=== PATIENT | female | born 1950 | race Caucasian/White ===

== ENCOUNTER → 2017-08-14 09:40 | Outpatient (CLI) | payer MEDICARE, SELFPAY ==
--- NOTE | 2017-08-14 | BRBX_PTH ---
PATIENT: ROMAN KUHN LOC: [facility] U#:[id number] AGE/SX: 74/F ROOM: RE08/14/[address]: Dr. Rakesh Blevins MD : [id number] BED: DIS: SPEC #: [id number] RECD: 08/14/17 14:41 STATUS: VICK RELoi #: [id number] ADINA: 08/14/17 00:[address]: Rakesh Blevins DEPT: SURGICAL PATHOLOGY RECD BY: Maynor Hidalgo ENTERED: 08/14/17 14:42 SP TYPE: BREAST BX OTHR DR: Dr. Alphonse Reyes MD Tissues: Left breast, NOS Procedures: Surgery Specimen Level IV HEADER OPERATION: Left breast stereotactic needle core biopsy PRE-OP DIAGNOSIS: 12 o?clock microcalcifications post depth TISSUE SUBMITTED: Left breast ISCHEMIC TIME: 2 minutes FIXATION TIME: 9.5 hours MICROSCOPIC DIAGNOSIS Left breast, stereotactic needle core biopsy: Adenosis and focal intraductal hyperplasia without atypia. Microfibroadenoma. Banal microcalcifications. No evidence of malignancy. AM:sayra 08/15/17 MICROSCOPIC DESCRIPTION Slides are reviewed. GROSS DESCRIPTION Received in fixative is one container labeled with the patient's name and designated left breast. The specimen consists of multiple irregular and elongated fragments of yellow-white soft tissue that in aggregate measure 7 x 2.2 x 0.2 cm. The specimen is totally submitted in three cassettes. / AM:sayra 08/14/17 TC:5 CPT: 14461
--- NOTE | 2017-08-14 19:32 | PCM.OPRPT ---
Report of Operation Date of Procedure: 08/14/17 Pre-Operative Diagnosis: left breast microcalcifications Post-Operative Diagnosis: left breast microcalcification Surgery/Procedure Performed:: left stereotactic breast biopsy 12:00 deep location with specimen radiograph and gel marker clip placement flask fitter: None Type of Anesthesia:: Local Specimen's removed: left breast tissue Description of Procedure: The patient was brought to the stereotactic suite and informed of the plan course of events. The left breast was positioned in the true lateral to medial position on the [place] stereotactic table. mammographic images didn't position but this is very close to the posterior aspect and required adjustment of the stroke margin. Attempts then to try a cc or a medial to lateral approach, failed to give good localization abnormality. The patient was again positioned in the left true lateral to medial position. Mammographic image demonstrated the area of abnormality to be located in the center of the radiograph. Stereotactic images were then obtained which demonstrated good positioning of the abnormality for biopsy with good stroke mateo parameters. The breast was cleaned with Betadine area did one percent lidocaine was used to anesthetize the skin and a small stab incision made. An 8-gauge mammotome needle was placed into the pre-fire position. Stereotactic images demonstrated good positioning around the planned biopsy site. Local anesthetic injected deeply in the breast. The needle was deployed. Post deployment images demonstrated good positioning of the planned biopsy site. Multiple vacuum-assisted samples were obtained and ugiqwe-oyn-fjzoc fashion. Specimen radiograph demonstrated few micro-calcifications in the sample. A gel marker clip was deployed. Post biopsy images demonstrated good position of the clip relative the biopsy cavity. The breast was removed from compression. Steri-Strips and a dressing applied. Post procedure mammogram images were obtained.
--- NOTE | 2017-08-14 19:35 | OP.PCM_ITS ---
Report of Operation Date of Procedure: 08/14/17 Pre-Operative Diagnosis: left breast microcalcifications Post-Operative Diagnosis: left breast microcalcification Surgery/Procedure Performed:: left stereotactic breast biopsy 12:00 deep location with specimen radiograph and gel marker clip placement histology technologist: None Type of Anesthesia:: Local Specimen's removed: left breast tissue Description of Procedure: The patient was brought to the stereotactic suite and informed of the plan course of events. The left breast was positioned in the true lateral to medial position on the [place] stereotactic table. mammographic images didn't position but this is very close to the posterior aspect and required adjustment of the stroke margin. Attempts then to try a cc or a medial to lateral approach, failed to give good localization abnormality. The patient was again positioned in the left true lateral to medial position. Mammographic image demonstrated the area of abnormality to be located in the center of the radiograph. Stereotactic images were then obtained which demonstrated good positioning of the abnormality for biopsy with good stroke mateo parameters. The breast was cleaned with Betadine area did one percent lidocaine was used to anesthetize the skin and a small stab incision made. An 8-gauge mammotome needle was placed into the pre-fire position. Stereotactic images demonstrated good positioning around the planned biopsy site. Local anesthetic injected deeply in the breast. The needle was deployed. Post deployment images demonstrated good positioning of the planned biopsy site. Multiple vacuum-assisted samples were obtained and nugtmu-jag-vdzhn fashion. Specimen radiograph demonstrated few micro-calcifications in the sample. A gel marker clip was deployed. Post biopsy images demonstrated good position of the clip relative the biopsy cavity. The breast was removed from compression. Steri-Strips and a dressing applied. Post procedure mammogram images were obtained.
== END ==
PROVIDERS: Family Provider Family Medicine; PCP Family Medicine; Visit Provider Surgery
DX: N60.22 Fibroadenosis of left breast (principal); D24.2 Benign neoplasm of left breast; N60.92 Unspecified benign mammary dysplasia of left breast; K21.9 Gastro-esophageal reflux disease without esophagitis; K58.9 Irritable bowel syndrome, unspecified; E78.5 Hyperlipidemia, unspecified; E03.9 Hypothyroidism, unspecified; K59.00 Constipation, unspecified; J30.9 Allergic rhinitis, unspecified; Z79.82 Long term (current) use of aspirin; Z79.899 Other long term (current) drug therapy; F17.210 Nicotine dependence, cigarettes, uncomplicated
CPT/HCPCS: 19081; 88305; J7050

== ENCOUNTER → 2017-12-22 06:50 | Outpatient (CLI) | payer MEDICARE, SELFPAY ==
--- NOTE | 2017-12-22 09:19 | STRESSREP ---
Stress Test Report Pharmacologic myocardial perfusion stress test. 67-year-old lady with a history of chest tightness. Medications pravastatin and ranitidine. Stress protocol: Resting EKG demonstrates normal sinus rhythm with a rate of 63 bpm normal intervals and noted resting blood pressure 722/70 mmHg. Premature ventricular complexes are noted. The patient exercised according to regular Yang protocol for total duration of 8 minutes and 30 seconds the maximum heart rate attained was 146 bpm which was 96% of maximum predicted heart rate the maximum workload attained was 10.1 metabolic equivalents. The patient maintained sinus rhythm throughout the recording occasional premature ventricular complexes were noted. At rest there were no ST or T-wave changes noted suggest ischemia peak exercise no ST changes were noted suggest ischemia the resting blood pressure is 110/70 with a peak blood pressure 126/80 mmHg. No clinical angina was noted the test was terminated due to leg fatigue. Myocardial perfusion protocol. 10.9 mCi of technetium 99m sestamibi was injected at rest. The patient exercised according to regular Yang protocol for 8 minutes and 30 seconds at peak exercise 31.5 mCi of technetium 99m sestamibi was injected stress images were obtained stress and rest images were reconstructed and compared in the short axis vertical long and horizontal long axis. Gated images were also obtained Perfusion SPECT analysis. Review of the stress images demonstrate normal uptake of tracer noted in all areas of the myocardium. The resting images similarly demonstrate normal uptake of tracer noted in all areas of the myocardium. No areas of reversibility are noted suggest ischemia. Gated SPECT analysis: The gated ejection fraction is 72%. Conclusion: Normal exercise myocardial perfusion stress test at a high workload. No clinical angina noted Preserved ejection fraction.
== END ==
PROVIDERS: Family Provider Family Medicine; PCP Family Medicine; Visit Provider Nurse Practitioner Family
DX: R07.89 Other chest pain (principal); R55 Syncope and collapse
CPT/HCPCS: 78452; 93017; A9500; A4216

== ENCOUNTER 2024-05-26 07:37 | Emergency (ER) | payer MEDICARE, SELFPAY ==
[2024-05-26 07:43] VITALS: BP 132/76; PULSE 83; RESP 18; TEMP 36.4; O2SAT 98; BMI 22.4
--- NOTE | 2024-05-26 08:23 | EKG12_ITS ---
Test Reason : Blood Pressure : */* mmHG Vent. Rate : 95 BPM Atrial Rate : 95 BPM P-R Int : 164 ms QRS Dur : 90 ms QT Int : 356 ms P-R-T Axes : 27 -11 56 degrees QTcB Int : 447 ms Normal sinus rhythm Normal ECG Confirmed by Daren Stallings ([id number]), subeditor ANAMARIA IBARRA ([id number]) on 05/28/2024 10:27:58 AM Referred By: Confirmed By: Daren Stallings
--- NOTE | 2024-05-26 08:23 | CT_ITS ---
STUDY: CT ABDOMEN AND PELVIS WITH CONTRAST REASON FOR EXAM: Female, 73 years old. Diffuse abdominal pain RADIATION DOSAGE (If Supplied By Facility): CTDIvol = ( 24.97 ) mGy, DLP = ( 474.73 ) mGycm TECHNIQUE: Transaxial images were obtained from the dome of the diaphragm to the symphysis pubis without oral contrast. IV 100mL Isovue-370 was administered. Sagittal and coronal images were reconstructed. Individualized dose optimization techniques were used for this CT. COMPARISON: None. FINDINGS: The visualized lung bases are unremarkable. The visualized portions of the heart are within normal limits. Normal liver. There is non-visualization of the gallbladder, which may be secondary to either contraction or a prior cholecystectomy. Normal spleen. Normal pancreas. Normal bilateral adrenal glands. Both kidneys show prominent renal pelvis but no obstructive uropathy. There is a simple 2.5 cm left renal cyst. Normal visualized stomach. Nondistended fluid-filled small and large bowel loops suggest diffuse enteritis. Extensive sigmoid diverticulosis without CT evidence of acute diverticulitis, an underlying lesion cannot be excluded. Normal appendix seen on coronal recon images 46 through 57. Normal abdominal aorta. Normal inferior vena cava. Normal retroperitoneum. Normal urinary bladder. Normal abdominal wall. There are diffuse degenerative changes of the visualized lumbar spine, and pelvis, there is a grade 1 spondylolisthesis at L5/S1.. CT/Abdomen/Pelvis W IV Cont ONLY IMPRESSION: Nondistended fluid-filled small and large bowel loops suggest diffuse enteritis. There is extensive sigmoid diverticulosis without CT evidence of acute diverticulitis. However, an underlying lesion within the sigmoid cannot be excluded. 2.5 cm simple left renal cyst, no specific follow-up needed. No free intraperitoneal fluid, air, or suspicious adenopathy, normal appendix visualized Electronically Signed: David Mahajan MD at 9:39 EST ,
--- NOTE | 2024-05-26 08:29 | EDS_ITS ---
HPI HPI - GI History of Present Illness Chief Complaint: Abd Pain Informant: patient Narrative Narrative: Patient is a 73-year-old female presenting with diffuse abdominal pain. Patient states that she is on her last day of doxycycline and finished a course of prednisone yesterday. She was on it for sinusitis. Though symptoms have improved however she is been having worsening GI symptoms for the past few days. She notes that she felt nauseous on Monday, 5 days ago and started to have discomfort from her throat down all the way to her rectum. She states her abdomen just feels bloated and her entire GI tract feels hot. She has previously seen GI through [facility] and started taking her colestipol 3 times a day as well as daily MiraLAX and Benefiber. 2 days ago she took Colace because she still felt like nothing was moving in her stomach and then took a Grimes'. She states she usually tries to avoid taking any stimulant laxatives. She notes yesterday evening she started having copious soft serve style bowel movements. She notes it is a little darker than normal but denies any black or blood in her stool. She is been feeling fatigued. She took an Imodium this morning in anticipation of coming to the emergency room. She denies any fevers. Does have a prior history of cholecystectomy and partial hysterectomy. States she is a diagnosis of IBS and GERD and in the s did have some rectal bleeding inflammatory condition that she had to take medicine for and use suppositories. She is not sure if she has an actual history of Crohn disease, ulcerative colitis or other inflammatory bowel disorder. No other complaints or concerns reported at this time. [facility] Medical History IBS (irritable bowel syndrome) GERD (gastroesophageal reflux disease) Home Medications ?Medication ?Instructions ?Recorded ?Last Taken ?Type ondansetron 4 mg disintegrating 4 mg PO Q8H PRN PRN Nausea #10 tabs 05/26/24 Unknown Rx tablet Allergy/AdvReac Type Severity Reaction Status Date / Time citalopram (From Celexa) Allergy Unknown PT UNSURE Verified 05/26/24 07:43 OF REACTION clarithromycin (From Biaxin) Allergy Unknown PT UNABLE Verified 05/26/24 07:43 TO RESPOND-NEEDS F/U sulfamethoxazole (From Allergy Unknown PT UNSURE Verified 05/26/24 07:43 Bactrim) OF REACTION trimethoprim (From Bactrim) Allergy Unknown PT UNSURE Verified 05/26/24 07:43 OF REACTION atorvastatin (From Lipitor) Allergy PT UNSURE Verified 05/26/24 07:43 OF REACTION cefixime (From Suprax) Allergy PT UNABLE Verified 05/26/24 07:43 TO RESPOND-NEEDS F/U chlorzoxazone (From Parafon Allergy PT UNSURE Verified 05/26/24 07:43 Forte) OF REACTION ciprofloxacin (From Cipro) Allergy PT UNABLE Verified 05/26/24 07:43 TO RESPOND-NEEDS F/U diclofenac (From Voltaren) Allergy PT UNABLE Verified 05/26/24 07:43 TO RESPOND-NEEDS F/U flavoxate (From Urispas) Allergy PT UNABLE Verified 05/26/24 07:43 TO RESPOND-NEEDS F/U guaifenesin (From Entex [place]) Allergy PT UNABLE Verified 05/26/24 07:43 TO RESPOND-NEEDS F/U hyoscyamine (From Levsinex) Allergy PT UNSURE Verified 05/26/24 07:43 OF REACTION moxifloxacin (From Avelox) Allergy PT UNSURE Verified 05/26/24 07:43 OF REACTION paroxetine (From Paxil) Allergy PT UNSURE Verified 05/26/24 07:43 OF REACTION phenylephrine (From Entex LA) Allergy PT UNABLE Verified 05/26/24 07:43 TO RESPOND-NEEDS F/U phenylpropanolamine (From Allergy PT UNABLE Verified 05/26/24 07:43 Entex LA) TO RESPOND-NEEDS F/U Sulfa (Sulfonamide Allergy PT UNABLE Verified 05/26/24 07:43 Antibiotics) TO RESPOND-NEEDS F/U Surgical History History of cholecystectomy History of partial hysterectomy Social History Smoking Status: Current every day smoker tobacco type: cigarettes ROS ROS ED Constitutional Constitutional ED: Denies chills or fever(s) Cardiovascular Cardiovascular: Denies chest pain or palpitations Respiratory/Chest Respiratory/Chest: Denies cough Gastrointestinal Gastrointestinal: Reports abdominal pain, constipation, diarrhea and nausea; Denies melena or vomiting Musculoskeletal Musculoskeletal: Denies arthralgias or myalgias Integumentary Denies rash Neurologic Neurologic: Denies headache(s) or weakness Hematologic/Lymphatic Hematologic/Lymphatic: Denies easy bleeding or easy bruising EXAM Physical Exam Const Vital Signs: 05/26/24 07:43 05/26/24 09:37 05/26/24 11:00 Temperature 97.6 F L Temperature Source Oral Pulse Rate 83 82 79 Respiratory Rate 18 16 16 Blood Pressure 132/76 H 130/87 H 132/88 H Blood Pressure Mean 94 101 102 Pulse Ox 98 99 99 Oxygen Delivery Method Room Air Room Air Positive well nourished and well developed General Appearance ED: well developed and NAD HEENT Reports moist mucous membranes Neck supple Resp normal respiratory effort and clear to auscultation bilaterally Cardio regular rate and regular rhythm GI non-tender and non-distended Auscultation: normoactive bowel sounds Palpation: soft; Negative for tender or guarding Back/Spine no CVA tenderness Extremity full ROM General Extremety ED: Negative for edema General Extremity: Negative for edema Neuro Sensorium / Orientation: alert, oriented to person, oriented to place and oriented to time Motor Exam: Negative for general weakness Psych mental status grossly normal and thought process normal Skin no wounds MDM MDM MDM Narrative Medical decision making narrative: Patient evaluated for diffuse abdominal pain as well as burning esophageal and stomach pain. Has been on recent doxycycline and prednisone. Has had abnormal bowel movements. Differential includes referred ACS, diverticulitis, ileus, pancreatitis, choledocholithiasis, urinary tract infection, inflammatory bowel disease as well as irritable bowel syndrome. Patient declines any medications at this time. Will obtain lab work including CBC, CMP, lipase and urinalysis, CT abdomen pelvis and EKG. Patient is a mild leukocytosis of 13.1. Is unclear if this is elevated from a recent course of prednisone, reactive or associate with acute infection. She is not have a shift. CMP and lipase normal. Urinalysis largely normal not consistent with infection. CT of the abdomen and pelvis does show nondistended fluid-filled small and large bowel loop suggestive of diffuse enteritis. There is also sigmoid diverticulosis without evidence of acute diverticulitis. On repeat evaluation patient is resting comfortably. Given the diffuse enteritis did order stool studies. Patient able to provide us very small stool sample. She will be discharged home with a stool studies pending. I will contact her with the results. Is given dose of Zofran prior to discharge and will prescribe her a course of this. Is encouraged to follow-up with her GI specialist and she might require repeat colonoscopy. Not clear if this is a viral syndrome, infectious enteritis, or irritation/IBS associated with her recent antibiotics and steroids. Since that she is also having some reflux symptoms. At this time will defer further antibiotics or medications. Patient is already on both Pepcid and Protonix. Is given return precautions. Discharged home in stable condition. Discussed return precautions including developing fevers, intractable nausea, severe diarrhea, worsening abdominal pain or blood in her stool. There was not enough stool for the enteric panel however her C. difficile was negative. Stool lactoferrin positive. Patient contacted and notified of these results. Lab Data Labs: Laboratory Results - last 24 hr 05/26/24 05/26/24 08:20 08:40 WBC 13.1 H RBC 4.36 Hgb 14.0 Hct 42.1 MCV 96.6 MCH 32.1 H MCHC 33.3 RDW Std Deviation 48.2 H RDW Coeff of Zana 13.5 Plt Count 285 MPV 8.3 Immature Gran % (Auto) 0.500 Neut % (Auto) 45.2 L Lymph % (Auto) 43.0 H [place] % (Auto) 9.3 Eos % (Auto) 1.5 Baso % (Auto) 0.5 Absolute Neuts (auto) 5.9 Absolute Lymphs (auto) 5.61 H Nucleated RBC % 0 Sodium 139 Potassium 3.6 Chloride 105 Carbon Dioxide 27.0 Anion Gap 8 BUN 9 Creatinine 0.77 Estim Creat Clear Calc 50.26 Est GFR (MDRD) Af Amer 94 Est GFR (MDRD) Non-Af 78 BUN/Creatinine Ratio 11.7 Glucose 115 H Calcium 9.3 Total Bilirubin 0.50 AST 17 ALT 27 Alkaline Phosphatase 67 Total Protein 6.6 Albumin 3.6 Globulin 3.0 Albumin/Globulin Ratio 1.2 Lipase 49 Urine Color Straw Urine Clarity Clear Urine pH 7.0 Ur Specific [place] 1.010 Urine Protein Negative Urine Glucose (UA) Normal Urine Ketones Negative Urine Occult Blood Negative Urine Nitrite Negative Urine Bilirubin Negative Urine Urobilinogen Normal Ur Leukocyte Esterase 25 H Urine RBC 0 SEEN Urine WBC 0-5 SEEN Ur Squamous Epith Cells 0 SEEN Urine Bacteria 0 SEEN Urine Mucus 0 SEEN Radiography Diagnostic Testing: Clinical Impression(s) from Imaging Studies Abdomen/Pelvis CT 05/26/24 08:23 IMPRESSION: Nondistended fluid-filled small and large bowel loops suggest diffuse enteritis. There is extensive sigmoid diverticulosis without CT evidence of acute diverticulitis. However, an underlying lesion within the sigmoid cannot be excluded. 2.5 cm simple left renal cyst, no specific follow-up needed. No free intraperitoneal fluid, air, or suspicious adenopathy, normal appendix visualized Electronically Signed: David Mahajan MD at 9:39 EST , Rhythm Strip Rhythm Strip: Sinus Rhythm Rate: 95 Ectopy: None EKG Initial EKG: Attestation: I personally reviewed and interpreted this EKG as follows: Comments: Normal sinus rhythm at a rate of 95 bpm Normal axis Normal intervals Normal ST segments Discharge Plan Triage Chief Complaint: Abd Pain ED Provider: Yas Winchester Dx/Rx/DC Orders Clinical Impression: Generalized abdominal pain, Diarrhea, Nausea, Enteritis Instructions: ED Abdominal Pain Unkn Cause Fem, ED Gastroenteritis, Noninfectious Prescriptions: New ondansetron 4 mg tablet,disintegrating 4 mg PO Q8H PRN PRN (Reason: Nausea) Qty: 10 0RF Primary Care Provider: Alphonse Reyes Referrals: Alphonse Reyes MD [Primary Care Provider] - Friend,DO Chucky [Med Staff - Active Staff] - 1 Week if not improving Activity Restrictions/Additional Instructions: I will contact you with your stool results. Your lab work showed a very mild elevation of your white blood cell count which is nonspecific. It was otherwise normal. Your CT showed findings consistent with enteritis which could be from a viral syndrome or inflammation of the small and large intestine. I would avoid taking further antidiarrheal medications until the stool studies come back. We will hold off on any further antibiotics at this time. I would recommend follow-up with a GI specialist. You been given referral to our GI specialist if you cannot get in with your prior 1 through the [facility]. If you develop blood in your stool, fever, worsening abdominal pain or further concerns please return to the emergency room. Otherwise please follow-up with your primary care doctor. Print Language: [place] Disposition Disposition: Home, Self Care Discharge Date/Time: 05/26/24 11:06
[2024-05-26 08:32] LABS: Absolute Lymphocyte Count 5.61 X10^3/uL (0.83-4.51); Absolute Neutrophil Count 5.9 X10^3/uL (2.0-7.7); Basophil# 0.06 X10^3/uL; Basophil% 0.5 % (0-1); Eosinophils% 1.5 % (0-5); Hematocrit 42.1 % (37-47); Lymphocyte # 5.61 X10^3/ul (0.83-4.51); Mean Corp Hgb Conc 33.3 g/dL (32-36); Mean Corpuscular Hgb 32.1 pg (27.0-32.0); Mean Corpuscular Volume 96.6 fL (81-99); Mean Platelet Vol. 8.3 fl (6.2-12.0); Monocyte# 1.21 X10^3/uL; Monocyte% 9.3 % (0-10); NRBC Flagged by Analyzer 0 % (0-5); Neutrophil % 45.2 % (47-70); POSITIVE DIFFERENTIAL YES; Platelet Count 285 K/mm3 (150-450); RBC Distribution Width CV 13.5 % (11.6-14.6); RBC Distribution Width SD 48.2 fl (35.1-43.9); Red Blood Count 4.36 M/mm3 (4.2-5.4); White Blood Count 13.1 K/mm3 (4.4-11.0)
[2024-05-26 08:33] LABS: Differential Indicated SCAN CRITERIA MET
[2024-05-26 08:47] LABS: Bacteria 0 SEEN /hpf (None Seen); Mucous, Urine 0 SEEN /hpf (<or=2+); Red Blood Cells-Urine 0 SEEN /hpf (0-5); Squamous Epithelial Cells - UA 0 SEEN /hpf (5-10)
[2024-05-26 08:49] LABS: ALB/GLOB Ratio 1.2 RATIO (0.9-2.4); AST(SGOT) 17 U/L (15-37); Alanine Aminotransfer ALT/SGPT 27 U/L (13-56); Albumin, Serum 3.6 g/dL (3.2-5.0); Alkaline Phosphatase 67 U/L (45-117); Anion Gap 8 (5-15); BUN 9 mg/dL (7-18); BUN/Creat Ratio 11.7 RATIO (10-20); Calcium,Total 9.3 mg/dL (8.5-10.1); Chloride 105 mmol/L (98-107); Creatinine, Serum 0.77 mg/dL (0.55-1.02); EST Glomerular Filtration Rate 78 mL/min (>60); Est Glom Filt Rate - Afr Amer 94 mL/min (>60); Estimated Creatinine Clearance 50.26 ml/min; Glucose 115 mg/dL (74-106); Lipase 49 U/L (13-75); Potassium 3.6 mmol/L (3.5-5.1); Protein, Total 6.6 g/dL (6.4-8.2); Sodium Level 139 mmol/L (136-145)
[2024-05-26 08:58] LABS: Color, Urine Straw (Yellow); Glucose, Dipstick Normal (Normal); Ketone-Dipstick Negative (Negative); Leukocyte Esterase-Dipstick 25 /ul (Negative); Nitrite-Dipstick Negative (Negative); Occult Blood-Urine Negative /ul (Negative); Protein-Dipstick Negative (Negative); Urine Bilirubin Dipstick Negative (Negative); Urine Clarity Clear (Clear); Urine Urobilinogen Normal (Normal)
[2024-05-26 09:21] LABS: White Blood Cells 0-5 SEEN /hpf (0-5)
[2024-05-26 09:37] VITALS: BP 130/87; PULSE 82; RESP 16; O2SAT 99
[2024-05-26] MEDS: Ondansetron ODT 4 MG Tablet PO (10:59)
[2024-05-26 11:00] VITALS: BP 132/88; PULSE 79; RESP 16; O2SAT 99
== END 2024-05-26 11:06 | disposition home or self-care (01) ==
PROVIDERS: Emergency Provider Emergency Medicine; PCP Family Medicine; Visit Provider Emergency Medicine
DX: K52.9 Noninfective gastroenteritis and colitis, unspecified (principal); K57.30 Diverticulosis of large intestine without perforation or abscess without bleeding; R10.84 Generalized abdominal pain; K21.9 Gastro-esophageal reflux disease without esophagitis; Z90.49 Acquired absence of other specified parts of digestive tract; N28.1 Cyst of kidney, acquired
CPT/HCPCS: 74177; 80053; 81001; 83630; 83690; 85025; 87493; 93005; 99283; Q9967; A4216

== ENCOUNTER → 2024-06-27 | Outpatient (CLI) | payer MEDICARE, SELFPAY ==
[2024-06-27 16:00] LABS: Erythrocyte Sedimentation Rate 5 mm/hr (0-30)
[2024-06-27 16:30] LABS: Vitamin B12 766 pg/mL (211-911)
[2024-06-27 17:10] LABS: Amylase 52 U/L (25-115); CRP < 2.90 mg/L (0.0-3.0); Lipase 45 U/L (13-75)
[2024-07-04 12:07] LABS: ACCA 12 units (0-90); ALCA 78 units (0-60); AMCA 13 units (0-100); Alpha-1-Globulins 0.3 g/dL (0.0-0.4); Alpha-2-Globulins 0.8 g/dL (0.4-1.0); Cytoplasmic Ab (C-ANCA) <1:20 titer (Neg:<1:20); Endomysial Antibody IgA Negative (Negative); Gamma Globulin 0.7 g/dL (0.4-1.8); Gastrin, Serum 963 pg/mL (0-115); IMMUNOFIXATION RESULT,S Comment: (.); Immunoglobulin A 138 mg/dL (64-422); Immunoglobulin E 717 IU/mL (6-495); Immunoglobulin G 802 mg/dL (586-1602); Immunoglobulin M 39 mg/dL (26-217); PROEL- TOTAL PROTEIN 6.8 g/dL (6.0-8.5); Perinuclear Ab (P-ANCA) <1:20 titer (Neg:<1:20); gASCA 37 units (0-50); t-Transglutaminase IgA <2 U/mL (0-3)
[2024-07-04 18:07] LABS: Anti-Centromere B Ab <0.2 AI (0.0-0.9); Anti-Chromatin <0.2 AI (0.0-0.9); Anti-Jo <0.2 AI (0.0-0.9); Anti-Scleroderma-70 AB <0.2 AI (0.0-0.9); Anti-dsDNA Ab <1 IU/mL (0-9); Beef <0.10 kU/L (Class 0); Chocolate <0.10 kU/L (Class 0); Codfish <0.10 kU/L (Class 0); Corn <0.10 kU/L (Class 0); Egg, Whole 0.35 kU/L (Class I); Milk (Cow) <0.10 kU/L (Class 0); Mussels <0.10 kU/L (Class 0); Peanut <0.10 kU/L (Class 0); Pork <0.10 kU/L (Class 0); RNP Ab 0.2 AI (0.0-0.9); SJOGREN'S Anti-SS-A test < 0.2 AI (0.0-0.9); SJOGREN'S Anti-SS-B test < 0.2 AI (0.0-0.9); Salmon <0.10 kU/L (Class 0); Shrimp 0.19 kU/L (Class 0/I); Smith Ab <0.2 AI (0.0-0.9); Soybean <0.10 kU/L (Class 0); Tuna <0.10 kU/L (Class 0); Wheat <0.10 kU/L (Class 0)
== END | disposition home or self-care (01) ==
LOC: LAB 15:03
PROVIDERS: PCP Family Medicine; Referring Provider Internal Medicine Gastroenterology; Visit Provider Internal Medicine Gastroenterology
DX: R19.7 Diarrhea, unspecified (principal); K58.9 Irritable bowel syndrome, unspecified
CPT/HCPCS: 36415; 82150; 82607; 82746; 82784; 82785; 82941; 83516; 83690; 84165; 85652; 86003; 86005; 86036; 86037; 86140; 86225; 86235; 86255; 86334; 86340; 86671

== ENCOUNTER → 2024-06-28 | Outpatient (CLI) | payer MEDICARE, SELFPAY ==
[2024-07-02 18:07] LABS: Calprotectin, Stool 323 ug/g (0-120)
== END | disposition home or self-care (01) ==
LOC: LABSPEC 08:17
PROVIDERS: PCP Family Medicine; Referring Provider Internal Medicine Gastroenterology; Visit Provider Internal Medicine Gastroenterology
DX: R19.7 Diarrhea, unspecified (principal)
CPT/HCPCS: 83993

== ENCOUNTER → 2024-08-15 | Outpatient (CLI) | payer MEDICARE, SELFPAY ==
--- NOTE | 2024-08-15 10:10 | MRI_ITS ---
EXAM: MRI of the abdomen/pelvis without and with IV contrast. CLINICAL HISTORY: Noninfective gastroenteritis/colitis. History of irritable bowel syndrome for 30 years. COMPARISON: CT of the abdomen/pelvis 05/26/2024 TECHNIQUE: Multiplanar, multisequence MRI images of the abdomen/pelvis were obtained without and with intravenous contrast. 11 cc of Dotarem IV contrast was administered. FINDINGS: Mild degenerative changes in the spine. Osseous structures of the abdomen/pelvis otherwise unremarkable. No focal abnormality of the urinary bladder. The uterus appears to be absent. No adnexal mass. The included heart and lower mediastinal structures, as well as the lower lungs are unremarkable. No large abdominal wall defect. Abdominal aorta normal in caliber. No abdominal/pelvic adenopathy or ascites. No omental or central mesenteric mass demonstrated. The liver, adrenal glands, spleen, and pancreas show no specific abnormality. There is a moderate amount of fluid signal in the stomach. No discrete gastric lesion. Kidneys are symmetric in signal and morphology. No solid appearing renal mass or obstructive uropathy. Nonenhancing 2.1 cm mostly intraparenchymal cyst posterior mid left kidney. The origins of the major abdominal aortic side branches appear patent. No abnormally dilated bowel segments. Moderate stool in the colon. No gross abnormal bowel wall thickening or mesenteric inflammatory changes. MRI/Enterography Abd/Pel IMPRESSION: No definite acute findings in the abdomen/pelvis. No gross bowel wall thickening or abnormal inflammatory changes in the abdomen/ pelvis, to strongly suggest active inflammatory bowel disease. Solid organs of the abdomen are unremarkable except for a nonenhancing 2.1 cm i ntraparenchymal cyst posterior mid left kidney. No dedicated imaging follow-up recommended. No abdominal/pelvic adenopathy or ascites. Reading Location: [facility]
[2024-08-15 10:33] VITALS: BP 112/69; PULSE 93; RESP 14; O2SAT 97; BMI 21.9
[2024-08-15] MEDS: Glucagon 1 MG/ML Syringe IV (11:53)
[2024-08-15 12:06] VITALS: BP 141/71; PULSE 93; RESP 16; O2SAT 97
== END | disposition home or self-care (01) ==
LOC: MRI 09:51
PROVIDERS: PCP Family Medicine; Referring Provider Internal Medicine Gastroenterology; Visit Provider Internal Medicine Gastroenterology
DX: K52.9 Noninfective gastroenteritis and colitis, unspecified (principal)
CPT/HCPCS: 74183; 96374; A9575; A4216; J1610

== ENCOUNTER 2024-09-17 12:25 | Day surgery (SDC) | payer MEDICARE, SELFPAY ==
[2024-09-17] VITALS (9 sets, daily range): BP systolic 78–132; BP diastolic 49–91; PULSE 85–100; RESP 16–20; TEMP 36.5–36.8; O2SAT 98–100; BMI 22.1
--- NOTE | 2024-09-17 13:08 | PRE.ANES_ITS ---
ASA Classification* ASA Classification ASA Classification: 2 (GERD, Thyroid, HLD, IBS) Assessment & Plan Anesthesia* Anesthesia Assessment Anesthesia Assessment: Discussed sedation and/or anesthesia options, risks, benefits, and alternatives with patient/parents/legal guardian/POA. Questions invited. The patient/parents/legal guardian/POA seems to understand and agrees to proceed with anesthesia plan. Reviewed the physical assessment, medical history, allergy history and patient home medications list prior to surgery/procedure/anesthetic and documented any changes. Performed airway and anesthesia risk assessments. Anesthesia Type Anesthesia Type: General History Source History Obtained from:: Patient and Chart Anesthesia Focused Assessment* Temperature: 98 F Pulse Rate: 100 Blood Pressure: 121/71 Respiratory Rate: 16 Pulse Ox: 99 Oxygen Delivery Method: Room Air Airway Assessment Mouth opens: >3 cm Mallampati Score: II Teeth Condition: Intact Neck Range of motion (ROM): Full ROM Focused Labs Anesthesia Preop lab: CBC WBC 13.1 K/mm3 (4.4-11.0) H 05/26/24 08:20 4 RBC 4.36 M/mm3 (4.2-5.4) 05/26/24 08:20 05/26/24 Hgb 14.0 g/dL (12.0-15.0) 05/26/24 08:20 05/26/24 Hct 42.1 % (37-47) 05/26/24 08:20 05/26/24 Plt Count 285 K/mm3 (150-450) 05/26/24 08:20 05/26/24 CHEMISTRY Potassium 3.6 mmol/L (3.5-5.1) 05/26/24 08:20 05/26/24 Sodium 139 mmol/L (136-145) 05/26/24 08:20 05/26/24 BUN 9 mg/dL (7-18) 05/26/24 08:20 05/26/24 Creatinine 0.77 mg/dL (0.55-1.02) 05/26/24 08:20 05/26/24 Glucose 115 mg/dL (74-106) H 05/26/24 08:20 05/26/24 COAG Pre-Assessment Diagnosis/Proposed Procedure Planned Operative Procedure(s): EGD, CSCOPE Anesthesia History 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 When Was Last Pacemaker Check QUESTION #4 FULL TEXT: You/Your Family Experience fever (hyperthermia) with Anesthesia Last Oral Intake Last Oral intake: Last Oral Intake NPO since 08:00 09/17/24 12:49 Meds taken in AM with sips of No 09/17/24 12:49 water? 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 Female Yes 09/16/24 12:51 HX of Motion Sickness No 09/16/24 12:51 HX of N/V After Surgery No 09/16/24 12:51 Non-Smoker No 09/16/24 12:51 Duration of Surgery greater No 09/16/24 12:51 than 60 minutes Number of Risk Factors 1 09/16/24 12:51 PONV Score Low Risk 09/16/24 12:51 Height & Weight Height & Weight: Anesthesia: Height & Weight Height 5 ft 3 in 09/17/24 12:49 Weight: 56.6 kg 09/17/24 12:49 Body Mass Index (BMI) 22.1 09/17/24 12:49 Respiratory Assessment Respiratory Assessment - rice farmworker: Respiratory Tract Infection Hx - rice farmworker Hx Respiratory Tract Infection No 09/16/24 12:51 STOP Sleep Apnea STOP Sleep Apnea - rice farmworker: STOP Sleep Apnea - rice farmworker Hx Hypertension No 09/16/24 12:51 Hx Sleep Apnea No 09/16/24 12:51 CPAP BIPAP Do you snore loudly (louder No 09/16/24 12:51 than talking or can be heard Do you often feel tired/ No 09/16/24 12:51 fatigued/ sleepy during daytime? Has anyone observed you stop No 09/16/24 12:51 breathing during sleep? STOP Results Negative 09/16/24 12:51 QUESTION #5 FULL TEXT : Do you snore loudly (louder than talking or can be heard through closed doors)? 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 Specify any problems Hx of Preganancy in last 3 N/A 09/16/24 12:51 Months Nurse Filling Out Transfusion NBUCHER 09/16/24 12:51 & Questions: Date: 09/16/24 09/16/24 12:51 Time: 12:52 09/16/24 12:51 Patient unable to answer at this time (ie. confused, unrespo /Reproduction History /Reproductive History - rice farmworker: /Reproductive Hx- rice farmworker Hx Now No 09/16/24 12:51 Gestational Age (in weeks): EDC: Hx Hx Para Hx Section SAB No 09/16/24 12:51 PFS Medical History (Updated 09/16/24 @ 12:59 by Lee Ann May) Hypothyroid Thyroid disease Arthritis High cholesterol History of IBS Smoker History of stress test IBS (irritable bowel syndrome) GERD (gastroesophageal reflux disease) Home Medications ?Medication ?Instructions ?Recorded ?Last Taken ?Type colestipol 1 gram tablet 1 g PO QDAY 06/27/24 Unknown History famotidine 20 mg tablet 20 mg PO QDAY 06/27/24 Unkno wn History levothyroxine 112 mcg capsule 112 mcg PO QDAY 06/27/24 Unknown History pantoprazole 40 mg tablet,delayed 40 mg PO QDAY Unknown History release pravastatin 40 mg tablet 40 mg PO QDAY 06/27/24 Unkno wn History Allergy/AdvReac Type Severity Reaction Status Date / Time citalopram (From Celexa) Allergy Unknown PT UNSURE Verified 09/17/24 12:48 OF REACTION clarithromycin (From Biaxin) Allergy Unknown PT UNABLE Verified 09/17/24 12:48 TO RESPOND-NEEDS F/U sulfamethoxazole (From Allergy Unknown PT UNSURE Verified 09/17/24 12:48 Bactrim) OF REACTION trimethoprim (From Bactrim) Allergy Unknown PT UNSURE Verified 09/17/24 12:48 OF REACTION atorvastatin (From Lipitor) Allergy PT UNSURE Verified 09/17/24 12:48 OF REACTION cefixime (From Suprax) Allergy PT UNABLE Verified 09/17/24 12:48 TO RESPOND-NEEDS F/U chlorzoxazone (From Parafon Allergy PT UNSURE Verified 09/17/24 12:48 Forte) OF REACTION ciprofloxacin (From Cipro) Allergy PT UNABLE Verified 09/17/24 12:48 TO RESPOND-NEEDS F/U diclofenac (From Voltaren) Allergy PT UNABLE Verified 09/17/24 12:48 TO RESPOND-NEEDS F/U flavoxate (From Urispas) Allergy PT UNABLE Verified 09/17/24 12:48 TO RESPOND-NEEDS F/U guaifenesin (From Entex LA) Allergy PT UNABLE Verified 09/17/24 12:48 TO RESPOND-NEEDS F/U hyoscyamine (From Levsinex) Allergy PT UNSURE Verified 09/17/24 12:48 OF REACTION moxifloxacin (From Avelox) Allergy PT UNSURE Verified 09/17/24 12:48 OF REACTION paroxetine (From Paxil) Allergy PT UNSURE Verified 09/17/24 12:48 OF REACTION phenylephrine (From Entex LA) Allergy PT UNABLE Verified 09/17/24 12:48 TO RESPOND-NEEDS F/U phenylpropanolamine (From Allergy PT UNABLE Verified 09/17/24 12:48 Entex LA) TO RESPOND-NEEDS F/U Sulfa (Sulfonamide Allergy PT UNABLE Verified 09/17/24 12:48 Antibiotics) TO RESPOND-NEEDS F/U Surgical History (Updated 09/16/24 @ 12:59 by Lee Ann May) History of colonoscopy History of esophagogastroduodenoscopy (EGD) Status post panniculectomy (~1980) History of cholecystectomy History of partial hysterectomy Social History Smoking Status: Current every day smoker tobacco type: cigarettes Review of Systems (Anesthesia) ROS Narrative System reviewed and no additional complaints, except as documented. Physical Exam Const alert, oriented x3 and average body habitus Resp normal respiratory effort, normal air movement and clear to auscultation bilaterally Cardio regular rate, regular rhythm, no murmurs and diaphoretic
--- NOTE | 2024-09-17 13:30 | EGD_PTH ---
PATIENT: ROMAN KUHN LOC: EN U#:[id number] AGE/SX: 73/F ROOM: RE09/17/[address]: Dr. Chucky Woodall DO : 1950 BED: DIS: 09/17/2024 SPEC #: [id number] RECD: 09/18/24 09:26 STATUS: VICK RELoi #: [id number] ADINA: 09/17/24 13:[address]: Chucky Woodall DEPT: SURGICAL PATHOLOGY RECD BY: Dylan Rivers ENTERED: 09/18/24 09:26 SP TYPE: EGD BIOPSY ADAN DR: Dr. Alphonse Reyes MD Tissues: A - Gastric mucous membrane Procedures: Immunohistochemical Stains Surgery Specimen Level IV HEADER OPERATION: Colonoscopy, EGD with biopsy PRE-OP DIAGNOSIS: Abdominal pain TISSUE SUBMITTED: A- Gastric body biopsy MICROSCOPIC DIAGNOSIS Gastric body, biopsy:Chronic gastritisAn immunohistochemical stain for H. pylori organisms with appropriate controls is negative for organisms.J ilors MD, 09/26/2024 MICROSCOPIC DESCRIPTION Slides are reviewed. These tests were developed and their performance characteristics determined by [facility]. They may not have been cleared or approved by the U.[place]. Food and Drug Administration. The FDA has determined that such clearance or approval is not necessary. The above immunohistochemical/dualISH markers are ordered and reviewed by the Pathologist. GROSS DESCRIPTION A. Received in fixative is one container labeled with the patient's name and designated Gastric body biopsy. The specimen consists of multiple irregular fragments of light cruz soft tissue that in aggregate measure 1.2 x 0.4 x 0.2 cm. The specimen is totally submitted in one cassette. 09/18/2024 CPT:75038 ,98090, TC:3
--- NOTE | 2024-09-17 14:54 | HP.PCM_ITS ---
HPI - General General Date of Admission: 09/17/24 Date of Service: 09/17/24 Chief Complaint: Abdominal pain HPI Narrative ROMAN KUHN, is a 73 F who presentsLUBA KUHN, is a 73 F who presents to the office today for initial consult. *BGI established 06.27.24 Pt reports long history of IBS and GERD. Pt reports being on antibiotics and steroids in the past few weeks and feels this has exacerbated her symptoms. Pt reported daily use of miralax and benefiber, usually has a daily bm. Pt reports increased nausea with constipation. Pt states that she was told she has an extra 10 inches of intestines and wonders if this is affecting her digestion. ROS Const Constitutional: Positive for fatigue; No fever(s) or weight change ENT ENT: No difficulty swallowing Cardio Cardiology: Positive for leg pain with exertion Gastro GI: Positive for bloating, constipation, excessive flatus and nausea/dyspepsia; No abdominal pain, belching, change in bowel habits, change in stool character, coffee ground emesis, cramping, diarrhea, heartburn, difficulty swallowing, feeling full early, incontinent of stools, Vomiting blood/hematemesis, Blood in stool, loose stools, Black,tarry stools, pain with swallowing, vomiting or other Musc Musculoskeletal: Positive for joint pain, back pain, stiffness, Arthritis and leg pain with exertion Skin Skin: Positive for dry skin; No yellowing of the eye or itchy eyes Psych Psychiatric: No anxiety and No depression Endo Endocrine: Positive for fatigue; No weight change Aller/Imm Allergy/Immunologic: No itchy eyes Rolo/Lymp Hematologic/Lymphatic: Positive for easy bruising; No easy bleeding Exam Const General: cooperative, healthy appearing, comfortable, no acute distress, well developed and well groomed Nutritional Appearance: average body habitus and well nourished Orientation: alert, awake and oriented x3 Limitations: altered mental status Eyes General: appearance normal, both eyes and all related structures Neck Neck: normal visual inspection, no lymphadenopathy, trachea midline and supple Resp Effort & Inspection: normal respiratory effort, able to speak in complete sentences and symmetric chest movement Auscultation: Bilateral: Clear to Auscultation Cardio Palpation: normal PMI Rate: regular rate Rhythm: regular rhythm Heart Sounds: S1 normal and S2 normal GI Inspection: normal to inspection Auscultation: normal bowel sounds Percussion: normal to percussion Palpation: soft Rectal Exam: visual inspection normal Assessment and Plan Assessment and Plan (1) Gastroesophageal reflux disease: (2) Diarrhea: Status: Inactive (3) IBS (irritable bowel syndrome): Status: Acute Plan: Patient is a 73-year-old female presenting with diffuse abdominal pain. Patient states that she is on her last day of doxycycline and finished a course of prednisone yesterday. She was on it for sinusitis. Though symptoms have improved however she is been having worsening GI symptoms for the past few days. She notes that she felt nauseous on Monday, 5 days ago and started to have discomfort from her throat down all the way to her rectum. She states her abdomen just feels bloated and her entire GI tract feels hot. She has previously seen GI through [facility] and started taking her colestipol 3 times a day as well as daily MiraLAX and Benefiber. 2 days ago she took Colace because she still felt like nothing was moving in her stomach and then took a Grimes'. She states she usually tries to avoid taking any stimulant laxatives. She notes yesterday evening she started having copious soft serve style bowel movements. She notes it is a little darker than normal but denies any black or blood in her stool. She is been feeling fatigued. She took an Imodium this morning in anticipation of coming to the emergency room. She denies any fevers. Does have a prior history of cholecystectomy and partial hysterectomy. States she is a diagnosis of IBS and GERD and in the 90s did have some rectal bleeding inflammatory condition that she had to take medicine for and use suppositories. She is not sure if she has an actual history of Crohn disease, ulcerative colitis or other inflammatory bowel disorder. No other complaints or concerns reported at this time. She has not had any imaging. She did do very well with antibiotic therapy and transition to probiotic. We will test her stool for exocrine pancreatic insufficiency and an occult infection. She will also get biochemical profile for autoimmune disease such as inflammatory bowel disease, celiac disease that may affect her GI tract. We will have her continue on probiotic for now. Orders: Orders Calprotectin, Stool Today R19.7 - Diarrhea, unspecified CRP Today R19.7 - Diarrhea, unspecified Celiac Disease Profile Today R19.7 - Diarrhea, unspecified JOSE + Protein Elect, Serum Today R19.7 - Diarrhea, unspecified ANCA Today R19.7 - Diarrhea, unspecified Erythrocyte Sed Rate Today R19.7 - Diarrhea, unspecified Immunoglobulins G/A/M/E Today R19.7 - Diarrhea, unspecified IBD Expanded Profile Today R19.7 - Diarrhea, unspecified Vitamin B12 Today R19.7 - Diarrhea, unspecified Folates, (Folic Acid) Today R19.7 - Diarrhea, unspecified Allergen, Food Profile 14 Today R19.7 - Diarrhea, unspecified Lipase Today R19.7 - Diarrhea, unspecified Amylase Today R19.7 - Diarrhea, unspecified Anti-Parietal Cell AB, QN Today R19.7 - Diarrhea, unspecified Gastrin, Serum Today R19.7 - Diarrhea, unspecified DARIO Comprehensive Panel Today R19.7 - Diarrhea, unspecified Intrinsic Factor Ab Today K58.9 - Irritable bowel syndrome, unspecified PFSH Medical History Hypothyroid Thyroid disease Arthritis High cholesterol History of IBS Smoker History of stress test IBS (irritable bowel syndrome) GERD (gastroesophageal reflux disease) Home Medications ?Medication ?Instructions ?Recorded ?Last Taken ?Type colestipol 1 gram tablet 1 g PO QDAY 06/27/24 Unknown History famotidine 20 mg tablet 20 mg PO QDAY 06/27/24 Unkno wn History levothyroxine 112 mcg capsule 112 mcg PO QDAY 06/27/24 Unknown History pantoprazole 40 mg tablet,delayed 40 mg PO QDAY Unknown History release pravastatin 40 mg tablet 40 mg PO QDAY 06/27/24 Unkno wn History Allergy/AdvReac Type Severity Reaction Status Date / Time citalopram (From Celexa) Allergy Unknown PT UNSURE Verified 09/17/24 12:48 OF REACTION clarithromycin (From Biaxin) Allergy Unknown PT UNABLE Verified 09/17/24 12:48 TO RESPOND-NEEDS F/U sulfamethoxazole (From Allergy Unknown PT UNSURE Verified 09/17/24 12:48 Bactrim) OF REACTION trimethoprim (From Bactrim) Allergy Unknown PT UNSURE Verified 09/17/24 12:48 OF REACTION atorvastatin (From Lipitor) Allergy PT UNSURE Verified 09/17/24 12:48 OF REACTION cefixime (From Suprax) Allergy PT UNABLE Verified 09/17/24 12:48 TO RESPOND-NEEDS F/U chlorzoxazone (From Parafon Allergy PT UNSURE Verified 09/17/24 12:48 Forte) OF REACTION ciprofloxacin (From Cipro) Allergy PT UNABLE Verified 09/17/24 12:48 TO RESPOND-NEEDS F/U diclofenac (From Voltaren) Allergy PT UNABLE Verified 09/17/24 12:48 TO RESPOND-NEEDS F/U flavoxate (From Urispas) Allergy PT UNABLE Verified 09/17/24 12:48 TO RESPOND-NEEDS F/U guaifenesin (From Entex LA) Allergy PT UNABLE Verified 09/17/24 12:48 TO RESPOND-NEEDS F/U hyoscyamine (From Levsinex) Allergy PT UNSURE Verified 09/17/24 12:48 OF REACTION moxifloxacin (From Avelox) Allergy PT UNSURE Verified 09/17/24 12:48 OF REACTION paroxetine (From Paxil) Allergy PT UNSURE Verified 09/17/24 12:48 OF REACTION phenylephrine (From Entex LA) Allergy PT UNABLE Verified 09/17/24 12:48 TO RESPOND-NEEDS F/U phenylpropanolamine (From Allergy PT UNABLE Verified 09/17/24 12:48 Entex LA) TO RESPOND-NEEDS F/U Sulfa (Sulfonamide Allergy PT UNABLE Verified 09/17/24 12:48 Antibiotics) TO RESPOND-NEEDS F/U Surgical History History of colonoscopy History of esophagogastroduodenoscopy (EGD) Status post panniculectomy (~1980) History of cholecystectomy History of partial hysterectomy Social History Smoking Status: Current every day smoker tobacco type: cigarettes ROS Constitutional Constitutional: Denies fatigue, fever(s), poor appetite, weight gain or weight loss Gastrointestinal Gastrointestinal: Denies belching, bloating, change in bowel habits, change in stool character, chewing difficulty, coffee ground emesis, constipation, cramping, diarrhea, dyspepsia, dysphagia, early satiety, excessive flatus, fecal incontinence, heartburn, hematemesis, hematochezia, hemorrhoids, loose stools, melena, nausea, odynophagia, rectal bleeding, tenesmus, vomiting or weight changes Vital Signs Vital Signs Vital Signs: 09/17/24 12:49 09/17/24 12:49 09/17/24 13:11 Temperature 98 F 98 F Temperature Source Temporal Pulse Rate 100 100 Respiratory Rate 16 16 Respiratory Pattern Normal Blood Pressure 121/71 H 121/71 H Blood Pressure Mean 87 Blood Pressure Source Monitor Blood Pressure Position Semi-Fowlers Blood Pressure Location Right Arm Pulse Ox 99 99 Oxygen Delivery Method Room Air Room Air Weight Weight: 124 lb 12.506 oz Body Mass Index (BMI) 22.1 Physical Exam Const alert, oriented x3, no apparent distress and healthy appearing General Appearance: cooperative GI normal to inspection, nondistended, normoactive bowel sounds, soft to palpation, non-tender and non-distended Percussion: normal to percussion Rectal Exam: deferred Assessment & Plan Assessment/Plan (1) IBS (irritable bowel syndrome): PLAN: Assessment and Plan Assessment and Plan (1) Gastroesophageal reflux disease: (2) Diarrhea: Status: Inactive (3) IBS (irritable bowel syndrome): Status: Acute Plan: Patient is a 73-year-old female presenting with diffuse abdominal pain. Patient states that she is on her last day of doxycycline and finished a course of prednisone yesterday. She was on it for sinusitis. Though symptoms have improved however she is been having worsening GI symptoms for the past few days. She notes that she felt nauseous on Monday, 5 days ago and started to have discomfort from her throat down all the way to her rectum. She states her abdomen just feels bloated and her entire GI tract feels hot. She has previously seen GI through [facility] and started taking her colestipol 3 times a day as well as daily MiraLAX and Benefiber. 2 days ago she took Colace because she still felt like nothing was moving in her stomach and then took a Grimes'. She states she usually tries to avoid taking any stimulant laxatives . She notes yesterday evening she started having copious soft serve style bowel movements. She notes it is a little darker than normal but denies any black or blood in her stool. She is been feeling fatigued. She took an Imodium this morning in anticipation of coming to the emergency room. She denies any fevers. Does have a prior history of cholecystectomy and partial hysterectomy. States she is a diagnosis of IBS and GERD and in the 90s did have some rectal bleeding inflammatory condition that she had to take medicine for and use suppositories. She is not sure if she has an actual history of Crohn disease, ulcerative colitis or other inflammatory bowel disorder. No other complaints or concerns reported at this time. She has not had any imaging. She did do very well with antibiotic therapy and transition to probiotic. We will test her stool for exocrine pancreatic insufficiency and an occult infection. She will also get biochemical profile for autoimmune disease such as inflammatory bowel disease, celiac disease that may affect her GI tract. We will have her continue on probiotic for now. Orders: Orders Calprotectin, Stool Today R19.7 - Diarrhea, unspecified CRP Today R19.7 - Diarrhea, unspecified Celiac Disease Profile Today R19.7 - Diarrhea, unspecified JOSE + Protein Elect, Serum Today R19.7 - Diarrhea, unspecified ANCA Today R19.7 - Diarrhea, unspecified Erythrocyte Sed Rate Today R19.7 - Diarrhea, unspecified Immunoglobulins G/A/M/E Today R19.7 - Diarrhea, unspecified IBD Expanded Profile Today R19.7 - Diarrhea, unspecified Vitamin B12 Today R19.7 - Diarrhea, unspecified Folates, (Folic Acid) Today R19.7 - Diarrhea, unspecified Allergen, Food Profile 14 Today R19.7 - Diarrhea, unspecified Lipase Today R19.7 - Diarrhea, unspecified Amylase Today R19.7 - Diarrhea, unspecified Anti-Parietal Cell AB, QN Today R19.7 - Diarrhea, unspecified Gastrin, Serum Today R19.7 - Diarrhea, unspecified DARIO Comprehensive Panel Today R19.7 - Diarrhea, unspecified Intrinsic Factor Ab Today K58.9 - Irritable bowel syndrome, unspecified
--- NOTE | 2024-09-17 15:24 | PCM.POST.ANE ---
Anesthesia: Postop Eval I Current Vital Signs Temperature: 98.3 F Pulse Rate: 94 Blood Pressure: 109/69 Respiratory Rate: 20 Pulse Ox: 98 Oxygen Delivery Method: Room Air Assessment Airway patent: Yes Spontaneous unlabored respirations: Yes Mental status: Awake nausea: No Vomiting: No Anesthesia Complication: No Fluid Hydration Crystalloid volume administer (ml): 10 Total IV fluid infused: 10 Progress Note Anesthesia document: Postop Eval 1 completed: Yes
--- NOTE | 2024-09-17 15:28 | OP.EGD_ITS ---
Patient Name: Carol Alcocer Procedure Date: 09/17/2024 2:33 PM Date of : 1950 Age: 73 Procedure: Upper GI endoscopy Indications: Epigastric abdominal pain Providers: Chucky Woodall DO Referring MD: Alphonse Reyes Medicines: Monitored Anesthesia Care Patient Profile: This is a 73 year old female. Refer to note in patient chart for documentation of history and physical. Patient has symptoms of chronic abdominal cramping, chronic abdominal distention and chronic epigastric abdominal pain. Complications: No immediate complications. Procedure: Pre-Anesthesia Assessment: - Prior to the procedure, a History and Physical was performed, and patient medications and allergies were reviewed. The patient is competent. The risks and benefits of the procedure and the sedation options and risks were discussed with the patient. All questions were answered and informed consent was obtained. Patient identification and proposed procedure were verified by the physician in the pre-procedure area. Mental Status Examination: alert and oriented. Airway Examination: normal oropharyngeal airway and neck mobility. Respiratory Examination: clear to auscultation. CV Examination: normal. Prophylactic Antibiotics: The patient does not require prophylactic antibiotics. Prior Anticoagulants: The patient has taken no anticoagulant or antiplatelet agents except for NSAID medication. ASA Grade Assessment: II - A patient with mild systemic disease. After reviewing the risks and benefits, the patient was deemed in satisfactory condition to undergo the procedure. The anesthesia plan was to use monitored anesthesia care (MAC). Immediately prior to administration of medications, the patient was re-assessed for adequacy to receive sedatives. The heart rate, respiratory rate, oxygen saturations, blood pressure, adequacy of pulmonary ventilation, and response to care were monitored throughout the procedure. The physical status of the patient was re-assessed after the procedure. After obtaining informed consent, the endoscope was passed under direct vision. Throughout the procedure, the patient's blood pressure, pulse, and oxygen saturations were monitored continuously. The Colonoscope was introduced through the mouth, and advanced to the second part of duodenum. The upper GI endoscopy was accomplished without difficulty. The patient tolerated the procedure well. Scope In: 3:04:21 PM Scope Out: 3:08:02 PM Total Procedure Duration Time 0 hours 3 minutes 41 seconds Findings: The examined esophagus was normal. Patchy moderate inflammation characterized by erosions, erythema and friability was found in the gastric body. Biopsies were taken with a cold forceps for histology. Verification of patient identification for the specimen was done. Estimated blood loss was minimal. The second portion of the duodenum was normal. Impression: - Normal esophagus. - Bile gastritis. Biopsied. - Normal second portion of the duodenum. Recommendation: - Await pathology results. - Continue present medications. Procedure Code(s): --- Professional --- 09238, Esophagogastroduodenoscopy, flexible, transoral; with biopsy, single or multiple CPT copyright 2021 [employer]. All rights reserved. The codes documented in this report are preliminary and upon grapple skidder operator review may be revised to meet current compliance requirements. Chucky Woodall DO 09/17/2024 3:28:26 PM This report has been signed electronically. Number of Addenda: 0 Note Initiated On: 09/17/2024 2:33 PM
--- NOTE | 2024-09-17 15:29 | OP.CCLET_ITS ---
09/17/2024 Alphonse Reyes [address] [place] [address] Re : Upper GI endoscopy procedure for Carol Alcocer Dear Dr. Reyes This procedure was performed on Tuesday, September 17, 2024. My impressions and recommendations are as follows: Impressions : - Normal esophagus. - Bile gastritis. Biopsied. - Normal second portion of the duodenum. Recommendations : - Await pathology results. - Continue present medications. My findings are described in the full procedure note, which is enclosed. If I can be of further assistance, please feel free to contact me at . Sincerely, Chucky Woodall, 09/17/2024 3:28:26 PM This report has been signed electronically.
--- NOTE | 2024-09-17 15:30 | OP.COLON_ITS ---
Patient Name: Carol Alcocer Procedure Date: 09/17/2024 3:09 PM Date of : 1950 Age: 73 Procedure: Colonoscopy Indications: Generalized abdominal pain, Chronic diarrhea Providers: Chucky Woodall DO Referring MD: Alphonse Reyes Medicines: Monitored Anesthesia Care Patient Profile: This is a 73 year old female. Refer to note in patient chart for documentation of history and physical. Patient has symptoms of chronic abdominal cramping, chronic abdominal distention and chronic epigastric abdominal pain. Last Colonoscopy: date unknown. Unable to locate last colonoscopy report. Complications: No immediate complications. Procedure: Pre-Anesthesia Assessment: - Prior to the procedure, a History and Physical was performed, and patient medications and allergies were reviewed. The patient is competent. The risks and benefits of the procedure and the sedation options and risks were discussed with the patient. All questions were answered and informed consent was obtained. Patient identification and proposed procedure were verified by the physician in the pre-procedure area. Mental Status Examination: alert and oriented. Airway Examination: normal oropharyngeal airway and neck mobility. Respiratory Examination: clear to auscultation. CV Examination: normal. Prophylactic Antibiotics: The patient does not require prophylactic antibiotics. Prior Anticoagulants: The patient has taken no anticoagulant or antiplatelet agents except for NSAID medication. ASA Grade Assessment: II - A patient with mild systemic disease. After reviewing the risks and benefits, the patient was deemed in satisfactory condition to undergo the procedure. The anesthesia plan was to use monitored anesthesia care (MAC). Immediately prior to administration of medications, the patient was re-assessed for adequacy to receive sedatives. The heart rate, respiratory rate, oxygen saturations, blood pressure, adequacy of pulmonary ventilation, and response to care were monitored throughout the procedure. The physical status of the patient was re-assessed after the procedure. After I obtained informed consent, the scope was passed under direct vision. Throughout the procedure, the patient's blood pressure, pulse, and oxygen saturations were monitored continuously. The Colonoscope was introduced through the anus and advanced to the ileocecal valve. The colonoscopy was performed without difficulty. The patient tolerated the procedure well. The quality of the bowel preparation was poor. The ileocecal valve was photographed. Scope In: 3:11:02 PM Scope Withdrawal Time 0 hours 5 minutes 13 seconds Scope Out: 3:22:38 PM Total Procedure Duration Time 0 hours 11 minutes 36 seconds Findings: The perianal and digital rectal examinations were normal. Multiple small-mouthed diverticula were found in the recto-sigmoid colon, sigmoid colon and descending colon. Stool was found in the entire colon. Impression: - Preparation of the colon was poor. - Diverticulosis in the recto-sigmoid colon, in the sigmoid colon and in the descending colon. - Stool in the entire examined colon. - No specimens collected. Recommendation: - Discharge patient to home. - Resume previous diet. - Continue present medications. - Repeat colonoscopy because the bowel preparation was suboptimal. Procedure Code(s): --- Professional --- 23565, Colonoscopy, flexible; diagnostic, including collection of specimen(s) by brushing or washing, when performed (separate procedure) CPT copyright 2021 [employer]. All rights reserved. The codes documented in this report are preliminary and upon blocker and polisher gold wheel review may be revised to meet current compliance requirements. Chucky Woodall DO 09/17/2024 3:30:31 PM This report has been signed electronically. Number of Addenda: 0 Note Initiated On: 09/17/2024 3:09 PM
--- NOTE | 2024-09-17 15:31 | OP.CCLET_ITS ---
09/17/2024 Alphonse Reyes [address] [place] [address] Re : Colonoscopy procedure for Carol Alcocer Dear Dr. Reyes This procedure was performed on Tuesday, September 17, 2024. My impressions and recommendations are as follows: Impressions : - Preparation of the colon was poor. - Diverticulosis in the recto-sigmoid colon, in the sigmoid colon and in the descending colon. - Stool in the entire examined colon. - No specimens collected. Recommendations : - Discharge patient to home. - Resume previous diet. - Continue present medications. - Repeat colonoscopy because the bowel preparation was suboptimal. My findings are described in the full procedure note, which is enclosed. If I can be of further assistance, please feel free to contact me at . Sincerely, Chucky Woodall, 09/17/2024 3:30:31 PM This report has been signed electronically.
--- NOTE | 2024-09-17 16:24 | POSTOPAN2_ITS ---
Anesthesia Postop Eval I Sum Postop Eval Completion status Anesthesia document: Postop Eval 1 completed: Yes Anesthesia Postop Eval I Summary Anesthesia Postop Eval I Summary: Anesthesia Postop Eval I: Assessment Summary Airway patent Yes 09/17/24 15:31 FINANCIAL [email or web address] [email or web address] Spontaneous unlabored Yes 09/17/24 15:31 FINANCIAL SALES [email or web address] respirations Mental status Awake 09/17/24 15:31 FINANCIAL [email or web address] nausea No 09/17/24 15:31 FINANCIAL SALES [email or web address] Vomiting No 09/17/24 15:31 FINANCIAL SALES [email or web address] Anesthesia Postop Eval I: Fluid Summary Crystalloid volume administer 10 09/17/24 15:31 FINANCIAL SALES [email or web address] (ml) Colloids volume administered ( ml) Blood Product volume administered (ml) Total IV fluid infused 10 09/17/24 15:31 FINANCIAL SALES [email or web address] Anesthesia Postop Eval I: Summary Notes Anesthesia Complication No 09/17/24 15:31 FINANCIAL [email or web address] Anesthesia Complication Comment: Post-operative progress note Anesthesia: Postop Eval II Evaluation Mental status: Awake Pain Level: 0 nausea: No Vomiting: No Complications Anesthesia Complication: No
--- NOTE | 2024-09-17 16:24 | PCM.POSTANE2 ---
Anesthesia Postop Eval I Sum Postop Eval Completion status Anesthesia document: Postop Eval 1 completed: Yes Anesthesia Postop Eval I Summary Anesthesia Postop Eval I Summary: Anesthesia Postop Eval I: Assessment Summary Airway patent Yes 09/17/24 15:31 [email or web address] Spontaneous unlabored Yes 09/17/24 15:31 [email or web address] respirations Mental status Awake 09/17/24 15:31 [email or web address] nausea No 09/17/24 15:31 [email or web address] Vomiting No 09/17/24 15:31 [email or web address] Anesthesia Postop Eval I: Fluid Summary Crystalloid volume administer 10 09/17/24 15:31 [email or web address] (ml) Colloids volume administered ( ml) Blood Product volume administered (ml) Total IV fluid infused 10 09/17/24 15:31 [email or web address] Anesthesia Postop Eval I: Summary Notes Anesthesia Complication No 09/17/24 15:31 [email or web address] Anesthesia Complication Comment: Post-operative progress note Anesthesia: Postop Eval II Evaluation Mental status: Awake Pain Level: 0 nausea: No Vomiting: No Complications Anesthesia Complication: No
== END 2024-09-17 16:29 | disposition home or self-care (01) ==
LOC: EN 12:27 → AC 12:28
PROVIDERS: PCP Family Medicine; Referring Provider Family Medicine; Visit Provider Internal Medicine Gastroenterology
PROC: 0DJD8ZZ Inspection of Lower Intestinal Tract, Via Natural or Artificial Opening Endoscopic (ICD-10-PCS; CPT 45378; principal; 2024-09-17 13:25)
DX: K29.50 Unspecified chronic gastritis without bleeding (principal); K21.9 Gastro-esophageal reflux disease without esophagitis; E78.00 Pure hypercholesterolemia, unspecified; K58.9 Irritable bowel syndrome, unspecified; R10.84 Generalized abdominal pain; K57.30 Diverticulosis of large intestine without perforation or abscess without bleeding; Z90.49 Acquired absence of other specified parts of digestive tract; F17.210 Nicotine dependence, cigarettes, uncomplicated; K22.10 Ulcer of esophagus without bleeding
CPT/HCPCS: 43239; 45378; 88305; 88342; A4216; J2405

== ENCOUNTER 2025-05-09 12:42 | Emergency (ER) | payer MEDICARE, SELFPAY ==
[2025-05-09 12:43] VITALS: BP 123/87; PULSE 102; RESP 18; TEMP 36.9; O2SAT 99; BMI 21.2
[2025-05-09 14:43] VITALS: BP 120/86; PULSE 68; RESP 18; O2SAT 100
[2025-05-09 15:03] LABS: Hematocrit 39.0 % (37-47); Hemoglobin 13.3 g/dL (12.0-15.0); Immature Granulocytes Count 0.030 X10^3/uL (0.0-0.0); Mean Corp Hgb Conc 34.1 g/dL (32-36); Mean Corpuscular Volume 95.8 fL (81-99); Mean Platelet Vol. 8.6 fl (6.2-12.0); NRBC Flagged by Analyzer 0 % (0-5); Platelet Count 329 K/mm3 (150-450); RBC Distribution Width CV 13.0 % (11.6-14.6); RBC Distribution Width SD 45.8 fl (35.1-43.9); Red Blood Count 4.07 M/mm3 (4.2-5.4); White Blood Count 10.3 K/mm3 (4.4-11.0)
[2025-05-09 15:05] LABS: Mucous, Urine 0 SEEN /hpf (<or=2+); Red Blood Cells-Urine 0 SEEN /hpf (0-5); Squamous Epithelial Cells - UA 0 SEEN /hpf (5-10)
[2025-05-09] MEDS: Famotidine 200 MG/20 ML MDV 20 MG in 0.9% Normal Saline (Pres. free 8 ML 300 MG IV (15:18)
[2025-05-09 15:19] LABS: Color, Urine Yellow (Yellow); Glucose, Dipstick Normal (Normal); Ketone-Dipstick Negative (Negative); Leukocyte Esterase-Dipstick Negative /ul (Negative); Nitrite-Dipstick Negative (Negative); Occult Blood-Urine Negative /ul (Negative); Protein-Dipstick Negative (Negative); Specific Gravity, Urine 1.010 (1.002-1.030); Urine Bilirubin Dipstick Negative (Negative)
[2025-05-09] MEDS: Lidocaine 2% Viscous15 ML UDC 15 ML PO (15:24)
--- NOTE | 2025-05-09 15:28 | EX.ED.DYSGE1 ---
HPI History of Present Illness Chief Complaint: Abd Pain Narrative Narrative: Chief complaint and HPI: 74-year-old female with past medical history of IBS and GERD presents for evaluation of acid reflux. Patient states that she frequently suffers from constipation in which she is on home bowel regimen. She states she recently got the COVID-19 vaccine in which she developed worsening acid reflux and bloating. She called Dr. Woodall's office who told her to come to the emergency department. She denies any fever, chills, shortness of breath, chest pain, dysuria. States she has had been having some intermittent abdominal cramping. She has been taking her home Pepcid and Protonix with minimal relief. On chart review, patient last saw GI on 12/19/2024. She had an EGD and colonoscopy on that showed bile gastritis and diverticulosis. Review of systems: See HPI Medications: As listed on the chart Allergies: As listed on the chart PFSH: Per chart Vital signs: As listed on the chart. Reviewed. Physical exam: Gen: A&O x3, NAD Head: Normocephalic, atraumatic Eyes: No sclera icterus, conjunctiva clear ENT: Moist mucous membranes CV: RRR, no murmurs Resp: Lungs CTA BL, no w/r/c GI: Abd soft, non-distended, non-tender, no r/r/g Musc: Moves all extremities Skin: Warm, dry Psych: Cooperative, appropriate mood and affect [facility] Medical History Hypothyroid Thyroid disease Arthritis High cholesterol History of IBS Smoker History of stress test IBS (irritable bowel syndrome) GERD (gastroesophageal reflux disease) Home Medications ?Medication ?Instructions ?Recorded ?Last Taken ?Type levothyroxine 112 mcg capsule 112 mcg PO QDAY 06/27/24 Unknown History pravastatin 40 mg tablet 40 mg PO QDAY 06/27/24 Unknown History UltraFlora IB Probiotic PO QDAY 10/24/24 Unknown History colestipol 1 gram tablet 1 g PO BID #60 tabs 11/14/24 Unknown Rx famotidine 40 mg tablet 40 mg PO QHS #90 tabs 11/14/24 Unknown Rx pantoprazole 40 mg tablet,delayed 40 mg PO BID #180 tabs 11/14/24 Unknown Rx release sucralfate 1 gram tablet (Carafate) 1 g PO TID 7 days #21 tabs 05/09/25 Unknown Rx Allergy/AdvReac Type Severity Reaction Status Date / Time citalopram (From Celexa) Allergy Unknown PT UNSURE Verified 05/09/25 12:45 OF REACTION clarithromycin (From Biaxin) Allergy Unknown PT UNABLE Verified 05/09/25 12:45 TO RESPOND-NEEDS F/U sulfamethoxazole (From Allergy Unknown PT UNSURE Verified 05/09/25 12:45 Bactrim) OF REACTION trimethoprim (From Bactrim) Allergy Unknown PT UNSURE Verified 05/09/25 12:45 OF REACTION atorvastatin (From Lipitor) Allergy PT UNSURE Verified 05/09/25 12:45 OF REACTION cefixime (From Suprax) Allergy PT UNABLE Verified 05/09/25 12:45 TO RESPOND-NEEDS F/U chlorzoxazone (From Parafon Allergy PT UNSURE Verified 05/09/25 12:45 Forte) OF REACTION ciprofloxacin (From Cipro) Allergy PT UNABLE Verified 05/09/25 12:45 TO RESPOND-NEEDS F/U diclofenac (From Voltaren) Allergy PT UNABLE Verified 05/09/25 12:45 TO RESPOND-NEEDS F/U flavoxate (From Urispas) Allergy PT UNABLE Verified 05/09/25 12:45 TO RESPOND-NEEDS F/U guaifenesin (From Entex [place]) Allergy PT UNABLE Verified 05/09/25 12:45 TO RESPOND-NEEDS F/U hyoscyamine (From Levsinex) Allergy PT UNSURE Verified 05/09/25 12:45 OF REACTION moxifloxacin (From Avelox) Allergy PT UNSURE Verified 05/09/25 12:45 OF REACTION paroxetine (From Paxil) Allergy PT UNSURE Verified 05/09/25 12:45 OF REACTION phenylephrine (From Entex LA) Allergy PT UNABLE Verified 05/09/25 12:45 TO RESPOND-NEEDS F/U phenylpropanolamine (From Allergy PT UNABLE Verified 05/09/25 12:45 Entex LA) TO RESPOND-NEEDS F/U Sulfa (Sulfonamide Allergy PT UNABLE Verified 05/09/25 12:45 Antibiotics) TO RESPOND-NEEDS F/U Surgical History History of colonoscopy History of esophagogastroduodenoscopy (EGD) Status post panniculectomy (~1980) History of cholecystectomy History of partial hysterectomy Social History Smoking Status: Current every day smoker tobacco type: cigarettes EXAM Physical Exam Const Vital Signs: 05/09/25 12:43 05/09/25 14:43 05/09/25 16:00 Temperature 98.4 F Temperature Source Oral Pulse Rate 102 H 68 84 Respiratory Rate 18 18 16 Blood Pressure 123/87 H 120/86 H 131/62 H Blood Pressure Mean 99 97 85 Pulse Ox 99 100 99 Oxygen Delivery Method Room Air Room Air 05/09/25 16:38 Temperature 97.8 F Temperature Source Pulse Rate 85 Respiratory Rate 16 Blood Pressure 119/73 Blood Pressure Mean 88 Pulse Ox 98 Oxygen Delivery Method MDM MDM MDM Narrative Medical decision making narrative: 74-year-old female with past medical history of IBS and GERD presents for evaluation of acid reflux. She states she recently got the COVID-19 vaccine in which she developed worsening acid reflux and bloating. She called Dr. Woodall's office who told her to come to the emergency department. History taken by patient as well as medical record. See HPI. Differential diagnosis includes but is not limited to GERD, gastritis, IBS, suspect less likely cholecystitis, pancreatitis, UTI. Pepcid and GI cocktail ordered for symptoms. Laboratory workup ordered. I do not think any CT abdomen pelvis is needed at this time given abdominal exam is benign and patient currently not endorsing any abdominal pain. CBC without leukocytosis or anemia. Platelets unremarkable. CMP unremarkable without significant electrolyte abnormality or KTAI. No hyperbilirubinemia or transaminitis. Troponin unremarkable. Lipase unremarkable. UA negative for UTI. On reevaluation, patient's symptoms have improved with GI cocktail and Pepcid. Given patient follows with Dr. Woodall, ID consulted and patient was discussed. He suspects gastritis flare from bile. Recommended continuing home regiment and doing Carafate 3 times daily x 1 week. Follow-up in his office. She was updated of all results of her evaluation and the plan. Patient was discharged home. Impression: 1. Gastritis secondary to bile acid reflux 2. History of IBS Lab Data Labs: Laboratory Results - last 24 hr 05/09/25 05/09/25 14:26 14:55 WBC 10.3 RBC 4.07 L Hgb 13.3 Hct 39.0 MCV 95.8 MCH 32.7 H MCHC 34.1 RDW Std Deviation 45.8 H RDW Coeff of Zana 13.0 Plt Count 329 MPV 8.6 Immature Gran % (Auto) 0.300 Neut % (Auto) 42.0 L Lymph % (Auto) 46.1 H [place] % (Auto) 8.5 Eos % (Auto) 2.3 Baso % (Auto) 0.8 Absolute Neuts (auto) 4.3 Absolute Lymphs (auto) 4.75 H Nucleated RBC % 0 Sodium 141 Potassium 3.6 Chloride 105 Carbon Dioxide 25.9 Anion Gap 11 BUN 7 Creatinine 0.67 L Estim Creat Clear Calc 49.49 L Est GFR (MDRD) Non-Af 91 BUN/Creatinine Ratio 10.7 Glucose 108 H Calcium 9.5 Total Bilirubin 0.30 AST 22 ALT 16 Alkaline Phosphatase 64 Troponin T High Sens 12 Total Protein 6.6 Albumin 4.3 Globulin 2.3 Albumin/Globulin Ratio 1.9 Lipase 38 Urine Color Yellow Urine Clarity Clear Urine pH 6.5 Ur Specific [place] 1.010 Urine Protein Negative Urine Glucose (UA) Normal Urine Ketones Negative Urine Occult Blood Negative Urine Nitrite Negative Urine Bilirubin Negative Urine Urobilinogen Normal Ur Leukocyte Esterase Negative Urine RBC 0 SEEN Urine WBC 0 SEEN Ur Squamous Epith Cells 0 SEEN Urine Bacteria 0 SEEN Urine Mucus 0 SEEN Discharge Plan Triage Chief Complaint: Abd Pain ED Provider: Garry Martinez Dx/Rx/DC Orders Clinical Impression: Gastritis, bile acid reflux Instructions: ED GERD (Adult) Prescriptions: New sucralfate [Carafate] 1 gram tablet 1 g PO TID 7 Days Qty: 21 0RF No Action levothyroxine 112 mcg capsule 112 mcg PO QDAY pravastatin 40 mg tablet 40 mg PO QDAY UltraFlora IB Probiotic PO QDAY colestipol 1 gram tablet 1 g PO BID Qty: 60 2RF famotidine 40 mg tablet 40 mg PO QHS Qty: 90 2RF pantoprazole 40 mg tablet,delayed release (DR/EC) 40 mg PO BID Qty: 180 2RF Rx Instructions: take 30 minutes before breakfast and supper Primary Care Provider: Alphonse Reyes Referrals: Alphonse Reyes MD [Primary Care Provider, Family Practice] - 3-5 Days Friend,DO Chucky [Med Staff - Active Staff, Gastroenterology] - 3-5 Days Activity Restrictions/Additional Instructions: Follow-up with primary care physician and GI physician. Keep your appointment next week. Print Language: [place] Disposition Disposition: Home, Self Care
[2025-05-09 16:00] VITALS: BP 131/62; PULSE 84; RESP 16; O2SAT 99
[2025-05-09 16:04] LABS: AST(SGOT) 22 U/L (<=31); Alanine Aminotransfer ALT/SGPT 16 U/L (<=34); Albumin, Serum 4.3 g/dL (3.4-4.8); Alkaline Phosphatase 64 U/L (35-104); Anion Gap 11 (5-15); BUN 7 mg/dL (4-19); BUN/Creat Ratio 10.7 RATIO (10-20); Calcium,Total 9.5 mg/dL (7.6-11.0); Carbon Dioxide 25.9 mmol/L (21.0-32.0); Chloride 105 mmol/L (98-108); Estimated Creatinine Clearance 49.49 ml/min (50-250); Globulin 2.3 g/dL (2.2-4.2); Glucose 108 mg/dL (70-99); Lipase 38 U/L (13-75); Potassium 3.6 mmol/L (3.3-5.1)
[2025-05-09 16:19] LABS: Troponin T High Sensitivity 12 ng/L (<=14)
[2025-05-09 16:38] VITALS: BP 119/73; PULSE 85; RESP 16; TEMP 36.6; O2SAT 98
== END 2025-05-09 16:52 | disposition home or self-care (01) ==
PROVIDERS: Emergency Provider Surgery; PCP Family Medicine; Visit Provider Surgery
DX: K21.9 Gastro-esophageal reflux disease without esophagitis (principal); K29.70 Gastritis, unspecified, without bleeding; E78.00 Pure hypercholesterolemia, unspecified; Z87.19 Personal history of other diseases of the digestive system; F17.210 Nicotine dependence, cigarettes, uncomplicated
CPT/HCPCS: 80053; 81001; 83690; 84484; 85025; 96374; 99282

== ENCOUNTER 2025-06-23 05:13 | Day surgery (SDC) | payer MEDICARE, SELFPAY ==
[2025-06-23] VITALS (7 sets, daily range): BP systolic 113–139; BP diastolic 62–96; PULSE 90–99; RESP 16; TEMP 36.2–37.1; O2SAT 97–100; BMI 20.2
--- OUTSIDE RECORDS SUMMARY | 2025-06-23 05:17 | XMS RPT_ITS | CCD ---
Author Organization [facility] Care Team Providers Care Chief Cook Name Role Phone Pepe Reyes MD Primary Care Provider Pepe Reyes MD Primary Care Provider Lizzette CARDIOPULMONARY SPECIALIST.Elise NASSAR Unavailable Ronald CARDIOPULMONARY SPECIALIST.Rob NASSAR Unavailable Dr. Pepe Reyes MD Primary Care Provider Dr. Yas Winchester DO Attending Provider Dr. Yas Winchester DO Emergency Provider Dr. Pepe Reyes MD Referring Provider [phone] Dr. Chucky Woodall DO Attending Provider Talisha WATSON, Dr. Locke Referring Provider Talisha WATSON, Dr. Locke Other Provider Lizzette CARDIOPULMONARY SPECIALIST.Elise NASSAR Unavailable Unavail able Tannroman CARDIOPULMONARY SPECIALIST.Elise NASSAR Unavailable Dr. Pepe Reyes MD Primary Care Provider Dr. Chucky Woodall DO Attending Provider Talisha WATSON, Dr. Locke Referring Provider Dr. Prem Maldonado MD Attending Provider Dr. Prem Maldonado MD Referring Provider Dr. Pepe Reyes MD Referring Provider Janay Gil Attending Provider [phone] Pepe Reyes MD Primary Care Provider [phone] Friend DO, Dr. Locke Attending Provider Friend, Chucky Referring Unavailable Friend, Chucky Attending Unavailable Elderbrock, Pepe Primary Care Unavailable Yas Winchester Attending Unavailable Elderbrock, Pepe Primary Care Unavailable Garry Martinez Attending Unavailabl e Elderbrock, Pepe Primary Care Unavailable Friend, Chucky Attending Unavailable Elderbrock, Pepe Referring Unavailable Elderbrock, Pepe Primary Care Unavailable Friend, Chucky Attending Unavailable Elderbrock, Pepe Primary Care Unavailable Elderbrock, Pepe Primary Care Unavailable Elderbrock, Pepe Referring Unavailable Janay Lutz Attending Unavailable Friend, Chucky Attending Unavailable Elderbrock, Pepe Primary Care Unavailable Elderbrock, Pepe Referring Unavailable Friend, Chucky Attending Unavailable Elderbrock, Pepe Referring Unavailable Elderbrock, Pepe Primary Care Unavailable Janay Lutz Attending Unavailable Elderbrock, Pepe Primary Care Unavailable Elderbrock, Pepe Referring Unavailable SailPrem schneider Referring Unavailable SailorsPrem Attending Unavailable Elderbrock, Pepe Primary Care Unavailable Friend, Chucky Attending Unavailable Friend, Chucky Consulting Unavailable Elderbrock, Pepe Primary Care Unavailable Elderbrock, Pepe Referring Unavailable Friend, Chucky Referring Unavailable Friend, Chucky Attending Unavailable Elderbrock, Pepe Primary Care Unavailable Friend, Chucky Referring Unavailable Friend, Chucky Attending Unavailable Elderjaydack, Pepe Primary Care Unavailable KEV CAMPOS Primary Care Unavailab KIELY Dudley Referring Unavailable KEV CAMPOS Primary Care Unavailab KEV Serrano Attending Unavailab le PEPE REYES Primary Care Unavailable ELDERPEPE CROSS Referring Unavailable ELDERBROCKPEPE Primary Care Unavailable VETOVITZ, BELINDA Referring Unavailable VETOVITZ, BELINDA Attending Unavailable ELDERJAYDACKPEPE Primary Care Unavailable ELDERJAYDACKPEPE Attending Unavailable ELDERBROCKPEPE Primary Care Unavailable VETOVITZ, BELINDA Attending Unavailable ELDERJAYDACKPEPE Primary Care Unavailable VETOVITZ, BELINDA Referring Unavailable VETOKARSTENTZ, BELINDA Attending Unavailable ELDERPEPE CROSS Primary Care Unavailable SELF Referring Unavailable PEPE REYES Attending Unavailable KEV CAMPOS Primary Care Unavailab KEV Serrano Referring Unavailab le PEPE REYES Primary Care Unavailable ELISE CROCKER Attending Unavailabl PEPE Boyd Primary Care Unavailable PEPE REYES Attending Unavailable PEPE REYES Primary Care Unavailable TANGELA HINOJOSA Attending Unavailable PEPE REYES Primary Care Unavailable BELINDA JASON Attending Unavailable PEPE REYES Primary Care Unavailable EREN, BELINDA Referring Unavailable ROCHELLE BRICE Attending Unavailable PEPE REYES Primary Care Unavailable PEPE REYES Primary Care Unavailable PEPE REYES Referring Unavailable PEPE REYES Primary Care Unavailable PEPE REYES Attending Unavailable JINA RUIZ Attending Unavailable PEPE REYES Primary Care Unavailable KEV CAMPOS Primary Care Unavailab KILEY Dudley Attending Unavailable Allergies Allergy Classification Reported Allergen(s) Allergy Type Date of Onset Reaction(s) Facility (20 sources) atorvastatin; Translations: [ATORVASTATIN CALCIUM] Drug Allergy 05-16-20 05 [facility] Work Phone: (20 sources) Cefaclor; Translations: [CEFACLOR] Drug Allergy 04-27-20 05 [facility] Work Phone: (20 sources) Cefixime; Translations: [CEFIXIME] Drug Allergy 04-27-20 05 PT UNABLE TO RESPOND-NEEDS F/U [facility] Work Phone: (20 sources) Chlorzoxazone; Translations: [CHLORZOXAZONE] Drug Allergy 05-16-20 05 PT UNSURE OF REACTION [facility] Work Phone: (20 sources) Ciprofloxacin; Translations: [CIPROFLOXACIN] Drug Allergy 04-27-20 05 PT UNABLE TO RESPOND-NEEDS F/U [facility] Work Phone: (20 sources) Citalopram; Translations: [CITALOPRAM HYDROBROMIDE] Drug Allergy 05-16-20 05 Unknown [facility] Work Phone: (20 sources) Clarithromycin; Translations: [CLARITHROMYCIN] Drug Allergy 04-27-20 05 PT UNABLE TO RESPOND-NEEDS F/U [facility] Work Phone: (20 sources) Dextromethorphan / guaiFENesin; Translations: [DEXTROMETHORPHAN-GUAI FENESIN] Drug Allergy 04-27-20 05 [facility] Work Phone: (20 sources) Diclofenac; Translations: [DICLOFENAC SODIUM] Drug Allergy 05-16-20 05 [facility] Work Phone: (20 sources) Erythromycin; Translations: [ERYTHROMYCIN] Drug Allergy 04-27-20 05 [facility] Work Phone: (20 sources) flavoxATE; Translations: [FLAVOXATE HCL] Drug Allergy 05-16-20 05 [facility] Work Phone: (20 sources) guaiFENesin / Phenylephrine; Translations: [PHENYLEPHRINE-GUAIFEN ESIN] Drug Allergy 05-16-20 05 [facility] Work Phone: (20 sources) Hyoscyamine; Translations: [HYOSCYAMINE SULFATE] Drug Allergy 05-16-20 05 [facility] Work Phone: (20 sources) moxifloxacin; Translations: [MOXIFLOXACIN HCL] Drug Allergy 03-05-20 10 Intolerance [facility] Work Phone: (20 sources) PARoxetine; Translations: [PAROXETINE HCL] Drug Allergy 05-16-20 05 [facility] Work Phone: (20 sources) Sulfamethoxazole; Translations: [SULFAMETHOXAZOLE] Drug Allergy 12-21-19 13 Unknown [facility] Work Phone: (20 sources) Sulfonamides (Antibiotic); Translations: [SULFA (SULFONAMIDE ANTIBIOTICS)] Drug Allergy 12-18-19 13 Other: See Comments [facility] (20 sources) ANAPRIN [Other] Propensity to adverse reactions 05-16-20 05 [facility] Work Phone: (20 sources) CHLORZINEX [Other] Propensity to adverse reactions 04-27-20 05 [facility] Work Phone: (20 sources) FINTEX [Other] Propensity to adverse reactions 04-27-20 05 [facility] Work Phone: (20 sources) ORNADE [Other] Propensity to adverse reactions 04-27-20 05 [facility] Work Phone: (20 sources) PANELOR [Other] Propensity to adverse reactions 04-27-20 05 [facility] Work Phone: (20 sources) SPOROSTAC [Other] Propensity to adverse reactions 04-27-20 05 [facility] Work Phone: (3 sources) atorvastatin Drug Allergy 09-18-19 25 PT UNSURE OF REACTION [facility] (3 sources) Citalopram Drug Allergy 09-18-19 25 PT UNSURE OF REACTION [facility] (3 sources) Diclofenac Drug Allergy 09-18-19 25 PT UNABLE TO RESPOND-NEEDS F/U [facility] (3 sources) flavoxATE Drug Allergy 09-18-19 25 PT UNABLE TO RESPOND-NEEDS F/U [facility] (3 sources) guaiFENesin Drug Allergy 09-18-19 25 PT UNABLE TO RESPOND-NEEDS F/U [facility] (3 sources) Hyoscyamine Drug Allergy 09-18-19 25 PT UNSURE OF REACTION [facility] (3 sources) moxifloxacin Drug Allergy 09-18-19 25 PT UNSURE OF REACTION [facility] (3 sources) PARoxetine Drug Allergy 09-18-19 25 PT UNSURE OF REACTION [facility] (3 sources) Phenylephrine Drug Allergy 09-18-19 25 PT UNABLE TO RESPOND-NEEDS F/U [facility] (3 sources) Phenylpropanolamine Drug Allergy 09-18-19 25 PT UNABLE TO RESPOND-NEEDS F/U [facility] (3 sources) Sulfonamides (Antibiotic) Allergy to substance 09-18-19 25 PT UNABLE TO RESPOND-NEEDS F/U [facility] (3 sources) Trimethoprim Drug Allergy 09-18-19 25 PT UNSURE OF REACTION [facility] (1 source) atorvastatin Drug Allergy 05-09-20 25 [facility] (1 source) Cefixime Drug Allergy 05-09-20 25 [facility] (1 source) Chlorzoxazone Drug Allergy 05-09-20 25 [facility] (1 source) Ciprofloxacin Drug Allergy 05-09-20 25 [facility] (1 source) Citalopram Drug Allergy 05-09-20 [facility] (1 source) Clarithromycin Drug Allergy 05-09-20 [facility] (1 source) Diclofenac Drug Allergy 05-09-20 [facility] (1 source) flavoxATE Drug Allergy 05-09-20 [facility] (1 source) guaiFENesin Drug Allergy 05-09-20 [facility] (1 source) Hyoscyamine Drug Allergy 05-09-20 [facility] (1 source) moxifloxacin Drug Allergy 05-09-20 [facility] (1 source) PARoxetine Drug Allergy 05-09-20 [facility] (1 source) Phenylephrine Drug Allergy 05-09-20 [facility] (1 source) Phenylpropanolamine Drug Allergy 05-09-20 [facility] (1 source) Sulfamethoxazole Drug Allergy 05-09-20 [facility] (1 source) Sulfonamides (Antibiotic) Drug allergy (disorder) 05-09-20 [facility] (1 source) Trimethoprim Drug Allergy 05-09-20 [facility] Medications Current Medications Medication Drug Class(es) Dates Sig (Normalized) Sig (Original) [id number] 200 actuat albuterol 0.09 mg/actuat metered dose inhaler (20 sources) beta2-Adrenergic Agonist Start: 05-08-2020 End: 03-15-2024 take 2 puff(s) by inhalation every six hours as needed for wheezing albuterol HFA (VENTOLIN HFA) 90 mcg/actuation inhaler Inhale 2 Puffs as instructed every 6 hours as needed for wheezing/shortness of breath. 18 g 1 03/15/2024 Active Comment on above: Inhale 2 Puffs as in structed every 6 hours as needed for Wheezing/Shortness of Breath. amoxicillin 875 mg / clavulanate 125 mg oral tablet (2 sources) Penicillin-class Antibacterial Start: 03-15-2024 End: 03-25-2024 take 1 tablet by mouth twice daily amoxicillin-clavula dominik potassium (AUGMENTIN) 875-125 mg per tablet Indications: Sinobronchitis Take 1 tablet by mouth two times a day for 10 days. 20 tablet 03/15/2024 03/25/2024 Active aspirin 81 mg delayed release oral tablet (20 sources) Platelet Aggregation Inhibitor, Nonsteroidal Anti-inflammatory Drug Start: 12-21-2007 aspirin(ECOTRIN LOW STRENGTH 81 MG TAB) Take one(1) tablet daily. 0 12/21/2007 Active Comment on above: Take one(1) tablet d aily. azithromycin 250 mg oral tablet (1 source) Macrolide Antimicrobial Start: 10-20-2022 End: 10-25-2022 azithromycin (ZITHROMAX Z-SEAN) 250 mg tablet Indications: Acute bronchitis, unspecified organism Take 2 tablets day one, then, 1 tablet daily until gone. 6 tablet 0 10/20/2022 10/25/2022 Active Comment on above: Take 2 tablets day o ne, then, 1 tablet daily until gone. BENEFIBER, WHEAT DEXTRIN, ORAL (20 sources) BENEFIBER, WHEAT DEXTRIN, ORAL Take 2 teaspoonsful by mouth three times a day. Active BENEFIBER, WHEAT DEXTRIN, ORAL Take 2 teaspoonsful by mouth three times a day. 0 Active benzonatate 100 mg oral capsule (2 sources) Non-narcotic Antitussive Start: 10-20-2022 End: 10-30-2022 take 1 capsule by mouth three times daily as needed for cough benzonatate (TESSALON PERLES) 100 mg capsule Indications: Acute bronchitis, unspecified organism Take 1 capsule by mouth three times daily as needed for cough for up to 10 days. 30 capsule 0 10/20/2022 10/30/2022 Active Comment on above: Take 1 capsule by [facility] three times daily as needed for cough for up to 10 days. colestipol hydrochloride 1000 mg oral tablet (20 sources) Bile Acid Sequestrant Start: 11-15-2024 End: 01-30-2025 take 1 tablet by mouth twice daily colestipol (COLESTID) 1 gram tablet Indications: Gastroesophageal reflux disease, unspecified whether esophagitis present Take 1 tablet by mouth two times a day. 180 tablet 3 01/30/2025 Active Start: 11-14-2024 End: 11-14-2024 take 1 tablet by mouth twice daily colestipol (COLESTID) 1 gram tablet Indications: Gastroesophageal reflux disease, unspecified whether esophagitis present Take 1 tablet by mouth two times a day. 11/15/2024 Active Start: 08-03-2021 End: 11-15-2024 Colestipol 1 gram tablet Dis continued 1 g PO daily June 27, 2024 1:00am November 14, 2024 9:14am Comment on above: Take 1 tablet by lynette th once daily. take 1 tablet every day doxycycline hyclate 100 mg oral capsule (19 sources) Tetracycline-cla ss Drug Start: 02-15-2025 End: 02-25-2025 take 1 capsule by mouth twice daily doxycycline hyclate (VIBRAMYCIN) 100 mg capsule Indications: Acute non-recurrent sinusitis, unspecified location , Acute bronchitis, unspecified organism Take 1 capsule by mouth two times a day for 10 days. 20 capsule 02/15/2025 02/25/2025 Active Start: 12-23-2024 End: 12-28-2024 take 1 tablet by mouth twice daily doxycycline monohydrate 100 mg tablet Indications: Insect bite of nose, initial encounter , Cellulitis of skin Take 1 tablet by mouth two times a day for 5 days. 10 tablet 12/23/2024 12/28/2024 Active Start: 05-17-2024 End: 05-27-2024 take 1 tablet by mouth twice daily doxycycline (VIBRA-TABS) 100 mg tablet Indications: Bacterial sinusitis Take 1 tablet by mouth two times a day for 10 days. 20 tablet 05/17/2024 05/27/2024 Active Start: 03-22-2023 End: 03-29-2023 take 1 tablet by mouth twice daily doxycycline (VIBRA-TABS) 100 mg tablet Take 1 tablet by mouth twice daily for 7 days. 14 tablet 0 03/22/2023 03/29/2023 Active Start: 10-31-2022 End: 11-10-2022 take 1 tablet by mouth twice daily doxycycline (VIBRA-TABS) 100 mg tablet Indications: Cough present for greater than 3 weeks , Acute bronchitis, unspecified organism Take 1 tablet by mouth twice daily for 10 days. 20 tablet 10/31/2022 11/10/2022 Start: 09-05-2022 End: 09-10-2022 take 1 tablet by mouth twice daily doxycycline monohydrate 100 mg tablet Indications: Bacterial sinusitis Take 1 tablet by mouth twice daily for 5 days. 10 tablet 0 09/05/2022 09/10/2022 Active Start: 06-21-2022 End: 07-01-2022 take 1 tablet by mouth twice daily doxycycline (VIBRA-TABS) 100 mg tablet Take 1 tablet by mouth twice daily for 10 days. 20 tablet 0 06/21/2022 07/01/2022 Active Start: 10-11-2021 End: 10-21-2021 take 1 tablet by mouth twice daily doxycycline (VIBRA-TABS) 100 mg tablet Indications: Sinobronchitis Take 1 tablet by mouth twice daily for 10 days. 20 tablet 10/11/2021 10/21/2021 Comment on above: Take 1 tablet by lynette twice daily for 10 days. Take 1 tablet by lynette twice daily for 5 days. Take 1 tablet by lynette twice daily for 7 days. famotidine 20 mg oral tablet (20 sources) Histamine-2 Receptor Antagonist Start: 11-14-2024 End: 11-14-2024 take 1 tablet by mouth at bedtime Famotidine 40 mg tablet Active 40 mg PO AT BEDTIME 90 November 14, 2024 9:32am Start: 07-29-2021 End: 11-15-2024 take 1 tablet by mouth once daily, then take 2 tablets by mouth once daily at bedtime famotidine (PEPCID) 20 mg tablet Indications: Gastroesophageal reflux disease, unspecified whether esophagitis present , Irritable bowel syndrome, unspecified type Take 1 tablet by mouth once daily. Taking 2 tablets by mouth once daily before bedtime. 90 tablet 3 11/15/2024 Active Comment on above: Take 1 tablet by lynette once daily. hydrocortisone 10 mg/ml / neomycin 3.5 mg/ml / polymyxin b [id number] unt/ml otic suspension (2 sources) Aminoglycoside Antibacterial, Polymyxin-class Antibacterial, Corticosteroid Start: End: neomycin-polymyxin- hydrocortisone (CORTISPORIN) 3.5-10,000-1 mg/mL-unit/mL-% otic suspension Indications: Acute otitis externa of right ear, unspecified type Use 3 Drops in both ears four times daily for 10 days. 10 mL 0 08/18/2023 08/28/2023 Active Comment on above: Use 3 Drops in both ears four times daily for 10 days. levothyroxine sodium 0.15 mg oral tablet (20 sources) l-Thyroxine Start: 025 take 1 tablet by mouth once daily for thyroid dysfunction levothyroxine (SYNTHROID) 150 mcg tablet Take 1 tablet by mouth once daily. Take on empty stomach. For thyroid 90 tablet 3 03/18/2025 Active Start: 09-02-2024 End: 03-18-2025 take 1 tablet by mouth once daily for thyroid dysfunction levothyroxine (SYNTHROID) 125 mcg tablet Take 1 tablet by mouth once daily. Take on empty stomach. For thyroid 90 tablet 3 09/02/2024 03/18/2025 Discontinued Start: 06-27-2024 take 1 capsule by mo uth once daily Levothyroxine 112 mcg capsule Active 112 ug PO daily June 27, 2024 1:00am Start: 08-29-2022 End: 09-02-2024 take 1 tablet by mouth once daily for thyroid dysfunction levothyroxine (SYNTHROID) 112 mcg tablet Take 1 tablet by mouth once daily. Take on empty stomach. For thyroid 90 tablet 3 05/13/2024 09/02/2024 Discontinued Start: 08-23-2021 End: 08-29-2022 take 1 tablet by mouth once daily levothyroxine (SYNTHROID) 100 mcg tablet Indications: Acquired hypothyroidism TAKE 1 TABLET BY MOUTH ONCE DAILY ON AN EMPTY STOMACH 90 tablet 3 08/23/2021 07/22/2022 Discontinued Start: 08-18-2020 End: 10-21-2020 take 1 tablet by mouth once daily levothyroxine (SYNTHROID) 100 mcg tablet Indications: Acquired hypothyroidism TAKE 1 TABLET BY MOUTH ONCE DAILY ON AN EMPTY STOMACH 90 tablet 3 08/18/2020 10/21/2020 Discontinued Comment on above: TAKE 1 TABLET BY LYNETTE TH ONCE DAILY ON AN EMPTY STOMACH Take 1 tablet by lynette th once daily. Take on empty stomach. For thyroid ONE DAILY MULTI-VITAMIN TAB (20 sources) Start: 6 ONE DAILY MULTI-VITAMIN TAB Take one(1) tablet daily. 0 11/22/2005 Active Comment on above: Take one(1) tablet d aily. pantoprazole 40 mg delayed release oral tablet (20 sources) Proton Pump Inhibitor Start: take 1 tablet by mouth twice daily before mealtime pantoprazole DR (PROTONIX) 40 mg tablet Take 1 tablet by mouth two times a day. Take on empty stomach, 1/2 hr before meal. 11/15/2024 Active Start: 11-14-2024 End: 11-14-2024 take 1 tablet by mouth twice daily before mealtime pantoprazole DR (PROTONIX) 40 mg tablet Take 1 tablet by mouth two times a day. Take on empty stomach, 1/2 hr before meal. 11/15/2024 Active Start: 08-18-2020 End: 11-15-2024 take 1 tablet by mouth once daily Pantoprazole 40 mg tablet,delayed release (DR/EC) Discontinued 40 mg PO daily September 27, 2024 8:52am November 14, 2024 9:17am Comment on above: Take 1 tablet by lynette th daily before breakfast. Take on empty stomach, 1/2 hr before meal. polyethylene glycol 3350 [id number] mg powder for oral solution (20 sources) Osmotic Laxative Start: 11-09-19 18 polyethylene glycol 3350 (MIRALAX, GLYCOLAX) 17 gram/dose powder Indications: Irritable bowel syndrome with constipation Take 17 g by mouth twice daily. 1154 g 11 11/08/2017 Active Comment on above: Take 17 g by mouth t wice daily. pravastatin sodium 40 mg oral tablet (20 sources) HMG-CoA Reductase Inhibitor Start: 05-07-20 End: 01-28-20 take 1 tablet by mouth once daily pravastatin (PRAVACHOL) 40 mg tablet Indications: Hyperlipidemia, unspecified hyperlipidemia type Take 1 tablet by mouth once daily. 90 tablet 3 01/27/2025 Active Comment on above: Take 1 tablet by lynette th once daily. take 1 tablet every day predniSONE 20 mg oral tablet (20 sources) Start: 02-16-20 End: 02-21-20 take 2 tablets by mouth once daily predniSONE (DELTASONE) 20 mg tablet Indications: Acute non-recurrent sinusitis, unspecified location , Acute bronchitis, unspecified organism Take 2 tablets by mouth once daily for 5 days. 10 tablet 02/15/2025 02/20/2025 Active Start: 05-17-2024 End: 05-26-2024 predniSONE (DELTASONE) 10 mg tablet Indications: Bacterial sinusitis Take 4 tabs daily for 3 days, then 2 tabs daily for 3 days, then 1 tab daily for 3 days with food. 21 tablet 05/17/2024 05/26/2024 Active Start: 03-15-2024 End: 03-24-2024 predniSONE (DELTASONE) 10 mg tablet Indications: Sinobronchitis Take 4 tabs daily for 3 days, then 2 tabs daily for 3 days, then 1 tab daily for 3 days with food. 21 tablet 03/15/2024 03/24/2024 Active Start: 06-22-2023 take 2 tablets by mo uth once daily predniSONE (DELTASONE) 20 mg tablet Indications: Acute non-recurrent sinusitis, unspecified location Take 2 tablets by mouth once daily. 10 tablet 0 06/22/2023 Active Start: 12-02-2022 predniSONE (DE LTASONE) 10 mg tablet Take 4 tabs daily for 3 days, then 2 tabs daily for 3 days, then 1 tab daily for 3 days with food. 21 tablet 0 03/22/2023 Active Start: 10-20-2022 End: 10-25-2022 take 2 tablets by mouth once daily predniSONE (DELTASONE) 20 mg tablet Indications: Acute bronchitis, unspecified organism Take 2 tablets by mouth once daily for 5 days. 10 tablet 0 10/20/2022 10/25/2022 Active Start: 09-05-2022 End: 09-10-2022 take 2 tablets by mouth once daily at mealtime predniSONE (DELTASONE) 20 mg tablet Indications: Bacterial sinusitis Take 2 tablets by mouth once daily for 5 days. Take daily with food. 10 tablet 0 09/05/2022 09/10/2022 Active Start: 10-11-2021 End: 10-16-2021 take 2 tablets by mouth once daily at mealtime predniSONE (DELTASONE) 20 mg tablet Indications: Sinobronchitis Take 2 tablets by mouth once daily for 5 days. Take daily with food. 10 tablet 10/11/2021 10/16/2021 Comment on above: Take 2 tablets by mo uth once daily for 5 days. Take daily with food. Take 2 tablets by mo uth once daily for 5 days. Take 4 tabs daily fo r 3 days, then 2 tabs daily for 3 days, then 1 tab daily for 3 days with food. Take 2 tablets by mo [facility] once daily. tretinoin 0.25 mg/ml topical cream (20 sources) Retinoid Start: 08-18-2020 End: 02-26-2024 tretinoin (RETIN-A) 0.025 % topical cream Indications: Rosacea Apply 1 application to affected area daily at bedtime. 20 g 3 02/26/2024 Active Comment on above: Apply 1 application to affected area daily at bedtime. triamcinolone acetonide 1 mg/ml topical cream (20 sources) Corticosteroid Start: 04-24-2024 End: 05-01-2024 triamcinolone acetonide (KENALOG) 0.1 % cream Apply 1 application to affected area three times a day for 7 days. Apply sparingly to area for rash/itching. 28.5 g 04/24/2024 05/01/2024 Active Start: 10-09-2015 take 2 spray(s) by i idambikation once daily triamcinolone acetonide (NASACORT) 55 mcg nasal inhaler Use 2 Sprays in the nose once daily. 0 10/09/2015 Active Comment on above: Use 2 Sprays in the nose once daily. UltraFlora IB Probiotic (2 sources) Start: 10-24-2024 UltraFlora IB Probiotic Active PO daily October 24, 2024 12:00am Completed/Discontinued Medications Medication Drug Class(es) Dates Sig (Normalized) Sig (Original) betamethasone 3 mg/ml / betamethasone acetate 3 mg/ml injectable suspension (10 sources) Corticosteroid Start: 02-10-2025 End: 02-10-2025 6 mg, Injection - FOR ORTHO USE ONLY, ONCE, 1 dose, Starting on Mon02/10/25 at 1115, Until Mon02/10/25 at 1115 Start: 02-10-2025 End: 02-10-2025 betamethasone acetate-betame thasone sodium phosphate 6 mg injection (CELESTONE) Start: 09-30-2024 End: 09-30-2024 6 mg, Injection - FOR ORTHO USE ONLY, ONCE, 1 dose, Starting on 09/30/24 at 0834, Until Mon09/30/24 at 0834 Start: 09-30-2024 End: 09-30-2024 betamethasone acetate-betame thasone sodium phosphate 6 mg injection (CELESTONE) Start: 05-13-2024 End: 05-13-2024 6 mg, Injection - FOR ORTHO USE ONLY, ONCE, 1 dose, Starting on Mon05/13/24 at 1605, Until Mon05/13/24 at 1605 Start: 05-13-2024 End: 05-13-2024 betamethasone acetate-betame thasone sodium phosphate 6 mg injection (CELESTONE) dicyclomine hydrochloride 10 mg oral capsule (1 source) Anticholinergic Start: 06-05-2020 End: 06-01-2021 take 1 capsule by mouth twice daily dicyclomine (BENTYL) 10 mg capsule Indications: Functional bowel disorder Take 1 capsule by mouth twice daily. 180 capsule 3 06/05/2020 06/01/2021 Discontinued (Course of therapy completed) fluconazole 200 mg oral tablet (6 sources) Azole Antifungal Start: 07-20-2023 End: 02-26-2024 fluconazole (DIFLUCAN) 200 mg tablet 2 tablets on Monday once weekly for 3 months 07/20/2023 02/26/2024 Discontinued (Course of therapy completed) Comment on above: 2 tablets on Monday once weekly for 3 months 3 ml sodium hyaluronate 20 mg/ml prefilled syringe (4 sources) Start: 10-18-2024 End: 10-18-2024 hyaluronate sodium, stabilized syrg 3 mL (DUROLANE) Start: 10-18-2024 End: 10-18-2024 3 mL, Injection - FOR ORTHO USE ONLY, ONCE, 1 dose, Starting on Mon10/18/24 at 1133, Until Mon10/18/24 at 1133 10 ml lidocaine hydrochloride 10 mg/ml injection (10 sources) Antiarrhythmic, Amide Local Anesthetic Start: 02-10-2025 End: 02-10-2025 5 mL, Injection - FOR ORTHO USE ONLY, ONCE, 1 dose, Starting on Mon02/10/25 at 1115, Until Mon02/10/25 at 1115 Start: 02-10-2025 End: 02-10-2025 lidocaine (PF) 10 mg/mL (1 % ) 5 mL injection (XYLOCAINE) Start: 09-30-2024 End: 09-30-2024 5 mL, Injection - FOR ORTHO USE ONLY, ONCE, 1 dose, Starting on Mon09/30/24 at 0834, Until Mon09/30/24 at 0834 Start: 09-30-2024 End: 09-30-2024 lidocaine (PF) 10 mg/mL (1 % ) 5 mL injection (XYLOCAINE) Start: 05-13-2024 End: 05-13-2024 5 mL, Injection - FOR ORTHO USE ONLY, ONCE, 1 dose, Starting on Mon05/13/24 at 1605, Until Mon05/13/24 at 1605 Start: 05-13-2024 End: 05-13-2024 lidocaine (PF) 10 mg/mL (1 % ) 5 mL injection (XYLOCAINE) meloxicam 15 mg oral tablet (9 sources) Nonsteroidal Anti-inflammatory Drug Start: 10-20-2022 End: 11-19-2022 take 1 tablet by mouth once daily at mealtime meloxicam (MOBIC) 15 mg tablet Indications: Chronic pain of right knee Take 1 tablet by mouth once daily. With food. 30 tablet 3 10/20/2022 11/19/2022 Comment on above: Take 1 tablet by lynette once daily. With food. ondansetron 4 mg disintegrating oral tablet (3 sources) Serotonin-3 Receptor Antagonist Start: 05-26-2024 End: 09-16-2024 take 1 tablet by mouth every eight hours as needed for nausea Ondansetron 4 mg tablet,disintegratin g Discontinued 4 mg PO EVERY 8 HOURS NEEDED as needed for Nausea May 26, 2024 1:00am September 16, 2024 12:50pm sucralfate 1000 mg oral tablet (1 source) Aluminum Complex Start: 07-06-2020 End: 09-08-2020 take 1 tablet by mouth at bedtime sucralfate (CARAFATE) 1 gram tablet Indications: Gastroesophageal reflux disease, unspecified whether esophagitis present Take 1 tablet by mouth before meals and at bedtime. 120 tablet 2 07/06/2020 09/08/2020 Discontinued (Course of therapy completed) terbinafine 250 mg oral tablet (20 sources) Allylamine Antifungal Start: 02-21-2022 End: 02-27-2023 take 1 tablet by mouth once daily terbinafine HCl (LAMISIL) 250 mg tablet Indications: Nail fungus Take 1 tablet by mouth once daily. 30 tablet 2 02/21/2022 02/27/2023 Discontinued Comment on above: Take 1 tablet by lynette th once daily. Problems Active Problems Problem Classification Problem Date Documented Da te Episodic/Chronic Acute bronchitis (5 sources) Acute bronchitis; Translations: [Acute bronchitis, unspecified] Onset: 5 Episodic Administrative/social admission (1 source) Persons encountering health services in other specified circumstances; Translations: [Encounter to establish care] Onset: 5 Episodic Cardiac dysrhythmias (1 source) Palpitations; Translations: [Palpitations] 08-18-2023 Episodic Diabetes mellitus without complication (7 sources) Increased glucose level; Translations: [Other abnormal glucose] Onset: 5 Episodic Disorders of lipid metabolism (20 sources) Hyperlipidemia; Translations: [Hyperlipidemia, unspecified] Onset: 1 06-28-2021 Chronic Esophageal disorders (20 sources) Gastroesophageal reflux disease; Translations: [Gastro-esophageal reflux disease without esophagitis] Onset: 0 09-08-2009 Chronic Esophageal disorders (1 source) Regurgitant esophagitis; Translations: [Regurgitant esophagitis] Episodic Fever of unknown origin (1 source) Fever with chills; Translations: [Fever, unspecified] 03-15-2024 Episodic Gastritis and duodenitis (1 source) Chronic superficial gastritis; Translations: [Chronic superficial gastritis without bleeding] Chronic Gout and other crystal arthropathies (2 sources) Chondrocalcinosis of knee joint; Translations: [Other chondrocalcinosis, unspecified knee] Chronic Immunizations and screening for infectious disease (3 sources) Requires influenza virus vaccination; Translations: [Encounter for immunization] Onset: 5 03-18-2025 Episodic Malaise and fatigue (1 source) Fatigue; Translations: [Other fatigue] Episodic Mycoses (3 sources) Onychomycosis; Translations: [Tinea unguium] Episodic Osteoarthritis (8 sources) Primary gonarthrosis, bilateral; Translations: [Bilateral primary osteoarthritis of knee] Onset: 5 Chronic Other connective tissue disease (1 source) Calcific tendinitis of right shoulder; Translations: [Calcific tendinitis of right shoulder] 02-10-2025 Episodic Other ear and sense organ disorders (1 source) Acute otitis externa of right ear; Translations: [Unspecified acute noninfective otitis externa, right ear] 08-18-2023 Episodic Other ear and sense organ disorders (1 source) Impacted cerumen in right ear; Translations: [Impacted cerumen, right ear] 08-18-2023 Episodic Other female genital disorders (1 source) Vaginal discomfort; Translations: [Unspecified condition associated with female genital organs and menstrual cycle] 04-11-2023 Episodic Other gastrointestinal disorders (20 sources) Irritable bowel syndrome; Translations: [Irritable bowel syndrome without diarrhea] Onset: 4 12-17-2013 Chronic Other gastrointestinal disorders (2 sources) Irritable bowel syndrome without diarrhea; Translations: [Irritable bowel syndrome, unspecified] Onset: 4 Chronic Other gastrointestinal disorders (1 source) Irritable bowel syndrome with constipation; Translations: [Irritable bowel syndrome with constipation] Onset: 4 Chronic Other gastrointestinal disorders (1 source) Abdominal distension (gaseous); Translations: [Unable to pass flatus] Onset: Episodic Other inflammatory condition of skin (1 source) Rosacea; Translations: [Rosacea, unspecified] 02-26-2024 Chronic Other lower respiratory disease (4 sources) Cough; Translations: [Cough] Episodic Other lower respiratory disease (2 sources) Persistent cough; Translations: [Cough present for greater than 3 weeks] Episodic Other lower respiratory disease (1 source) Nodule of lung; Translations: [Solitary pulmonary nodule] 11-20-2023 Episodic Other non-traumatic joint disorders (1 source) Pain in right knee; Translations: [Pain in joint, lower leg] Episodic Other non-traumatic joint disorders (2 sources) Pain in left knee; Translations: [Pain in joint, lower leg] 04-23-2024 Episodic Other non-traumatic joint disorders (2 sources) Disorder of shoulder; Translations: [Other specified joint disorders, unspecified shoulder] 02-10-2025 Episodic Other screening for suspected conditions (not mental disorders or infectious disease) (17 sources) Patient encounter status; Translations: [Encounter for screening mammogram for malignant neoplasm of breast] Episodic Other skin disorders (1 source) Seborrheic keratosis; Translations: [Other seborrheic keratosis] 02-27-2023 Episodic Other upper respiratory disease (20 sources) Seasonal allergic rhinitis; Translations: [Other seasonal allergic rhinitis] 01-26-2017 Chronic Other upper respiratory disease (1 source) Chronic rhinitis; Translations: [Unspecified sinusitis (chronic)] 03-22-2023 Chronic Other upper respiratory disease (1 source) Other seasonal allergic rhinitis; Translations: [Seasonal allergic rhinitis, unspecified trigger] Onset: 7 Chronic Other upper respiratory disease (3 sources) Congestion of nasal sinus; Translations: [Nasal congestion] Episodic Other upper respiratory infections (8 sources) Chronic sinusitis; Translations: [Chronic sinusitis, unspecified] Onset: 4 Chronic Other upper respiratory infections (20 sources) Viral upper respiratory tract infection; Translations: [Acute upper respiratory infection, unspecified] Onset: 0 Episodic Otitis media and related conditions (2 sources) Dysfunction of bilateral eustachian tubes; Translations: [Unspecified Eustachian tube disorder, bilateral] Onset: 5 09-19-2023 Episodic Poisoning by nonmedicinal substances (1 source) Insect sting; Translations: [Toxic effect of venom of other arthropod, accidental (unintentional), initial encounter] 04-24-2024 Episodic Residual codes; unclassified (5 sources) Tobacco user; Translations: [Tobacco use] Episodic Residual codes; unclassified (1 source) Generalized aches and pains; Translations: [Pain, unspecified] 03-15-2024 Episodic Screening and history of mental health and substance abuse codes (3 sources) Personal history of nicotine dependence; Translations: [Encounter for screening for depression] Onset: 5 Episodic Spondylosis; intervertebral disc disorders; other back problems (3 sources) Chronic low back pain; Translations: [Lumbago with sciatica, left side] Episodic Substance-related disorders (7 sources) Smoker; Translations: [Nicotine dependence, unspecified, uncomplicated] Onset: 5 Chronic Thyroid disorders (20 sources) Hypothyroidism; Translations: [Hypothyroidism, unspecified] Onset: 0 11-24-2010 Chronic Past or Other Problems Problem Classification Problem Date Documented Da te Episodic/Chronic Abdominal hernia (20 sources) Incisional hernia; Translations: [Incisional hernia without obstruction or gangrene] Onset: 03-29-2012 03-29-2012 Episodic Abdominal pain (20 sources) Epigastric pain; Translations: [Epigastric pain] Onset: 12-19-2007 Resolved: 09-02-2009 03-12-2012 Episodic Bacterial infection; unspecified site (1 source) Other specified bacterial agents as the cause of diseases classified elsewhere; Translations: [Bacterial sinusitis] Onset: 05-17-2024 Episodic Biliary tract disease (20 sources) Biliary dyskinesia; Translations: [Other specified diseases of gallbladder] Onset: 03-29-2012 03-29-2012 Episodic E Codes: Natural/environment (1 source) Bitten or stung by nonvenomous insect and other nonvenomous arthropods, initial encounter; Translations: [Insect bite of nose, initial encounter] Onset: 12-23-2024 Episodic Gastritis and duodenitis (20 sources) Acute gastritis; Translations: [Acute gastritis without bleeding] Onset: 03-12-2012 03-12-2012 Episodic Nausea and vomiting (20 sources) Nausea; Translations: [Nausea] Onset: 03-12-2012 03-12-2012 Episodic Noninfectious gastroenteritis (5 sources) Gastroenteritis; Translations: [Noninfective gastroenteritis and colitis, unspecified] Onset: 08-29-2024 06-10-2024 Episodic Other bone disease and musculoskeletal deformities (20 sources) Osteopenia; Translations: [Other specified disorders of bone density and structure, unspecified site] Onset: 11-24-2010 06-28-2021 Episodic Other connective tissue disease (1 source) Calcific tendinitis of right shoulder; Translations: [Calcific tendinitis of right shoulder] Onset: 02-10-2025 Episodic Other gastrointestinal disorders (20 sources) Constipation; Translations: [Constipation, unspecified] Resolved: 09-02-2009 09-02-2009 Episodic Other gastrointestinal disorders (20 sources) Diarrhea; Translations: [Diarrhea, unspecified] Onset: 03-11-2008 Resolved: 09-02-2009 09-02-2009 Episodic Other gastrointestinal disorders (1 source) Diarrhea, unspecified; Translations: [Diarrhea, unspecified] Onset: 07-25-2024 Episodic Other non-traumatic joint disorders (1 source) Other specified joint disorders, unspecified shoulder; Translations: [Shoulder impingement] Onset: 02-10-2025 Episodic Skin and subcutaneous tissue infections (2 sources) Cellulitis of skin; Translations: [Cellulitis, unspecified] Onset: 12-23-2024 12-23-2024 Episodic Superficial injury; contusion (3 sources) Foreign body of skin of finger; Translations: [Superficial foreign body of unspecified finger, initial encounter] Onset: 12-23-2024 Episodic Syncope (20 sources) Syncope and collapse; Translations: [Syncope and collapse] Onset: 12-22-2017 06-22-2023 Episodic Results Test Name Value Interpretation Reference Range Facility CNOV 05-14-2025 CNOV Office Visit (FAMPWS ) ROMAN KUHN ([id number]) 1950 F Date Time Provider Department 05/14/25 12:00 PM KEV CAMPOS During your visit today, we recorded the following information about you: Temperature Pulse Respiration Blood pressure 97.9 degrees 90/minute 24/minute 110/68 Weight Height 55 kg 1.571 m Kev Campos MD 05/14/2025 12:43 PM Signed Chief Complaint Patient presents with: ER F/U: [facility] ER F/U 05/09 seen for abd pain/bloating. Hx of IBS and GERD. Given Sucralfate. Still not feeling well. Recording using [employer] software for draft documentation of the visit was discussed with the patient/authorized paper sales representative; all questions welcomed and answered. Patient/authorized paper sales representative agreed to proceed HPI Roman Kuhn is a 74 year old female who presents here today for ER Follow Up. Ron J Hattie is a 74-year-old female with a history of IBS and GERD, presenting for follow-up after a recent ED visit for abdominal discomfort and bloating. IBS and GERD: - Recent ED visit on May 09 for abdominal discomfort and bloating. - Reports frequent constipation, worsening acid reflux, and bloating. - Describes a sensation of pressure in the abdomen, prompting the ED visit. - ED treatment included a GI cocktail and initiation of Carafate TID for one week. - Followed up with Dr. Woodall's office via phone; next appointment scheduled for June 19. - Currently taking Carafate TID, pantoprazole BID, and Pepcid 40 mg at bedtime. - Ron reports improvement in burning sensation in the chest and abdomen with Carafate. - Experiencing difficulty with eructation and flatulence; describes stools as soft serve, squirting out. - Denies hematochezia, melena, or emesis. - Regular bowel movements in the morning, 3-4 times daily, described as loose and small. - No abdominal pain reported, only pressure. - Recent COVID-19 vaccination noted; Ron reports exacerbation of symptoms post-vaccination. - Inquires about the use of Rolaids for nausea. - Denies fevers, chills, cough, wheezing, chest pain, or palpitations. Past medical history, appointments, medications, allergies reviewed. Previous Medical History PAST MEDICAL HISTORY Diagnosis Date Abdominal pain, epigastric Allergic rhinitis, cause unspecified Allergic rhinitis Bile reflux gastritis Esophageal reflux Bile reflux gastritis IBS (irritable bowel syndrome) constipation primarily Other and unspecified hyperlipidemia Unspecified hypothyroidism Previous Surgical History PAST SURGICAL HISTORY Procedure Laterality Date ABDOMINAL SURGERY HX BIOPSY BREAST OPEN INCISIONAL 08/14/2017 left stereotactic breast biopsy w/clip placement [facility] COLONOSCOPY N/A 09/17/2024 COLONOSCOPY FLX DX W/COLLJ SPEC WHEN PFRMD 12/18/2003 Colonoscopy COLONOSCOPY FLX DX W/COLLJ SPEC WHEN PFRMD 03/11/2008 Colonoscopy COLONOSCOPY FLX DX W/COLLJ SPEC WHEN PFRMD 07/19/2012 Colonoscopy COLONOSCOPY FLX DX W/COLLJ SPEC WHEN PFRMD 11/13/2018 Colonoscopy COSMETIC ASSESSMENT EGD 09/01/2020 EGD W/O [facility] SPEC VARICIES INJ N/A 09/17/2024 ESOPHAGOGASTRODUODENOSCOPY TRANSORAL DIAGNOSTIC 03/12/2012 EGD ESOPHAGOGASTRODUODENOSCOPY TRANSORAL DIAGNOSTIC 11/13/2018 EGD EYE SURGERY HX cataracts with lens implants LAPS SURG CHOLECYSTECTOMY W/CHOLANGIOGRAPHY 04/17/2012 Normal IOC PAST SURGICAL HISTORY OF hemmorhoidectomy PAST SURGICAL HISTORY OF age 27 partial hysterectomy PAST SURGICAL HISTORY OF 1998 benign breast bx PAST SURGICAL HISTORY OF 07/2002 lasik eye surgery PAST SURGICAL HISTORY OF 07/2006 recheck and enhancement on eye surgery PAST SURGICAL HISTORY OF Bilateral 2019 OD - 08/21, OS - 09/[address] Stock. Cataract implants RHINP PRIM LATANDALAR CRTLGSAND/ELVTN NASAL TI Rhinoplasty x 2 VAGINAL HYSTERECTOMY Family History FAMILY HISTORY Problem Relation Age of Onset Heart Mother valve, age 81 Prostate Cancer Father Coronary Artery Disease Father late in life; enlarged heart; smoked Colon Cancer Maternal Grandfather Patient Allergies ALLERGIES Allergen Reactions Ceclor [Cefaclor] ER for anaphylaxis Avelox [Moxifloxaci* Intolerance Bactrim [Sulfametho* Unknown Insides were raging Biaxin [Clarithromy* Celexa [Citalopram * Unknown Cipro [Ciprofloxaci* GI Upset Erythromycin GI Upset GI upset Levsinex [Hyoscyami* Lipitor [Atorvastat* Myalgia Parafon Forte Dsc [* Paxil [Paroxetine H* Sulfa (Sulfonamide * Other: See Comments Yeast infections Suprax [Cefixime] Urispas [Flavoxate * Voltaren [Diclofena* Current Medications Current Outpatient Medications on File Prior to Visit Medication Sig sucralfate (CARAFATE) 1 gram tablet Take 1 g by mouth three times a day. polyethylene glycol 3350 17 gram/dose powder Take 17 g by mouth once daily (more content not included)... Normal [facility] XR ABDOMEN 1V SUPINEon 05-14 XR ABDOMEN 1V SUPINE * * *Final Report* * * DATE OF EXAM: May 14 2025 1:23PM WOX [id number] - XR ABDOMEN 1V SUPINE / PROCEDURE REASON: multiple diagnoses * * * * Physician Interpretation * * * * History: Irritable bowel syndrome FINDINGS: 2 segmental views of the abdomen were obtained. There is a nonobstructive bowel gas pattern. No mass lesion or abnormal calcification is seen. Phleboliths noted within the pelvis. There is nothing to suggest free intraperitoneal air. Visualized lung bases are clear. Osseous structures appear intact. Chronic changes of the symphysis pubis noted. IMPRESSION: No pathologic process is seen. Certified Medical Dosimetrist: AMADO Transcribe Date/Time: May 14 2025 1:54P Dictated by : DOUGLAS DURHAM MD This examination was interpreted and the report reviewed and electronically signed by: DOUGLAS DURHAM MD on May 14 2025 1:56PM EST [id number] Normal [facility] CBC W/Diff, Automatedon 11-0 -2024 Absolute Lymph 4.75 X10 3/uL High 0.83-4.51 [facility] Comment on above: Performed By: #### L 100.0100, L501.2450, [id number] #### [facility] [address] [place], [address] Absolute Neut 4.3 X10 3/uL Normal 2.0-7.7 [facility] Comment on above: Performed By: #### L 100.0100, L501.2450, [id number] #### [facility] [address] [place], [address] Basophils/100 WBC (Bld) 0.8 % Normal 0-1 [facility] Comment on above: Performed By: #### L 100.0100, L501.2450, [id number] #### [facility] [address] [place], [address] Eosinophils/100 WBC (Bld) 2.3 % Normal 0-5 [facility] Comment on above: Performed By: #### L 100.0100, [id number], [id number] #### [facility] [address] [place], [address] Erythrocyte distribution width (RBC) [Ratio] 13.0 % Normal 11.6-14.6 [facility] Comment on above: Performed By: #### L 100.0100, L501.2450, [id number] #### [facility] [address] [place], [address] Hematocrit (Bld) [Volume fraction] 39.0 % Normal 37-47 [facility] Comment on above: Performed By: #### L 100.0100, L501.2450, [id number] #### [facility] [address] [place], [address] Hemoglobin (Bld) [Mass/Vol] 13.3 g/dL Normal 12.0-15.0 [facility] Comment on above: Performed By: #### L 100.0100, L501.2450, [id number] #### [facility] [address] [place], [address] IG% 0.300 Normal 0.0-0.9 [facility] Comment on above: Result Comment: IG% - Immature Granulocytes (promyelocytes, myelocytes and metamyelocytes) > 1% indicates that a LEFT SHIFT is Present. Performed By: #### L 100.0100, L501.2450, [id number] #### [facility] [address] [place], [address] Lymphocytes/100 WBC (Bld) 46.1 % High 19-41 [facility] Comment on above: Performed By: #### L 100.0100, [id number], [id number] #### [facility] [address] [place], [address] MCH (RBC) [Entitic mass] 32.7 pg High 27.0-32.0 [facility] Comment on above: Performed By: #### L 100.0100, [id number], [id number] #### [facility] [address] [place], [address] MCHC (RBC) [Mass/Vol] 34.1 g/dL Normal 32-36 [facility] Comment on above: Performed By: #### L 100.0100, [id number], [id number] #### [facility] [address] [place], [address] MCV (RBC) [Entitic vol] 95.8 fL Normal 81-99 [facility] Comment on above: Performed By: #### L 100.0100, [id number], [id number] #### [facility] [address] [place], [address] Monocytes/100 WBC (Bld) 8.5 % Normal 0-10 [facility] Comment on above: Performed By: #### L 100.0100, [id number], [id number] #### [facility] [address] [place], [address] Neutrophils/100 WBC (Bld) 42.0 % Low 47-70 [facility] Comment on above: Performed By: #### L 100.0100, [id number], [id number] #### [facility] [address] [place], [address] Nucleated RBC (Bld) [#/Vol] 0 10*3/uL Normal 0-5 [facility] Comment on above: Performed By: #### L 100.0100, [id number], [id number] #### [facility] [address] [place], [address] Platelet mean volume (Bld) [Entitic vol] 8.6 fL Normal 6.2-12.0 [facility] Comment on above: Performed By: #### L 100.0100, [id number], [id number] #### [facility] [address] [place], [address] Platelets (Bld) [#/Vol] 329 10*3/uL Normal 150-450 [facility] Comment on above: Performed By: #### L 100.0100, [id number], [id number] #### [facility] [address] [place], [address] RBC (Bld) [#/Vol] 4.07 10*6/uL Low 4.2-5.4 [facility] Comment on above: Performed By: #### L 100.0100, [id number], [id number] #### [facility] [address] [place], [address] RDW SD 45.8 fl High 35.1-43.9 [facility] Comment on above: Performed By: #### L 100.0100, [id number], [id number] #### [facility] [address] [place], [address] WBC (Bld) [#/Vol] 10.3 10*3/uL Normal 4.4-11.0 [facility] Comment on above: Performed By: #### L 100.0100, [id number], [id number] #### [facility] [address] [place], [address] Comprehensive Metabolic Prof kson 05-09-2025 Albumin [Mass/Vol] 4.3 g/dL Normal 3.4-4.8 [facility] Comment on above: Performed By: #### L 100.0100, [id number], [id number] #### [facility] [address] [place], [address] Albumin/Globulin [Mass ratio] 1.9 {ratio} Normal 0.9-2.4 [facility] Comment on above: Performed By: #### L 100.0100, [id number], [id number] #### [facility] [address] [place], [address] ALK PHOS 64 U/L Normal 35-104 [facility] Comment on above: Performed By: #### L 100.0100, [id number], [id number] #### [facility] [address] [place], [address] ALT [Catalytic activity/Vol] 16 U/L Normal <=34 [facility] Comment on above: Performed By: #### L 100.0100, [id number], [id number] #### [facility] [address] [place], [address] AST [Catalytic activity/Vol] 22 U/L Normal <=31 [facility] Comment on above: Performed By: #### L 100.0100, [id number], [id number] #### [facility] [address] [place], [address] Bilirubin [Mass/Vol] 0.30 mg/dL Normal 0.00-1.30 [facility] Comment on above: Performed By: #### L 100.0100, L501.2450, L500.4050 #### [facility] [address] [place], [address] BUN/CRE 10.7 RATIO Normal 10-20 [facility] Comment on above: Performed By: #### L 100.0100, L501.2450, L500.4050 #### [facility] [address] [place], [address] Calcium [Mass/Vol] 9.5 mg/dL Normal 7.6-11.0 [facility] Comment on above: Performed By: #### L 100.0100, L501.2450, L500.4050 #### [facility] [address] [place], [address] Chloride [Moles/Vol] 105 mmol/L Normal 98-108 [facility] Comment on above: Performed By: #### L 100.0100, L501.2450, L500.4050 #### [facility] [address] [place], [address] CO2 [Moles/Vol] 25.9 mmol/L Normal 21.0-32.0 [facility] Comment on above: Performed By: #### L 100.0100, L501.2450, L500.4050 #### [facility] [address] [place], [address] Creatinine [Mass/Vol] 0.67 mg/dL Low 0.70-1.20 [facility] Comment on above: Performed By: #### L 100.0100, L501.2450, L500.4050 #### [facility] [address] [place], [address] ECRCL 49.49 ml/min Low 50-250 [facility] Comment on above: Performed By: #### L 100.0100, L501.2450, L500.4050 #### [facility] [address] [place], [address] GAP 11 Normal 5-15 [facility] Comment on above: Performed By: #### L 100.0100, L501.2450, L500.4050 #### [facility] [address] [place], [address] GFR/1.73 sq M.predicted among non-blacks MDRD (S/P/Bld) [Vol rate/Area] 91 mL/min/{1.73_m2} Normal >60 [facility] Comment on above: Result Comment: mL/m in/1.73m2 CKD-EPI Creatinine Equation (2020) Performed By: #### L 100.0100, L501.2450, L500.4050 #### [facility] [address] [place], [address] Globulin (S) [Mass/Vol] 2.3 g/dL Normal 2.2-4.2 [facility] Comment on above: Performed By: #### L 100.0100, L501.2450, L500.4050 #### [facility] [address] [place], [address] Glucose [Mass/Vol] 108 mg/dL High 70-99 [facility] Comment on above: Performed By: #### L 100.0100, L501.2450, L500.4050 #### [facility] [address] [place], [address] Potassium [Moles/Vol] 3.6 mmol/L Normal 3.3-5.1 [facility] Comment on above: Performed By: #### L 100.0100, L501.2450, L500.4050 #### [facility] [address] [place], [address] Sodium [Moles/Vol] 141 mmol/L Normal 133-145 [facility] Comment on above: Performed By: #### L 100.0100, L501.2450, L500.4050 #### [facility] [address] [place], [address] T PROT 6.6 g/dL Normal 5.9-8.4 [facility] Comment on above: Performed By: #### L 100.0100, L501.2450, L500.4050 #### [facility] [address] [place], [address] Urea nitrogen [Mass/Vol] 7 mg/dL Normal 4-19 [facility] Comment on above: Performed By: #### L 100.0100, L501.2450, L500.4050 #### [facility] [address] [place], [address] Emergency Department Summary on 05-09-2025 Emergency Department Summary [facility] Medical Records Department [address] [place] [address] Emergency Department Summary 05/09/25 MR#: [id number] Acct: [id number] Name: ROMAN KUHN Rep #: [id number] : 1950 74 From: Garry Martinez DO PCP: Dr. Pepe Reyes MD Status:REG ER Location: ED HPI History of Present Illness Chief Complaint: Abd Pain Narrative Narrative: Chief complaint and HPI: 74-year-old female with past medical history of IBS and GERD presents for evaluation of acid reflux. Patient states that she frequently suffers from constipation in which she is on home bowel regimen. She states she recently got the COVID-19 vaccine in which she developed worsening acid reflux and bloating. She called Dr. Woodall's office who told her to come to the emergency department. She denies any fever, chills, shortness of breath, chest pain, dysuria. States she has had been having some intermittent abdominal cramping. She has been taking her home Pepcid and Protonix with minimal relief. On chart review, patient last saw GI on 12/19/2024. She had an EGD and colonoscopy on that showed bile gastritis and diverticulosis. Review of systems: See HPI Medications: As listed on the chart Allergies: As listed on the chart PFSH: Per chart Vital signs: As listed on the chart. Reviewed. Physical exam: Gen: A O x3, NAD Head: Normocephalic, atraumatic Eyes: No sclera icterus, conjunctiva clear ENT: Moist mucous membranes CV: RRR, no murmurs Resp: Lungs CTA BL, no w/r/c GI: Abd soft, non-distended, non-tender, no r/r/g Musc: Moves all extremities Skin: Warm, dry Psych: Cooperative, appropriate mood and affect [facility] Medical History Hypothyroid Thyroid disease Arthritis High cholesterol History of IBS Smoker History of stress test IBS (irritable bowel syndrome) GERD (gastroesophageal reflux disease) Home Medications ???Medication ???Instructions ???Recorded ???Last Taken ???Type levothyroxine 112 mcg capsule 112 mcg PO QDAY 06/27/24 Unknown H istory pravastatin 40 mg tablet 40 mg PO QDAY 06/27/24 Unknown His tory UltraFlora IB Probiotic PO QDAY 10/24/24 Unknown History colestipol 1 gram tablet 1 g PO BID #60 tabs 11/14/24 Unkno wn Rx famotidine 40 mg tablet 40 mg PO QHS #90 tabs 11/14/24 Unk nown Rx pantoprazole 40 mg tablet,delayed 40 mg PO BID #180 tabs 11/14/24 U nknown Rx release sucralfate 1 gram tablet (Carafate) 1 g PO TID 7 days #21 tabs 01/24 Unknown Rx Allergy/AdvReac Type Severity Reaction Status Date / Time citalopram (From Celexa) Allergy Unknown PT UNSURE Verified 05/09/25 12:45 OF REACTION clarithromycin (From Biaxin) Allergy Unknown PT UNABLE Verified 05/09/25 12:45 TO RESPOND-NEEDS F/U sulfamethoxazole (From Allergy Unknown PT UNSURE Verified 05/09/25 12:45 Bactrim) OF REACTION trimethoprim (From Bactrim) Allergy Unknown PT UNSURE Verified 05/09/25 12:45 OF REACTION atorvastatin (From Lipitor) Allergy PT UNSURE Verified 05/09/25 12:45 OF REACTION cefixime (From Suprax) Allergy PT UNABLE Verified 05/09/25 12:45 TO RESPOND-NEEDS F/U chlorzoxazone (From Parafon Allergy PT UNSURE Verified 05/09/25 12:45 Forte) OF REACTION ciprofloxacin (From Cipro) Allergy PT UNABLE Verified 05/09/25 12:45 TO RESPOND-NEEDS F/U diclofenac (From Voltaren) Allergy PT UNABLE Verified 05/09/25 12:45 TO RESPOND-NEEDS F/U flavoxate (From Urispas) Allergy PT UNABLE Verified 05/09/25 12:45 TO RESPOND-NEEDS F/U guaifenesin (From Entex LA) Allergy PT UNABLE Verified 05/09/25 12:45 TO RESPOND-NEEDS F/U hyoscyamine (From Levsinex) Allergy PT UNSURE Verified 05/09/25 12:45 OF REACTION moxifloxacin (From Avelox) Allergy PT UNSURE Verified 05/09/25 12:45 OF REACTION paroxetine (From Paxil) Allergy PT UNSURE Verified 05/09/25 12:45 OF REACTION phenylephrine (From Entex LA) Allergy PT UNABLE Verified 05/09/25 12:45 TO RESPOND-NEEDS F/U phenylpropanolamine (From Allergy PT UNABLE Verified 05/09/25 12:45 Entex LA) TO RESPOND-NEEDS F/U Sulfa (Sulfonamide Allergy PT UNABLE Verified 05/09/25 12:45 Antibiotics) TO RESPOND-NEEDS F/U Surgical History History of colonoscopy History of esophagogastroduodenoscopy (EGD) Status post panniculectomy ( 1980) History of cholecystectomy History of partial hysterectomy Social History Smoking Status: Current every day smoker tobacco type: cigarettes EXAM Physical Exam Const Vital Signs: 05/09/25 12:43 05/09/25 14:43 05/09/25 16:00 Temperature 98.4 F [place] (more content not included)... Normal [facility] L501.4021on 05-09-2025 Trop T High Sen 12 ng/L Normal <=14 [facility] Comment on above: Performed By: #### L 400.0001 #### [facility] [address] [place], [address] Lipaseon 05-09-2025 Lipase [Catalytic activity/Vol] 38 U/L Normal 13-75 [facility] Comment on above: Result Comment: Moe haney note: LIPASE revised reference range effective 22. New Lipase methodology. Expected to produce lower values than the previous assay method. NEW Reference Range: 13 - 75 U/L Performed By: #### L 100.0100, L501.2450, L500.4050 #### [facility] [address] [place], [address] Urinalysis, Completeon 05-09 BACTERIA 0 SEEN Normal None Seen [facility] Comment on above: Order Comment: CLEAN CATCH Performed By: #### L 400.0001 #### [facility] [address] [place], [address] EPI,SQUAMOUS 0 SEEN Normal 5-10 [facility] Comment on above: Order Comment: CLEAN CATCH Performed By: #### L 400.0001 #### [facility] [address] [place], [address] Mucus Ql (Urine sed) 0 SEEN Normal [facility] Comment on above: Order Comment: CLEAN CATCH Performed By: #### L 400.0001 #### [facility] [address] [place], [address] RBC 0 SEEN Normal 0-5 [facility] Comment on above: Order Comment: CLEAN CATCH Performed By: #### L 400.0001 #### [facility] [address] [place], [address] WBC 0 SEEN Normal 0-5 [facility] Comment on above: Order Comment: CLEAN CATCH Performed By: #### L 400.0001 #### [facility] [address] [place], [address] CNOVon 04-28-2025 CNOV Office Visit (DMITRIYWS ) ROMAN KUHN ([id number]) 1950 F Date Time Provider Department 04/28/25 1:00 PM KILEY BROOKS During your visit today, we recorded the following information about you: Pulse Respiration Blood pressure Weight 100/minute 18/minute 126/84 55.2 kg Height 1.571 m Kiley Brooks APRN.CNP 04/28/2025 2:04 PM Signed 04/28/2025 Patient presents with: Transfer of care to new provider Recording using [employer] software for draft documentation of the visit was discussed with the patient/authorized paper sales representative; all questions welcomed and answered. Patient/authorized paper sales representative agreed to proceed SUBJECTIVE: This is a 74 year old that is here today for Above Complaints.. Ron J Hattie is a 74-year-old female with a history of hypothyroidism, hyperlipidemia, IBS, and bile reflux gastritis, presenting for follow-up. Hypothyroidism: - Levothyroxine dose increased to [address] Elderbrock 6 weeks ago. - Adherent to medication, taking it first thing in the morning on an empty stomach. - No TSH recheck since dose adjustment. Bile Reflux Gastritis: - Diagnosed by Dr. Woodall in June. - Taking colestipol BID, after breakfast and dinner. - Taking famotidine 40 mg at bedtime. - Taking pantoprazole 30 minutes before breakfast and dinner. IBS: - Primarily constipation. - Using Miralax daily in the morning, dissolved in coffee. - Taking Benefiber. Allergic Rhinitis: - Symptoms primarily in spring and fall, including sinus headaches and inflammation. - Using a neti pot every morning. - Using Flonase nasal spray. Hyperlipidemia: - Taking pravastatin 40 mg daily. - Reports decreased physical activity since correction. Family History: - Mother at 81 due to heart issues. - Father had prostate cancer and an enlarged heart. - Brother ; sister's status unknown. - Maternal grandfather of colon cancer. Social History: - Smokes 1/3 to 1/4 pack of cigarettes per day. - Rare alcohol consumption. - No illicit drug use. - with two children. - Retired, previously worked at [employer]. Past medical, surgical, family, social hx, medications, allergies and health maintenance reviewed and updated PAST MEDICAL HISTORY Diagnosis Date Abdominal pain, epigastric Allergic rhinitis, cause unspecified Allergic rhinitis Bile reflux gastritis Esophageal reflux Bile reflux gastritis IBS (irritable bowel syndrome) constipation primarily Other and unspecified hyperlipidemia Unspecified hypothyroidism ALLERGIES Ceclor [Cefaclor], Avelox [Moxifloxacin Hcl], Bactrim [Sulfamethoxazole], Biaxin [Clarithromycin], Celexa [Citalopram Hydrobromide], Cipro [Ciprofloxacin], Erythromycin, Levsinex [Hyoscyamine Sulfate], Lipitor [Atorvastatin Calcium], Parafon Forte Dsc [Chlorzoxazone], Paxil [Paroxetine Hcl], Sulfa (Sulfonamide Antibiotics), Suprax [Cefixime], Urispas [Flavoxate Hcl], and Voltaren [Diclofenac Sodium] MEDICATIONS Current Outpatient Medications Medication Sig levothyroxine (SYNTHROID) 150 mcg tablet Take 1 tablet by mouth once daily. Take on empty stomach. For thyroid colestipol (COLESTID) 1 gram tablet Take 1 tablet by mouth two times a day. pravastatin (PRAVACHOL) 40 mg tablet Take 1 tablet by mouth once daily. famotidine (PEPCID) 20 mg tablet Take 1 tablet by mouth once daily. Taking 2 tablets by mouth once daily before bedtime. pantoprazole DR (PROTONIX) 40 mg tablet Take 1 tablet by mouth two times a day. Take on empty stomach, 1/2 hr before meal. albuterol HFA (VENTOLIN HFA) 90 mcg/actuation inhaler Inhale 2 Puffs as instructed every 6 hours as needed for wheezing/shortness of breath. tretinoin (RETIN-A) 0.025 % topical cream Apply 1 application to affected area daily at bedtime. BENEFIBER, WHEAT DEXTRIN, ORAL Take 2 teaspoonsful by mouth three times a day. triamcinolone acetonide (NASACORT) 55 mcg nasal inhaler Use 2 Sprays in the nose once daily. aspirin(ECOTRIN LOW STRENGTH 81 MG TAB) Take one(1) tablet daily. ONE DAILY MULTI-VITAMIN TAB Take one(1) tablet daily. polyethylene glycol 3350 17 gram/dose powder Take 17 g by mouth once daily. No current facility-administered medications for this visit. Medications and allergies reviewed by this provider. SOCIAL HISTORY SOCIAL HISTORY[1] REVIEW OF SYSTEMS All other reviewed and negative other than HPI. OBJECTIVE: BP 126/84 Pulse 100 Resp 18 Ht 157.1 cm (5' 1.85) Wt 55.2 kg (121 lb 9.6 oz) SpO2 95% BMI 22.35 kg/m? . Vital signs reviewed by this provider. APPEARANCE Well appearing, alert, in no acute distress, well-hydrated, well nourished. EYES PERRLA, conjunctiva and sclera normal. HEART RRR with normal S1 and S2, no murmurs, no gallops, no JVD appreciated LUNG clear to auscultation. No wheezes, rhonch (more content not included)... Normal [facility] TSH SerPl-aCncon 04-28-2025 TSH Qn 2.400 m[IU]/L Normal 0.270-4.20 0 [facility] Comment on above: Order Comment: Speci men Type: BLOOD SPECIMENOrdering Facility: [facility] Address: [address] [place] [address] Performed By: #### 3 016-3 ####[facility] [id number] [address] [facility] CNOVon 04-21-2025 CNOV Office Visit (ORTHWS ) ROMAN KUHN ([id number]) 1950 F Date Time Provider Department 04/21/25 11:30 AM BELINDA JASON During your visit today, we recorded the following information about you: Coty Hardin MA 04/21/2025 2:02 PM Signed Patient presents with: Left Knee - Follow Up, Knee Pain Right Knee - Follow Up, Knee Pain: 6 months post visit Durolane injections bilateral knees AMB ROOMING INTAKE FLOWSHEET DATA Pain Pain Level: 4 Pain Location: Knee-Left Description: Dull Duration Amount of Time: (Ongoing) Frequency: Continuous Intervention/Comfort measure: Medication Patient here for Durolane injections bilateral knees. Taking Therox foam on her knee and helps with the pain. LOT # [id number] EXP 07/02/2027 TARAH Peralta Sondra, PA-C 04/21/2025 2:02 PM Signed Large Joint Arthro/Inj: bilateral knee joints 04/21/2025 2:02 PM The procedure site was prepped in the usual sterile fashion. Site: bilateral knee joints Medications (Right): 3 mL hyaluronate sodium, stabilized 60 mg/3 mL Medications (Left): 3 mL hyaluronate sodium, stabilized 60 mg/3 mL Outcome: Tolerated well, no immediate complications Post-injection instructions were reviewed with the patient and the patient voiced understanding of these instructions. Informed Consent Consent Obtained: Verbal [place] Protocol A moment to CARE was completed. SIGN IN Sign in communication not applicable due to emergent procedure. Personnel directly involved with the procedure wore the appropriate PPE. Special Equipment: N/A Patient/Surrogate Stated/Verified: Patient name, Date of , Relevant allergies and Intended procedure TIME OUT Relevant labs, photos, and/or imaging studies have been reviewed. Consent documented and matches the intended procedure. Correct side/site marked and visible. Medications required for procedure verified. No fire risk assessment and interventions applicable. No implant(s) inserted. SIGN OUT No specimen collected. All instruments, equipment, possible retained foreign bodies accounted for. No post-procedure POC communication to the patient's multidisciplinary team (including the bedside nurse for hospitalized patients) applicable. Referring Provider: BELINDA JASON [[id number]] Allergies As of Date: 04/21/2025 Noted Allergy Reaction CECLOR (CEFACLOR) 04/27/2005 Comments: ER for anaphylaxis AVELOX (MOXIFLOXACIN HCL) 03/05/2010 5 - Intolerance BACTRIM (SULFAMETHOXAZOLE) 12/20/2012 16 - Unknown Comments: Insides were raging BIAXIN (CLARITHROMYCIN) 04/27/2005 CELEXA (CITALOPRAM HYDROBROMIDE) 05/16/2005 16 - Unknown CIPRO (CIPROFLOXACIN) 04/27/2005 ENTEX (PHENYLEPHRINE-GUAIFENESIN) 05/16/2005 ERYTHROMYCIN 04/27/2005 LEVSINEX (HYOSCYAMINE SULFATE) 05/16/2005 LIPITOR (ATORVASTATIN CALCIUM) 05/16/2005 NALDECON SENIOR DX (DEXTROMETHORP*04/27/2005 PARAFON FORTE DSC (CHLORZOXAZONE) 05/16/2005 PAXIL (PAROXETINE HCL) 05/16/2005 SULFA (SULFONAMIDE ANTIBIOTICS) 12/17/2012 14 - Other: See Comments SUPRAX (CEFIXIME) 04/27/2005 URISPAS (FLAVOXATE HCL) 05/16/2005 VOLTAREN (DICLOFENAC SODIUM) 05/16/2005 Date Reviewed: 04/21/2025 Reviewed by: Coty Hardin MA - Fully Assessed Reason for Visit: Follow Up [171] Knee Pain [132] Follow Up [171] Cmt: 6 months post visit Durolane injections bilateral knees Knee Pain [132] Cmt: 6 months post visit Durolane injections bilateral knees Primary Visit Diagnosis:Primary osteoarthritis of both knees [M17.0] Order(s):Large Joint Arthro/Inj: bilateral knee joints [[id number]] Order #: [id number] [] hyaluronate sodium, stabilized syrg 3 mL (DUROLANE)Disp: Rfl: [] hyaluronate sodium, stabilized syrg 3 mL (DUROLANE)Disp: Rfl: Prescriptions as of 04/21/2025 - levothyroxine (SYNTHROID) 150 mcg tablet Take 1 tablet by mouth once daily. Take on empty stomach. For thyroid - colestipol (COLESTID) 1 gram tablet Take 1 tablet by mouth two times a day. - pravastatin (PRAVACHOL) 40 mg tablet Take 1 tablet by mouth once daily. - famotidine (PEPCID) 20 mg tablet Take 1 tablet by mouth once daily. Taking 2 tablets by mouth once daily before bedtime. - pantoprazole DR (PROTONIX) 40 mg tablet Take 1 tablet by mouth two times a day. Take on empty stomach, 1/2 hr before meal. - albuterol HFA (VENTOLIN HFA) 90 mcg/actuation inhaler Inhale 2 Puffs as instructed every 6 hours as needed for wheezing/shortness of breath. - tretinoin (RETIN-A) 0.025 % topical cream Apply 1 application to affected area daily at bedtime. - BENEFIBER, WHEAT DEXTRIN, ORAL Take 2 teaspoonsful by mouth three times a day. - polyethylene glycol 3350 (MIRALAX, GLYCOLAX) 17 gram/dose powder Take 17 g by mouth twice daily. - triamcinolone acetonide (NASACORT) 55 mcg nasal inhaler Use 2 Sprays in the nose once daily. - aspirin(ECOTRI (more content not included)... Normal [facility] CNOVon 04-12-2025 CNOV Office Visit (WOADRIAN) ROMAN KUHN ([id number]) 1950 F Date Time Provider Department 04/12/25 8:15 AM JINA RUIZ During your visit today, we recorded the following information about you: Temperature Pulse Respiration Blood pressure 97 degrees 102/minute 16/minute 132/80 Weight 56.1 kg Jina Ruiz, FRANCISCO.CANCER REGISTRAR 04/12/2025 8:59 AM Signed [facility] Subjective Roman Kuhn is a 74 year old female. Patient presents with: Sinus Problem: right ear pain and swollen glands x 3 weeks Sinus Problem The patient is a 74-year-old female with a history of hyperlipidemia and hypothyroidism, presenting with sinus congestion and right ear pain. Sinus Congestion and Right Ear Pain: - Sinus congestion and right ear pain x3 weeks. - Swollen glands noted. - Woke up this morning with nasal congestion. - Reports feeling freezing and achy yesterday, with a temperature of 100 degreeF. - Taking Claritin-D every other day with some relief. - Took two Tylenol yesterday for aches. - Denies cough. - Similar symptoms occur every fall; last episode was last year - Typically treated with doxycycline for sinus infections. Denies hemoptysis Denies cough Denies dyspnea. Denies SOB Social History: - Smoker. PAST MEDICAL HISTORY Diagnosis Date Abdominal pain, epigastric Allergic rhinitis, cause unspecified Allergic rhinitis Esophageal reflux Bile reflux gastritis IBS (irritable bowel syndrome) constipation primarily Other and unspecified hyperlipidemia Unspecified hypothyroidism PAST SURGICAL HISTORY Procedure Laterality Date ABDOMINAL SURGERY HX BIOPSY BREAST OPEN INCISIONAL 08/14/2017 left stereotactic breast biopsy w/clip placement [facility] COLONOSCOPY N/A 09/17/2024 COLONOSCOPY FLX DX W/COLLJ SPEC WHEN PFRMD 12/18/2003 Colonoscopy COLONOSCOPY FLX DX W/COLLJ SPEC WHEN PFRMD 03/11/2008 Colonoscopy COLONOSCOPY FLX DX W/COLLJ SPEC WHEN PFRMD 07/19/2012 Colonoscopy COLONOSCOPY FLX DX W/COLLJ SPEC WHEN PFRMD 11/13/2018 Colonoscopy COSMETIC ASSESSMENT EGD 09/01/2020 EGD W/O [facility] SPEC VARICIES INJ N/A 09/17/2024 ESOPHAGOGASTRODUODENOSCOPY TRANSORAL DIAGNOSTIC 03/12/2012 EGD ESOPHAGOGASTRODUODENOSCOPY TRANSORAL DIAGNOSTIC 11/13/2018 EGD EYE SURGERY HX LAPS SURG CHOLECYSTECTOMY W/CHOLANGIOGRAPHY 04/17/2012 Normal IOC PAST SURGICAL HISTORY OF hemmorhoidectomy PAST SURGICAL HISTORY OF 1969 ventral hernia repair - [place] - unknown for mesh PAST SURGICAL HISTORY OF age 27 partial hysterectomy PAST SURGICAL HISTORY OF 1998 benign breast bx PAST SURGICAL HISTORY OF 07/2002 lasik eye surgery PAST SURGICAL HISTORY OF 07/2006 recheck and enhancement on eye surgery PAST SURGICAL HISTORY OF Bilateral 2019 OD - 08/21, OS - 09/[address] Stock. Cataract implants RHINP PRIM LATANDALAR CRTLGSAND/ELVTN NASAL TI Rhinoplasty x 2 VAGINAL HYSTERECTOMY ALLERGIES Ceclor [Cefaclor], Avelox [Moxifloxacin Hcl], Bactrim [Sulfamethoxazole], Biaxin [Clarithromycin], Celexa [Citalopram Hydrobromide], Cipro [Ciprofloxacin], Entex [Phenylephrine-Guaifenesin], Erythromycin, Levsinex [Hyoscyamine Sulfate], Lipitor [Atorvastatin Calcium], Naldecon Senior Dx [Dextromethorphan-Guaifenesi n], Parafon Forte Dsc [Chlorzoxazone], Paxil [Paroxetine Hcl], Sulfa (Sulfonamide Antibiotics), Suprax [Cefixime], Urispas [Flavoxate Hcl], and Voltaren [Diclofenac Sodium] MEDICATIONS levothyroxine (SYNTHROID) 150 mcg tablet Take 1 tablet by mouth once daily. Take on empty stomach. For thyroid colestipol (COLESTID) 1 gram tablet Take 1 tablet by mouth two times a day. pravastatin (PRAVACHOL) 40 mg tablet Take 1 tablet by mouth once daily. famotidine (PEPCID) 20 mg tablet Take 1 tablet by mouth once daily. Taking 2 tablets by mouth once daily before bedtime. pantoprazole DR (PROTONIX) 40 mg tablet Take 1 tablet by mouth two times a day. Take on empty stomach, 1/2 hr before meal. albuterol HFA (VENTOLIN HFA) 90 mcg/actuation inhaler Inhale 2 Puffs as instructed every 6 hours as needed for wheezing/shortness of breath. tretinoin (RETIN-A) 0.025 % topical cream Apply 1 application to affected area daily at bedtime. BENEFIBER, WHEAT DEXTRIN, ORAL Take 2 teaspoonsful by mouth three times a day. polyethylene glycol 3350 (MIRALAX, GLYCOLAX) 17 gram/dose powder Take 17 g by mouth twice daily. triamcinolone acetonide (NASACORT) 55 mcg nasal inhaler Use 2 Sprays in the nose once daily. aspirin(ECOTRIN LOW STRENGTH 81 MG TAB) Take one(1) tablet daily. ONE DAILY MULTI-VITAMIN TAB Take one(1) tablet daily. doxycycline hyclate (VIBRAMYCIN) 100 mg capsule Take 1 capsule by mouth two times a day for 7 days. FAMILY HISTORY Problem Relation Age of Onset Prostate Cancer Father Coronary Artery Disease Father late in life; enlarged heart; smoked Heart Mother valve, age 81 Colon Can (more content not included)... Normal [facility] CNOVon 03-18-2025 [facility] ROMAN [facility]N ([id number]) 1950 F Date Time Provider Department 03/18/25 3:00 PM PEPE REYES [facility] During your visit today, we recorded the following information about you: Pulse Respiration Blood pressure Weight 88/minute 16/minute 124/70 56.2 kg Pepe Reyes MD 03/18/2025 4:55 PM Signed Chief Complaint Patient presents with: 6 Month Exam Immunizations: Flu vaccination Recording using [employer] software for draft documentation of the visit was discussed with the patient/authorized paper sales representative; all questions welcomed and answered. Patient/authorized paper sales representative agreed to proceed HPI Roman Kuhn is a 74 year old female who presents here today for 6 month follow up. Smokes 1 ppd. She has attempted smoking cessation in the past, including acupuncture 2 years ago, hypnosis, and pharmacotherapy, but has been unsuccessful. She expresses a lack of interest in quitting smoking at this time. No urinary concerns. Has chronic bowel and GI issues. Chronic hx IBS. Has found that taking Miralax BID, Benefiber, Protonix 40 mg once daily, Pepcid 20 mg once daily and Colestid 1 gram daily. Did start taking a daily Probiotic helps the bowels. Lipid/glucose: Watches her diet. Exercising 15 minutes of stretching per day. Taking Pravastatin 40 mg daily. Thyroid: Taking synthroid 125 mcg daily, feels okay on this dosage. No missed dosages. Increased form 112 mcg last visit due to TSH of 4.79. Issues with sacroiliac joint and following with Chiropractor and went through their program. Does 15 minutes of stretching every morning. Follows with Nimo Morrison. Uses Prevagin daily for memory. Past medical history, appointments, medications, allergies reviewed. Previous Medical History PAST MEDICAL HISTORY Diagnosis Date Abdominal pain, epigastric Allergic rhinitis, cause unspecified Allergic rhinitis Esophageal reflux Bile reflux gastritis IBS (irritable bowel syndrome) constipation primarily Other and unspecified hyperlipidemia Unspecified hypothyroidism Previous Surgical History PAST SURGICAL HISTORY Procedure Laterality Date ABDOMINAL SURGERY HX BIOPSY BREAST OPEN INCISIONAL 08/14/2017 left stereotactic breast biopsy w/clip placement [facility] COLONOSCOPY N/A 09/17/2024 COLONOSCOPY FLX DX W/COLLJ SPEC WHEN PFRMD 12/18/2003 Colonoscopy COLONOSCOPY FLX DX W/COLLJ SPEC WHEN PFRMD 03/11/2008 Colonoscopy COLONOSCOPY FLX DX W/COLLJ SPEC WHEN PFRMD 07/19/2012 Colonoscopy COLONOSCOPY FLX DX W/COLLJ SPEC WHEN PFRMD 11/13/2018 Colonoscopy COSMETIC ASSESSMENT EGD 09/01/2020 EGD W/O [facility] SPEC VARICIES INJ N/A 09/17/2024 ESOPHAGOGASTRODUODENOSCOPY TRANSORAL DIAGNOSTIC 03/12/2012 EGD ESOPHAGOGASTRODUODENOSCOPY TRANSORAL DIAGNOSTIC 11/13/2018 EGD EYE SURGERY HX LAPS SURG CHOLECYSTECTOMY W/CHOLANGIOGRAPHY 04/17/2012 Normal IOC PAST SURGICAL HISTORY OF hemmorhoidectomy PAST SURGICAL HISTORY OF 1969 ventral hernia repair - [place] - unknown for mesh PAST SURGICAL HISTORY OF age 27 partial hysterectomy PAST SURGICAL HISTORY OF 1998 benign breast bx PAST SURGICAL HISTORY OF 07/2002 lasik eye surgery PAST SURGICAL HISTORY OF 07/2006 recheck and enhancement on eye surgery PAST SURGICAL HISTORY OF Bilateral 2018 OD - 08/21, OS - 09/[address] Stock. Cataract implants RHINP PRIM LATANDALAR CRTLGSAND/ELVTN NASAL TI Rhinoplasty x 2 VAGINAL HYSTERECTOMY Family History FAMILY HISTORY Problem Relation Age of Onset Prostate Cancer Father Coronary Artery Disease Father late in life; enlarged heart; smoked Heart Mother valve, age 81 Colon Cancer Other none Diabetes Other none Patient Allergies ALLERGIES Allergen Reactions Ceclor [Cefaclor] ER for anaphylaxis Avelox [Moxifloxaci* Intolerance Bactrim [Sulfametho* Unknown Insides were raging Biaxin [Clarithromy* Celexa [Citalopram * Unknown Cipro [Ciprofloxaci* Entex [Phenylephrin* Erythromycin Levsinex [Hyoscyami* Lipitor [Atorvastat* Naldecon Senior Dx * Parafon Forte Dsc [* Paxil [Paroxetine H* Sulfa (Sulfonamide * Other: See Comments Suprax [Cefixime] Urispas [Flavoxate * Voltaren [Diclofena* Current Medications Current Outpatient Medications on File Prior to Visit Medication Sig doxycycline hyclate (VIBRAMYCIN) 100 mg capsule Take 1 capsule by mouth two times a day for 10 days. colestipol (COLESTID) 1 gram tablet Take 1 tablet by mouth two times a day. pravastatin (PRAVACHOL) 40 mg tablet Take 1 tablet by mouth once daily. famotidine (PEPCID) 20 mg tablet Take 1 tablet by mouth once daily. Taking 2 tablets by mouth once daily before bedtime. pantoprazole DR (PROTONIX) 40 mg tablet Take 1 tablet by mouth two times a day. Take on empty stomach, 1/2 hr before meal. levothyroxine (SYNTHROID) 125 mcg tablet Take 1 tablet by m (more content not included)... Normal [facility] CBC panel Auto (Bld)on 03-08 Erythrocyte distribution width (RBC) [Ratio] 13.9 % Normal 11.5-15.0 [facility] Comment on above: Order Comment: Speci men Type: BLOOD SPECIMENOrdering Facility: [facility] Address: [address] [place] [address] Performed By: #### 5 8410-2 ####[facility] LABCLIA [id number] [address] [place] Hematocrit (Bld) [Volume fraction] 41.6 % Normal 36.0-46.0 [facility] Comment on above: Order Comment: Speci men Type: BLOOD SPECIMENOrdering Facility: [facility] Address: [address] [place] [address] Performed By: #### 5 8410-2 ####[facility] LABCLIA [id number] [place] [address] [place] Hemoglobin (Bld) [Mass/Vol] 14.2 g/dL Normal 11.5-15.5 [facility] Comment on above: Order Comment: Speci men Type: BLOOD SPECIMENOrdering Facility: [facility] Address: [address] [place] [address] Performed By: #### 5 8410-2 ####[facility] LABIA [id number] [place] [address] [place] MCH (RBC) [Entitic mass] 33.3 pg Normal 26.0-34.0 [facility] Comment on above: Order Comment: Speci men Type: BLOOD SPECIMENOrdering Facility: [facility] Address: [address] [place] [address] Performed By: #### 5 8410-2 ####[facility] LABIA [id number] [address] [place] MCHC (RBC) [Mass/Vol] 34.1 g/dL Normal 30.5-36.0 [facility] Comment on above: Order Comment: Speci men Type: BLOOD SPECIMENOrdering Facility: [facility] Address: [address] [place] [address] Performed By: #### 5 8410-2 ####[facility] LABIA [id number] [place] [address] [place] MCV (RBC) [Entitic vol] 97.7 fL Normal 80.0-100.0 [facility] Comment on above: Order Comment: Speci men Type: BLOOD SPECIMENOrdering Facility: [facility] Address: [address] [place] [address] Performed By: #### 5 8410-2 ####[facility] LABIA [id number] [place] [address] [place] Nucleated RBC (Bld) [#/Vol] 10*3/uL Normal <0.01 [facility] Comment on above: Order Comment: Speci men Type: BLOOD SPECIMENOrdering Facility: [facility] Address: [address] [place] [address] Performed By: #### 5 8410-2 ####[facility] LABIA [id number] [place] [address] [place] Platelet mean volume (Bld) [Entitic vol] 9.8 fL Normal 9.0-12.7 [facility] Comment on above: Order Comment: Speci men Type: BLOOD SPECIMENOrdering Facility: [facility] Address: [address] [place] [address] Performed By: #### 5 8410-2 ####[facility] LABIA [id number] [place] [address] [place] Platelets (Bld) [#/Vol] 298 10*3/uL Normal 150-400 [facility] Comment on above: Order Comment: Speci men Type: BLOOD SPECIMENOrdering Facility: [facility] Address: [address] [place] [address] Performed By: #### 5 8410-2 ####[facility] LABIA [id number] [place] [address] [place] RBC (Bld) [#/Vol] 4.26 10*6/uL Normal 3.90-5.20 [facility] Comment on above: Order Comment: Speci men Type: BLOOD SPECIMENOrdering Facility: [facility] Address: [address] [place] [address] Performed By: #### 5 8410-2 ####[facility] LABIA [id number] [place] [address] [place] WBC (Bld) [#/Vol] 8.20 10*3/uL Normal 3.70-11.00 [facility] Comment on above: Order Comment: Speci men Type: BLOOD SPECIMENOrdering Facility: [facility] Address: [address] [place] [address] Performed By: #### 5 8410-2 ####[facility] LABCLIA [id number] [place] [id number] [place] Comprehensive metabolic 2000 panelon 03-08-2025 Albumin [Mass/Vol] 4.3 g/dL Normal 3.9-4.9 [facility] Comment on above: Order Comment: Speci men Type: BLOOD SPECIMENOrdering Facility: [facility] Address: [address] [place] [address] Performed By: #### 3 016-3, 77530-6, 17422-3 ####[facility] LABIA [id number] [place] [address] [place] ALP [Catalytic activity/Vol] 67 U/L Normal 34-123 [facility] Comment on above: Order Comment: Speci men Type: BLOOD SPECIMENOrdering Facility: [facility] Address: [address] [place] [address] Performed By: #### 3 016-3, 08505-1, 77651-1 ####[facility] LABIA [id number] [place] [address] [place] ALT [Catalytic activity/Vol] 18 U/L Normal 7-38 [facility] Comment on above: Order Comment: Speci men Type: BLOOD SPECIMENOrdering Facility: [facility] Address: [address] [place] [address] Performed By: #### 3 016-3, 10199-8, 24072-4 ####[facility] LABIA [id number] [place] [id number] [place] Anion gap [Moles/Vol] 11 mmol/L Normal 8-15 [facility] Comment on above: Order Comment: Speci men Type: BLOOD SPECIMENOrdering Facility: [facility] Address: [address] [place] [address] Performed By: #### 3 016-3, 43068-4, 84971-7 ####[facility] LABCLIA [id number] [address] [address] [place] AST [Catalytic activity/Vol] 24 U/L Normal 13-35 [facility] Comment on above: Order Comment: Speci men Type: BLOOD SPECIMENOrdering Facility: [facility] Address: [address] [place] [address] Performed By: #### 3 016-3, , ####[facility] LABCLIA [id number] [address] [address] [place] Bilirubin [Mass/Vol] 0.4 mg/dL Normal 0.2-1.3 [facility] Comment on above: Order Comment: Speci men Type: BLOOD SPECIMENOrdering Facility: [facility] Address: [address] [place] [address] Performed By: #### 3 016-3, , ####[facility] LABCLIA [id number] [address] [address] [place] Calcium [Mass/Vol] 9.6 mg/dL Normal 8.5-10.2 [facility] Comment on above: Order Comment: Speci men Type: BLOOD SPECIMENOrdering Facility: [facility] Address: [address] [place] [address] Performed By: #### 3 016-3, , ####[facility] LABCLIA [id number] [address] [address] [place] Chloride [Moles/Vol] 105 mmol/L Normal 98-107 [facility] Comment on above: Order Comment: Speci men Type: BLOOD SPECIMENOrdering Facility: [facility] Address: [address] [place], [place] [address] Performed By: #### 3 016-3, 67242-7, 80926-2 ####[facility] LABCLIA [id number] [place] [address] [place] CO2 [Moles/Vol] 25 mmol/L Normal 22-30 [facility] Comment on above: Order Comment: Annalisa shah Type: BLOOD SPECIMENOrdering Facility: [facility] Address: [address] [place] [address] Performed By: #### 3 016-3, 93487-4, 61551-5 ####[facility] LABCLIA [id number] [place] [address] [place] Creatinine [Mass/Vol] 0.72 mg/dL Normal 0.58-0.96 [facility] Comment on above: Order Comment: Annalisa shah Type: BLOOD SPECIMENOrdering Facility: [facility] Address: [address] [place] [address] Performed By: #### 3 016-3, 69134-8, ####[facility] [id number] [place] [address] [place] eGFRcr SerPlBld CKD-EPI 2020 87 mL/min/1.73m??? Normal >=60 [facility] Comment on above: Order Comment: Annalisa shah Type: BLOOD SPECIMENOrdering Facility: [facility] Address: [address] [place] [address] Result Comment: Rossy mated Glomerular Filtration Rate (eGFR) is calculated using the 2020 CKD-EPI creatinine equation. This equation utilizes serum creatinine, sex, and age as parameters. The creatinine assay has traceable calibration to isotope dilution-mass spectrometry. Refer to KDIGO guidelines for clinical interpretation. In patients with unstable renal function, e.g. those with acute kidney injury, the eGFR may not accurately reflect actual GFR. Performed By: #### 3 016-3, 67767-6, 96528-0 ####[facility] LABCLIA [id number] [address] [address] [place] Glucose [Mass/Vol] 103 mg/dL High 74-99 [facility] Comment on above: Order Comment: Speci men Type: BLOOD SPECIMENOrdering Facility: [facility] Address: [address] [place] [address] Result Comment: The [place] Diabetes Association (ADA) provides guidance for cutoff values for fasting glucose and random glucose. The ADA defines fasting as no caloric intake for at least 8 hours. Fasting plasma glucose results between 100 to 125 mg/dL indicate increased risk for diabetes (prediabetes). Fasting plasma glucose results greater than or equal to 126 mg/dL meet the criteria for diagnosis of diabetes. In the absence of unequivocal hyperglycemia, results should be confirmed by repeat testing. In a patient with classic symptoms of hyperglycemia or hyperglycemic crisis, random plasma glucose results greater than or equal to 200 mg/dL meet the criteria for diagnosis of diabetes. Reference: Standards of Medical Care in Diabetes 2016, [place] Diabetes Association. Diabetes Care. 2016.39(Suppl 1). Performed By: #### 3 016-3, 55560-2, 99541-6 ####[facility] LABCLIA [id number] [place] [address] [place] Potassium [Moles/Vol] 4.8 mmol/L Normal 3.7-5.1 [facility] Comment on above: Order Comment: Mynori men Type: BLOOD SPECIMENOrdering Facility: [facility] Address: [address] [place] [address] Performed By: #### 3 016-3, 35526-2, 38586-6 ####[facility] LABCLIA [id number] [place] [id number] [place] Protein [Mass/Vol] 6.5 g/dL Normal 6.3-8.0 [facility] Comment on above: Order Comment: Mynori men Type: BLOOD SPECIMENOrdering Facility: [facility] Address: [address] [place] [address] Performed By: #### 3 016-3, 44270-9, 42613-5 ####[facility] LABCLIA [id number] [facility] [address] [address] [place] Sodium [Moles/Vol] 141 mmol/L Normal 136-144 [facility] Comment on above: Order Comment: Annalisa men Type: BLOOD SPECIMENOrdering Facility: [facility] Address: [address] [place] [address] Performed By: #### 3 016-3, 60680-3, 87711-1 ####[facility] LABCLIA [id number] [place] [address] [place] Urea nitrogen [Mass/Vol] 14 mg/dL Normal 7-21 [facility] Comment on above: Order Comment: Mynori men Type: BLOOD SPECIMENOrdering Facility: [facility] Address: [address] [place] [address] Performed By: #### 3 016-3, 23489-1, 95789-7 ####[facility] LABIA [id number] [place] [address] [place] HbA1c (Bld)on 03-08-2025 Average glucose Estimated from glycated hemoglobin (Bld) [Mass/Vol] 131 mg/dL Normal [facility] Comment on above: Order Comment: Annalisa [facility] Type: BLOOD SPECIMENOrdering Facility: [facility] Address: [address] [place] [address] Result Comment: eAG: (Estimated average glucose) is a calculated value from HgbA1c and is paper sales representative of the average blood glucose level in the last 2-3 month period. Performed By: #### 5 5454-3 ####[facility] LABIA [id number] [place] [address] [place] HbA1c (Bld) [Mass fraction] 6.2 % High 4.3-5.6 [facility] Comment on above: Order Comment: Annalisa alyssa Type: BLOOD SPECIMENOrdering Facility: [facility] Address: [address] [place] [address] Result Comment: Curt [place] Diabetes Association guidelines indicate that patients with HgbA1c in the range 5.7-6.4% are at increased risk for development of diabetes, and intervention by lifestyle modification may be beneficial. HgbA1c greater or equal to 6.5% is considered diagnostic of diabetes. Performed By: #### 5 5454-3 ####[facility] LABCLIA [id number] [place] [address] [place] [facility] [place] Lipid 1996 panelon 5 Cholesterol [Mass/Vol] 221 mg/dL High <200 [facility] Comment on above: Order Comment: Speci men Type: BLOOD SPECIMENOrdering Facility: [facility] Address: [address] [place] [address] Result Comment: <200 mg/dL, Desirable 200-239 mg/dL, Borderline high >239 mg/dL, High Performed By: #### 3 016-3, 15057-5, 45438-0 ####[facility] LABCLIA [id number] [address] Cholesterol in HDL [Mass/Vol] 73 mg/dL Normal >39 [facility] Comment on above: Order Comment: Mynori men Type: BLOOD SPECIMENOrdering Facility: [facility] Address: [address] [place] [address] Result Comment: 40-5 9 mg/dL, Acceptable >59 mg/dL, High: Negative risk factor for coronary heart disease <40 mg/dL, Low: Positive risk factor for coronary heart disease Performed By: #### 3 016-3, 36389-3, 79859-6 ####[facility] LABIA [id number] [address] [facility] Cholesterol in LDL [Mass/Vol] 130 mg/dL High <100 [facility] Comment on above: Order Comment: Mynori [facility] Type: BLOOD SPECIMENOrdering Facility: [facility] Address: [address] [place] [address] Result Comment: <100 mg/dL, Optimal 100-129 mg/dL, Near optimal/above optimal 130-159 mg/dL, Borderline high 160-189 mg/dL, High >189 mg/dL, Very high Secondary prevention optimal LDL Cholesterol levels are recommended to be <70 mg/dL LDL cholesterol is calculated using the Gamble-NIH equation. Performed By: #### 3 016-3, 10080-7, 27763-8 ####[facility] LABCLIA [id number] [address] [place] Cholesterol in LDL/Cholesterol in HDL [Mass ratio] 1.78 {ratio} Normal <2.54 [facility] Comment on above: Order Comment: Speci men Type: BLOOD SPECIMENOrdering Facility: [facility] Address: [address] [place] [address] Result Comment: Refe rence: 1. National Cholesterol Education Program ATP III Guideline At-A-Glance Quick Desk Reference: National Heart, Lung, and Blood [place]. National Institutes of Health. 2001: NIH Publication No. 01-3305. 2. An International Atherosclerosis Society position paper: global recommendations for the management of dyslipidemia: executive summary, Atherosclerosis. 2014: 232(2):410-413. Performed By: #### 3 016-3, 34143-1, 46827-8 ####[facility] LABCLIA [id number] [place] [id number] [place] Cholesterol in VLDL [Mass/Vol] 18 mg/dL Normal <30 [facility] Comment on above: Order Comment: Mynori men Type: BLOOD SPECIMENOrdering Facility: [facility] Address: [address] [place] [address] Performed By: #### 3 016-3, 61521-4, 74691-9 ####[facility] LABIA [id number] [place] [id number] [place] Cholesterol non HDL [Mass/Vol] 148 mg/dL High <130 [facility] Comment on above: Order Comment: Speci men Type: BLOOD SPECIMENOrdering Facility: [facility] Address: [address] [place] [address] Result Comment: <130 mg/dL, Optimal 130-159 mg/dL, Near optimal/above optimal 160-189 mg/dL, Borderline high 190-219 mg/dL, High >219 mg/dL, Very high Secondary prevention optimal non HDL Cholesterol levels are recommended to be <100 mg/dL Performed By: #### 3 016-3, 47649-7, 83035-4 ####[facility] LABCLIA [id number] [place] [address] [place] Cholesterol.total/Chol esterol in HDL [Mass ratio] 3.03 {ratio} Normal <5.10 [facility] Comment on above: Order Comment: Speci men Type: BLOOD SPECIMENOrdering Facility: [facility] Address: [address] [place] [address] Performed By: #### 3 016-3, 83203-3, 65747-2 ####[facility] LABIA [id number] [place] [address] [place] FASTING TIME 12 hrs Normal [facility] Comment on above: Order Comment: Speci men Type: BLOOD SPECIMENOrdering Facility: [facility] Address: [address] [place] [address] Performed By: #### 3 016-3, 05691-8, 61222-0 ####[facility] LABIA [id number] [place] [address] [place] Triglyceride [Mass/Vol] 101 mg/dL Normal <150 [facility] Comment on above: Order Comment: Speci men Type: BLOOD SPECIMENOrdering Facility: [facility] Address: [address] [place] [address] Result Comment: <150 mg/dL, Normal 150-199 mg/dL, Borderline high 200-499 mg/dL, High >499 mg/dL, Very high Performed By: #### 3 016-3, 98160-2, 96640-4 ####[facility] LABIA [id number] [place] [id number] [place] TSH SerPl-aCncon 03-08-2025 TSH Qn 15.900 m[IU]/L High 0.270-4.20 0 [facility] Comment on above: Order Comment: Speci men Type: BLOOD SPECIMENOrdering Facility: [facility] Address: [facility] [place] [address] Performed By: #### 3 016-3, 59411-3, 86739-3 ####[facility] LABCLIA [id number] [place] [address] [place] CNOVon 02-15-2025 CNOV Office Visit ([facility]) ROMAN KUHN ([id number]) 1950 F Date Time Provider Department 02/15/25 8:45 AM ROCHELLE BRICE During your visit today, we recorded the following information about you: Temperature Pulse Respiration Blood pressure 98.3 degrees 96/minute 18/minute 136/83 Weight 55 kg Rochelle Brice MD 02/15/2025 9:14 AM Signed Sinusitis You have been seen for a sinus infection. Sinus infections are common. They often happen after people have a virus or a common cold. Symptoms are: Pain in the face, green or yellow mucous from the nose, fever (temperature higher than 100.4?F / 38?C) and chills. There may also be a feeling of fullness or pressure in the face. Decongestants may be used to help the sinuses drain. Sometimes a steroid spray is used. You may need antibiotics for the infection. Not all cases of sinusitis need antibiotics. Viruses cause most sinusitis. Antibiotics do not work on viruses. Sometimes sinusitis and be caused by bacteria. These cases usually get better with medicine to help the sinuses drain. Antibiotics should be given only to patients who have symptoms for more than 2 weeks and if they have fever, severe sinus pain and pus mixed in with the mucus. YOU SHOULD SEEK MEDICAL ATTENTION IMMEDIATELY, EITHER HERE OR AT THE NEAREST EMERGENCY DEPARTMENT, IF ANY OF THE FOLLOWING OCCURS: You do not get better with treatment. You have severe headaches and high fever (temperature higher than 100.4?F / 38?C) or any confusion. You have worse pain in the face Your face gets more swollen Rochelle Brice MD 02/15/2025 9:21 AM Signed [facility] Subjective Roman Kuhn is a 74 year old female. Patient presents with: Cough: X10 days, no relief with albuterol inhaler Pt here with over 1 week hx of uri sx now post nasal drip sinsu pressure and a cough no fever no chills no dyspnea pt is a current smoker Cough Pertinent negatives include no chills and no shortness of breath. Review of Systems Constitutional: Positive for fatigue. Negative for chills and fever. HENT: Positive for congestion, postnasal drip, sinus pressure and sinus pain. Respiratory: Positive for cough and chest tightness. Negative for shortness of breath and stridor. Neurological: Negative for dizziness and light-headedness. Objective BP 136/83 Pulse 96 Temp 36.8 ?C (98.3 ?F) Resp 18 Wt 55 kg (121 lb 4.1 oz) SpO2 97% BMI 22.18 kg/m? Physical Exam Vitals and nursing note reviewed. Constitutional: Appearance: Normal appearance. She is not ill-appearing. HENT: Right Ear: Tympanic membrane and ear canal normal. Left Ear: Tympanic membrane and ear canal normal. Nose: Congestion and rhinorrhea present. Mouth/Throat: Mouth: Mucous membranes are moist. Pharynx: Oropharynx is clear. Cardiovascular: Rate and Rhythm: Normal rate and regular rhythm. Heart sounds: Normal heart sounds. Pulmonary: Effort: Pulmonary effort is normal. Breath sounds: Normal breath sounds. No stridor. No wheezing, rhonchi or rales. Neurological: Mental Status: She is alert and oriented to person, place, and time. Psychiatric: Mood and Affect: Mood normal. Behavior: Behavior normal. {ASSESSMENT/PLAN: 1. Acute non-recurrent sinusitis, unspecified location - ICD9: 461.9, ICD10: J01.90 (primary diagnosis) - DOXYCYCLINE HYCLATE 100 MG CAPSULE - PREDNISONE 20 MG TABLET 2. Acute bronchitis, unspecified organism - ICD9: 466.0, ICD10: J20.9 Return here for a chest xray if no better - DOXYCYCLINE HYCLATE 100 MG CAPSULE - PREDNISONE 20 MG TABLET Rochelle Brice MD History and Record Review External record(s) reviewed: prior outpatient record. Systemic symptoms present included: fatigue Differential Diagnoses - bronchitis , sinusitis is more likely for the following reason(s): suggested by HANDP - pneumonia is less likely for the following reason(s): o2 sat normal exam normal, HANDP not suggestive Disposition The patient was discharged. Procedures Allergies As of Date: 02/15/2025 Noted Allergy Reaction CECLOR (CEFACLOR) 04/27/2005 Comments: ER for anaphylaxis AVELOX (MOXIFLOXACIN HCL) 03/05/2010 5 - Intolerance BACTRIM (SULFAMETHOXAZOLE) 12/20/2012 16 - Unknown Comments: Insides were raging BIAXIN (CLARITHROMYCIN) 04/27/2005 CELEXA (CITALOPRAM HYDROBROMIDE) 05/16/2005 16 - Unknown CIPRO (CIPROFLOXACIN) 04/27/2005 ENTEX (PHENYLEPHRINE-GUAIFENESIN) 05/16/2005 ERYTHROMYCIN 04/27/2005 LEVSINEX (HYOSCYAMINE SULFATE) 05/16/2005 LIPITOR (ATORVASTATIN CALCIUM) 05/16/2005 NALDECON SENIOR DX (DEXTROMETHORP*04/27/2005 PARAFON FORTE DSC (CHLORZOXAZONE) 05/16/2005 PAXIL (PAROXETINE HCL) 05/16/2005 SULFA (SULFONAMIDE ANTIBIOTICS) 12/17/2012 14 - Other: See Comments SUPRAX (CEFIXIME) 04/27/2005 URISPAS (FLAVOXATE HCL) 05/16/2005 VOLTAREN (DICLOFENAC SODIUM (more content not included)... Normal [facility] CNOVon 02-10-2025 CNOV Office Visit (KYM ) ROMAN KUHN ([id number]) 1950 F Date Time Provider Department 02/10/25 10:00 AM BELINDA JASON During your visit today, we recorded the following information about you: Leeanne Montemayor MA 02/11/2025 10:51 AM Signed AMB ROOMING INTAKE FLOWSHEET DATA Pain Pain Level: 5 Pain Location: Knee-Left Description: Sharp Duration Amount of Time: (ongoing) Frequency: Intermittent Intervention/Comfort measure: Other: See comment (muscle rub) Belinda Jason PA-C 02/11/2025 10:51 AM Signed Belinda Jason PA-C Department of Orthopaedics Orthopaedics [address] [facility] [address] Dept: [phone] Dept February 10, 2025 CHIEF COMPLAINT: Follow Up of the Left Knee and Follow Up of the Right Knee Mrs. Roman Kuhn is a 74 year old female who presents today requesting a left knee corticosteroid injection, last bilateral knee corticosteroid injections were 16 weeks ago, right knee is still feeling good, left knee is starting to become somewhat tender medially. She is requesting a repeat left knee injection. Scheduled for viscosupplementation this coming April in both knees. She is also complaining of pain in her right shoulder, pain is mostly lateral. She does see a chiropractor for the shoulder, she reports that the shoulder had been put back into place. But is still bothering her a bit. She has full and active range of motion in the shoulder but notes some tightness with reaching overhead. She has not had any recent x-rays of the shoulder. Denies any new injuries to the shoulder. 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 She does have some old x-rays of the shoulder from 2018 showing calcific tendinitis of the right rotator cuff. We discussed getting some updated x-rays today. Will proceed with a right shoulder subacromial corticosteroid injection today as well. Will continue to monitor patient for Calcific tendinitis of right shoulder (primary encounter diagnosis) Primary osteoarthritis of left knee, patient to schedule visit as per follow up discussed. Mrs. Roman Kuhn was advised as to contrast therapies and/or to take analgesics/anti-inflammatori es as needed and all contraindications were reviewed. OBJECTIVE: Mrs. Roman Kuhn is a pleasant 74 year old in no apparent distress. Gen:There were no vitals taken for this visit. nl development, non obese, no deformities ENT: Normocephalic, normal hearing, moist mucosa CV: Pulses:Radial= 2+ and symmetric, capillary refill < 2 secs, no peripheral edema/varicosities Skin: no rash, bruising or lesions. Good turgor. Psych: cooperative and appropriate, alert and oriented x 3, good mood and affect. Musculoskeletal: Supple range of motion of the cervical spine without pain. Spurling signs are negative. No atrophy of the deltoid and shoulder musculature. Right shoulder is nontender to palpation over the SC joint, clavicle and AC joint. No tenderness to palpation over the posterior shoulder, mildly tender at anterior lateral corner of the shoulder and greater tuberosity. Nontender at the bicipital groove and coracoid. Active range of motion is 155 degrees of forward elevation, 45 degrees external rotation, and internal rotation to the low lumbar spine. Passive range of motion is 155 degrees, 50 degrees, respectively. No laxity with anterior and posterior stress. Positive Neer and negative Nevarez impingement signs. 5/5 strength with supraspinatus, infraspinatus and subscapularis. Sensation is intact in the axillary, radial, median and ulnar nerve distribution In addition to the comprehensive evaluation, assessment and plan outlined above, and as a distinct and separate element to the visit today, separate from the separate complaint of right shoulder pain, we have made the determination to proceed with an injection to aid in the management of the patient's condition. We discussed the risks, benefits, alternatives and expected outcomes of this injection in detail, and the patient agreed to proceed. The procedure was performed as detailed below. Large Joint Arthro/Inj: L knee joint 02/10/2025 11:14 AM The procedure site was prepped in the usual sterile fashion. Site: L knee joint Medications: 6 mg betamethasone acetate-betamethasone sodium phosphate 6 mg/mL Anesthetics: 5 mL lidocaine (PF) 10 mg/mL (1 %) Outcome: Tolerated well, no immediate complications Post-injection instructions were reviewed with the patient and the patient voiced understanding of these instructions. Informed Consent Consent Obtained: Verbal [place] Protocol A moment to CARE was completed. SIGN IN Si (more content not included)... Normal [facility] Large Joint Arthro/Inj: L kn ee jointon 02-10-2025 Belinda Jason PA -C 02/11/2025 10:51 AM Large Joint Arthro/Inj: L knee joint 02/10/2025 11:14 AM The procedure site was prepped in the usual sterile fashion. Site: L knee joint Medications: 6 mg betamethasone acetate-betamethasone sodium phosphate 6 mg/mL Anesthetics: 5 mL lidocaine (PF) 10 mg/mL (1 %) Outcome: Tolerated well, no immediate complications Post-injection instructions were reviewed with the patient and the patient voiced understanding of these instructions. Informed Consent Consent Obtained: Verbal [place] Protocol A moment to CARE was completed. SIGN IN Sign in communication not applicable due to emergent procedure. Personnel directly involved with the procedure wore the appropriate PPE. Special Equipment: N/A Patient/Surrogate Stated/Verified: Patient name, Date of , Relevant allergies and Intended procedure TIME OUT Relevant labs, photos, and/or imaging studies have been reviewed. Consent documented and matches the intended procedure. Correct side/site marked and visible. Medications required for procedure verified. No fire risk assessment and interventions applicable. No implant(s) inserted. SIGN OUT No specimen collected. All instruments, equipment, possible retained foreign bodies accounted for. No post-procedure POC communication to the patient's multidisciplinary team (including the bedside nurse for hospitalized patients) applicable. [facility] Large Joint Arthro/Inj: R aguilar bacromial bursaon 02-10-2025 Belinda Jason PA -C 02/11/2025 10:51 AM Large Joint Arthro/Inj: R subacromial bursa 02/10/2025 11:15 AM The procedure site was prepped in the usual sterile fashion. Site: R subacromial bursa Medications: 6 mg betamethasone acetate-betamethasone sodium phosphate 6 mg/mL Anesthetics: 5 mL lidocaine (PF) 10 mg/mL (1 %) Outcome: Tolerated well, no immediate complications Post-injection instructions were reviewed with the patient and the patient voiced understanding of these instructions. Informed Consent Consent Obtained: Verbal [place] Protocol A moment to CARE was completed. SIGN IN Sign in communication not applicable due to emergent procedure. Personnel directly involved with the procedure wore the appropriate PPE. Special Equipment: N/A Patient/Surrogate Stated/Verified: Patient name, Date of , Relevant allergies and Intended procedure TIME OUT Relevant labs, photos, and/or imaging studies have been reviewed. Consent documented and matches the intended procedure. Correct side/site marked and visible. Medications required for procedure verified. No fire risk assessment and interventions applicable. No implant(s) inserted. SIGN OUT No specimen collected. All instruments, equipment, possible retained foreign bodies accounted for. No post-procedure POC communication to the patient's multidisciplinary team (including the bedside nurse for hospitalized patients) applicable. [facility] XR SHOULDER 2V AP/TRUE AP RT on 02-10-2025 XR SHOULDER 2V AP/TRUE AP RT * * *Final Report* * * DATE OF EXAM: Feb 10 2025 10:34AM [id number] - XR SHOULDER 2V AP/TRUE AP RT / PROCEDURE REASON: Shoulder impingement * * * * Physician Interpretation * * * * EXAMINATION / TECHNIQUE: XR SHOULDER 2V AP/TRUE AP RT HISTORY: PT STATES HISTORY OF RIGHT SHOULDER IMPINGEMENT Shoulder impingement COMPARISON: 06/15/2018. RESULT: No fracture or dislocation. Minimal glenohumeral and mild to moderate acromioclavicular osteoarthritis. Supraspinatus calcific tendinosis. No osseous erosion. IMPRESSION: Degenerative changes as described. Certified Medical Dosimetrist: PSCB Transcribe Date/Time: Feb 15 2025 7:36A Dictated by : SHERITA RUIZ MD This examination was interpreted and the report reviewed and electronically signed by: SHERITA RUIZ MD on Feb 15 2025 7:36AM EST [id number] Normal [facility] ([id number]) 1950 F Date Time Provider Department 12/26/24 TANGELA HINOJOSA During your visit today, we recorded the following information about you: Teri Rios RN 12/26/2024 8:31 AM Signed Pt calling in with update for Tangela Hinojosa. Pt saw her in the office this past Monday the for an insect bite on left nostril. Tangela put pt on antibiotics. Pt states the area is smaller but still hard and painful-looks like a boil. She feels it has improved some. Pt states she called and made an appt with [facility] for MondayDecember 31. That office is asking for office notes from pt's visit here on Monday. Printed AND faxed as requested to [phone]. Allergies As of Date: 12/26/2024 Noted Allergy Reaction CECLOR (CEFACLOR) 04/27/2005 Comments: ER for anaphylaxis AVELOX (MOXIFLOXACIN HCL) 03/05/2010 5 - Intolerance BACTRIM (SULFAMETHOXAZOLE) 12/20/2012 16 - Unknown Comments: Insides were raging BIAXIN (CLARITHROMYCIN) 04/27/2005 CELEXA (CITALOPRAM HYDROBROMIDE) 05/16/2005 16 - Unknown CIPRO (CIPROFLOXACIN) 04/27/2005 ENTEX (PHENYLEPHRINE-GUAIFENESIN) 05/16/2005 ERYTHROMYCIN 04/27/2005 LEVSINEX (HYOSCYAMINE SULFATE) 05/16/2005 LIPITOR (ATORVASTATIN CALCIUM) 05/16/2005 NALDECON SENIOR DX (DEXTROMETHORP*04/27/2005 PARAFON FORTE DSC (CHLORZOXAZONE) 05/16/2005 PAXIL (PAROXETINE HCL) 05/16/2005 SULFA (SULFONAMIDE ANTIBIOTICS) 12/17/2012 14 - Other: See Comments SUPRAX (CEFIXIME) 04/27/2005 URISPAS (FLAVOXATE HCL) 05/16/2005 VOLTAREN (DICLOFENAC SODIUM) 05/16/2005 Date Reviewed: 12/23/2024 Reviewed by: Helen Flores MA - Fully Assessed Reason for Visit: Patient Update [1234] Prescriptions as of 12/26/2024 - doxycycline monohydrate 100 mg tablet Take 1 tablet by mouth two times a day for 5 days. - famotidine (PEPCID) 20 mg tablet Take 1 tablet by mouth once daily. Taking 2 tablets by mouth once daily before bedtime. - colestipol (COLESTID) 1 gram tablet Take 1 tablet by mouth two times a day. - pantoprazole DR (PROTONIX) 40 mg tablet Take 1 tablet by mouth two times a day. Take on empty stomach, 1/2 hr before meal. - levothyroxine (SYNTHROID) 125 mcg tablet Take 1 tablet by mouth once daily. Take on empty stomach. For thyroid - albuterol HFA (VENTOLIN HFA) 90 mcg/actuation inhaler Inhale 2 Puffs as instructed every 6 hours as needed for wheezing/shortness of breath. - tretinoin (RETIN-A) 0.025 % topical cream Apply 1 application to affected area daily at bedtime. - pravastatin (PRAVACHOL) 40 mg tablet Take 1 tablet by mouth once daily. - BENEFIBER, WHEAT DEXTRIN, ORAL Take 2 teaspoonsful by mouth three times a day. - polyethylene glycol 3350 (MIRALAX, GLYCOLAX) 17 gram/dose powder Take 17 g by mouth twice daily. - triamcinolone acetonide (NASACORT) 55 mcg nasal inhaler Use 2 Sprays in the nose once daily. - aspirin(ECOTRIN LOW STRENGTH 81 MG TAB) Take one(1) tablet daily. - ONE DAILY MULTI-VITAMIN TAB Take one(1) tablet daily. Meds Comments as of 09/02/2024: Uses Benefiber daily with Miralax. Does take daily Probiotic. Problem List As Of Date 12/26/2024 Noted Resolved Hyperlipidemia [E78.5] Seasonal allergic rhinitis [J30.2] Esophageal Reflux [K21.9] Abdominal Pain, Generalized [R10.84] 12/19/2007 09/02/2009 Unspecified Constipation [K59.00] 09/02/2009 Abdominal Pain, Left Lower Quadrant [R10.32] 03/11/2008 09/02/2009 Diarrhea [R19.7] 03/11/2008 09/02/2009 Routine Gynecological Examination [Z01.419] 09/02/2009 Class: Chronic Hypothyroidism [E03.9] 09/07/2009 Osteopenia [M85.80] 11/24/2010 Abdominal pain, epigastric [R10.13] 03/12/2012 Acute gastritis without mention of hemorrhage [*03/12/2012 Nausea alone [R11.0] 03/12/2012 Biliary dyskinesia [K82.8] 03/29/2012 Abdominal pain, unspecified site [R10.9] 03/29/2012 Incisional hernia [K43.2] 03/29/2012 Irritable bowel [K58.9] 12/17/2013 Viral URI [J06.9] 09/25/2019 Syncope and collapse [R55] 12/22/2017 Diagnosed: 06/22/2023 Encounter Status:Closed by TANGELA HINOJOSA on 12/26/24 [facility] CNOVon 12-23-2024 CNOV Office Visit (FAMPWS ) ROMAN KUHN ([id number]) 1950 Date Time Provider Department 12/23/24 10:20 AM [facility] During your visit today, we recorded the following information about you: Pulse Blood pressure Weight 116/minute 123/74 55 kg Tangela Hinojosa, CARDIOPULMONARY SPECIALIST.[facility] 12/23/2024 10:10 AM Signed Chief Complaint Patient presents with: Insect Bite: X 4 days on left side of nose HPI Roman Penatt is a 74 year old female who presents here today for Above Complaints.. Patient presents for insect bite to left nostril. Reports she was bit Monday night and area has gotten hard, warm and swollen. Past medical history, appointments, medications, allergies reviewed. Previous Medical History PAST MEDICAL HISTORY Diagnosis Date Abdominal pain, epigastric Allergic rhinitis, cause unspecified Allergic rhinitis Esophageal reflux Bile reflux gastritis IBS (irritable bowel syndrome) constipation primarily Other and unspecified hyperlipidemia Unspecified hypothyroidism Previous Surgical History PAST SURGICAL HISTORY Procedure Laterality Date ABDOMINAL SURGERY HX BIOPSY BREAST OPEN INCISIONAL 08/14/2017 left stereotactic breast biopsy w/clip placement [facility] COLONOSCOPY N/A 09/17/2024 COLONOSCOPY FLX DX W/COLLJ SPEC WHEN PFRMD 12/18/2003 Colonoscopy COLONOSCOPY FLX DX W/COLLJ SPEC WHEN PFRMD 03/11/2008 Colonoscopy COLONOSCOPY FLX DX W/COLLJ SPEC WHEN PFRMD 07/19/2012 Colonoscopy COLONOSCOPY FLX DX W/COLLJ SPEC WHEN PFRMD 11/13/2018 Colonoscopy COSMETIC ASSESSMENT EGD 09/01/2020 EGD W/O [facility] SPEC VARICIES INJ N/A 09/17/2024 ESOPHAGOGASTRODUODENOSCOPY TRANSORAL DIAGNOSTIC 03/12/2012 EGD ESOPHAGOGASTRODUODENOSCOPY TRANSORAL DIAGNOSTIC 11/13/2018 EGD EYE SURGERY HX LAPS SURG CHOLECYSTECTOMY W/CHOLANGIOGRAPHY 04/17/2012 Normal IOC PAST SURGICAL HISTORY OF hemmorhoidectomy PAST SURGICAL HISTORY OF 1969 ventral hernia repair - [place] - unknown for mesh PAST SURGICAL HISTORY OF age 27 partial hysterectomy PAST SURGICAL HISTORY OF 1998 benign breast bx PAST SURGICAL HISTORY OF 07/2002 lasik eye surgery PAST SURGICAL HISTORY OF 07/2006 recheck and enhancement on eye surgery PAST SURGICAL HISTORY OF Bilateral 2019 OD - 08/21, OS - 09/[address] Stock. Cataract implants RHINP PRIM LATANDALAR CRTLGSAND/ELVTN NASAL TI Rhinoplasty x 2 VAGINAL HYSTERECTOMY Family History FAMILY HISTORY Problem Relation Age of Onset Prostate Cancer Father Coronary Artery Disease Father late in life; enlarged heart; smoked Heart Mother valve, age 81 Colon Cancer Other none Diabetes Other none Patient Allergies ALLERGIES Allergen Reactions Ceclor [Cefaclor] ER for anaphylaxis Avelox [Moxifloxaci* Intolerance Bactrim [Sulfametho* Unknown Insides were raging Biaxin [Clarithromy* Celexa [Citalopram * Unknown Cipro [Ciprofloxaci* Entex [Phenylephrin* Erythromycin Levsinex [Hyoscyami* Lipitor [Atorvastat* Naldecon Senior Dx * Parafon Forte Dsc [* Paxil [Paroxetine H* Sulfa (Sulfonamide * Other: See Comments Suprax [Cefixime] Urispas [Flavoxate * Voltaren [Diclofena* Current Medications Current Outpatient Medications on File Prior to Visit Medication Sig famotidine (PEPCID) 20 mg tablet Take 1 tablet by mouth once daily. Taking 2 tablets by mouth once daily before bedtime. colestipol (COLESTID) 1 gram tablet Take 1 tablet by mouth two times a day. pantoprazole DR (PROTONIX) 40 mg tablet Take 1 tablet by mouth two times a day. Take on empty stomach, 1/2 hr before meal. levothyroxine (SYNTHROID) 125 mcg tablet Take 1 tablet by mouth once daily. Take on empty stomach. For thyroid albuterol HFA (VENTOLIN HFA) 90 mcg/actuation inhaler Inhale 2 Puffs as instructed every 6 hours as needed for wheezing/shortness of breath. tretinoin (RETIN-A) 0.025 % topical cream Apply 1 application to affected area daily at bedtime. pravastatin (PRAVACHOL) 40 mg tablet Take 1 tablet by mouth once daily. BENEFIBER, WHEAT DEXTRIN, ORAL Take 2 teaspoonsful by mouth three times a day. polyethylene glycol 3350 (MIRALAX, GLYCOLAX) 17 gram/dose powder Take 17 g by mouth twice daily. triamcinolone acetonide (NASACORT) 55 mcg nasal inhaler Use 2 Sprays in the nose once daily. aspirin(ECOTRIN LOW STRENGTH 81 MG TAB) Take one(1) tablet daily. ONE DAILY MULTI-VITAMIN TAB Take one(1) tablet daily. No current facility-administered medications on file prior to visit. Social History Social History Tobacco Use Smoking status: Every Day Current packs/day: 0.75 Average packs/day: 0.8 packs/day for 56.0 years (42.0 ttl pk-yrs) Types: Cigarettes Smokeless tobacco: Never Vaping Use Vaping status: Never Used Substance Use Topics Alcohol use: Yes Comment: occasionally Drug use: No Review of Symptoms REVIEW OF SYSTEMS SEE HPI EXAM: B (more content not included)... Normal [facility] Gastroenterology Visit Repor ton 12-19-2024 Gastroenterology Visit Report [facility] [address] [place] [address] OFFICE VISIT Date of Service: 12/19/24 MR#: [id number] Acct: [id number] Name: ROMAN KUHN Rep #: [id number] : 1950 Provider: RYAN burns Age/Sex: 74/F [place] [facility] [place]: Signed Intake Vital Signs 11/14/24 08:45 Height 5 ft 3 in Weight: 124 lb BMI 21.9 Intake Visit Reasons: 5 wk FU Allergies citalopram (From Celexa) Allergy (Unknown, Verified 12/19/24 08:43) PT UNSURE OF REACTION clarithromycin (From Biaxin) Allergy (Unknown, Verified 12/19/24 08:43) PT UNABLE TO RESPOND-NEEDS F/U sulfamethoxazole (From Bactrim) Allergy (Unknown, Verified 12/19/24 08:43) PT UNSURE OF REACTION trimethoprim (From Bactrim) Allergy (Unknown, Verified 12/19/24 08:43) PT UNSURE OF REACTION atorvastatin (From Lipitor) Allergy (Verified 12/19/24 08:43) PT UNSURE OF REACTION cefixime (From Suprax) Allergy (Verified 12/19/24 08:43) PT UNABLE TO RESPOND-NEEDS F/U chlorzoxazone (From Parafon Forte) Allergy (Verified 12/19/24 08:43) PT UNSURE OF REACTION ciprofloxacin (From Cipro) Allergy (Verified 12/19/24 08:43) PT UNABLE TO RESPOND-NEEDS F/U diclofenac (From Voltaren) Allergy (Verified 12/19/24 08:43) PT UNABLE TO RESPOND-NEEDS F/U flavoxate (From Urispas) Allergy (Verified 12/19/24 08:43) PT UNABLE TO RESPOND-NEEDS F/U guaifenesin (From Entex [place]) Allergy (Verified 12/19/24 08:43) PT UNABLE TO RESPOND-NEEDS F/U hyoscyamine (From Levsinex) Allergy (Verified 12/19/24 08:43) PT UNSURE OF REACTION moxifloxacin (From Avelox) Allergy (Verified 12/19/24 08:43) PT UNSURE OF REACTION paroxetine (From Paxil) Allergy (Verified 12/19/24 08:43) PT UNSURE OF REACTION phenylephrine (From Entex LA) Allergy (Verified 12/19/24 08:43) PT UNABLE TO RESPOND-NEEDS F/U phenylpropanolamine (From Entex LA) Allergy (Verified 12/19/24 08:43) PT UNABLE TO RESPOND-NEEDS F/U Sulfa (Sulfonamide Antibiotics) Allergy (Verified 12/19/24 08:43) PT UNABLE TO RESPOND-NEEDS F/U Have you fallen in the past year?: No PFSH Medical History Hypothyroid Thyroid disease Arthritis High cholesterol History of IBS Smoker History of stress test IBS (irritable bowel syndrome) GERD (gastroesophageal reflux disease) Surgical History History of colonoscopy History of esophagogastroduodenoscopy (EGD) Status post panniculectomy ( 1980) History of cholecystectomy History of partial hysterectomy Social History Smoking Status: Current every day smoker tobacco type: cigarettes HPI HPI Details: ROMAN KUHN, is a 74 F who presents to the office today for FU. BGI established 06.27.24 Pt reports long history of IBS and GERD. Pt reports being on antibiotics and steroids in the past few weeks and feels this has exacerbated her symptoms. Pt reported daily use of miralax and benefiber, usually has a daily bm. Pt reports increased nausea with constipation. Pt states that she was told she has an extra 10 inches of intestines and wonders if this is affecting her digestion. MREnterography 2 No definite acute findings in the abdomen/pelvis. No gross bowel wall thickening or abnormal inflammatory changes in the abdomen/pelvis, to strongly suggest active inflammatory bowel disease. Solid organs of the abdomen are unremarkable except for a nonenhancing 2.1 cm intraparenchymal cyst posterior mid left kidney. No dedicated imaging follow-up recommended. No abdominal/pelvic adenopathy or ascites. EGD and Colonoscopy 09.17.24 EGD Normal esophagus. Bile gastritis. Biopsied. Normal second portion of the duodenum. Colonoscopy Preparation of the colon was poor. Diverticulosis in the recto-sigmoid colon, in the sigmoid colon and in the descending colon. Stool in the entire examined colon. No specimens collected. OV 4.24.25 Pt reports that she is feeling well overall and denies GI symptoms of concern at this time. Pt reports that she started a new probiotic in June, UltraFlora IB Probiotic, and has been feeling great ever since. Pt reports she is able to eat now and no longer feels bloated. OV 5.15.25 She reports burning from her mouth to her asshole everyday and is sick of it. She states that she taking her colestipol twice daily, if not four times on a bad day. She also states that she takes ALL of her medicines at once in the morning, including colestipol, famotidine, pantoprazole, levothyroxine. She does take her pravastatin at night. She reports fluffy floating stools 2 to 4 times daily and occasional firm formed stools. She denies difficulty chewing and swallowing, throat clearing, sinus drainage, hematochezia, and melena. She states that s (more content not included)... Normal [facility] CNOVon 11-15-2024 CNOV Office Visit (FAMPWS ) HATTIEROMAN GARCIA ([id number]) 1950 F Date Time Provider Department 11/15/24 4:20 PM [facility] During your visit today, we recorded the following information about you: Pulse Respiration Blood pressure Weight 92/minute 16/minute 120/72 55.8 kg Pepe Reyes MD 11/15/2024 4:53 PM Signed Chief Complaint Patient presents with: Follow Up HPI Roman Argueta Hattie is a 73 year old female who presents here today for follow up. Pt here to follow up on Bile/Reflux. This has been ongoing for 6 months with weight loss noted. Was going to cancel appt but thought she had to give a 24 hour notice. Wanted to f/u with findings from EGD, has bile reflux gastritis. Had EGD/Colonoscopy on 09/17/24. Colonoscopy had to be d/c due to poor prep. She follows with Gastro Dr. Friend at [facility]. Pt was able to f/u with GI, [facility] yesterday morning at 8:00 am, and they made some slight changes to her regimen. Was advised to start Pepcid 20 mg 2 tabs at bedtime before bed, Protonix 40 mg bid, and Colestipol 1 gram 1 tab po bid. They sent in a new Rx for her. Pt reports she started this regimen yesterday and woke up with her stomach feeling better. Burning from her throat to her bottom (butt) has improved. Asking if this is normal. Past medical history, appointments, medications, allergies reviewed. Previous Medical History PAST MEDICAL HISTORY Diagnosis Date Abdominal pain, epigastric Allergic rhinitis, cause unspecified Allergic rhinitis Esophageal reflux IBS (irritable bowel syndrome) constipation primarily Other and unspecified hyperlipidemia Unspecified hypothyroidism Previous Surgical History PAST SURGICAL HISTORY Procedure Laterality Date ABDOMINAL SURGERY HX BIOPSY BREAST OPEN INCISIONAL 08/14/2017 left stereotactic breast biopsy w/clip placement [facility] COLONOSCOPY FLX DX W/COLLJ SPEC WHEN PFRMD 12/18/2003 Colonoscopy COLONOSCOPY FLX DX W/COLLJ SPEC WHEN PFRMD 03/11/2008 Colonoscopy COLONOSCOPY FLX DX W/COLLJ SPEC WHEN PFRMD 07/19/2012 Colonoscopy COLONOSCOPY FLX DX W/COLLJ SPEC WHEN PFRMD 11/13/2018 Colonoscopy COSMETIC ASSESSMENT EGD 09/01/2020 ESOPHAGOGASTRODUODENOSCOPY TRANSORAL DIAGNOSTIC 03/12/2012 EGD ESOPHAGOGASTRODUODENOSCOPY TRANSORAL DIAGNOSTIC 11/13/2018 EGD EYE SURGERY HX LAPS SURG CHOLECYSTECTOMY W/CHOLANGIOGRAPHY 04/17/2012 Normal IOC PAST SURGICAL HISTORY OF hemmorhoidectomy PAST SURGICAL HISTORY OF 1969 ventral hernia repair - [place] - unknown for mesh PAST SURGICAL HISTORY OF age 27 partial hysterectomy PAST SURGICAL HISTORY OF 1998 benign breast bx PAST SURGICAL HISTORY OF 07/2002 lasik eye surgery PAST SURGICAL HISTORY OF 07/2006 recheck and enhancement on eye surgery PAST SURGICAL HISTORY OF Bilateral 2019 OD - 08/21, OS - 09/[address] Stock. Cataract implants RHINP PRIM LATANDALAR CRTLGSAND/ELVTN NASAL TI Rhinoplasty x 2 VAGINAL HYSTERECTOMY Family History FAMILY HISTORY Problem Relation Age of Onset Prostate Cancer Father Coronary Artery Disease Father late in life; enlarged heart; smoked Heart Mother valve, age 81 Colon Cancer Other none Diabetes Other none Patient Allergies ALLERGIES Allergen Reactions Ceclor [Cefaclor] ER for anaphylaxis Avelox [Moxifloxaci* Intolerance Bactrim [Sulfametho* Unknown Insides were raging Biaxin [Clarithromy* Celexa [Citalopram * Unknown Cipro [Ciprofloxaci* Entex [Phenylephrin* Erythromycin Levsinex [Hyoscyami* Lipitor [Atorvastat* Naldecon Senior Dx * Parafon Forte Dsc [* Paxil [Paroxetine H* Sulfa (Sulfonamide * Other: See Comments Suprax [Cefixime] Urispas [Flavoxate * Voltaren [Diclofena* Current Medications Current Outpatient Medications on File Prior to Visit Medication Sig famotidine (PEPCID) 20 mg tablet Take 1 tablet by mouth once daily. levothyroxine (SYNTHROID) 125 mcg tablet Take 1 tablet by mouth once daily. Take on empty stomach. For thyroid colestipol (COLESTID) 1 gram tablet Take 1 tablet by mouth once daily. pantoprazole DR (PROTONIX) 40 mg tablet Take 1 tablet by mouth daily before breakfast. Take on empty stomach, 1/2 hr before meal. albuterol HFA (VENTOLIN HFA) 90 mcg/actuation inhaler Inhale 2 Puffs as instructed every 6 hours as needed for wheezing/shortness of breath. tretinoin (RETIN-A) 0.025 % topical cream Apply 1 application to affected area daily at bedtime. pravastatin (PRAVACHOL) 40 mg tablet Take 1 tablet by mouth once daily. BENEFIBER, WHEAT DEXTRIN, ORAL Take 2 teaspoonsful by mouth three times a day. polyethylene glycol 3350 (MIRALAX, GLYCOLAX) 17 gram/dose powder Take 17 g by mouth twice daily. triamcinolone acetonide (NASACORT) 55 mcg nasal inhaler Use 2 Sprays in the nose once daily. aspirin(ECOTRIN LOW STRENGTH 81 MG TAB) Take one(1) tablet daily. ONE DAILY MULTI-VITAMIN (more content not included)... Normal [facility] Gastroenterology Visit Repor ton 11-14-2024 Gastroenterology Visit Report [facility] Gastroenterology [address] [place] [address] OFFICE VISIT Date of Service: 11/14/24 MR#: [id number] Acct: [id number] Name: ROMAN KUHN Rep #: [id number] : 1950 Provider: RYAN burns Age/Sex: 73/F Location: [facility] [place] Status: Signed Intake Vital Signs 09/17/24 12:49 11/14/24 08:45 Height 5 ft 3 in 5 ft 3 in Weight: 124 lb BMI 21.9 Intake Visit Reasons: Follow up everything is on fire Allergies citalopram (From Celexa) Allergy (Unknown, Verified 11/14/24 08:53) PT UNSURE OF REACTION clarithromycin (From Biaxin) Allergy (Unknown, Verified 11/14/24 08:53) PT UNABLE TO RESPOND-NEEDS F/U sulfamethoxazole (From Bactrim) Allergy (Unknown, Verified 11/14/24 08:53) PT UNSURE OF REACTION trimethoprim (From Bactrim) Allergy (Unknown, Verified 11/14/24 08:53) PT UNSURE OF REACTION atorvastatin (From Lipitor) Allergy (Verified 11/14/24 08:53) PT UNSURE OF REACTION cefixime (From Suprax) Allergy (Verified 11/14/24 08:53) PT UNABLE TO RESPOND-NEEDS F/U chlorzoxazone (From Parafon Forte) Allergy (Verified 11/14/24 08:53) PT UNSURE OF REACTION ciprofloxacin (From Cipro) Allergy (Verified 11/14/24 08:53) PT UNABLE TO RESPOND-NEEDS F/U diclofenac (From Voltaren) Allergy (Verified 11/14/24 08:53) PT UNABLE TO RESPOND-NEEDS F/U flavoxate (From Urispas) Allergy (Verified 11/14/24 08:53) PT UNABLE TO RESPOND-NEEDS F/U guaifenesin (From Entex LA) Allergy (Verified 11/14/24 08:53) PT UNABLE TO RESPOND-NEEDS F/U hyoscyamine (From Levsinex) Allergy (Verified 11/14/24 08:53) PT UNSURE OF REACTION moxifloxacin (From Avelox) Allergy (Verified 11/14/24 08:53) PT UNSURE OF REACTION paroxetine (From Paxil) Allergy (Verified 11/14/24 08:53) PT UNSURE OF REACTION phenylephrine (From Entex LA) Allergy (Verified 11/14/24 08:53) PT UNABLE TO RESPOND-NEEDS F/U phenylpropanolamine (From Entex LA) Allergy (Verified 11/14/24 08:53) PT UNABLE TO RESPOND-NEEDS F/U Sulfa (Sulfonamide Antibiotics) Allergy (Verified 11/14/24 08:53) PT UNABLE TO RESPOND-NEEDS F/U Have you fallen in the past year?: No PFSH Medical History Hypothyroid Thyroid disease Arthritis High cholesterol History of IBS Smoker History of stress test IBS (irritable bowel syndrome) GERD (gastroesophageal reflux disease) Surgical History History of colonoscopy History of esophagogastroduodenoscopy (EGD) Status post panniculectomy ( 1980) History of cholecystectomy History of partial hysterectomy Social History Smoking Status: Current every day smoker tobacco type: cigarettes HPI HPI Details: ROMAN KUHN, is a 73 F who presents to the office today for FU. BGI established 06.27.24 Pt reports long history of IBS and GERD. Pt reports being on antibiotics and steroids in the past few weeks and feels this has exacerbated her symptoms. Pt reported daily use of miralax and benefiber, usually has a daily bm. Pt reports increased nausea with constipation. Pt states that she was told she has an extra 10 inches of intestines and wonders if this is affecting her digestion. MREnterography 08.15.24 No definite acute findings in the abdomen/pelvis. No gross bowel wall thickening or abnormal inflammatory changes in the abdomen/pelvis, to strongly suggest active inflammatory bowel disease. Solid organs of the abdomen are unremarkable except for a nonenhancing 2.1 cm intraparenchymal cyst posterior mid left kidney. No dedicated imaging follow-up recommended. No abdominal/pelvic adenopathy or ascites. EGD and Colonoscopy 09.17.24 EGD Normal esophagus. Bile gastritis. Biopsied. Normal second portion of the duodenum. Colonoscopy Preparation of the colon was poor. Diverticulosis in the recto-sigmoid colon, in the sigmoid colon and in the descending colon. Stool in the entire examined colon. No specimens collected. OV 4.24.25 Pt reports that she is feeling well overall and denies GI symptoms of concern at this time. Pt reports that she started a new probiotic in June, UltraFlora IB Probiotic, and has been feeling great ever since. Pt reports she is able to eat now and no longer feels bloated. OV 5.15.25 She reports burning from her mouth to her asshole everyday and is sick of it. She states that she taking her colestipol twice daily, if not four times on a bad day. She also states that she takes ALL of her medicines at once in the morning, including colestipol, famotidine, pantoprazole, levothyroxine. She does take her pravastatin at night. She reports fluffy floating stools 2 to 4 times daily and occasional firm formed stools. She denies difficulty chewing and swallowing, throat clearing, sinus draina (more content not included)... Normal [facility] Gastroenterology Visit Repor ton 10-24-2024 Gastroenterology Visit Report [facility] Gastroenterology [address] [place] [address] OFFICE VISIT Date of Service: 10/24/24 MR#: [id number] Acct: [id number] Name: ROMAN KUHN Rep #: [id number] : 1950 Provider: Chucky Woodall DO Age/Sex: 73/F Location: [facility] [place] Status: Signed Intake Vital Signs 09/17/24 12:49 Height 5 ft 3 in Intake Visit Reasons: follow up Allergies citalopram (From Celexa) Allergy (Unknown, Verified 09/17/24 12:48) PT UNSURE OF REACTION clarithromycin (From Biaxin) Allergy (Unknown, Verified 09/17/24 12:48) PT UNABLE TO RESPOND-NEEDS F/U sulfamethoxazole (From Bactrim) Allergy (Unknown, Verified 09/17/24 12:48) PT UNSURE OF REACTION trimethoprim (From Bactrim) Allergy (Unknown, Verified 09/17/24 12:48) PT UNSURE OF REACTION atorvastatin (From Lipitor) Allergy (Verified 09/17/24 12:48) PT UNSURE OF REACTION cefixime (From Suprax) Allergy (Verified 09/17/24 12:48) PT UNABLE TO RESPOND-NEEDS F/U chlorzoxazone (From Parafon Forte) Allergy (Verified 09/17/24 12:48) PT UNSURE OF REACTION ciprofloxacin (From Cipro) Allergy (Verified 09/17/24 12:48) PT UNABLE TO RESPOND-NEEDS F/U diclofenac (From Voltaren) Allergy (Verified 09/17/24 12:48) PT UNABLE TO RESPOND-NEEDS F/U flavoxate (From Urispas) Allergy (Verified 09/17/24 12:48) PT UNABLE TO RESPOND-NEEDS F/U guaifenesin (From Entex LA) Allergy (Verified 09/17/24 12:48) PT UNABLE TO RESPOND-NEEDS F/U hyoscyamine (From Levsinex) Allergy (Verified 09/17/24 12:48) PT UNSURE OF REACTION moxifloxacin (From Avelox) Allergy (Verified 09/17/24 12:48) PT UNSURE OF REACTION paroxetine (From Paxil) Allergy (Verified 09/17/24 12:48) PT UNSURE OF REACTION phenylephrine (From Entex LA) Allergy (Verified 09/17/24 12:48) PT UNABLE TO RESPOND-NEEDS F/U phenylpropanolamine (From Entex LA) Allergy (Verified 09/17/24 12:48) PT UNABLE TO RESPOND-NEEDS F/U Sulfa (Sulfonamide Antibiotics) Allergy (Verified 09/17/24 12:48) PT UNABLE TO RESPOND-NEEDS F/U Medications ???Medication ???Instructions ???Recorded ???Confirmed ???Type colestipol 1 gram tablet 1 g PO QDAY 06/27/24 10/24/24 Hist ory famotidine 20 mg tablet 20 mg PO QDAY 06/27/24 10/24/24 Hi story levothyroxine 112 mcg capsule 112 mcg PO QDAY 06/27/24 10/24/24 History pravastatin 40 mg tablet 40 mg PO QDAY 06/27/24 10/24/24 Hi story pantoprazole 40 mg tablet,delayed 40 mg PO QDAY #90 tabs 09/27/24 0 10/24/24 Rx release UltraFlora IB Probiotic PO QDAY 10/24/24 10/24/24 History Have you fallen in the past year?: No PFSH Medical History Hypothyroid Thyroid disease Arthritis High cholesterol History of IBS Smoker History of stress test IBS (irritable bowel syndrome) GERD (gastroesophageal reflux disease) Surgical History History of colonoscopy History of esophagogastroduodenoscopy (EGD) Status post panniculectomy ( 1980) History of cholecystectomy History of partial hysterectomy Social History Smoking Status: Current every day smoker tobacco type: cigarettes HPI HPI Details: ROMAN KUHN, is a 73 F who presents to the office today for follow up. *BGI established 06.27.24 Pt reports long history of IBS and GERD. Pt reports being on antibiotics and steroids in the past few weeks and feels this has exacerbated her symptoms. Pt reported daily use of miralax and benefiber, usually has a daily bm. Pt reports increased nausea with constipation. Pt states that she was told she has an extra 10 inches of intestines and wonders if this is affecting her digestion. MREnterography 08.15.24 No definite acute findings in the abdomen/pelvis. No gross bowel wall thickening or abnormal inflammatory changes in the abdomen/pelvis, to strongly suggest active inflammatory bowel disease. Solid organs of the abdomen are unremarkable except for a nonenhancing 2.1 cm intraparenchymal cyst posterior mid left kidney. No dedicated imaging follow-up recommended. No abdominal/pelvic adenopathy or ascites. EGD and Colonoscopy 09.17.24 EGD Normal esophagus. Bile gastritis. Biopsied. Normal second portion of the duodenum. Colonoscopy Preparation of the colon was poor. Diverticulosis in the recto-sigmoid colon, in the sigmoid colon and in the descending colon. Stool in the entire examined colon. No specimens collected. OV 10.24.24 Pt reports that she is feeling well overall and denies GI symptoms of concern at this time. Pt reports that she started a new probiotic in June, UltraFlora IB Probiotic, and has been feeling great ever since. Pt reports she is able to eat now and no longer feels bloated. ROS Const Constitutional: No fatigue, fever(s) or keesha (more content not included)... [facility] CNOVon 10-18-2024 CNOV Office Visit (ORTHWS ) ROMAN KUHN ([id number]) 1950 F Date Time Provider Department 10/18/24 11:30 AM BELINDA JASON During your visit today, we recorded the following information about you: Leeanne Montemayor MA 10/18/2024 11:33 AM Signed AMB ROOMING INTAKE FLOWSHEET DATA Pain Pain Level: 10 Pain Location: (bilateral knees) Description: Burning, Aching, Sharp Duration Amount of Time: (ongoing) Frequency: Continuous Intervention/Comfort measure: Medication Durolane injection into bilateral knees. LOT # [id number] EXP 03/02/2027 TARAH Manzano Sondra, PA-C 10/18/2024 11:33 AM Signed Large Joint Arthro/Inj: bilateral knee joints 10/18/2024 11:33 AM The procedure site was prepped in the usual sterile fashion. Site: bilateral knee joints Medications (Right): 3 mL hyaluronate sodium, stabilized 60 mg/3 mL Medications (Left): 3 mL hyaluronate sodium, stabilized 60 mg/3 mL Outcome: Tolerated well, no immediate complications Post-injection instructions were reviewed with the patient and the patient voiced understanding of these instructions. Informed Consent Consent Obtained: Verbal [place] Protocol A moment to CARE was completed. SIGN IN Sign in communication not applicable due to emergent procedure. Personnel directly involved with the procedure wore the appropriate PPE. Special Equipment: N/A Patient/Surrogate Stated/Verified: Patient name, Date of , Relevant allergies and Intended procedure TIME OUT Relevant labs, photos, and/or imaging studies have been reviewed. Consent documented and matches the intended procedure. Correct side/site marked and visible. Medications required for procedure verified. No fire risk assessment and interventions applicable. No implant(s) inserted. SIGN OUT No specimen collected. All instruments, equipment, possible retained foreign bodies accounted for. No post-procedure POC communication to the patient's multidisciplinary team (including the bedside nurse for hospitalized patients) applicable. Referring Provider: BELINDA JASON [[id number]] Allergies As of Date: 10/18/2024 Noted Allergy Reaction CECLOR (CEFACLOR) 04/27/2005 Comments: ER for anaphylaxis AVELOX (MOXIFLOXACIN HCL) 03/05/2010 5 - Intolerance BACTRIM (SULFAMETHOXAZOLE) 12/20/2012 16 - Unknown Comments: Insides were raging BIAXIN (CLARITHROMYCIN) 04/27/2005 CELEXA (CITALOPRAM HYDROBROMIDE) 05/16/2005 16 - Unknown CIPRO (CIPROFLOXACIN) 04/27/2005 ENTEX (PHENYLEPHRINE-GUAIFENESIN) 05/16/2005 ERYTHROMYCIN 04/27/2005 LEVSINEX (HYOSCYAMINE SULFATE) 05/16/2005 LIPITOR (ATORVASTATIN CALCIUM) 05/16/2005 NALDECON SENIOR DX (DEXTROMETHORP*04/27/2005 PARAFON FORTE DSC (CHLORZOXAZONE) 05/16/2005 PAXIL (PAROXETINE HCL) 05/16/2005 SULFA (SULFONAMIDE ANTIBIOTICS) 12/17/2012 14 - Other: See Comments SUPRAX (CEFIXIME) 04/27/2005 URISPAS (FLAVOXATE HCL) 05/16/2005 VOLTAREN (DICLOFENAC SODIUM) 05/16/2005 Date Reviewed: 10/18/2024 Reviewed by: Leeanne Montemayor MA - Fully Assessed Reason for Visit: Established Patient [175] Injections [199] Injections [199] Established Patient [175] Primary Visit Diagnosis:Primary osteoarthritis of both knees [M17.0] Order(s):Large Joint Arthro/Inj: bilateral knee joints [SNV554] Order #: [id number] [] hyaluronate sodium, stabilized syrg 3 mL (DUROLANE)Disp: Rfl: [] hyaluronate sodium, stabilized syrg 3 mL (DUROLANE)Disp: Rfl: Prescriptions as of 10/18/2024 - levothyroxine (SYNTHROID) 125 mcg tablet Take 1 tablet by mouth once daily. Take on empty stomach. For thyroid - colestipol (COLESTID) 1 gram tablet Take 1 tablet by mouth once daily. - pantoprazole DR (PROTONIX) 40 mg tablet Take 1 tablet by mouth daily before breakfast. Take on empty stomach, 1/2 hr before meal. - albuterol HFA (VENTOLIN HFA) 90 mcg/actuation inhaler Inhale 2 Puffs as instructed every 6 hours as needed for wheezing/shortness of breath. - tretinoin (RETIN-A) 0.025 % topical cream Apply 1 application to affected area daily at bedtime. - pravastatin (PRAVACHOL) 40 mg tablet Take 1 tablet by mouth once daily. - famotidine (PEPCID) 20 mg tablet Take 1 tablet by mouth once daily. - BENEFIBER, WHEAT DEXTRIN, ORAL Take 2 teaspoonsful by mouth three times a day. - polyethylene glycol 3350 (MIRALAX, GLYCOLAX) 17 gram/dose powder Take 17 g by mouth twice daily. - triamcinolone acetonide (NASACORT) 55 mcg nasal inhaler Use 2 Sprays in the nose once daily. - aspirin(ECOTRIN LOW STRENGTH 81 MG TAB) Take one(1) tablet daily. - ONE DAILY MULTI-VITAMIN TAB Take one(1) tablet daily. Meds Comments as of 09/02/2024: Uses Benefiber daily with Miralax. Does take daily Probiotic. Problem List As Of Date 10/18/2024 Noted Resolved Hyperlipidemia [E78.5] Seasonal allergic rhinitis [J30.2] Esophageal Reflux [K2 (more content not included)... Normal [facility] Large Joint Arthro/Inj: bila teral knee jointson 10-18-2024 Belinda Jason PA -C 10/18/2024 11:33 AM Large Joint Arthro/Inj: bilateral knee joints 10/18/2024 11:33 AM The procedure site was prepped in the usual sterile fashion. Site: bilateral knee joints Medications (Right): 3 mL hyaluronate sodium, stabilized 60 mg/3 mL Medications (Left): 3 mL hyaluronate sodium, stabilized 60 mg/3 mL Outcome: Tolerated well, no immediate complications Post-injection instructions were reviewed with the patient and the patient voiced understanding of these instructions. Informed Consent Consent Obtained: Verbal [place] Protocol A moment to CARE was completed. SIGN IN Sign in communication not applicable due to emergent procedure. Personnel directly involved with the procedure wore the appropriate PPE. Special Equipment: N/A Patient/Surrogate Stated/Verified: Patient name, Date of , Relevant allergies and Intended procedure TIME OUT Relevant labs, photos, and/or imaging studies have been reviewed. Consent documented and matches the intended procedure. Correct side/site marked and visible. Medications required for procedure verified. No fire risk assessment and interventions applicable. No implant(s) inserted. SIGN OUT No specimen collected. All instruments, equipment, possible retained foreign bodies accounted for. No post-procedure POC communication to the patient's multidisciplinary team (including the bedside nurse for hospitalized patients) applicable. [facility] CNOVon 09-30-2024 CNOV Office Visit (ORTHWS ) ROMAN KUHN ([id number]) 1950 F Date Time Provider Department 09/30/24 8:30 AM BELINDA JASON During your visit today, we recorded the following information about you: Coty Hardin MA 09/30/2024 8:36 AM Signed Patient presents with: Left Knee - Follow Up, Knee Pain Right Knee - Follow Up, Knee Pain: 20 weeks post visit OA bilateral knees with injections given AMB ROOMING INTAKE FLOWSHEET DATA Risk Screening Do you have concerns about personal safety or safety in the home?: No Pain Pain Level: 6 Pain Location: Knee-Left Description: Sharp Duration Amount of Time: (Ongoing) Frequency: Continuous Intervention/Comfort measure: Medication Patient states injection did help as much the last time. She is continuing to have pain. Applying Therworx for the pain and helps numb the pain. Belinda Jason PA-C 09/30/2024 8:36 AM Signed Belinda Jason PA-C Department of Orthopaedics Orthopaedics [address] [place] [id number] Dept: [phone] Dept September 30, 2024 CHIEF COMPLAINT: Follow Up and Knee Pain of the Left Knee and Follow Up and Knee Pain of the Right Knee (20 weeks post visit OA bilateral knees with injections given). ASSESSMENT: M17.0 Primary osteoarthritis of both knees (primary encounter diagnosis) M11.269 Chondrocalcinosis of knee, unspecified laterality SUMMARY/PLAN: Patient presents requesting a repeat left knee corticosteroid injection. She had bilateral knee corticosteroid injections this past May, right knee injection was much more helpful than the left. She is interested in trying some viscosupplementation. Has an allergy to NSAIDs, is already very active, does a walking and stretching routine daily. Is not interested in bracing. Ms. Roman Kuhn was advised as to contrast therapies and/or to take analgesics/anti-inflammatori es as needed and all contraindications were reviewed. Supporting Information Below: Medications: Current Outpatient Medications Medication Sig levothyroxine (SYNTHROID) 125 mcg tablet Take 1 tablet by mouth once daily. Take on empty stomach. For thyroid colestipol (COLESTID) 1 gram tablet Take 1 tablet by mouth once daily. pantoprazole DR (PROTONIX) 40 mg tablet Take 1 tablet by mouth daily before breakfast. Take on empty stomach, 1/2 hr before meal. albuterol HFA (VENTOLIN HFA) 90 mcg/actuation inhaler Inhale 2 Puffs as instructed every 6 hours as needed for wheezing/shortness of breath. tretinoin (RETIN-A) 0.025 % topical cream Apply 1 application to affected area daily at bedtime. pravastatin (PRAVACHOL) 40 mg tablet Take 1 tablet by mouth once daily. famotidine (PEPCID) 20 mg tablet Take 1 tablet by mouth once daily. BENEFIBER, WHEAT DEXTRIN, ORAL Take 2 teaspoonsful by mouth three times a day. polyethylene glycol 3350 (MIRALAX, GLYCOLAX) 17 gram/dose powder Take 17 g by mouth twice daily. triamcinolone acetonide (NASACORT) 55 mcg nasal inhaler Use 2 Sprays in the nose once daily. aspirin(ECOTRIN LOW STRENGTH 81 MG TAB) Take one(1) tablet daily. ONE DAILY MULTI-VITAMIN TAB Take one(1) tablet daily. No current facility-administered medications for this visit. Allergies: Ceclor [Cefaclor], Avelox [Moxifloxacin Hcl], Bactrim [Sulfamethoxazole], Biaxin [Clarithromycin], Celexa [Citalopram Hydrobromide], Cipro [Ciprofloxacin], Entex [Phenylephrine-Guaifenesin], Erythromycin, Levsinex [Hyoscyamine Sulfate], Lipitor [Atorvastatin Calcium], Naldecon Senior Dx [Dextromethorphan-Guaifenesi n], Parafon Forte Dsc [Chlorzoxazone], Paxil [Paroxetine Hcl], Sulfa (Sulfonamide Antibiotics), Suprax [Cefixime], Urispas [Flavoxate Hcl], and Voltaren [Diclofenac Sodium] This note was partially generated using [employer] voice recognition system, and there may be some incorrect words, spellings, and punctuation that were not noted in checking the note before saving. Belinda Jason PA-C Large Joint Arthro/Inj: L knee joint 09/30/2024 8:34 AM The procedure site was prepped in the usual sterile fashion. Site: L knee joint Medications: 6 mg betamethasone acetate-betamethasone sodium phosphate 6 mg/mL Anesthetics: 5 mL lidocaine (PF) 10 mg/mL (1 %) Outcome: Tolerated well, no immediate complications Post-injection instructions were reviewed with the patient and the patient voiced understanding of these instructions. Informed Consent Consent Obtained: Verbal [place] Protocol A moment to CARE was completed. SIGN IN Sign in communication not applicable due to emergent procedure. Personnel directly involved with the procedure wore the appropriate PPE. Special Equipment: N/A Patient/Surrogate Stated/Verified: Patient name, Date of , Relevant allergies and Intended procedure TIME OUT Relevant labs, photos, and/or imaging studies have been reviewed. Conse (more content not included)... Normal [facility] Large Joint Arthro/Inj: L kn ee jointon 09-30-2024 Belinda Jason PA -C 09/30/2024 8:36 AM Large Joint Arthro/Inj: L knee joint 09/30/2024 8:34 AM The procedure site was prepped in the usual sterile fashion. Site: L knee joint Medications: 6 mg betamethasone acetate-betamethasone sodium phosphate 6 mg/mL Anesthetics: 5 mL lidocaine (PF) 10 mg/mL (1 %) Outcome: Tolerated well, no immediate complications Post-injection instructions were reviewed with the patient and the patient voiced understanding of these instructions. Informed Consent Consent Obtained: Verbal [place] Protocol A moment to CARE was completed. SIGN IN Sign in communication not applicable due to emergent procedure. Personnel directly involved with the procedure wore the appropriate PPE. Special Equipment: N/A Patient/Surrogate Stated/Verified: Patient name, Date of , Relevant allergies and Intended procedure TIME OUT Relevant labs, photos, and/or imaging studies have been reviewed. Consent documented and matches the intended procedure. Correct side/site marked and visible. Medications required for procedure verified. No fire risk assessment and interventions applicable. No implant(s) inserted. SIGN OUT No specimen collected. All instruments, equipment, possible retained foreign bodies accounted for. [facility] Colonoscopy Reporton 025 Colonoscopy Report [facility] Medical Records Department [address] [place] [address] Colonoscopy Report MR#: [id number] Acct: [id number] Name: ROMAN KUHN Rep #: [id number] : 1950 73 From: Chucky Woodall DO PCP: Dr. Pepe Reyes MD Status:REG [facility] [facility] [place] Patient Name: Roman Kuhn Procedure Date: 09/17/2024 3:09 PM Date of : 1950 Age: 73 Procedure: Colonoscopy Indications: Generalized abdominal pain, Chronic diarrhea Providers: Chucky Woodall DO Referring MD: Pepe Reyes Medicines: Monitored Anesthesia Care Patient Profile: This is a 73 year old female. Refer to note in patient chart for documentation of history and physical. Patient has symptoms of chronic abdominal cramping, chronic abdominal distention and chronic epigastric abdominal pain. Last Colonoscopy: date unknown. Unable to locate last colonoscopy report. Complications: No immediate complications. Procedure: Pre-Anesthesia Assessment: - Prior to the procedure, a History and Physical was performed, and patient medications and allergies were reviewed. The patient is competent. The risks and benefits of the procedure and the sedation options and risks were discussed with the patient. All questions were answered and informed consent was obtained. Patient identification and proposed procedure were verified by the physician in the pre-procedure area. Mental Status Examination: alert and oriented. Airway Examination: normal oropharyngeal airway and neck mobility. Respiratory Examination: clear to auscultation. CV Examination: normal. Prophylactic Antibiotics: The patient does not require prophylactic antibiotics. Prior Anticoagulants: The patient has taken no anticoagulant or antiplatelet agents except for NSAID medication. ASA Grade Assessment: II - A patient with mild systemic disease. After reviewing the risks and benefits, the patient was deemed in satisfactory condition to undergo the procedure. The anesthesia plan was to use monitored anesthesia care (MAC). Immediately prior to administration of medications, the patient was re-assessed for adequacy to receive sedatives. The heart rate, respiratory rate, oxygen saturations, blood pressure, adequacy of pulmonary ventilation, and response to care were monitored throughout the procedure. The physical status of the patient was re-assessed after the procedure. After I obtained informed consent, the scope was passed under direct vision. Throughout the procedure, the patient's blood pressure, pulse, and oxygen saturations were monitored continuously. The Colonoscope was introduced through the anus and advanced to the ileocecal valve. The colonoscopy was performed without difficulty. The patient tolerated the procedure well. The quality of the bowel preparation was poor. The ileocecal valve was photographed. Scope In: 3:11:02 PM Scope Withdrawal Time 0 hours 5 minutes 13 seconds Scope Out: 3:22:38 PM Total Procedure Duration Time 0 hours 11 minutes 36 seconds Findings: The perianal and digital rectal examinations were normal. Multiple small-mouthed diverticula were found in the recto-sigmoid colon, sigmoid colon and descending colon. Stool was found in the entire colon. Impression: - Preparation of the colon was poor. - Diverticulosis in the recto-sigmoid colon, in the sigmoid colon and in the descending colon. - Stool in the entire examined colon. - No specimens collected. Recommendation: - Discharge patient to home. - Resume previous diet. - Continue present medications. - Repeat colonoscopy because the bowel preparation was suboptimal. Procedure Code(s): --- Professional --- 62585, Colonoscopy, flexible; diagnostic, including collection of specimen(s) by brushing or washing, when performed (separate procedure) CPT copyright 2021 [employer]. All rights reserved. The codes documented in this report are preliminary and upon barrel lathe operator outside review may be revised to meet current compliance requirements. Chucky Woodall DO 09/17/2024 3:30:31 PM This report has been signed electronically. Number of Addenda: 0 Note Initiated On: 09/17/2024 3:09 PM 09/17/24 1530 Date Chucky Auguste Signature: Date (if indicated) CC: Dr. Pepe Reyes MD; Chucky Woodall DO Date Dictated: 09/17/24 1509 Date Transcribed: Certified Medical Dosimetrist: RF Signed Normal [facility] EGD Reporton 09-17-2024 EGD Report [facility] Medical Records Department [address] [place] [address] EGD Report MR#: [id number] Acct: [id number] Name: ROMAN KUHN Rep #: [id number] : 1950 73 From: Chucky Woodall DO PCP: Dr. Pepe Reyes MD Status:REG [place] [facility] [place] Patient Name: Roman Kuhn Procedure Date: 09/17/2024 2:33 PM Date of : 1950 Age: 73 Procedure: Upper GI endoscopy Indications: Epigastric abdominal pain Providers: Chucky Woodall DO Referring MD: Pepe Reyes Medicines: Monitored Anesthesia Care Patient Profile: This is a 73 year old female. Refer to note in patient chart for documentation of history and physical. Patient has symptoms of chronic abdominal cramping, chronic abdominal distention and chronic epigastric abdominal pain. Complications: No immediate complications. Procedure: Pre-Anesthesia Assessment: - Prior to the procedure, a History and Physical was performed, and patient medications and allergies were reviewed. The patient is competent. The risks and benefits of the procedure and the sedation options and risks were discussed with the patient. All questions were answered and informed consent was obtained. Patient identification and proposed procedure were verified by the physician in the pre-procedure area. Mental Status Examination: alert and oriented. Airway Examination: normal oropharyngeal airway and neck mobility. Respiratory Examination: clear to auscultation. CV Examination: normal. Prophylactic Antibiotics: The patient does not require prophylactic antibiotics. Prior Anticoagulants: The patient has taken no anticoagulant or antiplatelet agents except for NSAID medication. ASA Grade Assessment: II - A patient with mild systemic disease. After reviewing the risks and benefits, the patient was deemed in satisfactory condition to undergo the procedure. The anesthesia plan was to use monitored anesthesia care (MAC). Immediately prior to administration of medications, the patient was re-assessed for adequacy to receive sedatives. The heart rate, respiratory rate, oxygen saturations, blood pressure, adequacy of pulmonary ventilation, and response to care were monitored throughout the procedure. The physical status of the patient was re-assessed after the procedure. After obtaining informed consent, the endoscope was passed under direct vision. Throughout the procedure, the patient's blood pressure, pulse, and oxygen saturations were monitored continuously. The Colonoscope was introduced through the mouth, and advanced to the second part of duodenum. The upper GI endoscopy was accomplished without difficulty. The patient tolerated the procedure well. Scope In: 3:04:21 PM Scope Out: 3:08:02 PM Total Procedure Duration Time 0 hours 3 minutes 41 seconds Findings: The examined esophagus was normal. Patchy moderate inflammation characterized by erosions, erythema and friability was found in the gastric body. Biopsies were taken with a cold forceps for histology. Verification of patient identification for the specimen was done. Estimated blood loss was minimal. The second portion of the duodenum was normal. Impression: - Normal esophagus. - Bile gastritis. Biopsied. - Normal second portion of the duodenum. Recommendation: - Await pathology results. - Continue present medications. Procedure Code(s): --- Professional --- 24607, Esophagogastroduodenoscopy, flexible, transoral; with biopsy, single or multiple CPT copyright 2021 [employer]. All rights reserved. The codes documented in this report are preliminary and upon barrel lathe operator outside review may be revised to meet current compliance requirements. Chucky Woodall DO 09/17/2024 3:28:26 PM This report has been signed electronically. Number of Addenda: 0 Note Initiated On: 09/17/2024 2:33 PM 09/17/24 1528 Date Chucky Woodall DO Cosigner Signature: Date (if indicated) CC: Dr. Pepe Reyes MD; Chucky Woodall DO Date Dictated: 09/17/24 1433 Date Transcribed: Certified Medical Dosimetrist: ASHLEY Signed Normal [facility] Immunohistochemical Stainson 09-17-2024 Immunohistochemical Stains -------- Patient Age/Sex Location Account Attending Physician -------- ROMAN KUHN 73/F EN [id number] Chucky Woodall DO -------- Specimen: [id number] Received: 09/18/24 Status: VICK [place]ron Num: [id number] Spec Type: EGD BIOPSY Debbi Dr: Chucky Woodall DO HEADER OPERATION: Colonoscopy, EGD with biopsy PRE-OP DIAGNOSIS: Abdominal pain TISSUE SUBMITTED: A- Gastric body biopsy -------- MICROSCOPIC DIAGNOSIS Gastric body, biopsy:Chronic gastritisAn immunohistochemical stain for H. pylori organisms with appropriate controls is negative for organisms.J Sailors MD, 09/26/2024 MICROSCOPIC DESCRIPTION Slides are reviewed. GROSS DESCRIPTION A. Received in fixative is one container labeled with the patient's name and designated Gastric body biopsy. The specimen consists of multiple irregular fragments of light gomez soft tissue that in aggregate measure 1.2 x 0.4 x 0.2 cm. The specimen is totally submitted in one cassette. 09/18/2024 CPT:10625 ,47033, TC:3 -------- Patient Age/Sex Location Account Attending Physician -------- ROMAN KUHN 73/F EN [id number] Chucky Woodall DO -------- Signed (signature on file) Dr. Prem Maldonado MD 09/26/24 1155 -------- Normal [facility] Comment on above: Performed By: #### L 400.0001 #### [facility] [address] [place], [address] MR/POSTOP.ANEon 09-17-2024 MR/POSTOP.ANE [facility] Medical Records Department [address] [place] [address] Anesthesia Postop Eval I 09/17/24 1524 MR#: [id number] Acct: [id number] Name: ROMAN KUHN Rep #: [id number] : 1950 73 From: Leti Petersen CRNA PCP: Dr. Pepe Reyes MD Status:REG SDC Y Race: C Location: [place] [address] Anesthesia: Postop Eval I Current Vital Signs Temperature: 98.3 F Pulse Rate: 94 Blood Pressure: 109/69 Respiratory Rate: 20 Pulse Ox: 98 Oxygen Delivery Method: Room Air Assessment Airway patent: Yes Spontaneous unlabored respirations: Yes Mental status: Awake nausea: No Vomiting: No Anesthesia Complication: No Fluid Hydration Crystalloid volume administer (ml): 10 Total IV fluid infused: 10 Progress Note Anesthesia document: Postop Eval 1 completed: Yes 09/17/24 1531 Date Leti Petersen TIRE SHOP MANAGER Cosigner Signature: Date CC: Signed Normal [facility] MR/[id number] 09-17-2024 MR/POSTOPAN2 [facility] Medical Records Department [address] [place] [address] Anesthesia Postop Eval II 09/17/24 1624 MR#: [id number] Acct: [id number] Name: ROMAN KUHN Rep #: [id number] : 1950 73 From: Santo Hankins MD PCP: Dr. Pepe Reyes MD Status:REG SDC Y Race: C Location: [facility]- Anesthesia Postop Eval I Sum Postop Eval Completion status Anesthesia document: Postop Eval 1 completed: Yes Anesthesia Postop Eval I Summary Anesthesia Postop Eval I Summary: Anesthesia Postop Eval I: Assessment Summary Airway patent Yes 09/17/24 15:31 TIRE SHOP [email or web address] Spontaneous unlabored Yes 09/17/24 15:31 TIRE SHOP MANAGER.[email or web address] respirations Mental status Awake 09/17/24 15:31 TIRE SHOP [email or web address].[email or web address] nausea No 09/17/24 15:31 TIRE SHOP MANAGER.[email or web address] Vomiting No 09/17/24 15:31 TIRE SHOP MANAGER.[email or web address] Anesthesia Postop Eval I: Fluid Summary Crystalloid volume administer 10 09/17/24 15:31 TIRE SHOP MANAGER.[email or web address] (ml) Colloids volume administered ( ml) Blood Product volume administered (ml) Total IV fluid infused 10 09/17/24 15:31 TIRE SHOP MANAGER.[email or web address] Anesthesia Postop Eval I: Summary Notes Anesthesia Complication No 09/17/24 15:31 TIRE SHOP MANAGER.[email or web address] Anesthesia Complication Comment: Post-operative progress note Anesthesia: Postop Eval II Evaluation Mental status: Awake Pain Level: 0 nausea: No Vomiting: No Complications Anesthesia Complication: No 09/17/24 1624 Date Santo Hankins MD Cosigner Signature: Date CC: Signed [facility] CNOVon 09-02-2024 CNOV Office Visit (FAMPWS ) ROMAN KUHN ([id number]) 1950 F Date Time Provider Department 09/02/24 12:40 PM PEPE REYES During your visit today, we recorded the following information about you: Pulse Respiration Blood pressure Weight 76/minute 18/minute 128/80 57.4 kg Pepe Reyes MD 09/02/2024 3:39 PM Signed Chief Complaint Patient presents with: F/U 6 Month HPI Roman Kuhn is a 73 year old female who presents here today for 6 month follow up. Smoking 1 ppd. Has chronic Gi and bowel issues. No urinary issues. Chronic hx of IBS. Has intermittent flare ups with being off her diet or eating things she shouldn't. Pt current taking Miralax BID, Benefiber, Protonix 40 mg once daily, Pepcid 20 mg once daily and Colestid 1 gram daily. Did start taking a daily Probiotic which has significantly helped her GI symptoms. Thyroid: Taking synthroid 112 mcg daily, feels okay on this dosage. No missed dosages. Lipid/glucose: Watches her diet. Exercising 15 minutes of stretching per day. Taking Pravastatin 40 mg daily. Following with Derm, Dr. Stock for seborrheic keratosis and toenail fungus. Was being treated with Diflucan, thought she was seeing improvement. Issues with sacroiliac joint and following with Chiropractor and went through their program. Does 15 minutes of stretching every morning. HM - Does have a Living Will. Due for Covid vaccine in October or October 2024. Past medical history, appointments, medications, allergies reviewed. Previous Medical History PAST MEDICAL HISTORY Diagnosis Date Abdominal pain, epigastric Allergic rhinitis, cause unspecified Allergic rhinitis Esophageal reflux IBS (irritable bowel syndrome) constipation primarily Other and unspecified hyperlipidemia Unspecified hypothyroidism Previous Surgical History PAST SURGICAL HISTORY Procedure Laterality Date ABDOMINAL SURGERY HX BIOPSY BREAST OPEN INCISIONAL 08/14/2017 left stereotactic breast biopsy w/clip placement [facility] COLONOSCOPY FLX DX W/COLLJ SPEC WHEN PFRMD 12/18/2003 Colonoscopy COLONOSCOPY FLX DX W/COLLJ SPEC WHEN PFRMD 03/11/2008 Colonoscopy COLONOSCOPY FLX DX W/COLLJ SPEC WHEN PFRMD 07/19/2012 Colonoscopy COLONOSCOPY FLX DX W/COLLJ SPEC WHEN PFRMD 11/13/2018 Colonoscopy COSMETIC ASSESSMENT EGD 09/01/2020 ESOPHAGOGASTRODUODENOSCOPY TRANSORAL DIAGNOSTIC 03/12/2012 EGD ESOPHAGOGASTRODUODENOSCOPY TRANSORAL DIAGNOSTIC 11/13/2018 EGD EYE SURGERY HX LAPS SURG CHOLECYSTECTOMY W/CHOLANGIOGRAPHY 04/17/2012 Normal IOC PAST SURGICAL HISTORY OF hemmorhoidectomy PAST SURGICAL HISTORY OF 1969 ventral hernia repair - [place] - unknown for mesh PAST SURGICAL HISTORY OF age 27 partial hysterectomy PAST SURGICAL HISTORY OF 1998 benign breast bx PAST SURGICAL HISTORY OF 07/2002 lasik eye surgery PAST SURGICAL HISTORY OF 07/2006 recheck and enhancement on eye surgery PAST SURGICAL HISTORY OF Bilateral 2019 OD - 08/21, OS - 09/[address] Stock. Cataract implants RHINP PRIM LATANDALAR CRTLGSAND/ELVTN NASAL TI Rhinoplasty x 2 VAGINAL HYSTERECTOMY Family History FAMILY HISTORY Problem Relation Age of Onset Prostate Cancer Father Coronary Artery Disease Father late in life; enlarged heart; smoked Heart Mother valve, age 81 Colon Cancer Other none Diabetes Other none Patient Allergies ALLERGIES Allergen Reactions Ceclor [Cefaclor] ER for anaphylaxis Avelox [Moxifloxaci* Intolerance Bactrim [Sulfametho* Unknown Insides were raging Biaxin [Clarithromy* Celexa [Citalopram * Unknown Cipro [Ciprofloxaci* Entex [Phenylephrin* Erythromycin Levsinex [Hyoscyami* Lipitor [Atorvastat* Naldecon Senior Dx * Parafon Forte Dsc [* Paxil [Paroxetine H* Sulfa (Sulfonamide * Other: See Comments Suprax [Cefixime] Urispas [Flavoxate * Voltaren [Diclofena* Current Medications Current Outpatient Medications on File Prior to Visit Medication Sig colestipol (COLESTID) 1 gram tablet Take 1 tablet by mouth once daily. levothyroxine (SYNTHROID) 112 mcg tablet Take 1 tablet by mouth once daily. Take on empty stomach. For thyroid pantoprazole DR (PROTONIX) 40 mg tablet Take 1 tablet by mouth daily before breakfast. Take on empty stomach, 1/2 hr before meal. albuterol HFA (VENTOLIN HFA) 90 mcg/actuation inhaler Inhale 2 Puffs as instructed every 6 hours as needed for wheezing/shortness of breath. tretinoin (RETIN-A) 0.025 % topical cream Apply 1 application to affected area daily at bedtime. pravastatin (PRAVACHOL) 40 mg tablet Take 1 tablet by mouth once daily. famotidine (PEPCID) 20 mg tablet Take 1 tablet by mouth once daily. BENEFIBER, WHEAT DEXTRIN, ORAL Take 2 teaspoonsful by mouth three times a day. polyethylene glycol 3350 (MIRALAX, GLYCOLAX) 17 gram/dose powder Take 17 g by mouth twice daily. triamcinolone acetonide (NASACORT (more content not included)... Normal [facility] Comprehensive metabolic 2000 panelon 08-26-2024 Albumin [Mass/Vol] 4.4 g/dL Normal 3.9-4.9 [facility] Comment on above: Order Comment: Speci men Type: BLOOD SPECIMENOrdering Facility: [facility] Address: [address] [place] [address] Performed By: #### 2 4323-8, 39744-7, 3015-3 ####[facility] LABCLIA [id number] [place] [address] [place] ALP [Catalytic activity/Vol] 73 U/L Normal 34-123 [facility] Comment on above: Order Comment: Speci men Type: BLOOD SPECIMENOrdering Facility: [facility] Address: [address] [place] [address] Performed By: #### 2 4323-8, 17597-0, 3015-3 ####[facility] LABCLIA [id number] [place] [id number] [place] ALT [Catalytic activity/Vol] 16 U/L Normal 7-38 [facility] Comment on above: Order Comment: Speci men Type: BLOOD SPECIMENOrdering Facility: [facility] Address: [address] [place] [address] Performed By: #### 2 4323-8, 22648-6, 6-3 ####[facility] LABCLIA [id number] [address] [address] [place] Anion gap [Moles/Vol] 12 mmol/L Normal 8-15 [facility] Comment on above: Order Comment: Speci men Type: BLOOD SPECIMENOrdering Facility: [facility] Address: [address] [place] [address] Performed By: #### 2 4323-8, 12815-4, 3016-3 ####[facility] LABCLIA [id number] [place] [id number] [place] AST [Catalytic activity/Vol] 25 U/L Normal 13-35 [facility] Comment on above: Order Comment: Speci men Type: BLOOD SPECIMENOrdering Facility: [facility] Address: [address] [place] [address] Performed By: #### 2 4323-8, 62780-4, 3016-3 ####[facility] LABCLIA [id number] [place] [address] [place] Bilirubin [Mass/Vol] 0.3 mg/dL Normal 0.2-1.3 [facility] Comment on above: Order Comment: Speci men Type: BLOOD SPECIMENOrdering Facility: [facility] Address: [address] [place] [address] Performed By: #### 2 4323-8, 86018-0, 3016-3 ####[facility] LABCLIA [id number] [place] [id number] [place] Calcium [Mass/Vol] 10.3 mg/dL High 8.5-10.2 [facility] Comment on above: Order Comment: Speci men Type: BLOOD SPECIMENOrdering Facility: [facility] Address: [address] [place] [address] Performed By: #### 2 4323-8, 05319-1, 3016-3 ####[facility] LABCLIA [id number] [place] [id number] [place] Chloride [Moles/Vol] 104 mmol/L Normal 98-107 [facility] Comment on above: Order Comment: Speci men Type: BLOOD SPECIMENOrdering Facility: [facility] Address: [address] [place], [place] [address] Performed By: #### 2 4323-8, 26492-2, 3016-3 ####[facility] LABCLIA [id number] [place] [id number] [place] CO2 [Moles/Vol] 26 mmol/L Normal 22-30 [facility] Comment on above: Order Comment: Speci men Type: BLOOD SPECIMENOrdering Facility: [facility] Address: [address] [place] [address] Performed By: #### 2 4323-8, 32263-6, 3016-3 ####[facility] LABCLIA [id number] [place] [address] [place] Creatinine [Mass/Vol] 0.75 mg/dL Normal 0.58-0.96 [facility] Comment on above: Order Comment: Speci men Type: BLOOD SPECIMENOrdering Facility: [facility] Address: [address] [place] [address] Performed By: #### 2 4323-8, 58961-0, 3016-3 ####[facility] LABCLIA [id number] [place] [id number] [place] Creatinine and Glomerular filtration rate.predicted panel (S/P/Bld) 83 mL/min/1.73m??? Normal >=60 [facility] Comment on above: Order Comment: Speci men Type: BLOOD SPECIMENOrdering Facility: [facility] Address: [address] [place], [place] [address] Result Comment: Rossy mated Glomerular Filtration Rate (eGFR) is calculated using the 2020 CKD-EPI creatinine equation. This equation utilizes serum creatinine, sex, and age as parameters. The creatinine assay has traceable calibration to isotope dilution-mass spectrometry. Refer to KDIGO guidelines for clinical interpretation. In patients with unstable renal function, e.g. those with acute kidney injury, the eGFR may not accurately reflect actual GFR. Performed By: #### 2 4323-8, 75380-6, 3 ####[facility] LABCLIA [id number] [facility] [address] [address] [place] Glucose [Mass/Vol] 93 mg/dL Normal 74-99 [facility] Comment on above: Order Comment: Speci men Type: BLOOD SPECIMENOrdering Facility: [facility] Address: [address] [place] [address] Result Comment: The [place] Diabetes Association (ADA) provides guidance for cutoff values for fasting glucose and random glucose. The ADA defines fasting as no caloric intake for at least 8 hours. Fasting plasma glucose results between 100 to 125 mg/dL indicate increased risk for diabetes (prediabetes). Fasting plasma glucose results greater than or equal to 126 mg/dL meet the criteria for diagnosis of diabetes. In the absence of unequivocal hyperglycemia, results should be confirmed by repeat testing. In a patient with classic symptoms of hyperglycemia or hyperglycemic crisis, random plasma glucose results greater than or equal to 200 mg/dL meet the criteria for diagnosis of diabetes. Reference: Standards of Medical Care in Diabetes 2016, [place] Diabetes Association. Diabetes Care. 2016.39(Suppl 1). Performed By: #### 2 4323-8, 23145-1, 3015-09 ####[facility] LABCLIA [id number] [facility]ST[facility]ENTERK [id number] [place] [address] [place] Potassium [Moles/Vol] 4.2 mmol/L Normal 3.7-5.1 [facility] Comment on above: Order Comment: Annalisa men Type: BLOOD SPECIMENOrdering Facility: [facility] Address: [address] [place] [address] Performed By: #### 2 4323-8, 50731-5, 3015-09 ####[facility] LABCLIA [id number] [facility]ENTER[facility] AVENUEDES[address]VD[place]ASJKBC, [place] [address] [place] Protein [Mass/Vol] 6.6 g/dL Normal 6.3-8.0 [facility] Comment on above: Order Comment: Speci men Type: BLOOD SPECIMENOrdering Facility: [facility] Address: [address] [place] [address] Performed By: #### 2 4323-8, 67004-4, 3 ####[facility] LABCLIA [id number] [facility] [address] [address] [place] Sodium [Moles/Vol] 142 mmol/L Normal 136-144 [facility] Comment on above: Order Comment: Speci men Type: BLOOD SPECIMENOrdering Facility: [facility] Address: [address] [place] [address] Performed By: #### 2 4323-8, 93270-7, 3 ####[facility] LABCLIA [id number] [place] [address] [place] Urea nitrogen [Mass/Vol] 13 mg/dL Normal 7-21 [facility] Comment on above: Order Comment: Speci men Type: BLOOD SPECIMENOrdering Facility: [facility] Address: [address] [place] [address] Performed By: #### 2 4323-8, 25019-5, 3 ####[facility] LABIA [id number] [address] [address] [place] HbA1c (Bld)on 08-26-2024 Average glucose Estimated from glycated hemoglobin (Bld) [Mass/Vol] 131 mg/dL Normal [facility] Comment on above: Order Comment: Speci men Type: BLOOD SPECIMENOrdering Facility: [facility] Address: [address] [place] [address] Result Comment: eAG: (Estimated average glucose) is a calculated value from HgbA1c and is paper sales representative of the average blood glucose level in the last 2-3 month period. Performed By: #### 5 5454-3 ####[facility] LABCLIA [id number] [facility]ENT[facility] [address] [address] [place] HbA1c (Bld) [Mass fraction] 6.2 % High 4.3-5.6 [facility] Comment on above: Order Comment: Annalisa shah Type: BLOOD SPECIMENOrdering Facility: [facility] Address: [address] [place] [address] Result Comment: Curt ican Diabetes Association guidelines indicate that patients with HgbA1c in the range 5.7-6.4% are at increased risk for development of diabetes, and intervention by lifestyle modification may be beneficial. HgbA1c greater or equal to 6.5% is considered diagnostic of diabetes. Performed By: #### 5 5454-3 ####[facility] LABCLIA [id number] [place] [address] [place] Lipid 1996 panelon 5 Cholesterol [Mass/Vol] 186 mg/dL Normal <200 [facility] Comment on above: Order Comment: Annalisa alyssa Type: BLOOD SPECIMENOrdering Facility: [facility] Address: [address] [place] [address] Result Comment: <200 mg/dL, Desirable 200-239 mg/dL, Borderline high >239 mg/dL, High Performed By: #### 2 4323-8, 38602-1, 3016-3 ####[facility] LABCLIA [id number] [address] [address] [place] Cholesterol in HDL [Mass/Vol] 65 mg/dL Normal >39 [facility] Comment on above: Order Comment: Annalisa shah Type: BLOOD SPECIMENOrdering Facility: [facility] Address: [address] [place] [address] Result Comment: 40-5 9 mg/dL, Acceptable >59 mg/dL, High: Negative risk factor for coronary heart disease <40 mg/dL, Low: Positive risk factor for coronary heart disease Performed By: #### 2 4323-8, 69108-9, 3016-3 ####[facility] LABCLIA [id number] [address] [address] [place] Cholesterol in LDL [Mass/Vol] 99 mg/dL Normal <100 [facility] Comment on above: Order Comment: Annalisa shah Type: BLOOD SPECIMENOrdering Facility: [facility] Address: [address] [place] [address] Result Comment: <100 mg/dL, Optimal 100-129 mg/dL, Near optimal/above optimal 130-159 mg/dL, Borderline high 160-189 mg/dL, High >189 mg/dL, Very high Secondary prevention optimal LDL Cholesterol levels are recommended to be < 70 mg/dL Performed By: #### 2 4323-8, 49412-4, 6-3 ####[facility] LABCLIA [id number] [address] [address] [place] Cholesterol in LDL/Cholesterol in HDL [Mass ratio] 1.52 {ratio} Normal <2.54 [facility] Comment on above: Order Comment: Annalisa shah Type: BLOOD SPECIMENOrdering Facility: [facility] Address: [address] [place] [address] Result Comment: Refe rence: 1. National Cholesterol Education Program ATP III Guideline At-A-Glance Quick Desk Reference: National Heart, Lung, and Blood [place]. National Institutes of Health. 2001: NIH Publication No. 01-3305. 2. An International Atherosclerosis Society position paper: global recommendations for the management of dyslipidemia: executive summary, Atherosclerosis. 2014: 232(2):410-413. Performed By: #### 2 4323-8, 87563-1, 3015-3 ####[facility] LABCLIA [id number] [address] [address] [place] Cholesterol in VLDL [Mass/Vol] 22 mg/dL Normal <30 [facility] Comment on above: Order Comment: Annalisa men Type: BLOOD SPECIMENOrdering Facility: [facility] Address: [address] [place] [address] Performed By: #### 2 4323-8, 25239-4, 6-3 ####[facility] LABCLIA [id number] [place] [address] [address] [place] Cholesterol non HDL [Mass/Vol] 121 mg/dL Normal <130 [facility] Comment on above: Order Comment: Speci men Type: BLOOD SPECIMENOrdering Facility: [facility] Address: [address] [place] [address] Result Comment: <130 mg/dL, Optimal 130-159 mg/dL, Near optimal/above optimal 160-189 mg/dL, Borderline high 190-219 mg/dL, High >219 mg/dL, Very high Secondary prevention optimal non HDL Cholesterol levels are recommended to be <100 mg/dL Performed By: #### 2 4323-8, 57683-9, 3016-3 ####[facility] LABCLIA [id number] [place] [address] [place] Cholesterol.total/Chol esterol in HDL [Mass ratio] 2.86 {ratio} Normal <5.10 [facility] Comment on above: Order Comment: Speci men Type: BLOOD SPECIMENOrdering Facility: [facility] Address: [address] [place] [address] Performed By: #### 2 4323-8, 38796-8, 3016-3 ####[facility] LABCLIA [id number] [place] [address] [place] FASTING TIME 12 hrs Normal [facility] Comment on above: Order Comment: Speci men Type: BLOOD SPECIMENOrdering Facility: [facility] Address: [address] [place] [address] Performed By: #### 2 4323-8, 59677-9, 3016-3 ####[facility] LABCLIA [id number] [place] [id number] [place] Triglyceride [Mass/Vol] 108 mg/dL Normal <150 [facility] Comment on above: Order Comment: Speci men Type: BLOOD SPECIMENOrdering Facility: [facility] Address: [address] [place] [address] Result Comment: <150 mg/dL, Normal 150-199 mg/dL, Borderline high 200-499 mg/dL, High >499 mg/dL, Very high Performed By: #### 2 4323-8, 16334-2, 3016-3 ####[facility] LABCLIA [id number] [address] [address] [place] [facility] TSH SerPl-aCncon 08-26-2024 TSH Qn 4.790 m[IU]/L High 0.270-4.20 0 [facility] Comment on above: Order Comment: Speci men Type: BLOOD SPECIMENOrdering Facility: [facility] Address: [address] [place] [address] Performed By: #### 2 4323-8, 83779-1, 3016-3 ####[facility] LABIA [id number] [place] [id number] [facility] Enterography Abd/Mango 08-15 Enterography Abd/Pel [facility] Imaging Services [address] [place] [address] Enterography Abd/Pel MR#: [id number] Acct: [id number] Name: ROMAN KUHN Rep #: [id number] : 1950 F 73 From: Cory Bridges i DO PCP: Dr. Pepe Reyes MD Status: REG CLI Study: Enterography Abd/Pel Date of Exam: 08/15/24 Exam# [id number] Ordering Dr: Chucky Woodall DO EXAM: MRI of the abdomen/pelvis without and with IV contrast. CLINICAL HISTORY: Noninfective gastroenteritis/colitis. History of irritable bowel syndrome for 30 years. COMPARISON: CT of the abdomen/pelvis 05/26/2024 TECHNIQUE: Multiplanar, multisequence MRI images of the abdomen/pelvis were obtained without and with intravenous contrast. 11 cc of Dotarem IV contrast was administered. FINDINGS: Mild degenerative changes in the spine. Osseous structures of the abdomen/pelvis otherwise unremarkable. No focal abnormality of the urinary bladder. The uterus appears to be absent. No adnexal mass. The included heart and lower mediastinal structures, as well as the lower lungs are unremarkable. No large abdominal wall defect. Abdominal aorta normal in caliber. No abdominal/pelvic adenopathy or ascites. No omental or central mesenteric mass demonstrated. The liver, adrenal glands, spleen, and pancreas show no specific abnormality. There is a moderate amount of fluid signal in the stomach. No discrete gastric lesion. Kidneys are symmetric in signal and morphology. No solid appearing renal mass or obstructive uropathy. Nonenhancing 2.1 cm mostly intraparenchymal cyst posterior mid left kidney. The origins of the major abdominal aortic side branches appear patent. No abnormally dilated bowel segments. Moderate stool in the colon. No gross abnormal bowel wall thickening or mesenteric inflammatory changes. MRI/Enterography Abd/Pel IMPRESSION: No definite acute findings in the abdomen/pelvis. No gross bowel wall thickening or abnormal inflammatory changes in the abdomen/pelvis, to strongly suggest active inflammatory bowel disease. Solid organs of the abdomen are unremarkable except for a nonenhancing 2.1 cm intraparenchymal cyst posterior mid left kidney. No dedicated imaging follow-up recommended. No abdominal/pelvic adenopathy or ascites. Reading Location: [facility] CC: Dr. Pepe Reyes MD; Chucky Woodall DO Certified Medical Dosimetrist: Signed Normal [facility] DARIO Comprehensive Panelon DARIO TABLE Comment Normal . [facility] Comment on above: Result Comment: Auto antibody Disease Association Condition Frequency --------- Antinuclear Antibody, SLE, mixed connective Direct (DARIO-D) tissue diseases --------- dsDNA SLE 40 - 60% --------- Chromatin Drug induced SLE 90% SLE 48 - 97% --------- SSA (Ro) SLE 25 - 35% Sjogren's Syndrome 40 - 70% Lupus 100% --------- SSB (La) SLE 10% Sjogren's Syndrome 30% --------- Sm (anti-Sepulveda) SLE 15 - 30% --------- PROFESSOR OF MARKETING Mixed Connective Tissue Disease 95% (U1 nRNP, SLE 30 - 50% anti-ribonucleoprotein) Polymyositis and/or Dermatomyositis 20% --------- Scl-70 (antiDNA Scleroderma (diffuse) 20 - 35% topoisomerase) Crest 13% --------- Gracia-1 Polymyositis and/or Dermatomyositis 20 - 40% --------- Centromere B Scleroderma - Crest variant 80% Performed By: #### L 3300.1800, L501.2450, L2100.0000, L3100.3425, L3410.1000, L3410.0900, L101.9900, L506.0250, L5500.0550, L3410.2400, L501.6710, L503.0105, L501.2400, L3100.5440, L3200.1100, L3300.1200 ####[facility] [address] [facility] [place], [place], [phone] ANCAon 07-04-2024 Atypical pANCA <1:20 Normal Neg:<1:20 [facility] Comment on above: Order Comment: N Result Comment: The atypical pANCA pattern has been observed in a significant percentage of patients with ulcerative colitis, primary sclerosing cholangitis and autoimmune hepatitis. Performed By: #### L 3300.1800, L501.2450, L2100.0000, L3100.3425, L3410.1000, L3410.0900, L101.9900, L506.0250, L5500.0550, L3410.2400, L501.6710, L503.0105, L501.2400, L3100.5440, L3200.1100, L3300.1200 ####[facility] [address] [place], [place], [phone] Cytoplasmic Ab <1:20 Normal Neg:<1:20 [facility] Comment on above: Order Comment: N Performed By: #### L 3300.1800, L501.2450, L2100.0000, L3100.3425, L3410.1000, L3410.0900, L101.9900, L506.0250, L5500.0550, L3410.2400, L501.6710, L503.0105, L501.2400, L3100.5440, L3200.1100, L3300.1200 ####[facility] [address] [place], [place], [phone] Perinuclear Ab. <1:20 Normal Neg:<1:20 [facility] Comment on above: Order Comment: N Result Comment: The presence of positive fluorescence exhibiting P-ANCA or C-ANCA patterns alone is not specific for the diagnosis of Dimitrios's Granulomatosis (WG) or microscopic polyangiitis. Decisions about treatment should not be based solely on ANCA IFA results. The International ANCA Group Consensus recommends follow up testing of positive sera with both AZ- 3 and MPO-ANCA enzyme immunoassays. As many as 5% serum samples are positive only by EIA. Ref. AM J Clin Pathol 1999;111:507-513. Performed By: #### L 3300.1800, L501.2450, L2100.0000, L3100.3425, L3410.1000, L3410.0900, L101.9900, L506.0250, L5500.0550, L3410.2400, L501.6710, L503.0105, L501.2400, L3100.5440, L3200.1100, L3300.1200 ####[facility] [address] [place], [place], [phone] Anti-Parietal Cell AB, QNon 07-04-2024 ANTIPARIET CELL 147.0 Units High 0.0-20.0 [facility] Comment on above: Order Comment: N Result Comment: Nega tive 0.0 - 20.0 Equivocal 20.1 - 24.9 Positive >24.9 Parietal Cell Antibodies are found in 90% of patients with pernicious anemia and 30% of first degree relatives with pernicious anemia. Performed By: #### L 3300.1800, L501.2450, L2100.0000, L3100.3425, L3410.1000, L3410.0900, L101.9900, L506.0250, L5500.0550, L3410.2400, L501.6710, L503.0105, L501.2400, L3100.5440, L3200.1100, L3300.1200 ####[facility] [address] [place], [place], [phone] Celiac Disease Profileon ENDOMYSIAL IGA Negative Normal Negative [facility] Comment on above: Order Comment: N Performed By: #### L 3300.1800, L501.2450, L2100.0000, L3100.3425, L3410.1000, L3410.0900, L101.9900, L506.0250, L5500.0550, L3410.2400, L501.6710, L503.0105, L501.2400, L3100.5440, L3200.1100, L3300.1200 ####[facility] [address] [place], [address] tTG IGA <2 Normal 0-3 [facility] Comment on above: Order Comment: N Result Comment: Nega tive 0 - 3 Weak Positive 4 - 10 Positive >10 Tissue Transglutaminase (tTG) has been identified as the endomysial antigen. Studies have demonstr- ated that endomysial IgA antibodies have over 99% specificity for gluten sensitive enteropathy. Performed By: #### L 3300.1800, L501.2450, L2100.0000, L3100.3425, L3410.1000, L3410.0900, L101.9900, L506.0250, L5500.0550, L3410.2400, L501.6710, L503.0105, L501.2400, L3100.5440, L3200.1100, L3300.1200 ####[facility] [address] [place], [place], [phone] Gastrin, Serumon 07-04-2024 GASTRIN 963 pg/mL High 0-115 [facility] Comment on above: Order Comment: N Result Comment: Siem [facility] Immulite 2000 Immunochemiluminometric assay (ICMA) Values obtained with different assay methods or kits cannot be used interchangeably. Results cannot be interpreted as absolute evidence of the presence or absence of malignant disease. Performed By: #### L 3300.1800, L501.2450, L2100.0000, L3100.3425, L3410.1000, L3410.0900, L101.9900, L506.0250, L5500.0550, L3410.2400, L501.6710, L503.0105, L501.2400, L3100.5440, L3200.1100, L3300.1200 ####[facility] [address] [place], [place], [phone] JOSE + Protein Elect, Serumon 07-04-2024 Albumin [Mass/Vol] 4.0 g/dL Normal 2.9-4.4 [facility] Comment on above: Order Comment: N Performed By: #### L 3300.1800, L501.2450, L2100.0000, L3100.3425, L3410.1000, L3410.0900, L101.9900, L506.0250, L5500.0550, L3410.2400, L501.6710, L503.0105, L501.2400, L3100.5440, L3200.1100, L3300.1200 ####[facility] [address] [place], [place], [phone] Albumin/Globulin [Mass ratio] 1.5 {ratio} Normal 0.7-1.7 [facility] Comment on above: Order Comment: N Performed By: #### L 3300.1800, L501.2450, L2100.0000, L3100.3425, L3410.1000, L3410.0900, L101.9900, L506.0250, L5500.0550, L3410.2400, L501.6710, L503.0105, L501.2400, L3100.5440, L3200.1100, L3300.1200 ####[facility] [address] [place], [place], [phone] LQEZR-8-PCKJ 0.3 g/dL Normal 0.0-0.4 [facility] Comment on above: Order Comment: N Performed By: #### L 3300.1800, L501.2450, L2100.0000, L3100.3425, L3410.1000, L3410.0900, L101.9900, L506.0250, L5500.0550, L3410.2400, L501.6710, L503.0105, L501.2400, L3100.5440, L3200.1100, L3300.1200 ####[facility] [address] [place], [place], [phone]) DYFQP-8-YGXH 0.8 g/dL Normal 0.4-1.0 [facility] Comment on above: Order Comment: N Performed By: #### L 3300.1800, L501.2450, L2100.0000, L3100.3425, L3410.1000, L3410.0900, L101.9900, L506.0250, L5500.0550, L3410.2400, L501.6710, L503.0105, L501.2400, L3100.5440, L3200.1100, L3300.1200 ####[facility] [address] [facility] [place], [place], [phone]) BETA GLOBULIN 1.1 g/dL Normal 0.7-1.3 [facility] Comment on above: Order Comment: N Performed By: #### L 3300.1800, L501.2450, L2100.0000, L3100.3425, L3410.1000, L3410.0900, L101.9900, L506.0250, L5500.0550, L3410.2400, L501.6710, L503.0105, L501.2400, L3100.5440, L3200.1100, L3300.1200 ####[facility] [address] [place], [place], [phone](083) GAMMA GLOBULIN 0.7 g/dL Normal 0.4-1.8 [facility] Comment on above: Order Comment: N Performed By: #### L 3300.1800, L501.2450, L2100.0000, L3100.3425, L3410.1000, L3410.0900, L101.9900, L506.0250, L5500.0550, L3410.2400, L501.6710, L503.0105, L501.2400, L3100.5440, L3200.1100, L3300.1200 ####[facility] [address] [place], [place], [phone] Globulin (S) [Mass/Vol] 2.8 g/dL Normal 2.2-3.9 [facility] Comment on above: Order Comment: N Performed By: #### L 3300.1800, L501.2450, L2100.0000, L3100.3425, L3410.1000, L3410.0900, L101.9900, L506.0250, L5500.0550, L3410.2400, L501.6710, L503.0105, L501.2400, L3100.5440, L3200.1100, L3300.1200 ####[facility] [address] [place], [place], [phone] JOSE RESULT,S Comment: Normal . [facility] Comment on above: Order Comment: N Result Comment: Pres ence of monoclonal protein is unclear at this time. Suggest repeat in 3 to 6 months if clinically indicated. Performed By: #### L 3300.1800, L501.2450, L2100.0000, L3100.3425, L3410.1000, L3410.0900, L101.9900, L506.0250, L5500.0550, L3410.2400, L501.6710, L503.0105, L501.2400, L3100.5440, L3200.1100, L3300.1200 ####[facility] [address] [place], [place], [phone] IMMUNOGLOB A QN 138 mg/dL Normal 64-422 [facility] Comment on above: Order Comment: N Performed By: #### L 3300.1800, L501.2450, L2100.0000, L3100.3425, L3410.1000, L3410.0900, L101.9900, L506.0250, L5500.0550, L3410.2400, L501.6710, L503.0105, L501.2400, L3100.5440, L3200.1100, L3300.1200 ####[facility] [address] [place], [address] IMMUNOGLOB G QN 802 mg/dL Normal 586-1602 [facility] Comment on above: Order Comment: N Performed By: #### L 3300.1800, L501.2450, L2100.0000, L3100.3425, L3410.1000, L3410.0900, L101.9900, L506.0250, L5500.0550, L3410.2400, L501.6710, L503.0105, L501.2400, L3100.5440, L3200.1100, L3300.1200 ####[facility] [address] [place], [address] IMMUNOGLOB M QN 39 mg/dL Normal 26-217 [facility] Comment on above: Order Comment: N Performed By: #### L 3300.1800, L501.2450, L2100.0000, L3100.3425, L3410.1000, L3410.0900, L101.9900, L506.0250, L5500.0550, L3410.2400, L501.6710, L503.0105, L501.2400, L3100.5440, L3200.1100, L3300.1200 ####[facility] [address] [place], [address] M-Alessandro Not Observed Normal Not Observed [facility] Comment on above: Order Comment: N Performed By: #### L 3300.1800, L501.2450, L2100.0000, L3100.3425, L3410.1000, L3410.0900, L101.9900, L506.0250, L5500.0550, L3410.2400, L501.6710, L503.0105, L501.2400, L3100.5440, L3200.1100, L3300.1200 ####[facility] [address] [place], [place], [id number] NOTE: Comment Normal . [facility] Comment on above: Order Comment: N Result Comment: Prot ein electrophoresis scan will follow via computer, mail, or landfill gas technician delivery. Performed By: #### L 3300.1800, L501.2450, L2100.0000, L3100.3425, L3410.1000, L3410.0900, L101.9900, L506.0250, L5500.0550, L3410.2400, L501.6710, L503.0105, L501.2400, L3100.5440, L3200.1100, L3300.1200 ####[facility] [address] [place], [place], [id number] Protein [Mass/Vol] 6.8 g/dL Normal 6.0-8.5 [facility] Comment on above: Order Comment: N Performed By: #### L 3300.1800, L501.2450, L2100.0000, L3100.3425, L3410.1000, L3410.0900, L101.9900, L506.0250, L5500.0550, L3410.2400, L501.6710, L503.0105, L501.2400, L3100.5440, L3200.1100, L3300.1200 ####[facility] [address] [place], [address] Immunoglobulins G/A/M/Angelito IMMUNOGLOB E QN 717 IU/mL High 6-495 [facility] Comment on above: Order Comment: N Performed By: #### L 3300.1800, L501.2450, L2100.0000, L3100.3425, L3410.1000, L3410.0900, L101.9900, L506.0250, L5500.0550, L3410.2400, L501.6710, L503.0105, L501.2400, L3100.5440, L3200.1100, L3300.1200 ####[facility] [address] [place], [place], [phone] Intrinsic Factor Abon 2024 INTRINS FACT AB 1.0 AU/mL Normal 0.0-1.1 [facility] Comment on above: Order Comment: N Result Comment: Perf ormed at: - [facility] [id number] Shop Helper: Reed Younger PhD, Phone: [phone] Performed at: [facility] [id number] Shop Helper: Ramon Scales MD, Phone: [phone] Performed By: #### L 3300.1800, L501.2450, L2100.0000, L3100.3425, L3410.1000, L3410.0900, L101.9900, L506.0250, L5500.0550, L3410.2400, L501.6710, L503.0105, L501.2400, L3100.5440, L3200.1100, L3300.1200 ####[facility] [address] [place], [place], [id number] L2100.0000on 07-04-2024 ACCA 12 units Normal 0-90 [facility] Comment on above: Order Comment: N Result Comment: Nega tive: <80 Equivocal: 80-90 Positive: >90 Performed By: #### L 3300.1800, L501.2450, L2100.0000, L3100.3425, L3410.1000, L3410.0900, L101.9900, L506.0250, L5500.0550, L3410.2400, L501.6710, L503.0105, L501.2400, L3100.5440, L3200.1100, L3300.1200 ####[facility] [address] [place], [place], [phone] ALCA 78 units Abnormal 0-60 [facility] Comment on above: Order Comment: N Result Comment: Nega tive:<55 Equivocal: 55-60 Positive: >60 Performed By: #### L 3300.1800, L501.2450, L2100.0000, L3100.3425, L3410.1000, L3410.0900, L101.9900, L506.0250, L5500.0550, L3410.2400, L501.6710, L503.0105, L501.2400, L3100.5440, L3200.1100, L3300.1200 ####[facility] [address] [place], [address] AMCA 13 units Normal 0-100 [facility] Comment on above: Order Comment: N Result Comment: Nega tive: <90 Equivocal: 90-100 Positive: >100 This test was developed and its performance characteristics determined by [facility]. It has not been cleared or approved by the Food and Drug Administration. The FDA has determined that such clearance or approval is not necessary. Performed By: #### L 3300.1800, L501.2450, L2100.0000, L3100.3425, L3410.1000, L3410.0900, L101.9900, L506.0250, L5500.0550, L3410.2400, L501.6710, L503.0105, L501.2400, L3100.5440, L3200.1100, L3300.1200 ####[facility] [address] [place], [address] Atypical pANCA Negative Normal Negative [facility] Comment on above: Order Comment: N Performed By: #### L 3300.1800, L501.2450, L2100.0000, L3100.3425, L3410.1000, L3410.0900, L101.9900, L506.0250, L5500.0550, L3410.2400, L501.6710, L503.0105, L501.2400, L3100.5440, L3200.1100, L3300.1200 ####[facility] [address] [place], [place], [address] COMMENT Comment Abnormal . [facility] Comment on above: Order Comment: N Result Comment: Sugg estive of Crohn's Disease. Pattern is not conclusive for disease behavior risk stratification. Performed By: #### L 3300.1800, L501.2450, L2100.0000, L3100.3425, L3410.1000, L3410.0900, L101.9900, L506.0250, L5500.0550, L3410.2400, L501.6710, L503.0105, L501.2400, L3100.5440, L3200.1100, L3300.1200 ####[facility] [address] [place], [place], [phone] Shant 37 units Normal 0-50 [facility] Comment on above: Order Comment: N Result Comment: Nega tive: <45 Equivocal: 45-50 Positive: >50 Performed By: #### L 3300.1800, L501.2450, L2100.0000, L3100.3425, L3410.1000, L3410.0900, L101.9900, L506.0250, L5500.0550, L3410.2400, L501.6710, L503.0105, L501.2400, L3100.5440, L3200.1100, L3300.1200 ####[facility] [address] [place], [place], [address] L5500.0550on 07-04-2024 BEEF <0.10 Normal Class 0 [facility] Comment on above: Performed By: #### L 3300.1800, L501.2450, L2100.0000, L3100.3425, L3410.1000, L3410.0900, L101.9900, L506.0250, L5500.0550, L3410.2400, L501.6710, L503.0105, L501.2400, L3100.5440, L3200.1100, L3300.1200 ####[facility] [address] [place], [place], [id number] CHOCOLATE <0.10 Normal Class 0 [facility] Comment on above: Performed By: #### L 3300.1800, L501.2450, L2100.0000, L3100.3425, L3410.1000, L3410.0900, L101.9900, L506.0250, L5500.0550, L3410.2400, L501.6710, L503.0105, L501.2400, L3100.5440, L3200.1100, L3300.1200 ####[facility] [address] [place], [address] CODFISH <0.10 Normal Class 0 [facility] Comment on above: Performed By: #### L 3300.1800, L501.2450, L2100.0000, L3100.3425, L3410.1000, L3410.0900, L101.9900, L506.0250, L5500.0550, L3410.2400, L501.6710, L503.0105, L501.2400, L3100.5440, L3200.1100, L3300.1200 ####[facility] [address] [place], [address] COMMENT Comment Normal . [facility] Comment on above: Result Comment: Emelia troncoso of Specific IgE Class Description of Class ----- < 0.10 0 Negative 0.10 - 0.31 0/I Equivocal/Low 0.32 - 0.55 I Low 0.56 - 1.40 II Moderate 1.41 - 3.90 III High 3.91 - 19.00 IV Very High 19.01 - 100.00 V Very High >100.00 Very High Performed By: #### L 3300.1800, L501.2450, L2100.0000, L3100.3425, L3410.1000, L3410.0900, L101.9900, L506.0250, L5500.0550, L3410.2400, L501.6710, L503.0105, L501.2400, L3100.5440, L3200.1100, L3300.1200 ####[facility] [address] [place], [place], [phone] CORN <0.10 Normal Class 0 [facility] Comment on above: Performed By: #### L 3300.1800, L501.2450, L2100.0000, L3100.3425, L3410.1000, L3410.0900, L101.9900, L506.0250, L5500.0550, L3410.2400, L501.6710, L503.0105, L501.2400, L3100.5440, L3200.1100, L3300.1200 ####[facility] [address] [place], [place], [phone] EGG, WHOLE 0.35 kU/L Abnormal Class I [facility] Comment on above: Result Comment: Perf ormed at: [address] [id number] Shop Helper: Reed Younger PhD, Phone: [phone] Performed at: [address] [id number] Shop Helper: Ramon Scales MD, Phone: [phone] Performed By: #### L 3300.1800, L501.2450, L2100.0000, L3100.3425, L3410.1000, L3410.0900, L101.9900, L506.0250, L5500.0550, L3410.2400, L501.6710, L503.0105, L501.2400, L3100.5440, L3200.1100, L3300.1200 ####[facility] [address] [place], [place], [phone] MILK (COW) <0.10 Normal Class 0 [facility] Comment on above: Performed By: #### L 3300.1800, L501.2450, L2100.0000, L3100.3425, L3410.1000, L3410.0900, L101.9900, L506.0250, L5500.0550, L3410.2400, L501.6710, L503.0105, L501.2400, L3100.5440, L3200.1100, L3300.1200 ####[facility] [address] [place], [place], [address] MUSSELS <0.10 Normal Class 0 [facility] Comment on above: Performed By: #### L 3300.1800, L501.2450, L2100.0000, L3100.3425, L3410.1000, L3410.0900, L101.9900, L506.0250, L5500.0550, L3410.2400, L501.6710, L503.0105, L501.2400, L3100.5440, L3200.1100, L3300.1200 ####[facility] [address] [place], [address] PEANUT <0.10 Normal Class 0 [facility] Comment on above: Performed By: #### L 3300.1800, L501.2450, L2100.0000, L3100.3425, L3410.1000, L3410.0900, L101.9900, L506.0250, L5500.0550, L3410.2400, L501.6710, L503.0105, L501.2400, L3100.5440, L3200.1100, L3300.1200 ####[facility] [address] [place], [place], [phone] PORK <0.10 Normal Class 0 [facility] Comment on above: Performed By: #### L 3300.1800, L501.2450, L2100.0000, L3100.3425, L3410.1000, L3410.0900, L101.9900, L506.0250, L5500.0550, L3410.2400, L501.6710, L503.0105, L501.2400, L3100.5440, L3200.1100, L3300.1200 ####[facility] [address] [place], [place], [phone] SALMON <0.10 Normal Class 0 [facility] Comment on above: Performed By: #### L 3300.1800, L501.2450, L2100.0000, L3100.3425, L3410.1000, L3410.0900, L101.9900, L506.0250, L5500.0550, L3410.2400, L501.6710, L503.0105, L501.2400, L3100.5440, L3200.1100, L3300.1200 ####[facility] [address] [place], [place], [phone] SHRIMP 0.19 kU/L Abnormal Class 0/I [facility] Comment on above: Performed By: #### L 3300.1800, L501.2450, L2100.0000, L3100.3425, L3410.1000, L3410.0900, L101.9900, L506.0250, L5500.0550, L3410.2400, L501.6710, L503.0105, L501.2400, L3100.5440, L3200.1100, L3300.1200 ####[facility] [address] [place], [place], [phone] SOYBEAN <0.10 Normal Class 0 [facility] Comment on above: Performed By: #### L 3300.1800, L501.2450, L2100.0000, L3100.3425, L3410.1000, L3410.0900, L101.9900, L506.0250, L5500.0550, L3410.2400, L501.6710, L503.0105, L501.2400, L3100.5440, L3200.1100, L3300.1200 ####[facility] [address] [place], [place], [id number] TUNA <0.10 Normal Class 0 [facility] Comment on above: Performed By: #### L 3300.1800, L501.2450, L2100.0000, L3100.3425, L3410.1000, L3410.0900, L101.9900, L506.0250, L5500.0550, L3410.2400, L501.6710, L503.0105, L501.2400, L3100.5440, L3200.1100, L3300.1200 ####[facility] [address] [place], [place], [address] WHEAT <0.10 Normal Class 0 [facility] Comment on above: Performed By: #### L 3300.1800, L501.2450, L2100.0000, L3100.3425, L3410.1000, L3410.0900, L101.9900, L506.0250, L5500.0550, L3410.2400, L501.6710, L503.0105, L501.2400, L3100.5440, L3200.1100, L3300.1200 ####[facility] [address] [place], [place], [id number] Calprotectin, Stoolon [address] 323 ug/g Abnormal 0-120 [facility] Comment on above: Result Comment: Conc entration Interpretation Follow-Up < 5 - 50 ug/g Normal None >50 -120 ug/g Borderline Re-evaluate in 4-6 weeks >120 ug/g Abnormal Repeat as clinically indicated Performed at: - [address] [id number] Shop Helper: Ramon Scales MD, Phone: [phone] Performed By: #### L 7000.0700 ####[facility] [address] [place], [address] Calprotectin stoolOrdered By : Chucky Woodall on 06-28-2024 Stool Calprotectin 323 ug/g High 0-120 [facility] Comment on above: Concentration Interp retation Follow-Up< 5 - 50 ug/g Normal None>50 -120 ug/g Borderline Re-evaluate in 4-6 weeks >120 ug/g Abnormal Repeat as clinically indicatedPerformed at: - [facility] [address] [id number] Director: Ramon Scales MD, Phone: [phone] ASCA IgG abOrdered By: Ana Woodall on 06-27-2024 Saccharomyces cerevisiae (Shant)IgG 37 units 0-50 [facility] Comment on above: Negative: <45 Equivo malorie: 45-50 Positive: >50 Addendum DocumentOrdered By: Chucky Woodall on 06-27-2024 Serum Immunofixation Comments Comment . [facility] Comment on above: Protein electrophore sis scan will follow via computer,mail, or landfill gas technician delivery. Albumin Elph [Mass/Vol]Order ed By: Chucky Woodall on 06-27-2024 Albumin [Mass/Vol] 4.0 g/dL 2.9-4.4 [facility] Alpha 1 globulin Elph [Mass/ Vol]Ordered By: Chucky Woodall on 06-27-2024 Yblry-0-Vycykykhk (JOSE) 0.3 g/dL 0.0-0.4 [facility] Bkwmk-8-Gcbtxvwvu (JOSE) 0.8 g/dL 0.4-1.0 [facility] Amylaseon 06-27-2024 LEEANNE 52 U/L Normal 25-115 [facility] Comment on above: Order Comment: N Performed By: #### L 3300.1800, L501.2450, L2100.0000, L3100.3425, L3410.1000, L3410.0900, L101.9900, L506.0250, L5500.0550, L3410.2400, L501.6710, L503.0105, L501.2400, L3100.5440, L3200.1100, L3300.1200 ####[facility] [address] [place], [address] Atypical perinuclear antineu trophil cytoplasmic antibodies measurementOrdered By: Chucky Woodall on 06-27-2024 Atypical p-ANCA <1:20 titer Neg:<1:20 [facility] Comment on above: *Additional results available. Contact laboratory/see report*The atypical pANCA pattern has been observed in asignificant percentage of patients with ulcerative colitis,primary sclerosing cholangitis and autoimmune hepatitis. Beef IgE Qn (S)Ordered By: Ada Woodall on 06-27-2024 Beef Allergen (RAST) <0.10 kU/L Class 0 [facility] Beta globulin Elph [Mass/Vol ]Ordered By: Chucky Woodall on 06-27-2024 Beta-Globulins (JOSE) 1.1 g/dL 0.7-1.3 [facility] C-reactive protein measureme nt by high sensitivity methodOrdered By: Chucky Woodall on 06-27-2024 C-Reactive Protein Extended Range < 2.90 mg/L 0.0-3.0 [facility] Comment on above: C-Reactive Protein ( CRP) provides useful information for thediagnosis, therapy and monitoring of inflammatory processesand associated diseases. For the evaluation of Relative Riskfor Cardiovascular Disease, a High Sensitivity CRP (HSCRP)should be ordered. CRPon 06-27-2024 C-REACTIVE PROT < 2.90 Normal 0.0-3.0 [facility] Comment on above: Order Comment: N Result Comment: C-Re active Protein (CRP) provides useful information for the diagnosis, therapy and monitoring of inflammatory processes and associated diseases. For the evaluation of Relative Risk for Cardiovascular Disease, a High Sensitivity CRP (HSCRP) should be ordered. Performed By: #### L 3300.1800, L501.2450, L2100.0000, L3100.3425, L3410.1000, L3410.0900, L101.9900, L506.0250, L5500.0550, L3410.2400, L501.6710, L503.0105, L501.2400, L3100.5440, L3200.1100, L3300.1200 ####[facility] [address] [place], [address] Centromere B antibody assayO rdered By: Chucky Woodall on 06-27-2024 Centromere B Antibody <0.2 AI 0.0-0.9 [facility] Comment on above: Previous reported re sult: TNP AIEdited by: CORWIN on 07/04/24:180 AMENDED REPORT 07/04/241806 ANTI-CENT B previously reported as: Test not performed Chitobioside IgA IA QnOrdere d By: Chucky Woodall on 06-27-2024 Chitobioside Carbohydrat (ACCA) IgA 12 units 0-90 [facility] Comment on above: Negative: <80 Equivo malorie: 80-90 Positive: >90 Chocolate IgE Qn (S)Ordered By: Chucky Woodall on 06-27-2024 Chocolate Allergen (RAST) <0.10 kU/L Class 0 [facility] Chromatin antibody assayOrde red By: Chucky Woodall on 06-27-2024 Antichromatin Antibodies <0.2 AI 0.0-0.9 [facility] Comment on above: Previous reported re sult: TNP AIEdited by: CORWIN on 07/04/24:1806 AMENDED REPORT 07/04/241806 ANTICHROMATIN previously reported as: Test not performed Codfish IgE Qn (S)Ordered By : Chucky Woodall on 06-27-2024 Codfish Allergen (RAST) <0.10 kU/L Class 0 [facility] [place] IgE Qn (S)Ordered By: Ada Woodall on 06-27-2024 [place] Allergen (RAST) <0.10 kU/L Class 0 [facility] Cow milk IgE Qn (S)Ordered B y: Chucky Woodall on 06-27-2024 Cow's Milk Allergen <0.10 kU/L Class 0 [facility] DNA double strand Ab Qn (S)O rdered By: Chucky Woodall on 06-27-2024 Anti-Double Strand DNA Antibody <1 IU/mL 0-9 [facility] Comment on above: Negative <5 Equivoca l 5 - 9 Positive >9Previous reported result: TNP IU/mLEdited by: CORWIN on 07/04/24:1806 AMENDED REPORT 07/04/241806 dsDNA AB previously reported as: Test not performed Endomysial IgA antibody assa yOrdered By: Chucky Woodall on 06-27-2024 Endomysial IgA Antibody Negative Negative [facility] Erythrocyte Sed Rateon 06-27 SED RATE 5 mm/hr Normal 0-30 [facility] Comment on above: Performed By: #### L 3300.1800, L501.2450, L2100.0000, L3100.3425, L3410.1000, L3410.0900, L101.9900, L506.0250, L5500.0550, L3410.2400, L501.6710, L503.0105, L501.2400, L3100.5440, L3200.1100, L3300.1200 ####[facility] [address] [place], [place], [phone] Erythrocyte sedimentation ra teOrdered By: Chucky Woodall on 06-27-2024 ESR (Bld) [Velocity] 5 mm/h 0-30 [facility] Folates, (Folic Acid)on 06-03 FOLATES 51.70 ng/mL Normal 3.1-55.4 [facility] Comment on above: Order Comment: N Performed By: #### L 3300.1800, L501.2450, L2100.0000, L3100.3425, L3410.1000, L3410.0900, L101.9900, L506.0250, L5500.0550, L3410.2400, L501.6710, L503.0105, L501.2400, L3100.5440, L3200.1100, L3300.1200 ####[facility] [address] [place], [place], [phone] Folic acid measurementOrdere d By: Chucky Woodall on 06-27-2024 Folate 51.70 ng/mL 3.1-55.4 [facility] Gamma globulin Elph [Mass/Vo l]Ordered By: Chucky Woodall on 06-27-2024 Gamma Globulins (JOSE) 0.7 g/dL 0.4-1.8 [facility] Gastrin [Mass/Vol]Ordered By : Chucky Woodall on 06-27-2024 Gastrin 963 pg/mL High 0-115 [facility] Comment on above: Siemens Immulite 200 0 Immunochemiluminometric assay (ICMA)Values obtained with different assay methods or kits cannotbe used interchangeably. Results cannot be interpreted asabsolute evidence of the presence or absence of malignantdisease. Gastroenterology Visit Repor ton 06-27-2024 Gastroenterology Visit Report [facility] [address] [place] [address] OFFICE VISIT Date of Service: 06/27/24 MR#: [id number] Acct: [id number] Name: ROMAN KUHN Rep #: [id number] : 1950 Provider: Chucky Woodall DO Age/Sex: 73/F Location: [facility] [place].[facility]I Status: Signed Intake Vital Signs 05/26/24 07:43 Height 5 ft 3 in Intake Visit Reasons: Gastroesophageal reflux disease (GERD) Allergies citalopram (From Celexa) Allergy (Unknown, Verified 05/26/24 07:43) PT UNSURE OF REACTION clarithromycin (From Biaxin) Allergy (Unknown, Verified 05/26/24 07:43) PT UNABLE TO RESPOND-NEEDS F/U sulfamethoxazole (From Bactrim) Allergy (Unknown, Verified 05/26/24 07:43) PT UNSURE OF REACTION trimethoprim (From Bactrim) Allergy (Unknown, Verified 05/26/24 07:43) PT UNSURE OF REACTION atorvastatin (From Lipitor) Allergy (Verified 05/26/24 07:43) PT UNSURE OF REACTION cefixime (From Suprax) Allergy (Verified 05/26/24 07:43) PT UNABLE TO RESPOND-NEEDS F/U chlorzoxazone (From Parafon Forte) Allergy (Verified 05/26/24 07:43) PT UNSURE OF REACTION ciprofloxacin (From Cipro) Allergy (Verified 05/26/24 07:43) PT UNABLE TO RESPOND-NEEDS F/U diclofenac (From Voltaren) Allergy (Verified 05/26/24 07:43) PT UNABLE TO RESPOND-NEEDS F/U flavoxate (From Urispas) Allergy (Verified 05/26/24 07:43) PT UNABLE TO RESPOND-NEEDS F/U guaifenesin (From Entex [place]) Allergy (Verified 05/26/24 07:43) PT UNABLE TO RESPOND-NEEDS F/U hyoscyamine (From Levsinex) Allergy (Verified 05/26/24 07:43) PT UNSURE OF REACTION moxifloxacin (From Avelox) Allergy (Verified 05/26/24 07:43) PT UNSURE OF REACTION paroxetine (From Paxil) Allergy (Verified 05/26/24 07:43) PT UNSURE OF REACTION phenylephrine (From Entex [place]) Allergy (Verified 05/26/24 07:43) PT UNABLE TO RESPOND-NEEDS F/U phenylpropanolamine (From Entex [place]) Allergy (Verified 05/26/24 07:43) PT UNABLE TO RESPOND-NEEDS F/U Sulfa (Sulfonamide Antibiotics) Allergy (Verified 05/26/24 07:43) PT UNABLE TO RESPOND-NEEDS F/U Medications ???Medication ???Instructions ???Recorded ???Confirmed ???Type ondansetron 4 mg disintegrating 4 mg PO Q8H PRN PRN Nausea #10 tabs 05/26/24 Rx tablet colestipol 1 gram tablet 1 g PO QDAY 06/27/24 06/27/24 History famotidine 20 mg tablet 20 mg PO QDAY 06/27/24 06/27/24 History levothyroxine 112 mcg capsule 112 mcg PO QDAY 06/27/24 06/27/24 History pantoprazole 40 mg tablet,delayed 40 mg PO QDAY 06/27/24 06/27/24 History release pravastatin 40 mg tablet 40 mg PO QDAY 06/27/24 06/27/24 History Have you fallen in the past year?: No PFSH Medical History (Updated 06/27/24 @ 14:[address] Locke Friend, DO) IBS (irritable bowel syndrome) GERD (gastroesophageal reflux disease) Surgical History History of cholecystectomy History of partial hysterectomy Social History Smoking Status: Current every day smoker tobacco type: cigarettes HPI HPI Details: ROMAN KUHN, is a 73 F who presents to the office today for initial consult. *BGI established 06.27.24 Pt reports long history of IBS and GERD. Pt reports being on antibiotics and steroids in the past few weeks and feels this has exacerbated her symptoms. Pt reported daily use of miralax and benefiber, usually has a daily bm. Pt reports increased nausea with constipation. Pt states that she was told she has an extra 10 inches of intestines and wonders if this is affecting her digestion. ROS Const Constitutional: Positive for fatigue; No fever(s) or weight change ENT ENT: No difficulty swallowing Cardio Cardiology: Positive for leg pain with exertion Gastro GI: Positive for bloating, constipation, excessive flatus and nausea/dyspepsia; No abdominal pain, belching, change in bowel habits, change in stool character, coffee ground emesis, cramping, diarrhea, heartburn, difficulty swallowing, feeling full early, incontinent of stools, Vomiting blood/hematemesis, Blood in stool, loose stools, Black,tarry stools, pain with swallowing, vomiting or other Musc Musculoskeletal: Positive for joint pain, back pain, stiffness, Arthritis and leg pain with exertion Skin Skin: Positive for dry skin; No yellowing of the eye or itchy eyes Psych Psychiatric: No anxiety and No depression Endo Endocrine: Positive for fatigue; No weight change Aller/Imm Allergy/Immunologic: No itchy eyes Rolo/Lymp Hematologic/Lymphatic: Positive for easy bruising; No easy bleeding Exam Const General: cooperative, healthy appearing, comfortable, no acute distress, well developed and well groomed Nutritional Appearance: average body habitus and well nourished Orientation: alert, awake and oriented x3 Limitations: altered mental sta (more content not included)... Normal [facility] IgA [Mass/Vol]Ordered By: Ra ashley Woodall on 06-27-2024 Immunoglobulin A 138 mg/dL 64-422 [facility] IgEOrdered By: Chucky George mando on 06-27-2024 Immunoglobulin E 717 IU/mL High 6-495 [facility] IgG [Mass/Vol]Ordered By: Ra ramirez Talisha on 06-27-2024 Immunoglobulin G 802 mg/dL [id number] [facility] Immunoglobulin M measurement Ordered By: Chuckyedd oWodall on 06-27-2024 Immunoglobulin M 39 mg/dL 26-217 [facility] Interpretation IEP [Interp]O rdered By: Chuckyedd Woodall on 06-27-2024 Immunofixation Screen Comment: . [facility] Comment on above: Presence of monoclon al protein is unclear at this time. Suggestrepeat in 3 to 6 months if clinically indicated. Intrinsic factor abOrdered B y: Chuckyedd Woodall on 06-27-2024 Intrinsic Factor Antibody 1.0 AU/mL 0.0-1.1 [facility] Comment on above: Performed at: [facility] [address] [id number] Director: Reed Younger PhD, Phone: [phone] at: [facility] [place] [id number] Director: Ramon Scales MD, Phone: [phone] Gracia-1 antibody assayOrdered B y: Chucky Talisha on 06-27-2024 GRACIA-1 Antibody <0.2 AI 0.0-0.9 [facility] Comment on above: Previous reported re sult: TNP AIEdited by: CORWIN on 07/04/24:1807 AMENDED REPORT 07/04/24 180 ANTI-GRACIA previously reported as: Test not performed Laboratory comment Cody (Repo rt)Ordered By: Chuckymaría elena Woodall on 06-27-2024 IBD Serology Comment Comment High . [facility] Comment on above: Suggestive of Crohn' s Disease. Pattern is not conclusivefor disease behavior risk stratification. Laminaribioside IgG IA QnOrd ered By: Chuckymaría elena Woodall on 06-27-2024 Laminaribioside Carbohyd (ALCA) IgG 78 units High 0-60 [facility] Comment on above: Negative:<55 Equivoc al: 55-60 Positive: >60 Lipaseon 06-27-2024 Lipase [Catalytic activity/Vol] 45 U/L Normal - [facility] Comment on above: Order Comment: N Result Comment: Moe haney note: LIPASE revised reference range effective 22. New Lipase methodology. Expected to produce lower values than the previous assay method. NEW Reference Range: 13 - 75 U/L Performed By: #### L 3300.1800, L501.2450, L2100.0000, L3100.3425, L3410.1000, L3410.0900, L101.9900, L506.0250, L5500.0550, L3410.2400, L501.6710, L503.0105, L501.2400, L3100.5440, L3200.1100, L3300.1200 ####[facility] [address] [place], [address] Lipase measurementOrdered By : Chucky Woodall on 06-27-2024 Lipase [Catalytic activity/Vol] 45 U/L - [facility] Comment on above: Please note:LIPASE r evised reference range effective 22. New Lipase methodology. Expected to produce lower values than the previous assay method. NEW Reference Range: 13 - 75 U/L Mannobioside IgG IA QnOrdere d By: Chucky Woodall on 06-27-2024 Mannobioside Carbohydrat (AMCA) IgG 13 units 0-100 [facility] Comment on above: Negative: <90 Equivo malorie: 90-100 Positive: >100 This test was developed and its performance characteristics determined by [facility]. It has not been cleared or approved by the Food and Drug Administration. The FDA has determined that such clearance or approval is not necessary. Neutrophil cytoplasmic Ab.cl assic Qn (S)Ordered By: Chucky Woodall on 06-27-2024 Cytoplasmic ANCA (c-ANCA) Antibody <1:20 titer Neg:<1:20 [facility] Neutrophil cytoplasmic Ab.pe rinuclear IF (S) [Titer]Ordered By: Chucky Woodall on 06-27-2024 Perinuclear ANCA (p-ANCA) Antibody <1:20 titer Neg:<1:20 [facility] Comment on above: The presence of posi tive fluorescence exhibiting P-ANCA orC-ANCA patterns alone is not specific for the diagnosis ofWegener's Granulomatosis (WG) or microscopic polyangiitis.Decisions about treatment should not be based solely onANCA IFA results. The International ANCA Group Consensusrecommends follow up testing of positive sera with both AZ-3 and MPO-ANCA enzyme immunoassays. As many as 5% serumsamples are positive only by EIA. Ref. AM J Clin Ynglxa2065;111:507-513. Parietal cell Ab Qn (S)Order ed By: Chucky Woodall on 06-27-2024 Anti-Parietal Cell Antibody 147.0 Units High 0.0-20.0 [facility] Comment on above: Negative 0.0 - 20.0 Equivocal 20.1 - 24.9 Positive >24.9Parietal Cell Antibodies are found in 90% of patientswith pernicious anemia and 30% of first degreerelatives with pernicious anemia. Peanut IgE Qn (S)Ordered By: Chucky Woodall on 06-27-2024 Peanut Allergen (RAST) <0.10 kU/L Class 0 [facility] Pork IgE Qn (S)Ordered By: Ada Woodall on 06-27-2024 Pork Allergen (RAST) <0.10 kU/L Class 0 [facility] Protein Fractions Immunofixa tion Cody [Interp]Ordered By: Chucky Woodall on 06-27-2024 M-Alessandro (JOSE) Not Observed g/dL Not Observed [facility] PROFESSOR OF MARKETING abOrdered By: Chucky Dyer iend on 06-27-2024 PROFESSOR OF MARKETING Antibody 0.2 AI 0.0-0.9 [facility] Comment on above: Previous reported re sult: TNP AIEdited by: CORWIN on 07/04/24:1806 AMENDED REPORT 07/04/241806 PROFESSOR OF MARKETING Ab previously reported as: Test not performed SCL-70 extractable nuclear A b Qn (S)Ordered By: Chucky Woodall on 06-27-2024 Scl-70 (Scleroderma) Antibody <0.2 AI 0.0-0.9 [facility] Comment on above: Previous reported re sult: TNP AIEdited by: CORWIN on 07/04/24:1807 AMENDED REPORT 07/04/241806 ANTISCLER previously reported as: Test not performed SS-A IgG antibody assayOrder ed By: Chucky Woodall on 06-27-2024 SS-A/Ro IgG Antibody < 0.2 AI 0.0-0.9 [facility] Comment on above: Previous reported re sult: TNP AIEdited by: CORWIN on 07/04/24:1807 AMENDED REPORT 07/04/241806 Anti-SS-A previously reported as: Test not performed SS-B IgG antibody assayOrder ed By: Chucky Woodall on 06-27-2024 SS-B/La IgG Antibody < 0.2 AI 0.0-0.9 [facility] Comment on above: Previous reported re sult: TNP AIEdited by: CORWIN on 07/04/24:1807 AMENDED REPORT 07/04/241806 Anti-SS-B previously reported as: Test not performed Elmo IgE Qn (S)Ordered By: Chucky Woodall on 06-27-2024 Elmo Allergen IgE Antibody <0.10 kU/L Class 0 [facility] Serum albumin/globulin ratio Ordered By: Chucky Woodall on 06-27-2024 Albumin/Globulin (JOSE) 1.5 0.7-1.7 [facility] Serum globulin measurement ( mass/volume)Ordered By: Chucky Woodall on 06-27-2024 Globulin (S) [Mass/Vol] 2.8 g/dL 2.2-3.9 [facility] Serum mussel specific IgE an tibody assayOrdered By: Chucky Woodall on 06-27-2024 Mussel Allergen IgE Antibody <0.10 kU/L Class 0 [facility] Serum or plasma amylase olivia urement (enzymatic activity/volume)Ordered By: Chucky Woodall on 06-27-2024 Amylase [Catalytic activity/Vol] 52 U/L 25-115 [facility] Serum or plasma protein olivia urement (mass/volume)Ordered By: Chucky Woodall on 06-27-2024 Protein [Mass/Vol] 6.8 g/dL 6.0-8.5 [facility] Serum shrimp specific IgE an tibody assayOrdered By: Chucky Woodall on 06-27-2024 Shrimp Allergen 0.19 kU/L High Class 0/I [facility] Service comment (Unsp spec) [Interp]Ordered By: Chucky Woodall on 06-27-2024 RAST Comment Comment . [facility] Comment on above: Levels of Specific I gE Class Description of Class ----- < 0.10 0 Negative 0.10 - 0.31 0/I Equivocal/Low 0.32 - 0.55 I Low 0.56 - 1.40 II Moderate 1.41 - 3.90 III High 3.91 - 19.00 IV Very High 19.01 - 100.00 V Very High >100.00 Very High Sepulveda antibody assayOrdered By: Chucky Woodall on 06-27-2024 SM Antibody <0.2 AI 0.0-0.9 [facility] Comment on above: Previous reported re sult: TNP AIEdited by: CORWIN on 07/04/24:1807 AMENDED REPORT 07/04/241806 SEPULVEDA Ab previously reported as: Test not performed Soybean IgE Qn (S)Ordered By : Chucky Woodall on 06-27-2024 Soybean Allergen (RAST) <0.10 kU/L Class 0 [facility] Tuna IgE Qn (S)Ordered By: Ada Woodall on 06-27-2024 Tuna Allergen (RAST) <0.10 kU/L Class 0 [facility] Vitamin B12on 06-27-2024 Cobalamin (Vitamin B12) [Mass/Vol] 766 pg/mL Normal 211-911 [facility] Comment on above: Performed By: #### L 3300.1800, L501.2450, L2100.0000, L3100.3425, L3410.1000, L3410.0900, L101.9900, L506.0250, L5500.0550, L3410.2400, L501.6710, L503.0105, L501.2400, L3100.5440, L3200.1100, L3300.1200 ####[facility] [address] [place], [address] Vitamin B12 measurementOrder ed By: Chucky Woodall on 06-27-2024 Cobalamin (Vitamin B12) [Mass/Vol] 766 pg/mL 211-911 [facility] Wheat IgE Qn (S)Ordered By: Chucky Woodall on 06-27-2024 Wheat Allergen (RAST) <0.10 kU/L Class 0 [facility] Whole Egg IgE Qn (S)Ordered By: Chucky Woodall on 06-27-2024 Egg Whole Allergen 0.35 kU/L High Class I [facility] Comment on above: Performed at: [address] [id number] Director: Reed Younger PhD, Phone: [phone] at: [facility] [address] [id number] Director: Ramon Scales MD, Phone: [phone] tTG IgA Qn (S)Ordered By: Ra ashley Woodall on 06-27-2024 Tissue Transglutaminase IgA Ab <2 U/mL 0-3 [facility] Comment on above: Negative 0 - 3 Weak Positive 4 - 10 Positive >10 Tissue Transglutaminase (tTG) has been identified as the endomysial antigen. Studies have demonstr- ated that endomysial IgA antibodies have over 99% specificity for gluten sensitive enteropathy. CNOVon 06-10-2024 CNOV Office Visit (FAMPWS ) ROMAN KUHN ([id number]) 1950 F Date Time Provider Department 06/10/24 2:00 PM PEPE REYES During your visit today, we recorded the following information about you: Pulse Respiration Blood pressure Weight 78/minute 16/minute 120/70 57.2 kg Pepe Reyes MD 06/10/2024 2:31 PM Signed Chief Complaint Patient presents with: ED Follow-up: Abdominal pain HPI Roman Kuhn is a 73 year old female who presents here today for ER Follow Up. Pt was at [facility] ER on 05/26/24 for abdominal pain, gastroenteritis noninfectious. She had been treated with antibiotics for sinus bronchitis and covid prior to the abdominal pain. She was taking a lot of Excedrin when she was since with sinus issues. Gets her ears cleaned out by Dr. Rush with [facility]. She feels that the sinus issues have improved, right side is working much better. Denies any residual effects from Covid. Has appt 06/27/24 to see [facility] to get established with him. She saw her chiropractor the following week and they sold her a probiotic which has been helping with the bowels, less frequent, moving better with less straining and less angry. She is not burping and farting as much as she usually does. She thinks she is going to continue with the Probiotic along with her Colestid, Protonix, and Pepcid. She started taking Prevagen, feels this is helping with her memory. Below copied from Certain: Chief Complaint: Abd Pain Informant: patient Narrative Narrative: Patient is a 73-year-old female presenting with diffuse abdominal pain. Patient states that she is on her last day of doxycycline and finished a course of prednisone yesterday. She was on it for sinusitis. Though symptoms have improved however she is been having worsening GI symptoms for the past few days. She notes that she felt nauseous on Monday, 5 days ago and started to have discomfort from her throat down all the way to her rectum. She states her abdomen just feels bloated and her entire GI tract feels hot. She has previously seen GI through [facility] and started taking her colestipol 3 times a day as well as daily MiraLAX and Benefiber. 2 days ago she took Colace because she still felt like nothing was moving in her stomach and then took a Grimes'. She states she usually tries to avoid taking any stimulant laxatives. She notes yesterday evening she started having copious soft serve style bowel movements. She notes it is a little darker than normal but denies any black or blood in her stool. She is been feeling fatigued. She took an Imodium this morning in anticipation of coming to the emergency room. She denies any fevers. Does have a prior history of cholecystectomy and partial hysterectomy. States she is a diagnosis of IBS and GERD and in the 90s did have some rectal bleeding inflammatory condition that she had to take medicine for and use suppositories. She is not sure if she has an actual history of Crohn disease, ulcerative colitis or other inflammatory bowel disorder. No other complaints or concerns reported at this time. Medical decision making narrative: Patient evaluated for diffuse abdominal pain as well as burning esophageal and stomach pain. Has been on recent doxycycline and prednisone. Has had abnormal bowel movements. Differential includes referred ACS, diverticulitis, ileus, pancreatitis, choledocholithiasis, urinary tract infection, inflammatory bowel disease as well as irritable bowel syndrome. Patient declines any medications at this time. Will obtain lab work including CBC, CMP, lipase and urinalysis, CT abdomen pelvis and EKG. Patient is a mild leukocytosis of 13.1. Is unclear if this is elevated from a recent course of prednisone, reactive or associate with acute infection. She is not have a shift. CMP and lipase normal. Urinalysis largely normal not consistent with infection. CT of the abdomen and pelvis does show nondistended fluid-filled small and large bowel loop suggestive of diffuse enteritis. There is also sigmoid diverticulosis without evidence of acute diverticulitis. On repeat evaluation patient is resting comfortably. Given the diffuse enteritis did order stool studies. Patient able to provide us very small stool sample. She will be discharged home with a stool studies pending. I will contact her with the results. Is given dose of Zofran prior to discharge and will prescribe her a course of this. Is encouraged to follow-up with her GI specialist and she might require repeat colonoscopy. Not clear if this is a viral syndrome, infectious enteritis, or irritation/IBS associated with her recent antibiotics and steroids. Since that she is also having some reflux symptoms. At this time will defer further antibiotics or medications. Patient is already on both Pepcid and (more content not included)... Normal [facility] 12 Lead EKGon 05-26-2024 [address] [facility] Cardiovascular Services [address] [place] [address] 12 Lead EKG 05/26/24 0832 MR#: [id number] Acct: [id number] Name: ROMAN KUHN Rep #: [id number] : 1950 73 From: Rochelle Stallings MD Attending Dr: Status: DEP ER Ordering Dr: Yas Winchester DO Date: 05/26/24 Location: ED Sex: F C Admitted: Test Reason : Blood Pressure : */* mmHG Vent. Rate : 95 BPM Atrial Rate : 95 BPM P-R Int : 164 ms QRS Dur : 90 ms QT Int : 356 ms P-R-T Axes : 27 -11 56 degrees QTcB Int : 447 ms Normal sinus rhythm Normal ECG Confirmed by Rochelle Stallings ([id number]), video tape editor AMRIELOS IBARRA ([id number]) on 05/28/2024 10:27:58 AM Referred By: Confirmed By: Rochelle Stallings 05/28/24 1027 Date Rochelle Stallings MD CC: Dr. Yas Winchester DO; Dr. Pepe Reyes MD Signed Normal [facility] Abdomen/Pelvis W IV Cont ONL Yon 05-26-2024 Abdomen/Pelvis W IV Cont ONLY [facility] Imaging Services [address] [place] [address] Abdomen/Pelvis W IV Cont ONLY MR#: [id number] Acct: [id number] Name: ROMAN KUHN Rep #: [id number] : 1950 F 73 From: Jason Mahajan MD PCP: Dr. Pepe Reyes MD Status: REG ER Study: Abdomen/Pelvis W IV Cont ONLY Date of Exam: Exam# [id number] Ordering Dr: Yas Winchester DO :[id number] STUDY: CT ABDOMEN AND PELVIS WITH CONTRAST REASON FOR EXAM: Female, 73 years old. Diffuse abdominal pain RADIATION DOSAGE (If Supplied By Facility): CTDIvol = ( 24.97 ) mGy, DLP = ( 474.73 ) mGycm TECHNIQUE: Transaxial images were obtained from the dome of the diaphragm to the symphysis pubis without oral contrast. IV 100mL Isovue-370 was administered. Sagittal and coronal images were reconstructed. Individualized dose optimization techniques were used for this CT. COMPARISON: None. FINDINGS: The visualized lung bases are unremarkable. The visualized portions of the heart are within normal limits. Normal liver. There is non-visualization of the gallbladder, which may be secondary to either contraction or a prior cholecystectomy. Normal spleen. Normal pancreas. Normal bilateral adrenal glands. Both kidneys show prominent renal pelvis but no obstructive uropathy. There is a simple 2.5 cm left renal cyst. Normal visualized stomach. Nondistended fluid-filled small and large bowel loops suggest diffuse enteritis. Extensive sigmoid diverticulosis without CT evidence of acute diverticulitis, an underlying lesion cannot be excluded. Normal appendix seen on coronal recon images 46 through 57. Normal abdominal aorta. Normal inferior vena cava. Normal retroperitoneum. Normal urinary bladder. Normal abdominal wall. There are diffuse degenerative changes of the visualized lumbar spine, and pelvis, there is a grade 1 spondylolisthesis at L5/S1.. CT/Abdomen/Pelvis W IV Cont ONLY IMPRESSION: Nondistended fluid-filled small and large bowel loops suggest diffuse enteritis. There is extensive sigmoid diverticulosis without CT evidence of acute diverticulitis. However, an underlying lesion within the sigmoid cannot be excluded. 2.5 cm simple left renal cyst, no specific follow-up needed. No free intraperitoneal fluid, air, or suspicious adenopathy, normal appendix visualized Electronically Signed: David Mahajan MD at 9:39 EST , CC: Dr. Yas Winchester DO; Dr. Pepe Reyes MD Certified Medical Dosimetrist: Signed Normal [facility] Absolute neutrophil countOrd ered By: Yas Winchester on 05-26-2024 Neutrophils (Bld) [#/Vol] 5.9 10*3/uL 2.0-7.7 [facility] Albumin to globulin ratioOrd ered By: Yas Winchester on 05-26-2024 Albumin/Globulin [Mass ratio] 1.2 {ratio} 0.9-2.4 [facility] Basophil percentageOrdered B y: Yas Winchester on 05-26-2024 Basophils/100 WBC (Bld) 0.5 % 0-1 [facility] Bilirubin Test strip Ql (U)O rdered By: Yas Winchester on 05-26-2024 Bilirubin Ql (U) Negative Negative [facility] Bilirubin, totalOrdered By: Yas Winchester on 05-26-2024 Bilirubin [Mass/Vol] 0.50 mg/dL 0.20-1.00 [facility] Comment on above: For patients on eltr ombopag therapy, use of Dimension [place] TBIL is not recommended. Blood urea nitrogen (BUN)/cr eatinine ratioOrdered By: Yas Winchester on 05-26-2024 Urea nitrogen/Creatinine [Mass ratio] 11.7 mg/mg 10-20 [facility] C. difficile DNA BESS+probe Q l (Unsp spec)Ordered By: Yas Winchester on 05-26-2024 Clostridioides difficile (PCR) [facility] CBC W/Diff, Automatedon 05-04 Absolute Lymph 5.61 X10 3/uL High 0.83-4.51 [facility] Comment on above: Performed By: #### L 500.4050, L100.0100, L501.7770 #### [facility] [address] [place], [place], [id number] Absolute Neut 5.9 X10 3/uL Normal 2.0-7.7 [facility] Comment on above: Performed By: #### L 500.4050, L100.0100, L501.2450 #### [facility] [address] [place], [address] Basophils/100 WBC (Bld) 0.5 % Normal 0-1 [facility] Comment on above: Performed By: #### L 500.4050, L100.0100, L501.2450 #### [facility] [address] [place], [address] Eosinophils/100 WBC (Bld) 1.5 % Normal 0-5 [facility] Comment on above: Performed By: #### L 500.4050, L100.0100, L501.2450 #### [facility] [address] [place], [address] Erythrocyte distribution width (RBC) [Ratio] 13.5 % Normal 11.6-14.6 [facility] Comment on above: Performed By: #### L 500.4050, L100.0100, L501.2450 #### [facility] [address] [place], [address] Hematocrit (Bld) [Volume fraction] 42.1 % Normal 37-47 [facility] Comment on above: Performed By: #### L 500.4050, L100.0100, L501.2450 #### [facility] [address] [place], [address] Hemoglobin (Bld) [Mass/Vol] 14.0 g/dL Normal 12.0-15.0 [facility] Comment on above: Performed By: #### L 500.4050, L100.0100, L501.2450 #### [facility] [address] [place], [address] IG% 0.500 Normal 0.0-0.9 [facility] Comment on above: Result Comment: IG% - Immature Granulocytes (promyelocytes, myelocytes and metamyelocytes) > 1% indicates that a LEFT SHIFT is Present. Performed By: #### L 500.4050, L100.0100, L501.2450 #### [facility] [address] [place], [address] Lymphocytes/100 WBC (Bld) 43.0 % High 19-41 [facility] Comment on above: Performed By: #### L 500.4050, L100.0100, L501.2450 #### [facility] [address] [place], [address] MCH (RBC) [Entitic mass] 32.1 pg High 27.0-32.0 [facility] Comment on above: Performed By: #### L 500.4050, L100.0100, L501.2450 #### [facility] [address] [place], [address] MCHC (RBC) [Mass/Vol] 33.3 g/dL Normal 32-36 [facility] Comment on above: Performed By: #### L 500.4050, L100.0100, L501.2450 #### [facility] [address] [place], [address] MCV (RBC) [Entitic vol] 96.6 fL Normal 81-99 [facility] Comment on above: Performed By: #### L 500.4050, L100.0100, L501.2450 #### [facility] [address] [place], [address] Monocytes/100 WBC (Bld) 9.3 % Normal 0-10 [facility] Comment on above: Performed By: #### L 500.4050, L100.0100, L501.2450 #### [facility] [address] [place], [address] Neutrophils/100 WBC (Bld) 45.2 % Low 47-70 [facility] Comment on above: Performed By: #### L 500.4050, L100.0100, L501.2450 #### [facility] [address] [place], [address] Nucleated RBC (Bld) [#/Vol] 0 10*3/uL Normal 0-5 [facility] Comment on above: Performed By: #### L 500.4050, L100.0100, L501.2450 #### [facility] [address] [place], [address] Platelet mean volume (Bld) [Entitic vol] 8.3 fL Normal 6.2-12.0 [facility] Comment on above: Performed By: #### L 500.4050, L100.0100, L501.2450 #### [facility] [address] [place], [address] Platelets (Bld) [#/Vol] 285 10*3/uL Normal 150-450 [facility] Comment on above: Performed By: #### L 500.4050, L100.0100, L501.2450 #### [facility] [address] [place], [address] RBC (Bld) [#/Vol] 4.36 10*6/uL Normal 4.2-5.4 [facility] Comment on above: Performed By: #### L 500.4050, L100.0100, L501.2450 #### [facility] [address] [place], [address] RDW SD 48.2 fl High 35.1-43.9 [facility] Comment on above: Performed By: #### L 500.4050, L100.0100, L501.2450 #### [facility] [address] [place], [address] WBC (Bld) [#/Vol] 13.1 10*3/uL High 4.4-11.0 [facility] Comment on above: Performed By: #### L 500.4050, L100.0100, L501.2450 #### [facility] [address] [place], [address] CDIFF (PCR)on 05-26-2024 CDIFF Is the patient recei ving laxatives? N New/unexplained onset of 3 or more stools in past 24 hrs? N Pending 027 027 NAP1-B1 Presumptive Negative *for epidemiolologic???use C. Diff PCR Negative- No toxigenic C. Diff Detected Normal [facility] Comment on above: Performed By: #### L 400.0001 #### [facility] [address] [place], [address] Carbon dioxide measurementOr dered By: Yas Winchester on 05-26-2024 CO2 [Moles/Vol] 27.0 mmol/L 21.0-32.0 [facility] Chloride measurementOrdered By: Yas Winchester on 05-26-2024 Chloride [Moles/Vol] 105 mmol/L 98-107 [facility] Comprehensive Metabolic Prof ilon 05-26-2024 Albumin [Mass/Vol] 3.6 g/dL Normal 3.2-5.0 [facility] Comment on above: Performed By: #### L 500.4050, L100.0100, L501.2450 #### [facility] [address] [place], [address] Albumin/Globulin [Mass ratio] 1.2 {ratio} Normal 0.9-2.4 [facility] Comment on above: Performed By: #### L 500.4050, L100.0100, L501.2450 #### [facility] [address] [place], [address] ALK P 67 U/L Normal 45-117 [facility] Comment on above: Performed By: #### L 500.4050, L100.0100, L501.2450 #### [facility] [address] [place], [address] ALT [Catalytic activity/Vol] 27 U/L Normal 13-56 [facility] Comment on above: Performed By: #### L 500.4050, L100.0100, L501.2450 #### [facility] [address] [place], [address] AST [Catalytic activity/Vol] 17 U/L Normal 15-37 [facility] Comment on above: Performed By: #### L 500.4050, L100.0100, L501.2450 #### [facility] [address] [place], [address] Bilirubin [Mass/Vol] 0.50 mg/dL Normal 0.20-1.00 [facility] Comment on above: Result Comment: For patients on eltrombopag therapy, use of Dimension [place] TBIL is not recommended. Performed By: #### L 500.4050, L100.0100, L501.2450 #### [facility] [address] [place], [address] BUN/CRE 11.7 RATIO Normal 10-20 [facility] Comment on above: Performed By: #### L 500.4050, L100.0100, L501.2450 #### [facility] [address] [place], [address] CA,Total 9.3 mg/dL Normal 8.5-10.1 [facility] Comment on above: Performed By: #### L 500.4050, L100.0100, L501.2450 #### [facility] [address] [place], [address] Chloride [Moles/Vol] 105 mmol/L Normal 98-107 [facility] Comment on above: Performed By: #### L 500.4050, L100.0100, L501.2450 #### [facility] [address] [place], [address] CO2 [Moles/Vol] 27.0 mmol/L Normal 21.0-32.0 [facility] Comment on above: Performed By: #### L 500.4050, L100.0100, L501.2450 #### [facility] [address] [place], [address] Creatinine [Mass/Vol] 0.77 mg/dL Normal 0.55-1.02 [facility] Comment on above: Result Comment: The validity of the calculated GFR GFRAA in patients over 70 years has not been determined. Clinical correlation is essential. Performed By: #### L 500.4050, L100.0100, L501.2450 #### [facility] [address] [place], [address] ECRCL 50.26 ml/min Normal [facility] Comment on above: Performed By: #### L 500.4050, L100.0100, L501.2450 #### [facility] [address] [place], [address] EST GFR - AA 94 mL/min Normal >60 [facility] Comment on above: Result Comment: Afri can Omani GFR Calc Performed By: #### L 500.4050, L100.0100, L501.2450 #### [facility] [address] [place], [address] GAP 8 Normal 5-15 [facility] Comment on above: Performed By: #### L 500.4050, L100.0100, L501.2450 #### [facility] [address] [place], [address] GFR/1.73 sq M.predicted among non-blacks MDRD (S/P/Bld) [Vol rate/Area] 78 mL/min/{1.73_m2} Normal >60 [facility] Comment on above: Result Comment: Non- GFR Calc Performed By: #### L 500.4050, L100.0100, L501.2450 #### [facility] [address] [place], [address] Globulin (S) [Mass/Vol] 3.0 g/dL Normal 2.2-4.2 [facility] Comment on above: Performed By: #### L 500.4050, L100.0100, L501.2450 #### [facility] [address] [place], [address] Glucose [Mass/Vol] 115 mg/dL High 74-106 [facility] Comment on above: Result Comment: Fast ing Glucose result from 100 to 125 mg/dL suggests IMPAIRED HOMEOSTASIS per A.D.A. criteria. Performed By: #### L 500.4050, L100.0100, L501.2450 #### [facility] [address] [place], [address] Potassium [Moles/Vol] 3.6 mmol/L Normal 3.5-5.1 [facility] Comment on above: Performed By: #### L 500.4050, L100.0100, L501.2450 #### [facility] [address] [place], [address] Sodium [Moles/Vol] 139 mmol/L Normal 136-145 [facility] Comment on above: Performed By: #### L 500.4050, L100.0100, L501.2450 #### [facility] [address] [place], [address] T PROT 6.6 g/dL Normal 6.4-8.2 [facility] Comment on above: Performed By: #### L 500.4050, L100.0100, L501.2450 #### [facility] [address] [place], [address] Urea nitrogen [Mass/Vol] 9 mg/dL Normal 7-18 [facility] Comment on above: Performed By: #### L 500.4050, L100.0100, L501.2450 #### [facility] [address] [place], [address] Emergency Department Summary on 05-26-2024 Emergency Department Summary [facility] Medical Records Department [address] [place] [address] Emergency Department Summary 05/26/24 MR#: [id number] Acct: [id number] Name: ROMAN KUHN Rep #: [id number] : 1950 73 From: Yas Winchester DO PCP: Dr. Pepe Reyes MD Status:DEP ER Location: ED HPI HPI - GI History of Present Illness Chief Complaint: Abd Pain Informant: patient Narrative Narrative: Patient is a 73-year-old female presenting with diffuse abdominal pain. Patient states that she is on her last day of doxycycline and finished a course of prednisone yesterday. She was on it for sinusitis. Though symptoms have improved however she is been having worsening GI symptoms for the past few days. She notes that she felt nauseous on Monday, 5 days ago and started to have discomfort from her throat down all the way to her rectum. She states her abdomen just feels bloated and her entire GI tract feels hot. She has previously seen GI through [facility] and started taking her colestipol 3 times a day as well as daily MiraLAX and Benefiber. 2 days ago she took Colace because she still felt like nothing was moving in her stomach and then took a Grimes'. She states she usually tries to avoid taking any stimulant laxatives. She notes yesterday evening she started having copious soft serve style bowel movements. She notes it is a little darker than normal but denies any black or blood in her stool. She is been feeling fatigued. She took an Imodium this morning in anticipation of coming to the emergency room. She denies any fevers. Does have a prior history of cholecystectomy and partial hysterectomy. States she is a diagnosis of IBS and GERD and in the 90s did have some rectal bleeding inflammatory condition that she had to take medicine for and use suppositories. She is not sure if she has an actual history of Crohn disease, ulcerative colitis or other inflammatory bowel disorder. No other complaints or concerns reported at this time. [facility] Medical History IBS (irritable bowel syndrome) GERD (gastroesophageal reflux disease) Home Medications ???Medication ???Instructions ???Recorded ???Last Taken ???Type ondansetron 4 mg disintegrating 4 mg PO Q8H PRN PRN Nausea #10 tabs 05/26/24 Unknown Rx tablet Allergy/AdvReac Type Severity Reaction Status Date / Time citalopram (From Celexa) Allergy Unknown PT UNSURE Verified 05/26/24 07:43 OF REACTION clarithromycin (From Biaxin) Allergy Unknown PT UNABLE Verified 05/26/24 07:43 TO RESPOND-NEEDS F/U sulfamethoxazole (From Allergy Unknown PT UNSURE Verified 05/26/24 07:43 Bactrim) OF REACTION trimethoprim (From Bactrim) Allergy Unknown PT UNSURE Verified 05/26/24 07:43 OF REACTION atorvastatin (From Lipitor) Allergy PT UNSURE Verified 05/26/24 07:43 OF REACTION cefixime (From Suprax) Allergy PT UNABLE Verified 05/26/24 07:43 TO RESPOND-NEEDS F/U chlorzoxazone (From Parafon Allergy PT UNSURE Verified 05/26/24 07:43 Forte) OF REACTION ciprofloxacin (From Cipro) Allergy PT UNABLE Verified 05/26/24 07:43 TO RESPOND-NEEDS F/U diclofenac (From Voltaren) Allergy PT UNABLE Verified 05/26/24 07:43 TO RESPOND-NEEDS F/U flavoxate (From Urispas) Allergy PT UNABLE Verified 05/26/24 07:43 TO RESPOND-NEEDS F/U guaifenesin (From Entex LA) Allergy PT UNABLE Verified 05/26/24 07:43 TO RESPOND-NEEDS F/U hyoscyamine (From Levsinex) Allergy PT UNSURE Verified 05/26/24 07:43 OF REACTION moxifloxacin (From Avelox) Allergy PT UNSURE Verified 05/26/24 07:43 OF REACTION paroxetine (From Paxil) Allergy PT UNSURE Verified 05/26/24 07:43 OF REACTION phenylephrine (From Entex LA) Allergy PT UNABLE Verified 05/26/24 07:43 TO RESPOND-NEEDS F/U phenylpropanolamine (From Allergy PT UNABLE Verified 05/26/24 07:43 Entex LA) TO RESPOND-NEEDS F/U Sulfa (Sulfonamide Allergy PT UNABLE Verified 05/26/24 07:43 Antibiotics) TO RESPOND-NEEDS F/U Surgical History History of cholecystectomy History of partial hysterectomy Social History Smoking Status: Current every day smoker tobacco type: cigarettes ROS ROS ED Constitutional Constitutional ED: Denies chills or fever(s) Cardiovascular Cardiovascular: Denies chest pain or palpitations Respiratory/Chest Respiratory/Chest: Denies cough Gastrointestinal Gastrointestinal: Reports abdominal pain, constipation, diarrhea and nausea; Denies melena or vomiting Musculoskeletal Musculoskeletal: Denies arthralgias or myalgias Integumentary Denies rash Neurologic Neurologic: Denies headache(s) or weakness (more content not included)... Normal [facility] Eosinophil percentageOrdered By: Yas Winchester on 05-26-2024 Eosinophils/100 WBC (Bld) 1.5 % 0-5 [facility] Epithelial cells.squamous LM Ql (Urine sed)Ordered By: Yas Winchester on 05-26-2024 Epithelial cells.squamous LM.HPF (Urine sed) [#/Area] 0 /[HPF] 5-10 [facility] Erythrocyte distribution wid th ratioOrdered By: Yas Winchester on 05-26-2024 Erythrocyte distribution width (RBC) [Ratio] 13.5 % 11.6-14.6 [facility] Erythrocyte distribution wid th standard deviationOrdered By: Yas Winchester on 05-26-2024 Erythrocyte distribution width (RBC) [Entitic vol] 48.2 fL High 35.1-43.9 [facility] Estimated glomerular filtrat ion rate (GFR) AmericanOrdered By: Yas Winchester on 05-26-2024 Estimated GFR (MDRD) Amer 94 mL/min >60 [facility] Comment on above: GFR Calc Estimation of creatinine lenka aranceOrdered By: Yas Winchester on 05-26-2024 Estimated Creatinine Clearance Calc 50.26 ml/min [facility] Glomerular filtration rate ( GFR) estimationOrdered By: Yas Winchester on 05-26-2024 Estimated GFR (MDRD) Non-Af Amer 78 mL/min >60 [facility] Comment on above: Non- GFR Calc Glucose Ql (U)Ordered By: Thomas Winchester on 05-26-2024 Urine Glucose (UA) Normal mg/dl Normal [facility] Glucose measurementOrdered B y: Yas Winchester on 05-26-2024 Glucose [Mass/Vol] 115 mg/dL High 74-106 [facility] Comment on above: Fasting Glucose resu lt from 100 to 125 mg/dL suggests IMPAIRED HOMEOSTASIS per A.D.A. criteria. Hematocrit Auto (Bld) [Volum e fraction]Ordered By: Yas Winchester on 05-26-2024 Hematocrit (Bld) [Volume fraction] 42.1 % 37-47 [facility] Hemoglobin measurementOrdere d By: Yas Winchester on 05-26-2024 Hemoglobin (Bld) [Mass/Vol] 14.0 g/dL 12.0-15.0 [facility] Immature granulocytes/100 WB C Auto (Bld)Ordered By: Yas Winchester on 05-26-2024 Immature granulocytes/100 WBC (Bld) 0.500 % 0.0-0.9 [facility] Comment on above: IG% - Immature Granu locytes (promyelocytes, myelocytes and metamyelocytes) > 1% indicates that a LEFT SHIFT is Present. Ketones Test strip Ql (U)Ord ered By: Yas Winchester on 05-26-2024 Ketones Ql (U) Negative Negative [facility] - Chemistry and C hemistry - challengeOrdered By: Yas Winchester on 05-26-2024 AST [Catalytic activity/Vol] 17 U/L 15-37 [facility] Lactoferrin IA Ql (Stl)Order ed By: Yas Winchester on 05-26-2024 Stool Lactoferrin [facility] Lipaseon 05-26-2024 Lipase [Catalytic activity/Vol] 49 U/L Normal 13-75 [facility] Comment on above: Result Comment: Moe haney note: LIPASE revised reference range effective 22. New Lipase methodology. Expected to produce lower values than the previous assay method. NEW Reference Range: 13 - 75 U/L Performed By: #### L 500.4050, L100.0100, L501.2450 ####[facility] [address] [place], [address] Lipase measurementOrdered By : Yas Winchester on 05-26-2024 Lipase [Catalytic activity/Vol] 49 U/L 13-75 [facility] Comment on above: Please note:LIPASE r evised reference range effective 22. New Lipase methodology. Expected to produce lower values than the previous assay method. NEW Reference Range: 13 - 75 U/L Lymphocytes Auto (Unsp spec) [#/Vol]Ordered By: Yas Winchester on 05-26-2024 Lymphocytes (Bld) [#/Vol] 5.61 10*3/uL High 0.83-4.51 [facility] Lymphocytes/100 WBC Auto (Un sp spec)Ordered By: Yas Winchester on 05-26-2024 Lymphocytes/100 WBC (Bld) 43.0 % High 19-41 [facility] MCV (mean corpuscular volume ) determinationOrdered By: Yas Winchester on 05-26-2024 MCV (RBC) [Entitic vol] 96.6 fL 81-99 [facility] Mean corpuscular hemoglobin (MCH) determinationOrdered By: Yas Winchester on 05-26-2024 MCH (RBC) [Entitic mass] 32.1 pg High 27.0-32.0 [facility] Mean corpuscular hemoglobin concentration (MCHC) determinationOrdered By: Yas Winchester on 05-26-2024 MCHC (RBC) [Mass/Vol] 33.3 g/dL 32-36 [facility] Mean platelet volume determi nationOrdered By: Yas Winchester on 05-26-2024 Platelet mean volume (Bld) [Entitic vol] 8.3 fL 6.2-12.0 [facility] Microscopic analysis of urin e for red blood cells (RBC)Ordered By: Yas Winchester on 05-26-2024 Urine RBC 0 SEEN /hpf 0-5 [facility] Monocyte percentageOrdered B y: Yas Winchester on 05-26-2024 Monocytes/100 WBC (Bld) 9.3 % 0-10 [facility] Mucus LM Ql (Urine sed)Order ed By: Yas Winchester on 05-26-2024 Mucus Ql (Urine sed) 0 SEEN /hpf [facility] Neutrophil percentageOrdered By: Yas Winchester on 05-26-2024 Neutrophils/100 WBC (Bld) 45.2 % Low 47-70 [facility] Nitrite Test strip Ql (U)Ord ered By: Yas Winchester on 05-26-2024 Nitrite Ql (U) Negative Negative [facility] Nucleated red blood cell per centageOrdered By: Yas Winchester on 05-26-2024 Nucleated RBC/100 WBC (Bld) [Ratio] 0 % 0-5 [facility] Platelet countOrdered By: Thomas Winchester on 05-26-2024 Platelets (Bld) [#/Vol] 285 10*3/uL 150-450 [facility] Potassium measurementOrdered By: Yas Winchester on 05-26-2024 Potassium [Moles/Vol] 3.6 mmol/L 3.5-5.1 [facility] Protein Test strip Ql (U)Ord ered By: Yas Winchester on 05-26-2024 Protein Ql (U) Negative Negative [facility] RBC Auto (Bld) [#/Vol]Ordere d By: Yas Winchester on 05-26-2024 RBC (Bld) [#/Vol] 4.36 10*6/uL 4.2-5.4 [facility] Serum anion gap measurementO rdered By: Yas Winchester on 05-26-2024 Anion gap [Moles/Vol] 8 mmol/L 5-15 [facility] Serum globulin measurementOr dered By: Yas Winchester on 05-26-2024 Globulin (S) [Mass/Vol] 3.0 g/dL 2.2-4.2 [facility] Serum or plasma alanine marshall otransferase (ALT) measurementOrdered By: Yas Winchester on 05-26-2024 ALT [Catalytic activity/Vol] 27 U/L 13-56 [facility] Serum or plasma albumin olivia urement (mass/volume)Ordered By: Yas Winchester on 05-26-2024 Albumin [Mass/Vol] 3.6 g/dL 3.2-5.0 [facility] Serum or plasma alkaline roxi sphatase measurementOrdered By: Yas Winchester on 05-26-2024 ALP [Catalytic activity/Vol] 67 U/L 45-117 [facility] Serum or plasma calcium olivia urement (mass/volume)Ordered By: Yas Winchester on 05-26-2024 Calcium [Mass/Vol] 9.3 mg/dL 8.5-10.1 [facility] Serum or plasma creatinine m easurement (mass/volume)Ordered By: Yas Winchester on 05-26-2024 Creatinine [Mass/Vol] 0.77 mg/dL 0.55-1.02 [facility] Comment on above: The validity of the calculated GFR & GFRAA in patients over 70 years has not been determined. Clinical correlation is essential. Serum or plasma urea nitroge n measurement (mass/volume)Ordered By: Yas Winchester on 05-26-2024 Urea nitrogen [Mass/Vol] 9 mg/dL 7-18 [facility] Sodium levelOrdered By: Nuria Winchester on 05-26-2024 Sodium [Moles/Vol] 139 mmol/L 136-145 [facility] Stool Lactoferrin/WBCon 05-04 WBCST Is the patient recei ving laxatives? N New/unexplained onset of 3 or more stools in past 24 hrs? N Normal Reference Range = Negative Fecal WBC Lactoferrin A Positive: Fecal WBC Lactoferrin present A Normal [facility] Comment on above: Performed By: #### L 400.0001 #### [facility] [place], [address] Total proteinOrdered By: Madyson Winchester on 05-26-2024 Protein [Mass/Vol] 6.6 g/dL 6.4-8.2 [facility] Urinalysis, Completeon 05-26 WBC 0-5 SEEN Normal 0-5 [facility] Comment on above: Order Comment: CLEAN CATCH Performed By: #### L 400.0001 #### [facility] [address] [place], [address] BACTERIA 0 SEEN Normal None Seen [facility] Comment on above: Order Comment: CLEAN CATCH Performed By: #### L 400.0001 #### [facility] [address] [place], [address] EPI,SQUAMOUS 0 SEEN Normal 5-10 [facility] Comment on above: Order Comment: CLEAN CATCH Performed By: #### L 400.0001 #### [facility] [address] [place], [address] Mucus Ql (Urine sed) 0 SEEN Normal [facility] Comment on above: Order Comment: CLEAN CATCH Performed By: #### L 400.0001 #### [facility] [address] [place], [address] RBC 0 SEEN Normal 0-5 [facility] Comment on above: Order Comment: CLEAN CATCH Performed By: #### L 400.0001 #### [facility] [address] [place], [address] Urine blood detectionOrdered By: Yas Winchester on 05-26-2024 Urine Occult Blood Negative Negative [facility] Urine clarityOrdered By: Madyson Winchester on 05-26-2024 Clarity (U) Clear Clear [facility] Urine color determinationOrd ered By: Yas Winchester on 05-26-2024 Color (U) Straw Yellow [facility] Urine leukocyte esterase det ection by dipstickOrdered By: Yas Winchester on 05-26-2024 Leukocyte esterase Test strip Ql (U) 25 /ul High Negative [facility] Urine pHOrdered By: Yas campos on 05-26-2024 pH (U) 7.0 [pH] 5.0 - 8.0 [facility] Urine sediment bacteria coun t by microscopy (number/high power field)Ordered By: Yas Winchester on 05-26-2024 Bacteria LM.HPF (Urine sed) [#/Area] 0 /[HPF] None Seen [facility] Urine specific gravity measu rementOrdered By: Yas Ranulfo on 05-26-2024 Specific gravity (U) [Rel density] 1.010 1.002-1.03 0 [facility] Urobilinogen Ql (U)Ordered B y: Yas Ranulfo on 05-26-2024 Urine Urobilinogen Normal mg/dl Normal [facility] White blood cell (WBC) count Ordered By: Yas Winchester on 05-26-2024 WBC (Bld) [#/Vol] 13.1 10*3/uL High 4.4-11.0 [facility] White blood cell countOrdere d By: Yas Winchester on 05-26-2024 Urine WBC 0-5 SEEN /hpf 0-5 [facility] CNOVon 05-17-2024 CNOV Office Visit (FAMPWS ) ROMAN KUHN ([id number]) 1950 F Date Time Provider Department 05/17/24 2:00 PM ELISE CROCKER During your visit today, we recorded the following information about you: Temperature Pulse Respiration Blood pressure 99.4 degrees 120/minute 16/minute 120/88 Weight 57.5 kg Elise Crocker APRN.CNP 05/17/2024 2:25 PM Signed This is a 73 year old female who presents today with: Patient presents with: Acute Visit: right ear pain HISTORY OF PRESENT ILLNESS: Roman Kuhn is a 73 year old female. Patient presents with: Acute Visit: right ear pain Here in the office for right ear pain. Started about 1 month ago. Was seen by ENT had cerumen removed. Had covid at the end of April. Using albuterol inhalers, claritin D, mucinex, nasacort, and netipot. Medication is helpful. No fever or chills. PAST MEDICAL HISTORY: PAST MEDICAL HISTORY Diagnosis Date Abdominal pain, epigastric Allergic rhinitis, cause unspecified Allergic rhinitis Esophageal reflux IBS (irritable bowel syndrome) constipation primarily Other and unspecified hyperlipidemia Unspecified hypothyroidism PAST SURGICAL HISTORY Procedure Laterality Date ABDOMINAL SURGERY HX BIOPSY BREAST OPEN INCISIONAL 08/14/2017 left stereotactic breast biopsy w/clip placement [facility] COLONOSCOPY FLX DX W/COLLJ SPEC WHEN PFRMD 12/18/2003 Colonoscopy COLONOSCOPY FLX DX W/COLLJ SPEC WHEN PFRMD 03/11/2008 Colonoscopy COLONOSCOPY FLX DX W/COLLJ SPEC WHEN PFRMD 07/19/2012 Colonoscopy COLONOSCOPY FLX DX W/COLLJ SPEC WHEN PFRMD 11/13/2018 Colonoscopy COSMETIC ASSESSMENT EGD 09/01/2020 ESOPHAGOGASTRODUODENOSCOPY TRANSORAL DIAGNOSTIC 03/12/2012 EGD ESOPHAGOGASTRODUODENOSCOPY TRANSORAL DIAGNOSTIC 11/13/2018 EGD EYE SURGERY HX LAPS SURG CHOLECYSTECTOMY W/CHOLANGIOGRAPHY 04/17/2012 Normal IOC PAST SURGICAL HISTORY OF hemmorhoidectomy PAST SURGICAL HISTORY OF 1969 ventral hernia repair - [place] - unknown for mesh PAST SURGICAL HISTORY OF age 27 partial hysterectomy PAST SURGICAL HISTORY OF 1998 benign breast bx PAST SURGICAL HISTORY OF 07/2002 lasik eye surgery PAST SURGICAL HISTORY OF 07/2006 recheck and enhancement on eye surgery PAST SURGICAL HISTORY OF Bilateral 2019 OD - 08/21, OS - 09/[address] Stock. Cataract implants RHINP PRIM LATANDALAR CRTLGSAND/ELVTN NASAL TI Rhinoplasty x 2 VAGINAL HYSTERECTOMY ALLERGIES Ceclor [Cefaclor], Avelox [Moxifloxacin Hcl], Bactrim [Sulfamethoxazole], Biaxin [Clarithromycin], Celexa [Citalopram Hydrobromide], Cipro [Ciprofloxacin], Entex [Phenylephrine-Guaifenesin], Erythromycin, Levsinex [Hyoscyamine Sulfate], Lipitor [Atorvastatin Calcium], N[place] Senior Dx [Dextromethorphan-Guaifenesi n], Parafon Forte Dsc [Chlorzoxazone], Paxil [Paroxetine Hcl], Sulfa (Sulfonamide Antibiotics), Suprax [Cefixime], Urispas [Flavoxate Hcl], and Voltaren [Diclofenac Sodium] MEDICATIONS Current Outpatient Medications Medication Sig levothyroxine (SYNTHROID) 112 mcg tablet Take 1 tablet by mouth once daily. Take on empty stomach. For thyroid pantoprazole DR (PROTONIX) 40 mg tablet Take 1 tablet by mouth daily before breakfast. Take on empty stomach, 1/2 hr before meal. albuterol HFA (VENTOLIN HFA) 90 mcg/actuation inhaler Inhale 2 Puffs as instructed every 6 hours as needed for wheezing/shortness of breath. tretinoin (RETIN-A) 0.025 % topical cream Apply 1 application to affected area daily at bedtime. pravastatin (PRAVACHOL) 40 mg tablet Take 1 tablet by mouth once daily. famotidine (PEPCID) 20 mg tablet Take 1 tablet by mouth once daily. BENEFIBER, WHEAT DEXTRIN, ORAL Take 2 teaspoonsful by mouth three times a day. colestipol (COLESTID) 1 gram tablet take 1 tablet every day polyethylene glycol 3350 (MIRALAX, GLYCOLAX) 17 gram/dose powder Take 17 g by mouth twice daily. triamcinolone acetonide (NASACORT) 55 mcg nasal inhaler Use 2 Sprays in the nose once daily. aspirin(ECOTRIN LOW STRENGTH 81 MG TAB) Take one(1) tablet daily. ONE DAILY MULTI-VITAMIN TAB Take one(1) tablet daily. No current facility-administered medications for this visit. FAMILY HISTORY Problem Relation Age of Onset Prostate Cancer Father Coronary Artery Disease Father late in life; enlarged heart; smoked Heart Mother valve, age 81 Colon Cancer Other none Diabetes Other none Social History Tobacco Use Smoking status: Every Day Current packs/day: 0.75 Average packs/day: 0.8 packs/day for 56.0 years (42.0 ttl pk-yrs) Types: Cigarettes Smokeless tobacco: Never Vaping Use Vaping status: Never Used Substance Use Topics Alcohol use: Yes Comment: occasionally Drug use: No REVIEW OF SYSTEMS GENERAL: No weight loss, malaise or fevers/chills HEENT: + Right Ear Pain NECK: Negative for lumps, goiter, pain and significant neck swelling RESPIRATORY: (more content not included)... Normal [facility] Large Joint Arthro/Inj: bila teral knee jointson 05-13-2024 Belinda Jason PA -C 05/13/2024 4:06 PM Large Joint Arthro/Inj: bilateral knee joints Informed Consent Consent Obtained: Verbal [place] Protocol A moment to CARE was completed. SIGN IN Sign in communication not applicable due to emergent procedure. Personnel directly involved with the procedure wore the appropriate PPE. Special Equipment: N/A Patient/Surrogate Stated/Verified: Patient name, Date of , Relevant allergies and Intended procedure TIME OUT Intended patient and procedure match the source document(s). Consent documented and matches the intended procedure. Relevant labs, photos, and/or imaging studies have been reviewed. Correct side/site marked and visible. Medications required for procedure verified. No fire risk assessment and interventions applicable. No implant(s) inserted. 05/13/2024 4:05 PM The procedure site was prepped in the usual sterile fashion. Site: bilateral knee joints Medications (Right): 6 mg betamethasone acetate-betamethasone sodium phosphate 6 mg/mL Medications (Left): 6 mg betamethasone acetate-betamethasone sodium phosphate 6 mg/mL Anesthetics (Right): 5 mL lidocaine (PF) 10 mg/mL (1 %) Anesthetics (Left): 5 mL lidocaine (PF) 10 mg/mL (1 %) Outcome: Tolerated well, no immediate complications Post-injection instructions were reviewed with the patient and the patient voiced understanding of these instructions. SIGN OUT No specimen collected. No instruments, equipment or retained foreign bodies applicable. Post-procedure follow-up management communicated and Plan of Care Visit completed when applicable [facility] CT Chest for screening WO co ntraston 11-20-2023 IMPRESSION: LungRADS category: 2 LungRADS modifier: None LungRADS 0 reason: n/a Recommendations: Continue annual screening with LDCT in 12 months. Reference: [employer]. Lung CT Screening Reporting and Data System (Lung-RADS). Available at: http://www.acr.org/Quality-S afety/Resources/LungRADS Certified Medical Dosimetrist: AMADO Transcribe Date/Time: Nov 20 2023 12:10P Dictated by : KATHRYN FALCON MD This examination was interpreted and the report reviewed and electronically signed by: KATHRYN FALCON MD on Nov 20 2023 12:38PM [facility] DIVISION OF RADIOLOGY * * *Final Report* * * DATE OF EXAM: Nov 20 2023 10:27AM [facility] 0562 - CT LUNG SCREEN WO [place] / PROCEDURE REASON: multiple diagnoses * * * * Physician Interpretation * * * * EXAMINATION: CHEST CT WITHOUT CONTRAST (LOW-DOSE CT LUNG CANCER SCREENING PROTOCOL) CLINICAL HISTORY: Lung cancer LDCT screening ? absence of signs or symptoms of lung cancer. Nicotine dependence (cigarettes). Subsequent (annual) Technique: Spiral CT acquisition of the chest from the thoracic inlet to the upper abdomen without contrast. MQ: CTLCS_6 Patient characteristics: * Sscq-uo-Blrop: 1950; Age at exam: 72 years * Gender: Female * Lung Disease: Asymptomatic (no signs or symptoms of lung disease) * Number of Pack Years: 42 * Current smoker (=0) or Number of Years since Quit: 0 * Ordering provider and NPI: PETERSON NORTON [id number] * Interpreting radiologist and NPI: Dany [id number] Exam acquisition parameters: * Exam Date: 11/20/2023 10:27 AM * Site: [facility] * * CT System Book Editor: Siemens * CT System Model: Sensation * Tube Current-Time (mA-sec): 18 * Peak Voltage (kV): 120V * Scan Time (sec): 11.3 * Scan Volume (z-length, cm): -30.15 * Pitch: 0.75 * Slice Thickness (mm): 1.5 * CT Dose-Length Product: 68 mGy*cm * CT Dose Index: 1.43mGy * CT Dose Reduction Method: Automated exposure control(AEC) and iterative recon COMPARISON: 11/14/22 RESULT: Are nodules present? Yes, 1-5 nodules If No, go to IMPRESSION. If yes, proceed with characterization of the FIVE largest nodules. Nodule 1: This 4 mm nodule is located in the RUL on slice number 63 unchanged. Other findings: 2 cm right adrenal adenoma unchanged. Mild coronary calcifications.Mild DJD of thoracic spine. Mild upper lobe emphysema and bronchial thickening and biapical subpleural scarring. Minimal scattered atelectasis or scarring. Surgical clip in left breast. DIVISION OF RADIOLOGY Provider, Madina Rayna [facility] - 11/20/2023 * * *Final Report* * * DATE OF EXAM: Nov 20 2023 10:27AM [facility] 0562 - CT LUNG SCREEN WO [facility] / PROCEDURE REASON: multiple diagnoses * * * * Physician Interpretation * * * * EXAMINATION: CHEST CT WITHOUT CONTRAST (LOW-DOSE CT LUNG CANCER SCREENING PROTOCOL) CLINICAL HISTORY: Lung cancer LDCT screening ? absence of signs or symptoms of lung cancer. Nicotine dependence (cigarettes). Subsequent (annual) Technique: Spiral CT acquisition of the chest from the thoracic inlet to the upper abdomen without contrast. MQ: CTLCS_6 Patient characteristics: * Fffq-un-Metfe: 1950; Age at exam: 72 years * Gender: Female * Lung Disease: Asymptomatic (no signs or symptoms of lung disease) * Number of Pack Years: 42 * Current smoker (=0) or Number of Years since Quit: 0 * Ordering provider and NPI: PETERSON ONRTON [id number] * Interpreting radiologist and NPI: Dany [id number] Exam acquisition parameters: * Exam Date: 11/20/2023 10:27 AM * Site: [facility] * * CT System Book Editor: Siemens * CT System Model: Sensation * Tube Current-Time (mA-sec): 18 * Peak Voltage (kV): 120V * Scan Time (sec): 11.3 * Scan Volume (z-length, cm): -30.15 * Pitch: 0.75 * Slice Thickness (mm): 1.5 * CT Dose-Length Product: 68 mGy*cm * CT Dose Index: 1.43mGy * CT Dose Reduction Method: Automated exposure control(AEC) and iterative recon COMPARISON: 11/14/22 RESULT: Are nodules present? Yes, 1-5 nodules If No, go to IMPRESSION. If yes, proceed with characterization of the FIVE largest nodules. Nodule 1: This 4 mm nodule is located in the RUL on slice number 63 unchanged. Other findings: 2 cm right adrenal adenoma unchanged. Mild coronary calcifications.Mild DJD of thoracic spine. Mild upper lobe emphysema and bronchial thickening and biapical subpleural scarring. Minimal scattered atelectasis or scarring. Surgical clip in left breast. IMPRESSION IMPRESSION: LungRADS category: 2 LungRADS modifier: None LungRADS 0 reason: n/a Recommendations: Continue annual screening with LDCT in 12 months. Reference: [employer]. Lung CT Screening Reporting and Data System (Lung-RADS). Available at: http://www.acr.org/Quality-S afety/Resources/LungRADS Certified Medical Dosimetrist: AMADO Transcribe Date/Time: Nov 20 2023 12:10P Dictated by : KATHRYN FALCON MD This examination was interpreted and the report reviewed and electronically signed by: KATHRYN FALCON MD on Nov 20 2023 12:38PM [facility] Radiology Study observation (narrative) [facility] CT Chest for screening WO co ntrastOrdered By: Ccf Provider on 11-20-2023 [facility] MOISE SCREENING W TOMOon 03-16 [facility] XR CHEST 2V FRONTAL/LATon [facility] XR Chest PA and Lateralon IMPRESSION: No acute radiographic abnormality. Certified Medical Dosimetrist: AMADO Transcribe Date/Time: Dec 02 2022 4:46P Dictated by : WAYNE PARDO MD This examination was interpreted and the report reviewed and electronically signed by: WAYNE PARDO MD on Dec 02 2022 4:47PM [facility] DIVISION OF RADIOLOGY * * *Final Report* * * DATE OF EXAM: Dec 02 2022 4:43PM [facility] [id number] - XR CHEST 2V FRONTAL/LAT / PROCEDURE REASON: Acute cough * * * * Physician Interpretation * * * * EXAMINATION: CHEST RADIOGRAPH (2 VIEW FRONTAL & LATERAL) CLINICAL HISTORY: Acute cough MQ: XC2_6 EXAM DATE/TIME: 12/02/2022 4:43 PM COMPARISON: Chest x-ray on 01/31/2023 RESULT: Lines, tubes, and devices: None. Lungs and pleura: No consolidation. No lung mass. No pleural effusion. No pneumothorax. Cardiomediastinal silhouette: Stable cardiomediastinal silhouette. Bones and soft tissues: There are degenerative changes in the spine. DIVISION OF RADIOLOGY Provider, Brian moise Inman - 12/02/2022 * * *Final Report* * * DATE OF EXAM: Dec 02 2022 4:43PM [facility]291 - XR CHEST 2V FRONTAL/LAT / PROCEDURE REASON: Acute cough * * * * Physician Interpretation * * * * EXAMINATION: CHEST RADIOGRAPH (2 VIEW FRONTAL & LATERAL) CLINICAL HISTORY: Acute cough MQ: XC2_6 EXAM DATE/TIME: 12/02/2022 4:43 PM COMPARISON: Chest x-ray on 01/31/2023 RESULT: Lines, tubes, and devices: None. Lungs and pleura: No consolidation. No lung mass. No pleural effusion. No pneumothorax. Cardiomediastinal silhouette: Stable cardiomediastinal silhouette. Bones and soft tissues: There are degenerative changes in the spine. IMPRESSION IMPRESSION: No acute radiographic abnormality. Certified Medical Dosimetrist: AMADO Transcribe Date/Time: Dec 02 2022 4:46P Dictated by : WAYNE PARDO MD This examination was interpreted and the report reviewed and electronically signed by: WAYNE PARDO MD on Dec 02 2022 4:47PM EST [facility] Radiology Study observation (narrative) [facility] XR Chest PA and LateralOrder ed By: Ccf Provider on 12-02-[address] [facility] [address] LUNG SCREEN [facility] XR CHEST 2V FRONTAL/LATon [facility] XR Chest PA and Lateralon IMPRESSION: No acute radiographic abnormality. Certified Medical Dosimetrist: PSCB Transcribe Date/Time: Oct 31 2022 9:31A Dictated by : ARTURO VIDAL MD This examination was interpreted and the report reviewed and electronically signed by: ARTURO VIDAL MD on Oct 31 2022 9:37AM [facility] DIVISION OF RADIOLOGY * * *Final Report* * * DATE OF EXAM: Oct 31 2022 9:26AM [facility] 5291 - XR CHEST 2V FRONTAL/LAT / PROCEDURE REASON: multiple diagnoses * * * * Physician Interpretation * * * * EXAMINATION: CHEST RADIOGRAPH (2 VIEW FRONTAL & LATERAL) CLINICAL HISTORY: Cough present for greater than 3 weeks Acute bronchitis, unspecified organism MQ: XC2_6 EXAM DATE/TIME: 10/31/2022 9:26 AM COMPARISON: Chest x-ray dated October 11, 2021 RESULT: Lines, tubes, and devices: None. Lungs and pleura: No consolidation. No lung mass. No pleural effusion. No pneumothorax. Cardiomediastinal silhouette: Normal cardiomediastinal silhouette. Bones and soft tissues: Degenerative changes. Small surgical clip projects over the left hemithorax. DIVISION OF RADIOLOGY Provider, [facility] - 10/31/2022 * * *Final Report* * * DATE OF EXAM: Oct 31 2022 9:26AM [facility] 5291 - XR CHEST 2V FRONTAL/LAT / PROCEDURE REASON: multiple diagnoses * * * * Physician Interpretation * * * * EXAMINATION: CHEST RADIOGRAPH (2 VIEW FRONTAL & LATERAL) CLINICAL HISTORY: Cough present for greater than 3 weeks Acute bronchitis, unspecified organism MQ: XC2_6 EXAM DATE/TIME: 10/31/2022 9:26 AM COMPARISON: Chest x-ray dated October 11, 2021 RESULT: Lines, tubes, and devices: None. Lungs and pleura: No consolidation. No lung mass. No pleural effusion. No pneumothorax. Cardiomediastinal silhouette: Normal cardiomediastinal silhouette. Bones and soft tissues: Degenerative changes. Small surgical clip projects over the left hemithorax. IMPRESSION IMPRESSION: No acute radiographic abnormality. Certified Medical Dosimetrist: AMADO Transcribe Date/Time: Oct 31 2022 9:31A Dictated by : ARTURO VIDAL MD This examination was interpreted and the report reviewed and electronically signed by: ARTURO VIDAL MD on Oct 31 2022 9:37AM EST [facility] Radiology Study observation (narrative) [facility] XR Chest PA and LateralOrder ed By: Ccf Provider on 10-31-2022 [facility] No Panel Informationon 07-19 IMPRESSION: 1. Bilateral knee chondrocalcinosis suggesting CPPD. No significant change 2. 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 degenerative disc disease at L5-S1 Certified Medical Dosimetrist: PSCB Transcribe Date/Time: Jul 19 2022 8:50A Dictated by : ALEKSEY WOOTEN MD This examination was interpreted and the report reviewed and electronically signed by: ALEKSEY WOOTEN MD on Jul 19 2022 8:54AM [facility] DIVISION OF RADIOLOGY No Panel InformationOrdered By: Ccf Provider on 07-19-2022 [facility] XR Knee - bilateral 4 Viewso n 07-19-2022 * * *Final Report* * * DATE OF EXAM: Jul 18 2022 11:51AM [facility] [id number] - XR KNEE 4V AP/PA/LAT/MERCH SHANDRA / PROCEDURE REASON: Primary osteoarthritis of both knees * * * * Physician Interpretation * * * * PROCEDURE: Bilateral knees and lumbar spine. INDICATION: Primary osteoarthritis of both knees. Chronic bilateral low back pain with bilateral sciatica .pain off and on for years, hx of injections and left knee started up again about a week ago with pain anterior right is same but not as bad no inj pain off and on for years and then worse a week ago with pain all across si joint area with stiffness no inj TECHNIQUE: XR KNEE 4V AP/PA/LAT/MERCH SHANDRA, XR LUMBAR 3V AP/LAT/L5-S1 COMPARISON: Bilateral knees 06/07/2019, CT abdomen/pelvis 01/23/2013 FINDINGS: Bilateral knees: Significant chondrocalcinosis bilaterally as seen previously. No significant joint space narrowing. Minimal marginal spur formation. No fracture or joint effusion. Lumbar spine: Bilateral L5 pars defects with grade 2 spondylolisthesis of L5 on S1. This finding was seen on the prior CT. There is moderate degenerative disc disease at L5-S1. Remaining disc spaces are maintained. No fracture. Sacroiliac joints are unremarkable. DIVISION OF RADIOLOGY Provider, [facility] - 07/19/2022 * * *Final Report* * * DATE OF EXAM: Jul 18 2022 11:51AM [facility] [id number] - XR KNEE 4V AP/PA/LAT/MERCH SHANDRA / PROCEDURE REASON: Primary osteoarthritis of both knees * * * * Physician Interpretation * * * * PROCEDURE: Bilateral knees and lumbar spine. INDICATION: Primary osteoarthritis of both knees. Chronic bilateral low back pain with bilateral sciatica .pain off and on for years, hx of injections and left knee started up again about a week ago with pain anterior right is same but not as bad no inj pain off and on for years and then worse a week ago with pain all across si joint area with stiffness no inj TECHNIQUE: XR KNEE 4V AP/PA/LAT/MERCH SHANDRA, XR LUMBAR 3V AP/LAT/L5-S1 COMPARISON: Bilateral knees 06/07/2019, CT abdomen/pelvis 01/23/2013 FINDINGS: Bilateral knees: Significant chondrocalcinosis bilaterally as seen previously. No significant joint space narrowing. Minimal marginal spur formation. No fracture or joint effusion. Lumbar spine: Bilateral L5 pars defects with grade 2 spondylolisthesis of L5 on S1. This finding was seen on the prior CT. There is moderate degenerative disc disease at L5-S1. Remaining disc spaces are maintained. No fracture. Sacroiliac joints are unremarkable. IMPRESSION IMPRESSION: 1. Bilateral knee chondrocalcinosis suggesting CPPD. No significant change 2. 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 INDICATION: Primary osteoarthritis of both knees. Chronic bilateral low back pain with bilateral sciatica .pain off and on for years, hx of injections and left knee started up again about a week ago with pain anterior right is same but not as bad no inj pain off and on for years and then worse a week ago with pain all across si joint area with stiffness no inj TECHNIQUE: XR KNEE 4V AP/PA/LAT/MERCH SHANDRA, XR LUMBAR 3V AP/LAT/L5-S1 COMPARISON: Bilateral knees 06/07/2019, CT abdomen/pelvis 01/23/2013 FINDINGS: Bilateral knees: Significant chondrocalcinosis bilaterally as seen previously. No significant joint space narrowing. Minimal marginal spur formation. No fracture or joint effusion. Lumbar spine: Bilateral L5 pars defects with grade 2 spondylolisthesis of L5 on S1. This finding was seen on the prior CT. There is moderate degenerative disc disease at L5-S1. Remaining disc spaces are maintained. No fracture. Sacroiliac joints are unremarkable. DIVISION OF RADIOLOGY Provider, Brian Tovar - 07/19/2022 * * *Final Report* * * DATE OF EXAM: Jul 18 2022 11:51AM [facility] [id number] - XR LUMBAR 3V AP/LAT/L5-S1 / PROCEDURE REASON: multiple diagnoses * * * * Physician Interpretation * * * * PROCEDURE: Bilateral knees and lumbar spine. INDICATION: Primary osteoarthritis of both knees. Chronic bilateral low back pain with bilateral sciatica .pain off and on for years, hx of injections and left knee started up again about a week ago with pain anterior right is same but not as bad no inj pain off and on for years and then worse a week ago with pain all across si joint area with stiffness no inj TECHNIQUE: XR KNEE 4V AP/PA/LAT/MERCH SHANDRA, XR LUMBAR 3V AP/LAT/L5-S1 COMPARISON: Bilateral knees 06/07/2019, CT abdomen/pelvis 01/23/2013 FINDINGS: Bilateral knees: Significant chondrocalcinosis bilaterally as seen previously. No significant joint space narrowing. Minimal marginal spur formation. No fracture or joint effusion. Lumbar spine: Bilateral L5 pars defects with grade 2 spondylolisthesis of L5 on S1. This finding was seen on the prior CT. There is moderate degenerative disc disease at L5-S1. Remaining disc spaces are maintained. No fracture. Sacroiliac joints are unremarkable. IMPRESSION IMPRESSION: 1. Bilateral knee chondrocalcinosis suggesting CPPD. No significant change 2. 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 Certified Medical Dosimetrist: AMADO Transcribe Date/Time: Oct 11 2021 9:42A Dictated by : PASCUAL GIBBONS MD This examination was interpreted and the report reviewed and electronically signed by: PASCUAL GIBBONS MD on Oct 11 2021 9:43AM [facility] DIVISION OF RADIOLOGY * * *Final Report* * * DATE OF EXAM: Oct 11 2021 9:12AM [facility] [id number] - XR CHEST 2V FRONTAL/LAT / PROCEDURE REASON: multiple diagnoses * * * * Physician Interpretation * * * * EXAMINATION: CHEST RADIOGRAPH (2 VIEW FRONTAL & LATERAL) CLINICAL HISTORY: Sinobronchitis MQ: XC2_6 EXAM DATE/TIME: 10/11/2021 9:12 AM COMPARISON: 08/22/2020 RESULT: Lines, tubes, and devices: None. Lungs and pleura: No consolidation. No lung mass. No pleural effusion. No pneumothorax. Cardiomediastinal silhouette: Normal cardiomediastinal silhouette. Bones and soft tissues: Unremarkable. Degenerative changes throughout the spine DIVISION OF RADIOLOGY Provider, Brian Tovar - 10/11/2021 * * *Final Report* * * DATE OF EXAM: Oct 11 2021 9:12AM [facility] 5291 - XR CHEST 2V FRONTAL/LAT / PROCEDURE REASON: multiple diagnoses * * * * Physician Interpretation * * * * EXAMINATION: CHEST RADIOGRAPH (2 VIEW FRONTAL & LATERAL) CLINICAL HISTORY: Sinobronchitis MQ: XC2_6 EXAM DATE/TIME: 10/11/2021 9:12 AM COMPARISON: 08/22/2020 RESULT: Lines, tubes, and devices: None. Lungs and pleura: No consolidation. No lung mass. No pleural effusion. No pneumothorax. Cardiomediastinal silhouette: Normal cardiomediastinal silhouette. Bones and soft tissues: Unremarkable. Degenerative changes throughout the spine IMPRESSION IMPRESSION: No acute radiographic abnormality. Certified Medical Dosimetrist: AMADO Transcribe Date/Time: Oct 11 2021 9:42A Dictated by : PASCUAL GIBBONS MD This examination was interpreted and the report reviewed and electronically signed by: PASCUAL GIBBONS MD on Oct 11 2021 9:43AM EST [facility] Radiology Study observation (narrative) [facility] XR Chest PA and LateralOrder ed By: Ccf Provider on 10-11-2021 [facility] XR Chest PA and Lateralon IMPRESSION: No acute radiographic abnormality. Certified Medical Dosimetrist: AMADO Transcribe Date/Time: Aug 22 2020 12:51P Dictated by : HERMAN GARDNER MD This examination was interpreted and the report reviewed and electronically signed by: HERMAN GARDNER MD on Aug 22 2020 12:52PM EST DIVISION OF RADIOLOGY * * *Final Report* * * DATE OF EXAM: Aug 22 2020 12:19PM [facility] 5291 - XR CHEST 2V FRONTAL/LAT / PROCEDURE REASON: multiple diagnoses * * * * Physician Interpretation * * * * EXAMINATION: CHEST RADIOGRAPH (2 VIEW FRONTAL & LATERAL) CLINICAL HISTORY: Cough Wheeze MQ: XC2_6 EXAM DATE/TIME: 08/22/2020 12:19 PM COMPARISON: No relevant prior studies available. RESULT: Lines, tubes, and devices: None. Lungs and pleura: No consolidation. No lung mass. No pleural effusion. No pneumothorax. Cardiomediastinal silhouette: Normal cardiomediastinal silhouette. Bones and soft tissues: Unremarkable. DIVISION OF RADIOLOGY Provider, [facility] - 08/22/2020 * * *Final Report* * * DATE OF EXAM: Aug 22 2020 12:19PM [facility] 5291 - XR CHEST 2V FRONTAL/LAT / PROCEDURE REASON: multiple diagnoses * * * * Physician Interpretation * * * * EXAMINATION: CHEST RADIOGRAPH (2 VIEW FRONTAL & LATERAL) CLINICAL HISTORY: Cough Wheeze MQ: XC2_6 EXAM DATE/TIME: 08/22/2020 12:19 PM COMPARISON: No relevant prior studies available. RESULT: Lines, tubes, and devices: None. Lungs and pleura: No consolidation. No lung mass. No pleural effusion. No pneumothorax. Cardiomediastinal silhouette: Normal cardiomediastinal silhouette. Bones and soft tissues: Unremarkable. IMPRESSION IMPRESSION: No acute radiographic abnormality. Certified Medical Dosimetrist: [employer] Transcribe Date/Time: Aug 22 2020 12:51P Dictated by : HERMAN GARDNER MD This examination was interpreted and the report reviewed and electronically signed by: HERMAN GARDNER MD on Aug 22 2020 12:52PM EST [facility] Radiology Study observation (narrative) [facility] XR Chest PA and LateralOrder ed By: C[facility] Provider on 08-22-2020 [facility] Vital Signs Date Time Vital Sign Value Performing Clinician Facility 03-18-2025 14:42-0400 Body mass index (BMI) [Ratio] 22.66 kg/m2 Pepe Reyes MD Work Phone: [facility] 03-18-2025 14:42-0400 Body weight 56.2 kg Pepe Reyes MD Work Phone: [facility] 03-18-2025 14:42-0400 Diastolic blood pressure 70 mm[Hg] Pepe Reyes MD Work Phone: [facility] 03-18-2025 14:42-0400 Heart rate 88 /min Pepe Reyes MD Work Phone: [facility] 03-18-2025 14:42-0400 Respiratory rate 16 /min Pepe Reyes MD Work Phone: [facility] 03-18-2025 14:42-0400 Systolic blood pressure 124 mm[Hg] Pepe Reyes MD Work Phone: [facility] 02-15-2025 08:50-0400 Body mass index (BMI) [Ratio] 22.18 kg/m2 Rochelle Brice MD Work Phone: [facility] 02-15-2025 08:50-0400 Body temperature 98.29 [degF] Rochelle Brice MD Work Phone: [facility] 02-15-2025 08:50-0400 Body weight 55 kg Rochelle Brice MD Work Phone: [facility] 02-15-2025 08:50-0400 Diastolic blood pressure 83 mm[Hg] Rochelle Brice MD Work Phone: [facility] 02-15-2025 08:50-0400 Heart rate 96 /min Rochelle Brice MD Work Phone: [facility] 02-15-2025 08:50-0400 Respiratory rate 18 /min Rochelle Brice MD Work Phone: [facility] 02-15-2025 08:50-0400 SaO2% (BldA) [Mass fraction] 97 % Rochelle Brice MD Work [facility] [facility]25 08:50-0400 Systolic blood pressure 136 mm[Hg] Rochelle Brice MD Work Phone: [facility] 12-23-2024 10:00-0400 Body mass index (BMI) [Ratio] 22.18 kg/m2 Tangela Hinojosa CARDIOPULMONARY SPECIALIST.CANCER REGISTRAR Work Phone: [facility] 12-23-2024 10:00-0400 Body weight 55 kg Tangela Hinojosa CARDIOPULMONARY SPECIALIST.CANCER REGISTRAR Work Phone: [facility] 12-23-2024 10:00-0400 Diastolic blood pressure 74 mm[Hg] Tangela Hinojosa CARDIOPULMONARY SPECIALIST.CANCER REGISTRAR Work Phone: [facility] 12-23-2024 10:00-0400 Heart rate 116 /min Tangela Hinojosa APRN.CANCER REGISTRAR Work Phone: [facility] 12-23-2024 10:00-0400 Systolic blood pressure 123 mm[Hg] Tangela Hinojosa APRN.CANCER REGISTRAR Work Phone: [facility] 11-15-2024 16:06-0400 Body mass index (BMI) [Ratio] 22.5 kg/m2 Pepe Reyes MD Work Phone: [facility] 11-15-2024 16:06-0400 Body weight 55.8 kg Pepe Reyes MD Work Phone: [facility] 11-15-2024 16:06-0400 Diastolic blood pressure 72 mm[Hg] Pepe Reyes MD Work Phone: [facility] 11-15-2024 16:06-0400 Heart rate 92 /min Pepe Reyes MD Work Phone: [facility] 11-15-2024 16:06-0400 Respiratory rate 16 /min Pepe Reyes MD Work Phone: [facility] 11-15-2024 16:06-0400 Systolic blood pressure 120 mm[Hg] Pepe Reyes MD Work Phone: [facility] 11-14-2024 08:45-0400 Body height 160.[address] Pepe Reyes MD Work Phone: [facility] 11-14-2024 08:45-0400 Body mass index (BMI) [Ratio] 21.9 kg/m2 Dr. Pepe Reyes MD Work Phone: 6(627)[phone] [place] [address] 11-14-2024 08:45-0400 Body weight 56.[address] Pepe Reyes MD Work Phone: 6(782)[phone] [place] [address] 09-17-2024 15:59-0400 Body temperature 97.7 [degF] Dr. Pepe Reyes MD Work Phone: 6(090)[phone] [place] [address] 09-17-2024 15:59-0400 Diastolic blood pressure 69 mm[Hg] Dr. Pepe Reyes MD Work Phone: 0(826)[phone] [place] [address] 09-17-2024 15:59-0400 Heart rate 89 /min Dr. Pepe Reyes MD Work Phone: 2(521)447-922950 [place] [address] 09-17-2024 15:59-0400 Respiratory rate 16 /min Dr. Pepe Reyes MD Work Phone: 2(855)[phone] [place] [address] 09-17-2024 15:59-0400 SaO2% (BldA) [Mass fraction] 100 % Dr. Pepe Reyes MD Work Phone: 7(394)[phone] [place] [address] 09-17-2024 15:59-0400 Systolic blood pressure 118 mm[Hg] Dr. Pepe Reyes MD Work Phone: 2(977)[phone] [place] [address] 09-17-2024 12:49-0400 Body height 160.[address] Pepe Reyes MD Work Phone: [facility] 09-17-2024 12:49-0400 Body mass index (BMI) [Ratio] 22.1 kg/m2 Dr. Pepe Reyes MD Work Phone: [facility] 09-17-2024 12:49-0400 Body weight 56.[address] Pepe Reyes MD Work Phone: [facility] 09-02-2024 12:36-0500 Body mass index (BMI) [Ratio] 23.15 kg/m2 Pepe Reyes MD Work Phone: [facility] 09-02-2024 12:36-0500 Body weight 57.4 kg Pepe Reyes MD Work Phone: [facility] 09-02-2024 12:36-0500 Diastolic blood pressure 80 mm[Hg] Pepe Reyes MD Work Phone: [facility] 09-02-2024 12:36-0500 Heart rate 76 /min Pepe Reyes MD Work Phone: [facility] 09-02-2024 12:36-0500 Respiratory rate 18 /min Pepe Reyes MD Work Phone: [facility] 09-02-2024 12:36-0500 Systolic blood pressure 128 mm[Hg] Pepe Reyes MD Work Phone: [facility] 08-15-2024 12:06-0500 Diastolic blood pressure 71 mm[Hg] Dr. Pepe Reyes MD Work Phone: [facility] 08-15-2024 12:06-0500 Heart rate 93 /min Dr. Pepe Reeys MD Work Phone: [facility] 08-15-2024 12:06-0500 Respiratory rate 16 /min Dr. Pepe Reyes MD Work Phone: [facility] 08-15-2024 12:06-0500 SaO2% (BldA) [Mass fraction] 97 % Dr. Pepe Reyes MD Work Phone: [facility] 08-15-2024 12:06-0500 Systolic blood pressure 141 mm[Hg] Dr. Pepe Reyes MD Work Phone: [facility] 08-15-2024 10:33-0500 Body mass index (BMI) [Ratio] 21.9 kg/m2 Dr. Pepe Reyes MD Work Phone: [facility] 08-15-2024 10:33-0500 Body weight 56.[address] Pepe Reyes MD Work Phone: [facility] 06-10-2024 13:45-0500 Body mass index (BMI) [Ratio] 23.06 kg/m2 Pepe Reyes MD Work Phone: [facility] 06-10-2024 13:45-0500 Body weight 57.2 kg Pepe Reyes MD Work Phone: [facility] 06-10-2024 13:45-0500 Diastolic blood pressure 70 mm[Hg] Pepe Reyes MD Work Phone: [facility] 06-10-2024 13:45-0500 Heart rate 78 /min Pepe Reyes MD Work Phone: [facility] 06-10-2024 13:45-0500 Respiratory rate 16 /min Pepe Reyes MD Work Phone: [facility] 06-10-2024 13:45-0500 Systolic blood pressure 120 mm[Hg] Pepe Reyes MD Work Phone: [facility] 05-26-2024 11:00-0500 Diastolic blood pressure 88 mm[Hg] Dr. Pepe Reyes MD Work Phone: [facility] 05-26-2024 11:00-0500 Heart rate 79 /min Dr. Pepe Reyes MD Work Phone: [facility] 05-26-2024 11:00-0500 Respiratory rate 16 /min Dr. Pepe Reyes MD Work Phone: [facility] 05-26-2024 11:00-0500 SaO2% (BldA) [Mass fraction] 99 % Dr. Pepe Reyes MD Work Phone: [facility] 05-26-2024 11:00-0500 Systolic blood pressure 132 mm[Hg] Dr. Pepe Reyes MD Work Phone: [facility] 05-26-2024 07:43-0500 Body mass index (BMI) [Ratio] 22.4 kg/m2 Dr. Pepe Reyes MD Work Phone: [facility] 05-26-2024 07:43-0500 Body temperature 97.6 [degF] Dr. Pepe Reyes MD Work Phone: [facility] 05-26-2024 07:43-0500 Body weight 57.[address] Pepe Reyes MD Work Phone: [facility] 05-17-2024 13:45-0500 Body mass index (BMI) [Ratio] 23.19 kg/m2 Elise Crocker CARDIOPULMONARY SPECIALIST.CANCER REGISTRAR Work Phone: [facility] 05-17-2024 13:45-0500 Body temperature 99.39 [degF] Elise Crocker CARDIOPULMONARY SPECIALIST.CANCER REGISTRAR Work Phone: [facility] 05-17-2024 13:45-0500 Body weight 57.5 kg Elise Crocker CARDIOPULMONARY SPECIALIST.CANCER REGISTRAR Work Phone: [facility] 05-17-2024 13:45-0500 Diastolic blood pressure 88 mm[Hg] Elise Evanshodebbi CARDIOPULMONARY SPECIALIST.CANCER REGISTRAR Work Phone: [facility] 05-17-2024 13:45-0500 Heart rate 120 /min Elise Crocker CARDIOPULMONARY SPECIALIST.CANCER REGISTRAR Work Phone: [facility] 05-17-2024 13:45-0500 Respiratory rate 16 /min Elise Crocker CARDIOPULMONARY SPECIALIST.CANCER REGISTRAR Work Phone: [facility] 05-17-2024 13:45-0500 SaO2% (BldA) [Mass fraction] 98 % Elise Crocker CARDIOPULMONARY SPECIALIST.CANCER REGISTRAR Work Phone: [facility] 05-17-2024 13:45-0500 Systolic blood pressure 120 mm[Hg] Elise Crocker CARDIOPULMONARY SPECIALIST.CANCER REGISTRAR Work Phone: [facility] 04-24-2024 18:58-0400 Body mass index (BMI) [Ratio] 23.75 kg/m2 Mohinder House CARDIOPULMONARY SPECIALIST.CANCER REGISTRAR Work Phone: [facility] 04-24-2024 18:58-0400 Body temperature 98.91 [degF] Mohinder House CARDIOPULMONARY SPECIALIST.CANCER REGISTRAR Work Phone: [facility] 04-24-2024 18:58-0400 Body weight 58.9 kg Mohinder House CARDIOPULMONARY SPECIALIST.CANCER REGISTRAR Work Phone: [facility] 04-24-2024 18:58-0400 Diastolic blood pressure 76 mm[Hg] Mohinder House CARDIOPULMONARY SPECIALIST.CANCER REGISTRAR Work Phone: [facility] 04-24-2024 18:58-0400 Heart rate 107 /min Mohinder House CARDIOPULMONARY SPECIALIST.CANCER REGISTRAR Work Phone: [facility] 04-24-2024 18:58-0400 Respiratory rate 16 /min Mohinder House CARDIOPULMONARY SPECIALIST.CANCER REGISTRAR Work Phone: [facility] 04-24-2024 18:58-0400 SaO2% (BldA) [Mass fraction] 98 % Mohinder House CARDIOPULMONARY SPECIALIST.CANCER REGISTRAR Work Phone: [facility] 04-24-2024 18:58-0400 Systolic blood pressure 128 mm[Hg] Mohinder House CARDIOPULMONARY SPECIALIST.CANCER REGISTRAR Work Phone: [facility] 03-15-2024 07:37-0400 Body mass index (BMI) [Ratio] 23.19 kg/m2 Rob Cardenas CARDIOPULMONARY SPECIALIST.CANCER REGISTRAR Work Phone: [facility] 03-15-2024 07:37-0400 Body temperature 98.4 [degF] Rob Cardenas CARDIOPULMONARY SPECIALIST.CANCER REGISTRAR Work Phone: [facility] 03-15-2024 07:37-0400 Body weight 57.5 kg Rob Ronald CARDIOPULMONARY SPECIALIST.CANCER REGISTRAR Work Phone: [facility] 03-15-2024 07:37-0400 Diastolic blood pressure 76 mm[Hg] Rob Ronald CARDIOPULMONARY SPECIALIST.CANCER REGISTRAR Work Phone: [facility] 03-15-2024 07:37-0400 Heart rate 114 /min Rob Ronald CARDIOPULMONARY SPECIALIST.CANCER REGISTRAR Work Phone: [facility] 03-15-2024 07:37-0400 SaO2% (BldA) [Mass fraction] 98 % Rob Ronald CARDIOPULMONARY SPECIALIST.CANCER REGISTRAR Work Phone: [facility] 03-15-2024 07:37-0400 Systolic blood pressure 110 mm[Hg] Rob Ronald CARDIOPULMONARY SPECIALIST.CANCER REGISTRAR Work Phone: [facility] 02-26-2024 12:49-0400 Body mass index (BMI) [Ratio] 23.35 kg/m2 Pepe Reyes MD Work Phone: [facility] 02-26-2024 12:49-0400 Body weight 57.9 kg Pepe Reyes MD Work Phone: [facility] 02-26-2024 12:49-0400 Diastolic blood pressure 64 mm[Hg] Pepe Reyes MD Work Phone: [facility] 02-26-2024 12:49-0400 Heart rate 88 /min Pepe Reyes MD Work Phone: [facility] 02-26-2024 12:49-0400 Respiratory rate 18 /min Pepe Reyes MD Work Phone: [facility] 02-26-2024 12:49-0400 Systolic blood pressure 104 mm[Hg] Pepe Reyes MD Work Phone: [facility] 11-20-2023 10:34-0400 Body mass index (BMI) [Ratio] 23.05 kg/m2 Peterson Norton CARDIOPULMONARY SPECIALIST.CANCER REGISTRAR Work Phone: [facility] 11-20-2023 10:34-0400 Body weight 57.15 kg Peterson Cierra CARDIOPULMONARY SPECIALIST.CANCER REGISTRAR Work Phone: [facility] 09-19-2023 11:07-0400 Body temperature 97.11 [degF] Rob Ronald CARDIOPULMONARY SPECIALIST.CANCER REGISTRAR Work Phone: [facility] 09-19-2023 11:07-0400 Body weight 58.15 kg Rob Ronald CARDIOPULMONARY SPECIALIST.CANCER REGISTRAR Work Phone: [facility] 09-19-2023 11:07-0400 Diastolic blood pressure 73 mm[Hg] Rob Ronald CARDIOPULMONARY SPECIALIST.CANCER REGISTRAR Work Phone: [facility] 09-19-2023 11:07-0400 Heart rate 112 /min Rob Ronald CARDIOPULMONARY SPECIALIST.CANCER REGISTRAR Work Phone: [facility] 09-19-2023 11:07-0400 Respiratory rate 16 /min Rob Ronald CARDIOPULMONARY SPECIALIST.CANCER REGISTRAR Work Phone: [facility] 09-19-2023 11:07-0400 SaO2% (BldA) [Mass fraction] 99 % Rob Ronald CARDIOPULMONARY SPECIALIST.CANCER REGISTRAR Work Phone: [facility] 09-19-2023 11:07-0400 Systolic blood pressure 117 mm[Hg] Rob Ronald CARDIOPULMONARY SPECIALIST.CANCER REGISTRAR Work Phone: [facility] 08-18-2023 09:46-0500 Body weight 58.06 kg Elise Mccallf CARDIOPULMONARY SPECIALIST.CANCER REGISTRAR Work Phone: [facility] 08-18-2023 09:46-0500 Diastolic blood pressure 80 mm[Hg] Elise Tannhof CARDIOPULMONARY SPECIALIST.CANCER REGISTRAR Work Phone: [facility] 08-18-2023 09:46-0500 Heart rate 102 /min Elisemalaika Evanshof CARDIOPULMONARY SPECIALIST.CANCER REGISTRAR Work Phone: [facility] 08-18-2023 09:46-0500 Respiratory rate 16 /min Elise Evanshof CARDIOPULMONARY SPECIALIST.CANCER REGISTRAR Work Phone: [facility] 08-18-2023 09:46-0500 SaO2% (BldA) [Mass fraction] 98 % Elise Tannhof CARDIOPULMONARY SPECIALIST.CANCER REGISTRAR Work Phone: [facility] 08-18-2023 09:46-0500 Systolic blood pressure 120 mm[Hg] Elise Tannhof CARDIOPULMONARY SPECIALIST.CANCER REGISTRAR Work Phone: [facility] 03-22-2023 08:32-0400 Body temperature 98.49 [degF] Jina Ruiz CARDIOPULMONARY SPECIALIST.CANCER REGISTRAR Work Phone: [facility] 03-22-2023 08:32-0400 Body weight 57.7 kg Jina Ruiz CARDIOPULMONARY SPECIALIST.CANCER REGISTRAR Work Phone: [facility] 03-22-2023 08:32-0400 Diastolic blood pressure 86 mm[Hg] Jina Ruiz CARDIOPULMONARY SPECIALIST.CANCER REGISTRAR Work Phone: [facility] 03-22-2023 08:32-0400 Heart rate 85 /min Jina Ruiz CARDIOPULMONARY SPECIALIST.CANCER REGISTRAR Work Phone: [facility] 03-22-2023 08:32-0400 Respiratory rate 21 /min Jina Ruiz CARDIOPULMONARY SPECIALIST.CANCER REGISTRAR Work Phone: [facility] 03-22-2023 08:32-0400 SaO2% (BldA) [Mass fraction] 98 % Jina Ruiz CARDIOPULMONARY SPECIALIST.CANCER REGISTRAR Work Phone: [facility] 03-22-2023 08:32-0400 Systolic blood pressure 118 mm[Hg] Jina Ruiz CARDIOPULMONARY SPECIALIST.CANCER REGISTRAR Work Phone: [facility] 02-27-2023 12:48-0400 Body weight 57.42 kg Pepe Reyes MD Work Phone: [facility] 02-27-2023 12:48-0400 Diastolic blood pressure 70 mm[Hg] Pepe Reyes MD Work Phone: [facility] 02-27-2023 12:48-0400 Heart rate 74 /min Pepe Reyes MD Work Phone: [facility] 02-27-2023 12:48-0400 Respiratory rate 16 /min Pepe Reyes MD Work Phone: [facility] 02-27-2023 12:48-0400 Systolic blood pressure 122 mm[Hg] Pepe Reyes MD Work Phone: [facility] 12-02-2022 16:19-0400 Body temperature 99.39 [degF] Jina Ruiz CARDIOPULMONARY SPECIALIST.CANCER REGISTRAR Work Phone: [facility] 12-02-2022 16:19-0400 Body weight 58.97 kg Jina Ruiz CARDIOPULMONARY SPECIALIST.CANCER REGISTRAR Work Phone: [facility] 12-02-2022 16:19-0400 Diastolic blood pressure 68 mm[Hg] Jina Ruiz CARDIOPULMONARY SPECIALIST.CANCER REGISTRAR Work Phone: [facility] 12-02-2022 16:19-0400 Heart rate 98 /min Jina Ruiz CARDIOPULMONARY SPECIALIST.CANCER REGISTRAR Work Phone: [facility] 12-02-2022 16:19-0400 Respiratory rate 18 /min Jina Ruiz CARDIOPULMONARY SPECIALIST.CANCER REGISTRAR Work Phone: [facility] 12-02-2022 16:19-0400 SaO2% (BldA) [Mass fraction] 97 % Jina Ruiz CARDIOPULMONARY SPECIALIST.CANCER REGISTRAR Work Phone: [facility] 12-02-2022 16:19-0400 Systolic blood pressure 120 mm[Hg] Jina Ruiz CARDIOPULMONARY SPECIALIST.CANCER REGISTRAR Work Phone: [facility] 11-01-2022 09:53-0400 Body weight 58.97 kg Peterson Smithfield CARDIOPULMONARY SPECIALIST.CANCER REGISTRAR Work Phone: [facility] 11-01-2022 09:53-0400 Diastolic blood pressure 62 mm[Hg] Peterson Smithfield CARDIOPULMONARY SPECIALIST.CANCER REGISTRAR Work Phone: [facility] 11-01-2022 09:53-0400 Heart rate 108 /min Peterson Smithfield CARDIOPULMONARY SPECIALIST.CANCER REGISTRAR Work Phone: [facility] 11-01-2022 09:53-0400 Respiratory rate 18 /min Peterson Norton CARDIOPULMONARY SPECIALIST.CANCER REGISTRAR Work Phone: [facility] 11-01-2022 09:53-0400 SaO2% (BldA) [Mass fraction] 96 % Peterson Norton CARDIOPULMONARY SPECIALIST.CANCER REGISTRAR Work Phone: [facility] 11-01-2022 09:53-0400 Systolic blood pressure 112 mm[Hg] Peterson Norton CARDIOPULMONARY SPECIALIST.CANCER REGISTRAR Work Phone: [facility] 10-31-2022 08:44-0400 Body temperature 98.49 [degF] Rob Ronald CARDIOPULMONARY SPECIALIST.CANCER REGISTRAR Work Phone: [facility] 10-31-2022 08:44-0400 Body weight 59.06 kg Rob Ronald CARDIOPULMONARY SPECIALIST.CANCER REGISTRAR Work Phone: [facility] 10-31-2022 08:44-0400 Diastolic blood pressure 79 mm[Hg] Rob Ronald CARDIOPULMONARY SPECIALIST.CANCER REGISTRAR Work Phone: [facility] 10-31-2022 08:44-0400 Heart rate 104 /min Rob Ronald CARDIOPULMONARY SPECIALIST.CANCER REGISTRAR Work Phone: [facility] 10-31-2022 08:44-0400 Respiratory rate 16 /min Rob Ronald CARDIOPULMONARY SPECIALIST.CANCER REGISTRAR Work Phone: [facility] 10-31-2022 08:44-0400 SaO2% (BldA) [Mass fraction] 97 % Rob Ronald CARDIOPULMONARY SPECIALIST.CANCER REGISTRAR Work Phone: [facility] 10-31-2022 08:44-0400 Systolic blood pressure 127 mm[Hg] Rob Ronald CARDIOPULMONARY SPECIALIST.CANCER REGISTRAR Work Phone: [facility] 10-20-2022 10:06-0400 Body weight 58.97 kg Elise Crocker CARDIOPULMONARY SPECIALIST.CANCER REGISTRAR Work Phone: [facility] 10-20-2022 10:06-0400 Diastolic blood pressure 74 mm[Hg] Elise Tannhof CARDIOPULMONARY SPECIALIST.CANCER REGISTRAR Work Phone: [facility] 10-20-2022 10:06-0400 Heart rate 113 /min Elise Tannhof CARDIOPULMONARY SPECIALIST.CANCER REGISTRAR Work Phone: [facility] 10-20-2022 10:06-0400 Respiratory rate 20 /min Elise Tannhof CARDIOPULMONARY SPECIALIST.CANCER REGISTRAR Work Phone: [facility] 10-20-2022 10:06-0400 SaO2% (BldA) [Mass fraction] 97 % Elise Tannhof CARDIOPULMONARY SPECIALIST.CANCER REGISTRAR Work Phone: [facility] 10-20-2022 10:06-0400 Systolic blood pressure 104 mm[Hg] Elise Tannhof CARDIOPULMONARY SPECIALIST.CANCER REGISTRAR Work Phone: [facility] 09-05-2022 10:34-0500 Body temperature 97.3 [degF] Rob Ronald CARDIOPULMONARY SPECIALIST.CANCER REGISTRAR Work Phone: [facility] 09-05-2022 10:34-0500 Body weight 58.51 kg Rob Ronald CARDIOPULMONARY SPECIALIST.CANCER REGISTRAR Work Phone: [facility] 09-05-2022 10:34-0500 Diastolic blood pressure 72 mm[Hg] Rob Ronald CARDIOPULMONARY SPECIALIST.CANCER REGISTRAR Work Phone: [facility] 09-05-2022 10:34-0500 Heart rate 83 /min Rob Ronald CARDIOPULMONARY SPECIALIST.CANCER REGISTRAR Work Phone: [facility] 09-05-2022 10:34-0500 Respiratory rate 18 /min Rob Ronald CARDIOPULMONARY SPECIALIST.CANCER REGISTRAR Work Phone: [facility] 09-05-2022 10:34-0500 SaO2% (BldA) [Mass fraction] 100 % Rob Ronald CARDIOPULMONARY SPECIALIST.CANCER REGISTRAR Work Phone: [facility] 09-05-2022 10:34-0500 Systolic blood pressure 123 mm[Hg] Rob Ronald CARDIOPULMONARY SPECIALIST.CANCER REGISTRAR Work Phone: [facility] 08-29-2022 12:49-0500 Body weight 58.92 kg Pepe Reyes MD Work Phone: [facility] 08-29-2022 12:49-0500 Diastolic blood pressure 78 mm[Hg] Pepe Reyes MD Work Phone: [facility] 08-29-2022 12:49-0500 Heart rate 96 /min Pepe Reyes MD Work Phone: [facility] 08-29-2022 12:49-0500 Respiratory rate 16 /min Pepe Reyes MD Work Phone: [facility] 08-29-2022 12:49-0500 Systolic blood pressure 124 mm[Hg] Pepe Reyes MD Work Phone: [facility] 07-12-2022 13:52-0500 Body weight 58.06 kg Rob Cardenas CARDIOPULMONARY SPECIALIST.CANCER REGISTRAR Work Phone: [facility] 07-12-2022 13:52-0500 Diastolic blood pressure 82 mm[Hg] Rob Eagleil CARDIOPULMONARY SPECIALIST.CANCER REGISTRAR Work Phone: [facility] 07-12-2022 13:52-0500 Heart rate 92 /min Rob Cardenas CARDIOPULMONARY SPECIALIST.CANCER REGISTRAR Work Phone: [facility] 07-12-2022 13:52-0500 Respiratory rate 18 /min Rob Eagleil CARDIOPULMONARY SPECIALIST.CANCER REGISTRAR Work Phone: [facility] 07-12-2022 13:52-0500 SaO2% (BldA) [Mass fraction] 98 % Rob Cardenas CARDIOPULMONARY SPECIALIST.CANCER REGISTRAR Work Phone: [facility] 07-12-2022 13:52-0500 Systolic blood pressure 130 mm[Hg] Rob Eagleil CARDIOPULMONARY SPECIALIST.CANCER REGISTRAR Work Phone: [facility] 06-21-2022 07:39-0500 Body temperature 98.2 [degF] Kiley Chang CARDIOPULMONARY SPECIALIST.CANCER REGISTRAR Work Phone: [facility] 06-21-2022 07:39-0500 Body weight 59.78 kg Kiley Callow CARDIOPULMONARY SPECIALIST.CANCER REGISTRAR Work Phone: [facility] 06-21-2022 07:39-0500 Diastolic blood pressure 78 mm[Hg] Kiley Callow CARDIOPULMONARY SPECIALIST.CANCER REGISTRAR Work Phone: [facility] 06-21-2022 07:39-0500 Heart rate 91 /min Kiley Callow CARDIOPULMONARY SPECIALIST.CANCER REGISTRAR Work Phone: [facility] 06-21-2022 07:39-0500 Respiratory rate 18 /min Kiley Callow CARDIOPULMONARY SPECIALIST.CANCER REGISTRAR Work Phone: [facility] 06-21-2022 07:39-0500 SaO2% (BldA) [Mass fraction] 97 % Kiley Callow CARDIOPULMONARY SPECIALIST.CANCER REGISTRAR Work Phone: [facility] 06-21-2022 07:39-0500 Systolic blood pressure 120 mm[Hg] Kiley Callow CARDIOPULMONARY SPECIALIST.CANCER REGISTRAR Work Phone: [facility] 02-21-2022 14:02-0400 Body weight 57.34 kg Pepe Reyes MD Work Phone: [facility] 02-21-2022 14:02-0400 Diastolic blood pressure 70 mm[Hg] Pepe Reyes MD Work Phone: [facility] 02-21-2022 14:02-0400 Heart rate 80 /min Pepe Reyes MD Work Phone: [facility] 02-21-2022 14:02-0400 Respiratory rate 16 /min Pepe Reyes MD Work Phone: [facility] 02-21-2022 14:02-0400 Systolic blood pressure 116 mm[Hg] Pepe Reyes MD Work Phone: [facility] 10-11-2021 08:42-0400 Body temperature 97.81 [degF] Rob Cardenas CARDIOPULMONARY SPECIALIST.CANCER REGISTRAR Work Phone: [facility] 10-11-2021 08:42-0400 Body weight 56.7 kg Rob Ronald CARDIOPULMONARY SPECIALIST.CANCER REGISTRAR Work Phone: [facility] 10-11-2021 08:42-0400 Diastolic blood pressure 80 mm[Hg] Rob Ronald CARDIOPULMONARY SPECIALIST.CANCER REGISTRAR Work Phone: [facility] 10-11-2021 08:42-0400 Heart rate 96 /min Rob Ronald CARDIOPULMONARY SPECIALIST.CANCER REGISTRAR Work Phone: [facility] 10-11-2021 08:42-0400 Respiratory rate 16 /min Orb Ronald CARDIOPULMONARY SPECIALIST.CANCER REGISTRAR Work Phone: [facility] 10-11-2021 08:42-0400 SaO2% (BldA) [Mass fraction] 99 % Rob Eagleil CARDIOPULMONARY SPECIALIST.CANCER REGISTRAR Work Phone: [facility] 10-11-2021 08:42-0400 Systolic blood pressure 112 mm[Hg] Rob Cardenas CARDIOPULMONARY SPECIALIST.CANCER REGISTRAR Work Phone: [facility] Encounters Encounter Date Encounter Type Care Provider Facility Start: 05-14-2025 ambulatory KEV CAMPOS Facility:[facility] Start: 05-14-2025 ambulatory KEV CAMPOS Facility:[facility] Start: 05-09-2025 End: 05-09-2025 Emergency department patient visit Garry Martinez Facility:[facility] Start: 04-28-2025 End: 04-28-2025 ambulatory KEV CAMPOS Facility:[facility] Start: 04-28-2025 End: 04-28-2025 ambulatory KEV CAMPOS Facility:[facility] Start: 04-21-2025 End: 04-21-2025 ambulatory PEPE REYES Facility:[facility] Start: 04-12-2025 End: 04-12-2025 ambulatory JINA RUIZ Facility:[facility] Start: 03-18-2025 End: 03-18-2025 Office outpatient visit 25 minutes Pepe Reyes MD Work Phone: [facility] [place] Comment on above: Hypothyroidism, unsp ecified type (Primary Dx); Screening for depression; Encounter for screening examination for other mental health and behavioral disorders; Need for influenza vaccination; Hyperlipidemia, unspecified hyperlipidemia type; Gastroesophageal reflux disease, unspecified whether esophagitis present; Irritable bowel syndrome, unspecified type; Elevated glucose; Smoker Start: 03-18-2025 End: 03-18-2025 ambulatory SASSER Mando [facility] Facility:[facility] Start: 03-08-2025 End: 03-08-2025 [facility] Facility:[facility] Start: 02-15-2025 End: 02-15-2025 Office outpatient visit 25 minutes Rochelle Brice MD Work Phone: [facility] [place] Comment on above: Acute non-recurrent sinusitis, unspecified location (Primary Dx); Acute bronchitis, unspecified organism Start: 02-15-2025 End: 02-15-2025 ambulatory ROCHELLE BRICE Facility:[facility] Start: 02-10-2025 End: 02-10-2025 Subsequent hospital visit by physician Cornelia [facility] [place] [facility] Work Phone: Radiology Comment on above: Shoulder impingement [M25.819] Start: 02-10-2025 End: 02-10-2025 Patient encounter procedure Belinda Jason PA-C Work Phone: Orthopaedics Comment on above: Calcific tendinitis of right shoulder (Primary Dx); Primary osteoarthritis of left knee Start: 02-10-2025 End: 02-10-2025 ambulatory [facility] Facility:[facility] Start: 01-30-2025 End: 01-30-2025 Refill Pepe Reyes MD Work Phone: [facility] [place] Comment on above: Refill Request Start: 01-27-2025 End: 01-27-2025 Refill Rob Cardenas APRN.CANCER REGISTRAR Work Phone: [facility] [place] Comment on above: Refill Request Start: 01-01-2025 End: 01-01-2025 Orders Only Marielos Armas APRN.CANCER REGISTRAR Work Phone: Pulmonary Medicine Comment on above: Cigarette smoker (Pr imary Dx) Start: 12-26-2024 End: 12-26-2024 Telephone encounter Tangela Hinojosa APRN.CNP Work Phone: [facility] Comment on above: Patient Update Start: 12-23-2024 End: 12-23-2024 Patient encounter procedure Tangela Hinojosa APRN.CANCER REGISTRAR Work Phone: [facility] Comment on above: Insect bite of nose, initial encounter (Primary Dx); Cellulitis of skin Start: 12-23-2024 End: 12-23-2024 ambulatory PEPE REYES Facility:[facility] Start: 12-19-2024 End: 12-19-2024 Patient encounter procedure Janay DAVIS -[facility] Work Phone: Start: 12-19-2024 End: 12-19-[address] Pepe Reyes MD Work Phone: [facility] Work Phone: Start: 12-09-2024 ambulatory Chucky Woodall Facility :[facility] Start: 12-03-2024 End: 12-03-2024 ambulatory Pepe Reyes MD Work Phone: [facility] [place] Start: 12-03-2024 End: 12-03-2024 Patient encounter procedure Pepe Reyes MD Work Phone: [facility] Comment on above: Population Health Na vigation Outreach ([facility] ) Start: 11-15-2024 End: 11-15-2024 Office outpatient visit 15 minutes Pepe Reyes MD Work Phone: [facility] Comment on above: Gastritis, bile acid reflux (Primary Dx); Gastroesophageal reflux disease, unspecified whether esophagitis present; Irritable bowel syndrome, unspecified type Start: 11-15-2024 End: 11-15-2024 ambulatory PEPE REYES Facility:[facility] Start: 11-14-2024 End: 11-14-2024 Patient encounter procedure Janay DAVIS -[facility] Work Phone: Start: 11-14-2024 End: 11-14-[address] Pepe Reyes MD Work Phone: [facility] Work Phone: Start: 11-07-2024 End: 11-07-2024 Refill Pepe Reyes MD Work Phone: [facility] Comment on above: Refill Request Start: 10-24-2024 End: 10-24-2024 Patient encounter procedure Chucky Woodall DO [facility] Work Phone: Start: 10-24-2024 End: 10-24-2024 ambulatory Chucky Talisha Facility:[facility] Start: 10-18-2024 End: 10-18-2024 Patient encounter procedure Belinda Jason PA-C Work Phone: Orthopaedics Comment on above: Primary osteoarthrit is of both knees (Primary Dx) Start: 10-18-2024 End: 10-18-2024 ambulatory PEPE REYES Facility:[facility] Start: 09-30-2024 End: 09-30-2024 ambulatory PEPE REYES Facility:[facility] Start: 09-30-2024 End: 09-30-2024 Patient encounter procedure Belinda Jason PA-C Work Phone: Orthopaedics Comment on above: Primary osteoarthrit is of both knees (Primary Dx); Chondrocalcinosis of knee, unspecified laterality Start: 09-17-2024 ambulatory Chucky Talisha Facility :[facility] Start: 09-17-2024 End: 09-17-2024 Admission to same day surgery center Chucky Woodall DO -Endoscopy Work Phone: Start: 09-17-2024 End: 09-17-[address] Pepe Reyes MD Work Phone: [facility] Work Phone: Start: 09-17-2024 Non-patient / Non-visit Chucky Bal nd DO -[facility] Start: 09-02-2024 End: 09-02-2024 ambulatory PEPE REYES Facility:[facility] Start: 09-02-2024 End: 09-02-2024 Patient encounter procedure Pepe Reyes MD Work Phone: [facility] [place] Comment on above: Irritable bowel synd avelina, unspecified type (Primary Dx); Hyperlipidemia, unspecified hyperlipidemia type; Hypothyroidism, unspecified type; Elevated glucose; Gastroesophageal reflux disease, unspecified whether esophagitis present; Chronic bilateral low back pain with bilateral sciatica; Smoker Start: 08-26-2024 End: 08-26-2024 ambulatory PEPE REYES Facility:[facility] Start: 08-15-2024 End: 08-15-2024 Patient encounter procedure Chucky Woodall DO -[facility] Work Phone: Start: 08-15-2024 End: 08-15-2024 ambulatory Chucky [place] Facility:[facility] Start: 07-29-2024 End: 07-29-2024 Refill Pepe Reyes MD Work Phone: [facility] [place] Comment on above: Refill Request Start: 06-28-2024 End: 06-28-2024 Patient encounter procedure Chucky Woodall DO -Laboratory, Specimen Work Phone: Start: 06-27-2024 End: 06-27-2024 Patient encounter procedure Chucky Woodall DO -Laboratory Work Phone: Start: 06-27-2024 End: 06-28-2024 ambulatory Chucky Woodall Facility:[facility] Start: 06-27-2024 End: 06-27-2024 Patient encounter procedure Chucky Woodall [facility] Work Phone: Start: 06-27-2024 End: 06-27-2024 ambulatory Chucky [place] Facility:[facility] Start: 06-10-2024 End: 06-10-2024 ambulatory PEPE REYES Facility:[facility] Start: 06-10-2024 End: 06-10-2024 Patient encounter procedure Pepe Reyes MD Work Phone: [facility] [place] Comment on above: Irritable bowel synd avelina, unspecified type (Primary Dx); Generalized abdominal pain; Gastroenteritis Start: 06-04-2024 End: 06-04-2024 ambulatory Maddie Kwon RN Work Phone: [facility] Comment on above: DYLAN WELSH RN ( ED utilization review per request of payor ) Start: 05-26-2024 End: 05-26-2024 Emergency department patient visit Dr. Yas Winchester DO -Emergency Department Work Phone: Start: 05-17-2024 End: 05-17-2024 Patient encounter procedure Elise Crocker CARDIOPULMONARY SPECIALIST.CANCER REGISTRAR Work Phone: Family [facility] [place] Comment on above: Bacterial sinusitis (Primary Dx) Start: 05-17-2024 End: 05-17-2024 ambulatory PEPE REYES Facility:[facility] Start: 05-13-2024 End: 05-13-2024 Refill Pepe Reyes MD Work Phone: Family [facility] [place] Comment on above: Refill Request Primary osteoarthrit is of both knees (Primary Dx) Left knee pain, unsp ecified chronicity [M25.562] Start: 04-24-2024 End: 04-24-2024 Office outpatient visit 15 minutes Mohinder House CARDIOPULMONARY SPECIALIST.CANCER REGISTRAR Work Phone: [place] [facility] Comment on above: Accidental insect st ing (Primary Dx) Start: 04-23-2024 End: 04-23-2024 Orders Only Belinda Jason PA-C Work Phone: Orthopaedics Comment on above: Left knee pain, unsp ecified chronicity (Primary Dx) Start: 04-15-2024 End: 04-15-2024 Refill Pepe Reyes MD Work Phone: [facility] [place] Comment on above: Refill Request Start: 03-16-2024 End: 03-18-2024 Telephone encounter Pepe Reyes MD Work Phone: Internal Medicine [place] Comment on above: Results Start: 03-15-2024 End: 03-15-2024 Office outpatient visit 25 minutes Rob Cardenas CARDIOPULMONARY SPECIALIST.CANCER REGISTRAR Work Phone: [facility] [place] Comment on above: Sinobronchitis (Prim rosario Dx); Body aches; Fever and chills Start: 03-05-2024 End: 03-06-2024 Telephone encounter Pepe Reyes MD Work Phone: [facility] [place] Comment on above: Insurance Authorizat ion Start: 02-26-2024 End: 02-26-2024 Patient encounter procedure Pepe Reyes MD Work Phone: [facility] [place] Comment on above: Gastroesophageal ref lux disease, unspecified whether esophagitis present (Primary Dx); Irritable bowel syndrome, unspecified type; Hyperlipidemia, unspecified hyperlipidemia type; Elevated glucose; Hypothyroidism, unspecified type; Smoker; Screening for depression; Encounter for screening examination for other mental health and behavioral disorders; Rosacea Start: 01-08-2024 Refill Pepe tubbs MD Work Phone: [facility] [place] Comment on above: Refill Request Start: 11-20-2023 End: 11-20-2023 Patient encounter procedure Peterson Norton APRN.CANCER REGISTRAR Work Phone: Pulmonary Medicine Comment on above: Lung nodule (Primary Dx); Encounter for screening for lung cancer; Tobacco use current Start: 11-20-2023 End: 11-20-2023 Subsequent hospital visit by physician [facility] ([facility]) Work Phone: Cat Scan Comment on above: Encounter for screen ing for lung cancer [Z12.2] Start: 09-19-2023 End: 09-19-2023 Office outpatient visit 15 minutes Rob Cardenas APRN.CANCER REGISTRAR Work Phone: [facility] [place] Comment on above: Eustachian tube dysf unction, bilateral (Primary Dx) Start: 09-04-2023 Refill Rob MORGAN RN.CANCER REGISTRAR Work Phone: [facility] [place] Comment on above: Refill Request Start: 08-23-2023 Telephone encounter Elise agrawal APRN.CNP Work Phone: [facility] [place] Comment on above: Results (Labs ) Start: 08-21-2023 Telephone encounter Elise Gomez nhof CARDIOPULMONARY SPECIALIST.CANCER REGISTRAR Work Phone: [facility] [place] Comment on above: Results (Covid/Flu/R SV) Start: 08-18-2023 End: 08-18-2023 Patient encounter procedure Elise Crocker APRN.CANCER REGISTRAR Work Phone: [facility] [place] Comment on above: Acute otitis externa of right ear, unspecified type (Primary Dx); Impacted cerumen of right ear; Sinus congestion; Palpitations Start: 05-24-2023 Refill Rob MORGAN RN.CANCER REGISTRAR Work Phone: [facility] [place] Comment on above: Refill Request Start: 04-11-2023 Telephone encounter Khalida Rogers APRN.CANCER REGISTRAR Work Phone: [place] [facility] Comment on above: Results Start: 04-01-2023 End: 04-01-2023 ambulatory [facility] [place] Work Phone: [facility] [place] Start: 03-23-2023 Telephone encounter Krystle Silva APRN.CANCER REGISTRAR Work Phone: [facility] Comment on above: Results Start: 03-22-2023 End: 03-22-2023 Patient encounter procedure Jina Ruiz APRN.CANCER REGISTRAR Work Phone: [facility] Comment on above: Rhinosinusitis (Prim rosario Dx); URI, acute Start: 03-17-2023 Documentation procedure Mammog lamar Coordinator [facility] Start: 03-17-2023 Letter encounter Mammography Coordinator [facility] Department Start: 03-16-2023 End: 03-16-2023 Subsequent hospital visit by physician Screen Mammo [facility] Comment on above: Encounter for screen ing mammogram for breast cancer [Z12.31] Start: 02-27-2023 End: 02-27-2023 Patient encounter procedure Pepe Reyes MD Work Phone: [facility] Comment on above: Hypothyroidism, unsp ecified type (Primary Dx); Encounter for screening mammogram for malignant neoplasm of breast; Hyperlipidemia, unspecified hyperlipidemia type; Gastroesophageal reflux disease, unspecified whether esophagitis present; Irritable bowel syndrome, unspecified type; Nail fungus; Seborrheic keratosis Start: 12-02-2022 End: 12-02-2022 Subsequent hospital visit by physician Xr [facility] [place] Work Phone: Radiology Comment on above: Acute cough [R05.1] Start: 12-02-2022 End: 12-02-2022 Patient encounter procedure Jina Ruiz CARDIOPULMONARY SPECIALIST.CANCER REGISTRAR Work Phone: [facility] Comment on above: Acute cough (Primary Dx); Foreign body in skin of finger, initial encounter Start: 11-15-2022 Telephone encounter Peterson Maldonado cosme CARDIOPULMONARY SPECIALIST.CANCER REGISTRAR Work Phone: Pulmonary Medicine Comment on above: Results Start: 11-14-2022 End: 11-14-2022 Subsequent hospital visit by physician [facility] ([facility]) Work Phone: Cat Scan Comment on above: Encounter for screen ing for lung cancer [Z12.2] Start: 11-07-2022 ambulatory No Pcp Jignesh Headley Marvinise Start: 11-01-2022 End: 11-01-2022 Patient encounter procedure Peterson Cierra CARDIOPULMONARY SPECIALIST.CANCER REGISTRAR Work Phone: Pulmonary Medicine Comment on above: Encounter for screen ing for lung cancer (Primary Dx); Tobacco use current Start: 10-31-2022 Telephone encounter Rob garcia APRN.CANCER REGISTRAR Work Phone: [facility] [place] Comment on above: Results Start: 10-31-2022 End: 10-31-2022 Subsequent hospital visit by physician Xr [facility] [place] Work Phone: Radiology Comment on above: Cough present for gr eater than 3 weeks [R05.8] Start: 10-31-2022 End: 10-31-2022 Office outpatient visit 25 minutes Rob Cardenas APRN.CANCER REGISTRAR Work Phone: [facility] [place] Comment on above: Cough present for gr eater than 3 weeks (Primary Dx); Acute bronchitis, unspecified organism; Gastroesophageal reflux disease, unspecified whether esophagitis present; Encounter for screening for lung cancer Start: 10-26-2022 Telephone encounter Pepe huang MD Work Phone: [facility] [place] Comment on above: Orders Start: 10-20-2022 End: 10-20-2022 Patient encounter procedure Elise Crocker APRN.CANCER REGISTRAR Work Phone: [facility] [place] Comment on above: Acute bronchitis, un specified organism (Primary Dx); Chronic pain of right knee Start: 10-10-2022 End: 10-10-2022 Patient encounter procedure Belinda Jason PA-C Work Phone: Orthopaedics Comment on above: Primary osteoarthrit is of both knees (Primary Dx); Chondrocalcinosis of knee, unspecified laterality Start: 09-06-2022 Telephone encounter Rob garcia APRN.CANCER REGISTRAR Work Phone: [facility] [place] Comment on above: Results Start: 09-05-2022 End: 09-05-2022 Office outpatient visit 25 minutes Rob Cardenas APRN.CANCER REGISTRAR Work Phone: [facility] [place] Comment on above: Bacterial sinusitis (Primary Dx); Fatigue, unspecified type; Sinus congestion Start: 08-29-2022 End: 08-29-2022 Patient encounter procedure Pepe Reyes MD Work Phone: [facility] [place] Comment on above: Hypothyroidism, unsp ecified type (Primary Dx); Hyperlipidemia, unspecified hyperlipidemia type; Gastroesophageal reflux disease, unspecified whether esophagitis present; Irritable bowel syndrome, unspecified type; Elevated glucose; Smoker Start: 07-19-2022 Telephone encounter Rob garcia APRN.CANCER REGISTRAR Work Phone: [facility] [place] Comment on above: Results Start: 07-18-2022 End: 07-18-2022 Subsequent hospital visit by physician Cornelia [facility] [place] Work Phone: Radiology Comment on above: Primary osteoarthrit is of both knees [M17.0] Start: 07-15-2022 Telephone encounter Tato Sree shields DO Work Phone: [facility] [place] Comment on above: Appointment (Returni ng patient) Start: 07-12-2022 End: 07-12-2022 Office outpatient visit 15 minutes Robbernard Cardenas CARDIOPULMONARY SPECIALIST.CANCER REGISTRAR Work Phone: [facility] [place] Comment on above: Gastroesophageal ref lux disease, unspecified whether esophagitis present (Primary Dx); Nail fungus Start: 07-11-2022 Refill Pepe tubbs MD Work Phone: [facility] Comment on above: Refill Request Start: 06-22-2022 Telephone encounter Jina Pernell guzman CARDIOPULMONARY SPECIALIST.CANCER REGISTRAR Work Phone: [facility] Comment on above: Results Start: 06-21-2022 End: 06-21-2022 Patient encounter procedure Kiley Chang CARDIOPULMONARY SPECIALIST.CANCER REGISTRAR Work Phone: [facility] Comment on above: Bacterial sinusitis (Primary Dx); Sinus congestion Start: 03-25-2022 End: 03-25-2022 ambulatory Mi Nurse Work Phone: [facility] [place] Start: 03-08-2022 Refill Colleen Haile APR N.CANCER REGISTRAR Work Phone: Gastroenterology Comment on above: Refill Request Start: 02-21-2022 End: 02-21-2022 Patient encounter procedure Pepe Reyes MD Work Phone: [facility] Comment on above: Hypothyroidism, unsp ecified type (Primary Dx); Hyperlipidemia, unspecified hyperlipidemia type; Elevated glucose; Irritable bowel syndrome, unspecified type; Gastroesophageal reflux disease, unspecified whether esophagitis present; Nail fungus Start: 01-11-2022 End: 01-11-2022 Subsequent hospital visit by physician Diagnostic Mammo [facility] Start: 12-21-2021 Telephone encounter Pepe huang MD Work Phone: Mammogram Comment on above: Orders Start: 11-10-2021 Telephone encounter Pepe huang MD Work Phone: Mammogram Comment on above: Orders Start: 11-10-2021 End: 11-10-2021 Subsequent hospital visit by physician Screen Mammo [facility] Comment on above: Canceled (CC cx: Equ ipment, Prep, Appropriateness) Start: 11-08-2021 ambulatory Amanda Downey MA [facility] [place] Comment on above: Population Health Na vigation Outreach ([employer]) Start: 11-05-2021 Telephone encounter Rob garcia APRN.CANCER REGISTRAR Work Phone: [facility] Comment on above: Results Start: 11-03-2021 End: 11-03-2021 ambulatory Respiratory Therapist [facility] Work Phone: Pulmonary Medicine Comment on above: Spirometry Start: 11-03-2021 End: 11-03-2021 Patient encounter procedure Respiratory Therapist [facility] Work Phone: [facility] Start: 10-13-2021 ambulatory Pepe tubbs MD Work Phone: Internal Medicine [facility] Start: 10-11-2021 Telephone encounter Rob garcia APRN.CANCER REGISTRAR Work Phone: [facility] Comment on above: Results Start: 10-11-2021 End: 10-11-2021 Subsequent hospital visit by physician Xr [facility] [place] Work Phone: Radiology Comment on above: Sinobronchitis [J32. 9, J40] Start: 10-11-2021 End: 10-11-2021 Patient encounter procedure Rob Cardenas APRN.CANCER REGISTRAR Work Phone: [facility] Comment on above: Sinobronchitis (Prim rosario Dx); Viral URI; Cough Start: 08-22-2020 End: 08-22-2020 Subsequent hospital visit by physician Xr [facility] [place] Work Phone: Radiology Comment on above: Cough [R05] Start: 04-01-2010 Patient encounter status Rob Cardenas APRN.CANCER REGISTRAR Work Phone: [facility] Work Phone: Procedures Date Procedure Procedure Detail Performing Clinician Start: 04-21-2025 Follow-up visit Follow Up BELINDA JASON Start: 03-18-2025 Adult depression scr eening assessment Pepe Reyes MD Work Phone: Start: 02-10-2025 Arthrocentesis aspir &/inj major jt/bursa w/o us Belinda Vetovitz PA-C Work Phone: Start: 02-10-2025 Arthrocentesis aspir &/inj major jt/bursa w/o us Belinda Vetovitz PA-C Work Phone: Start: 10-18-2024 Arthrocentesis aspir &/inj major jt/bursa w/o us Belinda Vetovitz PA-C Work Phone: Start: 09-30-2024 Arthrocentesis aspir &/inj major jt/bursa w/o us Belinda Vetovitz PA-C Work Phone: Start: 09-17-[address] Pepe aponte MD Work Phone: Start: 08-26-2024 Lipid 1996 panel - S cristobal or Plasma Pepe Reyes MD Work Phone: Start: 08-15-2024 MRI of small intestine Dr. Pepe Reyes MD Work Phone: Start: 05-26-2024 [address] e detection Dr. Pepe Reyes MD Work Phone: Start: 05-26-[address] Pepe Reyes MD Work Phone: Start: 05-26-[address] Pepe Reyes MD Work Phone: Start: 05-26-2024 Computed tomography of abdomen and pelvis with intravenous contrast Dr. Pepe Reyes MD Work Phone: Start: 05-13-2024 Arthrocentesis aspir &/inj major jt/bursa w/o us Belinda Vetovitz PA-C Work Phone: Start: 02-26-2024 Adult depression scr eening assessment Pepe Reyes MD Work Phone: Start: 02-19-2024 Lipid 1996 panel - S cristobal or Plasma Pepe Reyes MD Work Phone: Start: 11-20-2023 CT LUNG SCREEN WO [place] Olivarespster CARDIOPULMONARY SPECIALIST.CANCER REGISTRAR Work Phone: Start: 08-21-2023 Lipid 1996 panel - S cristobal or Plasma Elise Crocker CARDIOPULMONARY SPECIALIST.CANCER REGISTRAR Work Phone: Start: 08-18-2023 Ecg routine ecg w/le ast 12 lds i&r only [facility] Provider Start: 04-01-2023 INFLUENZA VACCINE, P RSV FREE, AGE 65+ YR, HIGH DOSE, QUADRIVALENT (FLUZONE HIGH-DOSE) Pepe Reyes MD Work Phone: Start: 03-16-2023 Screening digital br east tomosynthesis bi Bulk Order Provider Start: 02-20-2023 Lipid 1996 panel - S cristobal or Plasma Mammography Coordinator Start: 12-02-2022 Radiologic exam ches t 2 views Jina Ruiz CARDIOPULMONARY SPECIALIST.CANCER REGISTRAR Work Phone: Start: 11-14-2022 CT LUNG SCREEN WO [place] Olivarespster CARDIOPULMONARY SPECIALIST.CANCER REGISTRAR Work Phone: Start: 10-31-2022 Radiologic exam ches t 2 views Rob Cardenas CARDIOPULMONARY SPECIALIST.CANCER REGISTRAR Work Phone: Start: 07-18-2022 Radex spine lumbosac ral 2/3 views Rob Cardenas CARDIOPULMONARY SPECIALIST.CANCER REGISTRAR Work Phone: Start: 03-25-2022 INFLUENZA SEASONAL QUADRIVALENT HIGH DOSE AGE 65+ Mohinder Bahena MD Work Phone: Start: 02-21-2022 Adult depression scr eening assessment Pepe Reyes MD Work Phone: Start: 01-11-2022 End: 01-11-2022 Digital breast tomosynthesis bilateral Pepe Reyes MD Work Phone: Start: 11-10-2021 End: 11-10-2021 Mammography Bulk Order Provider Start: 11-03-2021 Brncdilat rspse spmt ry pre&post-brncdilat admn Rob Cardenas CARDIOPULMONARY SPECIALIST.CESARIO Work Phone: Start: 10-11-2021 Radiologic exam ches t 2 views oRb Cardenas CARDIOPULMONARY SPECIALIST.CANCER REGISTRAR Work Phone: Start: 09-04-2020 Mammography Rob Polly garcia CARDIOPULMONARY SPECIALIST.CESARIO Work Phone: Start: 08-22-2020 Radiologic exam ches t 2 views Sherita Roche CARDIOPULMONARY SPECIALIST.CANCER REGISTRAR Work Phone: Start: 11-13-2018 Colonoscopy Rob garcia CARDIOPULMONARY SPECIALIST.CANCER REGISTRAR Work Phone: Start: 05-29-2017 Adult depression scr eening assessment Rob Cardenas CARDIOPULMONARY SPECIALIST.CANCER REGISTRAR Work Phone: Plan of Treatment Date Care Activity Detail Author Start: 12-13-2029 Urine microalbumin profile [facility] Start: 08-26-2029 Lipid panel Lipid Screening [facility] Start: 02-18-2029 Lipid panel Lipid Screening [facility] Start: 11-13-2028 Colonoscopy COLONOSCOPY [facility] Start: 11-13-2028 COLORECTAL CANCER SCREENING COLORECTAL CANCER SCREENING [facility] Start: 11-13-2028 Screening for malign ant neoplasm of colon [facility] Start: 08-21-2028 Lipid panel Lipid Screening [facility] Start: 03-08-2028 Diabetes Screening Diabetes Screenin [facility] Start: 02-21-2028 Lipid 1996 panel - Serum or Plasma Lipid Screening [facility] Start: 02-21-2028 Lipid panel Lipid Screening [facility] [facility] Start: 02-21-2028 LIPID SCREEN LIPID SCREEN [facility] Start: 08-26-2027 Diabetes Screening Diabetes Screenin g [facility] Start: 08-18-2027 LIPID SCREEN LIPID SCREEN [facility] Start: 02-18-2027 Diabetes Screening Diabetes Screenin g [facility] Start: 02-14-2027 LIPID SCREEN LIPID SCREEN [facility] Start: 08-21-2026 Diabetes Screening Diabetes Screenin g [facility] Start: 08-09-2026 LIPID SCREEN LIPID SCREEN [facility] Start: 03-18-2026 Annual PCP Team Dump Grader danielle Disease Visit Annual PCP Team Chronic Disease Visit [facility] Start: 03-18-2026 Anxiety Screening Anxiety Screening [facility] Start: 03-18-2026 Depression Screening Depression Scre jammie [facility] Start: 02-20-2026 DIABETES SCREEN DIABETES SCREEN [facility] Start: 02-20-2026 Diabetes Screening Diabetes Screenlorrie g [facility] Start: 12-23-2025 Annual PCP Team Dump Grader danielle Disease Visit Annual PCP Team Chronic Disease Visit [facility] Start: 11-15-2025 Annual PCP Team Dump Grader danielle Disease Visit Annual PCP Team Chronic Disease Visit [facility] Start: 09-16-2025 End: 09-16-2025 Patient encounter procedure 09/16/2025 1:00 PM EDT Office Visit Family [facility] [address] [place], [place] [id number] Shayna Hill APRN.CANCER REGISTRAR [address] [place], [place] [id number] transfer care/6 month follow upq [facility] Comment on above: transfer care/6 giovanni h follow upq Start: 09-15-2025 End: 12-15-2025 Comprehensive metabolic 2000 panel - Serum or Plasma COMPREHENSIVE METABOLIC PANEL Lab Routine Hyperlipidemia, unspecified hyperlipidemia type Elevated glucose Expected: 09/15/2025 (Approximate), Expires: 12/15/2025 [facility] Work Phone: Comment on above: Expected: 09/15/2025 (Approximate), Expires: 12/15/2025 Start: 09-15-2025 End: 12-15-2025 Hemoglobin A1c in Blood HEMOGLOBIN A1C Lab Routine Elevated glucose Expected: 09/15/2025 (Approximate), Expires: 12/15/2025 [facility] Comment on above: Expected: 09/15/2025 (Approximate), Expires: 12/15/2025 Start: 09-15-2025 End: 12-15-2025 Lipid 1996 panel - Serum or Plasma LIPID PANEL, FASTING Lab Routine Hyperlipidemia, unspecified hyperlipidemia type Elevated glucose Expected: 09/15/2025 (Approximate), Expires: 12/15/2025 [facility] Comment on above: Expected: 09/15/2025 (Approximate), Expires: 12/15/2025 Start: 09-15-2025 End: 12-15-2025 Thyrotropin [Units/volume] in Serum or Plasma THYROID STIMULATING HORMONE Lab Routine Hypothyroidism, unspecified type Expected: 09/15/2025 (Approximate), Expires: 12/15/2025 [facility] Comment on above: Expected: 09/15/2025 (Approximate), Expires: 12/15/2025 Start: 09-02-2025 Annual PCP Team Dump Grader danielle Disease Visit Annual PCP Team Chronic Disease Visit [facility] Start: 08-18-2025 DIABETES SCREEN DIABETES SCREEN [facility] Start: 06-10-2025 Annual PCP Team Dump Grader danielle Disease Visit Annual PCP Team Chronic Disease Visit [facility] Start: 05-17-2025 Annual PCP Team Dump Grader danielle Disease Visit Annual PCP Team Chronic Disease Visit [facility] Start: 04-21-2025 End: 04-21-2025 Patient encounter procedure 04/21/2025 11:30 AM EDT Office Visit Orthopaedics [address], [place] [address] Belinda Jason PA-C [address] [place] [address] 6 month follow up B\L knee injections Orthopa[facility]ics Comment on above: 6 month follow up B\ L knee injections Start: 03-18-2025 End: 03-18-2025 Patient encounter procedure 03/18/2025 3:00 PM EDT Office Visit [facility] [address] [place] [address] Pepe Reyes MD [address] [place] [address] 6 mo f/u Family [facility] Comment on above: 6 mo f/u Start: 03-15-2025 Annual PCP Team Dump Grader danielle Disease Visit Annual PCP Team Chronic Disease Visit [facility] Start: 03-10-2025 End: 03-10-2025 Patient encounter procedure 03/10/2025 12:40 PM EDT Office Visit [facility] [address] [place] [address] Pepe Reyes MD [address] [place] [address] 6 mo f/u [facility] Comment on above: 6 mo f/u Start: 03-05-2025 End: 06-04-2025 CBC panel - Blood by Automated count COMPLETE BLOOD COUNT Lab Routine Hypothyroidism, unspecified type Expected: 03/05/2025 (Approximate), Expires: 06/04/2025 [facility] Comment on above: Expected: 03/05/2025 (Approximate), Expires: 06/04/2025 Start: 03-05-2025 End: 06-04-2025 Comprehensive metabolic 2000 panel - Serum or Plasma COMPREHENSIVE METABOLIC PANEL Lab Routine Hyperlipidemia, unspecified hyperlipidemia type Elevated glucose Expected: 03/05/2025 (Approximate), Expires: 06/04/2025 [facility] Work Phone: Comment on above: Expected: 03/05/2025 (Approximate), Expires: 06/04/2025 Start: 03-05-2025 End: 06-04-2025 Hemoglobin A1c in Blood HEMOGLOBIN A1C Lab Routine Elevated glucose Expected: 03/05/2025 (Approximate), Expires: 06/04/2025 [facility] Comment on above: Expected: 03/05/2025 (Approximate), Expires: 06/04/2025 Start: 03-05-2025 End: 06-04-2025 Lipid 1996 panel - Serum or Plasma LIPID PANEL BASIC Lab Routine Hyperlipidemia, unspecified hyperlipidemia type Elevated glucose Expected: 03/05/2025 (Approximate), Expires: 06/04/2025 [facility] Comment on above: Expected: 03/05/2025 (Approximate), Expires: 06/04/2025 Start: 03-05-2025 End: 06-04-2025 Thyrotropin [Units/volume] in Serum or Plasma THYROID STIMULATING HORMONE Lab Routine Hypothyroidism, unspecified type Expected: 03/05/2025 (Approximate), Expires: 06/04/2025 [facility] Comment on above: Expected: 03/05/2025 (Approximate), Expires: 06/04/2025 Start: 03-03-2025 Influenza vaccination Influenza Vacc ine (#1) [facility] Start: 02-25-2025 Annual PCP Team Dump Grader danielle Disease Visit Annual PCP Team Chronic Disease Visit [facility] Start: 02-25-2025 Anxiety Screening Anxiety Screening [facility] Start: 02-25-2025 Depression Screening Depression Scre ening [facility] Start: 02-14-2025 DIABETES SCREEN DIABETES SCREEN [facility] Start: 02-10-2025 End: 02-10-2025 Patient encounter procedure 02/10/2025 10:00 AM EDT Office Visit Orthopaedics [address] [place] [address] Belinda Jason PA-C [address] [place] [address] shandra knee Orthopaedics Comment on above: shandra knee Start: 12-03-2024 End: 12-03-2024 Patient encounter procedure 12/03/2024 3:40 PM EDT Office Visit Family [facility] [place] [address], [place] [id number] Pepe Reyes MD [address] [place] [address] Bile reflux gasteritis ( currently sees Dr. Woodall ) Family [facility] Comment on above: Bile reflux gasterit is ( currently sees Dr. Woodall ) Start: 12-02-2024 End: 12-02-2024 Patient encounter procedure Cat Scan Comment on above: Tobacco use current [Z72.0] Start: 11-19-2024 Screening for malign ant neoplasm of lung Lung Cancer Screening [facility] Start: 09-18-2024 Annual PCP Team Dump Grader danilele Disease Visit Annual PCP Team Chronic Disease Visit [facility] Start: 09-17-2024 Colonoscopy flx dx w/collj spec when pfrmd DIAGNOSTIC COLONOSCOPY [facility] Start: 09-17-2024 Egd transoral biopsy single/multiple EGD BIOPSY SINGLE/MULTIPLE [facility] Start: 09-17-2024 Patient discharge [facility] Start: 09-02-2024 End: 09-02-2024 Patient encounter procedure 09/02/2024 12:40 PM EST Office Visit [facility] [address] [place], [place] [id number] Pepe Reyes MD [address] [facility] [place] [address] 6 mo f/u Family [facility] Comment on above: 6 mo f/u Start: 08-28-2024 Annual PCP Team Dump Grader danielle Disease Visit Annual PCP Team Chronic Disease Visit [facility] Start: 08-28-2024 End: 11-27-2024 Comprehensive metabolic 2000 panel - Serum or Plasma COMPREHENSIVE METABOLIC PANEL Lab Routine Hyperlipidemia, unspecified hyperlipidemia type Elevated glucose Expected: 08/28/2024, Expires: 11/27/2024 [facility] Work Phone: Comment on above: Expected: 08/28/2024 , Expires: 11/27/2024 Start: 08-28-2024 End: 11-27-2024 Hemoglobin A1c in Blood HEMOGLOBIN A1C Lab Routine Elevated glucose Expected: 08/28/2024, Expires: 11/27/2024 [facility] Comment on above: Expected: 08/28/2024 , Expires: 11/27/2024 Start: 08-28-2024 End: 11-27-2024 Lipid 1996 panel - Serum or Plasma LIPID PANEL BASIC Lab Routine Hyperlipidemia, unspecified hyperlipidemia type Elevated glucose Expected: 08/28/2024, Expires: 11/27/2024 [facility] Comment on above: Expected: 08/28/2024 , Expires: 11/27/2024 Start: 08-28-2024 End: 11-27-2024 Thyrotropin [Units/volume] in Serum or Plasma THYROID STIMULATING HORMONE Lab Routine Hypothyroidism, unspecified type Expected: 08/28/2024, Expires: 11/27/2024 [facility] Comment on above: Expected: 08/28/2024 , Expires: 11/27/2024 Start: 08-18-2024 Annual PCP Team Dump Grader danielle Disease Visit Annual PCP Team Chronic Disease Visit [facility] Start: 08-09-2024 DIABETES SCREEN DIABETES SCREEN [facility] Start: 07-03-2024 Advance Directive Discussion Advance Directive Discussion [facility] Start: 07-03-2024 Medicare Advantage Annual Wellness Visit Medicare Advantage Annual Wellness Visit [facility] Start: 06-10-2024 End: 06-10-2024 Patient encounter procedure 06/10/2024 2:00 PM EST Office Visit [facility] [address] [place] [address] Pepe Reyes MD [address] [facility] [place] [address] ER Follow Up [facility] Comment on above: ER Follow Up Start: 05-26-2024 [facility] Start: 05-26-2024 Enteric precautions [facility] Start: 05-13-2024 End: 05-13-2024 Patient encounter procedure 05/13/2024 3:00 PM EST Office Visit Orthopaedics [address] [place] [address] Belinda Jason PA-C [address] [place] [address] left knee cortisone injection Orthopaedics Comment on above: left knee cortisone injection Start: 04-05-2024 End: 04-05-2024 Patient encounter procedure 04/05/2024 12:30 PM EDT Immunization [facility] [address] [place] [address] [facility], Immunization Clinic Nurse [address] [facility] [address] flu and covid [facility] Comment on above: flu and covid Start: 03-16-2024 Mammography Mammogram Screening [facility] Start: 03-16-2024 Screening for malign ant neoplasm of breast Mammogram Screening [facility] Start: 03-03-2024 Covid-19 Vaccine ( season) Covid-19 Vaccine ( season) [facility] Start: 03-03-2024 Covid-19 Vaccine ( season) Covid-19 Vaccine ( season) [facility] Start: 03-03-2024 Influenza vaccination Influenza Vacc ine (#1) [facility] Start: 02-28-2024 ANNUAL PCP TEAM AUTO MECHANICS TEACHER DANIELLE DISEASE VISIT ANNUAL PCP TEAM CHRONIC DISEASE VISIT [facility] Start: 02-26-2024 End: 02-26-2024 Patient encounter procedure 02/26/2024 1:00 PM EDT Office Visit [facility] [address] [place] [address] Pepe Reyes MD [address] [place] [address] 6 mo f/u [facility] Comment on above: 6 mo f/u Start: 11-16-2023 End: 12-15-2023 CT LUNG SCREEN WO IVCON CT LUNG SCREEN WO IVCON Radiology Routine Encounter for screening for lung cancer Tobacco use current Expected: 11/16/2023, Expires: 12/15/2023 [facility] Work Phone: Comment on above: Expected: 11/16/2023 , Expires: 12/15/2023 Start: 11-15-2023 Influenza vaccination LUNG CANCER SC REENING [facility] Start: 11-15-2023 Screening for malign ant neoplasm of lung Lung Cancer Screening [facility] Start: 11-01-2023 ANNUAL PCP TEAM AUTO MECHANICS TEACHER DANIELLE DISEASE VISIT ANNUAL PCP TEAM CHRONIC DISEASE VISIT [facility] Start: 10-21-2023 ANNUAL PCP TEAM AUTO MECHANICS TEACHER DANIELLE DISEASE VISIT ANNUAL PCP TEAM CHRONIC DISEASE VISIT [facility] Start: 09-06-2023 ANNUAL PCP TEAM AUTO MECHANICS TEACHER DANIELLE DISEASE VISIT ANNUAL PCP TEAM CHRONIC DISEASE VISIT [facility] Start: 08-31-2023 Covid-19 Vaccine ( season) Covid-19 Vaccine () [facility] Start: 08-30-2023 End: 10-30-2023 Comprehensive metabolic 2000 panel - Serum or Plasma COMP METABOLIC PANEL Lab Routine Hyperlipidemia, unspecified hyperlipidemia type Expected: 08/30/2023 (Approximate), Expires: 10/30/2023 [facility] Work Phone: Comment on above: Expected: 08/30/2023 (Approximate), Expires: 10/30/2023 Start: 08-30-2023 End: 10-30-2023 Lipid 1996 panel - Serum or Plasma LIPID PANEL BASIC Lab Routine Hyperlipidemia, unspecified hyperlipidemia type Expected: 08/30/2023 (Approximate), Expires: 10/30/2023 [facility] Work Phone: Comment on above: Expected: 08/30/2023 (Approximate), Expires: 10/30/2023 Start: 08-30-2023 End: 10-30-2023 Thyrotropin [Units/volume] in Serum or Plasma TSH BLD Lab Routine Hypothyroidism, unspecified type Expected: 08/30/2023 (Approximate), Expires: 10/30/2023 [facility] Work Phone: Comment on above: Expected: 08/30/2023 (Approximate), Expires: 10/30/2023 Start: 08-29-2023 ANNUAL PCP TEAM AUTO MECHANICS TEACHER DANIELLE DISEASE VISIT ANNUAL PCP TEAM CHRONIC DISEASE VISIT [facility] Start: 08-18-2023 End: 11-17-2023 Magnesium [Mass/volume] in Serum or Plasma MAGNESIUM BLD Lab Routine Palpitations Expected: 08/18/2023, Expires: 11/17/2023 [facility] Work Phone: Comment on above: Expected: 08/18/2023 , Expires: 11/17/2023 Start: 07-18-2023 ANNUAL PCP TEAM AUTO MECHANICS TEACHER DANIELLE DISEASE VISIT ANNUAL PCP TEAM CHRONIC DISEASE VISIT [facility] Start: 07-12-2023 ANNUAL PCP TEAM AUTO MECHANICS TEACHER DANIELLE DISEASE VISIT ANNUAL PCP TEAM CHRONIC DISEASE VISIT [facility] Start: 07-03-2023 Advance Directive Discussion Advance Directive Discussion [facility] Start: 07-03-2023 Behavioral Health Screening Behavioral Health Screening [facility] Start: 07-03-2023 Depression Assessment Depression Ass essment [facility] Start: 03-22-2023 End: 04-05-2023 COVID & INFLUENZA A/B & RSV NAAT, ROUTINE [facility] Work Phone: Comment on above: Expected: 03/22/2023 , Expires: 04/05/2023 Start: 03-03-2023 Covid-19 Vaccine () Covid-19 Vaccine () [facility] Start: 03-03-2023 Influenza vaccination C [facility] Start: 02-26-2023 End: 04-28-2023 Comprehensive metabolic 2000 panel - Serum or Plasma COMP METABOLIC PANEL Lab Routine Hyperlipidemia, unspecified hyperlipidemia type Elevated glucose Expected: 02/26/2023 (Approximate), Expires: 04/28/2023 [facility] Work Phone: Comment on above: Expected: 02/26/2023 (Approximate), Expires: 04/28/2023 Start: 02-26-2023 End: 04-28-2023 Hemoglobin A1c in Blood HGB A1C Lab Routine Elevated glucose Expected: 02/26/2023 (Approximate), Expires: 04/28/2023 [facility] Work Phone: Comment on above: Expected: 02/26/2023 (Approximate), Expires: 04/28/2023 Start: 02-26-2023 End: 04-28-2023 Lipid 1996 panel - Serum or Plasma LIPID PANEL BASIC Lab Routine Hyperlipidemia, unspecified hyperlipidemia type Expected: 02/26/2023 (Approximate), Expires: 04/28/2023 [facility] Work Phone: Comment on above: Expected: 02/26/2023 (Approximate), Expires: 04/28/2023 Start: 02-26-2023 End: 04-28-2023 Thyrotropin [Units/volume] in Serum or Plasma TSH BLD Lab Routine Hypothyroidism, unspecified type Expected: 02/26/2023 (Approximate), Expires: 04/28/2023 [facility] Work Phone: Comment on above: Expected: 02/26/2023 (Approximate), Expires: 04/28/2023 Start: 02-21-2023 Adult depression screening assessment DEPRESSION SCREENING [facility] Start: 02-21-2023 ANNUAL PCP TEAM AUTO MECHANICS TEACHER DANIELLE DISEASE VISIT ANNUAL PCP TEAM CHRONIC DISEASE VISIT [facility] Start: 01-11-2023 Mammography MAMMOGRAM [facility] Start: 11-10-2022 Mammography MAMMOGRAM [facility] Start: 10-11-2022 ANNUAL PCP TEAM AUTO MECHANICS TEACHER DANIELLE DISEASE VISIT ANNUAL PCP TEAM CHRONIC DISEASE VISIT [facility] Start: 09-05-2022 End: 11-05-2022 CBC W Auto Differential panel - Blood [facility] Work Phone: Comment on above: Expected: 09/05/2022 , Expires: 11/05/2022 Start: 09-05-2022 End: 11-05-2022 GRAYSON SILVERMAN PANEL [facility] Work Phone: Comment on above: Expected: 09/05/2022 , Expires: 11/05/2022 Start: 08-24-2022 End: 10-24-2022 Comprehensive metabolic 2000 panel - Serum or Plasma COMP METABOLIC PANEL Lab Routine Hyperlipidemia, unspecified hyperlipidemia type Elevated glucose Expected: 08/24/2022 (Approximate), Expires: 10/24/2022 [facility] Work Phone: Comment on above: Expected: 08/24/2022 (Approximate), Expires: 10/24/2022 Start: 08-24-2022 End: 10-24-2022 Hemoglobin A1c in Blood HGB A1C Lab Routine Elevated glucose Expected: 08/24/2022 (Approximate), Expires: 10/24/2022 [facility] Work Phone: Comment on above: Expected: 08/24/2022 (Approximate), Expires: 10/24/2022 Start: 08-24-2022 End: 10-24-2022 Lipid 1996 panel - Serum or Plasma LIPID PANEL BASIC Lab Routine Hyperlipidemia, unspecified hyperlipidemia type Expected: 08/24/2022 (Approximate), Expires: 10/24/2022 [facility] Work Phone: Comment on above: Expected: 08/24/2022 (Approximate), Expires: 10/24/2022 Start: 08-24-2022 End: 10-24-2022 Thyrotropin [Units/volume] in Serum or Plasma TSH BLD Lab Routine Hypothyroidism, unspecified type Expected: 08/24/2022 (Approximate), Expires: 10/24/2022 [facility] Work Phone: Comment on above: Expected: 08/24/2022 (Approximate), Expires: 10/24/2022 Start: 08-10-2022 COVID-19 VACCINE (5 - Pfizer series) COVID-19 VACCINE (5 - Pfizer series) [facility] Start: 07-03-2022 ADVANCE DIRECTIVE DISCUSSION ADVANCE DIRECTIVE DISCUSSION [facility] Start: 07-03-2022 DEPRESSION ASSESSMENT DEPRESSION ASS ESSMENT [facility] Start: 03-03-2022 Influenza vaccination INFLUENZA (#1) [facility] Start: 10-25-2021 End: 11-10-2022 SPIROMETRY - BASELINE AND POST DILATOR SPIROMETRY - BASELINE AND POST DILATOR PFT Routine Cough Expected: 10/25/2021 (Approximate), Expires: 11/10/2022 [facility] Work Phone: Comment on above: Expected: 10/25/2021 (Approximate), Expires: 11/10/2022 Start: 09-04-2021 Mammography MAMMOGRAM [facility] Start: 08-22-2021 COVID-19 VACCINE (4 - Booster for Pfizer series) COVID-19 VACCINE (4 - Booster for Pfizer series) [facility] Start: 07-03-2021 ADVANCE DIRECTIVE DISCUSSION ADVANCE DIRECTIVE DISCUSSION [facility] Start: 07-03-2021 [facility]PRESSION [facility] Start: 06-16-2021 COVID-19 VACCINE (4 - Booster for Pfizer series) COVID-19 VACCINE (4 - Booster for Pfizer series) [facility] Start: 05-29-2018 Adult depression screening assessment DEPRESSION SCREENING [facility] Start: 08-08-2012 SHINGRIX VACCINE (2 of 3) SHINGRIX VACCINE (2 of 3) [facility] Start: 2008 RSV Vaccine (1 - 1-d ose 60+ series) RSV Vaccine (1 - 1-dose 60+ series) [facility] Start: 1998 Influenza vaccination LUNG CANCER SC VAMSHINING [facility] Start: 1993 COLOGUARD (FIT-DNA) COLOGUARD (FIT-D NA) [facility] Start: [address] COLONOGRAPHY [facility] Start: 1993 FECAL OCCULT BLOOD FECAL OCCULT BLOO D [facility] Start: 1993 Screening for malign ant neoplasm of colon [facility] Start: 1993 SIGMOIDOSCOPY SIGMOIDOSCOPY [facility] Chlamydia trachomatis+Neisseria gonorrhoeae DNA [Presence] in Unspecified specimen by BESS with probe detection GONORRHEA/CHLAMYDIA NAAT Lab Routine Vaginal discomfort Ordered: 04/11/2023 [facility] Work Phone: Comment on above: Ordered: 04/11/2023 COVID & INFLUENZA A/ B & RSV NAAT, ROUTINE COVID & INFLUENZA A/B & RSV NAAT, ROUTINE Microbiology Routine Sinus congestion 08/18/2023 9:52 AM EST [facility] Work Phone: COVID & INFLUENZA A/ B & RSV PCR, ROUTINE COVID & INFLUENZA A/B & RSV PCR, ROUTINE Microbiology Routine Sinobronchitis Body aches Fever and chills Ordered: 03/15/2024 [facility] Work Phone: Comment on above: Ordered: 03/15/2024 End: 12-19-2024 CT Chest for screening WO contrast CT LUNG SCREEN WO IVCON Radiology Routine Tobacco use current 1 Occurrences starting 11/20/2023 until 12/19/2024 [facility] Work Phone: Comment on above: 1 Occurrences starti ng 11/20/2023 until 12/19/2024 End: 01-31-2026 CT Chest for screening WO contrast CT LUNG SCREEN WO IVCON Radiology Routine Cigarette smoker 1 Occurrences starting 01/01/2025 until 01/31/2026 [facility] Work Phone: Comment on above: 1 Occurrences starti ng 01/01/2025 until 01/31/2026 End: 12-01-2023 CT LUNG SCREEN WO IVCON CT LUNG SCREEN WO IVCON Radiology Routine Encounter for screening for lung cancer Tobacco use current 1 Occurrences starting 11/01/2022 until 12/01/2023 [facility] Work Phone: Comment on above: 1 Occurrences starti ng 11/01/2022 until 12/01/2023 End: 01-20-2023 Diagnostic mammography computer-aided detcj bi [facility]AT Radiology Routine Abnormal mammogram 1 Occurrences starting 12/21/2021 until 01/20/2023 [facility] Work Phone: Comment on above: 1 Occurrences starti ng 12/21/2021 until 01/20/2023 End: 12-10-2022 Diagnostic mammography computer-aided detcj uni [facility] LT Radiology Routine Abnormal mammogram 1 Occurrences starting 11/10/2021 until 12/10/2022 [facility] Work Phone: Comment on above: 1 Occurrences starti ng 11/10/2021 until 12/10/2022 ECG COMPLETE [facility] Work Phone: Comment on above: Ordered: 08/18/2023 Influenza virus A an d B RNA and SARS-CoV-2 (COVID-19) N gene panel - Respiratory specimen by BESS with probe detection COVID WITH FLUA+B, ROUTINE Microbiology Routine Sinus congestion Ordered: 06/21/2022 [facility] Work Phone: Comment on above: Ordered: 06/21/2022 End: 03-28-2024 MOISE SCREENING [facility] SCREENING Radiology Routine Encounter for screening mammogram for malignant neoplasm of breast 1 Occurrences starting 02/27/2023 until 03/28/2024 [facility] Work Phone: Comment on above: 1 Occurrences starti ng 02/27/2023 until 03/28/2024 Patient Education ED Abdominal P ain Unkn Cause Fem ED Gastroenteritis, Noninfectious [facility] Work Phone: Patient referral [facility] Work Phone: ROUTINE FLU A/B + RSV ROUTINE FL U A/B + RSV Lab Routine Rhinosinusitis URI, acute 03/22/2023 9:22 AM EDT [facility] Work Phone: SARS-CoV-2 (COVID-19 ) RNA [Presence] in Respiratory specimen by BESS with probe detection 2019 CORONAVIRUS Microbiology Routine Fatigue, unspecified type Sinus congestion 09/05/2022 10:55 AM EST [facility] Work Phone: SARS-CoV-2 (COVID-19 ) RNA [Presence] in Respiratory specimen by BESS with probe detection COVID NAAT, UPPER RESPIRATORY, ROUTINE Microbiology Routine Rhinosinusitis URI, acute 03/22/2023 9:22 AM EDT [facility] Work Phone: End: 11-12-2022 Screening mammography bi 2-view breast inc cad MOISE SCREENING Radiology Routine Encounter for screening mammogram for breast cancer 1 Occurrences starting 10/13/2021 until 11/12/2022 [facility] Work Phone: Comment on above: 1 Occurrences starti ng 10/13/2021 until 11/12/2022 SPIROMETRY - BASELIN E AND POST DILATOR SPIROMETRY - BASELINE AND POST DILATOR PFT Routine Cough 11/03/2021 10:15 AM EDT [facility] Work Phone: End: 12-10-2022 Us breast uni real time with image limited US BREAST LTD LT Radiology Routine Abnormal mammogram 1 Occurrences starting 11/10/2021 until 12/10/2022 [facility] Work Phone: Comment on above: 1 Occurrences starti ng 11/10/2021 until 12/10/2022 End: 05-23-2025 XR Knee - left 4 Views XR KNEE GENERAL 4V AP BOTH/PA BOTH/LAT/MERC LEFT Radiology Routine Left knee pain, unspecified chronicity 1 Occurrences starting 04/23/2024 until 05/23/2025 [facility] Work Phone: Comment on above: 1 Occurrences starti ng 04/23/2024 until 05/23/2025 XR Knee - left 4 Views XR KNEE G ENERAL 4V AP BOTH/PA BOTH/LAT/MERC LEFT Radiology Routine Left knee pain, unspecified chronicity 05/13/2024 3:24 PM EST [facility] Work Phone: XR Shoulder - right 2 Views XR SHOULDER [id number] AP/TRUE AP RIGHT Radiology Routine Shoulder impingement 02/10/2025 10:34 AM EDT [facility] Work Phone: End: 03-12-2026 XR Shoulder - right 2 Views XR SHOULDER [id number] AP/TRUE AP RIGHT Radiology Routine 1 Occurrences starting 02/10/2025 until 03/12/2026 [facility] Work Phone: Comment on above: 1 Occurrences starti ng 02/10/2025 until 03/12/2026 [facility] Immunizations Immunization Date Immunization Notes Care Provider Radha alegria 03-18-2025 influenza, high dose seasonal, preservative-free Pepe Reyes MD Work Phone: [facility] 04-06-2024 influenza (HD-IIV4) vaccine, age 65+ yr, high dose, quadrivalent, PF (FLUZONE HIGH-DOSE) Pepe Reyes MD Work Phone: [facility] 04-06-2024 influenza virus vaccine, unspecified formulation Marielos Armas CARDIOPULMONARY SPECIALIST.CANCER REGISTRAR Work Phone: [facility] 03-25-2024 respiratory syncytia l virus (RSV) vaccine, adjuvanted (AREXVY) Pepe Reyes MD Work Phone: [facility] 05-01-2023 COVID-19 vaccine, ag e 12+ yr, season (PFIZER-BIONTECH) Rob Cardenas CARDIOPULMONARY SPECIALIST.CANCER REGISTRAR Work Phone: [facility] 04-01-2023 influenza (HD-IIV4) vaccine, age 65+ yr, high dose, quadrivalent, PF (FLUZONE HIGH-DOSE) Immunization [facility] Work Phone: [facility] 04-01-2023 influenza virus vaccine, unspecified formulation Pepe Reyes MD Work Phone: [facility] 04-09-2022 COVID-19 booster vaccine, age 12+ yr, bivalent (PFIZER-BIONTECH) Kiley Chang CARDIOPULMONARY SPECIALIST.CANCER REGISTRAR Work Phone: [facility] 03-25-2022 influenza, high-dose , quadrivalent vaccine (FLUZONE HIGH DOSE QUADRIVALENT) Mi Nurse Work Phone: [facility] Work Phone: 03-25-2022 influenza virus vaccine, unspecified formulation Mammography Coordinator [facility] 03-26-2021 influenza, high-dose , quadrivalent vaccine (FLUZONE HIGH DOSE QUADRIVALENT) Rob Cardenas CARDIOPULMONARY SPECIALIST.CANCER REGISTRAR Work Phone: [facility] Work Phone: 04-01-2020 influenza, high-dose , quadrivalent vaccine (FLUZONE HIGH DOSE QUADRIVALENT) Rob Ronald CARDIOPULMONARY SPECIALIST.CANCER REGISTRAR Work Phone: [facility] 12-14-2019 tetanus toxoid, redu josse diphtheria toxoid, and acellular pertussis vaccine, adsorbed Rob Ronald CARDIOPULMONARY SPECIALIST.CANCER REGISTRAR Work Phone: [facility] 04-27-2019 influenza, high dose seasonal, preservative-free Rob Ronald CARDIOPULMONARY SPECIALIST.CANCER REGISTRAR Work Phone: [facility] 03-31-2018 influenza, high dose seasonal, preservative-free Rob Ronald CARDIOPULMONARY SPECIALIST.CANCER REGISTRAR Work Phone: [facility] 03-24-2017 influenza, high dose seasonal, preservative-free Rob Ronald CARDIOPULMONARY SPECIALIST.CANCER REGISTRAR Work Phone: [facility] Work Phone: 04-08-2016 influenza, high dose seasonal, preservative-free Rob Ronald CARDIOPULMONARY SPECIALIST.CANCER REGISTRAR Work Phone: [facility] 07-22-2015 pneumococcal conjuga te vaccine, 13 valent Rob Ronald CARDIOPULMONARY SPECIALIST.CANCER REGISTRAR Work Phone: [facility] 04-02-2015 influenza, high dose seasonal, preservative-free Rob Ronald CARDIOPULMONARY SPECIALIST.CANCER REGISTRAR Work Phone: [facility] Work Phone: 04-16-2014 influenza, seasonal, injectable Rob Ronald CARDIOPULMONARY SPECIALIST.CANCER REGISTRAR Work Phone: [facility] Work Phone: 12-17-2013 pneumococcal polysaccharide vaccine, 23 valent Rob Ronald CARDIOPULMONARY SPECIALIST.CANCER REGISTRAR Work Phone: [facility] 04-13-2013 influenza virus vaccine, unspecified formulation Rob Ronald CARDIOPULMONARY SPECIALIST.CANCER REGISTRAR Work Phone: [facility] Work Phone: 12-04-2012 tetanus toxoid, redu josse diphtheria toxoid, and acellular pertussis vaccine, adsorbed Rob Ronald CARDIOPULMONARY SPECIALIST.CANCER REGISTRAR Work Phone: [facility] Work Phone: 06-13-2012 zoster vaccine, live Rob C ecil CARDIOPULMONARY SPECIALIST.CANCER REGISTRAR Work Phone: [facility] Work Phone: 03-24-2012 influenza virus vaccine, unspecified formulation Rob Ronald CARDIOPULMONARY SPECIALIST.CANCER REGISTRAR Work Phone: [facility] 04-02-2011 influenza virus vaccine, unspecified formulation Rob Ronald CARDIOPULMONARY SPECIALIST.[facility] Work Phone: [facility] 04-17-2010 influenza virus vaccine, unspecified formulation Rob Ronald CARDIOPULMONARY SPECIALIST.[facility] Work Phone: [facility] Work Phone: 03-28-2009 influenza virus vaccine, unspecified formulation Rob Ronald CARDIOPULMONARY SPECIALIST.CANCER REGISTRAR Work Phone: [facility] Work Phone: 05-07-2008 influenza virus vaccine, unspecified formulation Rob Ronald CARDIOPULMONARY SPECIALIST.[facility] Work Phone: [facility] Work Phone: 05-08-2007 influenza virus vaccine, unspecified formulation Rob Ronald CARDIOPULMONARY SPECIALIST.[facility] Work Phone: [facility] Work Phone: 05-15-2006 influenza virus vaccine, unspecified formulation Rob Ronald CARDIOPULMONARY SPECIALIST.CANCER REGISTRAR Work Phone: [facility] Work Phone: 05-18-2005 influenza virus vaccine, unspecified formulation Rob Ronald CARDIOPULMONARY SPECIALIST.[facility] Work Phone: [facility] Work Phone: 01-04-2002 tetanus and diphther ia toxoids, adsorbed, preservative free, for adult use (2 Lf of tetanus toxoid and 2 Lf of diphtheria toxoid) Rob Ronald CARDIOPULMONARY SPECIALIST.CANCER REGISTRAR Work Phone: [facility] Work Phone: Payers Date Payer Category Payer Self-pay 2021 Medicare HUMANA MEDICARE HUMANA GOLD PLUS [id number] 2021-Present [phone] [address] [address] [place] [address] O [id number] 2021 Medicare (Managed Care) HUMANA G OLD PLUS [id number] 2021 Private Health Insurance [id number] 2019 Medicare [id number] Medicare [facility]IC[facility] PPO [id number] Unknown [id number] Unknown [id number] Unknown [id number] Unknown [id number] Unknown [id number] Unknown [id number] Unknown [id number] Unknown [id number] Unknown [id number] Unknown [id number] Unknown [id number] Unknown [id number] Unknown [id number] Social History Date Type Detail Facility Start: 04-09-2012 End: 02-26-2024 Tobacco smoking status DEIS Smokes tobacco daily [facility] History of tobacco use Cigarette Smoker [facility] Work Phone: Start: 10-11-2021 End: 03-18-2025 Alcohol intake Current drinker of alcohol (finding) [facility] Start: 1950 Sex Assigned At Female [facility] Start: 07-23-2020 End: 03-22-2022 Exposure to SARS-CoV-2 (event) Not sure [facility] Work Phone: Start: 11-29-2021 End: 12-09-2021 Exposure to SARS-CoV-2 (event) Unable to assess [facility] Work Phone: Start: 04-09-2012 End: 11-14-2022 Cigarettes smoked current (pack per day) - Reported 0.5 [facility] Work Phone: Start: 04-09-2012 End: 02-26-2024 Tobacco use and exposure Smokeless tobacco non-user [facility] Work Phone: Start: 11-14-2022 End: 02-27-2023 Tobacco use panel [facility] Work Phone: Start: 06-03-2012 Adult Depression Screening Assessment 0 [facility] Work Phone: Start: 04-22-2019 Gender identity Identifies as female gender (finding) [facility] Start: 09-17-2024 Sex Female (finding) [facility] NEGATED: Highlighted row Not [facility] Goals Date Patient Goal Desired Activity /State Functional Status Date Assessment Result Facility 01-19-2015 Are you deaf, or do you have serious difficulty hearing No 01/19/2015 2:18 PM EDT Penelope Chan LPN No [facility] 01-19-2015 Are you blind, or do you have serious difficulty seeing, even when wearing glasses No 01/19/2015 2:18 PM EDT Penelope Chan LPN No [facility] 01-19-2015 Do you have serious difficulty walking or climbing stairs No 01/19/2015 2:18 PM EDT Penelope Chan LPN No [facility] 01-19-2015 Do you have difficul ty dressing or bathing No 01/19/2015 2:18 PM EDT Penelope Chan LPN No [facility] 01-19-2015 Because of a physica l, mental, or emotional condition, do you have difficulty doing errands alone such as visiting a physician's office or shopping No 01/19/2015 2:18 PM EDT Penelope Chan LPN No [facility] Mental Status Date Assessment Result Facility 09-17-2024 Cognitive function Level Of Cons ciousness Follows Commands;Drowsy [facility] Work Phone: 09-17-2024 Cognitive function Arousable To Voice/Nam e [facility] Work Phone: 08-15-2024 Cognitive function Awake;Alert;Appropriat e [facility] Work Phone: 01-19-2015 Because of a physica l, mental, or emotional condition, do you have serious difficulty concentrating, remembering, or making decisions No 01/19/2015 2:18 PM EDT Penelope Chan LPN No [facility] Clinical Notes 03-11-2008 to 05-14-2025 Pepe Reyes MD - 03/18/2025 3:00 PM Rochelle Arevalo MD - 02/15/2025 9:14 AM EDTPatient Belinda Huynh PA-C - 02/10/2025 11:11 AM EDT Note Date & Type Note Facility 05-14-2025 Note HNO ID: [id number] Author: NICHOLAS COE RT(R) Service: ? Author Type: Conditioning Yard Supervisor Type: Progress Notes Filed: 05/14/2025 13:21 Note Text: Radiology Service Progress Note PATIENT NAME: Roman Kuhn DATE OF SERVICE: May 14, 2025 TIME: 1:20 PM PATIENT IDENTITY VERIFICATION COMPLETED USING TWO (2) IDENTIFIERS: Name and Date of confirmed by patient verbally. FALL SCREENING: Has the patient had 2 falls in the last year or 1 fall with injury or currently using an Ambulatory Assistive Device (Walker, Cane, Wheelchair, Crutches, etc.)? No PATIENT GENDER DATA: Assigned female at . status: : No status: NO. PATIENT RELEVANT IMPLANT DATA REVIEWED: Not Applicable PATIENT PRESENTS WITH AN IMPLANTABLE OR ATTACHED REGISTERED NURSE AMBULATORY: No RADIOLOGY DEPARTMENT: General X-ray: Exam(s) Completed: Abdomen X-Ray: Abdomen PERIPHERAL IV DATA: Not applicable SIGNED BY: RT Stanley(R) May 14, 2025 1:20 PM [facility] 05-14-2025 Note HNO ID: [id number] Author: KEV CAMPOS MD Service: ? Author Type: Physician Type: Progress Notes Filed: 05/14/2025 12:43 Note Text: Chief Complaint Patient presents with: ER F/U: [facility] ER F/U 05/09 seen for abd pain/bloating. Hx of IBS and GERD. Given Sucralfate. Still not feeling well. Recording using [employer] software for draft documentation of the visit was discussed with the patient/authorized paper sales representative; all questions welcomed and answered. Patient/authorized paper sales representative agreed to proceed HPI Roman Kuhn is a 74 year old female who presents here today for ER Follow Up. oRn Kuhn is a 74-year-old female with a history of IBS and GERD, presenting for follow-up after a recent ED visit for abdominal discomfort and bloating. IBS and GERD: - Recent ED visit on May 09 for abdominal discomfort and bloating. - Reports frequent constipation, worsening acid reflux, and bloating. - Describes a sensation of pressure in the abdomen, prompting the ED visit. - ED treatment included a GI cocktail and initiation of Carafate TID for one week. - Followed up with Dr. Woodall's office via phone; next appointment scheduled for June 19. - Currently taking Carafate TID, pantoprazole BID, and Pepcid 40 mg at bedtime. - Ron reports improvement in burning sensation in the chest and abdomen with Carafate. - Experiencing difficulty with eructation and flatulence; describes stools as soft serve, squirting out. - Denies hematochezia, melena, or emesis. - Regular bowel movements in the morning, 3-4 times daily, described as loose and small. - No abdominal pain reported, only pressure. - Recent COVID-19 vaccination noted; Ron reports exacerbation of symptoms post-vaccination. - Inquires about the use of Rolaids for nausea. - Denies fevers, chills, cough, wheezing, chest pain, or palpitations. Past medical history, appointments, medications, allergies reviewed. Previous Medical History PAST MEDICAL HISTORY Diagnosis Date Abdominal pain, epigastric Allergic rhinitis, cause unspecified Allergic rhinitis Bile reflux gastritis Esophageal reflux Bile reflux gastritis IBS (irritable bowel syndrome) constipation primarily Other and unspecified hyperlipidemia Unspecified hypothyroidism Previous Surgical History PAST SURGICAL HISTORY Procedure Laterality Date ABDOMINAL SURGERY HX BIOPSY BREAST OPEN INCISIONAL 08/14/2017 left stereotactic breast biopsy w/clip placement [facility] COLONOSCOPY N/A 09/17/2024 COLONOSCOPY FLX DX W/COLLJ SPEC WHEN PFRMD 12/18/2003 Colonoscopy COLONOSCOPY FLX DX W/COLLJ SPEC WHEN PFRMD 03/11/2008 Colonoscopy COLONOSCOPY FLX DX W/COLLJ SPEC WHEN PFRMD 07/19/2012 Colonoscopy COLONOSCOPY FLX DX W/COLLJ SPEC WHEN PFRMD 11/13/2018 Colonoscopy COSMETIC ASSESSMENT EGD 09/01/2020 EGD W/O [facility] SPEC VARICIES INJ N/A 09/17/2024 ESOPHAGOGASTRODUODENOSCOPY TRANSORAL DIAGNOSTIC 03/12/2012 EGD ESOPHAGOGASTRODUODENOSCOPY TRANSORAL DIAGNOSTIC 11/13/2018 EGD EYE SURGERY HX cataracts with lens implants LAPS SURG CHOLECYSTECTOMY W/CHOLANGIOGRAPHY 04/17/2012 Normal IOC PAST SURGICAL HISTORY OF hemmorhoidectomy PAST SURGICAL HISTORY OF age 27 partial hysterectomy PAST SURGICAL HISTORY OF 1998 benign breast bx PAST SURGICAL HISTORY OF 07/2002 lasik eye surgery PAST SURGICAL HISTORY OF 07/2006 recheck and enhancement on eye surgery PAST SURGICAL HISTORY OF Bilateral 2018 OD - 08/21, OS - 09/[address] Stock. Cataract implants RHINP PRIM LATANDALAR CRTLGSAND/ELVTN NASAL TI Rhinoplasty x 2 VAGINAL HYSTERECTOMY Family History FAMILY HISTORY Problem Relation Age of Onset Heart Mother valve, age 81 Prostate Cancer Father Coronary Artery Disease Father late in life; enlarged heart; smoked Colon Cancer Maternal Grandfather Patient Allergies ALLERGIES Allergen Reactions Ceclor [Cefaclor] ER for anaphylaxis Avelox [Moxifloxaci* Intolerance Bactrim [Sulfametho* Unknown Insides were raging Biaxin [Clarithromy* Celexa [Citalopram * Unknown Cipro [Ciprofloxaci* GI Upset Erythromycin GI Upset GI upset Levsinex [Hyoscyami* Lipitor [Atorvastat* Myalgia Parafon Forte Dsc [* Paxil [Paroxetine H* Sulfa (Sulfonamide * Other: See Comments Yeast infections Suprax [Cefixime] Urispas [Flavoxate * Voltaren [Diclofena* Current Medications Current Outpatient Medications on File Prior to Visit Medication Sig sucralfate (CARAFATE) 1 gram tablet Take 1 g by mouth three times a day. polyethylene glycol 3350 17 gram/dose powder Take 17 g by mouth once daily. levothyroxine (SYNTHROID) 150 mcg tablet Take 1 tablet by mouth once daily. Take on empty stomach. For thyroid colestipol (COLESTID) 1 gram tablet Take 1 tablet by mouth two times a day. pravastatin (PRAVACHOL) 40 mg tablet Take 1 tablet by mouth once daily. famotidine (PEPCID) 20 mg tablet Take 1 tablet by mouth o (more content not included)... [facility] 05-12-2025 Note HNO ID: [id number] Author: CRISTY HENDERSON MA Service: ? Author Type: Visual Journalist Type: Progress Notes Filed: 05/12/2025 14:31 Note Text: POPULATION HEALTH NAVIGATION OUTREACH Action/FYI ACM REJI RN Patient identified by name and date of . Reason for review or outreach: Chart Review Reji Priority Emergency Department Utilization REQUESTED ACTION/FYI: Please see ED Utilization summary below Noted increase utilization for DX reasons related to Abdominal symptoms(2) A follow-up appointment is noted to be scheduled on 10/27/25 We are forwarding this patient to Network Navigation to schedule a sooner [facility] Ed 05/09/25 PCP follow-up appointment in 1 week. Thank you ED advised GI F/U with Dr. Woodall in 3-5 days and PCP F/U Spoke to patient Scheduled ER follow up with PCP Will call Dr. Woodall to schedule Declines wellness at this time Reason for Outreach Community Monitoring/Network Navigator Pools AND Phone Line: CM Pool Care Gaps due: Medicare Annual Wellness Visit Follow-up Appointment Patient Contacted: Spoke to patient/parent/or legal guardian Patient identified by name and : Yes Community Monitoring/Network Navigator Pools AND Phone Line actions taken: Patient scheduled / pended orders: ER Follow-up 05/14/2025 in [facility] with KEV CAMPOS - ER follow up 07/28/2025 in [facility] with BELINDA JASON - 3 month cortizone shoulder/knees 10/20/2025 in [facility] with BELINDA JASON - 6 month follow up BL knee injections [facility] KEV CAMPOS - 6 month follow up Navigation Signature: Cristy Henderson MA May 12, 2025 2:27 PM [facility] 05-12-2025 Note HNO ID: [id number] Author: MADDIE KWON, RN Service: ? Author Type: Registered Nurse Type: Progress Notes Filed: 05/12/2025 11:55 Note Text: Summary: Chart review review per request of payor [facility] REJI RN Patient identified by name and date of . Reason for review or outreach: Chart Review Reji Priority Emergency Department Utilization REQUESTED ACTION/FYI: Please see ED Utilization summary below Noted increase utilization for DX reasons related to Abdominal symptoms(2) A follow-up appointment is noted to be scheduled on 10/27/25 We are forwarding this patient to Network Navigation to schedule a sooner [facility] Ed 05/09/25 PCP follow-up appointment in 1 week. Thank you ED advised GI F/U with Dr. Woodall in 3-5 days and PCP F/U Exclusion Criteria - Does not meet exclusion criteria Utilization in past 12 months: # Occurrences Date Last Occurrence Hospital Admission 1-OON 09/17/24 Hospital Observation 0 N/A ED 1-OON 05/09/25 SNF / Acute Rehab / LTAC 0 N/A ED DIAGNOSES/REASON(S) FOR ED USE: [facility] ED 05/09/25 DX: Reflux, GI upset OTHER FINDINGS/SUMMARY: Labs completed in ED Carafate prescribed TID x 7 days Advised PCP and GI F/U in 3-5 days Noted increase utilization for DX reasons related to Abdominal symptoms Patient Attributed To: Incorrect attribution QAE Payer: Luis Fernando RASCON Action Taken: Referrals/Routed: Population Health Navigation: Appointment. Router to [facility] [[id number]] Payer attribution list updated with changed PCP information Contact made with patient: No, Chart review only. Signature: Maddie DUEÑAS RN [facility] Contract Nurse/Value Based Operations [phone] [facility] 05-12-2025 Note Patient Outreach ([facility] ROMAN KUHN ([id number]) 1950 F Date Time Provider Department 05/12/25 MADDIE KWON During your visit today, we recorded the following information about you: Maddie Kwon RN 05/12/2025 11:55 AM Signed [facility] REJI RN Patient identified by name and date of . Reason for review or outreach: Chart Review Reji Priority Emergency Department Utilization REQUESTED ACTION/FYI: Please see ED Utilization summary below Noted increase utilization for DX reasons related to Abdominal symptoms(2) A follow-up appointment is noted to be scheduled on 10/27/25 We are forwarding this patient to Network Navigation to schedule a sooner [facility] Ed 05/09/25 PCP follow-up appointment in 1 week. Thank you ED advised GI F/U with Dr. Woodall in 3-5 days and PCP F/U Exclusion Criteria - Does not meet exclusion criteria Utilization in past 12 months: # Occurrences Date Last Occurrence Hospital Admission 1-OON 09/17/24 Hospital Observation 0 N/A ED 1-OON 05/09/25 SNF / Acute Rehab / LTAC 0 N/A ED DIAGNOSES/REASON(S) FOR ED USE: [facility] ED 05/09/25 DX: Reflux, GI upset OTHER FINDINGS/SUMMARY: Labs completed in ED Carafate prescribed TID x 7 days Advised PCP and GI F/U in 3-5 days Noted increase utilization for DX reasons related to Abdominal symptoms Patient Attributed To: Incorrect attribution QAE Payer: Luis Fernando RASCON Action Taken: Referrals/Routed: Population Health Navigation: Appointment. Router to [facility] [[id number]] Payer attribution list updated with changed PCP information Contact made with patient: No, Chart review only. Signature: Maddie Kwon MSN RN [facility] Contract Nurse/Value Based Operations [phone] Cristy Henderson MA 05/12/2025 2:31 PM Signed POPULATION HEALTH NAVIGATION OUTREACH Action/FYI [facility] REJI RN Patient identified by name and date of . Reason for review or outreach: Chart Review Reji Priority Emergency Department Utilization REQUESTED ACTION/FYI: Please see ED Utilization summary below Noted increase utilization for DX reasons related to Abdominal symptoms(2) A follow-up appointment is noted to be scheduled on 10/27/25 We are forwarding this patient to Network Navigation to schedule a sooner [facility] Ed 05/09/25 PCP follow-up appointment in 1 week. Thank you ED advised GI F/U with Dr. Woodall in 3-5 days and PCP F/U Spoke to patient Scheduled ER follow up with PCP Will call Dr. Woodall to schedule Declines wellness at this time Reason for Outreach Community Monitoring/Network Navigator Pools AND Phone Line: Pool Care Gaps due: Medicare Annual Wellness Visit Follow-up Appointment Patient Contacted: Spoke to patient/parent/or legal guardian Patient identified by name and : Yes Community Monitoring/Network Navigator P[employer] AND Phone Line actions taken: Patient scheduled / pended orders: ER Follow-up 05/14/2025 in [facility] with KEV CAMPOS - ER follow up 07/28/2025 in [facility] with BELINDA JASON - 3 month cortizone shoulder/knees 10/20/2025 in [facility] with BELINDA JASON - 6 month follow up BL knee injections 10/27/2025 in [facility] with KEV CAMPOS - 6 month follow up Navigation Signature: Cristy Henderson MA May 12, 2025 2:27 PM Allergies As of Date: 05/12/2025 Noted Allergy Reaction CECLOR (CEFACLOR) 04/27/2005 Comments: ER for anaphylaxis AVELOX (MOXIFLOXACIN HCL) 03/05/2010 5 - Intolerance BACTRIM (SULFAMETHOXAZOLE) 12/20/2012 16 - Unknown Comments: Insides were raging BIAXIN (CLARITHROMYCIN) 04/27/2005 CELEXA (CITALOPRAM HYDROBROMIDE) 05/16/2005 16 - Unknown CIPRO (CIPROFLOXACIN) 04/27/2005 8 - GI Upset ERYTHROMYCIN 04/27/2005 8 - GI Upset Comments: GI upset LEVSINEX (HYOSCYAMINE SULFATE) 05/16/2005 LIPITOR (ATORVASTATIN CALCIUM) 05/16/2005 17 - Myalgia PARAFON FORTE DSC (CHLORZOXAZONE) 05/16/2005 PAXIL (PAROXETINE HCL) 05/16/2005 SULFA (SULFONAMIDE ANTIBIOTICS) 12/17/2012 14 - Other: See Comments Comments: Yeast infections SUPRAX (CEFIXIME) 04/27/2005 URISPAS (FLAVOXATE HCL) 05/16/2005 VOLTAREN (DICLOFENAC SODIUM) 05/16/2005 Date Reviewed: 04/28/2025 Reviewed by: Rosa Hidalgo LPN - Fully Assessed Reason for Visit: ACM REJI RN [[id number]] Cmt: Chart review review per request of payor Prescriptions as of 05/12/2025 - polyethylene glycol 3350 17 gram/dose powder Take 17 g by mouth once daily. - levothyroxine (SYNTHROID) 150 mcg tablet Take 1 tablet by mouth once daily. Take on empty stomach. For thyroid - colestipol (COLESTID) 1 gram tablet Take 1 tablet by mouth two times a day. - pravastatin (PRAVACHOL) 40 mg tablet Take 1 tablet by mouth once daily. - famotidine (PEPCID) 20 mg tablet Take 1 tablet by mouth once daily. Taking 2 tablets by (more content not included)... [facility] 04-28-2025 Note HNO ID: [id number] Author: KILEY BROOKS APRN.CANCER REGISTRAR Service: ? Author Type: Nurse Practitioner Type: Progress Notes Filed: 04/28/2025 14:04 Note Text: 04/28/2025 Patient presents with: Transfer of care to new provider Recording using [employer] software for draft documentation of the visit was discussed with the patient/authorized paper sales representative; all questions welcomed and answered. Patient/authorized paper sales representative agreed to proceed SUBJECTIVE: This is a 74 year old that is here today for Above Complaints.. Ron Kuhn is a 74-year-old female with a history of hypothyroidism, hyperlipidemia, IBS, and bile reflux gastritis, presenting for follow-up. Hypothyroidism: - Levothyroxine dose increased to [address] Reyes 6 weeks ago. - Adherent to medication, taking it first thing in the morning on an empty stomach. - No TSH recheck since dose adjustment. Bile Reflux Gastritis: - Diagnosed by Dr. Woodall in June. - Taking colestipol BID, after breakfast and dinner. - Taking famotidine 40 mg at bedtime. - Taking pantoprazole 30 minutes before breakfast and dinner. IBS: - Primarily constipation. - Using Miralax daily in the morning, dissolved in coffee. - Taking Benefiber. Allergic Rhinitis: - Symptoms primarily in spring and fall, including sinus headaches and inflammation. - Using a neti pot every morning. - Using Flonase nasal spray. Hyperlipidemia: - Taking pravastatin 40 mg daily. - Reports decreased physical activity since correction. Family History: - Mother at 81 due to heart issues. - Father had prostate cancer and an enlarged heart. - Brother ; sister's status unknown. - Maternal grandfather of colon cancer. Social History: - Smokes 1/3 to 1/4 pack of cigarettes per day. - Rare alcohol consumption. - No illicit drug use. - with two children. - Retired, previously worked at [employer]. Past medical, surgical, family, social hx, medications, allergies and health maintenance reviewed and updated PAST MEDICAL HISTORY Diagnosis Date Abdominal pain, epigastric Allergic rhinitis, cause unspecified Allergic rhinitis Bile reflux gastritis Esophageal reflux Bile reflux gastritis IBS (irritable bowel syndrome) constipation primarily Other and unspecified hyperlipidemia Unspecified hypothyroidism ALLERGIES Ceclor [Cefaclor], Avelox [Moxifloxacin Hcl], Bactrim [Sulfamethoxazole], Biaxin [Clarithromycin], Celexa [Citalopram Hydrobromide], Cipro [Ciprofloxacin], Erythromycin, Levsinex [Hyoscyamine Sulfate], Lipitor [Atorvastatin Calcium], Parafon Forte Dsc [Chlorzoxazone], Paxil [Paroxetine Hcl], Sulfa (Sulfonamide Antibiotics), Suprax [Cefixime], Urispas [Flavoxate Hcl], and Voltaren [Diclofenac Sodium] MEDICATIONS Current Outpatient Medications Medication Sig levothyroxine (SYNTHROID) 150 mcg tablet Take 1 tablet by mouth once daily. Take on empty stomach. For thyroid colestipol (COLESTID) 1 gram tablet Take 1 tablet by mouth two times a day. pravastatin (PRAVACHOL) 40 mg tablet Take 1 tablet by mouth once daily. famotidine (PEPCID) 20 mg tablet Take 1 tablet by mouth once daily. Taking 2 tablets by mouth once daily before bedtime. pantoprazole DR (PROTONIX) 40 mg tablet Take 1 tablet by mouth two times a day. Take on empty stomach, 1/2 hr before meal. albuterol HFA (VENTOLIN HFA) 90 mcg/actuation inhaler Inhale 2 Puffs as instructed every 6 hours as needed for wheezing/shortness of breath. tretinoin (RETIN-A) 0.025 % topical cream Apply 1 application to affected area daily at bedtime. BENEFIBER, WHEAT DEXTRIN, ORAL Take 2 teaspoonsful by mouth three times a day. triamcinolone acetonide (NASACORT) 55 mcg nasal inhaler Use 2 Sprays in the nose once daily. aspirin(ECOTRIN LOW STRENGTH 81 MG TAB) Take one(1) tablet daily. ONE DAILY MULTI-VITAMIN TAB Take one(1) tablet daily. polyethylene glycol 3350 17 gram/dose powder Take 17 g by mouth once daily. No current facility-administered medications for this visit. Medications and allergies reviewed by this provider. SOCIAL HISTORY SOCIAL HISTORY[1] REVIEW OF SYSTEMS All other reviewed and negative other than HPI. OBJECTIVE: BP 126/84 Pulse 100 Resp 18 Ht 157.1 cm (5' 1.85) Wt 55.2 kg (121 lb 9.6 oz) SpO2 95% BMI 22.35 kg/m? . Vital signs reviewed by this provider. APPEARANCE Well appearing, alert, in no acute distress, well-hydrated, well nourished. EYES PERRLA, conjunctiva and sclera normal. HEART RRR with normal S1 and S2, no murmurs, no gallops, no JVD appreciated LUNG clear to auscultation. No wheezes, rhonchi or rales EXTREMITIES Extremities normal, No deformities, No skin discoloration, and No edema SKIN Skin color, texture, turgor normal, no suspicious rashes or lesions to exposed skin Shingrix Vaccine(2 of 3) due on 08/08/2012 Advance Directive Discussion due on 07/03/2024 (more content not included)... [facility] 04-21-2025 Note HNO ID: [id number] Author: BELINDA JASON PA-C Service: ? Author Type: Physician Radio Producer Type: Progress Notes Filed: 04/21/2025 14:02 Note Text: Large Joint Arthro/Inj: bilateral knee joints 04/21/2025 2:02 PM The procedure site was prepped in the usual sterile fashion. Site: bilateral knee joints Medications (Right): 3 mL hyaluronate sodium, stabilized 60 mg/3 mL Medications (Left): 3 mL hyaluronate sodium, stabilized 60 mg/3 mL Outcome: Tolerated well, no immediate complications Post-injection instructions were reviewed with the patient and the patient voiced understanding of these instructions. Informed Consent Consent Obtained: Verbal [place] Protocol A moment to CARE was completed. SIGN IN Sign in communication not applicable due to emergent procedure. Personnel directly involved with the procedure wore the appropriate PPE. Special Equipment: N/A Patient/Surrogate Stated/Verified: Patient name, Date of , Relevant allergies and Intended procedure TIME OUT Relevant labs, photos, and/or imaging studies have been reviewed. Consent documented and matches the intended procedure. Correct side/site marked and visible. Medications required for procedure verified. No fire risk assessment and interventions applicable. No implant(s) inserted. SIGN OUT No specimen collected. All instruments, equipment, possible retained foreign bodies accounted for. No post-procedure POC communication to the patient's multidisciplinary team (including the bedside nurse for hospitalized patients) applicable. [facility] 04-21-2025 Note HNO ID: [id number] Author: COTY HARDIN MA Service: ? 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 Taking Therox foam on her knee and helps with the pain. LOT # [id number] EXP 07/02/2027 Coty Hardin MA [facility] 04-12-2025 Note HNO ID: [id number] Author: JINA RUIZ APRN.CANCER REGISTRAR Service: ? Author Type: Nurse Practitioner Type: Progress Notes Filed: 04/12/2025 08:59 Note Text: URGENT CARE ERROL Subjective Roman Kuhn is a 74 year old female. Patient presents with: Sinus Problem: right ear pain and swollen glands x 3 weeks Sinus Problem The patient is a 74-year-old female with a history of hyperlipidemia and hypothyroidism, presenting with sinus congestion and right ear pain. Sinus Congestion and Right Ear Pain: - Sinus congestion and right ear pain x3 weeks. - Swollen glands noted. - Woke up this morning with nasal congestion. - Reports feeling freezing and achy yesterday, with a temperature of 100 degreeF. - Taking Claritin-D every other day with some relief. - Took two Tylenol yesterday for aches. - Denies cough. - Similar symptoms occur every fall; last episode was last year - Typically treated with doxycycline for sinus infections. Denies hemoptysis Denies cough Denies dyspnea. Denies SOB Social History: - Smoker. PAST MEDICAL HISTORY Diagnosis Date Abdominal pain, epigastric Allergic rhinitis, cause unspecified Allergic rhinitis Esophageal reflux Bile reflux gastritis IBS (irritable bowel syndrome) constipation primarily Other and unspecified hyperlipidemia Unspecified hypothyroidism PAST SURGICAL HISTORY Procedure Laterality Date ABDOMINAL SURGERY HX BIOPSY BREAST OPEN INCISIONAL 08/14/2017 left stereotactic breast biopsy w/clip placement [facility] COLONOSCOPY N/A 09/17/2024 COLONOSCOPY FLX DX W/COLLJ SPEC WHEN PFRMD 12/18/2003 Colonoscopy COLONOSCOPY FLX DX W/COLLJ SPEC WHEN PFRMD 03/11/2008 Colonoscopy COLONOSCOPY FLX DX W/COLLJ SPEC WHEN PFRMD 07/19/2012 Colonoscopy COLONOSCOPY FLX DX W/COLLJ SPEC WHEN PFRMD 11/13/2018 Colonoscopy COSMETIC ASSESSMENT EGD 09/01/2020 EGD W/O [facility] SPEC VARICIES INJ N/A 09/17/2024 ESOPHAGOGASTRODUODENOSCOPY TRANSORAL DIAGNOSTIC 03/12/2012 EGD ESOPHAGOGASTRODUODENOSCOPY TRANSORAL DIAGNOSTIC 11/13/2018 EGD EYE SURGERY HX LAPS SURG CHOLECYSTECTOMY W/CHOLANGIOGRAPHY 04/17/2012 Normal IOC PAST SURGICAL HISTORY OF hemmorhoidectomy PAST SURGICAL HISTORY OF 1969 ventral hernia repair - [place] - unknown for mesh PAST SURGICAL HISTORY OF age 27 partial hysterectomy PAST SURGICAL HISTORY OF 1998 benign breast bx PAST SURGICAL HISTORY OF 07/2002 lasik eye surgery PAST SURGICAL HISTORY OF 07/2006 recheck and enhancement on eye surgery PAST SURGICAL HISTORY OF Bilateral 2019 OD - 08/21, OS - 09/[address] Stock. Cataract implants RHINP PRIM LATANDALAR CRTLGSAND/ELVTN NASAL TI Rhinoplasty x 2 VAGINAL HYSTERECTOMY ALLERGIES Ceclor [Cefaclor], Avelox [Moxifloxacin Hcl], Bactrim [Sulfamethoxazole], Biaxin [Clarithromycin], Celexa [Citalopram Hydrobromide], Cipro [Ciprofloxacin], Entex [Phenylephrine-Guaifenesin], Erythromycin, Levsinex [Hyoscyamine Sulfate], Lipitor [Atorvastatin Calcium], Naldecon Senior Dx [Dextromethorphan-Guaifenesin], Parafon Forte Dsc [Chlorzoxazone], Paxil [Paroxetine Hcl], Sulfa (Sulfonamide Antibiotics), Suprax [Cefixime], Urispas [Flavoxate Hcl], and Voltaren [Diclofenac Sodium] MEDICATIONS levothyroxine (SYNTHROID) 150 mcg tablet Take 1 tablet by mouth once daily. Take on empty stomach. For thyroid colestipol (COLESTID) 1 gram tablet Take 1 tablet by mouth two times a day. pravastatin (PRAVACHOL) 40 mg tablet Take 1 tablet by mouth once daily. famotidine (PEPCID) 20 mg tablet Take 1 tablet by mouth once daily. Taking 2 tablets by mouth once daily before bedtime. pantoprazole DR (PROTONIX) 40 mg tablet Take 1 tablet by mouth two times a day. Take on empty stomach, 1/2 hr before meal. albuterol HFA (VENTOLIN HFA) 90 mcg/actuation inhaler Inhale 2 Puffs as instructed every 6 hours as needed for wheezing/shortness of breath. tretinoin (RETIN-A) 0.025 % topical cream Apply 1 application to affected area daily at bedtime. BENEFIBER, WHEAT DEXTRIN, ORAL Take 2 teaspoonsful by mouth three times a day. polyethylene glycol 3350 (MIRALAX, GLYCOLAX) 17 gram/dose powder Take 17 g by mouth twice daily. triamcinolone acetonide (NASACORT) 55 mcg nasal inhaler Use 2 Sprays in the nose once daily. aspirin(ECOTRIN LOW STRENGTH 81 MG TAB) Take one(1) tablet daily. ONE DAILY MULTI-VITAMIN TAB Take one(1) tablet daily. doxycycline hyclate (VIBRAMYCIN) 100 mg capsule Take 1 capsule by mouth two times a day for 7 days. FAMILY HISTORY Problem Relation Age of Onset Prostate Cancer Father Coronary Artery Disease Father late in life; enlarged heart; smoked Heart Mother valve, age 81 Colon Cancer Other none Diabetes Other none SOCIAL HISTORY[1] Review of Systems Constitutional: (+) fever, (+) chills Ears/Nose/Mouth/Throat: (+) right ear pain, (+) nasal obstruction, (+) facial pressure Neck: (+) swollen cervical lymph nodes Respiratory: (-) cough Musculoskel (more content not included)... [facility] 03-18-2025 History of Present illness Narrative Chief Complaint Patient presents with: 6 Month Exam Immunizations: Flu vaccination Recording using ambient [employer] software for draft documentation of the visit was discussed with the patient/authorized paper sales representative; all questions welcomed and answered. Patient/authorized paper sales representative agreed to proceed HPI Roman Kuhn is a 74 year old female who presents here today for 6 month follow up. Smokes 1 ppd. She has attempted smoking cessation in the past, including acupuncture 2 years ago, hypnosis, and pharmacotherapy, but has been unsuccessful. She expresses a lack of interest in quitting smoking at this time. No urinary concerns. Has chronic bowel and GI issues. Chronic hx IBS. Has found that taking Miralax BID, Benefiber, Protonix 40 mg once daily, Pepcid 20 mg once daily and Colestid 1 gram daily. Did start taking a daily Probiotic helps the bowels. Lipid/glucose: Watches her diet. Exercising 15 minutes of stretching per day. Taking Pravastatin 40 mg daily. Thyroid: Taking synthroid 125 mcg daily, feels okay on this dosage. No missed dosages. Increased form 112 mcg last visit due to TSH of 4.79. Issues with sacroiliac joint and following with Chiropractor and went through their program. Does 15 minutes of stretching every morning. Follows with Nimo Morrison. Uses Prevagin daily for memory. Past medical history, appointments, medications, allergies reviewed. Previous Medical History PAST MEDICAL HISTORY Diagnosis Date Abdominal pain, epigastric Allergic rhinitis, cause unspecified Allergic rhinitis Esophageal reflux Bile reflux gastritis IBS (irritable bowel syndrome) constipation primarily Other and unspecified hyperlipidemia Unspecified hypothyroidism Previous Surgical History PAST SURGICAL HISTORY Procedure Laterality Date ABDOMINAL SURGERY HX BIOPSY BREAST OPEN INCISIONAL 08/14/2017 left stereotactic breast biopsy w/clip placement [facility] COLONOSCOPY N/A 09/17/2024 COLONOSCOPY FLX DX W/COLLJ SPEC WHEN PFRMD 12/18/2003 Colonoscopy COLONOSCOPY FLX DX W/COLLJ SPEC WHEN PFRMD 03/11/2008 Colonoscopy COLONOSCOPY FLX DX W/COLLJ SPEC WHEN PFRMD 07/19/2012 Colonoscopy COLONOSCOPY FLX DX W/COLLJ SPEC WHEN PFRMD 11/13/2018 Colonoscopy COSMETIC ASSESSMENT EGD 09/01/2020 EGD W/O [facility] SPEC VARICIES INJ N/A 09/17/2024 ESOPHAGOGASTRODUODENOSCOPY TRANSORAL DIAGNOSTIC 03/12/2012 EGD ESOPHAGOGASTRODUODENOSCOPY TRANSORAL DIAGNOSTIC 11/13/2018 EGD EYE SURGERY HX LAPS SURG CHOLECYSTECTOMY W/CHOLANGIOGRAPHY 04/17/2012 Normal IOC PAST SURGICAL HISTORY OF hemmorhoidectomy PAST SURGICAL HISTORY OF 1969 ventral hernia repair - [place] - unknown for mesh PAST SURGICAL HISTORY OF age 27 partial hysterectomy PAST SURGICAL HISTORY OF 1998 benign breast bx PAST SURGICAL HISTORY OF 07/2002 lasik eye surgery PAST SURGICAL HISTORY OF 07/2006 recheck and enhancement on eye surgery PAST SURGICAL HISTORY OF Bilateral 2018 OD - 08/21, OS - 09/[address] Stock. Cataract implants RHINP PRIM LAT&ALAR CRTLGS&/ELVTN NASAL TI Rhinoplasty x 2 VAGINAL HYSTERECTOMY Family History FAMILY HISTORY Problem Relation Age of Onset Prostate Cancer Father Coronary Artery Disease Father late in life; enlarged heart; smoked Heart Mother valve, age 81 Colon Cancer Other none Diabetes Other none Patient Allergies ALLERGIES Allergen Reactions Ceclor [Cefaclor] ER for anaphylaxis Avelox [Moxifloxaci* Intolerance Bactrim [Sulfametho* Unknown Insides were raging Biaxin [Clarithromy* Celexa [Citalopram * Unknown Cipro [Ciprofloxaci* Entex [Phenylephrin* Erythromycin Levsinex [Hyoscyami* Lipitor [Atorvastat* Naldecon Senior Dx * Parafon Forte Dsc [* Paxil [Paroxetine H* Sulfa (Sulfonamide * Other: See Comments Suprax [Cefixime] Urispas [Flavoxate * Voltaren [Diclofena* Current Medications Current Outpatient Medications on File Prior to Visit Medication Sig doxycycline hyclate (VIBRAMYCIN) 100 mg capsule Take 1 capsule by mouth two times a day for 10 days. colestipol (COLESTID) 1 gram tablet Take 1 tablet by mouth two times a day. pravastatin (PRAVACHOL) 40 mg tablet Take 1 tablet by mouth once daily. famotidine (PEPCID) 20 mg tablet Take 1 tablet by mouth once daily. Taking 2 tablets by mouth once daily before bedtime. pantoprazole DR (PROTONIX) 40 mg tablet Take 1 tablet by mouth two times a day. Take on empty stomach, 1/2 hr before meal. levothyroxine (SYNTHROID) 125 mcg tablet Take 1 tablet by mouth once daily. Take on empty stomach. For thyroid albuterol HFA (VENTOLIN HFA) 90 mcg/actuation inhaler Inhale 2 Puffs as instructed every 6 hours as needed for wheezing/shortness of breath. tretinoin (RETIN-A) 0.025 % topical cream Apply 1 application to affected area daily at bedtime. BENEFIBER, WHEAT DEXTRIN, ORAL Take 2 teaspoonsful by mouth three times a day. polyethylene glycol 3350 (MIRALAX, GLYCOLAX) 17 gram/dose powder Take 17 g by mouth twice daily. triamcinolone acetonide (NASACORT) 55 mcg nasal inhaler Use 2 Sprays in the nose once daily. aspirin(ECOTRIN LOW STRENGTH 81 MG TAB) Take one(1) tablet daily. ONE DAILY MULTI-VITAMIN TAB Take one(1) tablet daily. No current facility-administered medications on file prior to visit. Social History SOCIAL HISTORY[1] EXAM: BP 124/70 Pulse 88 Resp 16 Wt 56.2 kg (123 lb 14.4 oz) BMI 22.66 kg/m General Appearance: Well appearing, alert, in no acute distress, well-hydrated, well nourished.. Lungs: Lungs clear to auscultation. No wheezing, rhonchi, rales.. Heart: RRR without murmur, gallop, or rubs. No ectopy. Health Maintenance List Shingrix Vaccine(2 of 3) due on 08/08/2012 Advance Directive Discussion due on 07/03/2024 Medicare Advantage Annual Wellness Visit Never done Lung Cancer Screening due on 11/19/2024 Depression Screening due on 02/25/2025 Anxiety Screening due on 02/25/2025 Influenza Vaccine(1) due on 03/03/2025 Annual PCP Team Chronic Disease Visit due on 12/23/2025 Diabetes Screening due on 03/08/2028 DTaP,Tdap,Td Vaccine(3 - Td or Tdap) due on 12/13/2029 Bone Density Screening Completed RSV Vaccine Completed Hepatitis C Screening Completed Pneumococcal Vaccine: 50+ Completed Mammogram Screening Discontinued Colorectal Cancer Screening Discontinued Data reviewed Appointment on 03/08/2025 Component Date Value Protein, Total 03/08/2025 6.5 Albumin 03/08/2025 4.3 Calcium, Total 03/08/2025 9.6 Bilirubin, Total 03/08/2025 0.4 Alkaline Phosphatase 03/08/2025 67 AST 03/08/2025 24 ALT 03/08/2025 18 Glucose 03/08/2025 103 (H) BUN 03/08/2025 14 Creatinine 03/08/2025 0.72 Sodium 03/08/2025 141 Potassium 03/08/2025 4.8 Chloride 03/08/2025 105 CO2 03/08/2025 25 Anion Gap 03/08/2025 11 Estimated Glomerular Adan* 03/08/2025 87 Cholesterol, Total 03/08/2025 221 (H) Triglyceride 03/08/2025 101 HDL Cholesterol 03/08/2025 73 LDL Cholesterol, Calcula* 03/08/2025 130 (H) Non HDL Cholesterol 03/08/2025 148 (H) VLDL Cholesterol 03/08/2025 18 TC:HDL Ratio 03/08/2025 3.03 LDL:HDL Ratio 03/08/2025 1.78 Fasting Time 03/08/2025 12 Hemoglobin A1C 03/08/2025 6.2 (H) Estimated Average Glucose 03/08/2025 131 WBC 03/08/2025 8.20 RBC 03/08/2025 4.26 Hemoglobin 03/08/2025 14.2 Hematocrit 03/08/2025 41.6 MCV 03/08/2025 97.7 MCH 03/08/2025 33.3 MCHC 03/08/2025 34.1 RDW-CV 03/08/2025 13.9 Platelet Count 03/08/2025 298 MPV 03/08/2025 9.8 Absolute nRBC 03/08/2025 <0.01 TSH 03/08/2025 15.900 (H) 1. Hypothyroidism, unspecified type (E03.9) TSH elevated to 15 on most recent labs, indicating current Synthroid 125 mcg dose is insufficient. - Increase Synthroid from 125 mcg to 150 mcg daily. 2. Need for influenza vaccination (Z23) - Administer influenza vaccine today. 3. Hyperlipidemia, unspecified hyperlipidemia type (E78.5) Total cholesterol elevated at 221 mg/dL on most recent labs; patient remains on pravastatin. - Continue current pravastatin regimen. 4. Gastroesophageal reflux disease, unspecified whether esophagitis present (K21.9) GERD symptoms well controlled on Pepcid and famotidine 40 mg at bedtime. - Continue current Pepcid and famotidine regimen. 5. Irritable bowel syndrome, unspecified type (K58.9) Bowel function stable on current regimen of 2 colestipol daily. - Continue colestipol as prescribed. 6. Elevated glucose (R73.09) Fasting blood glucose slightly elevated at 103 mg/dL (normal <100 mg/dL); HbA1c unchanged from prior results and remains below diabetes threshold. - Continue current management. 7. Smoker (F17.200) Patient smokes approximately 1 pack per day; previous cessation attempts included acupuncture, hypnosis, and pharmacotherapy, all unsuccessful. - Discussed risks of continued smoking. 8. Screening for depression (Z13.31) 9. Encounter for screening examination for other mental health and behavioral disorders (Z13.39) Follow up in 6 months I agree with the Chief Complaint, ROS, and Past Histories independently gathered by the clinical manager client support and the remaining scribed note accurately describes my personal service to the patient. Medical Decision Making: Problems: Moderate: 2+ stable chronic illnesses Data: Unique test result(s) reviewed: 3+ Unique test(s) ordered: 3+ Risk: Moderate: Drug management Medical Decision Making Level: 4 - Moderate Pepe Reyes MD The documentation for this note was completed by Aracely Pires MA acting as scribe for Pepe Reyes MD. March 18, 2025 2:45 PM. Aracely Pires MA [1] Social History Tobacco Use Smoking status: Every Day Current packs/day: 0.75 Average packs/day: 0.8 packs/day for 56.0 years (42.0 ttl pk-yrs) Types: Cigarettes Smokeless tobacco: Never Vaping Use Vaping status: Never Used Substance Use Topics Alcohol use: Yes Comment: occasionally Drug use: No documented in this encounter [facility] 03-18-2025 Note HNO ID: [id number] Author: PEPE REYES MD Service: ? Author Type: Physician Type: Progress Notes Filed: 03/18/2025 16:55 Note Text: Chief Complaint Patient presents with: 6 Month Exam Immunizations: Flu vaccination Recording using [employer] software for draft documentation of the visit was discussed with the patient/authorized paper sales representative; all questions welcomed and answered. Patient/authorized paper sales representative agreed to proceed HPI Roman Kuhn is a 74 year old female who presents here today for 6 month follow up. Smokes 1 ppd. She has attempted smoking cessation in the past, including acupuncture 2 years ago, hypnosis, and pharmacotherapy, but has been unsuccessful. She expresses a lack of interest in quitting smoking at this time. No urinary concerns. Has chronic bowel and GI issues. Chronic hx IBS. Has found that taking Miralax BID, Benefiber, Protonix 40 mg once daily, Pepcid 20 mg once daily and Colestid 1 gram daily. Did start taking a daily Probiotic helps the bowels. Lipid/glucose: Watches her diet. Exercising 15 minutes of stretching per day. Taking Pravastatin 40 mg daily. Thyroid: Taking synthroid 125 mcg daily, feels okay on this dosage. No missed dosages. Increased form 112 mcg last visit due to TSH of 4.79. Issues with sacroiliac joint and following with Chiropractor and went through their program. Does 15 minutes of stretching every morning. Follows with Nimo Morrison. Uses Prevagin daily for memory. Past medical history, appointments, medications, allergies reviewed. Previous Medical History PAST MEDICAL HISTORY Diagnosis Date Abdominal pain, epigastric Allergic rhinitis, cause unspecified Allergic rhinitis Esophageal reflux Bile reflux gastritis IBS (irritable bowel syndrome) constipation primarily Other and unspecified hyperlipidemia Unspecified hypothyroidism Previous Surgical History PAST SURGICAL HISTORY Procedure Laterality Date ABDOMINAL SURGERY HX BIOPSY BREAST OPEN INCISIONAL 08/14/2017 left stereotactic breast biopsy w/clip placement [facility] COLONOSCOPY N/A 09/17/2024 COLONOSCOPY FLX DX W/COLLJ SPEC WHEN PFRMD 12/18/2003 Colonoscopy COLONOSCOPY FLX DX W/COLLJ SPEC WHEN PFRMD 03/11/2008 Colonoscopy COLONOSCOPY FLX DX W/COLLJ SPEC WHEN PFRMD 07/19/2012 Colonoscopy COLONOSCOPY FLX DX W/COLLJ SPEC WHEN PFRMD 11/13/2018 Colonoscopy COSMETIC ASSESSMENT EGD 09/01/2020 EGD W/O [facility] SPEC VARICIES INJ N/A 09/17/2024 ESOPHAGOGASTRODUODENOSCOPY TRANSORAL DIAGNOSTIC 03/12/2012 EGD ESOPHAGOGASTRODUODENOSCOPY TRANSORAL DIAGNOSTIC 11/13/2018 EGD EYE SURGERY HX LAPS SURG CHOLECYSTECTOMY W/CHOLANGIOGRAPHY 04/17/2012 Normal IOC PAST SURGICAL HISTORY OF hemmorhoidectomy PAST SURGICAL HISTORY OF 1969 ventral hernia repair - [place] - unknown for mesh PAST SURGICAL HISTORY OF age 27 partial hysterectomy PAST SURGICAL HISTORY OF 1998 benign breast bx PAST SURGICAL HISTORY OF 07/2002 lasik eye surgery PAST SURGICAL HISTORY OF 07/2006 recheck and enhancement on eye surgery PAST SURGICAL HISTORY OF Bilateral 2018 OD - 08/21, OS - 09/[address] Stock. Cataract implants RHINP PRIM LATANDALAR CRTLGSAND/ELVTN NASAL TI Rhinoplasty x 2 VAGINAL HYSTERECTOMY Family History FAMILY HISTORY Problem Relation Age of Onset Prostate Cancer Father Coronary Artery Disease Father late in life; enlarged heart; smoked Heart Mother valve, age 81 Colon Cancer Other none Diabetes Other none Patient Allergies ALLERGIES Allergen Reactions Ceclor [Cefaclor] ER for anaphylaxis Avelox [Moxifloxaci* Intolerance Bactrim [Sulfametho* Unknown Insides were raging Biaxin [Clarithromy* Celexa [Citalopram * Unknown Cipro [Ciprofloxaci* Entex [Phenylephrin* Erythromycin Levsinex [Hyoscyami* Lipitor [Atorvastat* Naldecon Senior Dx * Parafon Forte Dsc [* Paxil [Paroxetine H* Sulfa (Sulfonamide * Other: See Comments Suprax [Cefixime] Urispas [Flavoxate * Voltaren [Diclofena* Current Medications Current Outpatient Medications on File Prior to Visit Medication Sig doxycycline hyclate (VIBRAMYCIN) 100 mg capsule Take 1 capsule by mouth two times a day for 10 days. colestipol (COLESTID) 1 gram tablet Take 1 tablet by mouth two times a day. pravastatin (PRAVACHOL) 40 mg tablet Take 1 tablet by mouth once daily. famotidine (PEPCID) 20 mg tablet Take 1 tablet by mouth once daily. Taking 2 tablets by mouth once daily before bedtime. pantoprazole DR (PROTONIX) 40 mg tablet Take 1 tablet by mouth two times a day. Take on empty stomach, 1/2 hr before meal. levothyroxine (SYNTHROID) 125 mcg tablet Take 1 tablet by mouth once daily. Take on empty stomach. For thyroid albuterol HFA (VENTOLIN HFA) 90 mcg/actuation inhaler Inhale 2 Puffs as instructed every 6 hours as needed for wheezing/shortness of breath. tretinoin (RETIN-A) 0.025 % topical cream Apply 1 application to affected area (more content not included)... [facility] 02-15-2025 Note HNO ID: [id number] Author: ROCHELLE BRICE MD Service: ? Author Type: Physician Type: Progress Notes Filed: 02/15/2025 09:21 Note Text: [facility] Brandee Kuhn is a 74 year old female. Patient presents with: Cough: X10 days, no relief with albuterol inhaler Pt here with over 1 week hx of uri sx now post nasal drip sinsu pressure and a cough no fever no chills no dyspnea pt is a current smoker Cough Pertinent negatives include no chills and no shortness of breath. Review of Systems Constitutional: Positive for fatigue. Negative for chills and fever. HENT: Positive for congestion, postnasal drip, sinus pressure and sinus pain. Respiratory: Positive for cough and chest tightness. Negative for shortness of breath and stridor. Neurological: Negative for dizziness and light-headedness. Objective BP 136/83 Pulse 96 Temp 36.8 ?C (98.3 ?F) Resp 18 Wt 55 kg (121 lb 4.1 oz) SpO2 97% BMI 22.18 kg/m? Physical Exam Vitals and nursing note reviewed. Constitutional: Appearance: Normal appearance. She is not ill-appearing. HENT: Right Ear: Tympanic membrane and ear canal normal. Left Ear: Tympanic membrane and ear canal normal. Nose: Congestion and rhinorrhea present. Mouth/Throat: Mouth: Mucous membranes are moist. Pharynx: Oropharynx is clear. Cardiovascular: Rate and Rhythm: Normal rate and regular rhythm. Heart sounds: Normal heart sounds. Pulmonary: Effort: Pulmonary effort is normal. Breath sounds: Normal breath sounds. No stridor. No wheezing, rhonchi or rales. Neurological: Mental Status: She is alert and oriented to person, place, and time. Psychiatric: Mood and Affect: Mood normal. Behavior: Behavior normal. {ASSESSMENT/PLAN: 1. Acute non-recurrent sinusitis, unspecified location - ICD9: 461.9, ICD10: J01.90 (primary diagnosis) - DOXYCYCLINE HYCLATE 100 MG CAPSULE - PREDNISONE 20 MG TABLET 2. Acute bronchitis, unspecified organism - ICD9: 466.0, ICD10: J20.9 Return here for a chest xray if no better - DOXYCYCLINE HYCLATE 100 MG CAPSULE - PREDNISONE 20 MG TABLET Rochelle Brice MD History and Record Review External record(s) reviewed: prior outpatient record. Systemic symptoms present included: fatigue Differential Diagnoses - bronchitis , sinusitis is more likely for the following reason(s): suggested by HANDP - pneumonia is less likely for the following reason(s): o2 sat normal exam normal, HANDP not suggestive Disposition The patient was discharged. Procedures [facility] 02-15-2025 History of Present illness Narrative [facility] Irvin Roman Kuhn is a 74 year old female. Patient presents with: Cough: X10 days, no relief with albuterol inhaler Pt here with over 1 week hx of uri sx now post nasal drip sinsu pressure and a cough no fever no chills no dyspnea pt is a current smoker Cough Pertinent negatives include no chills and no shortness of breath. Review of Systems Constitutional: Positive for fatigue. Negative for chills and fever. HENT: Positive for congestion, postnasal drip, sinus pressure and sinus pain. Respiratory: Positive for cough and chest tightness. Negative for shortness of breath and stridor. Neurological: Negative for dizziness and light-headedness. Objective BP 136/83 Pulse 96 Temp 36.8 C (98.3 F) Resp 18 Wt 55 kg (121 lb 4.1 oz) SpO2 97% BMI 22.18 kg/m Physical Exam Vitals and nursing note reviewed. Constitutional: Appearance: Normal appearance. She is not ill-appearing. HENT: Right Ear: Tympanic membrane and ear canal normal. Left Ear: Tympanic membrane and ear canal normal. Nose: Congestion and rhinorrhea present. Mouth/Throat: Mouth: Mucous membranes are moist. Pharynx: Oropharynx is clear. Cardiovascular: Rate and Rhythm: Normal rate and regular rhythm. Heart sounds: Normal heart sounds. Pulmonary: Effort: Pulmonary effort is normal. Breath sounds: Normal breath sounds. No stridor. No wheezing, rhonchi or rales. Neurological: Mental Status: She is alert and oriented to person, place, and time. Psychiatric: Mood and Affect: Mood normal. Behavior: Behavior normal. {ASSESSMENT/PLAN: 1. Acute non-recurrent sinusitis, unspecified location - ICD9: 461.9, ICD10: J01.90 (primary diagnosis) - DOXYCYCLINE HYCLATE 100 MG CAPSULE - PREDNISONE 20 MG TABLET 2. Acute bronchitis, unspecified organism - ICD9: 466.0, ICD10: J20.9 Return here for a chest xray if no better - DOXYCYCLINE HYCLATE 100 MG CAPSULE - PREDNISONE 20 MG TABLET Rochelle Brice MD History and Record Review External record(s) reviewed: prior outpatient record. Systemic symptoms present included: fatigue Differential Diagnoses - bronchitis , sinusitis is more likely for the following reason(s): suggested by H&P - pneumonia is less likely for the following reason(s): o2 sat normal exam normal, H&P not suggestive Disposition The patient was discharged. Procedures documented in this encounter [facility] 02-15-2025 Instructions Rochelle Brice MD - 02/15/2025 9:14 AM EDT Sinusitis You have been seen for a sinus infection. Sinus infections are common. They often happen after people have a virus or a common cold. Symptoms are: Pain in the face, green or yellow mucous from the nose, fever (temperature higher than 100.4 F / 38 C) and chills. There may also be a feeling of fullness or pressure in the face. Decongestants may be used to help the sinuses drain. Sometimes a steroid spray is used. You may need antibiotics for the infection. Not all cases of sinusitis need antibiotics. Viruses cause most sinusitis. Antibiotics do not work on viruses. Sometimes sinusitis and be caused by bacteria. These cases usually get better with medicine to help the sinuses drain. Antibiotics should be given only to patients who have symptoms for more than 2 weeks and if they have fever, severe sinus pain and pus mixed in with the mucus. YOU SHOULD SEEK MEDICAL ATTENTION IMMEDIATELY, EITHER HERE OR AT THE NEAREST EMERGENCY DEPARTMENT, IF ANY OF THE FOLLOWING OCCURS: You do not get better with treatment. You have severe headaches and high fever (temperature higher than 100.4 F / 38 C) or any confusion. You have worse pain in the face Your face gets more swollen documented in this encounter [facility] 02-10-2025 Note HNO ID: [id number] Author: BELINDA JASON PA-C Service: ? Author Type: Physician Radio Producer Type: Progress Notes Filed: 02/11/2025 10:51 Note Text: Belinda Jason PA-C Department of Orthopaedics Orthopaedics [address] [facility] [address] Dept: [phone] Dept February 10, 2025 CHIEF COMPLAINT: Follow Up of the Left Knee and Follow Up of the Right Knee Mrs. Roman Kuhn is a 74 year old female who presents today requesting a left knee corticosteroid injection, last bilateral knee corticosteroid injections were 16 weeks ago, right knee is still feeling good, left knee is starting to become somewhat tender medially. She is requesting a repeat left knee injection. Scheduled for viscosupplementation this coming April in both knees. She is also complaining of pain in her right shoulder, pain is mostly lateral. She does see a chiropractor for the shoulder, she reports that the shoulder had been put back into place. But is still bothering her a bit. She has full and active range of motion in the shoulder but notes some tightness with reaching overhead. She has not had any recent x-rays of the shoulder. Denies any new injuries to the shoulder. 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 She does have some old x-rays of the shoulder from 2018 showing calcific tendinitis of the right rotator cuff. We discussed getting some updated x-rays today. Will proceed with a right shoulder subacromial corticosteroid injection today as well. Will continue to monitor patient for Calcific tendinitis of right shoulder (primary encounter diagnosis) Primary osteoarthritis of left knee, patient to schedule visit as per follow up discussed. Mrs. Roman Kuhn was advised as to contrast therapies and/or to take analgesics/anti-inflammatories as needed and all contraindications were reviewed. OBJECTIVE: Mrs. Roman Kuhn is a pleasant 74 year old in no apparent distress. Gen:There were no vitals taken for this visit. nl development, non obese, no deformities ENT: Normocephalic, normal hearing, moist mucosa CV: Pulses:Radial= 2+ and symmetric, capillary refill < 2 secs, no peripheral edema/varicosities Skin: no rash, bruising or lesions. Good turgor. Psych: cooperative and appropriate, alert and oriented x 3, good mood and affect. Musculoskeletal: Supple range of motion of the cervical spine without pain. Spurling signs are negative. No atrophy of the deltoid and shoulder musculature. Right shoulder is nontender to palpation over the SC joint, clavicle and AC joint. No tenderness to palpation over the posterior shoulder, mildly tender at anterior lateral corner of the shoulder and greater tuberosity. Nontender at the bicipital groove and coracoid. Active range of motion is 155 degrees of forward elevation, 45 degrees external rotation, and internal rotation to the low lumbar spine. Passive range of motion is 155 degrees, 50 degrees, respectively. No laxity with anterior and posterior stress. Positive Neer and negative Nevarez impingement signs. 5/5 strength with supraspinatus, infraspinatus and subscapularis. Sensation is intact in the axillary, radial, median and ulnar nerve distribution In addition to the comprehensive evaluation, assessment and plan outlined above, and as a distinct and separate element to the visit today, separate from the separate complaint of right shoulder pain, we have made the determination to proceed with an injection to aid in the management of the patient's condition. We discussed the risks, benefits, alternatives and expected outcomes of this injection in detail, and the patient agreed to proceed. The procedure was performed as detailed below. Large Joint Arthro/Inj: L knee joint 02/10/2025 11:14 AM The procedure site was prepped in the usual sterile fashion. Site: L knee joint Medications: 6 mg betamethasone acetate-betamethasone sodium phosphate 6 mg/mL Anesthetics: 5 mL lidocaine (PF) 10 mg/mL (1 %) Outcome: Tolerated well, no immediate complications Post-injection instructions were reviewed with the patient and the patient voiced understanding of these instructions. Informed Consent Consent Obtained: Verbal [place] Protocol A moment to CARE was completed. SIGN IN Sign in communication not applicable due to emergent procedure. Personnel directly involved with the procedure wore the appropriate PPE. Special Equipment: N/A Patient/Surrogate Stated/Verified: Patient name, Date of , Relevant allergies and Intended procedure TIME OUT Relevant labs, photos, and/or imaging studies have been reviewed. Consent documented and matches the intended procedure. Correct side/site marked and visible. Medications require (more content not included)... [facility] 02-10-2025 History of Present illness Narrative Associated Order(s): Large Joint Arthro/Inj: L knee joint; Large Joint Arthro/Inj: R subacromial bursa Post-Procedure Diagnose(s): Primary osteoarthritis of left knee; Calcific tendinitis of right shoulder Belinad Jason PA-C Department of Orthopaedics Orthopaedics [address] [facility] [address] Dept: [phone] Dept February 10, 2025 CHIEF COMPLAINT: Follow Up of the Left Knee and Follow Up of the Right Knee Mrs. Roman Kuhn is a 74 year old female who presents today requesting a left knee corticosteroid injection, last bilateral knee corticosteroid injections were 16 weeks ago, right knee is still feeling good, left knee is starting to become somewhat tender medially. She is requesting a repeat left knee injection. Scheduled for viscosupplementation this coming April in both knees. She is also complaining of pain in her right shoulder, pain is mostly lateral. She does see a chiropractor for the shoulder, she reports that the shoulder had been put back into place. But is still bothering her a bit. She has full and active range of motion in the shoulder but notes some tightness with reaching overhead. She has not had any recent x-rays of the shoulder. Denies any new injuries to the shoulder. 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 She does have some old x-rays of the shoulder from 2018 showing calcific tendinitis of the right rotator cuff. We discussed getting some updated x-rays today. Will proceed with a right shoulder subacromial corticosteroid injection today as well. Will continue to monitor patient for Calcific tendinitis of right shoulder (primary encounter diagnosis) Primary osteoarthritis of left knee, patient to schedule visit as per follow up discussed. Mrs. Roman Kuhn was advised as to contrast therapies and/or to take analgesics/anti-inflammatories as needed and all contraindications were reviewed. OBJECTIVE: Mrs. Roman Kuhn is a pleasant 74 year old in no apparent distress. Gen:There were no vitals taken for this visit. nl development, non obese, no deformities ENT: Normocephalic, normal hearing, moist mucosa CV: Pulses:Radial= 2+ and symmetric, capillary refill < 2 secs, no peripheral edema/varicosities Skin: no rash, bruising or lesions. Good turgor. Psych: cooperative and appropriate, alert and oriented x 3, good mood and affect. Musculoskeletal: Supple range of motion of the cervical spine without pain. Spurling signs are negative. No atrophy of the deltoid and shoulder musculature. Right shoulder is nontender to palpation over the SC joint, clavicle and AC joint. No tenderness to palpation over the posterior shoulder, mildly tender at anterior lateral corner of the shoulder and greater tuberosity. Nontender at the bicipital groove and coracoid. Active range of motion is 155 degrees of forward elevation, 45 degrees external rotation, and internal rotation to the low lumbar spine. Passive range of motion is 155 degrees, 50 degrees, respectively. No laxity with anterior and posterior stress. Positive Neer and negative Nevarez impingement signs. 5/5 strength with supraspinatus, infraspinatus and subscapularis. Sensation is intact in the axillary, radial, median and ulnar nerve distribution In addition to the comprehensive evaluation, assessment and plan outlined above, and as a distinct and separate element to the visit today, separate from the separate complaint of right shoulder pain, we have made the determination to proceed with an injection to aid in the management of the patient's condition. We discussed the risks, benefits, alternatives and expected outcomes of this injection in detail, and the patient agreed to proceed. The procedure was performed as detailed below. Large Joint Arthro/Inj: L knee joint 02/10/2025 11:14 AM The procedure site was prepped in the usual sterile fashion. Site: L knee joint Medications: 6 mg betamethasone acetate-betamethasone sodium phosphate 6 mg/mL Anesthetics: 5 mL lidocaine (PF) 10 mg/mL (1 %) Outcome: Tolerated well, no immediate complications Post-injection instructions were reviewed with the patient and the patient voiced understanding of these instructions. Informed Consent Consent Obtained: Verbal [place] Protocol A moment to CARE was completed. SIGN IN Sign in communication not applicable due to emergent procedure. Personnel directly involved with the procedure wore the appropriate PPE. Special Equipment: N/A Patient/Surrogate Stated/Verified: Patient name, Date of , Relevant allergies and Intended procedure TIME OUT Relevant labs, photos, and/or imaging studies have been reviewed. Consent documented and matches the intended procedure. Correct side/site marked and visible. Medications required for procedure verified. No fire risk assessment and interventions applicable. No implant(s) inserted. SIGN OUT No specimen collected. All instruments, equipment, possible retained foreign bodies accounted for. No post-procedure POC communication to the patient's multidisciplinary team (including the bedside nurse for hospitalized patients) applicable. Large Joint Arthro/Inj: R subacromial bursa 02/10/2025 11:15 AM The procedure site was prepped in the usual sterile fashion. Site: R subacromial bursa Medications: 6 mg betamethasone acetate-betamethasone sodium phosphate 6 mg/mL Anesthetics: 5 mL lidocaine (PF) 10 mg/mL (1 %) Outcome: Tolerated well, no immediate complications Post-injection instructions were reviewed with the patient and the patient voiced understanding of these instructions. Informed Consent Consent Obtained: Verbal [place] Protocol A moment to CARE was completed. SIGN IN Sign in communication not applicable due to emergent procedure. Personnel directly involved with the procedure wore the appropriate PPE. Special Equipment: N/A Patient/Surrogate Stated/Verified: Patient name, Date of , Relevant allergies and Intended procedure TIME OUT Relevant labs, photos, and/or imaging studies have been reviewed. Consent documented and matches the intended procedure. Correct side/site marked and visible. Medications required for procedure verified. No fire risk assessment and interventions applicable. No implant(s) inserted. SIGN OUT No specimen collected. All instruments, equipment, possible retained foreign bodies accounted for. No post-procedure POC communication to the patient's multidisciplinary team (including the bedside nurse for hospitalized patients) applicable. Imaging: Ordered today. Supporting Subjective Information Below: Past Surgical History: PAST SURGICAL HISTORY Procedure Laterality Date ABDOMINAL SURGERY HX BIOPSY BREAST OPEN INCISIONAL 08/14/2017 left stereotactic breast biopsy w/clip placement [facility] COLONOSCOPY N/A 09/17/2024 COLONOSCOPY FLX DX W/COLLJ SPEC WHEN PFRMD 12/18/2003 Colonoscopy COLONOSCOPY FLX DX W/COLLJ SPEC WHEN PFRMD 03/11/2008 Colonoscopy COLONOSCOPY FLX DX W/COLLJ SPEC WHEN PFRMD 07/19/2012 Colonoscopy COLONOSCOPY FLX DX W/COLLJ SPEC WHEN PFRMD 11/13/2018 Colonoscopy COSMETIC ASSESSMENT EGD 09/01/2020 EGD W/O [facility] SPEC VARICIES INJ N/A 09/17/2024 ESOPHAGOGASTRODUODENOSCOPY TRANSORAL DIAGNOSTIC 03/12/2012 EGD ESOPHAGOGASTRODUODENOSCOPY TRANSORAL DIAGNOSTIC 11/13/2018 EGD EYE SURGERY HX LAPS SURG CHOLECYSTECTOMY W/CHOLANGIOGRAPHY 04/17/2012 Normal IOC PAST SURGICAL HISTORY OF hemmorhoidectomy PAST SURGICAL HISTORY OF 1969 ventral hernia repair - [place] - unknown for mesh PAST SURGICAL HISTORY OF age 27 partial hysterectomy PAST SURGICAL HISTORY OF 1998 benign breast bx PAST SURGICAL HISTORY OF 07/2002 lasik eye surgery PAST SURGICAL HISTORY OF 07/2006 recheck and enhancement on eye surgery PAST SURGICAL HISTORY OF Bilateral 2019 OD - 08/21, OS - 09/[address] Stock. Cataract implants RHINP PRIM LAT&ALAR CRTLGS&/ELVTN NASAL TI Rhinoplasty x 2 VAGINAL HYSTERECTOMY Medications: CURRENT MEDICATIONS[1] Allergies: Ceclor [Cefaclor], Avelox [Moxifloxacin Hcl], Bactrim [Sulfamethoxazole], Biaxin [Clarithromycin], Celexa [Citalopram Hydrobromide], Cipro [Ciprofloxacin], Entex [Phenylephrine-Guaifenesin], Erythromycin, Levsinex [Hyoscyamine Sulfate], Lipitor [Atorvastatin Calcium], Naldecon Senior Dx [Dextromethorphan-Guaifenesin], Parafon Forte Dsc [Chlorzoxazone], Paxil [Paroxetine Hcl], Sulfa (Sulfonamide Antibiotics), Suprax [Cefixime], Urispas [Flavoxate Hcl], and Voltaren [Diclofenac Sodium] ROS: General (negative for fatigue, malaise, weight loss/gain) HEENT (negative for headache, earache, recent vision changes, sinus pain, sore throat) Respiratory (no recent shortness of breath, hemoptysis) CV (negative for chest tightness, palpitations) Musculoskeletal (see HPI) Psych (no depression, anxiety) This note was partially generated using [employer] voice recognition system, and there may be some incorrect words, spellings, and punctuation that were not noted in checking the note before saving. Belinda Jason PA-C [1] Current Outpatient Medications Medication Sig colestipol (COLESTID) 1 gram tablet Take 1 tablet by mouth two times a day. pravastatin (PRAVACHOL) 40 mg tablet Take 1 tablet by mouth once daily. famotidine (PEPCID) 20 mg tablet Take 1 tablet by mouth once daily. Taking 2 tablets by mouth once daily before bedtime. pantoprazole DR (PROTONIX) 40 mg tablet Take 1 tablet by mouth two times a day. Take on empty stomach, 1/2 hr before meal. levothyroxine (SYNTHROID) 125 mcg tablet Take 1 tablet by mouth once daily. Take on empty stomach. For thyroid albuterol HFA (VENTOLIN HFA) 90 mcg/actuation inhaler Inhale 2 Puffs as instructed every 6 hours as needed for wheezing/shortness of breath. tretinoin (RETIN-A) 0.025 % topical cream Apply 1 application to affected area daily at bedtime. BENEFIBER, WHEAT DEXTRIN, ORAL Take 2 teaspoonsful by mouth three times a day. polyethylene glycol 3350 (MIRALAX, GLYCOLAX) 17 gram/dose powder Take 17 g by mouth twice daily. triamcinolone acetonide (NASACORT) 55 mcg nasal inhaler Use 2 Sprays in the nose once daily. aspirin(ECOTRIN LOW STRENGTH 81 MG TAB) Take one(1) tablet daily. ONE DAILY MULTI-VITAMIN TAB Take one(1) tablet daily. No current facility-administered medications for this visit. AMB ROOMING INTAKE FLOWSHEET DATA Pain Pain Level: 5 Pain Location: Knee-Left Description: Sharp Duration Amount of Time: (ongoing) Frequency: Intermittent Intervention/Comfort measure: Other: See comment (muscle rub) documented in this encounter [facility] 02-10-2025 Note HNO ID: [id number] Author: LEEANNE MONTEMAYOR MA Service: ? Author Type: Visual Journalist Type: Progress Notes Filed: 02/11/2025 10:51 Note Text: AMB ROOMING INTAKE FLOWSHEET DATA Pain Pain Level: 5 Pain Location: Knee-Left Description: Sharp Duration Amount of Time: (ongoing) Frequency: Intermittent Intervention/Comfort measure: Other: See comment (muscle rub) [facility] 01-30-2025 Telephone encounter Note OK to refill as ordered Pepe Reyes MD [facility] 01-30-2025 Miscellaneous Notes OK to refill as ordered Pepe Reyes MD Prescription Refill Information The patient has been identified by name and date of : Yes Caregiver verified no other encounters exist for this prescription request: Yes Caregiver confirmed with patient/requestor that no other refills are due, in the near future, with this provider at this time: Yes The last office visit in the department: 12/23/2024 Does the patient have a future office visit with this provider/department: Yes Requested Prescriptions Pending Prescriptions Disp Refills colestipol (COLESTID) 1 gram tablet 180 tablet 3 Sig: Take 1 tablet by mouth two times a day. Maryse Jain January 30, 2025 12:17 PM documented in this encounter [facility] 01-30-2025 Telephone encounter Note Prescription Refill Information The patient has been identified by name and date of : Yes Caregiver verified no other encounters exist for this prescription request: Yes Caregiver confirmed with patient/requestor that no other refills are due, in the near future, with this provider at this time: Yes The last office visit in the department: 12/23/2024 Does the patient have a future office visit with this provider/department: Yes Requested Prescriptions Pending Prescriptions Disp Refills colestipol (COLESTID) 1 gram tablet 180 tablet 3 Sig: Take 1 tablet by mouth two times a day. Maryse Jain January 30, 2025 12:17 PM [facility] 01-27-2025 Telephone encounter Note The following approved medication requests have been transmitted electronically. Requested Prescriptions Pending Prescriptions Disp Refills pravastatin (PRAVACHOL) 40 mg tablet 90 tablet 3 Sig: Take 1 tablet by mouth once daily. Rob Cardenas APRN.CNP [facility] 01-27-2025 Miscellaneous Notes The following approved medication requests have been transmitted electronically. Requested Prescriptions Pending Prescriptions Disp Refills pravastatin (PRAVACHOL) 40 mg tablet 90 tablet 3 Sig: Take 1 tablet by mouth once daily. Rob Cardenas APRN.CNP The patient has been identified by name and date of : Yes Caregiver verified no other encounters exist for this prescription request: Yes Caregiver confirmed with patient/requestor that no other refills are due, in the near future, with this provider at this time: Yes The last office visit in the department: 12/23/2024 Does the patient have a future office visit with this provider/department: Yes 03/18/2025 Requested Prescriptions Pending Prescriptions Disp Refills pravastatin (PRAVACHOL) 40 mg tablet 90 tablet 3 Sig: Take 1 tablet by mouth once daily. Corina Cloud LPN January 27, 2025 10:10 AM documented in this encounter [facility] 01-27-2025 Telephone encounter Note The patient has been identified by name and date of : Yes Caregiver verified no other encounters exist for this prescription request: Yes Caregiver confirmed with patient/requestor that no other refills are due, in the near future, with this provider at this time: Yes The last office visit in the department: 12/23/2024 Does the patient have a future office visit with this provider/department: Yes 03/18/2025 Requested Prescriptions Pending Prescriptions Disp Refills pravastatin (PRAVACHOL) 40 mg tablet 90 tablet 3 Sig: Take 1 tablet by mouth once daily. Corina Clodu LPN January 27, 2025 10:10 AM [facility] 12-26-2024 Telephone encounter Note Pt calling in with update for Tangela Hinojosa. Pt saw her in the office this past Monday the for an insect bite on left nostril. Tangela put pt on antibiotics. Pt states the area is smaller but still hard and painful-looks like a boil. She feels it has improved some. Pt states she called and made an appt with [facility] for MondayDecember 31. That office is asking for office notes from pt's visit here on Monday. Printed & faxed as requested to [phone]. [facility] 12-26-2024 Miscellaneous Notes Pt calling in with update for Tangela Hinojosa. Pt saw her in the office this past Monday the for an insect bite on left nostril. Tangela put pt on antibiotics. Pt states the area is smaller but still hard and painful-looks like a boil. She feels it has improved some. [facility] That office is asking for office notes from pt's visit here on Monday. Printed & faxed as requested to [phone]. documented in this encounter [facility] 12-23-2024 Note HNO ID: [id number] Author: TANGELA HINOJOSA APRN.CANCER REGISTRAR Service: ? Author Type: Nurse Practitioner Type: Progress Notes Filed: 12/23/2024 10:10 Note Text: Chief Complaint Patient presents with: Insect Bite: X 4 days on left side of nose HPI Roman Kuhn is a 74 year old female who presents here today for Above Complaints.. Patient presents for insect bite to left nostril. Reports she was bit Monday night and area has gotten hard, warm and swollen. Past medical history, appointments, medications, allergies reviewed. Previous Medical History PAST MEDICAL HISTORY Diagnosis Date Abdominal pain, epigastric Allergic rhinitis, cause unspecified Allergic rhinitis Esophageal reflux Bile reflux gastritis IBS (irritable bowel syndrome) constipation primarily Other and unspecified hyperlipidemia Unspecified hypothyroidism Previous Surgical History PAST SURGICAL HISTORY Procedure Laterality Date ABDOMINAL SURGERY HX BIOPSY BREAST OPEN INCISIONAL 08/14/2017 left stereotactic breast biopsy w/clip placement [facility] COLONOSCOPY N/A 09/17/2024 COLONOSCOPY FLX DX W/COLLJ SPEC WHEN PFRMD 12/18/2003 Colonoscopy COLONOSCOPY FLX DX W/COLLJ SPEC WHEN PFRMD 03/11/2008 Colonoscopy COLONOSCOPY FLX DX W/COLLJ SPEC WHEN PFRMD 07/19/2012 Colonoscopy COLONOSCOPY FLX DX W/COLLJ SPEC WHEN PFRMD 11/13/2018 Colonoscopy COSMETIC ASSESSMENT EGD 09/01/2020 EGD W/O [facility] SPEC VARICIES INJ N/A 09/17/2024 ESOPHAGOGASTRODUODENOSCOPY TRANSORAL DIAGNOSTIC 03/12/2012 EGD ESOPHAGOGASTRODUODENOSCOPY TRANSORAL DIAGNOSTIC 11/13/2018 EGD EYE SURGERY HX LAPS SURG CHOLECYSTECTOMY W/CHOLANGIOGRAPHY 04/17/2012 Normal IOC PAST SURGICAL HISTORY OF hemmorhoidectomy PAST SURGICAL HISTORY OF 1969 ventral hernia repair - [place] - unknown for mesh PAST SURGICAL HISTORY OF age 27 partial hysterectomy PAST SURGICAL HISTORY OF 1998 benign breast bx PAST SURGICAL HISTORY OF 07/2002 lasik eye surgery PAST SURGICAL HISTORY OF 07/2006 recheck and enhancement on eye surgery PAST SURGICAL HISTORY OF Bilateral 2019 OD - 08/21, OS - 09/[address] Stock. Cataract implants RHINP PRIM LATANDALAR CRTLGSAND/ELVTN NASAL TI Rhinoplasty x 2 VAGINAL HYSTERECTOMY Family History FAMILY HISTORY Problem Relation Age of Onset Prostate Cancer Father Coronary Artery Disease Father late in life; enlarged heart; smoked Heart Mother valve, age 81 Colon Cancer Other none Diabetes Other none Patient Allergies ALLERGIES Allergen Reactions Ceclor [Cefaclor] ER for anaphylaxis Avelox [Moxifloxaci* Intolerance Bactrim [Sulfametho* Unknown Insides were raging Biaxin [Clarithromy* Celexa [Citalopram * Unknown Cipro [Ciprofloxaci* Entex [Phenylephrin* Erythromycin Levsinex [Hyoscyami* Lipitor [Atorvastat* Naldecon Senior Dx * Parafon Forte Dsc [* Paxil [Paroxetine H* Sulfa (Sulfonamide * Other: See Comments Suprax [Cefixime] Urispas [Flavoxate * Voltaren [Diclofena* Current Medications Current Outpatient Medications on File Prior to Visit Medication Sig famotidine (PEPCID) 20 mg tablet Take 1 tablet by mouth once daily. Taking 2 tablets by mouth once daily before bedtime. colestipol (COLESTID) 1 gram tablet Take 1 tablet by mouth two times a day. pantoprazole DR (PROTONIX) 40 mg tablet Take 1 tablet by mouth two times a day. Take on empty stomach, 1/2 hr before meal. levothyroxine (SYNTHROID) 125 mcg tablet Take 1 tablet by mouth once daily. Take on empty stomach. For thyroid albuterol HFA (VENTOLIN HFA) 90 mcg/actuation inhaler Inhale 2 Puffs as instructed every 6 hours as needed for wheezing/shortness of breath. tretinoin (RETIN-A) 0.025 % topical cream Apply 1 application to affected area daily at bedtime. pravastatin (PRAVACHOL) 40 mg tablet Take 1 tablet by mouth once daily. BENEFIBER, WHEAT DEXTRIN, ORAL Take 2 teaspoonsful by mouth three times a day. polyethylene glycol 3350 (MIRALAX, GLYCOLAX) 17 gram/dose powder Take 17 g by mouth twice daily. triamcinolone acetonide (NASACORT) 55 mcg nasal inhaler Use 2 Sprays in the nose once daily. aspirin(ECOTRIN LOW STRENGTH 81 MG TAB) Take one(1) tablet daily. ONE DAILY MULTI-VITAMIN TAB Take one(1) tablet daily. No current facility-administered medications on file prior to visit. Social History Social History Tobacco Use Smoking status: Every Day Current packs/day: 0.75 Average packs/day: 0.8 packs/day for 56.0 years (42.0 ttl pk-yrs) Types: Cigarettes Smokeless tobacco: Never Vaping Use Vaping status: Never Used Substance Use Topics Alcohol use: Yes Comment: occasionally Drug use: No Review of Symptoms REVIEW OF SYSTEMS SEE HPI EXAM: BP 123/74 Pulse 116 Wt 55 kg (121 lb 4.1 oz) BMI 22.18 kg/m? General Appearance: Well appearing, alert, in no acute distress, well-hydrated, well nourished. Nose/Sinuses: Positive findings: left nose red, warm and swollen. Area firm, (more content not included)... [facility] 12-23-2024 History of Present illness Narrative Chief Complaint Patient presents with: Insect Bite: X 4 days on left side of nose HPI Roman Kuhn is a 74 year old female who presents here today for Above Complaints.. Patient presents for insect bite to left nostril. Reports she was bit Monday night and area has gotten hard, warm and swollen. Past medical history, appointments, medications, allergies reviewed. Previous Medical History PAST MEDICAL HISTORY Diagnosis Date Abdominal pain, epigastric Allergic rhinitis, cause unspecified Allergic rhinitis Esophageal reflux Bile reflux gastritis IBS (irritable bowel syndrome) constipation primarily Other and unspecified hyperlipidemia Unspecified hypothyroidism Previous Surgical History PAST SURGICAL HISTORY Procedure Laterality Date ABDOMINAL SURGERY HX BIOPSY BREAST OPEN INCISIONAL 08/14/2017 left stereotactic breast biopsy w/clip placement [facility] COLONOSCOPY N/A 09/17/2024 COLONOSCOPY FLX DX W/COLLJ SPEC WHEN PFRMD 12/18/2003 Colonoscopy COLONOSCOPY FLX DX W/COLLJ SPEC WHEN PFRMD 03/11/2008 Colonoscopy COLONOSCOPY FLX DX W/COLLJ SPEC WHEN PFRMD 07/19/2012 Colonoscopy COLONOSCOPY FLX DX W/COLLJ SPEC WHEN PFRMD 11/13/2018 Colonoscopy COSMETIC ASSESSMENT EGD 09/01/2020 EGD W/O [facility] SPEC VARICIES INJ N/A 09/17/2024 ESOPHAGOGASTRODUODENOSCOPY TRANSORAL DIAGNOSTIC 03/12/2012 EGD ESOPHAGOGASTRODUODENOSCOPY TRANSORAL DIAGNOSTIC 11/13/2018 EGD EYE SURGERY HX LAPS SURG CHOLECYSTECTOMY W/CHOLANGIOGRAPHY 04/17/2012 Normal IOC PAST SURGICAL HISTORY OF hemmorhoidectomy PAST SURGICAL HISTORY OF 1969 ventral hernia repair - [place] - unknown for mesh PAST SURGICAL HISTORY OF age 27 partial hysterectomy PAST SURGICAL HISTORY OF 1998 benign breast bx PAST SURGICAL HISTORY OF 07/2002 lasik eye surgery PAST SURGICAL HISTORY OF 07/2006 recheck and enhancement on eye surgery PAST SURGICAL HISTORY OF Bilateral 2018 OD - 08/21, OS - 09/[address] Stock. Cataract implants RHINP PRIM LAT&ALAR CRTLGS&/ELVTN NASAL TI Rhinoplasty x 2 VAGINAL HYSTERECTOMY Family History FAMILY HISTORY Problem Relation Age of Onset Prostate Cancer Father Coronary Artery Disease Father late in life; enlarged heart; smoked Heart Mother valve, age 81 Colon Cancer Other none Diabetes Other none Patient Allergies ALLERGIES Allergen Reactions Ceclor [Cefaclor] ER for anaphylaxis Avelox [Moxifloxaci* Intolerance Bactrim [Sulfametho* Unknown Insides were raging Biaxin [Clarithromy* Celexa [Citalopram * Unknown Cipro [Ciprofloxaci* Entex [Phenylephrin* Erythromycin Levsinex [Hyoscyami* Lipitor [Atorvastat* Naldecon Senior Dx * Parafon Forte Dsc [* Paxil [Paroxetine H* Sulfa (Sulfonamide * Other: See Comments Suprax [Cefixime] Urispas [Flavoxate * Voltaren [Diclofena* Current Medications Current Outpatient Medications on File Prior to Visit Medication Sig famotidine (PEPCID) 20 mg tablet Take 1 tablet by mouth once daily. Taking 2 tablets by mouth once daily before bedtime. colestipol (COLESTID) 1 gram tablet Take 1 tablet by mouth two times a day. pantoprazole DR (PROTONIX) 40 mg tablet Take 1 tablet by mouth two times a day. Take on empty stomach, 1/2 hr before meal. levothyroxine (SYNTHROID) 125 mcg tablet Take 1 tablet by mouth once daily. Take on empty stomach. For thyroid albuterol HFA (VENTOLIN HFA) 90 mcg/actuation inhaler Inhale 2 Puffs as instructed every 6 hours as needed for wheezing/shortness of breath. tretinoin (RETIN-A) 0.025 % topical cream Apply 1 application to affected area daily at bedtime. pravastatin (PRAVACHOL) 40 mg tablet Take 1 tablet by mouth once daily. BENEFIBER, WHEAT DEXTRIN, ORAL Take 2 teaspoonsful by mouth three times a day. polyethylene glycol 3350 (MIRALAX, GLYCOLAX) 17 gram/dose powder Take 17 g by mouth twice daily. triamcinolone acetonide (NASACORT) 55 mcg nasal inhaler Use 2 Sprays in the nose once daily. aspirin(ECOTRIN LOW STRENGTH 81 MG TAB) Take one(1) tablet daily. ONE DAILY MULTI-VITAMIN TAB Take one(1) tablet daily. No current facility-administered medications on file prior to visit. Social History Social History Tobacco Use Smoking status: Every Day Current packs/day: 0.75 Average packs/day: 0.8 packs/day for 56.0 years (42.0 ttl pk-yrs) Types: Cigarettes Smokeless tobacco: Never Vaping Use Vaping status: Never Used Substance Use Topics Alcohol use: Yes Comment: occasionally Drug use: No Review of Symptoms REVIEW OF SYSTEMS SEE HPI EXAM: BP 123/74 Pulse 116 Wt 55 kg (121 lb 4.1 oz) BMI 22.18 kg/m General Appearance: Well appearing, alert, in no acute distress, well-hydrated, well nourished. Nose/Sinuses: Positive findings: left nose red, warm and swollen. Area firm, non-tender. Health Maintenance List Shingrix Vaccine(2 of 3) due on 08/08/2012 Covid-19 Vaccine(2023- season) due on 03/03/2024 Advance Directive Discussion due on 07/03/2024 Medicare Advantage Annual Wellness Visit Never done Lung Cancer Screening due on 11/19/2024 Depression Screening due on 02/25/2025 Anxiety Screening due on 02/25/2025 Annual PCP Team Chronic Disease Visit due on 11/15/2025 Diabetes Screening due on 08/26/2027 DTaP,Tdap,Td Vaccine(3 - Td or Tdap) due on 12/13/2029 Bone Density Screening Completed Influenza Vaccine Completed RSV Vaccine Completed Hepatitis C Screening Completed Pneumococcal Vaccine: 50+ Completed Mammogram Screening Discontinued Colorectal Cancer Screening Discontinued ASSESSMENT/PLAN: 1. Insect bite of nose, initial encounter - ICD9: 910.4, E906.4, ICD10: S00.36XA, W57.XXXA - Follow up if area does not improve or gets worse on antibiotics. - DOXYCYCLINE MONOHYDRATE 100 MG TABLET Tangela Hinojosa APRN.CNP documented in this encounter [facility] 12-03-2024 Note HNO ID: [id number] Author: ?, ?, ? Service: ? Author Type: ? Type: Progress Notes Filed: 12/03/2024 12:27 Note Text: POPULATION HEALTH NAVIGATION OUTREACH Action/FYI Patient outreach for Hcc gaps; AWV. Spoke with patient and declined at this time, states she is doing well. Updated appointment notes. Reason for Outreach Care Gap/HCC or Scheduling Wellness Visits Care Gaps due: Medicare Annual Wellness Visit Patient Contacted: Spoke to patient/parent/or legal guardian Patient identified by name and : Yes Care Gap/HCC/Scheduling Wellness actions taken: Patient declined: Doesn't feel it's necessary Updated appointment note Navigation Signature: Zora Balderrama December 03, 2024 12:19 PM [facility] 12-03-2024 History of Present illness Narrative POPULATION HEALTH NAVIGATION OUTREACH Action/FYI Patient outreach for Hcc gaps; AWV. Spoke with patient and declined at this time, states she is doing well. Updated appointment notes. Reason for Outreach Care Gap/HCC or Scheduling Wellness Visits Care Gaps due: Medicare Annual Wellness Visit Patient Contacted: Spoke to patient/parent/or legal guardian Patient identified by name and : Yes Care Gap/HCC/Scheduling Wellness actions taken: Patient declined: Doesn't feel it's necessary Updated appointment note Navigation Signature: Zora Balderrama December 03, 2024 12:19 PM documented in this encounter [facility] 12-03-2024 Note Patient Outreach (WHIT OSMAN) ROMAN KUHN ([id number]) 1950 F Date Time Provider Department 12/03/24 PEPE REYES During your visit today, we recorded the following information about you: Zora Pugh 12/03/2024 12:27 PM Signed POPULATION HEALTH NAVIGATION OUTREACH Action/FYI Patient outreach for Hcc gaps; AWV. Spoke with patient and declined at this time, states she is doing well. Updated appointment notes. Reason for Outreach Care Gap/HCC or Scheduling Wellness Visits Care Gaps due: Medicare Annual Wellness Visit Patient Contacted: Spoke to patient/parent/or legal guardian Patient identified by name and : Yes Care Gap/HCC/Scheduling Wellness actions taken: Patient declined: Doesn't feel it's necessary Updated appointment note Navigation Signature: Zora Balderrama December 03, 2024 12:19 PM Allergies As of Date: 12/03/2024 Noted Allergy Reaction CECLOR (CEFACLOR) 04/27/2005 Comments: ER for anaphylaxis AVELOX (MOXIFLOXACIN HCL) 03/05/2010 5 - Intolerance BACTRIM (SULFAMETHOXAZOLE) 12/20/2012 16 - Unknown Comments: Insides were raging BIAXIN (CLARITHROMYCIN) 04/27/2005 CELEXA (CITALOPRAM HYDROBROMIDE) 05/16/2005 16 - Unknown CIPRO (CIPROFLOXACIN) 04/27/2005 ENTEX (PHENYLEPHRINE-GUAIFENESIN) 05/16/2005 ERYTHROMYCIN 04/27/2005 LEVSINEX (HYOSCYAMINE SULFATE) 05/16/2005 LIPITOR (ATORVASTATIN CALCIUM) 05/16/2005 NALDECON SENIOR DX (DEXTROMETHORP*04/27/2005 PARAFON FORTE DSC (CHLORZOXAZONE) 05/16/2005 PAXIL (PAROXETINE HCL) 05/16/2005 SULFA (SULFONAMIDE ANTIBIOTICS) 12/17/2012 14 - Other: See Comments SUPRAX (CEFIXIME) 04/27/2005 URISPAS (FLAVOXATE HCL) 05/16/2005 VOLTAREN (DICLOFENAC SODIUM) 05/16/2005 Date Reviewed: 11/15/2024 Reviewed by: Julieta Mohan MA - Fully Assessed Reason for Visit: Population Health Navigation Outreach [[id number]] Cmt: Luis Fernando Saleemjonathanrachael Norton Prescriptions as of 12/03/2024 - famotidine (PEPCID) 20 mg tablet Take 1 tablet by mouth once daily. Taking 2 tablets by mouth once daily before bedtime. - colestipol (COLESTID) 1 gram tablet Take 1 tablet by mouth two times a day. - pantoprazole DR (PROTONIX) 40 mg tablet Take 1 tablet by mouth two times a day. Take on empty stomach, 1/2 hr before meal. - levothyroxine (SYNTHROID) 125 mcg tablet Take 1 tablet by mouth once daily. Take on empty stomach. For thyroid - albuterol HFA (VENTOLIN HFA) 90 mcg/actuation inhaler Inhale 2 Puffs as instructed every 6 hours as needed for wheezing/shortness of breath. - tretinoin (RETIN-A) 0.025 % topical cream Apply 1 application to affected area daily at bedtime. - pravastatin (PRAVACHOL) 40 mg tablet Take 1 tablet by mouth once daily. - BENEFIBER, WHEAT DEXTRIN, ORAL Take 2 teaspoonsful by mouth three times a day. - polyethylene glycol 3350 (MIRALAX, GLYCOLAX) 17 gram/dose powder Take 17 g by mouth twice daily. - triamcinolone acetonide (NASACORT) 55 mcg nasal inhaler Use 2 Sprays in the nose once daily. - aspirin(ECOTRIN LOW STRENGTH 81 MG TAB) Take one(1) tablet daily. - ONE DAILY MULTI-VITAMIN TAB Take one(1) tablet daily. Meds Comments as of 09/02/2024: Uses Benefiber daily with Miralax. Does take daily Probiotic. Problem List As Of Date 12/03/2024 Noted Resolved Hyperlipidemia [E78.5] Seasonal allergic rhinitis [J30.2] Esophageal Reflux [K21.9] Abdominal Pain, Generalized [R10.84] 12/19/2007 09/02/2009 Unspecified Constipation [K59.00] 09/02/2009 Abdominal Pain, Left Lower Quadrant [R10.32] 03/11/2008 09/02/2009 Diarrhea [R19.7] 03/11/2008 09/02/2009 Routine Gynecological Examination [Z01.419] 09/02/2009 Class: Chronic Hypothyroidism [E03.9] 09/07/2009 Osteopenia [M85.80] 11/24/2010 Abdominal pain, epigastric [R10.13] 03/12/2012 Acute gastritis without mention of hemorrhage [*03/12/2012 Nausea alone [R11.0] 03/12/2012 Biliary dyskinesia [K82.8] 03/29/2012 Abdominal pain, unspecified site [R10.9] 03/29/2012 Incisional hernia [K43.2] 03/29/2012 Irritable bowel [K58.9] 12/17/2013 Viral URI [J06.9] 09/25/2019 Syncope and collapse [R55] 12/22/2017 Diagnosed: 06/22/2023 Encounter Status:Closed by ZORA PUGH on 12/03/24 [facility] 11-15-2024 History of Present illness Narrative Chief Complaint Patient presents with: Follow Up HPI Roman Kuhn is a 73 year old female who presents here today for follow up. Pt here to follow up on Bile/Reflux. This has been ongoing for 6 months with weight loss noted. Was going to cancel appt but thought she had to give a 24 hour notice. Wanted to f/u with findings from EGD, has bile reflux gastritis. Had EGD/Colonoscopy on 09/17/24. Colonoscopy had to be d/c due to poor prep. She follows with Gastro Dr. Friend at [facility]. Pt was able to f/u with GI, [facility] yesterday morning at 8:00 am, and they made some slight changes to her regimen. Was advised to start Pepcid 20 mg 2 tabs at bedtime before bed, Protonix 40 mg bid, and Colestipol 1 gram 1 tab po bid. They sent in a new Rx for her. Pt reports she started this regimen yesterday and woke up with her stomach feeling better. Burning from her throat to her bottom (butt) has improved. Asking if this is normal. Past medical history, appointments, medications, allergies reviewed. Previous Medical History PAST MEDICAL HISTORY Diagnosis Date Abdominal pain, epigastric Allergic rhinitis, cause unspecified Allergic rhinitis Esophageal reflux IBS (irritable bowel syndrome) constipation primarily Other and unspecified hyperlipidemia Unspecified hypothyroidism Previous Surgical History PAST SURGICAL HISTORY Procedure Laterality Date ABDOMINAL SURGERY HX BIOPSY BREAST OPEN INCISIONAL 08/14/2017 left stereotactic breast biopsy w/clip placement [facility] COLONOSCOPY FLX DX W/COLLJ SPEC WHEN PFRMD 12/18/2003 Colonoscopy COLONOSCOPY FLX DX W/COLLJ SPEC WHEN PFRMD 03/11/2008 Colonoscopy COLONOSCOPY FLX DX W/COLLJ SPEC WHEN PFRMD 07/19/2012 Colonoscopy COLONOSCOPY FLX DX W/COLLJ SPEC WHEN PFRMD 11/13/2018 Colonoscopy COSMETIC ASSESSMENT EGD 09/01/2020 ESOPHAGOGASTRODUODENOSCOPY TRANSORAL DIAGNOSTIC 03/12/2012 EGD ESOPHAGOGASTRODUODENOSCOPY TRANSORAL DIAGNOSTIC 11/13/2018 EGD EYE SURGERY HX LAPS SURG CHOLECYSTECTOMY W/CHOLANGIOGRAPHY 04/17/2012 Normal IOC PAST SURGICAL HISTORY OF hemmorhoidectomy PAST SURGICAL HISTORY OF 1969 ventral hernia repair - [place] - unknown for mesh PAST SURGICAL HISTORY OF age 27 partial hysterectomy PAST SURGICAL HISTORY OF 1998 benign breast bx PAST SURGICAL HISTORY OF 07/2002 lasik eye surgery PAST SURGICAL HISTORY OF 07/2006 recheck and enhancement on eye surgery PAST SURGICAL HISTORY OF Bilateral 2018 OD - 08/21, OS - 09/[address] Stock. Cataract implants RHINP PRIM LAT&ALAR CRTLGS&/ELVTN NASAL TI Rhinoplasty x 2 VAGINAL HYSTERECTOMY Family History FAMILY HISTORY Problem Relation Age of Onset Prostate Cancer Father Coronary Artery Disease Father late in life; enlarged heart; smoked Heart Mother valve, age 81 Colon Cancer Other none Diabetes Other none Patient Allergies ALLERGIES Allergen Reactions Ceclor [Cefaclor] ER for anaphylaxis Avelox [Moxifloxaci* Intolerance Bactrim [Sulfametho* Unknown Insides were raging Biaxin [Clarithromy* Celexa [Citalopram * Unknown Cipro [Ciprofloxaci* Entex [Phenylephrin* Erythromycin Levsinex [Hyoscyami* Lipitor [Atorvastat* Naldecon Senior Dx * Parafon Forte Dsc [* Paxil [Paroxetine H* Sulfa (Sulfonamide * Other: See Comments Suprax [Cefixime] Urispas [Flavoxate * Voltaren [Diclofena* Current Medications Current Outpatient Medications on File Prior to Visit Medication Sig famotidine (PEPCID) 20 mg tablet Take 1 tablet by mouth once daily. levothyroxine (SYNTHROID) 125 mcg tablet Take 1 tablet by mouth once daily. Take on empty stomach. For thyroid colestipol (COLESTID) 1 gram tablet Take 1 tablet by mouth once daily. pantoprazole DR (PROTONIX) 40 mg tablet Take 1 tablet by mouth daily before breakfast. Take on empty stomach, 1/2 hr before meal. albuterol HFA (VENTOLIN HFA) 90 mcg/actuation inhaler Inhale 2 Puffs as instructed every 6 hours as needed for wheezing/shortness of breath. tretinoin (RETIN-A) 0.025 % topical cream Apply 1 application to affected area daily at bedtime. pravastatin (PRAVACHOL) 40 mg tablet Take 1 tablet by mouth once daily. BENEFIBER, WHEAT DEXTRIN, ORAL Take 2 teaspoonsful by mouth three times a day. polyethylene glycol 3350 (MIRALAX, GLYCOLAX) 17 gram/dose powder Take 17 g by mouth twice daily. triamcinolone acetonide (NASACORT) 55 mcg nasal inhaler Use 2 Sprays in the nose once daily. aspirin(ECOTRIN LOW STRENGTH 81 MG TAB) Take one(1) tablet daily. ONE DAILY MULTI-VITAMIN TAB Take one(1) tablet daily. No current facility-administered medications on file prior to visit. Social History Social History Tobacco Use Smoking status: Every Day Current packs/day: 0.75 Average packs/day: 0.8 packs/day for 56.0 years (42.0 ttl pk-yrs) Types: Cigarettes Smokeless tobacco: Never Vaping Use Vaping status: Never Used Substance Use Topics Alcohol use: Yes Comment: occasionally Drug use: No EXAM: BP 120/72 (BP Site: Left Arm, BP Position: Sitting, BP Cuff Size: Regular Adult) Pulse 92 Resp 16 Wt 55.8 kg (123 lb 0.3 oz) BMI 22.50 kg/m General Appearance: Well appearing, alert, in no acute distress, well-hydrated, well nourished.. Lungs: Lungs clear to auscultation. No wheezing, rhonchi, rales.. Heart: RRR without murmur, gallop, or rubs. No ectopy. Abdomen: Normal abdominal exam, Abdomen soft, non-tender. Bowel sounds normal. No masses, organomegaly. Health Maintenance List Shingrix Vaccine(2 of 3) due on 08/08/2012 Covid-19 Vaccine( season) due on 03/03/2024 Advance Directive Discussion due on 07/03/2024 Lung Cancer Screening due on 11/19/2024 Depression Screening due on 02/25/2025 Anxiety Screening due on 02/25/2025 Annual PCP Team Chronic Disease Visit due on 09/02/2025 Diabetes Screening due on 08/26/2027 Colorectal Cancer Screening due on 11/13/2028 Lipid Screening due on 08/26/2029 DTaP,Tdap,Td Vaccine(3 - Td or Tdap) due on 12/13/2029 Bone Density Screening Completed Influenza Vaccine Completed RSV Vaccine Completed Hepatitis C Screening Completed Pneumococcal Vaccine: 50+ Completed Mammogram Screening Discontinued Data reviewed [facility] scanned documents ASSESSMENT/PLAN: 1. Gastritis, bile acid reflux - ICD9: 535.40, ICD10: K29.60 (primary diagnosis) - Follow with GI instructions of increased medication - Improved 2. Gastroesophageal reflux disease, unspecified whether esophagitis present - ICD9: 530.81, ICD10: K21.9 - Improved today - Continue current medication regimen. - FAMOTIDINE 20 MG TABLET - COLESTIPOL 1 GRAM TABLET 3. Irritable bowel syndrome, unspecified type - ICD9: 564.1, ICD10: K58.9 - Stable - Continue current medication regimen. - FAMOTIDINE 20 MG TABLET Follow up as needed, keep appt as scheduled for routine follow up. I agree with the Chief Complaint, ROS, and Past Histories independently gathered by the clinical manager client support and the remaining scribed note accurately describes my personal service to the patient. Medical Decision Making: Problems: Low: Stable chronic illness Risk: Moderate: Drug management Medical Decision Making Level: 3 - Low Pepe Reyes MD The documentation for this note was completed by Julieta Mohan MA acting as scribe for Pepe Reyes MD. November 15, 2024 4:25 PM. Julieta Mohan MA documented in this encounter [facility] 11-15-2024 Note HNO ID: [id number] Author: PEPE REYES MD Service: ? Author Type: Physician Type: Progress Notes Filed: 11/15/2024 16:53 Note Text: Chief Complaint Patient presents with: Follow Up HPI Roman Kuhn is a 73 year old female who presents here today for follow up. Pt here to follow up on Bile/Reflux. This has been ongoing for 6 months with weight loss noted. Was going to cancel appt but thought she had to give a 24 hour notice. Wanted to f/u with findings from EGD, has bile reflux gastritis. Had EGD/Colonoscopy on 09/17/24. Colonoscopy had to be d/c due to poor prep. She follows with Gastro Dr. Friend at [facility]. Pt was able to f/u with GI, [facility] yesterday morning at 8:00 am, and they made some slight changes to her regimen. Was advised to start Pepcid 20 mg 2 tabs at bedtime before bed, Protonix 40 mg bid, and Colestipol 1 gram 1 tab po bid. They sent in a new Rx for her. Pt reports she started this regimen yesterday and woke up with her stomach feeling better. Burning from her throat to her bottom (butt) has improved. Asking if this is normal. Past medical history, appointments, medications, allergies reviewed. Previous Medical History PAST MEDICAL HISTORY Diagnosis Date Abdominal pain, epigastric Allergic rhinitis, cause unspecified Allergic rhinitis Esophageal reflux IBS (irritable bowel syndrome) constipation primarily Other and unspecified hyperlipidemia Unspecified hypothyroidism Previous Surgical History PAST SURGICAL HISTORY Procedure Laterality Date ABDOMINAL SURGERY HX BIOPSY BREAST OPEN INCISIONAL 08/14/2017 left stereotactic breast biopsy w/clip placement [facility] COLONOSCOPY FLX DX W/COLLJ SPEC WHEN PFRMD 12/18/2003 Colonoscopy COLONOSCOPY FLX DX W/COLLJ SPEC WHEN PFRMD 03/11/2008 Colonoscopy COLONOSCOPY FLX DX W/COLLJ SPEC WHEN PFRMD 07/19/2012 Colonoscopy COLONOSCOPY FLX DX W/COLLJ SPEC WHEN PFRMD 11/13/2018 Colonoscopy COSMETIC ASSESSMENT EGD 09/01/2020 ESOPHAGOGASTRODUODENOSCOPY TRANSORAL DIAGNOSTIC 03/12/2012 EGD ESOPHAGOGASTRODUODENOSCOPY TRANSORAL DIAGNOSTIC 11/13/2018 EGD EYE SURGERY HX LAPS SURG CHOLECYSTECTOMY W/CHOLANGIOGRAPHY 04/17/2012 Normal IOC PAST SURGICAL HISTORY OF hemmorhoidectomy PAST SURGICAL HISTORY OF 1970 ventral hernia repair - [place] - unknown for mesh PAST SURGICAL HISTORY OF age 27 partial hysterectomy PAST SURGICAL HISTORY OF 1998 benign breast bx PAST SURGICAL HISTORY OF 07/2002 lasik eye surgery PAST SURGICAL HISTORY OF 07/2006 recheck and enhancement on eye surgery PAST SURGICAL HISTORY OF Bilateral 2019 OD - 08/21, OS - 09/[address] Stock. Cataract implants RHINP PRIM LATANDALAR CRTLGSAND/ELVTN NASAL TI Rhinoplasty x 2 VAGINAL HYSTERECTOMY Family History FAMILY HISTORY Problem Relation Age of Onset Prostate Cancer Father Coronary Artery Disease Father late in life; enlarged heart; smoked Heart Mother valve, age 81 Colon Cancer Other none Diabetes Other none Patient Allergies ALLERGIES Allergen Reactions Ceclor [Cefaclor] ER for anaphylaxis Avelox [Moxifloxaci* Intolerance Bactrim [Sulfametho* Unknown Insides were raging Biaxin [Clarithromy* Celexa [Citalopram * Unknown Cipro [Ciprofloxaci* Entex [Phenylephrin* Erythromycin Levsinex [Hyoscyami* Lipitor [Atorvastat* Naldecon Senior Dx * Parafon Forte Dsc [* Paxil [Paroxetine H* Sulfa (Sulfonamide * Other: See Comments Suprax [Cefixime] Urispas [Flavoxate * Voltaren [Diclofena* Current Medications Current Outpatient Medications on File Prior to Visit Medication Sig famotidine (PEPCID) 20 mg tablet Take 1 tablet by mouth once daily. levothyroxine (SYNTHROID) 125 mcg tablet Take 1 tablet by mouth once daily. Take on empty stomach. For thyroid colestipol (COLESTID) 1 gram tablet Take 1 tablet by mouth once daily. pantoprazole DR (PROTONIX) 40 mg tablet Take 1 tablet by mouth daily before breakfast. Take on empty stomach, 1/2 hr before meal. albuterol HFA (VENTOLIN HFA) 90 mcg/actuation inhaler Inhale 2 Puffs as instructed every 6 hours as needed for wheezing/shortness of breath. tretinoin (RETIN-A) 0.025 % topical cream Apply 1 application to affected area daily at bedtime. pravastatin (PRAVACHOL) 40 mg tablet Take 1 tablet by mouth once daily. BENEFIBER, WHEAT DEXTRIN, ORAL Take 2 teaspoonsful by mouth three times a day. polyethylene glycol 3350 (MIRALAX, GLYCOLAX) 17 gram/dose powder Take 17 g by mouth twice daily. triamcinolone acetonide (NASACORT) 55 mcg nasal inhaler Use 2 Sprays in the nose once daily. aspirin(ECOTRIN LOW STRENGTH 81 MG TAB) Take one(1) tablet daily. ONE DAILY MULTI-VITAMIN TAB Take one(1) tablet daily. No current facility-administered medications on file prior to visit. Social History Social History Tobacco Use Smoking status: Every Day Current packs/day: 0.75 Average packs/day: 0.8 packs/day for 56.0 years (42.0 ttl pk-yrs) Types (more content not included)... [facility] 11-07-2024 Telephone encounter Note OK to refill as ordered Pepe Reyes MD [facility] 11-07-2024 Miscellaneous Notes OK to refill as ordered Pepe Reyes MD Prescription Refill Information The patient has been identified by name and date of : Yes Caregiver verified no other encounters exist for this prescription request: Yes Caregiver confirmed with patient/requestor that no other refills are due, in the near future, with this provider at this time: Yes The last office visit in the department: 09/02/24 Does the patient have a future office visit with this provider/department: Yes 12/03/24 Requested Prescriptions Pending Prescriptions Disp Refills famotidine (PEPCID) 20 mg tablet 90 tablet 3 Sig: Take 1 tablet by mouth once daily. Elise Munoz November 07, 2024 11:27 AM documented in this encounter [facility] 11-07-2024 Telephone encounter Note Prescription Refill Information The patient has been identified by name and date of : Yes Caregiver verified no other encounters exist for this prescription request: Yes Caregiver confirmed with patient/requestor that no other refills are due, in the near future, with this provider at this time: Yes The last office visit in the department: 09/02/24 Does the patient have a future office visit with this provider/department: Yes 12/03/24 Requested Prescriptions Pending Prescriptions Disp Refills famotidine (PEPCID) 20 mg tablet 90 tablet 3 Sig: Take 1 tablet by mouth once daily. Elise Munoz November 07, 2024 11:27 AM [facility] 10-18-2024 Note HNO ID: [id number] Author: BELINDA JASON PA-C Service: ? Author Type: Physician Radio Producer Type: Progress Notes Filed: 10/18/2024 11:33 Note Text: Large Joint Arthro/Inj: bilateral knee joints 10/18/2024 11:33 AM The procedure site was prepped in the usual sterile fashion. Site: bilateral knee joints Medications (Right): 3 mL hyaluronate sodium, stabilized 60 mg/3 mL Medications (Left): 3 mL hyaluronate sodium, stabilized 60 mg/3 mL Outcome: Tolerated well, no immediate complications Post-injection instructions were reviewed with the patient and the patient voiced understanding of these instructions. Informed Consent Consent Obtained: Verbal [place] Protocol A moment to CARE was completed. SIGN IN Sign in communication not applicable due to emergent procedure. Personnel directly involved with the procedure wore the appropriate PPE. Special Equipment: N/A Patient/Surrogate Stated/Verified: Patient name, Date of , Relevant allergies and Intended procedure TIME OUT Relevant labs, photos, and/or imaging studies have been reviewed. Consent documented and matches the intended procedure. Correct side/site marked and visible. Medications required for procedure verified. No fire risk assessment and interventions applicable. No implant(s) inserted. SIGN OUT No specimen collected. All instruments, equipment, possible retained foreign bodies accounted for. No post-procedure POC communication to the patient's multidisciplinary team (including the bedside nurse for hospitalized patients) applicable. [facility] 10-18-2024 History of Present illness Narrative Associated Order(s): Large Joint Arthro/Inj: bilateral knee joints Post-Procedure Diagnose(s): Primary osteoarthritis of both knees Large Joint Arthro/Inj: bilateral knee joints 10/18/2024 11:33 AM The procedure site was prepped in the usual sterile fashion. Site: bilateral knee joints Medications (Right): 3 mL hyaluronate sodium, stabilized 60 mg/3 mL Medications (Left): 3 mL hyaluronate sodium, stabilized 60 mg/3 mL Outcome: Tolerated well, no immediate complications Post-injection instructions were reviewed with the patient and the patient voiced understanding of these instructions. Informed Consent Consent Obtained: Verbal [place] Protocol A moment to CARE was completed. SIGN IN Sign in communication not applicable due to emergent procedure. Personnel directly involved with the procedure wore the appropriate PPE. Special Equipment: N/A Patient/Surrogate Stated/Verified: Patient name, Date of , Relevant allergies and Intended procedure TIME OUT Relevant labs, photos, and/or imaging studies have been reviewed. Consent documented and matches the intended procedure. Correct side/site marked and visible. Medications required for procedure verified. No fire risk assessment and interventions applicable. No implant(s) inserted. SIGN OUT No specimen collected. All instruments, equipment, possible retained foreign bodies accounted for. No post-procedure POC communication to the patient's multidisciplinary team (including the bedside nurse for hospitalized patients) applicable. [facility] ROOMING INTAKE FLOWSHEET DATA Pain Pain Level: 10 Pain Location: (bilateral knees) Description: Burning, Aching, Sharp Duration Amount of Time: (ongoing) Frequency: Continuous Intervention/Comfort measure: Medication Durolane injection into bilateral knees. LOT # [id number] EXP 03/02/2027 Leeanne Montemayor MA documented in this encounter [facility] 10-18-2024 Note HNO ID: [id number] Author: LEEANNE MONTEMAYOR MA Service: ? Author Type: Visual Journalist Type: Progress Notes Filed: 10/18/2024 11:33 Note Text: AMB ROOMING INTAKE FLOWSHEET DATA Pain Pain Level: 10 Pain Location: (bilateral knees) Description: Burning, Aching, Sharp Duration Amount of Time: (ongoing) Frequency: Continuous Intervention/Comfort measure: Medication Durolane injection into bilateral knees. LOT # [id number] EXP 03/02/2027 Leeanne Montemayor MA [facility] 09-30-2024 Note HNO ID: [id number] Author: BELINDA JASON PA-C Service: ? Author Type: Physician Radio Producer Type: Progress Notes Filed: 09/30/2024 08:36 Note Text: Belinda Jason PA-C Department of Orthopaedics Orthopaedics [address] [facility] [address] Dept: [phone] Dept September 30, 2024 CHIEF COMPLAINT: Follow Up and Knee Pain of the Left Knee and Follow Up and Knee Pain of the Right Knee (20 weeks post visit OA bilateral knees with injections given). ASSESSMENT: M17.0 Primary osteoarthritis of both knees (primary encounter diagnosis) M11.269 Chondrocalcinosis of knee, unspecified laterality SUMMARY/PLAN: Patient presents requesting a repeat left knee corticosteroid injection. She had bilateral knee corticosteroid injections this past May, right knee injection was much more helpful than the left. She is interested in trying some viscosupplementation. Has an allergy to NSAIDs, is already very active, does a walking and stretching routine daily. Is not interested in bracing. Ms. Roman Kuhn was advised as to contrast therapies and/or to take analgesics/anti-inflammatories as needed and all contraindications were reviewed. Supporting Information Below: Medications: Current Outpatient Medications Medication Sig levothyroxine (SYNTHROID) 125 mcg tablet Take 1 tablet by mouth once daily. Take on empty stomach. For thyroid colestipol (COLESTID) 1 gram tablet Take 1 tablet by mouth once daily. pantoprazole DR (PROTONIX) 40 mg tablet Take 1 tablet by mouth daily before breakfast. Take on empty stomach, 1/2 hr before meal. albuterol HFA (VENTOLIN HFA) 90 mcg/actuation inhaler Inhale 2 Puffs as instructed every 6 hours as needed for wheezing/shortness of breath. tretinoin (RETIN-A) 0.025 % topical cream Apply 1 application to affected area daily at bedtime. pravastatin (PRAVACHOL) 40 mg tablet Take 1 tablet by mouth once daily. famotidine (PEPCID) 20 mg tablet Take 1 tablet by mouth once daily. BENEFIBER, WHEAT DEXTRIN, ORAL Take 2 teaspoonsful by mouth three times a day. polyethylene glycol 3350 (MIRALAX, GLYCOLAX) 17 gram/dose powder Take 17 g by mouth twice daily. triamcinolone acetonide (NASACORT) 55 mcg nasal inhaler Use 2 Sprays in the nose once daily. aspirin(ECOTRIN LOW STRENGTH 81 MG TAB) Take one(1) tablet daily. ONE DAILY MULTI-VITAMIN TAB Take one(1) tablet daily. No current facility-administered medications for this visit. Allergies: Ceclor [Cefaclor], Avelox [Moxifloxacin Hcl], Bactrim [Sulfamethoxazole], Biaxin [Clarithromycin], Celexa [Citalopram Hydrobromide], Cipro [Ciprofloxacin], Entex [Phenylephrine-Guaifenesin], Erythromycin, Levsinex [Hyoscyamine Sulfate], Lipitor [Atorvastatin Calcium], Naldecon Senior Dx [Dextromethorphan-Guaifenesin], Parafon Forte Dsc [Chlorzoxazone], Paxil [Paroxetine Hcl], Sulfa (Sulfonamide Antibiotics), Suprax [Cefixime], Urispas [Flavoxate Hcl], and Voltaren [Diclofenac Sodium] This note was partially generated using [employer] voice recognition system, and there may be some incorrect words, spellings, and punctuation that were not noted in checking the note before saving. Belinda Jason PA-C Large Joint Arthro/Inj: L knee joint 09/30/2024 8:34 AM The procedure site was prepped in the usual sterile fashion. Site: L knee joint Medications: 6 mg betamethasone acetate-betamethasone sodium phosphate 6 mg/mL Anesthetics: 5 mL lidocaine (PF) 10 mg/mL (1 %) Outcome: Tolerated well, no immediate complications Post-injection instructions were reviewed with the patient and the patient voiced understanding of these instructions. Informed Consent Consent Obtained: Verbal [place] Protocol A moment to CARE was completed. SIGN IN Sign in communication not applicable due to emergent procedure. Personnel directly involved with the procedure wore the appropriate PPE. Special Equipment: N/A Patient/Surrogate Stated/Verified: Patient name, Date of , Relevant allergies and Intended procedure TIME OUT Relevant labs, photos, and/or imaging studies have been reviewed. Consent documented and matches the intended procedure. Correct side/site marked and visible. Medications required for procedure verified. No fire risk assessment and interventions applicable. No implant(s) inserted. SIGN OUT No specimen collected. All instruments, equipment, possible retained foreign bodies accounted for. Rationale for Viscosupplementation: Initial Request As a part of a multimodal treatment plan, we are requesting authorization of hyaluronic acid viscosupplementation injections for the improvement of symptoms related to osteoarthritis. Authorization is being requested for treatment of Bilateral knees. Rationale for authorization of these injections is based on the following elements: Signs and Symptoms Length of symptoms > 3 months Pain interferes with ADLs? Yes Radiographic evid (more content not included)... [facility] 09-30-2024 History of Present illness Narrative Associated Order(s): Large Joint Arthro/Inj: L knee joint Post-Procedure Diagnose(s): Primary osteoarthritis of both knees; Chondrocalcinosis of knee, unspecified laterality Belinda Jason PA-C Department of Orthopaedics Orthopaedics [address] [facility] [address] Dept: [phone] Dept September 30, 2024 CHIEF COMPLAINT: Follow Up and Knee Pain of the Left Knee and Follow Up and Knee Pain of the Right Knee (20 weeks post visit OA bilateral knees with injections given). ASSESSMENT: M17.0 Primary osteoarthritis of both knees (primary encounter diagnosis) M11.269 Chondrocalcinosis of knee, unspecified laterality SUMMARY/PLAN: Patient presents requesting a repeat left knee corticosteroid injection. She had bilateral knee corticosteroid injections this past May, right knee injection was much more helpful than the left. She is interested in trying some viscosupplementation. Has an allergy to NSAIDs, is already very active, does a walking and stretching routine daily. Is not interested in bracing. Ms. Roman Argueta Hattie was advised as to contrast therapies and/or to take analgesics/anti-inflammatories as needed and all contraindications were reviewed. Supporting Information Below: Medications: Current Outpatient Medications Medication Sig levothyroxine (SYNTHROID) 125 mcg tablet Take 1 tablet by mouth once daily. Take on empty stomach. For thyroid colestipol (COLESTID) 1 gram tablet Take 1 tablet by mouth once daily. pantoprazole DR (PROTONIX) 40 mg tablet Take 1 tablet by mouth daily before breakfast. Take on empty stomach, 1/2 hr before meal. albuterol HFA (VENTOLIN HFA) 90 mcg/actuation inhaler Inhale 2 Puffs as instructed every 6 hours as needed for wheezing/shortness of breath. tretinoin (RETIN-A) 0.025 % topical cream Apply 1 application to affected area daily at bedtime. pravastatin (PRAVACHOL) 40 mg tablet Take 1 tablet by mouth once daily. famotidine (PEPCID) 20 mg tablet Take 1 tablet by mouth once daily. BENEFIBER, WHEAT DEXTRIN, ORAL Take 2 teaspoonsful by mouth three times a day. polyethylene glycol 3350 (MIRALAX, GLYCOLAX) 17 gram/dose powder Take 17 g by mouth twice daily. triamcinolone acetonide (NASACORT) 55 mcg nasal inhaler Use 2 Sprays in the nose once daily. aspirin(ECOTRIN LOW STRENGTH 81 MG TAB) Take one(1) tablet daily. ONE DAILY MULTI-VITAMIN TAB Take one(1) tablet daily. No current facility-administered medications for this visit. Allergies: Ceclor [Cefaclor], Avelox [Moxifloxacin Hcl], Bactrim [Sulfamethoxazole], Biaxin [Clarithromycin], Celexa [Citalopram Hydrobromide], Cipro [Ciprofloxacin], Entex [Phenylephrine-Guaifenesin], Erythromycin, Levsinex [Hyoscyamine Sulfate], Lipitor [Atorvastatin Calcium], Naldecon Senior Dx [Dextromethorphan-Guaifenesin], Parafon Forte Dsc [Chlorzoxazone], Paxil [Paroxetine Hcl], Sulfa (Sulfonamide Antibiotics), Suprax [Cefixime], Urispas [Flavoxate Hcl], and Voltaren [Diclofenac Sodium] This note was partially generated using [employer] voice recognition system, and there may be some incorrect words, spellings, and punctuation that were not noted in checking the note before saving. Belinda Jason PA-C Large Joint Arthro/Inj: L knee joint 09/30/2024 8:34 AM The procedure site was prepped in the usual sterile fashion. Site: L knee joint Medications: 6 mg betamethasone acetate-betamethasone sodium phosphate 6 mg/mL Anesthetics: 5 mL lidocaine (PF) 10 mg/mL (1 %) Outcome: Tolerated well, no immediate complications Post-injection instructions were reviewed with the patient and the patient voiced understanding of these instructions. Informed Consent Consent Obtained: Verbal [place] Protocol A moment to CARE was completed. SIGN IN Sign in communication not applicable due to emergent procedure. Personnel directly involved with the procedure wore the appropriate PPE. Special Equipment: N/A Patient/Surrogate Stated/Verified: Patient name, Date of , Relevant allergies and Intended procedure TIME OUT Relevant labs, photos, and/or imaging studies have been reviewed. Consent documented and matches the intended procedure. Correct side/site marked and visible. Medications required for procedure verified. No fire risk assessment and interventions applicable. No implant(s) inserted. SIGN OUT No specimen collected. All instruments, equipment, possible retained foreign bodies accounted for. Rationale for Viscosupplementation: Initial Request As a part of a multimodal treatment plan, we are requesting authorization of hyaluronic acid viscosupplementation injections for the improvement of symptoms related to osteoarthritis. Authorization is being requested for treatment of Bilateral knees. Rationale for authorization of these injections is based on the following elements: Signs and Symptoms Length of symptoms > 3 months Pain interferes with ADLs? Yes Radiographic evidence of OA? Yes Previous Treatments Bracing attempted? No Formal Physical Therapy (PT)/ Home Exercise Program (HEP) attempted? Patient completed a comprehensive PT program with compliance to HEP NSAID medication attempted? Contraindicated (allergy) Corticosteroid injection attempted? Patient has had a previous CSI with intermittent relief Weight management attempted? No (Normal BMI) Patient is no longer symptomatic following the above treatments Requested Viscosupplementation Preferred product: Euflexxa Alternative product: Durolane or payor preferred Patient presents with: Left Knee - Follow Up, Knee Pain Right Knee - Follow Up, Knee Pain: 20 weeks post visit OA bilateral knees with injections given AMB ROOMING INTAKE FLOWSHEET DATA Risk Screening Do you have concerns about personal safety or safety in the home?: No Pain Pain Level: 6 Pain Location: Knee-Left Description: Sharp Duration Amount of Time: (Ongoing) Frequency: Continuous Intervention/Comfort measure: Medication Patient states injection did help as much the last time. She is continuing to have pain. Applying Therworx for the pain and helps numb the pain. documented in this encounter [facility] 09-30-2024 Note HNO ID: [id number] Author: COTY HARDIN MA Service: ? Author Type: Visual Journalist Type: Progress Notes Filed: 09/30/2024 08:36 Note Text: Patient presents with: Left Knee - Follow Up, Knee Pain Right Knee - Follow Up, Knee Pain: 20 weeks post visit OA bilateral knees with injections given AMB ROOMING INTAKE FLOWSHEET DATA Risk Screening Do you have concerns about personal safety or safety in the home?: No Pain Pain Level: 6 Pain Location: Knee-Left Description: Sharp Duration Amount of Time: (Ongoing) Frequency: Continuous Intervention/Comfort measure: Medication Patient states injection did help as much the last time. She is continuing to have pain. Applying Therworx for the pain and helps numb the pain. [facility] 09-17-2024 Consult note [facility] 09-17-2024 Consult note [facility] 09-17-2024 Procedure note [facility] 09-17-2024 Procedure note [facility] 09-17-2024 Procedure note [facility] 09-17-2024 Procedure note [facility] 09-17-2024 Consult note Note Date/Time September 17, 2024 1:14pm [facility] Medical Records Department [address] [place] [id number] Pre-Anesthesia Evaluation 09/17/24 1308 MR#: [id number] Acct: [id number] Name: ROMAN KUHN Rep #:[id number] : 1950 73 From: Santo Hankins MD PCP: Dr. Pepe Reyes MD Status:[facility] [place] Race: C Location: [facility] ASA Classification* ASA Classification ASA Classification: 2 (GERD, Thyroid, HLD, IBS) Assessment & Plan Anesthesia* Anesthesia Assessment Anesthesia Assessment: Discussed sedation and/or anesthesia options, risks, benefits, and alternatives with patient/parents/legal guardian/POA. Questions invited. The patient/parents/legal guardian/POA seems to understand and agrees to proceedwith anesthesia plan. Reviewed the physical assessment, medical history, allergy history and patient home medications list prior to surgery/procedure/anesthetic and documented any changes. Performed airway and anesthesia risk assessments. Anesthesia Type Anesthesia Type: General History Source History Obtained from:: Patient and Chart Anesthesia Focused Assessment* Temperature: 98 F Pulse Rate: 100 Blood Pressure: 121/71 Respiratory Rate: 16 Pulse Ox: 99 Oxygen Delivery Method: Room Air Airway Assessment Mouth opens: >3 cm Mallampati Score: II Teeth Condition: Intact Neck Range of motion (ROM): Full ROM Focused Labs Anesthesia Preop lab: CBC WBC 13.1 K/mm3 (4.4-11.0) H 05/26/24 08:20 4 RBC 4.36 M/mm3 (4.2-5.4) 05/26/24 08:20 05/26/24 Hgb 14.0 g/dL (12.0-15.0) 05/26/24 08:20 05/26/24 Hct 42.1 % (37-47) 05/26/24 08:20 05/26/24 Plt Count 285 K/mm3 (150-450) 05/26/24 08:20 05/26/24 CHEMISTRY Potassium 3.6 mmol/L (3.5-5.1) 05/26/24 08:20 05/26/24 Sodium 139 mmol/L (136-145) 05/26/24 08:20 05/26/24 BUN 9 mg/dL (7-18) 05/26/24 08:20 05/26/24 Creatinine 0.77 mg/dL (0.55-1.02) 05/26/24 08:20 05/26/24 Glucose 115 mg/dL (74-106) H 05/26/24 08:20 05/26/24 COAG Pre-Assessment Diagnosis/Proposed Procedure Planned Operative Procedure(s): EGD, CSCOPE Anesthesia History 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 When Was Last Pacemaker Check QUESTION #4 FULL TEXT: You/Your Family Experience fever (hyperthermia) with Anesthesia Last Oral Intake Last Oral intake: Last Oral Intake NPO since 08:00 09/17/24 12:49 Meds taken in AM with sips of No 09/17/24 12:49 water? 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 Has anyone observed you stop No 09/16/24 12:51 breathing during sleep? STOP Results Negative 09/16/24 12:51 QUESTION #5 FULL TEXT : Do you snore loudly (louder than talking or can be heard through closed doors)? 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 Specify any problems Hx of Preganancy in last 3 N/A 09/16/24 12:51 Months Nurse Filling Out Transfusion NBUCHER 09/16/24 12:51 & Questions: Date: 09/16/24 09/16/24 12:51 Time: 12:52 09/16/24 12:51 Patient unable to answer at this time (ie. 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: /Reproductive Hx- artillery meteorological man Hx Now No 09/16/24 12:51 Gestational Age (in weeks): EDC: Hx Hx Para Hx Section SAB No 09/16/24 12:51 PFSH Medical History (Updated 09/16/24 @ 12:59 by Lee Ann May) Hypothyroid Thyroid disease Arthritis High cholesterol History of IBS Smoker History of stress test IBS (irritable bowel syndrome) GERD (gastroesophageal reflux disease) Home Medications ?Medication ?Instructions ?Recorded ?Last Taken ?Type colestipol 1 gram tablet 1 g PO QDAY 06/27/24 Unknown History famotidine 20 mg tablet 20 mg PO QDAY 06/27/24 Unkno wn History levothyroxine 112 mcg capsule 112 mcg PO QDAY 06/27/24 Unknown History pantoprazole 40 mg tablet,delayed 40 mg PO QDAY Unknown History release pravastatin 40 mg tablet 40 mg PO QDAY 06/27/24 Unkno wn History Allergy/AdvReac Type Severity Reaction Status Date / Time citalopram (From Celexa) Allergy Unknown PT UNSURE Verified 09/17/24 12:48 OF REACTION clarithromycin (From Biaxin) Allergy Unknown PT UNABLE Verified 09/17/24 12:48 TO RESPOND-NEEDS F/U sulfamethoxazole (From Allergy Unknown PT UNSURE Verified 09/17/24 12:48 Bactrim) OF REACTION trimethoprim (From Bactrim) Allergy Unknown PT UNSURE Verified 09/17/24 12:48 OF REACTION atorvastatin (From Lipitor) Allergy PT UNSURE Verified 09/17/24 12:48 OF REACTION cefixime (From Suprax) Allergy PT UNABLE Verified 09/17/24 12:48 TO RESPOND-NEEDS F/U chlorzoxazone (From Parafon Allergy PT UNSURE Verified 09/17/24 12:48 Forte) OF REACTION ciprofloxacin (From Cipro) Allergy PT UNABLE Verified 09/17/24 12:48 TO RESPOND-NEEDS F/U diclofenac (From Voltaren) Allergy PT UNABLE Verified 09/17/24 12:48 TO RESPOND-NEEDS F/U flavoxate (From Urispas) Allergy PT UNABLE Verified 09/17/24 12:48 TO RESPOND-NEEDS F/U guaifenesin (From Entex LA) Allergy PT UNABLE Verified 09/17/24 12:48 TO RESPOND-NEEDS F/U hyoscyamine (From Levsinex) Allergy PT UNSURE Verified 09/17/24 12:48 OF REACTION moxifloxacin (From Avelox) Allergy PT UNSURE Verified 09/17/24 12:48 OF REACTION paroxetine (From Paxil) Allergy PT UNSURE Verified 09/17/24 12:48 OF REACTION phenylephrine (From Entex LA) Allergy PT UNABLE Verified 09/17/24 12:48 TO RESPOND-NEEDS F/U phenylpropanolamine (From Allergy PT UNABLE Verified 09/17/24 12:48 Entex LA) TO RESPOND-NEEDS F/U Sulfa (Sulfonamide Allergy PT UNABLE Verified 09/17/24 12:48 Antibiotics) TO RESPOND-NEEDS F/U Surgical History (Updated 09/16/24 @ 12:59 by Lee Ann May) History of colonoscopy History of esophagogastroduodenoscopy (EGD) Status post panniculectomy (~1980) History of cholecystectomy History of partial hysterectomy Social History Smoking Status: Current every day smoker tobacco type: cigarettes Review of Systems (Anesthesia) ROS Narrative System reviewed and no additional complaints, except as documented. Physical Exam Const alert, oriented x3 and average body habitus Resp normal respiratory effort, normal air movement and clear to auscultation bilaterally Cardio regular rate, regular rhythm, no murmurs and diaphoretic 09/17/24 1314 <Electronically signed by Santo Hankins MD> Date _ Santo Hankins MD Cosigner Signature: Date CC: ~ Signed [facility] Work Phone: [phone] History and physical note [facility] Medical Records Department [address] [place] [address] History & Physical Exam 09/17/24 1454 MR#: [id number] Acct: [id number] Name: ROMAN KUHN Rep #:[id number] : 1950 73 From: Chucky Friend DO PCP: Dr. Pepe Reyes MD Status:[facility] Location: [place] [address] HPI - General General Date of Admission: 09/17/24 Date of Service: 09/17/24 Chief Complaint: Abdominal pain HPI Narrative ROMAN KUHN, is a 73 F who presentsARTHLalo HATTIE, is a 73 F who presents to the office today forinitial consult. *BGI established 12.26.24 Pt reports long history of IBS and GERD. Pt reports being on antibiotics and steroids in the past few weeks and feels this has exacerbated her symptoms. Pt reported daily use of miralax and benefiber, usually has a daily bm. Pt reports increased nausea with constipation. Pt statesthat she was told she has an extra 10 inches of intestines and wonders if this is affecting her digestion. ROS Const Constitutional: Positive for fatigue; No fever(s) or weight change ENT ENT: No difficulty swallowing Cardio Cardiology: Positive for leg pain with exertion Gastro GI: Positive for bloating, constipation, excessive flatus and nausea/dyspepsia; No abdominal pain, belching, change in bowel habits, change in stool character, coffee ground emesis, cramping, diarrhea, heartburn, difficulty swallowing, feeling full early, incontinent of stools, Vomiting blood/hematemesis, Blood in stool, loose stools, Black,tarry stools, pain with swallowing, vomiting or other Musc Musculoskeletal: Positive for joint pain, back pain, stiffness, Arthritis and leg pain with exertion Skin Skin: Positive for dry skin; No yellowing of the eye or itchy eyes Psych Psychiatric: No anxiety and No depression Endo Endocrine: Positive for fatigue; No weight change Aller/Imm Allergy/Immunologic: No itchy eyes Rolo/Lymp Hematologic/Lymphatic: Positive for easy bruising; No easy bleeding Exam Const General: cooperative, healthy appearing, comfortable, no acute distress, well developed and well groomed Nutritional Appearance: average body habitus and well nourished Orientation: alert, awake and oriented x3 Limitations: altered mental status Eyes General: appearance normal, both eyes and all related structures Neck Neck: normal visual inspection, no lymphadenopathy, trachea midline and supple Resp Effort & Inspection: normal respiratory effort, able to speak in complete sentences and symmetric chest movement Auscultation: Bilateral: Clear to Auscultation Cardio Palpation: normal PMI Rate: regular rate Rhythm: regular rhythm Heart Sounds: S1 normal and S2 normal GI Inspection: normal to inspection Auscultation: normal bowel sounds Percussion: normal to percussion Palpation: soft Rectal Exam: visual inspection normal Assessment and Plan Assessment and Plan (1) Gastroesophageal reflux disease: (2) Diarrhea: Status: Inactive (3) IBS (irritable bowel syndrome): Status: Acute Plan: Patient is a 73-year-old female presenting with diffuse abdominal pain. Patientstates that she is on her last day of doxycycline and finished a course of prednisone yesterday. She was on it for sinusitis. Though symptoms have improved however she is been having worsening GI symptoms for the past few days. She notes that she felt nauseous on Monday, 5 days ago and started to have discomfort from her throat down all the way to her rectum. She states her abdomen just feels bloated and her entire GI tract feels hot. She has previously seen GI through [facility] and started taking her colestipol 3 times a day as well as daily MiraLAX and Benefiber. 2 days ago she took Colace because she still felt like nothing was moving in her stomach and then took a Grimes'. She states she usually tries to avoid taking any stimulant laxatives. She notes yesterday evening she started having copioussoft serve style bowel movements. She notes it is a little darker than normal but denies any black or blood in her stool. She is been feeling fatigued. She took an Imodium this morning in anticipation of coming to the emergency room. She denies any fevers. Does have a prior history of cholecystectomy and partial hysterectomy. States she is a diagnosis of IBS and GERD and in the s did havesome rectal bleeding inflammatory condition that she had to take medicine for and use suppositories. She is not sure if she has an actual history of Crohn disease, ulcerative colitis or other inflammatory bowel disorder. No other complaints or concerns reported at this time. She has not had any imaging. She did do very well with antibiotic therapy and transition to probiotic. We will test her stool for exocrine pancreatic insufficiency and an occult infection. She will also get biochemical profile for autoimmune disease such as inflammatory bowel disease, celiac disease that may affect her GI tract. We will have her continue on probiotic for now. Orders: Orders Calprotectin, Stool Today R19.7 - Diarrhea, unspecified CRP Today R19.7 - Diarrhea, unspecified Celiac Disease Profile Today R19.7 - Diarrhea, unspecified JOSE + Protein Elect, Serum Today R19.7 - Diarrhea, unspecified ANCA Today R19.7 - Diarrhea, unspecified Erythrocyte Sed Rate Today R19.7 - Diarrhea, unspecified Immunoglobulins G/A/M/E Today R19.7 - Diarrhea, unspecified IBD Expanded Profile Today R19.7 - Diarrhea, unspecified Vitamin B12 Today R19.7 - Diarrhea, unspecified Folates, (Folic Acid) Today R19.7 - Diarrhea, unspecified Allergen, Food Profile 14 Today R19.7 - Diarrhea, unspecified Lipase Today R19.7 - Diarrhea, unspecified Amylase Today R19.7 - Diarrhea, unspecified Anti-Parietal Cell AB, QN Today R19.7 - Diarrhea, unspecified Gastrin, Serum Today R19.7 - Diarrhea, unspecified DARIO Comprehensive Panel Today R19.7 - Diarrhea, unspecified Intrinsic Factor Ab Today K58.9 - Irritable bowel syndrome, unspecified PFSH Medical History Hypothyroid Thyroid disease Arthritis High cholesterol History of IBS Smoker History of stress test IBS (irritable bowel syndrome) GERD (gastroesophageal reflux disease) Home Medications ?Medication ?Instructions ?Recorded ?Last Taken ?Type colestipol 1 gram tablet 1 g PO QDAY 06/27/24 Unknown History famotidine 20 mg tablet 20 mg PO QDAY 06/27/24 Unkno wn History levothyroxine 112 mcg capsule 112 mcg PO QDAY 06/27/24 Unknown History pantoprazole 40 mg tablet,delayed 40 mg PO QDAY Unknown History release pravastatin 40 mg tablet 40 mg PO QDAY 06/27/24 Unkno wn History Allergy/AdvReac Type Severity Reaction Status Date / Time citalopram (From Celexa) Allergy Unknown PT UNSURE Verified 09/17/24 12:48 OF REACTION clarithromycin (From Biaxin) Allergy Unknown PT UNABLE Verified 09/17/24 12:48 TO RESPOND-NEEDS F/U sulfamethoxazole (From Allergy Unknown PT UNSURE Verified 09/17/24 12:48 Bactrim) OF REACTION trimethoprim (From Bactrim) Allergy Unknown PT UNSURE Verified 09/17/24 12:48 OF REACTION atorvastatin (From Lipitor) Allergy PT UNSURE Verified 09/17/24 12:48 OF REACTION cefixime (From Suprax) Allergy PT UNABLE Verified 09/17/24 12:48 TO RESPOND-NEEDS F/U chlorzoxazone (From Parafon Allergy PT UNSURE Verified 09/17/24 12:48 Forte) OF REACTION ciprofloxacin (From Cipro) Allergy PT UNABLE Verified 09/17/24 12:48 TO RESPOND-NEEDS F/U diclofenac (From Voltaren) Allergy PT UNABLE Verified 09/17/24 12:48 TO RESPOND-NEEDS F/U flavoxate (From Urispas) Allergy PT UNABLE Verified 09/17/24 12:48 TO RESPOND-NEEDS F/U guaifenesin (From Entex LA) Allergy PT UNABLE Verified 09/17/24 12:48 TO RESPOND-NEEDS F/U hyoscyamine (From Levsinex) Allergy PT UNSURE Verified 09/17/24 12:48 OF REACTION moxifloxacin (From Avelox) Allergy PT UNSURE Verified 09/17/24 12:48 OF REACTION paroxetine (From Paxil) Allergy PT UNSURE Verified 09/17/24 12:48 OF REACTION phenylephrine (From Entex LA) Allergy PT UNABLE Verified 09/17/24 12:48 TO RESPOND-NEEDS F/U phenylpropanolamine (From Allergy PT UNABLE Verified 09/17/24 12:48 Entex LA) TO RESPOND-NEEDS F/U Sulfa (Sulfonamide Allergy PT UNABLE Verified 09/17/24 12:48 Antibiotics) TO RESPOND-NEEDS F/U Surgical History History of colonoscopy History of esophagogastroduodenoscopy (EGD) Status post panniculectomy (~1980) History of cholecystectomy History of partial hysterectomy Social History Smoking Status: Current every day smoker tobacco type: cigarettes ROS Constitutional Constitutional: Denies fatigue, fever(s), poor appetite, weight gain or weight loss Gastrointestinal Gastrointestinal: Denies belching, bloating, change in bowel habits, change in stool character, chewing difficulty, coffee ground emesis, constipation, cramping, diarrhea, dyspepsia, dysphagia, earlysatiety, excessive flatus, fecalincontinence, heartburn, hematemesis, hematochezia, hemorrhoids, loose stools, melena, nausea, odynophagia, rectal bleeding, tenesmus, vomiting or weight changes Vital Signs Vital Signs Vital Signs: 09/17/24 12:49 09/17/24 12:49 09/17/24 13:11 Temperature 98 F 98 F Temperature Source Temporal Pulse Rate 100 100 Respiratory Rate 16 16 Respiratory Pattern Normal Blood Pressure 121/71 H 121/71 H Blood Pressure Mean 87 Blood Pressure Source Monitor Blood Pressure Position Semi-Fowlers Blood Pressure Location Right Arm Pulse Ox 99 99 Oxygen Delivery Method Room Air Room Air Weight Weight: 124 lb 12.506 oz Body Mass Index (BMI) 22.1 Physical Exam Const alert, oriented x3, no apparent distress and healthy appearing General Appearance: cooperative GI normal to inspection, nondistended, normoactive bowel sounds, soft to palpation,non-tender and non-distended Percussion: normal to percussion Rectal Exam: deferred Assessment & Plan Assessment/Plan (1) IBS (irritable bowel syndrome): PLAN: Assessment and Plan Assessment and Plan (1) Gastroesophageal reflux disease: (2) Diarrhea: Status: Inactive (3) IBS (irritable bowel syndrome): Status: Acute Plan: Patient is a 73-year-old female presenting with diffuse abdominal pain. Patientstates that she is on her last day of doxycycline and finished a course of prednisone yesterday. She was on it for sinusitis. Though symptoms have improved however she is been having worsening GI symptoms for the past few days. She notes that she felt nauseous on Monday, 5 days ago and started to have discomfort from her throat down all the way to her rectum. She states her abdomen just feels bloated and her entire GI tract feels hot. She has previously seen GI through [facility] and started taking her colestipol 3 times a day as well as daily MiraLAX and Benefiber. 2 days ago she took Colace because she still felt like nothing was moving in her stomach and then took a Grimes'. She states she usually tries to avoid taking any stimulant laxatives. She notes yesterday evening she started having copioussoft serve style bowel movements. She notes it is a little darker than normal but denies any black or blood in her stool. She is been feeling fatigued. She took an Imodiumthis morning in anticipationof coming to the emergency room. She denies any fevers. Does have a prior history of cholecystectomy and partial hysterectomy. States she is a diagnosis of IBS and GERD and in the 90s did have some rectal bleeding inflammatory condition that she had to take medicine for and use suppositories. She is not sure if she has an actual history of Crohn disease, ulcerative colitis or other inflammatory bowel disorder. No other complaints orconcerns reported at this time. She has not had any imaging. She did do very well with antibiotic therapy and transition to probiotic. We will test her stool for exocrine pancreatic insufficiency and an occult infection. She will also get biochemical profile for autoimmune disease such as inflammatory bowel disease, celiac disease that may affect her GI tract. We will have her continue on probiotic for now. Orders: Orders Calprotectin, Stool Today R19.7 - Diarrhea, unspecified CRP Today R19.7 - Diarrhea, unspecified Celiac Disease Profile Today R19.7 - Diarrhea, unspecified JOSE + Protein Elect, Serum Today R19.7 - Diarrhea, unspecified ANCA Today R19.7 - Diarrhea, unspecified Erythrocyte Sed Rate Today R19.7 - Diarrhea, unspecified Immunoglobulins G/A/M/E Today R19.7 - Diarrhea, unspecified IBD Expanded Profile Today R19.7 - Diarrhea, unspecified Vitamin B12 Today R19.7 - Diarrhea, unspecified Folates, (Folic Acid) Today R19.7 - Diarrhea, unspecified Allergen, Food Profile 14 Today R19.7 - Diarrhea, unspecified Lipase Today R19.7 - Diarrhea, unspecified Amylase Today R19.7 - Diarrhea, unspecified Anti-Parietal Cell AB, QN Today R19.7 - Diarrhea, unspecified Gastrin, Serum Today R19.7 - Diarrhea, unspecified DARIO Comprehensive Panel Today R19.7 - Diarrhea, unspecified Intrinsic Factor Ab Today K58.9 - Irritable bowel syndrome, unspecified 09/17/24 1456 Cosigner Signature (if applicable): CC: Dr. Pepe Reyes MD; Chucky Woodall DO~ Signed [facility]03-18-2025 [facility] Medical Records Department [address] [place] [address] History Physical Exam 09/17/24 1454 MR#: [id number] Acct: [id number] Name: ROMAN KUHN Rep #: [id number] : 1950 73 From: Chucky Woodall DO PCP: Dr. Pepe Reyes MD Status:[employer] Location: [place] [address] HPI - General General Date of Admission: 09/17/24 Date of Service: 09/17/24 Chief Complaint: Abdominal pain HPI Narrative ROMAN KUHN, is a 73 F who presentsARTHLalo KUHN, is a 73 F who presents to the office today for initial consult. *BGI established 06.27.24 Pt reports long history of IBS and GERD. Pt reports being on antibiotics and steroids in the past few weeks and feels this has exacerbated her symptoms. Pt reported daily use of miralax and benefiber, usually has a daily bm. Pt reports increased nausea with constipation. Pt states that she was told she has an extra 10 inches of intestines and wonders if this is affecting her digestion. ROS Const Constitutional: Positive for fatigue; No fever(s) or weight change ENT ENT: No difficulty swallowing Cardio Cardiology: Positive for leg pain with exertion Gastro GI: Positive for bloating, constipation, excessive flatus and nausea/dyspepsia; No abdominal pain, belching, change in bowel habits, change in stool character, coffee ground emesis, cramping, diarrhea, heartburn, difficulty swallowing, feeling full early, incontinent of stools, Vomiting blood/hematemesis, Blood in stool, loose stools, Black,tarry stools, pain with swallowing, vomiting or other Musc Musculoskeletal: Positive for joint pain, back pain, stiffness, Arthritis and leg pain with exertion Skin Skin: Positive for dry skin; No yellowing of the eye or itchy eyes Psych Psychiatric: No anxiety and No depression Endo Endocrine: Positive for fatigue; No weight change Aller/Imm Allergy/Immunologic: No itchy eyes Rolo/Lymp Hematologic/Lymphatic: Positive for easy bruising; No easy bleeding Exam Const General: cooperative, healthy appearing, comfortable, no acute distress, well developed and well groomed Nutritional Appearance: average body habitus and well nourished Orientation: alert, awake and oriented x3 Limitations: altered mental status Eyes General: appearance normal, both eyes and all related structures Neck Neck: normal visual inspection, no lymphadenopathy, trachea midline and supple Resp Effort Inspection: normal respiratory effort, able to speak in complete sentences and symmetric chest movement Auscultation: Bilateral: Clear to Auscultation Cardio Palpation: normal PMI Rate: regular rate Rhythm: regular rhythm Heart Sounds: S1 normal and S2 normal GI Inspection: normal to inspection Auscultation: normal bowel sounds Percussion: normal to percussion Palpation: soft Rectal Exam: visual inspection normal Assessment and Plan Assessment and Plan (1) Gastroesophageal reflux disease: (2) Diarrhea: Status: Inactive (3) IBS (irritable bowel syndrome): Status: Acute Plan: Patient is a 73-year-old female presenting with diffuse abdominal pain. Patient states that she is on her last day of doxycycline and finished a course of prednisone yesterday. She was on it for sinusitis. Though symptoms have improved however she is been having worsening GI symptoms for the past few days. She notes that she felt nauseous on Monday, 5 days ago and started to have discomfort from her throat down all the way to her rectum. She states her abdomen just feels bloated and her entire GI tract feels hot. She has previously seen GI through [facility] and started taking her colestipol 3 times a day as well as daily MiraLAX and Benefiber. 2 days ago she took Colace because she still felt like nothing was moving in her stomach and then took a Grimes'. She states she usually tries to avoid taking any stimulant laxatives. She notes yesterday evening she started having copious soft serve style bowel movements. She notes it is a little darker than normal but denies any black or blood in her stool. She is been feeling fatigued. She took an Imodium this morning in anticipation of coming to the emergency room. She denies any fevers. Does have a prior history of cholecystectomy and partial hysterectomy. States she is a diagnosis of IBS and GERD and in the did have some rectal bleeding inflammatory condition that she had to take medicine for and use suppositories. She is not sure if she has an actual history of Crohn disease, ulcerative colitis or other inflammatory bowel disorder. No other complaints or concerns reported at this time. She has not had any imaging. She did do very well with antibiotic therapy and transition to probiotic. We will test her stool for exocrine pancreatic insufficiency and an occult infection. She will also get biochemical profile for autoimmun (more content not included)...[facility]03-18-2025 Evaluation note* Diagnosis Onset Date Resolution Status Admit Date IBS (irritable bowel syndrome) acute September 17, 2024 12:25pm IBS (irritable bowel syndrome) acute October 24, 2024 1:08pm Diarrhea inactive October 24 1:08pm Gastroesophageal reflux disease none active October 24, 2024 1:08pm [facility] Work Phone: [phone] Evaluation note* Diagnosis Onset Date Resolution Status Admit Date IBS (irritable bowel syndrome) chron ic September 17, 2024 12:25pm IBS (irritable bowel syndrome) chron ic October 24, 2024 1:08pm Diarrhea inactive October 24 1:08pm Gastroesophageal reflux disease none active October 24, 2024 1:08pm Gastritis, bile acid reflux acute November 14, 2024 8:35am IBS (irritable bowel syndrome) chron ic November 14, 2024 8:35am [facility] Work Phone: [phone] Consult note [facility] Medical Records Department [address] [place] [address] Pre-Anesthesia Evaluation 09/17/24 1308 MR#: [id number] Acct: [id number] Name: ROMAN KUHN Rep #:[id number] : 1950 73 From: Santo Hankins MD PCP: Dr. Pepe Reyes MD Status:RE G SDC Y Race: C Location: [place] [address] ASA Classification* ASA Classification ASA Classification: 2 (GERD, Thyroid, HLD, IBS) Assessment & Plan Anesthesia* Anesthesia Assessment Anesthesia Assessment: Discussed sedation and/or anesthesia options, risks, benefits, and alternatives with patient/parents/legal guardian/POA. Questions invited. The patient/parents/legal guardian/POA seems to understand and agrees to proceedwith anesthesia plan. Reviewed the physical assessment, medical history, allergy history and patient home medications list prior to surgery/procedure/anesthetic and documented any changes. Performed airway and anesthesia risk assessments. Anesthesia Type Anesthesia Type: General History Source History Obtained from:: Patient and Chart Anesthesia Focused Assessment* Temperature: 98 F Pulse Rate: 100 Blood Pressure: 121/71 Respiratory Rate: 16 Pulse Ox: 99 Oxygen Delivery Method: Room Air Airway Assessment Mouth opens: >3 cm Mallampati Score: II Teeth Condition: Intact Neck Range of motion (ROM): Full ROM Focused Labs Anesthesia Preop lab: CBC WBC 13.1 K/mm3 (4.4-11.0) H 05/26/24 08:20 4 RBC 4.36 M/mm3 (4.2-5.4) 05/26/24 08:20 05/26/24 Hgb 14.0 g/dL (12.0-15.0) 05/26/24 08:20 05/26/24 Hct 42.1 % (37-47) 05/26/24 08:20 05/26/24 Plt Count 285 K/mm3 (150-450) 05/26/24 08:20 05/26/24 CHEMISTRY Potassium 3.6 mmol/L (3.5-5.1) 05/26/24 08:20 05/26/24 Sodium 139 mmol/L (136-145) 05/26/24 08:20 05/26/24 BUN 9 mg/dL (7-18) 05/26/24 08:20 05/26/24 Creatinine 0.77 mg/dL (0.55-1.02) 05/26/24 08:20 05/26/24 Glucose 115 mg/dL (74-106) H 05/26/24 08:20 05/26/24 COAG Pre-Assessment Diagnosis/Proposed Procedure Planned Operative Procedure(s): EGD, CSCOPE Anesthesia History 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 When Was Last Pacemaker Check QUESTION #4 FULL TEXT: You/Your Family Experience fever (hyperthermia) with Anesthesia Last Oral Intake Last Oral intake: Last Oral Intake NPO since 08:00 09/17/24 12:49 Meds taken in AM with sips of No 09/17/24 12:49 water? 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 Has anyone observed you stop No 09/16/24 12:51 breathing during sleep? STOP Results Negative 09/16/24 12:51 QUESTION #5 FULL TEXT : Do you snore loudly (louder than talking or can be heard through closeddoors)? 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 Specify any problems Hx of Preganancy in last 3 N/A 09/16/24 12:51 Months Nurse Filling Out Transfusion NBUCHER 09/16/24 12:51 & Questions: Date: 09/16/24 09/16/24 12:51 Time: 12:52 09/16/24 12:51 Patient unable to answer at this time (ie. 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: /Reproductive Hx- artillery meteorological man Hx Now No 09/16/24 12:51 Gestational Age (in weeks): EDC: Hx Hx Para Hx Section SAB No 09/16/24 12:51 PFSH Medical History (Updated 09/16/24 @ 12:59 by Lee Ann May) Hypothyroid Thyroid disease Arthritis High cholesterol History of IBS Smoker History of stress test IBS (irritable bowel syndrome) GERD (gastroesophageal reflux disease) Home Medications ?Medication ?Instructions ?Recorded ?Last Taken ?Type colestipol 1 gram tablet 1 g PO QDAY 06/27/24 Unknown History famotidine 20 mg tablet 20 mg PO QDAY 06/27/24 Unkno wn History levothyroxine 112 mcg capsule 112 mcg PO QDAY 06/27/24 Unknown History pantoprazole 40 mg tablet,delayed 40 mg PO QDAY Unknown History release pravastatin 40 mg tablet 40 mg PO QDAY 06/27/24 Unkno wn History Allergy/AdvReac Type Severity Reaction Status Date / Time citalopram (From Celexa) Allergy Unknown PT UNSURE Verified 09/17/24 12:48 OF REACTION clarithromycin (From Biaxin) Allergy Unknown PT UNABLE Verified 09/17/24 12:48 TO RESPOND-NEEDS F/U sulfamethoxazole (From Allergy Unknown PT UNSURE Verified 09/17/24 12:48 Bactrim) OF REACTION trimethoprim (From Bactrim) Allergy Unknown PT UNSURE Verified 09/17/24 12:48 OF REACTION atorvastatin (From Lipitor) Allergy PT UNSURE Verified 09/17/24 12:48 OF REACTION cefixime (From Suprax) Allergy PT UNABLE Verified 09/17/24 12:48 TO RESPOND-NEEDS F/U chlorzoxazone (From Parafon Allergy PT UNSURE Verified 09/17/24 12:48 Forte) OF REACTION ciprofloxacin (From Cipro) Allergy PT UNABLE Verified 09/17/24 12:48 TO RESPOND-NEEDS F/U diclofenac (From Voltaren) Allergy PT UNABLE Verified 09/17/24 12:48 TO RESPOND-NEEDS F/U flavoxate (From Urispas) Allergy PT UNABLE Verified 09/17/24 12:48 TO RESPOND-NEEDS F/U guaifenesin (From Entex LA) Allergy PT UNABLE Verified 09/17/24 12:48 TO RESPOND-NEEDS F/U hyoscyamine (From Levsinex) Allergy PT UNSURE Verified 09/17/24 12:48 OF REACTION moxifloxacin (From Avelox) Allergy PT UNSURE Verified 09/17/24 12:48 OF REACTION paroxetine (From Paxil) Allergy PT UNSURE Verified 09/17/24 12:48 OF REACTION phenylephrine (From Entex LA) Allergy PT UNABLE Verified 09/17/24 12:48 TO RESPOND-NEEDS F/U phenylpropanolamine (From Allergy PT UNABLE Verified 09/17/24 12:48 Entex LA) TO RESPOND-NEEDS F/U Sulfa (Sulfonamide Allergy PT UNABLE Verified 09/17/24 12:48 Antibiotics) TO RESPOND-NEEDS F/U Surgical History (Updated 09/16/24 @ 12:59 by Lee Ann May) History of colonoscopy History of esophagogastroduodenoscopy (EGD) Status post panniculectomy (~1980) History of cholecystectomy History of partial hysterectomy Social History Smoking Status: Current every day smoker tobacco type: cigarettes Review of Systems (Anesthesia) ROS Narrative System reviewed and no additional complaints, except as documented. Physical Exam Const alert, oriented x3 and average body habitus Resp normal respiratory effort, normal air movement and clear to auscultation bilaterally Cardio regular rate, regular rhythm, no murmurs and diaphoretic 09/17/24 1314 MD> Date _ Santo Hankins MD Cosigner Signature: Date CC: ~ Signed [facility]03-03-2025 History of Present illness Narrative* Pepe Reyes MD - 09/02/2024 12:40 PM EST Chief Complaint Patient presents with: F/U 6 Month HPI Roman Kuhn is a 73 year old female who presents here today for 6 month follow up. Smoking 1 ppd. Has chronic Gi and bowel issues. No urinary issues. Chronic hx of IBS. Has intermittent flare ups with being off her diet or eating things she shouldn't. Pt current taking Miralax BID, Benefiber, Protonix 40 mg once daily, Pepcid 20 mg once daily and Colestid 1 gram daily. Did start taking a daily Probiotic which has significantly helped her GI symptoms. Thyroid: Taking synthroid 112 mcg daily, feels okay on this dosage. No missed dosages. Lipid/glucose: Watches her diet. Exercising 15 minutes of stretching per day. Taking Pravastatin 40mg daily. Following with Derm, Dr. Stock for seborrheic keratosis and toenail fungus. Was being treated with Diflucan, thought she was seeing improvement. Issues with sacroiliac joint and following with Chiropractor and went through their program. Does 15 minutes of stretching every morning. HM - Does have a Living Will. Due for Covid vaccine in October or October 2024. Past medical history, appointments, medications, allergies reviewed. Previous Medical History PAST MEDICAL HISTORY Diagnosis Date Abdominal pain, epigastric Allergic rhinitis, cause unspecified Allergic rhinitis Esophageal reflux IBS (irritable bowel syndrome) constipation primarily Other and unspecified hyperlipidemia Unspecified hypothyroidism Previous Surgical History PAST SURGICAL HISTORY Procedure Laterality Date ABDOMINAL SURGERY HX BIOPSY BREAST OPEN INCISIONAL 08/14/2017 left stereotactic breast biopsy w/clip placement [facility] COLONOSCOPY FLX DX W/COLLJ SPEC WHEN PFRMD 12/18/2003 Colonoscopy COLONOSCOPY FLX DX W/COLLJ SPEC WHEN PFRMD 03/11/2008 Colonoscopy COLONOSCOPY FLX DX W/COLLJ SPEC WHEN PFRMD 07/19/2012 Colonoscopy COLONOSCOPY FLX DX W/COLLJ SPEC WHEN PFRMD 11/13/2018 Colonoscopy COSMETIC ASSESSMENT EGD 09/01/2020 ESOPHAGOGASTRODUODENOSCOPY TRANSORAL DIAGNOSTIC 03/12/2012 EGD ESOPHAGOGASTRODUODENOSCOPY TRANSORAL DIAGNOSTIC 11/13/2018 EGD EYE SURGERY HX LAPS SURG CHOLECYSTECTOMY W/CHOLANGIOGRAPHY 04/17/2012 Normal IOC PAST SURGICAL HISTORY OF hemmorhoidectomy PAST SURGICAL HISTORY OF 1969 ventral hernia repair - [place] - unknown for mesh PAST SURGICAL HISTORY OF age 27 partial hysterectomy PAST SURGICAL HISTORY OF 1998 benign breast bx PAST SURGICAL HISTORY OF 07/2002 lasik eye surgery PAST SURGICAL HISTORY OF 07/2006 recheck and enhancement on eye surgery PAST SURGICAL HISTORY OF Bilateral 2018 OD - 08/21, OS - 09/[address] Stock. Cataract implants RHINP PRIM LAT&ALAR CRTLGS&/ELVTN NASAL TI Rhinoplasty x 2 VAGINAL HYSTERECTOMY Family History FAMILY HISTORY Problem Relation Age of Onset Prostate Cancer Father Coronary Artery Disease Father late in life; enlarged heart; smoked Heart Mother valve, age 81 Colon Cancer Other none Diabetes Other none Patient Allergies ALLERGIES Allergen Reactions Ceclor [Cefaclor] ER for anaphylaxis Avelox [Moxifloxaci* Intolerance Bactrim [Sulfametho* Unknown Insides were raging Biaxin [Clarithromy* Celexa [Citalopram * Unknown Cipro [Ciprofloxaci* Entex [Phenylephrin* Erythromycin Levsinex [Hyoscyami* Lipitor [Atorvastat* Naldecon Senior Dx * Parafon Forte Dsc [* Paxil [Paroxetine H* Sulfa (Sulfonamide * Other: See Comments Suprax [Cefixime] Urispas [Flavoxate * Voltaren [Diclofena* Current Medications Current Outpatient Medications on File Prior to Visit Medication Sig colestipol (COLESTID) 1 gram tablet Take 1 tablet by mouth once daily. levothyroxine (SYNTHROID) 112 mcg tablet Take 1 tablet by mouth once daily. Take on empty stomach. For thyroid pantoprazole DR (PROTONIX) 40 mg tablet Take 1 tablet by mouth daily before breakfast. Take on empty stomach, 1/2 hr before meal. albuterol HFA (VENTOLIN HFA) 90 mcg/actuation inhaler Inhale 2 Puffs as instructed every 6 hours asneeded for wheezing/shortness of breath. tretinoin (RETIN-A) 0.025 % topical cream Apply 1 application to affected area daily at bedtime. pravastatin (PRAVACHOL) 40 mg tablet Take 1 tablet by mouth once daily. famotidine (PEPCID) 20 mg tablet Take 1 tablet by mouth once daily. BENEFIBER, WHEAT DEXTRIN, ORAL Take 2 teaspoonsful by mouth three times a day. polyethylene glycol 3350 (MIRALAX, GLYCOLAX) 17 gram/dose powder Take 17 g by mouth twice daily. triamcinolone acetonide (NASACORT) 55 mcg nasal inhaler Use 2 Sprays in the nose once daily. aspirin(ECOTRIN LOW STRENGTH 81 MG TAB) Take one(1) tablet daily. ONE DAILY MULTI-VITAMIN TAB Take one(1) tablet daily. No current facility-administered medications on file prior to visit. Social History Social History Tobacco Use Smoking status: Every Day Current packs/day: 0.75 Average packs/day: 0.8 packs/day for 56.0 years (42.0 ttl pk-yrs) Types: Cigarettes Smokeless tobacco: Never Vaping Use Vaping status: Never Used Substance Use Topics Alcohol use: Yes Comment: occasionally Drug use: No EXAM: BP 128/80 (BP Site: Right Arm, BP Position: Sitting, BP Cuff Size: Regular Adult) Pulse 76 Resp18 Wt 57.4 kg (126 lb 8.7 oz) BMI 23.15 kg/m General Appearance: Well appearing, alert, in no acute distress, well-hydrated, well nourished.. Lungs: Lungs clear to auscultation. No wheezing, rhonchi, rales.. Heart: RRR without murmur, gallop, or rubs. No ectopy. Health Maintenance List Shingrix Vaccine(2 of 3) due on 08/08/2012 Covid-19 Vaccine() due on 03/03/2024 Advance Directive Discussion due on 07/03/2024 Lung Cancer Screening due on 11/19/2024 Depression Screening due on 02/25/2025 Anxiety Screening due on 02/25/2025 Annual PCP Team Chronic Disease Visit due on 06/10/2025 Diabetes Screening due on 08/26/2027 Colorectal Cancer Screening due on 11/13/2028 Lipid Screening due on 08/26/2029 DTaP,Tdap,Td Vaccine(3 - Td or Tdap) due on 12/13/2029 Bone Density Screening Completed Influenza Vaccine Completed RSV Vaccine Completed Hepatitis C Screening Completed Pneumococcal Vaccine: 50+ Completed Mammogram Screening Discontinued Data reviewed Appointment on 08/26/2024 Component Date Value Protein, Total 08/26/2024 6.6 Albumin 08/26/2024 4.4 Calcium, Total 08/26/2024 10.3 (H) Bilirubin, Total 08/26/2024 0.3 Alkaline Phosphatase 08/26/2024 73 AST 08/26/2024 25 ALT 08/26/2024 16 Glucose 08/26/2024 93 BUN 08/26/2024 13 Creatinine 08/26/2024 0.75 Sodium 08/26/2024 142 Potassium 08/26/2024 4.2 Chloride 08/26/2024 104 CO2 08/26/2024 26 Anion Gap 08/26/2024 12 Estimated Glomerular Adan* 08/26/2024 83 Cholesterol, Total 08/26/2024 186 Triglyceride 08/26/2024 108 HDL Cholesterol 08/26/2024 65 Non HDL Cholesterol 08/26/2024 121 Fasting Time 08/26/2024 12 VLDL Cholesterol 08/26/2024 22 TC:HDL Ratio 08/26/2024 2.86 LDL Cholesterol 08/26/2024 99 LDL:HDL Ratio 08/26/2024 1.52 Hemoglobin A1C 08/26/2024 6.2 (H) Estimated Average Glucose 08/26/2024 131 TSH 08/26/2024 4.790 (H) ASSESSMENT/PLAN: 1. Irritable bowel syndrome, unspecified type - ICD9: 564.1, ICD10: K58.9 (primary diagnosis) Stable Continue current medications. 2. Hyperlipidemia, unspecified hyperlipidemia type - ICD9: 272.4, ICD10: E78.5 - Controlled - Continue current medications - Counseled on healthy diet and regular exercise - COMPREHENSIVE METABOLIC PANEL - LIPID PANEL BASIC 3. Hypothyroidism, unspecified type - ICD9: 244.9, ICD10: E03.9 - Instructed patient on importance of taking on an empty stomach either first thing in the morning or at bedtime. - Increase Synthroid dose to 0.125 mg - COMPLETE BLOOD COUNT - THYROID STIMULATING HORMONE 4. Elevated glucose - ICD9: 790.29, ICD10: R73.09 Stable Monitor - COMPREHENSIVE METABOLIC PANEL - LIPID PANEL BASIC - HEMOGLOBIN A1C 5. Gastroesophageal reflux disease, unspecified whether esophagitis present - ICD9: 530.81, ICD10: K21.9 Continue current medications. 6. Chronic bilateral low back pain with bilateral sciatica - ICD9: 724.2, 724.3, 338.29, ICD10: M54.42, M54.41, G89.29 Stable 7. Smoker - ICD9: 305.1, ICD10: F17.200 - Cessation encouraged. - Physiologic and physical aspects of tobacco addiction as well as strategies for quitting were discussed. - Counseling was given focusing on the harmful effects of this addiction especially given the patient's medical condition(s) which will be worsened because of the chemicals in tobacco. Follow up in 6 months Medical Decision Making: Problems: Moderate: 2+ stable chronic illnesses and 1+ chronic illnesses with change Data: Unique test result(s) reviewed: 3+ Unique test(s) ordered: 3+ Risk: Moderate: Drug management Medical Decision Making Level: 4 - Moderate Pepe Reyes MD documented in [facility] encounterH[facility] NoteHNO ID: [id number] Author: PEPE REYES MD Service: ? Author Type: Physician Type: Progress Notes Filed: 09/02/2024 15:39 Note Text: Chief Complaint Patient presents with: F/U 6 Month HPI Roman Kuhn is a 73 year old female who presents here today for 6 month follow up. Smoking 1 ppd. Has chronic Gi and bowel issues. No urinary issues. Chronic hx of IBS. Has intermittent flare ups with being off her diet or eating things she shouldn't. Pt current taking Miralax BID, Benefiber, Protonix 40 mg once daily, Pepcid 20 mg once daily and Colestid 1 gram daily. Did start taking a daily Probiotic which has significantly helped her GI symptoms. Thyroid: Taking synthroid 112 mcg daily, feels okay on this dosage. No missed dosages. Lipid/glucose: Watches her diet. Exercising 15 minutes of stretching per day. Taking Pravastatin 40 mg daily. Following with Derm, Dr. Stock for seborrheic keratosis and toenail fungus. Was being treated with Diflucan, thought she was seeing improvement. Issues with sacroiliac joint and following with Chiropractor and went through their program. Does 15 minutes of stretching every morning. HM - Does have a Living Will. Due for Covid vaccine in October or October 2024. Past medical history, appointments, medications, allergies reviewed. Previous Medical History PAST MEDICAL HISTORY Diagnosis Date Abdominal pain, epigastric Allergic rhinitis, cause unspecified Allergic rhinitis Esophageal reflux IBS (irritable bowel syndrome) constipation primarily Other and unspecified hyperlipidemia Unspecified hypothyroidism Previous Surgical History PAST SURGICAL HISTORY Procedure Laterality Date ABDOMINAL SURGERY HX BIOPSY BREAST OPEN INCISIONAL 08/14/2017 left stereotactic breast biopsy w/clip placement [facility] COLONOSCOPY FLX DX W/COLLJ SPEC WHEN PFRMD 12/18/2003 Colonoscopy COLONOSCOPY FLX DX W/COLLJ SPEC WHEN PFRMD 03/11/2008 Colonoscopy COLONOSCOPY FLX DX W/COLLJ SPEC WHEN PFRMD 07/19/2012 Colonoscopy COLONOSCOPY FLX DX W/COLLJ SPEC WHEN PFRMD 11/13/2018 Colonoscopy COSMETIC ASSESSMENT EGD 09/01/2020 ESOPHAGOGASTRODUODENOSCOPY TRANSORAL DIAGNOSTIC 03/12/2012 EGD ESOPHAGOGASTRODUODENOSCOPY TRANSORAL DIAGNOSTIC 11/13/2018 EGD EYE SURGERY HX LAPS SURG CHOLECYSTECTOMY W/CHOLANGIOGRAPHY 04/17/2012 Normal IOC PAST SURGICAL HISTORY OF hemmorhoidectomy PAST SURGICAL HISTORY OF 1969 ventral hernia repair - [place] - unknown for mesh PAST SURGICAL HISTORY OF age 27 partial hysterectomy PAST SURGICAL HISTORY OF 1998 benign breast bx PAST SURGICAL HISTORY OF 07/2002 lasik eye surgery PAST SURGICAL HISTORY OF 07/2006 recheck and enhancement on eye surgery PAST SURGICAL HISTORY OF Bilateral 2018 OD - 08/21, OS - 09/[address] Stock. Cataract implants RHINP PRIM LATANDALAR CRTLGSAND/ELVTN NASAL TI Rhinoplasty x 2 VAGINAL HYSTERECTOMY Family History FAMILY HISTORY Problem Relation Age of Onset Prostate Cancer Father Coronary Artery Disease Father late in life; enlarged heart; smoked Heart Mother valve, age 81 Colon Cancer Other none Diabetes Other none Patient Allergies ALLERGIES Allergen Reactions Ceclor [Cefaclor] ER for anaphylaxis Avelox [Moxifloxaci* Intolerance Bactrim [Sulfametho* Unknown Insides were raging Biaxin [Clarithromy* Celexa [Citalopram * Unknown Cipro [Ciprofloxaci* Entex [Phenylephrin* Erythromycin Levsinex [Hyoscyami* Lipitor [Atorvastat* Naldecon Senior Dx * Parafon Forte Dsc [* Paxil [Paroxetine H* Sulfa (Sulfonamide * Other: See Comments Suprax [Cefixime] Urispas [Flavoxate * Voltaren [Diclofena* Current Medications Current Outpatient Medications on File Prior to Visit Medication Sig colestipol (COLESTID) 1 gram tablet Take 1 tablet by mouth once daily. levothyroxine (SYNTHROID) 112 mcg tablet Take 1 tablet by mouth once daily. Take on empty stomach. For thyroid pantoprazole DR (PROTONIX) 40 mg tablet Take 1 tablet by mouth daily before breakfast. Take on empty stomach, 1/2 hr before meal. albuterol HFA (VENTOLIN HFA) 90 mcg/actuation inhaler Inhale 2 Puffs as instructed every 6 hours as needed for wheezing/shortness of breath. tretinoin (RETIN-A) 0.025 % topical cream Apply 1 application to affected area daily at bedtime. pravastatin (PRAVACHOL) 40 mg tablet Take 1 tablet by mouth once daily. famotidine (PEPCID) 20 mg tablet Take 1 tablet by mouth once daily. BENEFIBER, WHEAT DEXTRIN, ORAL Take 2 teaspoonsful by mouth three times a day. polyethylene glycol 3350 (MIRALAX, GLYCOLAX) 17 gram/dose powder Take 17 g by mouth twice daily. triamcinolone acetonide (NASACORT) 55 mcg nasal inhaler Use 2 Sprays in the nose once daily. aspirin(ECOTRIN LOW STRENGTH 81 MG TAB) Take one(1) tablet daily. ONE DAILY MULTI-VITAMIN TAB Take one(1) tablet daily. No current facility-administered medications on file prior to visit. Social History S (more content not included)...[facility]01-27-2025 Telephone encounter Note* Telephone Encounter - Pepe Reyes MD - 07/29/2024 1:51 PM EST OK to refill as ordered Pepe Reyes MD [facility]01-27-2025 Miscellaneous Notes* Telephone Encounter - Pepe Reyes MD - 07/29/2024 1:51 PM EST OK to refill as ordered Pepe Reyes MD * Telephone Encounter - Kiley Jensen - 07/29/2024 12:57 PM EST Patient has been identified by name and date of : Yes Patient phones for refill(s): Requested Prescriptions Pending Prescriptions Disp Refills colestipol (COLESTID) 1 gram tablet 90 tablet 3 Sig: Take 1 tablet by mouth once daily. Date of last office visit in primary care: 06/10/2024 Date of next office visit in primary care: 09/02/2024 Please advise. Thank you. Kiley Jensen. documented in this encounterH[facility]01-27-[facility]25 Telephone encounter Note * Telephone Encounter - Kiley Jensen - 07/29/2024 12:57 PM EST Patient has been identified by name and date of : Yes Patient phones for refill(s): Requested Prescriptions Pending Prescriptions Disp Refills colestipol (COLESTID) 1 gram tablet 90 tablet 3 Sig: Take 1 tablet by mouth once daily. Date of last office visit in primary care: 06/10/2024 Date of next office visit in primary care: 09/02/2024 Please advise. Thank you. Kiley Jensen. [facility]12-26-[facility] Evaluation note* Diagnosis Onset Date Resolution Status Admit Date IBS (irritable bowel syndrome) acute June 27, 2024 1:36pm Diarrhea inactive June 27, 2024 1:36pm Gastroesophageal reflux disease noneactive June 27, 024 1:36pm IBS (irritable bowel syndrome) acute September 17, 2024 12:25pm [facility] Work Phone: 1(125) 708-411812-09-2024 History of Present illness Narrative* Pepe Reyes MD - 06/10/2024 2:00 PM EST Chief Complaint Patient presents with: ED Follow-up: Abdominal pain HPI Roman Kuhn is a 73 year old female who presents here today for ER Follow Up. Pt was at [facility] ER on 05/26/24 for abdominal pain, gastroenteritis noninfectious. She had been treated with antibiotics for sinus bronchitis and covid prior to the abdominal pain. She was taking a lot of Excedrin when she was since with sinus issues. Gets her ears cleaned out by Dr. Rush with [facility]. She feels that the sinus issues have improved, right side is working much better. Denies anyresidual effects from Covid. Has appt 06/27/24 to see Gastro [facility] to get established with him. She saw her chiropractor the following week and they sold her a probiotic which has been helping with the bowels, less frequent, moving better with less straining and less angry. She is not burping and farting as much as she usually does. She thinks she is going to continue with the Probiotic along with her Colestid, Protonix, and Pepcid. She started taking Prevagen, feels this is helping with her memory. Below copied from Certain: Chief Complaint: Abd Pain Informant: patient Narrative Narrative: Patient is a 73-year-old female presenting with diffuse abdominal pain. Patient states that she is on her last day of doxycycline and finished a course of prednisone yesterday. She was on it for sinusitis. Though symptoms have improved however she is been having worsening GI symptoms for the past few days. She notes that she felt nauseous on Monday, 5 days ago and started to have discomfort fromher throat down all the way to her rectum. She states her abdomen just feels bloated and her entireGI tract feels hot. She has previously seen GI through [facility] and started taking her colestipol 3 times a day as well as daily MiraLAX and Benefiber. 2 days ago she took Colace because she s till felt like nothing was moving in her stomach and then took a Grimes'. She states she usually tries to avoid taking any stimulant laxatives. She notes yesterday evening she started having copious soft serve style bowel movements. She notes it is a little darker than normal but denies any blackor blood in her stool. She is been feeling fatigued. She took an Imodium this morning in anticipation of coming to the emergency room. She denies any fevers. Does have a prior history of cholecystectomy and partial hysterectomy. States she is a diagnosis of IBS and GERD and in the 90s did have somerectal bleeding inflammatory condition that she had to take medicine for and use suppositories. Sheis not sure if she has an actual history of Crohn disease, ulcerative colitis or other inflammatorybowel disorder. No other complaints or concerns reported at this time. Medical decision making narrative: Patient evaluated for diffuse abdominal pain as well as burning esophageal and stomach pain. Has been on recent doxycycline and prednisone. Has had abnormal bowel movements. Differential includes referred ACS, diverticulitis, ileus, pancreatitis, choledocholithiasis, urinary tract infection, inflammatory bowel disease as well as irritable bowel syndrome. Patient declines any medications at this time. Will obtain lab work including CBC, CMP, lipase and urinalysis, CT abdomen pelvis and EKG. Patient is a mild leukocytosis of 13.1. Is unclear if this is elevated from a recent course of prednisone, reactive or associate with acute infection. She is not have a shift. CMP and lipase normal. Urinalysis largely normal not consistent with infection. CT of the abdomen and pelvis does show nondistended fluid-filled small and large bowel loop suggestive of diffuse enteritis. There is also sigmoid diverticulosis without evidence of acute diverticulitis. On repeat evaluation patient is resting comfortably. Given the diffuse enteritis did order stool studies. Patient able to provide us very small stool sample. She will be discharged home with a stool studies pending. I will contact her with the results. Is given dose of Zofran prior to discharge andwill prescribe her a course of this. Is encouraged to follow-up with her GI specialist and she might require repeat colonoscopy. Not clear if this is a viral syndrome, infectious enteritis, or irritation/IBS associated with her recent antibiotics and steroids. Since that she is also having some reflux symptoms. At this time will defer further antibiotics or medications. Patient is already on bothPepcid and Protonix. Is given return precautions. Discharged home in stable condition. Discussed return precautions including developing fevers, intractable nausea, severe diarrhea, worsening abdominal pain or blood in her stool. There was not enough stool for the enteric panel however her C. difficile was negative. Stool lactoferrin positive. Patient contacted and notified of these results. STUDY: CT ABDOMEN AND PELVIS WITH CONTRAST REASON FOR EXAM: Female, 73 years old. Diffuse abdominal pain RADIATION DOSAGE (If Supplied By Facility): CTDIvol = ( 24.97 ) mGy, DLP = ( 474.73 ) mGycm TECHNIQUE: Transaxial images were obtained from the dome of the diaphragm to the symphysis pubis without oral contrast. IV 100mL Isovue-370 was administered. Sagittal and coronal images were reconstructed. Individualized dose optimization techniques were used for this CT. COMPARISON: None. FINDINGS: The visualized lung bases are unremarkable. The visualized portions of the heart are within normal limits. Normal liver. There is non-visualization of the gallbladder, which may be secondary to either contraction or a prior cholecystectomy. Normal spleen. Normal pancreas. Normal bilateral adrenal glands. Both kidneys show prominent renal pelvis but no obstructive uropathy. There is a simple 2.5 cm left renal cyst. Normal visualized stomach. Nondistended fluid-filled small and large bowel loops suggest diffuse enteritis. Extensive sigmoid diverticulosis without CT evidence of acute diverticulitis, an underlying lesion cannot be excluded. Normal appendix seen on coronal recon images 46 through 57. Normal abdominal aorta. Normal inferior vena cava. Normal retroperitoneum. Normal urinary bladder. Normal abdominal wall. There are diffuse degenerative changes of the visualized lumbar spine, and pelvis, there is a grade 1 spondylolisthesis at L5/S1.. CT/Abdomen/Pelvis W IV Cont ONLY IMPRESSION: Nondistended fluid-filled small and large bowel loops suggest diffuse enteritis. There is extensive sigmoid diverticulosis without CT evidence of acute diverticulitis. However, an underlying lesion within the sigmoid cannot be excluded. 2.5 cm simple left renal cyst, no specific follow-up needed. No free intraperitoneal fluid, air, or suspicious adenopathy, normal appendix visualized Past medical history, appointments, medications, allergies reviewed. Previous Medical History PAST MEDICAL HISTORY Diagnosis Date Abdominal pain, epigastric Allergic rhinitis, cause unspecified Allergic rhinitis Esophageal reflux IBS (irritable bowel syndrome) constipation primarily Other and unspecified hyperlipidemia Unspecified hypothyroidism Previous Surgical History PAST SURGICAL HISTORY Procedure Laterality Date ABDOMINAL SURGERY HX BIOPSY BREAST OPEN INCISIONAL 08/14/2017 left stereotactic breast biopsy w/clip placement [facility] COLONOSCOPY FLX DX W/COLLJ SPEC WHEN PFRMD 12/18/2003 Colonoscopy COLONOSCOPY FLX DX W/COLLJ SPEC WHEN PFRMD 03/11/2008 Colonoscopy COLONOSCOPY FLX DX W/COLLJ SPEC WHEN PFRMD 07/19/2012 Colonoscopy COLONOSCOPY FLX DX W/COLLJ SPEC WHEN PFRMD 11/13/2018 Colonoscopy COSMETIC ASSESSMENT EGD 09/01/2020 ESOPHAGOGASTRODUODENOSCOPY TRANSORAL DIAGNOSTIC 03/12/2012 EGD ESOPHAGOGASTRODUODENOSCOPY TRANSORAL DIAGNOSTIC 11/13/2018 EGD EYE SURGERY HX LAPS SURG CHOLECYSTECTOMY W/CHOLANGIOGRAPHY 04/17/2012 Normal IOC PAST SURGICAL HISTORY OF hemmorhoidectomy PAST SURGICAL HISTORY OF 1969 ventral hernia repair - [place] - unknown for mesh PAST SURGICAL HISTORY OF age 27 partial hysterectomy PAST SURGICAL HISTORY OF 1998 benign breast bx PAST SURGICAL HISTORY OF 07/2002 lasik eye surgery PAST SURGICAL HISTORY OF 07/2006 recheck and enhancement on eye surgery PAST SURGICAL HISTORY OF Bilateral 2018 OD - 08/21, OS - 09/[address] Stock. Cataract implants RHINP PRIM LAT&ALAR CRTLGS&/ELVTN NASAL TI Rhinoplasty x 2 VAGINAL HYSTERECTOMY Family History FAMILY HISTORY Problem Relation Age of Onset Prostate Cancer Father Coronary Artery Disease Father late in life; enlarged heart; smoked Heart Mother valve, age 81 Colon Cancer Other none Diabetes Other none Patient Allergies ALLERGIES Allergen Reactions Ceclor [Cefaclor] ER for anaphylaxis Avelox [Moxifloxaci* Intolerance Bactrim [Sulfametho* Unknown Insides were raging Biaxin [Clarithromy* Celexa [Citalopram * Unknown Cipro [Ciprofloxaci* Entex [Phenylephrin* Erythromycin Levsinex [Hyoscyami* Lipitor [Atorvastat* Naldecon Senior Dx * Parafon Forte Dsc [* Paxil [Paroxetine H* Sulfa (Sulfonamide * Other: See Comments Suprax [Cefixime] Urispas [Flavoxate * Voltaren [Diclofena* Current Medications Current Outpatient Medications on File Prior to Visit Medication Sig levothyroxine (SYNTHROID) 112 mcg tablet Take 1 tablet by mouth once daily. Take on empty stomach. For thyroid pantoprazole DR (PROTONIX) 40 mg tablet Take 1 tablet by mouth daily before breakfast. Take on empty stomach, 1/2 hr before meal. albuterol HFA (VENTOLIN HFA) 90 mcg/actuation inhaler Inhale 2 Puffs as instructed every 6 hours asneeded for wheezing/shortness of breath. tretinoin (RETIN-A) 0.025 % topical cream Apply 1 application to affected area daily at bedtime. pravastatin (PRAVACHOL) 40 mg tablet Take 1 tablet by mouth once daily. famotidine (PEPCID) 20 mg tablet Take 1 tablet by mouth once daily. BENEFIBER, WHEAT DEXTRIN, ORAL Take 2 teaspoonsful by mouth three times a day. colestipol (COLESTID) 1 gram tablet take 1 tablet every day polyethylene glycol 3350 (MIRALAX, GLYCOLAX) 17 gram/dose powder Take 17 g by mouth twice daily. triamcinolone acetonide (NASACORT) 55 mcg nasal inhaler Use 2 Sprays in the nose once daily. aspirin(ECOTRIN LOW STRENGTH 81 MG TAB) Take one(1) tablet daily. ONE DAILY MULTI-VITAMIN TAB Take one(1) tablet daily. No current facility-administered medications on file prior to visit. Social History Social History Tobacco Use Smoking status: Every Day Current packs/day: 0.75 Average packs/day: 0.8 packs/day for 56.0 years (42.0 ttl pk-yrs) Types: Cigarettes Smokeless tobacco: Never Vaping Use Vaping status: Never Used Substance Use Topics Alcohol use: Yes Comment: occasionally Drug use: No EXAM: BP 120/70 Pulse 78 Resp 16 Wt 57.2 kg (126 lb 1.7 oz) BMI 23.06 kg/m General Appearance: Well appearing, alert, in no acute distress, well-hydrated, well nourished.. Lungs: Lungs clear to auscultation. No wheezing, rhonchi, rales.. Heart: RRR without murmur, gallop, or rubs. No ectopy. Abdomen: Normal abdominal exam, Abdomen soft, non-tender. Bowel sounds normal. No masses, organomegaly. Health Maintenance List Shingrix Vaccine(2 of 3) due on 08/08/2012 Covid-19 Vaccine() due on 03/03/2024 Lung Cancer Screening due on 11/19/2024 Depression Screening due on 02/25/2025 Anxiety Screening due on 02/25/2025 Annual PCP Team Chronic Disease Visit due on 06/10/2025 Diabetes Screening due on 02/18/2027 Colorectal Cancer Screening due on 11/13/2028 Lipid Screening due on 02/18/2029 DTaP,Tdap,Td Vaccine(3 - Td or Tdap) due on 12/13/2029 Bone Density Screening Completed Influenza Vaccine Completed Advance Directive Discussion Completed RSV Vaccine Completed Hepatitis C Screening Completed Pneumococcal Vaccine: 65+ Completed Mammogram Screening Discontinued Data reviewed [facility] Reports from 05/26/24 ASSESSMENT/PLAN: 1. Irritable bowel syndrome, unspecified type - ICD9: 564.1, ICD10: K58.9 (primary diagnosis) Contineu current regimen She will keep appt with Dr Woodall to establish with him 2. Generalized abdominal pain - ICD9: 789.07, ICD10: R10.84 Resolved 3. Gastroenteritis - ICD9: 558.9, ICD10: K52.9 Resolved Follow up prn I agree with the Chief Complaint, ROS, and Past Histories independently gathered by the clinical manager client support and the remaining scribed note accurately describes my personal service to the patient. Medical Decision Making: Problems: Low: Acute, uncomplicated illness or injury Risk: Moderate: Drug management Medical Decision Making Level: 3 - Low Pepe Reyes MD The documentation for this note was completed by Aracely Pires MA acting as scribe for Pepe Reyes MD. June 10, 2024 1:52 PM. Aracely Pries MA documented in this encounterH[facility]12-09-2024 NoteHNO ID: [id number] Author: PEPE REYES MD Service: ? Author Type: Physician Type: Progress Notes Filed: 06/10/2024 14:31 Note Text: Chief Complaint Patient presents with: ED Follow-up: Abdominal pain HPI Roman Kuhn is a 73 year old female who presents here today for ER Follow Up. Pt was at [facility] ER on 05/26/24 for abdominal pain, gastroenteritis noninfectious. She had been treated with antibiotics for sinus bronchitis and covid prior to the abdominal pain. She was taking a lot of Excedrin when she was since with sinus issues. Gets her ears cleaned out by Dr. Rush with [facility]. She feels that the sinus issues have improved, right side is working much better. Denies any residual effects from Covid. Has appt 06/27/[address] Woodall to get established with him. She saw her chiropractor the following week and they sold her a probiotic which has been helping with the bowels, less frequent, moving better with less straining and less angry. She is not burping and farting as much as she usually does. She thinks she is going to continue with the Probiotic along with her Colestid, Protonix, and Pepcid. She started taking Prevagen, feels this is helping with her memory. Below copied from Certain: Chief Complaint: Abd Pain Informant: patient Narrative Narrative: Patient is a 73-year-old female presenting with diffuse abdominal pain. Patient states that she is on her last day of doxycycline and finished a course of prednisone yesterday. She was on it for sinusitis. Though symptoms have improved however she is been having worsening GI symptoms for the past few days. She notes that she felt nauseous on Monday, 5 days ago and started to have discomfort from her throat down all the way to her rectum. She states her abdomen just feels bloated and her entire GI tract feels hot. She has previously seen GI through [facility] and started taking her colestipol 3 times a day as well as daily MiraLAX and Benefiber. 2 days ago she took Colace because she still felt like nothing was moving in her stomach and then took a Grimes'. She states she usually tries to avoid taking any stimulant laxatives. She notes yesterday evening she started having copious soft serve style bowel movements. She notes it is a little darker than normal but denies any black or blood in her stool. She is been feeling fatigued. She took an Imodium this morning in anticipation of coming to the emergency room. She denies any fevers. Does have a prior history of cholecystectomy and partial hysterectomy. States she is a diagnosis of IBS and GERD and in the 90s did have some rectal bleeding inflammatory condition that she had to take medicine for and use suppositories. She is not sure if she has an actual history of Crohn disease, ulcerative colitis or other inflammatory bowel disorder. No other complaints or concerns reported at this time. Medical decision making narrative: Patient evaluated for diffuse abdominal pain as well as burning esophageal and stomach pain. Has been on recent doxycycline and prednisone. Has had abnormal bowel movements. Differential includes referred ACS, diverticulitis, ileus, pancreatitis, choledocholithiasis, urinary tract infection, inflammatory bowel disease as well as irritable bowel syndrome. Patient declines any medications at this time. Will obtain lab work including CBC, CMP, lipase and urinalysis, CT abdomen pelvis and EKG. Patient is a mild leukocytosis of 13.1. Is unclear if this is elevated from a recent course of prednisone, reactive or associate with acute infection. She is not have a shift. CMP and lipase normal. Urinalysis largely normal not consistent with infection. CT of the abdomen and pelvis does show nondistended fluid-filled small and large bowel loop suggestive of diffuse enteritis. There is also sigmoid diverticulosis without evidence of acute diverticulitis. On repeat evaluation patient is resting comfortably. Given the diffuse enteritis did order stool studies. Patient able to provide us very small stool sample. She will be discharged home with a stool studies pending. I will contact her with the results. Is given dose of Zofran prior to discharge and will prescribe her a course of this. Is encouraged to follow-up with her GI specialist and she might require repeat colonoscopy. Not clear if this is a viral syndrome, infectious enteritis, or irritation/IBS associated with her recent antibiotics and steroids. Since that she is also having some reflux symptoms. At this time will defer further antibiotics or medications. Patient is already on both Pepcid and Protonix. Is given return precautions. Discharged home in stable condition. Discussed return precautions including developing fevers, intractable nausea, severe diarrhea, worsening abdominal pain or blood in her stool. There was not enough stool for the enteric panel ho (more content not included)...[facility]12-03-2024 NoteHNO ID: [id number] Author: CRISTY HENDERSON MA Service: ? Author Type: Visual Journalist Type: Progress Notes Filed: 06/04/2024 14:13 Note Text: POPULATION HEALTH NAVIGATION OUTREACH Action/FYI Patient returned call and scheduled ER Follow up Reason for Outreach Community Monitoring/Network Navigator Pools AND Phone Line: ACM Patient Contacted: Spoke to patient/parent/or legal guardian Patient identified by name and : Yes Community Monitoring/Network Navigator Pools AND Phone Line actions taken: Patient scheduled: ER Follow-up 06/10/2024 in [facility] with PEPE REYES - ER Follow Up, ED DIAGNOSES/REASON(S) FOR ED USE: , [facility] 05/26/24-Dx Abdominal pain, Gastroenteritis 09/02/2024 in [facility] with PEPE REYES - 6 mo f/u 12/02/[address] [facility] with [facility] (I-STAT) - Tobacco use current [Z72.0] 12/02/[facility] - Tobacco use current [Z72.0] Navigation Signature: Cristy Henderson MA June 04, 2024 2:12 [facility]12-03-2024 History of Present illness Narrative* Cristy Henderson MA - 06/04/2024 2:12 PM EST POPULATION HEALTH NAVIGATION OUTREACH Action/FYI Patient returned call and scheduled ER Follow up Reason for Outreach Community Monitoring/Network Navigator Pools & Phone Line: ACM Patient Contacted: Spoke to patient/parent/or legal guardian Patient identified by name and : Yes Community Monitoring/Network Navigator Pools & Phone Line actions taken: Patient scheduled: ER Follow-up 06/10/2024 in [facility] with PEPE REYES - ER Follow Up, ED DIAGNOSES/REASON(S) FOR ED USE: , [facility] 05/26/24-Dx Abdominal pain, Gastroenteritis 09/02/2024 in [facility] with PEPE REYES - 6 mo f/u 12/02/[address] [facility] with [facility] (I-STAT) - Tobacco use current [Z72.0] 12/02/2024 in [facility] with PETERSON NORTON - Tobacco use current [Z72.0] Navigation Signature: Cristy Henderson MA June 04, 2024 2:12 PM * Cristy Henderson MA - 06/04/2024 1:56 PM EST POPULATION HEALTH NAVIGATION OUTREACH Action/FYI 1st attempt AC REJI RN Patient identified by name and date of . Reason for review or outreach: Chart Review Reji Priority Emergency Department Utilization REQUESTED ACTION/FYI: Please see ED Utilization summary below: A follow-up appointment is not noted in patient's record. We are forwarding this patient to [employer] Navigation to schedule a [facility] 05/26/24 PCP follow-up appointment. Thank you VM left Due for ER Follow Up Postponed 2 days Reason for Outreach Community Monitoring/Network Navigator Pools & Phone Line: AC Patient Contacted: Unable or unnecessary to reach patient: Left message Navigation Signature: Cristy Henderson MA June 04, 2024 1:56 PM * Maddie Kwon RN - 06/04/2024 1:46 PM ESTSummary: ED utilization review per request of payor ACM REJI RN Patient identified by name and date of . Reason for review or outreach: Chart Review Reji Priority Emergency Department Utilization REQUESTED ACTION/FYI: Please see ED Utilization summary below: A follow-up appointment is not noted in patient's record. We are forwarding this patient to [employer] Navigation to schedule a [facility] 05/26/24 PCP follow-up appointment. Thank you Exclusion Criteria - Does not meet exclusion criteria ED DIAGNOSES/REASON(S) FOR ED USE: [facility] 05/26/24-Dx Abdominal pain, Gastroenteritis OTHER FINDINGS/SUMMARY: GI F/U also recommended Patient Attributed To: EVON Payer: Luis Fernando RASCON Action Taken: Referrals/Routed: Population Health Navigation: Appointment. Router to COMMUNITY MONITORING PSS POOL [[phone]] Contact made with patient: No, Chart review only. Signature: Maddie DUEÑAS,RN,[facility] Pier Hand Helper Management Contract RN [phone] documented in this encounterHocking Valley Community Hospital12-03-2024 NoteHNO ID: [id number] Author: CRISTY HENDERSON MA Service: ? Author Type: Visual Journalist Type: Progress Notes Filed: 06/04/2024 13:57 Note Text: POPULATION HEALTH NAVIGATION OUTREACH Action/FYI 1st attempt ACM REJI RN Patient identified by name and date of . Reason for review or outreach: Chart Review Reji Priority Emergency Department Utilization REQUESTED ACTION/FYI: Please see ED Utilization summary below: A follow-up appointment is not noted in patient's record. We are forwarding this patient to [employer] to schedule a [facility] 05/26/24 PCP follow-up appointment. Thank you VM left Due for ER Follow Up Postponed 2 days Reason for Outreach Community Monitoring/Network Navigator Pools AND Phone Line: ACM Patient Contacted: Unable or unnecessary to reach patient: Left message Navigation Signature: Cristy Henderson MA June 04, 2024 1:56 [facility]12-03-2024 NoteHNO ID: [id number] Author: MADDIE KWON RN Service: ? Author Type: Registered Nurse Type: Progress Notes Filed: 06/04/2024 13:50 Note Text: Summary: ED utilization review per request of payor [facility] REJI RN Patient identified by name and date of . Reason for review or outreach: Chart Review Reji Priority Emergency Department Utilization REQUESTED ACTION/FYI: Please see ED Utilization summary below: A follow-up appointment is not noted in patient's record. We are forwarding this patient to [employer] Navigation to schedule a [facility] 05/26/24 PCP follow-up appointment. Thank you Exclusion Criteria - Does not meet exclusion criteria ED DIAGNOSES/REASON(S) FOR ED USE: [facility] 05/26/24-Dx Abdominal pain, Gastroenteritis OTHER FINDINGS/SUMMARY: GI F/U also recommended Patient Attributed To: AVERYE Payer: Luis Fernando RASCON Action Taken: Referrals/Routed: Population Health Navigation: Appointment. Router to [employer] MONITORING PSS POOL [[phone]] Contact made with patient: No, Chart review only. Signature: Maddie DUEÑAS,RN,[facility] [employer] Hel[employer] Contract RN [phone] [facility]12-[facility] NotePatient Outreach ([facility]) ROMAN KUHN ([id number]) 1950 F Date Time Provider Department 06/04[facility] During your visit today, we recorded the following information about you: Maddie Kwon RN 06/04/2024 1:50 PM Signed [facility] REJI RN Patient identified by name and date of . Reason for review or outreach: Chart Review Reji Priority Emergency Department Utilization REQUESTED ACTION/FYI: Please see ED Utilization summary below: A follow-up appointment is not noted in patient's record. We are forwarding this patient to [employer] Navigation to schedule a [facility] 05/26/24 PCP follow-up appointment. Thank you Exclusion Criteria - Does not meet exclusion criteria ED DIAGNOSES/REASON(S) FOR ED USE: [facility] 05/26/24-Dx Abdominal pain, Gastroenteritis OTHER FINDINGS/SUMMARY: GI F/U also recommended Patient Attributed To: [employer] [facility] Action Taken: Referrals/Routed: Population Health Navigation: Appointment. Router to [employer] PSS POOL [[phone]] Contact made with patient: No, Chart review only. Signature: Maddie Kwon MSN,RN,[facility] [employer] Helper Management Contract RN [phone] Cristy Henderson MA 06/04/2024 1:57 PM Signed POPULATION HEALTH NAVIGATION OUTREACH Action/FYI 1st attempt [facility] REJI RN Patient identified by name and date of . Reason for review or outreach: Chart Review Reji Priority Emergency Department Utilization REQUESTED ACTION/FYI: Please see ED Utilization summary below: A follow-up appointment is not noted in patient's record. We are forwarding this patient to [employer] Navigation to schedule a [facility] 05/26/24 PCP follow-up appointment. Thank you VM left Due for ER Follow Up Postponed 2 days Reason for Outreach Community Monitoring/Network Navigator Pools AND Phone Line: [facility] Patient Contacted: Unable or unnecessary to reach patient: Left message Navigation Signature: Cristy Henderson MA June 04, 2024 1:56 PM Cristy Henderson MA 06/04/2024 2:13 PM Signed POPULATION HEALTH NAVIGATION OUTREACH Action/FYI Patient returned call and scheduled ER Follow up Reason for Outreach Community Monitoring/Network Navigator Pools AND Phone Line: ACM Patient Contacted: Spoke to patient/parent/or legal guardian Patient identified by name and : Yes Community Monitoring/Network Navigator Pools AND Phone Line actions taken: Patient scheduled: ER [facility] - ER Follow Up, ED DIAGNOSES/REASON(S) FOR ED USE: , [facility] 05/26/24-Dx Abdominal pain, Gastroenteritis 09/02[facility] - 6 mo f/u 12/02/[address] [facility] with [facility] (I-STAT) - Tobacco use current [Z72.0] 12/02/2024 in [facility] with PETERSON NORTON - Tobacco use current [Z72.0] Navigation Signature: Cristy Henderson MA June 04, 2024 2:12 PM Allergies As of Date: 06/04/2024 Noted Allergy Reaction CECLOR (CEFACLOR) 04/27/2005 Comments: ER for anaphylaxis AVELOX (MOXIFLOXACIN HCL) 03/05/2010 5 - Intolerance BACTRIM (SULFAMETHOXAZOLE) 12/20/2012 16 - Unknown Comments: Insides were raging BIAXIN (CLARITHROMYCIN) 04/27/2005 CELEXA (CITALOPRAM HYDROBROMIDE) 05/16/2005 16 - Unknown CIPRO (CIPROFLOXACIN) 04/27/2005 ENTEX (PHENYLEPHRINE-GUAIFENESIN) 05/16/2005 ERYTHROMYCIN 04/27/2005 LEVSINEX (HYOSCYAMINE SULFATE) 05/16/2005 LIPITOR (ATORVASTATIN CALCIUM) 05/16/2005 NALDECON SENIOR DX (DEXTROMETHORP*04/27/2005 PARAFON FORTE DSC (CHLORZOXAZONE) 05/16/2005 PAXIL (PAROXETINE HCL) 05/16/2005 SULFA (SULFONAMIDE ANTIBIOTICS) 12/17/2012 14 - Other: See Comments SUPRAX (CEFIXIME) 04/27/2005 URISPAS (FLAVOXATE HCL) 05/16/2005 VOLTAREN (DICLOFENAC SODIUM) 05/16/2005 Date Reviewed: 05/17/2024 Reviewed by: Teri Reynolds LPN - Fully Assessed Reason for Visit: ACM REJI RN [[id number]] Cmt: ED utilization review per request of payor Prescriptions as of 06/04/2024 - levothyroxine (SYNTHROID) 112 mcg tablet Take 1 tablet by mouth once daily. Take on empty stomach. For thyroid - pantoprazole DR (PROTONIX) 40 mg tablet Take 1 tablet by mouth daily before breakfast. Take on empty stomach, 1/2 hr before meal. - albuterol HFA (VENTOLIN HFA) 90 mcg/actuation inhaler Inhale 2 Puffs as instructed every 6 hours as needed for wheezing/shortness of breath. - tretinoin (RETIN-A) 0.025 % topical cream Apply 1 application to affected area daily at bedtime. - pravastatin (PRAVACHOL) 40 mg tablet Take 1 tablet by mouth once daily. - famotidine (PEPCID) 20 mg tablet Take 1 tablet by mouth once daily. - BENEFIBER, WHEAT DEXTRIN, ORAL Take 2 teaspoonsful by mouth three times a day. - colestipol (COLESTID) 1 gram tablet take 1 tablet every day - polyethylene glycol 3350 (MIRALAX, GLYCOL (more content not included)... [facility]11-15-2024 History of Present illness Narrative* Elise Crocker APRN.CANCER REGISTRAR - 05/17/2024 2:00 PM EST This is a 73 year old female who presents today with: Patient presents with: Acute Visit: right ear pain HISTORY OF PRESENT ILLNESS: Roman Kuhn is a 73 year old female. Patient presents with: Acute Visit: right ear pain Here in the office for right ear pain. Started about 1 month ago. Was seen by ENT had cerumen removed. Had covid at the end of April. Using albuterol inhalers, claritin D, mucinex, nasacort, and netipot. Medication is helpful. No fever or chills. PAST MEDICAL HISTORY: PAST MEDICAL HISTORY Diagnosis Date Abdominal pain, epigastric Allergic rhinitis, cause unspecified Allergic rhinitis Esophageal reflux IBS (irritable bowel syndrome) constipation primarily Other and unspecified hyperlipidemia Unspecified hypothyroidism PAST SURGICAL HISTORY Procedure Laterality Date ABDOMINAL SURGERY HX BIOPSY BREAST OPEN INCISIONAL 08/14/2017 left stereotactic breast biopsy w/clip placement [facility] COLONOSCOPY FLX DX W/COLLJ SPEC WHEN PFRMD 12/18/2003 Colonoscopy COLONOSCOPY FLX DX W/COLLJ SPEC WHEN PFRMD 03/11/2008 Colonoscopy COLONOSCOPY FLX DX W/COLLJ SPEC WHEN PFRMD 07/19/2012 Colonoscopy COLONOSCOPY FLX DX W/COLLJ SPEC WHEN PFRMD 11/13/2018 Colonoscopy COSMETIC ASSESSMENT EGD 09/01/2020 ESOPHAGOGASTRODUODENOSCOPY TRANSORAL DIAGNOSTIC 03/12/2012 EGD ESOPHAGOGASTRODUODENOSCOPY TRANSORAL DIAGNOSTIC 11/13/2018 EGD EYE SURGERY HX LAPS SURG CHOLECYSTECTOMY W/CHOLANGIOGRAPHY 04/17/2012 Normal IOC PAST SURGICAL HISTORY OF hemmorhoidectomy PAST SURGICAL HISTORY OF 1969 ventral hernia repair - [place] - unknown for mesh PAST SURGICAL HISTORY OF age 27 partial hysterectomy PAST SURGICAL HISTORY OF 1998 benign breast bx PAST SURGICAL HISTORY OF 07/2002 lasik eye surgery PAST SURGICAL HISTORY OF 07/2006 recheck and enhancement on eye surgery PAST SURGICAL HISTORY OF Bilateral 2018 OD - 08/21, OS - 09/[address] Stock. Cataract implants RHINP PRIM LAT&ALAR CRTLGS&/ELVTN NASAL TI Rhinoplasty x 2 VAGINAL HYSTERECTOMY ALLERGIES Ceclor [Cefaclor], Avelox [Moxifloxacin Hcl], Bactrim [Sulfamethoxazole], Biaxin [Clarithromycin], Celexa [Citalopram Hydrobromide], Cipro [Ciprofloxacin], Entex [Phenylephrine-Guaifenesin], Erythromycin, Levsinex [Hyoscyamine Sulfate], Lipitor [Atorvastatin Calcium], Naldecon Senior Dx [D extromethorphan-Guaifenesin], Parafon Forte Dsc [Chlorzoxazone], Paxil [Paroxetine Hcl], Sulfa (Sulfonamide Antibiotics), Suprax [Cefixime], Urispas [Flavoxate Hcl], and Voltaren [Diclofenac Sodium] MEDICATIONS Current Outpatient Medications Medication Sig levothyroxine (SYNTHROID) 112 mcg tablet Take 1 tablet by mouth once daily. Take on empty stomach. For thyroid pantoprazole DR (PROTONIX) 40 mg tablet Take 1 tablet by mouth daily before breakfast. Take on empty stomach, 1/2 hr before meal. albuterol HFA (VENTOLIN HFA) 90 mcg/actuation inhaler Inhale 2 Puffs as instructed every 6 hours asneeded for wheezing/shortness of breath. tretinoin (RETIN-A) 0.025 % topical cream Apply 1 application to affected area daily at bedtime. pravastatin (PRAVACHOL) 40 mg tablet Take 1 tablet by mouth once daily. famotidine (PEPCID) 20 mg tablet Take 1 tablet by mouth once daily. BENEFIBER, WHEAT DEXTRIN, ORAL Take 2 teaspoonsful by mouth three times a day. colestipol (COLESTID) 1 gram tablet take 1 tablet every day polyethylene glycol 3350 (MIRALAX, GLYCOLAX) 17 gram/dose powder Take 17 g by mouth twice daily. triamcinolone acetonide (NASACORT) 55 mcg nasal inhaler Use 2 Sprays in the nose once daily. aspirin(ECOTRIN LOW STRENGTH 81 MG TAB) Take one(1) tablet daily. ONE DAILY MULTI-VITAMIN TAB Take one(1) tablet daily. No current facility-administered medications for this visit. FAMILY HISTORY Problem Relation Age of Onset Prostate Cancer Father Coronary Artery Disease Father late in life; enlarged heart; smoked Heart Mother valve, age 81 Colon Cancer Other none Diabetes Other none Social History Tobacco Use Smoking status: Every Day Current packs/day: 0.75 Average packs/day: 0.8 packs/day for 56.0 years (42.0 ttl pk-yrs) Types: Cigarettes Smokeless tobacco: Never Vaping Use Vaping status: Never Used Substance Use Topics Alcohol use: Yes Comment: occasionally Drug use: No REVIEW OF SYSTEMS GENERAL: No weight loss, malaise or fevers/chills HEENT: + Right Ear Pain NECK: Negative for lumps, goiter, pain and significant neck swelling RESPIRATORY: Negative for cough, hemoptysis, wheezing, dyspnea or shortness of breath CARDIOVASCULAR: Negative for chest pain, leg swelling, orthopnea, or palpitations GI: No nausea, vomiting, or diarrhea/constipation. No hematochezia/melena. No heartburn or reflux symptoms. : No history of dysuria, frequency or incontinence MUSCULOSKELETAL: Negative for joint pain or swelling. SKIN: Negative for lesions, rash, and itching ENDOCRINE: Negative for cold or heat intolerance, polyuria, polydipsia and goiter NEURO: No history of headaches, syncope, paralysis, seizures or tremors MOOD: Negative for depression, anxiety, or suicidal ideation. EXAM: BP 120/88 Pulse 120 Temp 37.4 C (99.4 F) (Tympanic) Resp 16 Wt 57.5 kg (126 lb 12.2 oz) SpO2 98% BMI 23.19 kg/m PHYSICAL EXAM: General Appearance: Well appearing, alert, in no acute distress, well-hydrated, well nourished. Skin: Skin color, texture, turgor normal, no suspicious rashes or lesions. Head: Normocephalic, no masses, lesions, tenderness or abnormalities. Eyes: Anicteric sclera. Extraocular movements are intact. Ears: External ears normal, canals clear, TMs dull. Nose/Sinuses: Positive findings: mucosa erythematous and swollen. Frontal sinus tenderness with palpation. Oropharynx: Lips, mucosa, and tongue normal, teeth and gums normal, oropharynx normal. Neck: Supple, no adenopathy; thyroid symmetric, normal size, no bruits. Lungs: Lungs clear to auscultation. No wheezing, rhonchi, rales. Heart: RRR without murmur, gallop, or rubs. No ectopy. Extremities: No deformities, edema, skin discoloration, clubbing or cyanosis. Good capillary refill. Peripheral Pulses: Normal, Capillary refill <2secs, strong peripheral pulses, Pulses palpable. Neurologic: Gait normal. Sensation grossly intact. ASSESSMENT/PLAN: 1. Bacterial sinusitis - ICD9: 473.9, 041.9, ICD10: J32.9, B96.89 - Will begin treatment with Doxycycline - Start Prednisone taper to help with sinus swelling. - Supportive care with plenty of fluids, rest, and analgesia prn. - DOXYCYCLINE HYCLATE 100 MG TABLET - PREDNISONE 10 MG TABLET Follow-up if no improvement. Discussed treatment plan and patient voices understanding. Patient's questions answered appropriately. Medications and potential side effects were discussed and patient voices understanding. Elise Crocker APRN.CESARIO This note was partially generated using [employer] recognition system. Note was reviewed for accuracy. There may be minor misspellings or grammar miscues with [employer] voice recognition. documented in this encounterHocking Valley [facility]11-15-2024 Instructions* Patient Instructions* Elise Crocker APRN.CNP - 05/17/2024 2:00 PM EST Start Doxycycline, take with food Start Prednisone taper, take in the morning and take with food. Continue with OTC cold and cough medications as needed Stay well hydrated Follow up if no improvement. documented in this encounterHocking Valley Community Hospital11-15-2024 NoteHNO ID: [id number] Author: ELISE CROCKER APRN.CNP Service: ? Author Type: Nurse Practitioner Type: Progress Notes Filed: 05/17/2024 14:25 Note Text: This is a 73 year old female who presents today with: Patient presents with: Acute Visit: right ear pain HISTORY OF PRESENT ILLNESS: Roman Kuhn is a 73 year old female. Patient presents with: Acute Visit: right ear pain Here in the office for right ear pain. Started about 1 month ago. Was seen by ENT had cerumen removed. Had covid at the end of April. Using albuterol inhalers, claritin D, mucinex, nasacort, and netipot. Medication is helpful. No fever or chills. PAST MEDICAL HISTORY: PAST MEDICAL HISTORY Diagnosis Date Abdominal pain, epigastric Allergic rhinitis, cause unspecified Allergic rhinitis Esophageal reflux IBS (irritable bowel syndrome) constipation primarily Other and unspecified hyperlipidemia Unspecified hypothyroidism PAST SURGICAL HISTORY Procedure Laterality Date ABDOMINAL SURGERY HX BIOPSY BREAST OPEN INCISIONAL 08/14/2017 left stereotactic breast biopsy w/clip placement [facility] COLONOSCOPY FLX DX W/COLLJ SPEC WHEN PFRMD 12/18/2003 Colonoscopy COLONOSCOPY FLX DX W/COLLJ SPEC WHEN PFRMD 03/11/2008 Colonoscopy COLONOSCOPY FLX DX W/COLLJ SPEC WHEN PFRMD 07/19/2012 Colonoscopy COLONOSCOPY FLX DX W/COLLJ SPEC WHEN PFRMD 11/13/2018 Colonoscopy COSMETIC ASSESSMENT EGD 09/01/2020 ESOPHAGOGASTRODUODENOSCOPY TRANSORAL DIAGNOSTIC 03/12/2012 EGD ESOPHAGOGASTRODUODENOSCOPY TRANSORAL DIAGNOSTIC 11/13/2018 EGD EYE SURGERY HX LAPS SURG CHOLECYSTECTOMY W/CHOLANGIOGRAPHY 04/17/2012 Normal IOC PAST SURGICAL HISTORY OF hemmorhoidectomy PAST SURGICAL HISTORY OF 1969 ventral hernia repair - [place] - unknown for mesh PAST SURGICAL HISTORY OF age 27 partial hysterectomy PAST SURGICAL HISTORY OF 1998 benign breast bx PAST SURGICAL HISTORY OF 07/2002 lasik eye surgery PAST SURGICAL HISTORY OF 07/2006 recheck and enhancement on eye surgery PAST SURGICAL HISTORY OF Bilateral 2018 OD - 08/21, OS - 09/[address] Stock. Cataract implants RHINP PRIM LATANDALAR CRTLGSAND/ELVTN NASAL TI Rhinoplasty x 2 VAGINAL HYSTERECTOMY ALLERGIES Ceclor [Cefaclor], Avelox [Moxifloxacin Hcl], Bactrim [Sulfamethoxazole], Biaxin [Clarithromycin], Celexa [Citalopram Hydrobromide], Cipro [Ciprofloxacin], Entex [Phenylephrine-Guaifenesin], Erythromycin, Levsinex [Hyoscyamine Sulfate], Lipitor [Atorvastatin Calcium], Naldecon Senior Dx [Dextromethorphan-Guaifenesin], Parafon Forte Dsc [Chlorzoxazone], Paxil [Paroxetine Hcl], Sulfa (Sulfonamide Antibiotics), Suprax [Cefixime], Urispas [Flavoxate Hcl], and Voltaren [Diclofenac Sodium] MEDICATIONS Current Outpatient Medications Medication Sig levothyroxine (SYNTHROID) 112 mcg tablet Take 1 tablet by mouth once daily. Take on empty stomach. For thyroid pantoprazole DR (PROTONIX) 40 mg tablet Take 1 tablet by mouth daily before breakfast. Take on empty stomach, 1/2 hr before meal. albuterol HFA (VENTOLIN HFA) 90 mcg/actuation inhaler Inhale 2 Puffs as instructed every 6 hours as needed for wheezing/shortness of breath. tretinoin (RETIN-A) 0.025 % topical cream Apply 1 application to affected area daily at bedtime. pravastatin (PRAVACHOL) 40 mg tablet Take 1 tablet by mouth once daily. famotidine (PEPCID) 20 mg tablet Take 1 tablet by mouth once daily. BENEFIBER, WHEAT DEXTRIN, ORAL Take 2 teaspoonsful by mouth three times a day. colestipol (COLESTID) 1 gram tablet take 1 tablet every day polyethylene glycol 3350 (MIRALAX, GLYCOLAX) 17 gram/dose powder Take 17 g by mouth twice daily. triamcinolone acetonide (NASACORT) 55 mcg nasal inhaler Use 2 Sprays in the nose once daily. aspirin(ECOTRIN LOW STRENGTH 81 MG TAB) Take one(1) tablet daily. ONE DAILY MULTI-VITAMIN TAB Take one(1) tablet daily. No current facility-administered medications for this visit. FAMILY HISTORY Problem Relation Age of Onset Prostate Cancer Father Coronary Artery Disease Father late in life; enlarged heart; smoked Heart Mother valve, age 81 Colon Cancer Other none Diabetes Other none Social History Tobacco Use Smoking status: Every Day Current packs/day: 0.75 Average packs/day: 0.8 packs/day for 56.0 years (42.0 ttl pk-yrs) Types: Cigarettes Smokeless tobacco: Never Vaping Use Vaping status: Never Used Substance Use Topics Alcohol use: Yes Comment: occasionally Drug use: No REVIEW OF SYSTEMS GENERAL: No weight loss, malaise or fevers/chills HEENT: + Right Ear Pain NECK: Negative for lumps, goiter, pain and significant neck swelling RESPIRATORY: Negative for cough, hemoptysis, wheezing, dyspnea or shortness of breath CARDIOVASCULAR: Negative for chest pain, leg swelling, orthopnea, or palpitations GI: No nausea, vomiting, or diarrhea/constipation. No hematochezia/melena. No heartburn or reflux symptoms. : No history of dy (more content not included)...[facility] 05-13-2024 History of Present illness Narrative* Belinda Jason PA-C - 05/13/2024 4:04 PM ESTAssociated Order(s): Large Joint Arthro/Inj: bilateral knee joints Post-Procedure Diagnose(s): Primary osteoarthritis of both knees Belinda Jason PA-C Department of Orthopaedics Orthopaedics [address] [facility] [address] Dept: [phone] Dept May 13, 2024 CHIEF COMPLAINT: No chief complaint on file.. ASSESSMENT: M17.0 Primary osteoarthritis of both knees (primary encounter diagnosis) SUMMARY/PLAN: Patient presents for repeat bilateral knee corticosteroid injections, last set of injections were in October 2022, she found them to be very effective. Pain is slowly starting to now return, she does use Thera works on a regular basis and does stretching exercises. Will repeat injections today. Large Joint Arthro/Inj: bilateral knee joints Informed Consent Consent Obtained: Verbal [place] Protocol A moment to CARE was completed. SIGN IN Sign in communication not applicable due to emergent procedure. Personnel directly involved with the procedure wore the appropriate PPE. Special Equipment: N/A Patient/Surrogate Stated/Verified: Patient name, Date of , Relevant allergies and Intended procedure TIME OUT Intended patient and procedure match the source document(s). Consent documented and matches the intended procedure. Relevant labs, photos, and/or imaging studies have been reviewed. Correct side/site marked and visible. Medications required for procedure verified. No fire risk assessment and interventions applicable. No implant(s) inserted. 05/13/2024 4:05 PM The procedure site was prepped in the usual sterile fashion. Site: bilateral knee joints Medications (Right): 6 mg betamethasone acetate-betamethasone sodium phosphate 6 mg/mL Medications (Left): 6 mg betamethasone acetate-betamethasone sodium phosphate 6 mg/mL Anesthetics (Right): 5 mL lidocaine (PF) 10 mg/mL (1 %) Anesthetics (Left): 5 mL lidocaine (PF) 10 mg/mL (1 %) Outcome: Tolerated well, no immediate complications Post-injection instructions were reviewed with the patient and the patient voiced understanding of these instructions. SIGN OUT No specimen collected. No instruments, equipment or retained foreign bodies applicable. Post-procedure follow-up management communicated and Plan of Care Visit completed when applicable Ms. Roman Kuhn was advised as to contrast therapies and/or to take analgesics/anti-inflammatories as needed and all contraindications were reviewed. Supporting Information Below: Medications: Current Outpatient Medications Medication Sig levothyroxine (SYNTHROID) 112 mcg tablet Take 1 tablet by mouth once daily. Take on empty stomach. For thyroid pantoprazole DR (PROTONIX) 40 mg tablet Take 1 tablet by mouth daily before breakfast. Take on empty stomach, 1/2 hr before meal. albuterol HFA (VENTOLIN HFA) 90 mcg/actuation inhaler Inhale 2 Puffs as instructed every 6 hours asneeded for wheezing/shortness of breath. tretinoin (RETIN-A) 0.025 % topical cream Apply 1 application to affected area daily at bedtime. pravastatin (PRAVACHOL) 40 mg tablet Take 1 tablet by mouth once daily. famotidine (PEPCID) 20 mg tablet Take 1 tablet by mouth once daily. BENEFIBER, WHEAT DEXTRIN, ORAL Take 2 teaspoonsful by mouth three times a day. colestipol (COLESTID) 1 gram tablet take 1 tablet every day polyethylene glycol 3350 (MIRALAX, GLYCOLAX) 17 gram/dose powder Take 17 g by mouth twice daily. triamcinolone acetonide (NASACORT) 55 mcg nasal inhaler Use 2 Sprays in the nose once daily. aspirin(ECOTRIN LOW STRENGTH 81 MG TAB) Take one(1) tablet daily. ONE DAILY MULTI-VITAMIN TAB Take one(1) tablet daily. No current facility-administered medications for this visit. Allergies: Ceclor [Cefaclor], Avelox [Moxifloxacin Hcl], Bactrim [Sulfamethoxazole], Biaxin [Clarithromycin], Celexa [Citalopram Hydrobromide], Cipro [Ciprofloxacin], Entex [Phenylephrine-Guaifenesin], Erythromycin, Levsinex [Hyoscyamine Sulfate], Lipitor [Atorvastatin Calcium], Naldecon Senior Dx [ Dextromethorphan-Guaifenesin], Parafon Forte Dsc [Chlorzoxazone], Paxil [Paroxetine Hcl], Sulfa (Sulfonamide Antibiotics), Suprax [Cefixime], Urispas [Flavoxate Hcl], and Voltaren [Diclofenac Sodium] This note was partially generated using [employer] voice recognition system, and there may be some incorrect words, spellings, and punctuation that were not noted in checking the note before saving. Belinda Jason PA-C * Candice Gonzales LPN - 05/13/2024 3:41 PM EST AMB ROOMING INTAKE FLOWSHEET DATA Pain Pain Level: 8 Pain Location: Knee-Left Description: Stabbing, Burning Duration Amount of Time: 2 Duration Units: Months Frequency: Continuous Intervention/Comfort measure: Medication, Heat (thera works and hot bath) documented in this encounterH[facility]11[facility] History of Present illness Narrative* Ute Patel RT(R) - 05/13/2024 2:40 PM EST Radiology Service Progress Note PATIENT NAME: Roman Kuhn DATE OF SERVICE: May 13, 2024 TIME: 9:26 PM PATIENT IDENTITY VERIFICATION COMPLETED USING TWO (2) IDENTIFIERS: Name and Date of confirmedby patient verbally. FALL SCREENING: Has the patient had 2 falls in the last year or 1 fall with injury or currently using an Ambulatory Assistive Device (Walker, Cane, Wheelchair, Crutches, etc.)? No PATIENT GENDER DATA: Female. status: : No status: NO. PATIENT RELEVANT IMPLANT DATA REVIEWED: Not Applicable PATIENT PRESENTS WITH AN IMPLANTABLE OR ATTACHED REGISTERED NURSE AMBULATORY: No RADIOLOGY DEPARTMENT: General X-ray: Exam(s) Completed: Lower Extremity X- Ray(s): Knee, AP / Lat / Tunne / Merchant Left and Wt. Bearing PERIPHERAL IV DATA: Not applicable SIGNED BY: RT [place](R) May 13, 2024 9:26 PM documented in this encounterHocking Valley [facility]11-11-2024 Telephone encounter Note * Telephone Encounter - Rob Cardenas APRN.CNP - 05/13/2024 12:01 PM EST The following approved medication requests have been transmitted electronically. Requested Prescriptions Pending Prescriptions Disp Refills levothyroxine (SYNTHROID) 112 mcg tablet 90 tablet 3 Sig: Take 1 tablet by mouth once daily. Take on empty stomach. For thyroid Rob Cardenas APRN.CNP [facility]11-11-[facility]24 Miscellaneous Notes* Telephone Encounter - Rob Cardenas APRN.CNP - 05/13/2024 12:01 PM EST The following approved medication requests have been transmitted electronically. Requested Prescriptions Pending Prescriptions Disp Refills levothyroxine (SYNTHROID) 112 mcg tablet 90 tablet 3 Sig: Take 1 tablet by mouth once daily. Take on empty stomach. For thyroid Rob Cardenas APRN.CNP * Telephone Encounter - Kiley Jensen - 05/13/2024 11:56 AM EST Patient has been identified by name and date of : Yes Patient phones for refill(s): Requested Prescriptions Pending Prescriptions Disp Refills levothyroxine (SYNTHROID) 112 mcg tablet 90 tablet 3 Sig: Take 1 tablet by mouth once daily. Take on empty stomach. For thyroid Date of last office visit in primary care: 03/15/2024 Date of next office visit in primary care: 09/02/2024 Please advise. Thank you. Kiley Jensen. documented in this encounterHocking Valley [facility]11-11-2024 Telephone encounter Note * Telephone Encounter - Kiley Jensen - 05/13/2024 11:56 AM EST Patient has been identified by name and date of : Yes Patient phones for refill(s): Requested Prescriptions Pending Prescriptions Disp Refills levothyroxine (SYNTHROID) 112 mcg tablet 90 tablet 3 Sig: Take 1 tablet by mouth once daily. Take on empty stomach. For thyroid Date of last office visit in primary care: 03/15/2024 Date of next office visit in primary care: 09/02/2024 Please advise. Thank you. Kiley Jensen. [facility]10[facility] History of Present illness Narrative* Mohinder House APRN.CNP - 04/24/2024 7:02 PM EDT Images from the original note were not included. Subjective HPI Nontoxic-appearing female presents urgent care chief complaint insect sting. States was stung by yellow jacket 3 days ago. Presents today for evaluation. Area is pruritic. Has been red and swollen since insect sting. OTC medication hydrocortisone. Helped some. Overall feels well. No nausea vomitingshortness of breath or fevers. No pain. Most present today is pruritus. Past medical history prescription medications allergies reviewed. .Patient presents with: bee sting right forearm: Red x 3 days PAST MEDICAL HISTORY Diagnosis Date Abdominal pain, epigastric Allergic rhinitis, cause unspecified Allergic rhinitis Esophageal reflux IBS (irritable bowel syndrome) constipation primarily Other and unspecified hyperlipidemia Unspecified hypothyroidism PAST SURGICAL HISTORY Procedure Laterality Date ABDOMINAL SURGERY HX BIOPSY BREAST OPEN INCISIONAL 08/14/2017 left stereotactic breast biopsy w/clip placement [facility] COLONOSCOPY FLX DX W/COLLJ SPEC WHEN PFRMD 12/18/2003 Colonoscopy COLONOSCOPY FLX DX W/COLLJ SPEC WHEN PFRMD 03/11/2008 Colonoscopy COLONOSCOPY FLX DX W/COLLJ SPEC WHEN PFRMD 07/19/2012 Colonoscopy COLONOSCOPY FLX DX W/COLLJ SPEC WHEN PFRMD 11/13/2018 Colonoscopy COSMETIC ASSESSMENT EGD 09/01/2020 ESOPHAGOGASTRODUODENOSCOPY TRANSORAL DIAGNOSTIC 03/12/2012 EGD ESOPHAGOGASTRODUODENOSCOPY TRANSORAL DIAGNOSTIC 11/13/2018 EGD EYE SURGERY HX LAPS SURG CHOLECYSTECTOMY W/CHOLANGIOGRAPHY 04/17/2012 Normal IOC PAST SURGICAL HISTORY OF hemmorhoidectomy PAST SURGICAL HISTORY OF 1969 ventral hernia repair - [place] - unknown for mesh PAST SURGICAL HISTORY OF age 27 partial hysterectomy PAST SURGICAL HISTORY OF 1998 benign breast bx PAST SURGICAL HISTORY OF 07/2002 lasik eye surgery PAST SURGICAL HISTORY OF 07/2006 recheck and enhancement on eye surgery PAST SURGICAL HISTORY OF Bilateral 2018 OD - 08/21, OS - 09/[address] Stock. Cataract implants RHINP PRIM LAT&ALAR CRTLGS&/ELVTN NASAL TI Rhinoplasty x 2 VAGINAL HYSTERECTOMY ALLERGIES Ceclor [Cefaclor], Avelox [Moxifloxacin Hcl], Bactrim [Sulfamethoxazole], Biaxin [Clarithromycin], Celexa [Citalopram Hydrobromide], Cipro [Ciprofloxacin], Entex [Phenylephrine-Guaifenesin], Erythromycin, Levsinex [Hyoscyamine Sulfate], Lipitor [Atorvastatin Calcium], Naldecon Senior Dx [D extromethorphan-Guaifenesin], Parafon Forte Dsc [Chlorzoxazone], Paxil [Paroxetine Hcl], Sulfa (Sulfonamide Antibiotics), Suprax [Cefixime], Urispas [Flavoxate Hcl], and Voltaren [Diclofenac Sodium] MEDICATIONS pantoprazole DR (PROTONIX) 40 mg tablet Take 1 tablet by mouth daily before breakfast. Take on empty stomach, 1/2 hr before meal. albuterol HFA (VENTOLIN HFA) 90 mcg/actuation inhaler Inhale 2 Puffs as instructed every 6 hours asneeded for wheezing/shortness of breath. tretinoin (RETIN-A) 0.025 % topical cream Apply 1 application to affected area daily at bedtime. pravastatin (PRAVACHOL) 40 mg tablet Take 1 tablet by mouth once daily. famotidine (PEPCID) 20 mg tablet Take 1 tablet by mouth once daily. BENEFIBER, WHEAT DEXTRIN, ORAL Take 2 teaspoonsful by mouth three times a day. colestipol (COLESTID) 1 gram tablet take 1 tablet every day levothyroxine (SYNTHROID) 112 mcg tablet Take 1 tablet by mouth once daily. Take on empty stomach. For thyroid polyethylene glycol 3350 (MIRALAX, GLYCOLAX) 17 gram/dose powder Take 17 g by mouth twice daily. triamcinolone acetonide (NASACORT) 55 mcg nasal inhaler Use 2 Sprays in the nose once daily. aspirin(ECOTRIN LOW STRENGTH 81 MG TAB) Take one(1) tablet daily. ONE DAILY MULTI-VITAMIN TAB Take one(1) tablet daily. FAMILY HISTORY Problem Relation Age of Onset Prostate Cancer Father Coronary Artery Disease Father late in life; enlarged heart; smoked Heart Mother valve, age 81 Colon Cancer Other none Diabetes Other none Social History Tobacco Use Smoking status: Every Day Current packs/day: 0.75 Average packs/day: 0.8 packs/day for 56.0 years (42.0 ttl pk-yrs) Types: Cigarettes Smokeless tobacco: Never Vaping Use Vaping status: Never Used Substance Use Topics Alcohol use: Yes Comment: occasionally Drug use: No BP 128/76 Pulse 107 Temp 37.2 C (98.9 F) (Tympanic) Resp 16 Wt 58.9 kg (129 lb 13.6 oz) SpO2 98% BMI 23.75 kg/m Review of Systems Constitutional: Negative for chills, fever and malaise/fatigue. Musculoskeletal: Negative for back pain, falls, joint pain, myalgias and neck pain. Skin: Positive for itching. Negative for rash. Neurological: Negative for dizziness, loss of consciousness, weakness and headaches. Objective Physical Exam Constitutional: General: She is not in acute distress. Appearance: She is not toxic-appearing. HENT: Head: Normocephalic. Nose: Nose normal. Eyes: Pupils: Pupils are equal, round, and reactive to light. Cardiovascular: Rate and Rhythm: Normal rate. Pulmonary: Effort: Pulmonary effort is normal. No respiratory distress. Musculoskeletal: Cervical back: Normal range of motion. Skin: General: Skin is warm and dry. Comments: 10 cm x 5 cm area of erythema noted. Mild edema noted. Area representing insect bite to center of area noted. No remote redness or adenopathy. Neurological: General: No focal deficit present. Mental Status: She is alert. ASSESSMENT/PLAN: 1. Accidental insect sting - ICD9: 989.5, E905.5, ICD10: T63.481A, W57.XXXA Diagnosed with accidental insect sting. No evidence of bacterial infection noted. Placed on steroidcream. Red flags reevaluation discussed. Patient was educated on supportive therapies. Patient will follow up with primary care provider as needed. Patient was instructed to immediately proceed to emergency room for any new, worsening, or symptoms lasting longer than anticipated. The patient's clinical presentation is otherwise unremarkable at this time. Based on exam and clinical finding, the patient is stable for discharge. Plan of care was discussed with patient. Patient verbalizes understanding and agrees to plan of care. This note was generated using [employer] software. It may contain errors in wording, punctuation, or spelling. Mohinder House APRN.CESARIO documented in this encounterHocking Valley [facility]10-14-2024 Telephone encounter Note * Telephone Encounter - Radha Garcia RN - 04/15/2024 1:53 PM EDT The patient has been identified by name and date of : Yes Caregiver verified no other encounters exist for this prescription request: Yes Caregiver confirmed with patient/requestor that no other refills are due, in the near future, with this provider at this time: Yes The last office visit in the department: 03/15/2024 Does the patient have a future office visit with this provider/department: Yes 09/02/2024 Requested Prescriptions Pending Prescriptions Disp Refills pantoprazole DR (PROTONIX) 40 mg tablet 90 tablet 3 Sig: Take 1 tablet by mouth daily before breakfast. Take on empty stomach, 1/2 hr before meal. Radha Garcia RN April 15, 2024 1:53 PM [facility]-14-[facility] Miscellaneous Notes* Telephone Encounter - Radha Garcia RN - 04/15/2024 1:53 PM EDT The patient has been identified by name and date of : Yes Caregiver verified no other encounters exist for this prescription request: Yes Caregiver confirmed with patient/requestor that no other refills are due, in the near future, with this provider at this time: Yes The last office visit in the department: 03/15/2024 Does the patient have a future office visit with this provider/department: Yes 09/02/2024 Requested Prescriptions Pending Prescriptions Disp Refills pantoprazole DR (PROTONIX) 40 mg tablet 90 tablet 3 Sig: Take 1 tablet by mouth daily before breakfast. Take on empty stomach, 1/2 hr before meal. Radha Garcia RN April 15, 2024 1:53 PM documented in this encounterHocking [facility]09-15-2024 Telephone encounter Note * Telephone Encounter - Rob Cardenas APRN.CNP - 03/17/2024 7:35 PM EDT Noted and agree Rob [facility]09-15-[facility] Miscellaneous Notes* Telephone Encounter - Rob Cardenas APRN.CNP - 03/17/2024 7:35 PM EDT Noted and agree Rob * Telephone Encounter - Marija Qiu LPN - 03/16/2024 10:55 AM EDT Pt calling asking for results of covid test. She was told it was positive. She reports she has been tired for 2 weeks. Runny nose and aching started 03/13/24. She doesn't think she is interested in any other treatment.per note pt was already told she was outof the treatment window. She feels the steroid his started to help her head. documented in this encounterHocking Valley [facility]09-14-2024 Telephone encounter Note * Telephone Encounter - Marija Qiu LPN - 03/16/2024 10:55 AM EDT Pt calling asking for results of covid test. She was told it was positive. She reports she has been tired for 2 weeks. Runny nose and aching started 03/13/24. She doesn't think she is interested in any other treatment.per note pt was already told she was outof the treatment window. She feels the steroid his started to help her head. [facility] History of Present illness Narrative* Rob Cardenas APRN.CESARIO - 03/15/2024 8:00 AM EDT Chief Complaint Patient presents with: Nasal Congestion: With chest congestion x1 mo Head congestion starting Monday GALO Kuhn is a 73 year old female who presents here today for Above Complaints. Patient is here with complaints of nasal, chest congestion. Chest congestion has been present for 1month. She is a smoker. When this occurs she cuts back on her cigarette use. She uses albuterol as needed. She needs a refill. Starting Monday she started to have head congestion. Her sinus cavity istender, feels full. Her ears also feel full. Around , Monday she started to have body aches, low-grade fever. Also has a cough. She has a headache. She did not self swab for COVID-19 at home as she states that she does not know how to. Is agreeable to be swabbed. Understands that today is day 5 so of symptoms and by time results come back tomorrow she will be out of the treatment window for Paxlovid. History of allergy to Ceclor but has tolerated Augmentin without difficulty. Past medical history, appointments, medications, allergies reviewed. EXAM: BP 110/76 Pulse 114 Temp 36.9 C (98.4 F) Wt 57.5 kg (126 lb 12.2 oz) SpO2 98% BMI 23.19 kg/m General Appearance: Well appearing, alert, in no acute distress, well-hydrated, well nourished.. Ears: External ears normal, canals clear. Nose/Sinuses: Positive findings: mucosa erythematous and swollen, maxillary sinus tenderness. Oropharynx: Lips, mucosa, and tongue normal, teeth and gums normal, oropharynx normal. Lungs: Positive findings: rhonchi Cough. Heart: RRR without murmur, gallop, or rubs. No ectopy. ASSESSMENT/PLAN: 1. Sinobronchitis - ICD9: 473.9, 490, ICD10: J32.9, J40 (primary diagnosis) Chest congestion ongoing for 1 month. She is a smoker. Can continue use of albuterol. Will cover with Augmentin. Prednisone for inflammation. Rule out COVID. Again, discussed with the patient that when results are known tomorrow will be out of treatment window. - AMOXICILLIN 875 MG-POTASSIUM CLAVULANATE 125 MG TABLET - PREDNISONE 10 MG TABLET - COVID & INFLUENZA A/B & RSV PCR, ROUTINE 2. Body aches - ICD9: 780.96, ICD10: R52 -Viral respiratory versus COVID. Can continue to use Tylenol. - COVID & INFLUENZA A/B & RSV PCR, ROUTINE 3. Fever and chills - ICD9: 780.60, ICD10: R50.9 -Low-grade fever at home, rule out COVID. - COVID & INFLUENZA A/B & RSV PCR, ROUTINE Rob Cardenas APRN.CESARIO This note was partly generated using [employer] voice recognition dictation and may contain some misspelled or inaccurate words missed on review. documented in this encounterHocking [facility]09-04-2024 Telephone encounter Note * Telephone Encounter - Sabrina Sharpe MA - 03/06/2024 3:52 PM EDT Patient was notified Sabrina Sharpe MA [facility]09-04-2024 Miscellaneous Notes* Telephone Encounter - Sabrina Sharpe MA - 03/06/2024 3:52 PM EDT Patient was notified Sabrina Sharpe MA * Telephone Encounter - Marija Qiu LPN - 03/06/2024 12:02 PM EDT Roman Kuhn (Chakraborty: [id number]) PA Rx #: [id number] Need Help? Call us at Outcome Approved on March 05 by Luis Fernando [facility] 2016 PA Case: [id number], Status: Approved, Coverage Starts on: 07/03/2023 12:00:00 AM, Coverage Ends on: 07/02/2024 12:00:00 AM. Questions? Contact . Authorization Expiration Date: 07/01/2024 Drug Tretinoin 0.025% cream ePA cloud logo Form Luis Fernando Electronic PA Form (Required Documentation) * Telephone Encounter - Sabrina Sharpe MA - 03/05/2024 3:33 PM EDT Received PA request from [employer] for Tretinoin cream Prior Authorization has been completed online at [employer] for Tretinoin, will await response. [id number] Please keep encounter open until final decision has been received and documented from insurance company. Sabrina Sharpe MA documented in this encounterHocking Valley [facility]09-04-2024 Telephone encounter Note * Telephone Encounter - Marija Qiu LPN - 03/06/2024 12:02 PM EDT Roman Kuhn (Chakraborty: [id number]) PA Rx #: [id number] Need Help? Call us at Outcome [facility] Case: [id number], Status: Approved, Coverage Starts on: 07/03/2023 12:00:00 AM, Coverage Ends on: 07/02/2024 12:00:00 AM. Questions? Contact . Authorization Expiration Date: 07/01/2024 Drug Tretinoin 0.025% cream ePA [facility] logo Form [employer] Electronic PA Form (Required Documentation) [facility]09-03-[facility] Telephone encounter Note* Telephone Encounter - Sabrina Sharpe MA - 03/05/2024 3:33 PM EDT Received PA request from [employer] for Tretinoin cream Prior Authorization has been completed online at [employer] for Tretinoin, will await response. [id number] Please keep encounter open until final decision has been received and documented from insurance company. Sabrina Sharpe MA [facility]08-26-[facility] History of Present illness Narrative* Pepe Reyes MD - 02/26/2024 1:00 PM EDT Chief Complaint Patient presents with: F/U 6 Month HPI Roman Kuhn is a 73 year old female who presents here today for a month follow up. Pt here today for a 6 month follow up. Labs in to complete. Continued smoker about 1 ppd. Thinks about quitting daily, just can't do it. Had Lung Cancer screening on 11/20/23. GI/GERD - Chronic hx of IBS. Has intermittent flare ups with being off her diet or eating things she shouldn't. Pt current taking Miralax BID, Benefiber, Protonix 40 mg once daily, Pepcid 20 mg once daily and Colestid 1 gram daily. Lipids/Glucose - Tries to watch her diet. Exercises by doing 15 minutes of stretching and is activemoving around. Taking Pravastatin 40 mg once daily. Currently on no medications for elevated glucose. Does like sugar, uses sugar in coffee/tea. Thyroid - Stable on current regimen of Synthroid 112 mcg once daily. Denies any missed dosages. Following with Derm, Dr. Stock for seborrheic keratosis and toenail fungus. Was being treated with Diflucan, thought she was seeing improvement. Issues with sacroiliac joint and following with Chiropractor and went through their program. Tremor in right arm/hand. This happens periodically, has been doing a lot of painting at home. - Anxiety/Depression screening completed, negative. Does have Adv Dir/Living Will. At present time, unsure if she will get Covid vaccine. Will check with Insurance regarding Shingles/RSV vaccine. Past medical history, appointments, medications, allergies reviewed. Previous Medical History PAST MEDICAL HISTORY No date: Abdominal pain, epigastric No date: Allergic rhinitis, cause unspecified Comment: Allergic rhinitis No date: Esophageal reflux No date: IBS (irritable bowel syndrome) Comment: constipation primarily No date: Other and unspecified hyperlipidemia No date: Unspecified hypothyroidism Previous Surgical History PAST SURGICAL HISTORY No date: ABDOMINAL SURGERY HX 08/14/2017: BIOPSY BREAST OPEN INCISIONAL Comment: left stereotactic breast biopsy w/clip placement [facility] 12/18/2003: COLONOSCOPY FLX DX W/COLLJ SPEC WHEN PFRMD Comment: Colonoscopy 03/11/2008: COLONOSCOPY FLX DX W/COLLJ SPEC WHEN PFRMD Comment: Colonoscopy 07/19/2012: COLONOSCOPY FLX DX W/COLLJ SPEC WHEN PFRMD Comment: Colonoscopy 11/13/2018: COLONOSCOPY FLX DX W/COLLJ SPEC WHEN PFRMD Comment: Colonoscopy No date: COSMETIC ASSESSMENT 09/01/2020: EGD 03/12/2012: ESOPHAGOGASTRODUODENOSCOPY TRANSORAL DIAGNOSTIC Comment: EGD 11/13/2018: ESOPHAGOGASTRODUODENOSCOPY TRANSORAL DIAGNOSTIC Comment: EGD No date: EYE SURGERY HX 04/17/2012: LAPS SURG CHOLECYSTECTOMY W/CHOLANGIOGRAPHY Comment: Normal IOC No date: PAST SURGICAL HISTORY OF Comment: hemmorhoidectomy 1970: PAST SURGICAL HISTORY OF Comment: ventral hernia repair - [place] - unknown for mesh age 27: PAST SURGICAL HISTORY OF Comment: partial hysterectomy 1998: PAST SURGICAL HISTORY OF Comment: benign breast bx 07/2002: PAST SURGICAL HISTORY OF Comment: lasik eye surgery 07/2006: PAST SURGICAL HISTORY OF Comment: recheck and enhancement on eye surgery 2019: PAST SURGICAL HISTORY OF; Bilateral Comment: OD - 08/21, OS - 09/[address] Stock. Cataract implants No date: RHINP PRIM LAT&ALAR CRTLGS&/ELVTN NASAL TI Comment: Rhinoplasty x 2 No date: VAGINAL HYSTERECTOMY Family History FAMILY HISTORY Problem Relation Age of Onset Prostate Cancer Father Coronary Artery Disease Father late in life; enlarged heart; smoked Heart Mother valve, age 81 Colon Cancer Other none Diabetes Other none Patient Allergies ALLERGIES Allergen Reactions Ceclor [Cefaclor] ER for anaphylaxis Avelox [Moxifloxaci* Intolerance Bactrim [Sulfametho* Unknown Insides were raging Biaxin [Clarithromy* Celexa [Citalopram * Unknown Cipro [Ciprofloxaci* Entex [Phenylephrin* Erythromycin Levsinex [Hyoscyami* Lipitor [Atorvastat* Naldecon Senior Dx * Parafon Forte Dsc [* Paxil [Paroxetine H* Sulfa (Sulfonamide * Other: See Comments Suprax [Cefixime] Urispas [Flavoxate * Voltaren [Diclofena* Current Medications Current Outpatient Medications on File Prior to Visit Medication Sig famotidine (PEPCID) 20 mg tablet Take 1 tablet by mouth once daily. BENEFIBER, WHEAT DEXTRIN, ORAL Take 2 teaspoonsful by mouth three times a day. colestipol (COLESTID) 1 gram tablet take 1 tablet every day fluconazole (DIFLUCAN) 200 mg tablet 2 tablets on Monday once weekly for 3 months (Patient not taking: Reported on 11/20/2023) levothyroxine (SYNTHROID) 112 mcg tablet Take 1 tablet by mouth once daily. Take on empty stomach. For thyroid pantoprazole DR (PROTONIX) 40 mg tablet TAKE 1 TABLET BY MOUTH DAILY BEFORE BREAKFAST. TAKE ON EMPTY STOMACH, 1/2 HR BEFORE MEAL. pravastatin (PRAVACHOL) 40 mg tablet take 1 tablet every day albuterol HFA (VENTOLIN HFA) 90 mcg/actuation inhaler Inhale 2 Puffs as instructed every 6 hours asneeded for wheezing/shortness of breath. tretinoin (RETIN-A) 0.025 % topical cream Apply 1 application to affected area daily at bedtime. polyethylene glycol 3350 (MIRALAX, GLYCOLAX) 17 gram/dose powder Take 17 g by mouth twice daily. triamcinolone acetonide (NASACORT) 55 mcg nasal inhaler Use 2 Sprays in the nose once daily. aspirin(ECOTRIN LOW STRENGTH 81 MG TAB) Take one(1) tablet daily. ONE DAILY MULTI-VITAMIN TAB Take one(1) tablet daily. No current facility-administered medications on file prior to visit. Social History Social History Tobacco Use Smoking status: Every Day Current packs/day: 0.75 Average packs/day: 0.8 packs/day for 56.0 years (42.0 ttl pk-yrs) Types: Cigarettes Smokeless tobacco: Never Vaping Use Vaping status: Never Used Substance Use Topics Alcohol use: Yes Comment: occasionally Drug use: No EXAM: BP 104/64 (BP Site: Left Arm, BP Position: Sitting, BP Cuff Size: Regular Adult) Pulse 88 Resp 18 Wt 57.9 kg (127 lb 10.3 oz) BMI 23.35 kg/m General Appearance: Well appearing, alert, in no acute distress, well-hydrated, well nourished.. Lungs: Lungs clear to auscultation. No wheezing, rhonchi, rales.. Heart: RRR without murmur, gallop, or rubs. No ectopy. Health Maintenance List Depression Screening Never done Anxiety Screening Never done RSV Vaccine(1 - 1-dose 60+ series) Never done Shingrix Vaccine(2 of 3) due on 08/08/2012 Advance Directive Discussion due on 07/03/2023 Covid-19 Vaccine( season) due on 08/31/2023 Influenza Vaccine(1) due on 03/03/2024 Annual PCP Team Chronic Disease Visit due on 09/18/2024 Lung Cancer Screening due on 11/19/2024 Diabetes Screening due on 02/18/2027 Colorectal Cancer Screening due on 11/13/2028 Lipid Screening due on 02/18/2029 DTaP,Tdap,Td Vaccine(3 - Td or Tdap) due on 12/13/2029 Bone Density Screening Completed Hepatitis C Screening Completed Pneumococcal Vaccine: 65+ Completed Mammogram Screening Discontinued Data reviewed Appointment on 02/19/2024 Component Date Value Protein, Total 02/19/2024 6.6 Albumin 02/19/2024 4.1 Calcium, Total 02/19/2024 9.8 Bilirubin, Total 02/19/2024 0.3 Alkaline Phosphatase 02/19/2024 81 AST 02/19/2024 24 ALT 02/19/2024 19 Glucose 02/19/2024 108 (H) BUN 02/19/2024 13 Creatinine 02/19/2024 0.72 Sodium 02/19/2024 142 Potassium 02/19/2024 4.4 Chloride 02/19/2024 103 CO2 02/19/2024 26 Anion Gap 02/19/2024 13 Estimated Glomerular Adan* 02/19/2024 87 Cholesterol, Total 02/19/2024 194 Triglyceride 02/19/2024 128 HDL Cholesterol 02/19/2024 56 Non HDL Cholesterol 02/19/2024 138 (H) Fasting Time 02/19/2024 12 VLDL Cholesterol 02/19/2024 26 TC:HDL Ratio 02/19/2024 3.46 LDL Cholesterol 02/19/2024 112 (H) LDL:HDL Ratio 02/19/2024 2.00 TSH 02/19/2024 2.660 Hemoglobin A1C 02/19/2024 6.2 (H) Estimated Average Glucose 02/19/2024 131 ASSESSMENT/PLAN: 1. Gastroesophageal reflux disease, unspecified whether esophagitis present - ICD9: 530.81, ICD10: K21.9 (primary diagnosis) 2. Irritable bowel syndrome, unspecified type - ICD9: 564.1, ICD10: K58.9 Stable Continue current medications. 3. Hyperlipidemia, unspecified hyperlipidemia type - ICD9: 272.4, ICD10: E78.5 - Controlled - Continue current medications - Counseled on healthy diet and regular exercise - COMPREHENSIVE METABOLIC PANEL - LIPID PANEL BASIC - PRAVASTATIN 40 MG TABLET 4. Elevated glucose - ICD9: 790.29, ICD10: R73.09 Stable; monitor - COMPREHENSIVE METABOLIC PANEL - LIPID PANEL BASIC - HEMOGLOBIN A1C 5. Hypothyroidism, unspecified type - ICD9: 244.9, ICD10: E03.9 - Instructed patient on importance of taking on an empty stomach either first thing in the morning or at bedtime. - continue current dose of Synthroid 0.112 mg - THYROID STIMULATING HORMONE 6. Smoker - ICD9: 305.1, ICD10: F17.200 - Cessation encouraged. - Physiologic and physical aspects of tobacco addiction as well as strategies for quitting were discussed. - Counseling was given focusing on the harmful effects of this addiction especially given the patient's medical condition(s) which will be worsened because of the chemicals in tobacco. 7. Screening for depression - ICD9: V79.0, ICD10: Z13.31 - DEPRESSION SCREENING 8. Encounter for screening examination for other mental health and behavioral disorders - ICD9: V79.8, ICD10: Z13.39 - ANXIETY SCREENING 9. Rosacea - ICD9: 695.3, ICD10: L71.9 - TRETINOIN 0.025 % TOPICAL CREAM Follow up in 6 months Medical Decision Making: Problems: Moderate: 2+ stable chronic illnesses Data: Unique test result(s) reviewed: 3+ Unique test(s) ordered: 3+ Risk: Moderate: Drug management Medical Decision Making Level: 4 - Moderate Pepe Reyes MD documented in this encounterH[facility]08-[facility] Instructions* Patient Instructions* Julieta Mohan MA - 02/26/2024 12:57 PM EDT Check with insurance regarding Shingles/RSV coverage. Make sure covered, what you will be responsible for and if cheaper to get through Pharmacy or Doctor's office, or if no difference in cost. documented in this encounterHocking [facility]07-08-2024 Telephone encounter Note * Telephone Encounter - Rob Cardenas APRN.CNP - 01/08/2024 11:21 AM EDT The following approved medication requests have been transmitted electronically. Requested Prescriptions Pending Prescriptions Disp Refills famotidine (PEPCID) 20 mg tablet 90 tablet 3 Sig: Take 1 tablet by mouth once daily. Rob Cardenas APRN.CNP [facility]07-08-2024 Miscellaneous Notes* Telephone Encounter - Rob Cardenas APRN.CNP - 01/08/2024 11:21 AM EDT The following approved medication requests have been transmitted electronically. Requested Prescriptions Pending Prescriptions Disp Refills famotidine (PEPCID) 20 mg tablet 90 tablet 3 Sig: Take 1 tablet by mouth once daily. Rob Cardenas APRN.CNP * Telephone Encounter - Zora Mills - 01/08/2024 10:34 AM EDT Prescription Refill Information The patient has been identified by name and date of : Yes Caregiver verified no other encounters exist for this prescription request: Yes Caregiver confirmed with patient/requestor that no other refills are due, in the near future, with this provider at this time: Yes The last office visit in the department: 09-19-23 Does the patient have a future office visit with this provider/department: Yes Requested Prescriptions Pending Prescriptions Disp Refills famotidine (PEPCID) 20 mg tablet 90 tablet 3 Sig: Take 1 tablet by mouth once daily. Zora Balderrama January 08, 2024 10:37 AM documented in this encounterHocking [facility]07-08-2024 Telephone encounter Note * Telephone Encounter - Zora Mills - 01/08/2024 10:34 AM EDT Prescription Refill Information The patient has been identified by name and date of : Yes Caregiver verified no other encounters exist for this prescription request: Yes Caregiver confirmed with patient/requestor that no other refills are due, in the near future, with this provider at this time: Yes The last office visit in the department: 09-19-23 Does the patient have a future office visit with this provider/department: Yes Requested Prescriptions Pending Prescriptions Disp Refills famotidine (PEPCID) 20 mg tablet 90 tablet 3 Sig: Take 1 tablet by mouth once daily. Zora Balderrama January 08, 2024 10:37 AM [facility]05-20-2024 Instructions* Patient Instructions* Peterson Norton APRN.CNP - 11/20/2023 11:00 AM EDT Lung nodule/s: all previously seen nodule/s have not changed in size or characteristic/resolved andthere are no new nodules of concern. Please return in one year for the following 2 visits on the same day: Annual low-dose CT chest Lung cancer screening Provider visit. This recommendation is subject to change pending the final report from radiology. I will notify you of the final radiology report recommendations when available by [employer] message, letter, or phone call. We will also notify your referring provider/PCP of the results and recommendations. If you didn t schedule this before you left the office or need to reschedule, you can call in to schedule it anytime: [facility] [phone] [facility] [phone] All other [facility] locations [phone] Feel free to reach out for any questions or concerns, Peterson Norton APRN.CNP Lung Cancer Screening [phone] documented in this encounterHocking Valley [facility]05-20-2024 History of Present illness Narrative* Peterson Norton APRN.CANCER REGISTRAR - 11/20/2023 10:39 AM EDT Images from the original note were not included. LUNG SCREENING ANNUAL VISIT PRIMARY CARE PHYSICIAN: Pepe Reyes MD PULMONARY PROVIDER: none Results will be communicated via letter or electronic record if applicable. Visit Delivery: In Person Patient Visit Type: established Current or Ex-smoker? [Current Exam Type: annual LDCT Number of Pack Years: 42 Current smoker (=0) The patient's smoking history is similar to prior year shared decision visit. The reason for the discrepancy is NA Chief Complaint: Established patient in lung cancer screening program here for annual follow-up. Impression / Recommendations Roman Kuhn presents for annual lung cancer screening annual exam and nodule evaluation. Plan: Indeterminate pulmonary nodules: Previously identified nodules appear stable and no new nodules of concern were seen on the exam. Low dose CT Scan to be repeated in one year. Plan subject to change pending final radiology report and recommendations. Nature of the lung nodule(s) and the options for further evaluation discussed in detail with patient. Roman Kuhn expressed understanding and is in agreement with plan. 2. Encounter for screening for malignant neoplasm of respiratory organs I have determined that the patient is eligible for continued low dose CT screening based on age, absence of signs or symptoms of lung cancer, smoking history and total pack years. The patient was counseled on the importance of adherence to annual LDCT lung cancer screening, impact of comorbidities and ability or willingness to undergo diagnosis and treatment. The patient understands and feels comfortable with it: Yes. 3. Nicotine Dependence The patient was counseled on the importance of smoking cessation if current smoker and, if appropriate, offered additional tobacco cessation counseling services - Smoking Cessation Counseling. SMOKING CESSATION COUNSELING Smoking cessation methods including Nicotine Replacement Therapies and Behavior Modification were discussed with the patient and assistance offered. Pt uses patches some times. Has cut back, but hasn't been successful with quitting yet. The medical conditions adversely affected by cigarette use include:COPD, Emphysema, and Lung Cancer. Counseled on benefits of quitting smoking, recommended cessation or reduction to prevent development and/or progression of emphysema. The patient is currently not ready to quit. I personally spent 3 minutes in counseling. The time spent in smoking cessation counseling is exclusive of any other counseling during this visit. I spent a total of 30 minutes on the date of the service which included preparing to see the patient, [id number] patient care, completing clinical documentation, performing a medically appropriate examination, counseling and educating the patient/family/caregiver, ordering medications, tests, or p rocedures, communicating with other HCPs (not separately reported), independently interpreting results (not separately reported), communicating results to the patient/family/caregiver, and care coordination (not separately reported). Peterson Norton APRN.[facility] November 20, 2023 10:41 AM History of Present Illness: Roman Kuhn is a 72 year old female who is presenting today for annual lung cancer screening LDCT and nodule surveillance/management. Patient has RUL lung nodule found on previous lung cancer screening LDCT. Last LDCT was performed on 11/14/2022 and was LUNG RADS Category 2. Previous potentially significant incidental findings on imaging: None. Patient is a current smoker with a 42 pack year history. Patient is currently still smoking 10 cigarettes daily. Patient will continue to be eligible for lung cancer screening until age 75. The patient does not have any symptoms or signs of lung cancer. Patient denies SOB with their dailyactivity. FoSinus drainage lately. No wheezing or dyspnea. Patient denies feeling of chest tightness/congestion in the chest. Patient does not have a new or concerning cough, and denies hemoptysis. Patient does have a chronic daily cough-new with sinus drainage. Denies regular or recent fevers/chills. Patient does not have any significant unintentional weight loss. Patient denies having any respiratory infections or COVID-19 in the past few months. Does not use any maintenance inhaler for COPD.Has rescue inhaler, uses it every couple of months. Modified Medical Research [place] Dyspnea Scale (MMRC) I only get breathless with strenous exercise 0 Last 12 Encounter Wt Readings: Date: Wt: 11/20/2023 57.2 kg (126 lb) 09/19/2023 58.2 kg (128 lb 3.2 oz) 08/28/2023 57.9 kg (127 lb 9.6 oz) 08/18/2023 58.1 kg (128 lb) 06/22/2023 58.3 kg (128 lb 9.6 oz) 04/13/2023 57.2 kg (126 lb) 04/10/2023 58.2 kg (128 lb 3.2 oz) 03/22/2023 57.7 kg (127 lb 3.2 oz) 02/27/2023 57.4 kg (126 lb 9.6 oz) 12/02/2022 59 kg (130 lb) 11/01/2022 59 kg (130 lb) 10/31/2022 59.1 kg (130 lb 3.2 oz) Social History Tobacco Use: .75 packs/day, for 53 years. Types: Cigarettes Past Medical History: PAST MEDICAL HISTORY Diagnosis Date Abdominal pain, epigastric Allergic rhinitis, cause unspecified Allergic rhinitis Esophageal reflux IBS (irritable bowel syndrome) constipation primarily Other and unspecified hyperlipidemia Unspecified hypothyroidism Family Hx: FAMILY HISTORY Problem Relation Age of Onset Prostate Cancer Father Coronary Artery Disease Father late in life; enlarged heart; smoked Heart Mother valve, age 81 Colon Cancer Other none Diabetes Other none Surgical Hx: PAST SURGICAL HISTORY Procedure Laterality Date ABDOMINAL SURGERY HX BIOPSY BREAST OPEN INCISIONAL 08/14/2017 left stereotactic breast biopsy w/clip placement [facility] COLONOSCOPY FLX DX W/COLLJ SPEC WHEN PFRMD 12/18/2003 Colonoscopy COLONOSCOPY FLX DX W/COLLJ SPEC WHEN PFRMD 03/11/2008 Colonoscopy COLONOSCOPY FLX DX W/COLLJ SPEC WHEN PFRMD 07/19/2012 Colonoscopy COLONOSCOPY FLX DX W/COLLJ SPEC WHEN PFRMD 11/13/2018 Colonoscopy COSMETIC ASSESSMENT EGD 09/01/2020 ESOPHAGOGASTRODUODENOSCOPY TRANSORAL DIAGNOSTIC 03/12/2012 EGD ESOPHAGOGASTRODUODENOSCOPY TRANSORAL DIAGNOSTIC 11/13/2018 EGD EYE SURGERY HX LAPS SURG CHOLECYSTECTOMY W/CHOLANGIOGRAPHY 04/17/2012 Normal IOC PAST SURGICAL HISTORY OF hemmorhoidectomy PAST SURGICAL HISTORY OF 1970 ventral hernia repair - [place] - unknown for mesh PAST SURGICAL HISTORY OF age 27 partial hysterectomy PAST SURGICAL HISTORY OF 1998 benign breast bx PAST SURGICAL HISTORY OF 07/2002 lasik eye surgery PAST SURGICAL HISTORY OF 07/2006 recheck and enhancement on eye surgery PAST SURGICAL HISTORY OF Bilateral 2019 OD - 08/21, OS - 09/[address] Stock. Cataract implants RHINP PRIM LAT&ALAR CRTLGS&/ELVTN NASAL TI Rhinoplasty x 2 VAGINAL HYSTERECTOMY Allergies: ALLERGIES Allergen Reactions Ceclor [Cefaclor] ER for anaphylaxis Avelox [Moxifloxaci* Intolerance Bactrim [Sulfametho* Unknown Insides were raging Biaxin [Clarithromy* Celexa [Citalopram * Unknown Cipro [Ciprofloxaci* Entex [Phenylephrin* Erythromycin Levsinex [Hyoscyami* Lipitor [Atorvastat* Naldecon Senior Dx * Parafon Forte Dsc [* Paxil [Paroxetine H* Sulfa (Sulfonamide * Other: See Comments Suprax [Cefixime] Urispas [Flavoxate * Voltaren [Diclofena* Review Of Systems: See HPI for ROS All of the remainder systems were reviewed and negative. PHYSICAL EXAMINATION: Wt 126 lb (57.2kg) General appearance: well appearing, in no acute distress, and alert Skin: skin color, texture, turgor normal, no rashes or lesions Nose/Sinuses: Negative Oropharynx: Lips, mucosa, and tongue normal, teeth and gums normal, oropharynx normal Neck: Supple, no adenopathy; thyroid symmetric, normal size Respiratory: lungs clear to auscultation no wheezing or rhonchi Cardiovascular: Negative. RRR without murmur, gallop, or rubs. No ectopy Musculoskeletal: Extremities normal. No deformities, edema, or skin discoloration. Neuro: Oriented X 3 Data Review I have visually reviewed imaging and testing below CT imaging done today was reviewed and analyzed independently and compared to prior CT chest imaging by practitioner and awaiting radiology review. RUL lung nodule is stable. Imaging DATE OF EXAM: Nov 14 2022 3:31PM [facility] 0562 - CT LUNG SCREEN WO IVCON / PROCEDURE REASON: multiple diagnoses * * * * Physician Interpretation * * * * EXAMINATION: CHEST CT WITHOUT CONTRAST (LOW-DOSE CT LUNG CANCER SCREENING PROTOCOL) CLINICAL HISTORY: Lung cancer LDCT screening ? absence of signs or symptoms of lung cancer. Nicotine dependence (cigarettes). Baseline (initial) Technique: Spiral CT acquisition of the chest from the thoracic inlet to the upper abdomen without contrast. MQ: [id number] Patient characteristics: * Jbsy-xr-Clahh: 1950; Age at exam: 71 years * Gender: Female * Lung Disease: Asymptomatic (no signs or symptoms of lung disease) * Number of Pack Years: 39.75 * Current smoker (=0) or Number of Years since Quit: 0 * Ordering provider and NPI: PETERSON NORTON [id number] * Interpreting radiologist and NPI: Kayden [id number] Exam acquisition parameters: * Exam Date: 11/14/2022 3:31 PM * Site: [facility] * * CT System Book Editor: [facility] * CT System Model: Sensation * Tube Current-Time (mA-sec): 22 * Peak Voltage (kV): 120V * Scan Time (sec): 11.37 * Scan Volume (z-length, cm): -31.20 * Pitch: 0.75 * Slice Thickness (mm): 1.5 * CT Dose-Length Product: 70 mGy*cm * CT Dose Index: 1.74mGy * CT Dose Reduction Method: Automated exposure control(AEC) and iterative recon COMPARISON: No prior CT scan of the chest available for comparison. The study is correlated with visualized portions of the lungs on the abdominal CT dated 01/23/2013 RESULT: Are nodules present? Yes, 1-5 nodules If No, go to IMPRESSION. If yes, proceed with characterization of the FIVE largest nodules. Nodule 1: This Solid nodule is located in the Right Upper Lobe on slice number 71 with an average diameter of 3.6 mm. Vague central calcification indicating probable calcified granuloma If this is an ANNUAL LDCT for LCS, please ensure nodule number is the same as in the prior evaluation. Other lung nodule comments: None Other findings: Retained or aspirated secretions are identified in the intrathoracic trachea. The trachea and central airways otherwise appear patent and devoid of endobronchial lesion. There is symmetric irregularity of the pleural-parenchymal interface at both lung apices, likely postinflammatory in nature. The lungs are clear of focal consolidation. No pleural effusion or pneumothorax is identified. The thyroid gland appears unremarkable. No supraclavicular lymphadenopathy is identified. There is no region of intrathoracic lymphadenopathy, including the axillae. The esophagus appears nondilated. The thoracic aorta appears normal in course and caliber. There are mild atherosclerotic calcifications of the thoracic aorta and both the right and left coronary artery circulations. The main and central pulmonary arteries are within normal limits of diameter. The overall heart size is within normal limits. There is an accessory posterior tributary vein to the right upper lobe which courses adjacent to the bronchus intermedius of convergence on the left atrium. No pericardial effusion is identified. Visualized portions of the upper abdomen disclose no acute process. The vertebral body heights appear symmetric and well-maintained. There are mild degenerative changes in the thoracic spine. A surgical clip is noted in the soft tissues of the left breast (6:104). The soft tissues of the chest wall otherwise appear unremarkable. Emphysema: None, Not reported, Not reported Coronary Artery Calcifications: Circumflex None; Left Anterior Descending Mild; Right Coronary Minimum Retail Shift Leader (topogram) images: No additional findings. Last XR Chest - Impression Only XR CHEST 2V FRONTAL/LAT Exam End: 12/02/2022 4:43 PM (Final result) Impression: IMPRESSION: No acute radiographic abnormality. ... Pulmonary Function Testing: SPIROMETRY - BASELINE AND POST DILATOR ([id number]) - ordered on 11/03/21 documented in this encounterHocking [facility]05-20-2024 History of Present illness Narrative* Nehal Gonzalez RT(R) - 11/20/2023 10:00 AM EDT Radiology Service Progress Note PATIENT NAME: Roman Kuhn DATE OF SERVICE: November 20, 2023 TIME: 12:34 PM PATIENT IDENTITY VERIFICATION COMPLETED USING TWO (2) IDENTIFIERS: Name and Date of confirmedby patient verbally. FALL SCREENING: Has the patient had 2 falls in the last year or 1 fall with injury or currently using an Ambulatory Assistive Device (Walker, Cane, Wheelchair, Crutches, etc.)? No PATIENT GENDER DATA: Female. status: : No status: NO. PATIENT RELEVANT IMPLANT DATA REVIEWED: Yes PATIENT PRESENTS WITH AN IMPLANTABLE OR ATTACHED REGISTERED NURSE AMBULATORY: No RADIOLOGY DEPARTMENT: CT; Exam(s) Completed: Chest PERIPHERAL IV DATA: Not applicable SIGNED BY: RT Tristin(R) November 20, 2023 12:34 PM documented in this encounterHocking Valley [facility]03-19-2024 History of Present illness Narrative* Rob Cardenas APRN.CANCER REGISTRAR - 09/19/2023 11:14 AM EDT Chief Complaint Patient presents with: Ear Pain: SHANDRA ears; RIGHT worse x 1 week HPI Roman Kuhn is a 72 year old female who presents here today for Above Complaints. Bilateral ear pain. Right greater than left. Has baseline tinnitus. Right ear described as throbbing. No change in hearing. Uses a neti-pot every morning. Has to pop ears. Using flonase at this time. Using claritin-D also. Rating 2/10 at this time. It is intermittent. No ear drainage. Past medical history, appointments, medications, allergies reviewed. EXAM: BP 117/73 Pulse 112 Temp 36.2 C (97.1 F) (Left Tympanic) Resp 16 Wt 58.2 kg (128 lb 3.2 oz) SpO2 99% BMI 23.45 kg/m General Appearance: Well appearing, alert, in no acute distress, well-hydrated, well nourished.. Ears: Positive findings: cerumen on right, amount Small. Right and left TM are normal. Canals are normal appearing. ASSESSMENT/PLAN: 1. Eustachian tube dysfunction, bilateral - ICD9: 381.81, ICD10: H69.93 -Appears to be eustachian tube dysfunction as she has popping, crackling of the ears, it is intermittent. Continue to use Claritin-D and Flonase daily. She stated that she wanted to come in today to ensure that she did not have an ear infection. I verbalized her that she did not. If she continues to have persistent problems, she is established with ear nose and throat and can follow- up with them. Rob Cardenas APRN.CNP This note was partly generated using [employer] voice recognition dictation and may contain some misspelled or inaccurate words missed on review. documented in this encounterH[facility]03-04-[facility]24 Miscellaneous Notes* Telephone Encounter - Rob Cardenas APRN.CNP - 09/04/2023 11:40 AM EST The following approved medication requests have been transmitted electronically. Requested Prescriptions Pending Prescriptions Disp Refills colestipol (COLESTID) 1 gram tablet [Pharmacy Med Name: COLESTIPOL HYDROCHLORIDE 1 GM Tablet] 90 tablet 3 Sig: take 1 tablet every day Rob Cardenas APRN.CNP documented in this encounterHocking [facility]02-22-2024 Miscellaneous Notes* Telephone Encounter - Teri Reynolds LPN - 08/24/2023 9:54 AM EST Patient notified of results, verbalizes understanding of instructions. Pt will talk it over with Dr. Reyes on Monday. Teri Reynolds LPN * Telephone Encounter - Elise Crocker APRN.CNP - 08/23/2023 6:23 PM EST Can you please call the patient and let her know I reviewed her lab results. Magnesium and thyroid were normal. Glucose just mildly elevated as well as LDL cholesterol. At this time I see no causes for her palpitations. I would still would like her to check to see about Zio monitor coverage. I forgot to mention to her in the office, but I can order an echocardiogram for further evaluation. Pleaselet me know what she prefers. Thank you. Elise Crocker APRN.CNP documented in this encounterHocking [facility]02-19-2024 Miscellaneous Notes* Telephone Encounter - Teri Reynolds LPN - 08/21/2023 10:01 AM EST Patient notified of results, verbalizes understanding of instructions. Teri Reynolds LPN * Telephone Encounter - Elise Crocker APRN.CNP - 08/21/2023 8:11 AM EST Can you please call the patient and let her know that her COVID/flu/RSV was negative. I would recommend that she continue with antibiotic eardrop. Lab results are still pending. The office will be in touch once results are reviewed. Please let me know if she has any questions. Elise Crocker APRN.CESARIO documented in this encounterHocking [facility]02-16-2024 Instructions* Patient Instructions* Elise Crocker APRN.CESARIO - 08/18/2023 10:06 AM EST Wax removed Start antibiotic ear drop into the right ear for the next 7-10 days, Covid/Flu/RSV testing is pending Recommend using a daily antihistamine such as Claritin along with nasal spray Stay well hydrated. Check to see if zio monitor covered to evaluate palpitation. Completes as scheduled, and follow up with PCP. documented in this encounterHocking Valley [facility]02-16-2024 History of Present illness Narrative* Elise Crocker APRN.CNP - 08/18/2023 10:00 AM EST This is a 72 year old female who presents today with: Patient presents with: Acute Visit HISTORY OF PRESENT ILLNESS: Roman Kuhn is a 72 year old female. Patient presents with: Acute Visit Here in the office for chest congestion and right ear pain. Symptoms started almost 2 weeks ago. Cough is productive's at times. Yellow mucus. Some SOB at times. Using Mucinex and Netipot as needed. Heart fluttering. Refers that she had her covid booster in April and shortly after has noticed intermittent fluttering. Feels like the heart is beating quickly. No chest pain, dizziness, or edema. Taking Fluconazole by dermatology, 200 mg once weekly for 2 months. PAST MEDICAL HISTORY: PAST MEDICAL HISTORY Diagnosis Date Abdominal pain, epigastric Allergic rhinitis, cause unspecified Allergic rhinitis Esophageal reflux IBS (irritable bowel syndrome) constipation primarily Other and unspecified hyperlipidemia Unspecified hypothyroidism PAST SURGICAL HISTORY Procedure Laterality Date ABDOMINAL SURGERY HX BIOPSY BREAST OPEN INCISIONAL 08/14/2017 left stereotactic breast biopsy w/clip placement [facility] COLONOSCOPY FLX DX W/COLLJ SPEC WHEN PFRMD 12/18/2003 Colonoscopy COLONOSCOPY FLX DX W/COLLJ SPEC WHEN PFRMD 03/11/2008 Colonoscopy COLONOSCOPY FLX DX W/COLLJ SPEC WHEN PFRMD 07/19/2012 Colonoscopy COLONOSCOPY FLX DX W/COLLJ SPEC WHEN PFRMD 11/13/2018 Colonoscopy COSMETIC ASSESSMENT EGD 09/01/2020 ESOPHAGOGASTRODUODENOSCOPY TRANSORAL DIAGNOSTIC 03/12/2012 EGD ESOPHAGOGASTRODUODENOSCOPY TRANSORAL DIAGNOSTIC 11/13/2018 EGD EYE SURGERY HX LAPS SURG CHOLECYSTECTOMY W/CHOLANGIOGRAPHY 04/17/2012 Normal IOC PAST SURGICAL HISTORY OF hemmorhoidectomy PAST SURGICAL HISTORY OF 1969 ventral hernia repair - [place] - unknown for mesh PAST SURGICAL HISTORY OF age 27 partial hysterectomy PAST SURGICAL HISTORY OF 1998 benign breast bx PAST SURGICAL HISTORY OF 07/2002 lasik eye surgery PAST SURGICAL HISTORY OF 07/2006 recheck and enhancement on eye surgery PAST SURGICAL HISTORY OF Bilateral 2019 OD - 08/21, OS - 09/[address] Stock. Cataract implants RHINP PRIM LAT&ALAR CRTLGS&/ELVTN NASAL TI Rhinoplasty x 2 VAGINAL HYSTERECTOMY ALLERGIES Ceclor [Cefaclor], Avelox [Moxifloxacin Hcl], Bactrim [Sulfamethoxazole], Biaxin [Clarithromycin], Celexa [Citalopram Hydrobromide], Cipro [Ciprofloxacin], Entex [Phenylephrine-Guaifenesin], Erythromycin, Levsinex [Hyoscyamine Sulfate], Lipitor [Atorvastatin Calcium], Naldecon Senior Dx [D extromethorphan-Guaifenesin], Parafon Forte Dsc [Chlorzoxazone], Paxil [Paroxetine Hcl], Sulfa (Sulfonamide Antibiotics), Suprax [Cefixime], Urispas [Flavoxate Hcl], and Voltaren [Diclofenac Sodium] MEDICATIONS Current Outpatient Medications Medication Sig levothyroxine (SYNTHROID) 112 mcg tablet Take 1 tablet by mouth once daily. Take on empty stomach. For thyroid predniSONE (DELTASONE) 20 mg tablet Take 2 tablets by mouth once daily. pantoprazole DR (PROTONIX) 40 mg tablet TAKE 1 TABLET BY MOUTH DAILY BEFORE BREAKFAST. TAKE ON EMPTY STOMACH, 1/2 HR BEFORE MEAL. pravastatin (PRAVACHOL) 40 mg tablet take 1 tablet every day famotidine (PEPCID) 20 mg tablet Take 1 tablet by mouth once daily. colestipol (COLESTID) 1 gram tablet Take 1 tablet by mouth once daily. albuterol HFA (VENTOLIN HFA) 90 mcg/actuation inhaler Inhale 2 Puffs as instructed every 6 hours asneeded for wheezing/shortness of breath. tretinoin (RETIN-A) 0.025 % topical cream Apply 1 application to affected area daily at bedtime. polyethylene glycol 3350 (MIRALAX, GLYCOLAX) 17 gram/dose powder Take 17 g by mouth twice daily. triamcinolone acetonide (NASACORT) 55 mcg nasal inhaler Use 2 Sprays in the nose once daily. aspirin(ECOTRIN LOW STRENGTH 81 MG TAB) Take one(1) tablet daily. ONE DAILY MULTI-VITAMIN TAB Take one(1) tablet daily. No current facility-administered medications for this visit. FAMILY HISTORY Problem Relation Age of Onset Prostate Cancer Father Coronary Artery Disease Father late in life; enlarged heart; smoked Heart Mother valve, age 81 Colon Cancer Other none Diabetes Other none Social History Tobacco Use Smoking status: Every Day Packs/day: 0.75 Years: 53.00 Additional pack years: 0.00 Total pack years: 39.75 Types: Cigarettes Smokeless tobacco: Never Vaping Use Vaping Use: Never used Substance Use Topics Alcohol use: Yes Comment: occasionally Drug use: No REVIEW OF SYSTEMS GENERAL: No weight loss, malaise or fevers/chills HEENT: + Right Ear Pain NECK: Negative for lumps, goiter, pain and significant neck swelling RESPIRATORY: + Chest Congestion CARDIOVASCULAR: +Palpitations GI: No nausea, vomiting, or diarrhea/constipation. No hematochezia/melena. No heartburn or reflux symptoms. : No history of dysuria, frequency or incontinence MUSCULOSKELETAL: Negative for joint pain or swelling. SKIN: Negative for lesions, rash, and itching ENDOCRINE: Negative for cold or heat intolerance, polyuria, polydipsia and goiter NEURO: No history of headaches, syncope, paralysis, seizures or tremors MOOD: Negative for depression, anxiety, or suicidal ideation. EXAM: BP 120/80 Pulse 102 Resp 16 Wt 58.1 kg (128 lb) SpO2 98% BMI 23.41 kg/m PHYSICAL EXAM: General Appearance: Well appearing, alert, in no acute distress, well-hydrated, well nourished. Skin: Skin color, texture, turgor normal, no suspicious rashes or lesions. Head: Normocephalic, no masses, lesions, tenderness or abnormalities. Eyes: Anicteric sclera. Extraocular movements are intact. Ears: Positive findings: R TM: normal, erythema and edema of ear canal: on right, Cerumen removed without difficulty. TM's dull Nose/Sinuses: Positive findings: mucosa erythematous and swollen. Oropharynx: Lips, mucosa, and tongue normal, teeth and gums normal, oropharynx normal. Neck: Supple, no adenopathy; thyroid symmetric, normal size, no bruits. Lungs: Lungs clear to auscultation. No wheezing, rhonchi, rales.. Heart: RRR without murmur, gallop, or rubs. No ectopy. Extremities: No deformities, edema, skin discoloration, clubbing or cyanosis. Good capillary refill. Peripheral Pulses: Normal, Capillary refill <2secs, strong peripheral pulses, Pulses palpable. Neurologic: Gait normal. Sensation grossly intact. ECG: NSR, no ectopy, or ST changes. ASSESSMENT/PLAN: 1. Acute otitis externa of right ear, unspecified type - ICD9: 380.10, ICD10: H60.501 (primary diagnosis) - Start antibiotic eardrop, use as directed. - [id number] 3.5 MG-10,000 UNIT/ML-1 % EAR DROPS,SUSP 2. Impacted cerumen of right ear - ICD9: 380.4, ICD10: H61.21 - Cerumen removed without difficulty with curette. 3. Sinus congestion - ICD9: 478.19, ICD10: R09.81 - Recommend adding on daily antihistamine with Flonase. - COVID & INFLUENZA A/B & RSV NAAT, ROUTINE 4. Palpitations - ICD9: 785.1, ICD10: R00.2 - ECG showed normal sinus rhythm, no ectopy, or ST changes. - Instructed to check about Zio monitor coverage. - Get labs completed prior to appointment with PCP next week. - Red flag symptoms given to patient, she verbalizes understanding when to seek emergency care. - Limit caffeine and stay well-hydrated. - ECG COMPLETE - MAGNESIUM BLD Follow-up as scheduled or sooner as needed. Discussed treatment plan and patient voices understanding. Patient's questions answered appropriately. Medications and potential side effects were discussed and patient voices understanding. Elise Crocker APRN.CNP This note was partially generated using [employer] voice recognition system. Note was reviewed for accuracy. There may be minor misspellings or grammar miscues with [employer] voice recognition. documented in this encounterHock[facility]11-22-2023 Miscellaneous Notes* Telephone Encounter - Rob Cardenas APRN.CNP - 05/24/2023 11:04 AM EST The following approved medication requests have been transmitted electronically. Requested Prescriptions Pending Prescriptions Disp Refills pantoprazole DR (PROTONIX) 40 mg tablet [Pharmacy Med Name: PANTOPRAZOLE SODIUM 40 MG Tablet Delayed Release] 90 tablet 3 Sig: TAKE 1 TABLET BY MOUTH DAILY BEFORE BREAKFAST. TAKE ON EMPTY STOMACH, 1/2 HR BEFORE MEAL. pravastatin (PRAVACHOL) 40 mg tablet [Pharmacy Med Name: PRAVASTATIN SODIUM 40 MG Tablet] 90 tablet3 Sig: take 1 tablet every day Rob Cardenas APRN.CNP * Telephone Encounter - Jesica Hawk LPN - 05/24/2023 11:01 AM EST Last refills 07/22/22 Qty: 90 with 3 refills TIANA 04/10/23 NOV 08/28/23 Jesica Hawk LPN documented in this [facility]10-10-2023 Miscellaneous Notes* Telephone Encounter - Mirta Kathleen LPN - 04/11/2023 7:57 PM EDT Patient notified.Mirta Kathleen LPN * Telephone Encounter - Jina Ruiz APRN.CNP - 04/11/2023 7:44 PM EDT GC/Chlamydia negative. Please advise patient documented in this encounterHock[facility]10-10-2023 Miscellaneous Notes* Telephone Encounter - Liliana Roper LPN - 04/11/2023 11:33 AM EDT Patient given results and verbalized understanding of instructions given. Liliana Roper LPN * Telephone Encounter - Jina Ruiz APRN.CNP - 04/11/2023 10:51 AM EDT Please reach out and inform patient that her vaginal swabs have resulted. Yeast negative BV negative Trichomonas negative The GC/Chlamydia was cancelled by lab initially, but they are re running. Urine culture negative. documented in this [facility]10-10-2023 Miscellaneous Notes* Telephone Encounter - Ute Aguilar - 04/11/2023 7:58 AM EDT Spoke with Jovanny, has been added to order. Ute Aguilar * Telephone Encounter - Khalida Rogers APRN.CNP - 04/11/2023 7:23 AM EDT Please call lab and ask them to rerun the GC. documented in this encounterHocking [facility]09-21-2023 Miscellaneous Notes* Telephone Encounter - Mirta Kathleen LPN - 03/23/2023 8:03 AM EDT Patient notified.Mirta Kathleen LPN * Telephone Encounter - Krystle Silva APRN.CNP - 03/23/2023 7:14 AM EDT Please notify of negative influenza, rsv, and covid test. Continue comfort measures for symptoms asyou would for a cold. Any worsening symptoms follow up with PCP or ER. Krystle Silva APRN.CNP documented in this encounterHocking [facility]09-20-2023 Miscellaneous Notes* Addendum Note - Jina Ruiz APRN.CNP - 03/22/2023 10:35 AM EDTAddended by: JINA RUIZ on: 03/22/2023 10:35 AM Modules accepted: Orders documented in this encounterHocking [facility]09-20-2023 History of Present illness Narrative* Jina Ruiz APRN.CNP - 03/22/2023 8:38 AM EDT This note was created using NoteWriter. Subjective Roman Kuhn is a 72 year old female. 72 year old female with PMH hyperlipidemia, hypothyroid and acid reflux presents for illness. Acute onset several weeks ago Endorses that it started with sinus pressure and post nasal drainage. Endorses that she has had similar in past, happens every year This past couple days her symptoms have worsened. +increased pressure +increased cough Fatigue and body aches Denies N/V/D Denies fever or chills. Citing Prednisone and Doxycyline works for her. Has used Neti Pot Mucinex Denies tobacco usage. The history is provided by the patient. No japanese interpreter was used. Sinus Problem This is a new problem. The current episode started 1 to 4 weeks ago. The problem occurs constantly.The problem has been gradually worsening. Associated symptoms include chills, congestion, coughing,fatigue and headaches. Pertinent negatives include no abdominal pain, anorexia, arthralgias, changein bowel habit, chest pain, diaphoresis, fever, joint swelling, myalgias, nausea, neck pain, numbness, rash, sore throat, swollen glands, urinary symptoms, vertigo, visual change, vomiting or weakness. Nothing aggravates the symptoms. Treatments tried: Neti Pot/Mucinex. The treatment provided no relief. PAST MEDICAL HISTORY Diagnosis Date Abdominal pain, epigastric Allergic rhinitis, cause unspecified Allergic rhinitis Esophageal reflux IBS (irritable bowel syndrome) constipation primarily Other and unspecified hyperlipidemia Unspecified hypothyroidism PAST SURGICAL HISTORY Procedure Laterality Date ABDOMINAL SURGERY HX BIOPSY BREAST OPEN INCISIONAL 08/14/2017 left stereotactic breast biopsy w/clip placement [facility] COLONOSCOPY FLX DX W/COLLJ SPEC WHEN PFRMD 12/18/2003 Colonoscopy COLONOSCOPY FLX DX W/COLLJ SPEC WHEN PFRMD 03/11/2008 Colonoscopy COLONOSCOPY FLX DX W/COLLJ SPEC WHEN PFRMD 07/19/2012 Colonoscopy COLONOSCOPY FLX DX W/COLLJ SPEC WHEN PFRMD 11/13/2018 Colonoscopy COSMETIC ASSESSMENT EGD 09/01/2020 ESOPHAGOGASTRODUODENOSCOPY TRANSORAL DIAGNOSTIC 03/12/2012 EGD ESOPHAGOGASTRODUODENOSCOPY TRANSORAL DIAGNOSTIC 11/13/2018 EGD EYE SURGERY HX LAPS SURG CHOLECYSTECTOMY W/CHOLANGIOGRAPHY 04/17/2012 Normal IOC PAST SURGICAL HISTORY OF hemmorhoidectomy PAST SURGICAL HISTORY OF 1969 ventral hernia repair - [place] - unknown for mesh PAST SURGICAL HISTORY OF age 27 partial hysterectomy PAST SURGICAL HISTORY OF 1998 benign breast bx PAST SURGICAL HISTORY OF 07/2002 lasik eye surgery PAST SURGICAL HISTORY OF 07/2006 recheck and enhancement on eye surgery PAST SURGICAL HISTORY OF Bilateral 2019 OD - 08/21, OS - 09/[address] Stock. Cataract implants RHINP PRIM LAT&ALAR CRTLGS&/ELVTN NASAL TI Rhinoplasty x 2 VAGINAL HYSTERECTOMY ALLERGIES Ceclor [Cefaclor], Anaprin [Other], Avelox [Moxifloxacin Hcl], Bactrim [Sulfamethoxazole], Biaxin [Clarithromycin], Celexa [Citalopram Hydrobromide], Chlorzinex [Other], Cipro [Ciprofloxacin], Entex [Phenylephrine-Guaifenesin], Erythromycin, Fintex [Other], Levsinex [Hyoscyamine Sulfate],Lipitor [Atorvastatin Calcium], Naldecon Senior Dx [Dextromethorphan-Guaifenesin], Ornade [Other], Panelor [Other], Parafon Forte Dsc [Chlorzoxazone], Paxil [Paroxetine Hcl], Sporostac [Other], Sulfa(Sulfonamide Antibiotics), Suprax [Cefixime], Urispas [Flavoxate Hcl], and Voltaren [Diclofenac Sodium] MEDICATIONS famotidine (PEPCID) 20 mg tablet Take 1 tablet by mouth once daily. colestipol (COLESTID) 1 gram tablet Take 1 tablet by mouth once daily. levothyroxine (SYNTHROID) 112 mcg tablet Take 1 tablet by mouth once daily. Take on empty stomach. For thyroid pantoprazole DR (PROTONIX) 40 mg tablet Take 1 tablet by mouth daily before breakfast. Take on empty stomach, 1/2 hr before meal. pravastatin (PRAVACHOL) 40 mg tablet Take 1 tablet by mouth once daily. albuterol HFA (VENTOLIN HFA) 90 mcg/actuation inhaler Inhale 2 Puffs as instructed every 6 hours asneeded for wheezing/shortness of breath. tretinoin (RETIN-A) 0.025 % topical cream Apply 1 application to affected area daily at bedtime. polyethylene glycol 3350 (MIRALAX, GLYCOLAX) 17 gram/dose powder Take 17 g by mouth twice daily. triamcinolone acetonide (NASACORT) 55 mcg nasal inhaler Use 2 Sprays in the nose once daily. aspirin(ECOTRIN LOW STRENGTH 81 MG TAB) Take one(1) tablet daily. ONE DAILY MULTI-VITAMIN TAB Take one(1) tablet daily. predniSONE (DELTASONE) 10 mg tablet Take 4 tabs daily for 3 days, then 2 tabs daily for 3 days, then 1 tab daily for 3 days with food. (Patient not taking: Reported on 03/22/2023) FAMILY HISTORY Problem Relation Age of Onset Prostate Cancer Father Coronary Artery Disease Father late in life; enlarged heart; smoked Heart Mother valve, age 81 Colon Cancer Other none Diabetes Other none Social History Tobacco Use Smoking status: Every Day Packs/day: 0.75 Years: 53.00 Additional pack years: 0.00 Total pack years: 39.75 Types: Cigarettes Smokeless tobacco: Never Vaping Use Vaping Use: Never used Substance Use Topics Alcohol use: Yes Comment: occasionally Drug use: No Review of Systems Constitutional: Positive for chills and fatigue. Negative for diaphoresis and fever. HENT: Positive for congestion, postnasal drip, rhinorrhea, sinus pressure and sinus pain. Negative for sore throat. Eyes: Negative for pain, discharge, redness and itching. Respiratory: Positive for cough. Negative for apnea, choking and chest tightness. Cardiovascular: Negative for chest pain. Gastrointestinal: Negative for abdominal pain, anorexia, change in bowel habit, nausea and vomiting. Musculoskeletal: Negative for arthralgias, joint swelling, myalgias and neck pain. Skin: Negative for color change, pallor and rash. Allergic/Immunologic: Negative for environmental allergies, food allergies and immunocompromised state. Neurological: Positive for headaches. Negative for dizziness, vertigo, facial asymmetry, weakness and numbness. Hematological: Negative for adenopathy. Does not bruise/bleed easily. Psychiatric/Behavioral: Negative for agitation and behavioral problems. Objective BP 118/86 Pulse 85 Temp 36.9 C (98.5 F) Resp 21 Wt 57.7 kg (127 lb 3.2 oz) SpO2 98% BMI22.54 kg/m Physical Exam Vitals and nursing note reviewed. Constitutional: General: She is not in acute distress. Appearance: Normal appearance. She is normal weight. She is not ill-appearing, toxic-appearing or diaphoretic. HENT: Head: Normocephalic and atraumatic. Comments: +frontal sinus pressure +maxillary sinus pressure Right Ear: Ear canal and external ear normal. Left Ear: Ear canal and external ear normal. Ears: Comments: Bilateral ears with mild erythema. Nose: Nose normal. No congestion or rhinorrhea. Mouth/Throat: Mouth: Mucous membranes are moist. Pharynx: Posterior oropharyngeal erythema present. No oropharyngeal exudate. Eyes: General: Right eye: No discharge. Left eye: No discharge. Extraocular Movements: Extraocular movements intact. Conjunctiva/sclera: Conjunctivae normal. Pupils: Pupils are equal, round, and reactive to light. Cardiovascular: Rate and Rhythm: Normal rate and regular rhythm. Pulses: Normal pulses. Heart sounds: Normal heart sounds. No murmur heard. No friction rub. Pulmonary: Effort: Pulmonary effort is normal. No respiratory distress. Breath sounds: Normal breath sounds. No stridor. No wheezing, rhonchi or rales. Chest: Chest wall: No tenderness. Abdominal: General: Abdomen is flat. There is no distension. Palpations: Abdomen is soft. There is no mass. Tenderness: There is no abdominal tenderness. There is no right CVA tenderness, left CVA tenderness, guarding or rebound. Hernia: No hernia is present. Musculoskeletal: General: No swelling, tenderness, deformity or signs of injury. Normal range of motion. Cervical back: Normal range of motion and neck supple. No rigidity. Right lower leg: No edema. Left lower leg: No edema. Lymphadenopathy: Cervical: No cervical adenopathy. Skin: General: Skin is warm and dry. Capillary Refill: Capillary refill takes less than 2 seconds. Coloration: Skin is not jaundiced or pale. Findings: No bruising, erythema, lesion or rash. Neurological: General: No focal deficit present. Mental Status: She is alert and oriented to person, place, and time. Cranial Nerves: No cranial nerve deficit. Sensory: No sensory deficit. Motor: No weakness. Coordination: Coordination normal. Gait: Gait normal. Psychiatric: Mood and Affect: Mood normal. Behavior: Behavior normal. Thought Content: Thought content normal. Judgment: Judgment normal. Assessment and Plan ASSESSMENT/PLAN: 1. Rhinosinusitis - ICD9: 473.9, ICD10: J31.0, J32.9 (primary diagnosis) - Will begin treatment with as per antibiotic as written, see orders - The patient should also be given OTC cough and cold meds as needed, warm salt water gargles, throat lozenges and/or OTC throat spray as needed, and nasal saline gtts and suction prn for the first 5-7 days of treatment. - Supportive care with plenty of fluids, rest, and analgesia prn. - Follow up in 3-5 days if symptoms persist or worsen. - COVID & INFLUENZA A/B & RSV NAAT, ROUTINE 2. URI, acute - ICD9: 465.9, ICD10: J06.9 - Symptomatic treatment with prn analgesia - Supportive care with fluids and rest - The patient may also use OTC cough and cold meds as needed, warm salt water gargles, throat lozenges and/or OTC throat spray as needed, and nasal saline gtts and suction prn. - Follow up in 3-5 days if symptoms persist or sooner if worsening of symptoms - COVID & INFLUENZA A/B & RSV NAAT, ROUTINE Jina Ruiz APRN.CANCER REGISTRAR documented in this encounterHocking [facility]09-15-2023 Miscellaneous Notes* Letter - Coordinator, Mammography - 03/17/2023 8:16 AM EDT March 17, 2023 PID: [id number] Roman Kuhn [address] [place] [address] Dear Ms. Kuhn, We are pleased to inform you that the results of your recent breast imaging exam on 03/16/2023 are normal. Your mammogram demonstrates that you have dense breast tissue, which could hide abnormalities. Dense breast tissue, in and of itself, is a relatively common condition. Therefore, this information is not provided to cause undue concern; rather, it is to raise your awareness and promote discussion with your health care provider regarding the presence of dense breast tissue in addition to other riskfactors. Early detection of cancer is very important. We also understand recommendations regarding breast cancer screening are controversial. Please discuss with your primary care provider which strategy is best for you and whether a mammogram is right for you. Your imaging studies and report will be kept on file at [facility] as part of your permanent medical record and are available for your continuing care. Thank you for allowing us to help in meeting your health care needs. Sincerely, Dr. Newman Interpreting Radiologist [facility] (Normal over 40) documented in this encounterHocking Valley Community Hospital09-14-2023 History of Present illness Narrative* Anurag Morales Mammo Nahomi - 03/16/2023 1:10 PM EDT Radiology Service Progress Note PATIENT NAME: Roman Kuhn DATE OF SERVICE: March 16, 2023 TIME: 12:59 PM PATIENT IDENTITY VERIFICATION COMPLETED USING TWO (2) IDENTIFIERS: Name and Date of confirmedby patient verbally. FALL SCREENING: Has the patient had 2 falls in the last year or 1 fall with injury or currently using an Ambulatory Assistive Device (Walker, Cane, Wheelchair, Crutches, etc.)? No PATIENT GENDER DATA: Female. status: : No status: NO. PATIENT RELEVANT IMPLANT DATA REVIEWED: Not Applicable RADIOLOGY DEPARTMENT: Mammography PERIPHERAL IV DATA: Not applicable SIGNED BY: Rach HarperRutland Cycling Nahomi March 16, 2023 12:59 PM documented in this encounterHocking Valley [facility]08-28-2023 History of Present illness Narrative* Pepe Reyes MD - 02/27/2023 12:40 PM EDT Chief Complaint Patient presents with: 6 Month Exam HPI Roman Kuhn is a 72 year old female who presents here today for 6 month follow up. Has an advanced directive. She has a squirrel she feeds and will come up to her when she is outside. No bowel, Gi, or urinary issues. Uses Miralax BID and Benefiber. Taking Protonix 40 mg daily, Pepcid 20 mg daily and Colestid 1 gram daily for GERD sx. She tried to go off the Pepcid and within a fewdays her sx started up, nausea, trouble with belching, passing gas, IBS flaring up. She bought a box of OTC pepcid and started using it and sx are improving. Thyroid: Taking Synthroid 112 mcg daily, denies missing any dosages. No chest pains, dizziness, or SOB. Had last stress test done in 2018. Received letter that says sarahys to have another stress test done. Lipid: Tries to watch diet and walks her dog about 20 minutes a day. Taking Pravastatin 40 mg daily. Tolerating well. She has sugar in her coffee and tea in the morning and occ if she has a cup at night. She does like to have a dessert after dinner. Continues to smoke, admits she really has not cut back. She saw Sera Norton CNP for lungcancer screening with result LDCT Lung Rads category 2- repeat CT in 12 months. She has patches thatshe uses occ, admits she is not very good about putting them on regularly. Fungus: left thumb nail. She has used Lamisil for 3 months. She has been using OTC fungal tx on her3rd OTC product for this. It does not seem to be helping. She would like to have the nail removed. She used to have a yeast or fungal infection on the right hip that resolved. It will flare up occ. She has discussed this with Derm Dr. Nasim Stock who didn't have any suggests for the fungus. She will ask Dr. Pagan opinion again when she see's him in Mar. Past medical history, appointments, medications, allergies reviewed. Previous Medical History PAST MEDICAL HISTORY Diagnosis Date Abdominal pain, epigastric Allergic rhinitis, cause unspecified Allergic rhinitis Esophageal reflux IBS (irritable bowel syndrome) constipation primarily Other and unspecified hyperlipidemia Unspecified hypothyroidism Previous Surgical History PAST SURGICAL HISTORY Procedure Laterality Date ABDOMINAL SURGERY HX BIOPSY BREAST OPEN INCISIONAL 08/14/2017 left stereotactic breast biopsy w/clip placement [facility] COLONOSCOPY FLX DX W/COLLJ SPEC WHEN PFRMD 12/18/2003 Colonoscopy COLONOSCOPY FLX DX W/COLLJ SPEC WHEN PFRMD 03/11/2008 Colonoscopy COLONOSCOPY FLX DX W/COLLJ SPEC WHEN PFRMD 07/19/2012 Colonoscopy COLONOSCOPY FLX DX W/COLLJ SPEC WHEN PFRMD 11/13/2018 Colonoscopy COSMETIC ASSESSMENT EGD 09/01/2020 ESOPHAGOGASTRODUODENOSCOPY TRANSORAL DIAGNOSTIC 03/12/2012 EGD ESOPHAGOGASTRODUODENOSCOPY TRANSORAL DIAGNOSTIC 11/13/2018 EGD EYE SURGERY HX LAPS SURG CHOLECYSTECTOMY W/CHOLANGIOGRAPHY 04/17/2012 Normal IOC PAST SURGICAL HISTORY OF hemmorhoidectomy PAST SURGICAL HISTORY OF 1970 ventral hernia repair - [place] - unknown for mesh PAST SURGICAL HISTORY OF age 27 partial hysterectomy PAST SURGICAL HISTORY OF 1998 benign breast bx PAST SURGICAL HISTORY OF 07/2002 lasik eye surgery PAST SURGICAL HISTORY OF 07/2006 recheck and enhancement on eye surgery PAST SURGICAL HISTORY OF Bilateral 2019 OD - 08/21, OS - 09/[address] Stock. Cataract implants RHINP PRIM LAT&ALAR CRTLGS&/ELVTN NASAL TI Rhinoplasty x 2 VAGINAL HYSTERECTOMY Family History FAMILY HISTORY Problem Relation Age of Onset Prostate Cancer Father Coronary Artery Disease Father late in life; enlarged heart; smoked Heart Mother valve, age 81 Colon Cancer Other none Diabetes Other none Patient Allergies ALLERGIES Allergen Reactions Ceclor [Cefaclor] ER for anaphylaxis Anaprin [Other] Avelox [Moxifloxaci* Intolerance Bactrim [Sulfametho* Unknown Insides were raging Biaxin [Clarithromy* Celexa [Citalopram * Unknown Chlorzinex [Other] Cipro [Ciprofloxaci* Entex [Phenylephrin* Erythromycin Fintex [Other] Levsinex [Hyoscyami* Lipitor [Atorvastat* Naldecon Senior Dx * Ornade [Other] Panelor [Other] Parafon Forte Dsc [* Paxil [Paroxetine H* Sporostac [Other] Sulfa (Sulfonamide * Other: See Comments Suprax [Cefixime] Urispas [Flavoxate * Voltaren [Diclofena* Current Medications Current Outpatient Medications on File Prior to Visit Medication Sig predniSONE (DELTASONE) 10 mg tablet Take 4 tabs daily for 3 days, then 2 tabs daily for 3 days, then 1 tab daily for 3 days with food. colestipol (COLESTID) 1 gram tablet Take 1 tablet by mouth once daily. levothyroxine (SYNTHROID) 112 mcg tablet Take 1 tablet by mouth once daily. Take on empty stomach. For thyroid pantoprazole DR (PROTONIX) 40 mg tablet Take 1 tablet by mouth daily before breakfast. Take on empty stomach, 1/2 hr before meal. pravastatin (PRAVACHOL) 40 mg tablet Take 1 tablet by mouth once daily. famotidine (PEPCID) 20 mg tablet Take 1 tablet by mouth once daily. terbinafine HCl (LAMISIL) 250 mg tablet Take 1 tablet by mouth once daily. albuterol HFA (VENTOLIN HFA) 90 mcg/actuation inhaler Inhale 2 Puffs as instructed every 6 hours asneeded for wheezing/shortness of breath. tretinoin (RETIN-A) 0.025 % topical cream Apply 1 application to affected area daily at bedtime. polyethylene glycol 3350 (MIRALAX, GLYCOLAX) 17 gram/dose powder Take 17 g by mouth twice daily. triamcinolone acetonide (NASACORT) 55 mcg nasal inhaler Use 2 Sprays in the nose once daily. aspirin(ECOTRIN LOW STRENGTH 81 MG TAB) Take one(1) tablet daily. ONE DAILY MULTI-VITAMIN TAB Take one(1) tablet daily. No current facility-administered medications on file prior to visit. Social History Social History Tobacco Use Smoking status: Every Day Packs/day: 0.75 Years: 53.00 Additional pack years: 0.00 Total pack years: 39.75 Types: Cigarettes Smokeless tobacco: Never Vaping Use Vaping Use: Never used Substance Use Topics Alcohol use: Yes Comment: occasionally Drug use: No EXAM: BP 122/70 Pulse 74 Resp 16 Wt 57.4 kg (126 lb 9.6 oz) BMI 22.43 kg/m General Appearance: Well appearing, alert, in no acute distress, well-hydrated, well nourished. Skin: right hip; seborrheic keratosis Lungs: Lungs clear to auscultation. No wheezing, rhonchi, rales.. Heart: RRR without murmur, gallop, or rubs. No ectopy. Finger: nail fungus to left thumb nail Health Maintenance List SHINGRIX VACCINE(2 of 3) due on 08/08/2012 ADVANCE DIRECTIVE DISCUSSION Never done COVID-19 VACCINE(5 - Pfizer series) due on 08/10/2022 MAMMOGRAM due on 01/11/2023 INFLUENZA(1) due on 03/03/2023 ANNUAL PCP TEAM CHRONIC DISEASE VISIT due on 11/01/2023 LUNG CANCER SCREENING due on 11/15/2023 DIABETES SCREEN due on 08/18/2025 LIPID SCREEN due on 08/18/2027 COLORECTAL CANCER SCREENING due on 11/13/2028 DTAP,TDAP,TD(3 - Td or Tdap) due on 12/13/2029 BONE DENSITY Completed DEPRESSION ASSESSMENT Completed HEPATITIS C SCREENING Completed PNEUMOCOCCAL: 65+ Completed Data reviewed Appointment on 02/20/2023 Component Date Value Cholesterol, Total 02/20/2023 193 Triglyceride 02/20/2023 85 HDL Cholesterol 02/20/2023 60 Non HDL Cholesterol 02/20/2023 133 (H) Fasting Time 02/20/2023 12.5 VLDL Cholesterol 02/20/2023 17 TC:HDL Ratio 02/20/2023 3.22 LDL Cholesterol 02/20/2023 116 (H) LDL:HDL Ratio 02/20/2023 1.93 Protein, Total 02/20/2023 6.6 Albumin 02/20/2023 4.4 Calcium, Total 02/20/2023 9.8 Bilirubin, Total 02/20/2023 0.3 Alkaline Phosphatase 02/20/2023 68 AST 02/20/2023 32 ALT 02/20/2023 19 Glucose 02/20/2023 103 (H) BUN 02/20/2023 14 Creatinine 02/20/2023 0.75 Sodium 02/20/2023 140 Potassium 02/20/2023 4.5 Chloride 02/20/2023 106 (H) CO2 02/20/2023 26 Anion Gap 02/20/2023 8 (L) Estimated Glomerular Adan* 02/20/2023 84 Hemoglobin A1C 02/20/2023 6.2 (H) Estimated Average Glucose 02/20/2023 131 TSH 02/20/2023 0.463 ASSESSMENT/PLAN: 1. Hypothyroidism, unspecified type - ICD9: 244.9, ICD10: E03.9 (primary diagnosis) - Instructed patient on importance of taking on an empty stomach either first thing in the morning or at bedtime. Continue current medications. 2. Encounter for screening mammogram for malignant neoplasm of breast - ICD9: V76.12, ICD10: Z12.31 - Encouraged monthly BSE - Follow up for annual exam in one year. 3. Hyperlipidemia, unspecified hyperlipidemia type - ICD9: 272.4, ICD10: E78.5 - Controlled - Continue current medications - Counseled on healthy diet and regular exercise - Discussed need for and benefit of weight loss. BMI 22.43 kg/(m^2) 4. Gastroesophageal reflux disease, unspecified whether esophagitis present - ICD9: 530.81, ICD10: K21.9 - stable Continue current medications. 5. Irritable bowel syndrome, unspecified type - ICD9: 564.1, ICD10: K58.9 Continue current medications. 6. Nail fungus - ICD9: 110.1, ICD10: B35.1 Continue with OTC tx Discuss with Dr. Montrell Suero 7. Seborrheic keratosis - ICD9: 702.19, ICD10: L82.1 Right hip Discuss with Nimo Morrison Follow up in 6 months with labs prior. I agree with the Chief Complaint, ROS, and Past Histories independently gathered by the clinical manager client support and the remaining scribed note accurately describes my personal service to the patient.. Medical Decision Making: Problems: Moderate: 2+ stable chronic illnesses Data: Unique test result(s) reviewed: 3+ Unique test(s) ordered: 3+ Risk: Moderate: Drug management Medical Decision Making Level: 4 - Moderate Pepe Reyes MD The documentation for this note was completed by Aracely Pires Ma acting as scribe for Pepe Reyes MD. February 27, 2023 12:46 PM. Aracely Pires Ma documented in this encounterHocking [facility]06-02-[facility]23 Instructions* Patient Instructions* Jina Ruiz APRN.CANCER REGISTRAR - 12/02/2022 4:54 PM EDT COUGH: Your doctor wants you to have this information about coughing. The body has a cough reflex which helps expel mucous secretions and irritants from the lung and airway passages. Cough spasms are periods of continuous coughing lasting several minutes. Most coughs is caused by virus infections which may last for up to 2-3 weeks. Coughing helps to protect the lung from pneumonia. A persistent cough lasting longer than 4-6 weeks requires medical evaluation by your primary care doctor. Treatment of cough includes measures to loosen the cough and thin the mucous. Warm liquids, cough drops, and nonprescription cough medicine may help reduce dry hacking cough. Use a humidifier if necessary as dry air can make coughs worse. Ultrasonic humidifiers are especially useful as they kill molds and many bacteria. Some cough medicines have antihistamines, decongestants, or alcohol in them; there is no proof that any of these help control cough. Prescription cough medicine or those with dextromethorphan (DM) should be reserved for dry coughs that prevent sleep or cause spasms or chest pain. Avoid any exposure to cigarette smoke as this will worsen the cough or make it last much longer. Call your doctor right away if you or your child have increased breathing difficulty, a high fever, a cough that lasts longer than 3 weeks, or other serious complaints. documented in this encounterHocking [facility]06-02-[facility]23 History of Present illness Narrative* Jina Ruiz APRN.CNP - 12/02/2022 4:35 PM EDT This note was created using [employer]. Subjective Roman Kuhn is a 71 year old female. 71 year old female with PMH hyperlipidemia, GERD, IBS, thyroid presents for multiple complaints. FB finger Thistle Acute onset yesterday Right ring finger Working on garden and endorses while weeding, went right in States she has attempted to remove without success Right hand dominant. Denies loss of sensation, reduced range of motion. Cough X one week States that she has been staining her boyfriends deck and states that the chemicals irritated here Low grade fever +harsh burning cough +productive sputum +tobacco usage. Denies history of COPD Denies accompanying URI sx. Denies CP. Denies dyspnea. The history is provided by the patient. No japanese interpreter was used. Foreign Body The incident occurred 12 to 24 hours ago. Suspected object: thistle Intake: right ring finger. The incident was reported. The incident was witnessed/reported by The patient. Associated symptoms include congestion and coughing. Pertinent negatives include no abdominal pain, chest pain, choking, difficulty breathing, drainage, drooling, fever, hearing loss, nosebleeds, sore throat, trouble swallowing, vomiting or wheezing. Cough This is a new problem. The current episode started more than 2 days ago. The problem occurs constantly. The problem has not changed since onset.The cough is Productive of sputum. The maximum temperature recorded prior to her arrival was 100 to 100.9 F. Associated symptoms include chills. Pertinent negatives include no chest pain, no sweats, no weight loss, no ear congestion, no ear pain, no headaches, no rhinorrhea, no sore throat, no myalgias, no shortness of breath, no wheezing and no eye redness. She has tried nothing for the symptoms. The treatment provided no relief. She is a smoker. Herpast medical history does not include bronchitis, pneumonia, bronchiectasis, COPD, emphysema or asthma. PAST MEDICAL HISTORY Diagnosis Date Abdominal pain, epigastric Allergic rhinitis, cause unspecified Allergic rhinitis Esophageal reflux IBS (irritable bowel syndrome) constipation primarily Other and unspecified hyperlipidemia Unspecified hypothyroidism PAST SURGICAL HISTORY Procedure Laterality Date ABDOMINAL SURGERY HX BIOPSY BREAST OPEN INCISIONAL 08/14/2017 left stereotactic breast biopsy w/clip placement [facility] COLONOSCOPY FLX DX W/COLLJ SPEC WHEN PFRMD 12/18/2003 Colonoscopy COLONOSCOPY FLX DX W/COLLJ SPEC WHEN PFRMD 03/11/2008 Colonoscopy COLONOSCOPY FLX DX W/COLLJ SPEC WHEN PFRMD 07/19/2012 Colonoscopy COLONOSCOPY FLX DX W/COLLJ SPEC WHEN PFRMD 11/13/2018 Colonoscopy COSMETIC ASSESSMENT EGD 09/01/2020 ESOPHAGOGASTRODUODENOSCOPY TRANSORAL DIAGNOSTIC 03/12/2012 EGD ESOPHAGOGASTRODUODENOSCOPY TRANSORAL DIAGNOSTIC 11/13/2018 EGD EYE SURGERY HX LAPS SURG CHOLECYSTECTOMY W/CHOLANGIOGRAPHY 04/17/2012 Normal IOC PAST SURGICAL HISTORY OF hemmorhoidectomy PAST SURGICAL HISTORY OF 1969 ventral hernia repair - [place] - unknown for mesh PAST SURGICAL HISTORY OF age 27 partial hysterectomy PAST SURGICAL HISTORY OF 1998 benign breast bx PAST SURGICAL HISTORY OF 07/2002 lasik eye surgery PAST SURGICAL HISTORY OF 07/2006 recheck and enhancement on eye surgery PAST SURGICAL HISTORY OF Bilateral 2019 OD - 08/21, OS - 09/[address] Stock. Cataract implants RHINP PRIM LAT&ALAR CRTLGS&/ELVTN NASAL TI Rhinoplasty x 2 VAGINAL HYSTERECTOMY ALLERGIES Ceclor [Cefaclor], Anaprin [Other], Avelox [Moxifloxacin Hcl], Bactrim [Sulfamethoxazole], Biaxin [Clarithromycin], Celexa [Citalopram Hydrobromide], Chlorzinex [Other], Cipro [Ciprofloxacin], Entex [Phenylephrine-Guaifenesin], Erythromycin, Fintex [Other], Levsinex [Hyoscyamine Sulfate],Lipitor [Atorvastatin Calcium], Naldecon Senior Dx [Dextromethorphan-Guaifenesin], Ornade [Other], Panelor [Other], Parafon Forte Dsc [Chlorzoxazone], Paxil [Paroxetine Hcl], Sporostac [Other], Sulfa(Sulfonamide Antibiotics), Suprax [Cefixime], Urispas [Flavoxate Hcl], and Voltaren [Diclofenac Sodium] MEDICATIONS colestipol (COLESTID) 1 gram tablet Take 1 tablet by mouth once daily. levothyroxine (SYNTHROID) 112 mcg tablet Take 1 tablet by mouth once daily. Take on empty stomach. For thyroid pantoprazole DR (PROTONIX) 40 mg tablet Take 1 tablet by mouth daily before breakfast. Take on empty stomach, 1/2 hr before meal. pravastatin (PRAVACHOL) 40 mg tablet Take 1 tablet by mouth once daily. famotidine (PEPCID) 20 mg tablet Take 1 tablet by mouth once daily. terbinafine HCl (LAMISIL) 250 mg tablet Take 1 tablet by mouth once daily. albuterol HFA (VENTOLIN HFA) 90 mcg/actuation inhaler Inhale 2 Puffs as instructed every 6 hours asneeded for wheezing/shortness of breath. tretinoin (RETIN-A) 0.025 % topical cream Apply 1 application to affected area daily at bedtime. polyethylene glycol 3350 (MIRALAX, GLYCOLAX) 17 gram/dose powder Take 17 g by mouth twice daily. triamcinolone acetonide (NASACORT) 55 mcg nasal inhaler Use 2 Sprays in the nose once daily. aspirin(ECOTRIN LOW STRENGTH 81 MG TAB) Take one(1) tablet daily. ONE DAILY MULTI-VITAMIN TAB Take one(1) tablet daily. FAMILY HISTORY Problem Relation Age of Onset Prostate Cancer Father Coronary Artery Disease Father late in life; enlarged heart; smoked Heart Mother valve, age 81 Colon Cancer Other none Diabetes Other none Social History Tobacco Use Smoking status: Every Day Packs/day: 0.75 Years: 53.00 Pack years: 39.75 Types: Cigarettes Smokeless tobacco: Never Vaping Use Vaping Use: Never used Substance Use Topics Alcohol use: Yes Comment: occasionally Drug use: No Review of Systems Constitutional: Positive for chills. Negative for fever and weight loss. HENT: Positive for congestion. Negative for drooling, ear pain, hearing loss, nosebleeds, rhinorrhea, sore throat and trouble swallowing. Eyes: Negative for redness. Respiratory: Positive for cough. Negative for choking, shortness of breath and wheezing. Cardiovascular: Negative for chest pain. Gastrointestinal: Negative for abdominal pain and vomiting. Musculoskeletal: Negative for myalgias. Skin: Positive for wound. Allergic/Immunologic: Positive for environmental allergies. Neurological: Negative for dizziness, facial asymmetry, light-headedness and headaches. Hematological: Negative for adenopathy. Does not bruise/bleed easily. Psychiatric/Behavioral: Negative for agitation and behavioral problems. Objective BP 120/68 Pulse 98 Temp 37.4 C (99.4 F) (Tympanic) Resp 18 Wt 59 kg (130 lb) SpO2 97% BMI 23.03 kg/m Physical Exam Vitals and nursing note reviewed. Constitutional: General: She is not in acute distress. Appearance: Normal appearance. She is normal weight. She is not ill-appearing, toxic-appearing or diaphoretic. HENT: Head: Normocephalic and atraumatic. Right Ear: Ear canal and external ear normal. Left Ear: Ear canal and external ear normal. Nose: Nose normal. No congestion or rhinorrhea. Mouth/Throat: Mouth: Mucous membranes are moist. Pharynx: No oropharyngeal exudate or posterior oropharyngeal erythema. Eyes: General: Right eye: No discharge. Left eye: No discharge. Extraocular Movements: Extraocular movements intact. Conjunctiva/sclera: Conjunctivae normal. Pupils: Pupils are equal, round, and reactive to light. Cardiovascular: Rate and Rhythm: Normal rate and regular rhythm. Pulses: Normal pulses. Heart sounds: Normal heart sounds. No murmur heard. No friction rub. Pulmonary: Effort: Pulmonary effort is normal. No respiratory distress. Breath sounds: Normal breath sounds. No stridor. No wheezing, rhonchi or rales. Chest: Chest wall: No tenderness. Abdominal: General: Abdomen is flat. There is no distension. Palpations: Abdomen is soft. There is no mass. Tenderness: There is no abdominal tenderness. There is no right CVA tenderness, left CVA tenderness, guarding or rebound. Hernia: No hernia is present. Musculoskeletal: General: No swelling, tenderness, deformity or signs of injury. Normal range of motion. Cervical back: Normal range of motion and neck supple. No rigidity. Right lower leg: No edema. Left lower leg: No edema. Lymphadenopathy: Cervical: No cervical adenopathy. Skin: General: Skin is warm and dry. Capillary Refill: Capillary refill takes less than 2 seconds. Coloration: Skin is not jaundiced or pale. Findings: Erythema present. No bruising, lesion or rash. Comments: + FB noted at Pad of distal phalanx Neurological: General: No focal deficit present. Mental Status: She is alert and oriented to person, place, and time. Cranial Nerves: No cranial nerve deficit. Sensory: No sensory deficit. Motor: No weakness. Coordination: Coordination normal. Gait: Gait normal. Psychiatric: Mood and Affect: Mood normal. Behavior: Behavior normal. Thought Content: Thought content normal. Judgment: Judgment normal. Assessment and Plan ASSESSMENT/PLAN: 1. Acute cough - ICD9: 786.2, ICD10: R05.1 X 1 week +tobacco usage Endorses she also inhaled chemicals while trying to stain her boyfriends deck. - XR CHEST 2V FRONTAL/LAT-negative RX Prednisone 2. Foreign body in skin of finger, initial encounter - ICD9: 915.6, ICD10: S60.459A Superficial Area has been picked at by patient and friends. Utilized alligator forceps to fully remove. The thistle Patient feels immediate relief. Jina Ruiz APRN.CNP documented in this encounterHocking [facility]05-16-2023 Miscellaneous Notes* Telephone Encounter - Peterson Norton APRN.CNP - 11/15/2022 4:20 PM EDT Pt notified of results LDCT Lung Rads category 2-repeat CT in 12 mos documented in this encounterHocking Valley [facility] Hospital05-15-2023 History of Present illness Narrative* Nehal Gonzalez, RT(R) - 11/14/2022 3:20 PM EDT Radiology Service Progress Note PATIENT NAME: Roman Kuhn DATE OF SERVICE: November 14, 2022 TIME: 4:02 PM PATIENT IDENTITY VERIFICATION COMPLETED USING TWO (2) IDENTIFIERS: Name and Date of confirmedby patient verbally. FALL SCREENING: Has the patient had 2 falls in the last year or 1 fall with injury or currently using an Ambulatory Assistive Device (Walker, Cane, Wheelchair, Crutches, etc.)? No PATIENT GENDER DATA: Female. status: : No status: NO. PATIENT RELEVANT IMPLANT DATA REVIEWED: Yes RADIOLOGY DEPARTMENT: CT; Exam(s) Completed: Chest PERIPHERAL IV DATA: Not applicable SIGNED BY: RT Tristin(R) November 14, 2022 4:02 PM documented in this encounterHocking Valley [facility] Hospital05-08-2023 History of Present illness Narrative* Jessi Bloom - 11/07/2022 9:36 AM EDT POPULATION HEALTH NAVIGATION OUTREACH Action/[facility] [place] Support: Called pt to schedule an appt in Pain Management. Lvm for pt to call [phone] for scheduling. Patient Identified by Name and : NO Outreach Outcome/Action Unable to reach patient: Left message Did you use a PCP flex slot to schedule this appointment? No Reason for Outreach Care Gap or Scheduling/Wellness visits Payer: Payor: [employer] MEDICARE / Plan: [place] / Product Type: HMO / Care Gap Reviewed:: Specialty Scheduling Reminder: Reminder note to check Health Maintenance for items below Health Maintenance items due: LUNG CANCER SCREENING Never done SHINGRIX VACCINE(2 of 3) due on 08/08/2012 ADVANCE DIRECTIVE DISCUSSION Never done MAMMOGRAM due on 01/11/2023 Navigation Signature: Jessi Bloom November 07, 2022 9:39 AM documented in this encounterHocking Valley [facility]05-02-[facility]23 Instructions* Patient Instructions* Peterson Norton APRN.CNP - 11/01/2022 10:[address] Lung Screen Results The CT scan that you will have done will show if you have any nodules (small spots) in your lungs that are suspicious for cancer. Around 90% of the patients who have this scan done are found to have at least one nodule. Most nodules are benign (not cancer) and of no harm to you at all. A specialistwill make a scientific evaluation about whether or not a nodule is worrisome based on its size and shape. The radiologist who will read your scan will put it into one of four categories: LUNG-RADS Category Description Overall Probability of Malignancy Recommended Follow-Up 1 Negative No nodules and definitely benign (non-cancerous nodules) Essentially 0. 1 Year - Follow-up Low dose CT 2 Benign Appearance or Behavior Nodules with a very low likelihood of becoming cancer due to size or lack of growth Less than 1% 1 Year - Follow-up Low dose CT 3 Probably Benign Probably benign finding, short term follow-up recommended 1 to 2% 6 Months - Follow-up CT 4 A,B,or X Suspicious Findings for which additional diagnostic testing and/or biopsy is recommended Will be calculated based on nodule characteristics. Dependent on what is seen on the exam. [address], PET, Biopsy At times, we may see something outside of the lungs on the scan that could be a health concern. Below are some of the most common findings: S Clinically Significant or Potentially Clinically Significant Findings (non lung cancer) Referral or additional imaging/labs depending on result. Approximately 10% of people receive this result. Coronary Artery Calcifications (Moderate or Severe) - Referral to cardiology or PCP for further work-up and recommendations. Thyroid Nodule - TSH level and Thyroid Ultrasound dependent on size, referral to endocrinology. Adrenal Nodule - Blood work and referral to endocrinology. Others Lung Cancer Screening hotline: [phone] Lung Cancer Screening [phone] Billing Questions: or [email or web address] Lung Cancer Screening Team: Marielos Armas CNP; Rach Monique PA-C; Nehal Cisneros CNP; Tiki William CNP, Yamilet Magaña PA-C, Evie Nguyen PA-C, Peterson Norton, CANCER REGISTRAR : [phone] documented in this encounterHocking Valley [facility]05-02-2023 History of Present illness Narrative* Peterson Norton APRN.CANCER REGISTRAR - 11/01/2022 10:10 AM EDT Images from the original note were not included. LUNG SCREENING VISIT PRIMARY CARE PHYSICIAN: Pepe Reyes MD PULMONARY PROVIDER: None Results will be communicated via letter or electronic record if applicable. Visit Delivery: In Person Patient Visit Type: New to Screening Current or Ex-smoker? [Current Exam Type: baseline LDCT Number of Pack Years: 39.75 Current smoker (=0) Results will be communicated via letter or electronic record. REQUESTER: The referring provider advised the patient to have screening. HISTORY OF PRESENT ILLNESS: Roman Kuhn is a 71 year old active smoker who presents for lung screening. At age 6 mos of age had pneumonia. Respiratory symptoms include: SOB: No Chest tightness: No Coughing: Yes: With mucus White with bronchitis Hemoptysis: No Wheezing: Yes, improving with treatment for bronchitis Fever/Chills: No Recent Respiratory Infection: Yes, on second antibiotic for bronchitis Unintentional weight loss: No Last 6 Encounter Wt Readings: Date: Wt: 11/01/2022 59 kg (130 lb) 10/31/2022 59.1 kg (130 lb 3.2 oz) 10/20/2022 59 kg (130 lb) 09/05/2022 58.5 kg (129 lb) 08/29/2022 58.9 kg (129 lb 14.4 oz) 07/18/2022 58.6 kg (129 lb 3.2 oz) ECOG PERFORMANCE STATUS: 0- Fully active, able to carry on all pre-disease performance w/o restriction. Modified Medical Research [place] Dyspnea Scale (MMRC) I only get breathless with strenous exercise 0 Lung Cancer Risk Factors: 1.Tobacco Use: Start Age 16, Quit Age N/A , Average packs per day 0.75, Pack Years 39. 2. Passive Smoke Exposure: Yes as a child and as an adult. 3. Personal hx of malignancy: No. 4. 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 5. Race: White. 6. Education:High school graduate 7. BMI:Body mass index is 23.03 kg/m . 8. COPD: No 9. Pneumonia in the past 5 years: No 10. Is there a history of lung cancer in a first degree relative? No. 11. Is there a history of lung cancer in a non first degree relative? No 12. Is there a history of any other cancer in a first degree relative? Yes. Father had prostate cancer PAST MEDICAL HISTORY Diagnosis Date Abdominal pain, epigastric Allergic rhinitis, cause unspecified Allergic rhinitis Esophageal reflux IBS (irritable bowel syndrome) constipation primarily Other and unspecified hyperlipidemia Unspecified hypothyroidism PAST SURGICAL HISTORY Procedure Laterality Date ABDOMINAL SURGERY HX BIOPSY BREAST OPEN INCISIONAL 08/14/2017 left stereotactic breast biopsy w/clip placement [facility] COLONOSCOPY FLX DX W/COLLJ SPEC WHEN PFRMD 12/18/2003 Colonoscopy COLONOSCOPY FLX DX W/COLLJ SPEC WHEN PFRMD 03/11/2008 Colonoscopy COLONOSCOPY FLX DX W/COLLJ SPEC WHEN PFRMD 07/19/2012 Colonoscopy COLONOSCOPY FLX DX W/COLLJ SPEC WHEN PFRMD 11/13/2018 Colonoscopy COSMETIC ASSESSMENT EGD 09/01/2020 ESOPHAGOGASTRODUODENOSCOPY TRANSORAL DIAGNOSTIC 03/12/2012 EGD ESOPHAGOGASTRODUODENOSCOPY TRANSORAL DIAGNOSTIC 11/13/2018 EGD EYE SURGERY HX LAPS SURG CHOLECYSTECTOMY W/CHOLANGIOGRAPHY 04/17/2012 Normal IOC PAST SURGICAL HISTORY OF hemmorhoidectomy PAST SURGICAL HISTORY OF 1969 ventral hernia repair - [place] - unknown for mesh PAST SURGICAL HISTORY OF age 27 partial hysterectomy PAST SURGICAL HISTORY OF 1998 benign breast bx PAST SURGICAL HISTORY OF 07/2002 lasik eye surgery PAST SURGICAL HISTORY OF 07/2006 recheck and enhancement on eye surgery PAST SURGICAL HISTORY OF Bilateral 2019 OD - 08/21, OS - 09/[address] Stock. Cataract implants RHINP PRIM LAT&ALAR CRTLGS&/ELVTN NASAL TI Rhinoplasty x 2 VAGINAL HYSTERECTOMY FAMILY HISTORY Problem Relation Age of Onset Prostate Cancer Father Coronary Artery Disease Father late in life; enlarged heart; smoked Heart Mother valve, age 81 Colon Cancer Other none Diabetes Other none colestipol (COLESTID) 1 gram tablet Take 1 tablet by mouth once daily. doxycycline (VIBRA-TABS) 100 mg tablet Take 1 tablet by mouth twice daily for 10 days. meloxicam (MOBIC) 15 mg tablet Take 1 tablet by mouth once daily. With food. levothyroxine (SYNTHROID) 112 mcg tablet Take 1 tablet by mouth once daily. Take on empty stomach. For thyroid pantoprazole DR (PROTONIX) 40 mg tablet Take 1 tablet by mouth daily before breakfast. Take on empty stomach, 1/2 hr before meal. pravastatin (PRAVACHOL) 40 mg tablet Take 1 tablet by mouth once daily. famotidine (PEPCID) 20 mg tablet Take 1 tablet by mouth once daily. terbinafine HCl (LAMISIL) 250 mg tablet Take 1 tablet by mouth once daily. albuterol HFA (VENTOLIN HFA) 90 mcg/actuation inhaler Inhale 2 Puffs as instructed every 6 hours asneeded for wheezing/shortness of breath. tretinoin (RETIN-A) 0.025 % topical cream Apply 1 application to affected area daily at bedtime. (Patient not taking: No sig reported) polyethylene glycol 3350 (MIRALAX, GLYCOLAX) 17 gram/dose powder Take 17 g by mouth twice daily. triamcinolone acetonide (NASACORT) 55 mcg nasal inhaler Use 2 Sprays in the nose once daily. aspirin(ECOTRIN LOW STRENGTH 81 MG TAB) Take one(1) tablet daily. ONE DAILY MULTI-VITAMIN TAB Take one(1) tablet daily. ALLERGIES Allergen Reactions Ceclor [Cefaclor] ER for anaphylaxis Anaprin [Other] Avelox [Moxifloxaci* Intolerance Bactrim [Sulfametho* Unknown Insides were raging Biaxin [Clarithromy* Celexa [Citalopram * Unknown Chlorzinex [Other] Cipro [Ciprofloxaci* Entex [Phenylephrin* Erythromycin Fintex [Other] Levsinex [Hyoscyami* Lipitor [Atorvastat* Naldecon Senior Dx * Ornade [Other] Panelor [Other] Parafon Forte Dsc [* Paxil [Paroxetine H* Sporostac [Other] Sulfa (Sulfonamide * Other: See Comments Suprax [Cefixime] Urispas [Flavoxate * Voltaren [Diclofena* The medications and allergies were reviewed and reconciled for this patient and deemed current. Health Maintenance Immunization History Administered Date(s) Administered COVID-19 vaccine, age 12+ yr, bivalent (PreciouStatus) 04/09/2022 TD Adult 01/04/2002 influenza (HD-IIV) vaccine, age 65+ yr, high dose, PF (FLUZONE HIGH-DOSE) 04/02/2015 04/08/2016 03/24/2017 03/31/2018 04/27/2019 influenza (HD-IIV4) vaccine, age 65+ yr, high dose, quadrivalent, PF (FLUZONE HIGH-DOSE) 04/01/2020 03/26/2021 03/25/2022 influenza (IIV3) vaccine, age 3+ yr, trivalent (AFLURIA, FLULAVAL, FLUVIRIN, FLUZONE) 04/16/2014 influenza vaccine, unspecified formulation 05/18/2005 05/15/2006 05/08/2007 05/07/2008 03/28/2009 04/17/2010 04/02/2011 03/24/2012 04/13/2013 pneumococcal (PCV13) vaccine, 13 valent (PREVNAR 13) 07/22/2015 pneumococcal (PPV23) vaccine, 23 valent (PNEUMOVAX 23) 12/17/2013 tetanus diphtheria pertussis (Tdap) vaccine, age 7+ yr (ADACEL, BOOSTRIX) 12/04/2012 12/14/2019 zoster (ZVL) vaccine, live (ZOSTAVAX) 06/13/2012 Colonoscopy: 11/13/2018 Mammogram: 01/11/2022 DATA REVIEW I have directly visualized the testing documented: None Prior Imaging: Last CT/CTA Chest/Lungs No resulted procedures found. Last CT Chest - Impression Only No resulted procedures found. Last XR Chest - Impression Only XR CHEST 2V FRONTAL/LAT Exam End: 10/31/2022 9:26 AM (Final result) Impression: IMPRESSION: No acute radiographic abnormality. ... 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 Interpretive Statements Pre & Post BD: The exhaled (FVC) spirometry maneuver meets ATS/ERS acceptability and repeatability standards. The inspired (FIVC) spirometry maneuver is less than the FVC maneuver. Medications and Allergies were reviewed for possible drug interactions per policy. No contraindications or sensitivities were noted. No respiratory meds taken before testing. 2 puffs Albuterol (180 mcg) delivered by MDI via holding chamber. HR pre= 89/min, HR post= 89/min. //KM IMPRESSION: Spirometry is normal. There was not a significant bronchodilator response. Electronically Signed On 11-04-2021 14:29:34 EDT by Sabrina Espino M.D. 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 The inspired (FIVC) spirometry maneuver is less than the FVC maneuver. Medications and Allergies were reviewed for possible drug interactions per policy. No contraindications or sensitivities were noted. No respiratory meds taken before testing. 2 puffs Albuterol (180 mcg) delivered by MDI via holding chamber. HR pre= 89/min, HR post= 89/min. //KM Review Status: Not Reviewed PRE-BRONCH POST-BRONCH Pred LLN ULN Actual %Pred Actual %Chng SPIROMETRY FVC (L) 2.57 1.85 3.32 2.88 112 2.84 -1 FEV1 (L) 1.99 1.43 2.52 2.13 107 2.19 2 FEV1/FVC 0.78 0.64 0.90 0.74 94 0.77 4 FEF25 (L/sec) 6.53 6.58 0 FEF50 (L/sec) 2.87 1.26 4.48 2.23 77 2.61 16 FEF75 (L/sec) 0.39 0.14 1.07 0.41 104 0.46 12 LLA93-92 (L/sec) 1.69 0.76 3.04 1.45 85 1.72 18 PEF L/s (L/sec) 5.12 3.51 6.73 7.53 147 7.42 -1 FIVC (L) 2.68 2.58 -3 FIF50 (L/sec) 3.91 3.85 -1 PIF (L/sec) 3.96 3.86 -2 Time (sec) 8.77 8.70 0 KAMLA (L) 0.08 0.11 39 FET PEF (sec) 0.06 0.08 34 PHYSICAL EXAM: BP 112/62 Pulse 108 Resp 18 Wt 59 kg (130 lb) SpO2 96% BMI 23.03 kg/m Deferred ASSESSMENT and RECOMMENDATIONS: 1. Screening for lung cancer: Six year risk for lung cancer: 7.5% Source: Rev I have determined that the patient is eligible for a low dose CT based on age, absence of signs or symptoms of lung cancer, and total pack years: Yes. The patient and I engaged in shared decision making, including the use of one or more decision aids, to include benefits, harms, follow-up diagnostic testing, over-diagnosis, false positive rate, andtotal radiation exposure. The patient understands and feels comfortable with it: Yes. The patient was counseled on the importance of adherence to annual LDCT lung cancer screening, impact of comorbidities and ability or willingness to undergo diagnosis and treatment. The patient understands and feels comfortable with it:Yes. 2. Nicotine dependence: The patient was counseled on the importance of smoking cessation if currentsmoker and, if appropriate, offered additional tobacco cessation counseling services - Smoking Cessation Counseling. SMOKING CESSATION COUNSELING Smoking cessation methods including Nicotine Replacement Therapies and Behavior Modification were discussed with the patient and assistance offered. Pt plans to try nicotine patches. Start at 14 mg per day x 28 days, then decrease to 7 mg per day x 14-28 days. The medical conditions adversely affected by cigarette use include:COPD, Emphysema, and Lung Cancer. The patient is currently ready to quit. I personally spent 5 minutes in counseling. The time spent in smoking cessation counseling is exclusive of any other counseling during this visit. Peterson Norton APRN.CANCER REGISTRAR NPI #: November 01, 2022 10:12 AM documented in this encounterHocking Valley [facility]05-01-2023 Miscellaneous Notes* Telephone Encounter - Helen Pfeiffer MA - 10/31/2022 9:56 AM EDT Unable to reach patient. Left detailed message on identified VM. Helen Pfeiffer MA * Telephone Encounter - Rob Cardenas APRN.CNP - 10/31/2022 9:46 AM EDT Please let the patient know that the x-ray of her chest was normal. Rob Cardenas APRN.CNP documented in this encounterHocking Valley [facility] Hospital05-01-2023 History of Present illness Narrative* Mary Weiner RT(R) - 10/31/2022 9:20 AM EDT Radiology Service Progress Note PATIENT NAME: Roman Kuhn DATE OF SERVICE: October 31, 2022 TIME: 9:19 AM PATIENT IDENTITY VERIFICATION COMPLETED USING TWO (2) IDENTIFIERS: Name and Date of confirmedby patient verbally. FALL SCREENING: Has the patient had 2 falls in the last year or 1 fall with injury or currently using an Ambulatory Assistive Device (Walker, Cane, Wheelchair, Crutches, etc.)? No PATIENT GENDER DATA: Female. status: : No status: NO. PATIENT RELEVANT IMPLANT DATA REVIEWED: Yes RADIOLOGY DEPARTMENT: General X-ray: Exam(s) Completed: Chest X-Ray PERIPHERAL IV DATA: Not applicable SIGNED BY: RT Ever(R) October 31, 2022 9:19 AM documented in this encounterHocking Valley [facility]05-01-2023 History of Present illness Narrative* Rob Cardenas APRN.CNP - 10/31/2022 9:00 AM EDT Chief Complaint Patient presents with: Follow Up For: Bronchitis; not resesolved after medication TX HPI Roman Kuhn is a 71 year old female who presents here today for Above Complaints. follow up for cough. Patient here for follow-up regarding treatment of recent acute bronchitis. Temp was 99.2 F. Was in the office on October 20, approximately 9 to 10 days ago with cough, shortness of breath, wheezing. This has been ongoing for about 3 weeks. She was treated with azithromycin, Tessalon Perles, prednisone. She is half pack smoker per day. She had normal spirometry in 10/2021. Extensive allergy list to antibiotics. Uses nasacort and a net-pot for her allergies. Also uses mucinex. Using albuterol twicedaily since 10/20. At this time, the patient states that she continues to have some fevers, generally not feeling welleven after the treatment. Her current symptoms include cold, fatigue, tight breathing, some wheezing, cough is somewhat productive. Has a dry throat. No ear pain. Feels heavy on her feet. Past medical history, appointments, medications, allergies reviewed. EXAM: BP 127/79 Pulse 104 Temp 36.9 C (98.5 F) (Left Tympanic) Resp 16 Wt 59.1 kg (130 lb 3.2 oz) SpO2 97% BMI 23.07 kg/m General Appearance: Well appearing, alert, in no acute distress, well-hydrated, well nourished.. Eyes: Anicteric sclera. Pupils are equally round and reactive to light. Extraocular movements are intact. . Ears: External ears normal, canals clear. Nose/Sinuses: Nares normal, septum midline, mucosa normal, no drainage or sinus tenderness. Oropharynx: Lips, mucosa, and tongue normal, teeth and gums normal, oropharynx normal. Neck: Supple, no adenopathy; thyroid symmetric, normal size, no bruits. Lungs: No wheezing, rhonchi, rales. Cough lungs diminished in the bases. . Heart: RRR without murmur, gallop, or rubs. No ectopy. ASSESSMENT/PLAN: 1. Cough present for greater than 3 weeks - ICD9: 786.2, ICD10: R05.8 (primary diagnosis) -See #2 - DOXYCYCLINE HYCLATE 100 MG TABLET - XR CHEST 2V FRONTAL/LAT 2. Acute bronchitis, unspecified organism - ICD9: 466.0, ICD10: J20.9 -Ongoing for 4 to 5 weeks. Not getting better per patient. Check chest x-ray, set up for lung cancer screening in the future. Start doxycycline. Continue allergy medications, hydration, Mucinex. - DOXYCYCLINE HYCLATE 100 MG TABLET - XR CHEST 2V FRONTAL/LAT 3. Gastroesophageal reflux disease, unspecified whether esophagitis present - ICD9: 530.81, ICD10: K21.9 - Stable, continue current medication - COLESTIPOL 1 GRAM TABLET 4. Encounter for screening for lung cancer - ICD9: V76.0, ICD10: Z12.2 - CONSULT LUNG CANCER SCREENING CLINIC Rob Cardenas APRN.CESARIO I spent a total of 32 minutes on the date of the service which included preparing to see the patient, [id number] patient care, completing clinical documentation, obtaining and/or reviewing separately obtained history, performing a medically appropriate examination, counseling and educating the pat ient/family/caregiver, and ordering medications, tests, or procedures. This note was partly generated using [employer] voice recognition dictation and may contain some misspelled or inaccurate words missed on review. documented in this encounterHocking Valley Community Hospital04-27-2023 Miscellaneous Notes* Telephone Encounter - Julieta Mohan Ma - 10/27/2022 1:49 PM EDT Noted, will close encounter since referral has been placed. Pt will call back when ready to have referral sent to Dr. Mcdermott's office. Julieta Mohan Ma * Telephone Encounter - Pepe Reyes MD - 10/27/2022 11:55 AM EDT OK to refer as requested Pepe Reyes MD * Telephone Encounter - Barbra Harrington - 10/27/2022 9:38 AM EDT Called patient for clarification. Pt needs consult placed for pain management. Consult is pended. Pt will contact office when she wants notes and imaging sent to Dr. Clark office. Reports she started seeing a chiropractor yesterday and wants to continue with that and ortho to see if any improvement first. Barbra Harrington MA * Telephone Encounter - Betina Bridges - 10/26/2022 8:08 AM EDT Pt calling to ask pcp to place ortho referral for Dr. Caruso at [facility]. Pt would alsolike office to send over any xrays/ ov notes with referral. Please call pt with questions. documented in this encounterHocking Valley Community Hospital04-20-2023 Instructions* Patient Instructions* Elise Crocker APRN.CNP - 10/20/2022 10:24 AM EDT Start zpack take with food. Start prednisone, 40 mg daily, 2 tablets of the 20 mg, take with food. May continue to use albuterol inhaler as needed. May use Tessalon Perles as needed for cough. After you finish prednisone, may start Meloxicam (anti-inflammatory) 15 mg daily, if needed may cutin half and take twice daily with food to help with pain/inflammation. Follow up as needed. documented in this encounterHocking Valley Community Hospital04-20-2023 History of Present illness Narrative* Elise Crocker APRN.CNP - 10/20/2022 10:20 AM EDT This is a 71 year old female who presents today with: Patient presents with: Acute Visit: URI HISTORY OF PRESENT ILLNESS: Roman Kuhn is a 71 year old female. Patient presents with: Acute Visit: URI Here in the office for cough. Started 3 weeks ago. Cough is productive, yellow mucus. SOB or wheezing at times. Has been using albuterol inhaler which was helpful. Taking netipot, nasacort as needed.No fever or chills. Smoking 1/2 PPD. Chronic Right Knee Pain. Following with orthopedics. Refers that she had a knee injection several months ago which was helpful. Knee started to hurt again this week. Has a follow-up appointment with orthopedics in October. PAST MEDICAL HISTORY: PAST MEDICAL HISTORY Diagnosis Date Abdominal pain, epigastric Allergic rhinitis, cause unspecified Allergic rhinitis Esophageal reflux IBS (irritable bowel syndrome) constipation primarily Other and unspecified hyperlipidemia Unspecified hypothyroidism PAST SURGICAL HISTORY Procedure Laterality Date ABDOMINAL SURGERY HX BIOPSY BREAST OPEN INCISIONAL 08/14/2017 left stereotactic breast biopsy w/clip placement [facility] COLONOSCOPY FLX DX W/COLLJ SPEC WHEN PFRMD 12/18/2003 Colonoscopy COLONOSCOPY FLX DX W/COLLJ SPEC WHEN PFRMD 03/11/2008 Colonoscopy COLONOSCOPY FLX DX W/COLLJ SPEC WHEN PFRMD 07/19/2012 Colonoscopy COLONOSCOPY FLX DX W/COLLJ SPEC WHEN PFRMD 11/13/2018 Colonoscopy COSMETIC ASSESSMENT EGD 09/01/2020 ESOPHAGOGASTRODUODENOSCOPY TRANSORAL DIAGNOSTIC 03/12/2012 EGD ESOPHAGOGASTRODUODENOSCOPY TRANSORAL DIAGNOSTIC 11/13/2018 EGD EYE SURGERY HX LAPS SURG CHOLECYSTECTOMY W/CHOLANGIOGRAPHY 04/17/2012 Normal IOC PAST SURGICAL HISTORY OF hemmorhoidectomy PAST SURGICAL HISTORY OF 1969 ventral hernia repair - [place] - unknown for mesh PAST SURGICAL HISTORY OF age 27 partial hysterectomy PAST SURGICAL HISTORY OF 1998 benign breast bx PAST SURGICAL HISTORY OF 07/2002 lasik eye surgery PAST SURGICAL HISTORY OF 07/2006 recheck and enhancement on eye surgery PAST SURGICAL HISTORY OF Bilateral 2019 OD - 08/21, OS - 09/[address] Stock. Cataract implants RHINP PRIM LAT&ALAR CRTLGS&/ELVTN NASAL TI Rhinoplasty x 2 VAGINAL HYSTERECTOMY ALLERGIES Ceclor [Cefaclor], Anaprin [Other], Avelox [Moxifloxacin Hcl], Bactrim [Sulfamethoxazole], Biaxin [Clarithromycin], Celexa [Citalopram Hydrobromide], Chlorzinex [Other], Cipro [Ciprofloxacin], Entex [Phenylephrine-Guaifenesin], Erythromycin, Fintex [Other], Levsinex [Hyoscyamine Sulfate],Lipitor [Atorvastatin Calcium], Naldecon Senior Dx [Dextromethorphan-Guaifenesin], Ornade [Other], Panelor [Other], Parafon Forte Dsc [Chlorzoxazone], Paxil [Paroxetine Hcl], Sporostac [Other], Sulfa(Sulfonamide Antibiotics), Suprax [Cefixime], Urispas [Flavoxate Hcl], and Voltaren [Diclofenac Sodium] MEDICATIONS Current Outpatient Medications Medication Sig levothyroxine (SYNTHROID) 112 mcg tablet Take 1 tablet by mouth once daily. Take on empty stomach. For thyroid pantoprazole DR (PROTONIX) 40 mg tablet Take 1 tablet by mouth daily before breakfast. Take on empty stomach, 1/2 hr before meal. pravastatin (PRAVACHOL) 40 mg tablet Take 1 tablet by mouth once daily. colestipol (COLESTID) 1 gram tablet Take 1 tablet by mouth once daily. famotidine (PEPCID) 20 mg tablet Take 1 tablet by mouth once daily. terbinafine HCl (LAMISIL) 250 mg tablet Take 1 tablet by mouth once daily. albuterol HFA (VENTOLIN HFA) 90 mcg/actuation inhaler Inhale 2 Puffs as instructed every 6 hours asneeded for wheezing/shortness of breath. tretinoin (RETIN-A) 0.025 % topical cream Apply 1 application to affected area daily at bedtime. (Patient not taking: Reported on 09/26/2022) polyethylene glycol 3350 (MIRALAX, GLYCOLAX) 17 gram/dose powder Take 17 g by mouth twice daily. triamcinolone acetonide (NASACORT) 55 mcg nasal inhaler Use 2 Sprays in the nose once daily. aspirin(ECOTRIN LOW STRENGTH 81 MG TAB) Take one(1) tablet daily. ONE DAILY MULTI-VITAMIN TAB Take one(1) tablet daily. No current facility-administered medications for this visit. FAMILY HISTORY Problem Relation Age of Onset Prostate Cancer Father Coronary Artery Disease Father late in life; enlarged heart; smoked Heart Mother valve, age 81 Colon Cancer Other none Diabetes Other none Social History Tobacco Use Smoking status: Every Day Packs/day: 0.50 Years: 45.00 Pack years: 22.50 Types: Cigarettes Smokeless tobacco: Never Vaping Use Vaping Use: Never used Substance Use Topics Alcohol use: Yes Comment: occasionally Drug use: No REVIEW OF SYSTEMS GENERAL: No weight loss, malaise or fevers/chills HEENT: Negative for frequent or significant headaches, No changes in hearing or vision. NECK: Negative for lumps, goiter, pain and significant neck swelling RESPIRATORY: + Cough, wheezing, SOB CARDIOVASCULAR: Negative for chest pain, leg swelling, orthopnea, or palpitations GI: No nausea, vomiting, or diarrhea/constipation. No hematochezia/melena. No heartburn or reflux symptoms. : No history of dysuria, frequency or incontinence MUSCULOSKELETAL: Negative for joint pain or swelling. SKIN: Negative for lesions, rash, and itching ENDOCRINE: Negative for cold or heat intolerance, polyuria, polydipsia and goiter NEURO: No history of headaches, syncope, paralysis, seizures or tremors MOOD: Negative for depression, anxiety, or suicidal ideation. EXAM: BP 104/74 Pulse 113 Resp 20 Wt 59 kg (130 lb) SpO2 97% BMI 23.03 kg/m PHYSICAL EXAM: General Appearance: Well appearing, alert, in no acute distress, well-hydrated, well nourished. Skin: Skin color, texture, turgor normal, no suspicious rashes or lesions. Head: Normocephalic, no masses, lesions, tenderness or abnormalities. Eyes: Anicteric sclera. Extraocular movements are intact. Ears: External ears normal, canals clear. TMs dull Nose/Sinuses: Nares normal, septum midline, mucosa normal, no drainage or sinus tenderness. Oropharynx: Lips, mucosa, and tongue normal, teeth and gums normal, oropharynx normal. Neck: Supple, no adenopathy; thyroid symmetric, normal size, no bruits. Lungs: + Wheezing throughout bilaterally. Heart: RRR without murmur, gallop, or rubs. No ectopy. Extremities: No deformities, edema, skin discoloration, clubbing or cyanosis. Good capillary refill. Musculoskeletal: Right knee tender along lateral aspects of patella full range of motion, negative valgus/varus.. Peripheral Pulses: Normal, Capillary refill <2secs, strong peripheral pulses, Pulses palpable. Neurologic: Gait normal. . Sensation grossly intact. ASSESSMENT/PLAN: 1. Acute bronchitis, unspecified organism - ICD9: 466.0, ICD10: J20.9 (primary diagnosis) - Start Z-Sean take as directed. - Start prednisone burst 40 mg daily for the next 5 days. - Continue to use albuterol inhaler as needed for shortness of breath or wheezing. May use TessalonPerles as needed for cough. - Continue supportive care at home. - AZITHROMYCIN 250 MG TABLET - PREDNISONE 20 MG TABLET - BENZONATATE 100 MG CAPSULE 2. Chronic pain of right knee - ICD9: 719.46, 338.29, ICD10: M25.561, G89.29 - After prednisone burst May start meloxicam 15 mg daily for pain. Take with food. - Keep scheduled appointments with orthopedics - MELOXICAM 15 MG TABLET Follow-up as needed or sooner if symptoms get worse or do not improve. Discussed treatment plan and patient voices understanding. Patient's questions answered appropriately. Medications and potential side effects were discussed and patient voices understanding. Elise Crocker APRN.CESARIO This note was partially generated using [employer] voice recognition system. Note was reviewed for accuracy. There may be minor misspellings or grammar miscues with [employer] voice recognition. documented in this encounterHocking Valley [facility]04-10-2023 History of Present illness Narrative* Belinda Jason PA-C - 10/10/2022 1:48 PM EDT Belinda Jason PA-C Department of Orthopaedics Orthopaedics [facility] [address] Dept: [phone] Dept October 10, 2022 CHIEF COMPLAINT: Established Patient and Pain of the Left Knee and Established Patient and Pain of the Right Knee. ASSESSMENT: M17.0 Primary osteoarthritis of both knees (primary encounter diagnosis) M11.269 Chondrocalcinosis of knee, unspecified laterality SUMMARY/PLAN: Patient presents to discuss the pain in her knees, she had bilateral knee corticosteroid injectionsabout 2 weeks ago, she found injections to be very beneficial. She admits that last week she was feeling great, she did an entire day of yard work with little to no rest. Afterwards she was having pain in her low back and knees. She did use ice, heat and also some topicals. She went to see her chiropractor this morning and did get adjusted, her knee pain has greatly improved since her visit to the chiropractor. She tells me that she almost canceled today's visit as she was feeling much better. We discussed having her continue to be active though not overdo it. We will see her back for repeat corticosteroid injections as planned. KNEE EXAM: Left: Alignment: Neutral Range of motion is lacking a few degrees secondary to tight hamstrings degrees in extension and 110 degrees of flexion. Extension La degrees Pain with ROM: Yes Effusion: Slight Tender to the palpation of Medial femoral condyle, Lateral femoral condyle, Medial joint line, and Lateral joint line Pain with patellar compression: No Stability: Anterior/Posterior stable and Varus/Valgus stable Hip Exam: flexion to 100+ degrees, full extension, internal/external rotation adequate, and no painwith log roll Neurovascular Status: Sensation Intact, Moves foot and ankle up & down, and 2+ dorsalis pedis Right: Alignment: Neutral Range of motion is lacking a few degrees secondary to tight hamstrings degrees in extension and 115 degrees of flexion. Extension La degrees Pain with ROM: No Effusion: None Tender to the palpation of None Pain with patellar compression: No Stability: Anterior/Posterior stable and Varus/Valgus stable Hip Exam: flexion to 100+ degrees, full extension, internal/external rotation adequate, and no painwith log roll Neurovascular Status: Sensation Intact, Moves foot and ankle up & down, and 2+ dorsalis pedis Jenifer Kuhn was advised as to contrast therapies and/or to take analgesics/anti-inflammatories as needed and all contraindications were reviewed. Supporting Information Below: Medications: Current Outpatient Medications Medication Sig levothyroxine (SYNTHROID) 112 mcg tablet Take 1 tablet by mouth once daily. Take on empty stomach. For thyroid pantoprazole DR (PROTONIX) 40 mg tablet Take 1 tablet by mouth daily before breakfast. Take on empty stomach, 1/2 hr before meal. pravastatin (PRAVACHOL) 40 mg tablet Take 1 tablet by mouth once daily. colestipol (COLESTID) 1 gram tablet Take 1 tablet by mouth once daily. famotidine (PEPCID) 20 mg tablet Take 1 tablet by mouth once daily. terbinafine HCl (LAMISIL) 250 mg tablet Take 1 tablet by mouth once daily. albuterol HFA (VENTOLIN HFA) 90 mcg/actuation inhaler Inhale 2 Puffs as instructed every 6 hours asneeded for wheezing/shortness of breath. polyethylene glycol 3350 (MIRALAX, GLYCOLAX) 17 gram/dose powder Take 17 g by mouth twice daily. triamcinolone acetonide (NASACORT) 55 mcg nasal inhaler Use 2 Sprays in the nose once daily. aspirin(ECOTRIN LOW STRENGTH 81 MG TAB) Take one(1) tablet daily. ONE DAILY MULTI-VITAMIN TAB Take one(1) tablet daily. tretinoin (RETIN-A) 0.025 % topical cream Apply 1 application to affected area daily at bedtime. (Patient not taking: Reported on 09/26/2022) No current facility-administered medications for this visit. Allergies: Ceclor [Cefaclor], Anaprin [Other], Avelox [Moxifloxacin Hcl], Bactrim [Sulfamethoxazole], Biaxin [Clarithromycin], Celexa [Citalopram Hydrobromide], Chlorzinex [Other], Cipro [Ciprofloxacin], Entex [Phenylephrine- Guaifenesin], Erythromycin, Fintex [Other], Levsinex [Hyoscyamine Sulfate], Lipitor [Atorvastatin Calcium], Naldecon Senior Dx [Dextromethorphan- Guaifenesin], Ornade [Other],Panelor [Other], Parafon Forte Dsc [Chlorzoxazone], Paxil [Paroxetine Hcl], Sporostac [Other], Sulfa (Sulfonamide Antibiotics), Suprax [Cefixime], Urispas [Flavoxate Hcl], and Voltaren [Diclofenac Sodium] This note was partially generated using [employer] voice recognition system, and there may be some incorrect words, spellings, and punctuation that were not noted in checking the note before saving. Belinda Jason PA-C * Leeanne Montemayor Ma - 10/10/2022 1:30 PM EDT AMB ROOMING INTAKE FLOWSHEET DATA Pain Pain Level: 5 Pain Location: (bilateral knees) Description: Sore (clicking) Duration Amount of Time: (ongoing) Frequency: Continuous Intervention/Comfort measure: Cold documented in this encounterHocking Valley [facility]03-07-2023 Miscellaneous Notes* Telephone Encounter - Rosa Hidalgo LPN - 09/06/2022 9:07 AM EST Patient telephoned and made aware of results below. Voices understanding. Rosa Hidalgo LPN * Telephone Encounter - Rob Cardenas APRN.CNP - 09/06/2022 8:03 AM EST Please let the patient know that her COVID-19 was negative. Her complete blood count was okay. Her mono testing shows that she has had mono in the past but not currently. A lot of people have had mono in the past but did not have any symptoms, thus do not even know that they had it. Continue with medications as prescribed. Rob Cardenas APRN.CESARIO documented in this encounterHocking Valley [facility]03-06-2023 History of Present illness Narrative* Rob Cardenas APRN.CNP - 09/05/2022 10:40 AM EST Chief Complaint Patient presents with: Acute Visit: Ear pain intermittent with sinusitis & fatigue x 1 month HPI Roman Kuhn is a 71 year old female who presents here today for Above Complaints. Complaints of sinus and ear issues. She was recently in to see PCP on 08/29/2022 for routine follow up and had some complaints of PND, scratchy throat, cough, bilateral ear pain, chest tightness. Without fevers. Normal exam. She is a current smoker. Patient states that at this time her symptoms include: intermittent ear pain. Along with sinus pain and fatigue. Present for 1 month. Also complaining some neck/upper trapezius tenderness. Extensive allergies to antibiotics. She is using Nasacort. Also started to take a claritin. And using a neti-pot. Would like to be tested for COVID and mono. Past medical history, appointments, medications, allergies reviewed. EXAM: BP 123/72 Pulse 83 Temp 36.3 C (97.3 F) (Left Tympanic) Resp 18 Wt 58.5 kg (129 lb) SpO2 100% BMI 22.86 kg/m General Appearance: Well appearing, alert, in no acute distress, well-hydrated, well nourished.. Head: Normocephalic, no masses, lesions, tenderness or abnormalities. Eyes: Anicteric sclera. Pupils are equally round and reactive to light. Extraocular movements are intact. . Ears: External ears normal, canals clear. Nose/Sinuses: Nares normal, septum midline, mucosa normal, mild maxillary and front sinus tenderness. Oropharynx: Lips, mucosa, and tongue normal, teeth and gums normal, oropharynx normal. Neck: Supple, no adenopathy Lungs: Lungs clear to auscultation. No wheezing, rhonchi, rales.. Heart: RRR without murmur, gallop, or rubs. No ectopy. ASSESSMENT/PLAN: 1. Bacterial sinusitis - ICD9: 473.9, 041.9, ICD10: J32.9, B96.89 (primary diagnosis) - Will begin treatment with as per antibiotic as written, see orders - Supportive care with plenty of fluids, rest, and analgesia prn. - DOXYCYCLINE MONOHYDRATE 100 MG TABLET - PREDNISONE 20 MG TABLET 2. Fatigue, unspecified type - ICD9: 780.79, ICD10: R53.83 - Likely secondary to ongoing respiratory syndrome. But we can rule out other causes - CBC + DIFF - GRAYSON SILVERMAN PANEL - 2019 CORONAVIRUS 3. Sinus congestion - ICD9: 478.19, ICD10: R09.81 - see #2 - 2019 CORONAVIRUS Rob Cardenas APRN.CESARIO RTO as needed. This note was partly generated using [employer] voice recognition dictation and may contain some misspelled or inaccurate words missed on review. documented in this encounterHocking Valley [facility]02-27-2023 History of Present illness Narrative* Pepe Reyes MD - 08/29/2022 12:40 PM EST Chief Complaint Patient presents with: 6 Month Exam HPI Roman Kuhn is a 71 year old female who presents here today for 6 month follow up. She has a living will with DNR and believes her son is her POA. No chest pains, dizziness, or SOB. No bowel, Gi, or urinary issues. Uses Miralax BID. Thyroid: Taking Synthroid 100 mcg daily in the morning. No missed dosages. GERD: Sx controlled on Protonix 40 mg daily, Colestid 1 gram daily and Pepcid 20 mg daily. Lipid: Taking Pravastatin 40 mg daily at bedtime. Tries to watch diet but dating someone who likes to cook and go out to eat. She does walk his dog for exercise daily about 20 minutes. Complaining of drainage in the throat, scratchy throat, chest tightness, cough, shandra ear pain. No fevers. Has been using Albuterol inhaler and vicks at night to help. She did acupuncture for smoking cessation but that did not help. She is still smoking half ppd. Shestates she has seen on TV options for hypnotism and thinks she is going to try to look into that and see if it helps. She does not smoke in her home. Her boyfriend does not smoke. Thumb nail fungus: Has been taking Lamisil tablets for about 3 months. She is using some chilean on the nails to treat nail fungus. The nails seem to be growing out well and fungus is growing out of finger nails. Past medical history, appointments, medications, allergies reviewed. Previous Medical History PAST MEDICAL HISTORY Diagnosis Date Abdominal pain, epigastric Allergic rhinitis, cause unspecified Allergic rhinitis Esophageal reflux IBS (irritable bowel syndrome) constipation primarily Other and unspecified hyperlipidemia Unspecified hypothyroidism Previous Surgical History PAST SURGICAL HISTORY Procedure Laterality Date ABDOMINAL SURGERY HX BIOPSY BREAST OPEN INCISIONAL 08/14/2017 left stereotactic breast biopsy w/clip placement [facility] COLONOSCOPY FLX DX W/COLLJ SPEC WHEN PFRMD 12/18/2003 Colonoscopy COLONOSCOPY FLX DX W/COLLJ SPEC WHEN PFRMD 03/11/2008 Colonoscopy COLONOSCOPY FLX DX W/COLLJ SPEC WHEN PFRMD 07/19/2012 Colonoscopy COLONOSCOPY FLX DX W/COLLJ SPEC WHEN PFRMD 11/13/2018 Colonoscopy COSMETIC ASSESSMENT EGD 09/01/2020 ESOPHAGOGASTRODUODENOSCOPY TRANSORAL DIAGNOSTIC 03/12/2012 EGD ESOPHAGOGASTRODUODENOSCOPY TRANSORAL DIAGNOSTIC 11/13/2018 EGD EYE SURGERY HX LAPS SURG CHOLECYSTECTOMY W/CHOLANGIOGRAPHY 04/17/2012 Normal IOC PAST SURGICAL HISTORY OF hemmorhoidectomy PAST SURGICAL HISTORY OF 1969 ventral hernia repair - [place] - unknown for mesh PAST SURGICAL HISTORY OF age 27 partial hysterectomy PAST SURGICAL HISTORY OF 1998 benign breast bx PAST SURGICAL HISTORY OF 07/2002 lasik eye surgery PAST SURGICAL HISTORY OF 07/2006 recheck and enhancement on eye surgery PAST SURGICAL HISTORY OF Bilateral 2018 OD - 08/21, OS - 09/[address] Stock. Cataract implants RHINP PRIM LAT&ALAR CRTLGS&/ELVTN NASAL TI Rhinoplasty x 2 VAGINAL HYSTERECTOMY Family History FAMILY HISTORY Problem Relation Age of Onset Prostate Cancer Father Coronary Artery Disease Father late in life; enlarged heart; smoked Heart Mother valve, age 81 Colon Cancer Other none Diabetes Other none Patient Allergies ALLERGIES Allergen Reactions Ceclor [Cefaclor] ER for anaphylaxis Anaprin [Other] Avelox [Moxifloxaci* Intolerance Bactrim [Sulfametho* Unknown Insides were raging Biaxin [Clarithromy* Celexa [Citalopram * Unknown Chlorzinex [Other] Cipro [Ciprofloxaci* Entex [Phenylephrin* Erythromycin Fintex [Other] Levsinex [Hyoscyami* Lipitor [Atorvastat* Naldecon Senior Dx * Ornade [Other] Panelor [Other] Parafon Forte Dsc [* Paxil [Paroxetine H* Sporostac [Other] Sulfa (Sulfonamide * Other: See Comments Suprax [Cefixime] Urispas [Flavoxate * Voltaren [Diclofena* Current Medications Current Outpatient Medications on File Prior to Visit Medication Sig levothyroxine (SYNTHROID) 100 mcg tablet TAKE 1 TABLET BY MOUTH ONCE DAILY ON AN EMPTY STOMACH pantoprazole DR (PROTONIX) 40 mg tablet Take 1 tablet by mouth daily before breakfast. Take on empty stomach, 1/2 hr before meal. pravastatin (PRAVACHOL) 40 mg tablet Take 1 tablet by mouth once daily. colestipol (COLESTID) 1 gram tablet Take 1 tablet by mouth once daily. famotidine (PEPCID) 20 mg tablet Take 1 tablet by mouth once daily. terbinafine HCl (LAMISIL) 250 mg tablet Take 1 tablet by mouth once daily. albuterol HFA (VENTOLIN HFA) 90 mcg/actuation inhaler Inhale 2 Puffs as instructed every 6 hours asneeded for wheezing/shortness of breath. tretinoin (RETIN-A) 0.025 % topical cream Apply 1 application to affected area daily at bedtime. (Patient not taking: No sig reported) polyethylene glycol 3350 (MIRALAX, GLYCOLAX) 17 gram/dose powder Take 17 g by mouth twice daily. triamcinolone acetonide (NASACORT) 55 mcg nasal inhaler Use 2 Sprays in the nose once daily. aspirin(ECOTRIN LOW STRENGTH 81 MG TAB) Take one(1) tablet daily. ONE DAILY MULTI-VITAMIN TAB Take one(1) tablet daily. No current facility-administered medications on file prior to visit. Social History Social History Tobacco Use Smoking status: Every Day Packs/day: 0.50 Years: 45.00 Pack years: 22.50 Types: Cigarettes Smokeless tobacco: Never Vaping Use Vaping Use: Never used Substance Use Topics Alcohol use: Yes Comment: occasionally Drug use: No EXAM: BP 124/78 Pulse 96 Resp 16 Wt 58.9 kg (129 lb 14.4 oz) BMI 23.02 kg/m General Appearance: Well appearing, alert, in no acute distress, well-hydrated, well nourished.. Ears: External ears normal, canals clear. Neck: Supple, no adenopathy; thyroid symmetric, normal size. Lungs: Lungs clear to auscultation. No wheezing, rhonchi, rales.. Heart: RRR without murmur, gallop, or rubs. No ectopy. Fingers: nails show fungus is improving. Health Maintenance List LUNG CANCER SCREENING Never done SHINGRIX VACCINE(2 of 3) due on 08/08/2012 ADVANCE DIRECTIVE DISCUSSION Never done DEPRESSION ASSESSMENT Never done MAMMOGRAM due on 01/11/2023 ANNUAL PCP TEAM CHRONIC DISEASE VISIT due on 07/18/2023 DIABETES SCREEN due on 08/18/2025 LIPID SCREEN due on 08/18/2027 COLORECTAL CANCER SCREENING due on 11/13/2028 DTAP,TDAP,TD(3 - Td or Tdap) due on 12/13/2029 BONE DENSITY Completed INFLUENZA Completed HEPATITIS C SCREENING Completed COVID-19 VACCINE Completed PNEUMOCOCCAL: 65+ Completed Data reviewed Appointment on 08/18/2022 Component Date Value Protein, Total 08/18/2022 6.7 Albumin 08/18/2022 4.3 Calcium, Total 08/18/2022 9.7 Bilirubin, Total 08/18/2022 0.3 Alkaline Phosphatase 08/18/2022 72 AST 08/18/2022 27 ALT 08/18/2022 18 Glucose 08/18/2022 93 BUN 08/18/2022 13 Creatinine 08/18/2022 0.68 Sodium 08/18/2022 142 Potassium 08/18/2022 4.0 Chloride 08/18/2022 106 (A) CO2 08/18/2022 28 Anion Gap 08/18/2022 8 (A) Estimated Glomerular Adan* 08/18/2022 92 Cholesterol, Total 08/18/2022 211 (A) Triglyceride 08/18/2022 76 HDL Cholesterol 08/18/2022 71 Non HDL Cholesterol 08/18/2022 140 (A) Fasting Time 08/18/2022 12 VLDL Cholesterol 08/18/2022 15 TC:HDL Ratio 08/18/2022 2.97 LDL Cholesterol 08/18/2022 125 (A) LDL:HDL Ratio 08/18/2022 1.76 TSH 08/18/2022 6.660 (A) Hemoglobin A1C 08/18/2022 6.1 (A) Estimated Average Glucose 08/18/2022 128 ASSESSMENT/PLAN: 1. Hypothyroidism, unspecified type - ICD9: 244.9, ICD10: E03.9 (primary diagnosis) - Instructed patient on importance of taking on an empty stomach either first thing in the morning or at bedtime. - Increase Synthroid dose to 0.112 mg Stable 2. Hyperlipidemia, unspecified hyperlipidemia type - ICD9: 272.4, ICD10: E78.5 - good control - Continue current medication. - Encouraged following a low fat, low cholesterol diet. - Discussed the benefits of regular aerobic exercise and weight loss. 3. Gastroesophageal reflux disease, unspecified whether esophagitis present - ICD9: 530.81, ICD10: K21.9 Controlled Continue current medications. 4. Irritable bowel syndrome, unspecified type - ICD9: 564.1, ICD10: K58.9 Stable Continue current medications. 5. Elevated glucose - ICD9: 790.29, ICD10: R73.09 Recommend healthy diet and exercise Monitor with labs 6. Smoker - ICD9: 305.1, ICD10: F17.200 - Cessation encouraged. - Physiologic and physical aspects of tobacco addiction as well as strategies for quitting were discussed. - Counseling was given focusing on the harmful effects of this addiction especially given the patient's medical condition(s) which will be worsened because of the chemicals in tobacco. - Counseling was given 3-4 minutes. - pt will look into hypnosis Follow up in 6 months with fasting labs prior. I agree with the Chief Complaint, ROS, and Past Histories independently gathered by the clinical manager client support and the remaining scribed note accurately describes my personal service to the patient. Medical Decision Making: Problems: Moderate: 2+ stable chronic illnesses Data: Unique test result(s) reviewed: 3+ Unique test(s) ordered: 3+ Risk: Moderate: Drug management Medical Decision Making Level: 4 - Moderate Pepe Reyes MD The documentation for this note was completed by Aracely Pires Ma acting as scribe for Pepe Reyes MD. August 29, 2022 12:47 PM. Aracely Pires Ma documented in this encounterHocking Valley [facility]01-17-2023 Miscellaneous Notes* Telephone Encounter - Rob Cardenas APRN.CNP - 07/19/2022 12:20 PM EST Communicated xr knee findings of potential CPPD. Recommended continuing with ortho appointment for evaluation and treatment. Also discussed lumbar xray. She will continue with chiropractor visits. Rob Cardenas APRN.CNP documented in this encounterHocking Valley Community Hospital01-16-2023 History of Present illness Narrative* Violet Jimenes RT(R) - 07/18/2022 11:40 AM EST Radiology Service Progress Note PATIENT NAME: Roman Kuhn DATE OF SERVICE: July 18, 2022 TIME: 11:49 AM PATIENT IDENTITY VERIFICATION COMPLETED USING TWO (2) IDENTIFIERS: Name and Date of confirmedby patient verbally. FALL SCREENING: Has the patient had 2 falls in the last year or 1 fall with injury or currently using an Ambulatory Assistive Device (Walker, Cane, Wheelchair, Crutches, etc.)? No PATIENT GENDER DATA: Female. status: : No status: NO. PATIENT RELEVANT IMPLANT DATA REVIEWED: Not Applicable RADIOLOGY DEPARTMENT: General X-ray: Exam(s) Completed: Spine X-Ray(s): Lumbar AP / LAT / L5-S1 Lower Extremity X-Ray(s): Knee, AP / Lat / Tunne / Merchant Bilateral and Wt. Bearing PERIPHERAL IV DATA: Not applicable SIGNED BY: RT Jass(R) July 18, 2022 11:49 AM documented in this encounterHocking Valley [facility] Hospital01-13-2023 Miscellaneous Notes* Telephone Encounter - Elise Munoz - 07/15/2022 9:59 AM EST Patient is requesting to return to the services of Dr. Alejandra. Patient was last seen in 2019. Pleasenotify patient of his decision. documented in this encounterHocking Valley [facility] Hospital01-10-2023 History of Present illness Narrative* Rob Cardenas APRN.CANCER REGISTRAR - 07/12/2022 2:00 PM EST Chief Complaint Patient presents with: GERD: Flair up Medication Problem: Stopped taking terbinafine, gas and bowel movements bad odor HPI Roman Kuhn is a 71 year old female who presents here today for Above Complaints. follow up for GERD. Patient complains of: GERD flair up. She is on Famotidine and Protonix 40 mg daily. Admits that shebacked off of Famotidine and thus had a flair up. Now back on famotidine as prescribed and is feeling better. Was on terbinafine for nail fungus. Decided to stop on Monday because her stools were smelly, increased flatus. Also was wondering if her liver enzymes were checked. Past medical history, appointments, medications, allergies reviewed. EXAM: BP 130/82 Pulse 92 Resp 18 Wt 58.1 kg (128 lb) SpO2 98% BMI 22.68 kg/m General Appearance: Well appearing, alert, in no acute distress, well-hydrated, well nourished.. Lungs: Lungs clear to auscultation. No wheezing, rhonchi, rales.. Heart: RRR without murmur, gallop, or rubs. No ectopy. Abdomen: soft, nondistended, nontender, no hepatosplenomegaly or masses ASSESSMENT/PLAN: 1. Gastroesophageal reflux disease, unspecified whether esophagitis present - ICD9: 530.81, ICD10: K21.9 (primary diagnosis) - Continue treatment with Protonix 40 mg, Pepcid 20 mg daily. 2. Nail fungus - ICD9: 110.1, ICD10: B35.1 - Provided reassurance that liver enzymes were normal. No known cause of smelly stools. Rob Cardenas APRN.CNP RTO as needed This note was partly generated using [employer] voice recognition dictation and may contain some misspelled or inaccurate words missed on review. documented in this encounterHocking [facility]01-09-2023 Miscellaneous Notes* Telephone Encounter - Rob Cardenas APRN.CNP - 07/11/2022 9:12 AM EST The following approved medication requests have been transmitted electronically. Requested Prescriptions Pending Prescriptions Disp Refills colestipol (COLESTID) 1 gram tablet 90 tablet 3 Sig: Take 1 tablet by mouth once daily. famotidine (PEPCID) 20 mg tablet 90 tablet 1 Sig: Take 1 tablet by mouth once daily. Rob Cardenas APRN.CNP * Telephone Encounter - Corina Cloud LPN - 07/11/2022 8:24 AM EST Patient has been identified by name and date of : Patient phones for refill(s): Requested Prescriptions Pending Prescriptions Disp Refills colestipol (COLESTID) 1 gram tablet 90 tablet 3 Sig: Take 1 tablet by mouth once daily. famotidine (PEPCID) 20 mg tablet 90 tablet 1 Sig: Take 1 tablet by mouth once daily. Date of last office visit in primary care: 02/21/2022, has appt 08/29/2022 Last 2 Encounter Wt Readings: Date: Wt: 06/21/2022 59.8 kg (131 lb 12.8 oz) 02/21/2022 57.3 kg (126 lb 6.4 oz) Previous labs/tests for medication: Not applicable Please advise. Thank you. Corina Cloud LPN documented in this encounterHocking Valley [facility]12-21-2022 Miscellaneous Notes* Telephone Encounter - Ute Aguilar - 06/22/2022 8:13 AM EST Patient given results and verbalized understanding of instructions given. Ute Aguilar * Telephone Encounter - Jina Ruiz APRN.CNP - 06/22/2022 7:34 AM EST COVID negative. Influenza negative. Continue current treatment plan discussed at time of exam. Follow up with primary care doctor for continued symptoms and or as needed. documented in this encounterHocking Valley [facility]12-20-2022 History of Present illness Narrative* Kiley Chang APRN.CESARIO - 06/21/2022 8:08 AM EST Subjective HPI Roman presents today with 10 days hx of sinus tenderness, ears and face pressure, last night started feeling sligtly dizzy with quick movement, she is a smoker but has been coughing more then her normal, occasionally coughing up mucus, no fever, states no sick contacts noted Blood pressure 120/78, pulse 91, temperature 36.8 C (98.2 F), temperature source Tympanic, resp. rate 18, weight 59.8 kg (131 lb 12.8 oz), SpO2 97 %. PAST MEDICAL HISTORY Diagnosis Date Abdominal pain, epigastric Allergic rhinitis, cause unspecified Allergic rhinitis Esophageal reflux IBS (irritable bowel syndrome) constipation primarily Other and unspecified hyperlipidemia Unspecified hypothyroidism PAST SURGICAL HISTORY Procedure Laterality Date ABDOMINAL SURGERY HX BIOPSY BREAST OPEN INCISIONAL 08/14/2017 left stereotactic breast biopsy w/clip placement [facility] COLONOSCOPY FLX DX W/COLLJ SPEC WHEN PFRMD 12/18/2003 Colonoscopy COLONOSCOPY FLX DX W/COLLJ SPEC WHEN PFRMD 03/11/2008 Colonoscopy COLONOSCOPY FLX DX W/COLLJ SPEC WHEN PFRMD 07/19/2012 Colonoscopy COLONOSCOPY FLX DX W/COLLJ SPEC WHEN PFRMD 11/13/2018 Colonoscopy COSMETIC ASSESSMENT EGD 09/01/2020 ESOPHAGOGASTRODUODENOSCOPY TRANSORAL DIAGNOSTIC 03/12/2012 EGD ESOPHAGOGASTRODUODENOSCOPY TRANSORAL DIAGNOSTIC 11/13/2018 EGD EYE SURGERY HX LAPS SURG CHOLECYSTECTOMY W/CHOLANGIOGRAPHY 04/17/2012 Normal IOC PAST SURGICAL HISTORY OF hemmorhoidectomy PAST SURGICAL HISTORY OF 1969 ventral hernia repair - [place] - unknown for mesh PAST SURGICAL HISTORY OF age 27 partial hysterectomy PAST SURGICAL HISTORY OF 1998 benign breast bx PAST SURGICAL HISTORY OF 07/2002 lasik eye surgery PAST SURGICAL HISTORY OF 07/2006 recheck and enhancement on eye surgery PAST SURGICAL HISTORY OF Bilateral 2018 OD - 08/21, OS - 09/[address] Stock. Cataract implants RHINP PRIM LAT&ALAR CRTLGS&/ELVTN NASAL TI Rhinoplasty x 2 VAGINAL HYSTERECTOMY ALLERGIES Ceclor [Cefaclor], Anaprin [Other], Avelox [Moxifloxacin Hcl], Bactrim [Sulfamethoxazole], Biaxin [Clarithromycin], Celexa [Citalopram Hydrobromide], Chlorzinex [Other], Cipro [Ciprofloxacin], Entex [Phenylephrine-Guaifenesin], Erythromycin, Fintex [Other], Levsinex [Hyoscyamine Sulfate],Lipitor [Atorvastatin Calcium], Naldecon Senior Dx [Dextromethorphan-Guaifenesin], Ornade [Other], Panelor [Other], Parafon Forte Dsc [Chlorzoxazone], Paxil [Paroxetine Hcl], Sporostac [Other], Sulfa(Sulfonamide Antibiotics), Suprax [Cefixime], Urispas [Flavoxate Hcl], and Voltaren [Diclofenac Sodium] MEDICATIONS famotidine (PEPCID) 20 mg tablet Take 1 tablet by mouth once daily. albuterol HFA (VENTOLIN HFA) 90 mcg/actuation inhaler Inhale 2 Puffs as instructed every 6 hours asneeded for wheezing/shortness of breath. pravastatin (PRAVACHOL) 40 mg tablet Take 1 tablet by mouth once daily. pantoprazole DR (PROTONIX) 40 mg tablet Take 1 tablet by mouth daily before breakfast. Take on empty stomach, 1/2 hr before meal. levothyroxine (SYNTHROID) 100 mcg tablet TAKE 1 TABLET BY MOUTH ONCE DAILY ON AN EMPTY STOMACH colestipol (COLESTID) 1 gram tablet Take 1 tablet by mouth once daily. polyethylene glycol 3350 (MIRALAX, GLYCOLAX) 17 gram/dose powder Take 17 g by mouth twice daily. triamcinolone acetonide (NASACORT) 55 mcg nasal inhaler Use 2 Sprays in the nose once daily. aspirin(ECOTRIN LOW STRENGTH 81 MG TAB) Take one(1) tablet daily. ONE DAILY MULTI-VITAMIN TAB Take one(1) tablet daily. doxycycline (VIBRA-TABS) 100 mg tablet Take 1 tablet by mouth twice daily for 10 days. terbinafine HCl (LAMISIL) 250 mg tablet Take 1 tablet by mouth once daily. tretinoin (RETIN-A) 0.025 % topical cream Apply 1 application to affected area daily at bedtime. (Patient not taking: Reported on 06/01/2021 ) FAMILY HISTORY Problem Relation Age of Onset Prostate Cancer Father Coronary Artery Disease Father late in life; enlarged heart; smoked Heart Mother valve, age 81 Colon Cancer Other none Diabetes Other none Social History Tobacco Use Smoking status: Every Day Packs/day: 0.50 Years: 45.00 Pack years: 22.50 Types: Cigarettes Smokeless tobacco: Never Vaping Use Vaping Use: Never used Substance Use Topics Alcohol use: Yes Comment: occasionally Drug use: No Review of Systems HENT: Positive for congestion and sinus pain. Respiratory: Positive for cough. All other systems reviewed and are negative. Objective Physical Exam Constitutional: Appearance: Normal appearance. HENT: Head: Normocephalic and atraumatic. Right Ear: Tympanic membrane normal. Left Ear: Tympanic membrane normal. Ears: Comments: Slight fluid noted bilateral Nose: Congestion present. Mouth/Throat: Mouth: Mucous membranes are moist. Pharynx: No oropharyngeal exudate or posterior oropharyngeal erythema. Eyes: Extraocular Movements: Extraocular movements intact. Pupils: Pupils are equal, round, and reactive to light. Cardiovascular: Rate and Rhythm: Normal rate and regular rhythm. Pulses: Normal pulses. Heart sounds: Normal heart sounds. No murmur heard. Pulmonary: Effort: Pulmonary effort is normal. No respiratory distress. Breath sounds: Normal breath sounds. No stridor. No wheezing, rhonchi or rales. Chest: Chest wall: No tenderness. Abdominal: General: Abdomen is flat. Palpations: Abdomen is soft. Musculoskeletal: Cervical back: Normal range of motion and neck supple. Lymphadenopathy: Cervical: No cervical adenopathy. Skin: General: Skin is warm and dry. Neurological: Mental Status: She is alert. Psychiatric: Mood and Affect: Mood normal. ASSESSMENT/PLAN: 1. Bacterial sinusitis - ICD9: 473.9, 041.9, ICD10: J32.9, B96.89 - Will begin treatment with Doxycycline Increase fluids Using musinex Using netipot Rest Follow up if not improving Kiley Chang APRN.CANCER REGISTRAR documented in this encounterHocking [facility]09-06-2022 Miscellaneous Notes* Telephone Encounter - Becky Perla Pss - 03/08/2022 9:27 AM EDT Patient has been identified by name and date of : Yes Last office visit in this department: 06/01/2021 RX INSTRUCTIONS: Patient aware RX will be sent to pharmacy. No need to notify patient. Patient phones requesting refills as follows: Requested Prescriptions Pending Prescriptions Disp Refills famotidine (PEPCID) 20 mg tablet 30 tablet 2 Sig: Take 1 tablet by mouth once daily. Please review and advise. Becky Perla Pss documented in this encounterHocking Valley [facility]08-22-2022 History of Present illness Narrative* Pepe Reyes MD - 02/21/2022 2:00 PM EDT Chief Complaint Patient presents with: F/U 6 Month HPI Roman Kuhn is a 71 year old female who presents here today for 6 month follow up. Continued smoker, half ppd. No bowel, Gi, or urinary issues. Uses Colestid 1 g daily, Benefiber daily and Miralax daily to keepbowels regular, hx of IBS. Reports that her bowels are doing great. Follows with [facility]. Gastritis: Taking Protonix 40 mg daily and Pepcid 20 mg daily. Thyroid: Taking Synthroid 100 mcg daily. No missed dosages. Lipid/glucose: Not watching diet. Exercising some, by running around. Has been busy working out in the yard that keeps her very busy. Has been walking her boyfriends dog daily ([employer]) for 20 minutes. Taking Pravastatin 40 mg daily. Fungus - Started last April on her left thumb. States that she was using Kerasel and was improving, growing out but seems to have stalled. Wants to know what can be done with this. HM - Declines depression symptoms. Has Adv Dir/Living Will. Discussed contacting insurance regarding Shingles. Past medical history, appointments, medications, allergies reviewed. Previous Medical History PAST MEDICAL HISTORY Diagnosis Date Abdominal pain, epigastric Allergic rhinitis, cause unspecified Allergic rhinitis Esophageal reflux IBS (irritable bowel syndrome) constipation primarily Other and unspecified hyperlipidemia Unspecified hypothyroidism Previous Surgical History PAST SURGICAL HISTORY Procedure Laterality Date ABDOMINAL SURGERY HX BIOPSY BREAST OPEN INCISIONAL 08/14/2017 left stereotactic breast biopsy w/clip placement [facility] COLONOSCOPY FLX DX W/COLLJ SPEC WHEN PFRMD 12/18/2003 Colonoscopy COLONOSCOPY FLX DX W/COLLJ SPEC WHEN PFRMD 03/11/2008 Colonoscopy COLONOSCOPY FLX DX W/COLLJ SPEC WHEN PFRMD 07/19/2012 Colonoscopy COLONOSCOPY FLX DX W/COLLJ SPEC WHEN PFRMD 11/13/2018 Colonoscopy COSMETIC ASSESSMENT EGD 09/01/2020 ESOPHAGOGASTRODUODENOSCOPY TRANSORAL DIAGNOSTIC 03/12/2012 EGD ESOPHAGOGASTRODUODENOSCOPY TRANSORAL DIAGNOSTIC 11/13/2018 EGD EYE SURGERY HX LAPS SURG CHOLECYSTECTOMY W/CHOLANGIOGRAPHY 04/17/2012 Normal IOC PAST SURGICAL HISTORY OF hemmorhoidectomy PAST SURGICAL HISTORY OF 1969 ventral hernia repair - [place] - unknown for mesh PAST SURGICAL HISTORY OF age 27 partial hysterectomy PAST SURGICAL HISTORY OF 1998 benign breast bx PAST SURGICAL HISTORY OF 07/2002 lasik eye surgery PAST SURGICAL HISTORY OF 07/2006 recheck and enhancement on eye surgery PAST SURGICAL HISTORY OF Bilateral 2019 OD - 08/21, OS - 09/[address] Stock. Cataract implants RHINP PRIM LAT&ALAR CRTLGS&/ELVTN NASAL TI Rhinoplasty x 2 VAGINAL HYSTERECTOMY Family History FAMILY HISTORY Problem Relation Age of Onset Prostate Cancer Father Coronary Artery Disease Father late in life; enlarged heart; smoked Heart Mother valve, age 81 Colon Cancer Other none Diabetes Other none Patient Allergies ALLERGIES Allergen Reactions Ceclor [Cefaclor] ER for anaphylaxis Anaprin [Other] Avelox [Moxifloxaci* Intolerance Bactrim [Sulfametho* Unknown Insides were raging Biaxin [Clarithromy* Celexa [Citalopram * Unknown Chlorzinex [Other] Cipro [Ciprofloxaci* Entex [Phenylephrin* Erythromycin Fintex [Other] Levsinex [Hyoscyami* Lipitor [Atorvastat* Naldecon Senior Dx * Ornade [Other] Panelor [Other] Parafon Forte Dsc [* Paxil [Paroxetine H* Sporostac [Other] Sulfa (Sulfonamide * Other: See Comments Suprax [Cefixime] Urispas [Flavoxate * Voltaren [Diclofena* Current Medications Current Outpatient Medications on File Prior to Visit Medication Sig famotidine (PEPCID) 20 mg tablet Take 1 tablet by mouth once daily. albuterol HFA (VENTOLIN HFA) 90 mcg/actuation inhaler Inhale 2 Puffs as instructed every 6 hours asneeded for wheezing/shortness of breath. pravastatin (PRAVACHOL) 40 mg tablet Take 1 tablet by mouth once daily. pantoprazole DR (PROTONIX) 40 mg tablet Take 1 tablet by mouth daily before breakfast. Take on empty stomach, 1/2 hr before meal. levothyroxine (SYNTHROID) 100 mcg tablet TAKE 1 TABLET BY MOUTH ONCE DAILY ON AN EMPTY STOMACH colestipol (COLESTID) 1 gram tablet Take 1 tablet by mouth once daily. tretinoin (RETIN-A) 0.025 % topical cream Apply 1 application to affected area daily at bedtime. (Patient not taking: Reported on 06/01/2021 ) polyethylene glycol 3350 (MIRALAX, GLYCOLAX) 17 gram/dose powder Take 17 g by mouth twice daily. triamcinolone acetonide (NASACORT) 55 mcg nasal inhaler Use 2 Sprays in the nose once daily. aspirin(ECOTRIN LOW STRENGTH 81 MG TAB) Take one(1) tablet daily. ONE DAILY MULTI-VITAMIN TAB Take one(1) tablet daily. No current facility-administered medications on file prior to visit. Social History Social History Tobacco Use Smoking status: Every Day Packs/day: 0.50 Years: 45.00 Pack years: 22.50 Types: Cigarettes Smokeless tobacco: Never Vaping Use Vaping Use: Never used Substance Use Topics Alcohol use: Yes Comment: occasionally Drug use: No EXAM: BP 116/70 (BP Site: Left Arm, BP Position: Sitting, BP Cuff Size: Regular Adult) Pulse 80 Resp 16 Wt 57.3 kg (126 lb 6.4 oz) BMI 22.40 kg/m General Appearance: Well appearing, alert, in no acute distress, well-hydrated, well nourished.. Neck: Supple, no adenopathy; thyroid symmetric, normal size, no bruits. Lungs: Lungs clear to auscultation. No wheezing, rhonchi, rales.. Heart: RRR without murmur, gallop, or rubs. No ectopy. Nail: L thumb evaluated, thickening along lateral aspect. Health Maintenance List LUNG CANCER SCREENING Never done SHINGRIX VACCINE(2 of 3) due on 08/08/2012 DEPRESSION SCREENING due on 05/29/2018 ADVANCE DIRECTIVE DISCUSSION Never done COVID-19 VACCINE(4 - Booster for Pfizer series) due on 08/22/2021 INFLUENZA(1) due on 03/03/2022 ANNUAL PCP TEAM CHRONIC DISEASE VISIT due on 10/11/2022 MAMMOGRAM due on 01/11/2023 DIABETES SCREEN due on 08/09/2024 LIPID SCREEN due on 08/09/2026 COLORECTAL CANCER SCREENING due on 11/13/2028 DTAP,TDAP,TD(3 - Td or Tdap) due on 12/13/2029 BONE DENSITY Completed HEPATITIS C SCREENING Completed PNEUMOCOCCAL: 65+ Completed Data reviewed Appointment on 02/14/2022 Component Date Value Protein, Total 02/14/2022 6.6 Albumin 02/14/2022 4.2 Calcium, Total 02/14/2022 10.0 Bilirubin, Total 02/14/2022 0.3 Alkaline Phosphatase 02/14/2022 69 AST 02/14/2022 34 ALT 02/14/2022 21 Glucose 02/14/2022 103 (A) BUN 02/14/2022 11 Creatinine 02/14/2022 0.67 Sodium 02/14/2022 142 Potassium 02/14/2022 4.3 Chloride 02/14/2022 105 CO2 02/14/2022 28 Anion Gap 02/14/2022 9 Estimated Glomerular Adan* 02/14/2022 92 Cholesterol, Total 02/14/2022 196 Triglyceride 02/14/2022 88 HDL Cholesterol 02/14/2022 62 Non HDL Cholesterol 02/14/2022 134 (A) Fasting Time 02/14/2022 12 VLDL Cholesterol 02/14/2022 18 TC:HDL Ratio 02/14/2022 3.16 LDL Cholesterol 02/14/2022 116 (A) LDL:HDL Ratio 02/14/2022 1.87 TSH 02/14/2022 2.420 Hemoglobin A1C 02/14/2022 6.0 (A) Estimated Average Glucose 02/14/2022 126 ASSESSMENT/PLAN: 1. Hypothyroidism, unspecified type - ICD9: 244.9, ICD10: E03.9 (primary diagnosis) - Instructed patient on importance of taking on an empty stomach either first thing in the morning or at bedtime. Stable - Continue current medications 2. Hyperlipidemia, unspecified hyperlipidemia type - ICD9: 272.4, ICD10: E78.5 - good control - Continue current medication. - Encouraged following a low fat, low cholesterol diet. - Discussed the benefits of regular aerobic exercise and weight loss. 3. Elevated glucose - ICD9: 790.29, ICD10: R73.09 - Stable without use of medication. - Diet/Exercise 4. Irritable bowel syndrome, unspecified type - ICD9: 564.1, ICD10: K58.9 - Stable - Continue current medication regimen. 5. Gastroesophageal reflux disease, unspecified whether esophagitis present - ICD9: 530.81, ICD10: K21.9 - Continue current medication regimen. 6. Nail fungus - ICD9: 110.1, ICD10: B35.1 - Trial Lamisil for 3 months. - To update office if causing GI upset. 6 month follow up with labs I agree with the Chief Complaint, ROS, and Past Histories independently gathered by the clinical manager client support and the remaining scribed note accurately describes my personal service to the patient. Medical Decision Making: Problems: Moderate: 2+ stable chronic illnesses Data: Unique test result(s) reviewed: 3+ Unique test(s) ordered: 3+ Risk: Moderate: Drug management Medical Decision Making Level: 4 - Moderate Pepe Reyes MD The documentation for this note was completed by Julieta Mohan Ma acting as scribe for Pepe Reyes MD. February 21, 2022 2:05 PM. Julieta Mohan Ma documented in this encounterHocking Valley [facility]06-21-2022 Miscellaneous Notes* Telephone Encounter - Rob Cardenas APRN.CNP - 12/21/2021 12:14 PM EDT Order filed. Rob Cardenas APRN.CNP * Telephone Encounter - RT Sam(R) - 12/21/2021 8:26 AM EDT Pt is in need of a Bilateral Diagnostic Mammogram order, last screening was 09/04/20, follow up for left will be down at the same time. Thank you, Octavia Morrell documented in this encounterHocking Valley [facility] Hospital05-11-2022 Miscellaneous Notes* Telephone Encounter - Pepe Reyes MD - 11/10/2021 4:34 PM EDT Orders filed Pepe Reyes MD * Telephone Encounter - Rach Linareso Tech - 11/10/2021 1:24 PM EDT Please put in an order for a Call back diagnostic left breast with ultrasound Pt did not follow up.Please call her when orders are in then she will call and schedule an appt with us on Tuesdays or Wednesdays we are booked out till December 15. thank you documented in this encounterHocking Valley [facility]05-09-2022 History of Present illness Narrative* Amanda Downey MA - 11/08/2021 12:57 PM EDT POPULATION HEALTH NAVIGATION OUTREACH Action/FYI Pt currently due to complete care gaps. According to the pt's chart, she is only needing to schedule a mammogram. Order has already been placed and the pt already has an appt scheduled with her PCP. Called and spoke with the pt -was able to get her mammogram scheduled tomorrow. Pt identified by name and : YES, via phone Outreach Outcome/Action Spoke to patient or caregiver: Patient scheduled Reason for Outreach Care Gap or Scheduling/Wellness visits Payer: Payor: [employer] MEDICARE / Plan: [employer] / Product Type: HMO / Care Gap Reviewed:: Breast Cancer screening Reminder: Reminder note to check Health Maintenance for items below Health Maintenance items due: LUNG CANCER SCREENING Never done SHINGRIX VACCINE(2 of 3) due on 08/08/2012 DEPRESSION SCREENING due on 05/29/2018 ADVANCE DIRECTIVE DISCUSSION Never done COVID-19 VACCINE(4 - Booster for Pfizer series) due on 08/22/2021 MAMMOGRAM due on 09/04/2021 Message Sent to Practice: No Navigation Signature: Amanda Downey MA November 08, 2021 12:58 PM documented in this encounterHocking Valley [facility] Hospital05-06-2022 Miscellaneous Notes* Telephone Encounter - Dahlia Townsend RN - 11/05/2021 10:05 AM EDT Phoned patient and given provider's message below with verbalized understanding. * Telephone Encounter - Rob Cardenas APRN.CNP - 11/05/2021 7:27 AM EDT Please inform patient that her spirometry is normal. No evidence of lung disease. Rob Cardenas APRN.CNP documented in this encounterHocking Valley [facility] Hospital05-04-2022 History of Present illness Narrative* Carla Lynch RRT - 11/03/2021 10:21 AM EDT PULM FUNCTION SMARTBLOCK: Provider: Rob Cardenas APRN.CNP Spirometry w/BD: 1 System: [id number] documented in this encounterHocking Valley Community Hospital04-11-2022 Miscellaneous Notes* Telephone Encounter - Virginia Christianson Ma - 10/11/2021 10:04 AM EDT Pt notified. * Telephone Encounter - Rob Cardenas APRN.CNP - 10/11/2021 10:01 AM EDT Please inform patient that her chest xray was normal. Continue with treatment plan as discussed in our visit today. Rob Cardenas APRN.CNP documented in this encounterHocking Valley Community Hospital04-11-2022 History of Present illness Narrative* Violet Jimenes, RT(R) - 10/11/2021 9:10 AM EDT Radiology Service Progress Note PATIENT NAME: Roman Kuhn DATE OF SERVICE: October 11, 2021 TIME: 9:04 AM PATIENT IDENTITY VERIFICATION COMPLETED USING TWO (2) IDENTIFIERS: Name and Date of confirmedby patient verbally. FALL SCREENING: Has the patient had 2 falls in the last year or 1 fall with injury or currently using an Ambulatory Assistive Device (Walker, Cane, Wheelchair, Crutches, etc.)? No PATIENT GENDER DATA: Female. status: : No status: NO. PATIENT RELEVANT IMPLANT DATA REVIEWED: Not Applicable RADIOLOGY DEPARTMENT: General X-ray: Exam(s) Completed: Chest X-Ray PERIPHERAL IV DATA: Not applicable SIGNED BY: RT Jass(R) October 11, 2021 9:04 AM documented in this encounterHocking Valley Community Hospital04-11-2022 History of Present illness Narrative* Rob Cardenas, FRANCISCO.CANCER REGISTRAR - 10/11/2021 9:00 AM EDT Chief Complaint Patient presents with: Cough Nasal Congestion HPI Roman Kuhn is a 70 year old female who presents here today for Above Complaints.. ENT: Patient complains of sinus pressure, congestion, cough Duration: Intermittently for one month. Within the past 1 week, has noticed a worsening symptoms Fever: No. Headache: Intermittent, goes away easily. Sore throat: No. Ear pain: No. Nasal drainage: Yes. Cough: Yes with wheezing. Shortness of breath: Slightly. Nausea: No. Vomiting: No. Diarrhea: No. Previous treatment: Yes, mucinex (not daily), vicks. She is a current smoker, about 0.5 PPD. She has received her COVID vaccines with booster. Has an inhaler from last viral uri, which helps. No history of chronic lung disease. Past medical history, appointments, medications, allergies reviewed. Previous Medical History PAST MEDICAL HISTORY Diagnosis Date Abdominal pain, epigastric Allergic rhinitis, cause unspecified Allergic rhinitis Esophageal reflux IBS (irritable bowel syndrome) constipation primarily Other and unspecified hyperlipidemia Unspecified hypothyroidism Previous Surgical History PAST SURGICAL HISTORY Procedure Laterality Date ABDOMINAL SURGERY HX BIOPSY BREAST OPEN INCISIONAL 08/14/2017 left stereotactic breast biopsy w/clip placement [facility] COLONOSCOPY FLX DX W/COLLJ SPEC WHEN PFRMD 12/18/2003 Colonoscopy COLONOSCOPY FLX DX W/COLLJ SPEC WHEN PFRMD 03/11/2008 Colonoscopy COLONOSCOPY FLX DX W/COLLJ SPEC WHEN PFRMD 07/19/2012 Colonoscopy COLONOSCOPY FLX DX W/COLLJ SPEC WHEN PFRMD 11/13/2018 Colonoscopy COSMETIC ASSESSMENT EGD 09/01/2020 ESOPHAGOGASTRODUODENOSCOPY TRANSORAL DIAGNOSTIC 03/12/2012 EGD ESOPHAGOGASTRODUODENOSCOPY TRANSORAL DIAGNOSTIC 11/13/2018 EGD EYE SURGERY HX LAPS SURG CHOLECYSTECTOMY W/CHOLANGIOGRAPHY 04/17/2012 Normal IOC PAST SURGICAL HISTORY OF hemmorhoidectomy PAST SURGICAL HISTORY OF 1969 ventral hernia repair - [place] - unknown for mesh PAST SURGICAL HISTORY OF age 27 partial hysterectomy PAST SURGICAL HISTORY OF 1998 benign breast bx PAST SURGICAL HISTORY OF 07/2002 lasik eye surgery PAST SURGICAL HISTORY OF 07/2006 recheck and enhancement on eye surgery PAST SURGICAL HISTORY OF Bilateral 2018 OD - 08/21, OS - 09/[address] Stock. Cataract implants RHINP PRIM LAT&ALAR CRTLGS&/ELVTN NASAL TI Rhinoplasty x 2 VAGINAL HYSTERECTOMY Family History FAMILY HISTORY Problem Relation Age of Onset Prostate Cancer Father Coronary Artery Disease Father late in life; enlarged heart; smoked Heart Mother valve, age 81 Colon Cancer Other none Diabetes Other none Patient Allergies ALLERGIES Allergen Reactions Ceclor [Cefaclor] ER for anaphylaxis Anaprin [Other] Avelox [Moxifloxaci* Intolerance Bactrim [Sulfametho* Unknown Insides were raging Biaxin [Clarithromy* Celexa [Citalopram * Unknown Chlorzinex [Other] Cipro [Ciprofloxaci* Entex [Phenylephrin* Erythromycin Fintex [Other] Levsinex [Hyoscyami* Lipitor [Atorvastat* Naldecon Senior Dx * Ornade [Other] Panelor [Other] Parafon Forte Dsc [* Paxil [Paroxetine H* Sporostac [Other] Sulfa (Sulfonamide * Other: See Comments Suprax [Cefixime] Urispas [Flavoxate * Voltaren [Diclofena* Current Medications Current Outpatient Medications on File Prior to Visit Medication Sig pravastatin (PRAVACHOL) 40 mg tablet Take 1 tablet by mouth once daily. pantoprazole DR (PROTONIX) 40 mg tablet Take 1 tablet by mouth daily before breakfast. Take on empty stomach, 1/2 hr before meal. levothyroxine (SYNTHROID) 100 mcg tablet TAKE 1 TABLET BY MOUTH ONCE DAILY ON AN EMPTY STOMACH colestipol (COLESTID) 1 gram tablet Take 1 tablet by mouth once daily. famotidine (PEPCID) 20 mg tablet Take 1 tablet by mouth once daily. tretinoin (RETIN-A) 0.025 % topical cream Apply 1 application to affected area daily at bedtime. (Patient not taking: Reported on 06/01/2021 ) albuterol HFA (VENTOLIN HFA) 90 mcg/actuation inhaler Inhale 2 Puffs as instructed every 6 hours asneeded for Wheezing/Shortness of Breath. polyethylene glycol 3350 (MIRALAX, GLYCOLAX) 17 gram/dose powder Take 17 g by mouth twice daily. triamcinolone acetonide (NASACORT) 55 mcg nasal inhaler Use 2 Sprays in the nose once daily. aspirin(ECOTRIN LOW STRENGTH 81 MG TAB) Take one(1) tablet daily. ONE DAILY MULTI-VITAMIN TAB Take one(1) tablet daily. No current facility-administered medications on file prior to visit. Social History Social History Tobacco Use Smoking status: Current Every Day Smoker Packs/day: 0.50 Years: 45.00 Pack years: 22.50 Types: Cigarettes Smokeless tobacco: Never Used Vaping Use Vaping Use: Never used Substance Use Topics Alcohol use: Yes Comment: occasionally Drug use: No REVIEW OF SYSTEMS: as above Reviewed relevant PMHx, PSHx, Social Hx, current medications and allergies. EXAM: BP 112/80 Pulse 96 Temp 36.6 C (97.8 F) (Left Tympanic) Resp 16 Wt 56.7 kg (125 lb) SpO2 99% BMI 22.15 kg/m General Appearance: Well appearing, alert, in no acute distress, well-hydrated, well nourished.. Nose/Sinuses: Nares normal, septum midline, mucosa normal, no drainage or sinus tenderness. Oropharynx: Lips, mucosa, and tongue normal, teeth and gums normal, oropharynx normal. Lungs: Positive findings: rhonchi that clears with cough; Cough. Heart: RRR without murmur, gallop, or rubs. No ectopy. Health Maintenance List SHINGRIX VACCINE(2 of 3) due on 08/08/2012 DEPRESSION SCREENING due on 05/29/2018 ADVANCE DIRECTIVE DISCUSSION Never done MAMMOGRAM due on 09/04/2021 ANNUAL PCP TEAM CHRONIC DISEASE VISIT due on 08/23/2022 DIABETES SCREEN due on 08/09/2024 LIPID SCREEN due on 08/09/2026 COLORECTAL CANCER SCREENING due on 11/13/2028 DTAP,TDAP,TD(3 - Td or Tdap) due on 12/13/2029 BONE DENSITY Completed INFLUENZA Completed HEPATITIS C SCREENING Completed PNEUMOVAX AGE 65 AND OVER WITH 5YR LOOKBACK Completed COVID-19 VACCINE Completed MENINGOCOCCAL CONJUGATE Aged Out ASSESSMENT/PLAN: 1. Sinobronchitis - ICD9: 473.9, 490, ICD10: J32.9, J40 (primary diagnosis) - Will begin treatment with Doxycycline - The patient should also be given prednisone for the first 5 days of treatment. - Follow up in 3-5 days if symptoms persist or worsen. - PREDNISONE 20 MG TABLET - DOXYCYCLINE HYCLATE 100 MG TABLET - XR CHEST 2V FRONTAL/LAT 2. Viral URI - ICD9: 465.9, ICD10: J06.9 - XR CHEST 2V FRONTAL/LAT - ALBUTEROL SULFATE HFA 90 MCG/ACTUATION AEROSOL INHALER 3. Cough - ICD9: 786.2, ICD10: R05.9 - Persistent cough. Given history of smoking. We should rule out spirometry after current episode has resolved. Ask patient to schedule for 2 weeks from now - SPIROMETRY - BASELINE AND POST DILATOR Rob Cardenas APRN.CNP This note was partly generated using [employer] voice recognition dictation and may contain some misspelled or inaccurate words missed on review. [facility] Inst[facility]* Patient Instructions* Rob Cardenas APRN.CNP - 10/11/2021 8:53 AM EDT 1. Get chest xray 2. Start antibiotic and prednisone 3. Get spirometry in 2 weeks after you are feeling better. Rob Cardenas APRN.CNP documented in this encounterH[facility] History of Present illness Narrative* Ezra Goldberg (Rt), Tech - 08/22/2020 12:00 PM EST Radiology Service Progress Note PATIENT NAME: Roman Kuhn DATE OF SERVICE: August 22, 2020 TIME: 12:14 PM PATIENT IDENTITY VERIFICATION COMPLETED USING TWO (2) IDENTIFIERS: Name and Date of confirmedby patient verbally. FALL SCREENING: Has the patient had 2 falls in the last year or 1 fall with injury or currently using an Ambulatory Assistive Device (Walker, Cane, Wheelchair, Crutches, etc.)? No PATIENT GENDER DATA: Female. status: : No status: NO. PATIENT RELEVANT IMPLANT DATA REVIEWED: Not Applicable RADIOLOGY DEPARTMENT: General X-ray: Exam(s) Completed: Chest X-Ray PERIPHERAL IV DATA: Not applicable SIGNED BY: RT Valente August 22, 2020 12:14 PM documented in this encounterH[facility] History of Past illness Narrative* Problem Noted Date Resolved Date Abdominal pain, left lower quadrant 03/11/2008 09/02/2009 Diarrhea 03/11/2008 09/02/2009 Abdominal pain, generalized 12/19/200708/2009 Unspecified constipation 010 documented as of this encounter (statuses as of 10/11/2021) [facility] of Past illness Narrative* Problem Noted Date Resolved Date Abdominal pain, left lower quadrant 03/11/2008 09/02/2009 Diarrhea 03/11/2008 09/02/2009 Abdominal pain, generalized 12/19/20070 08/2009 Unspecified constipation 010 documented as of this encounter (statuses as of 10/11/2021) [facility] illness Narrative* Problem Noted Date Resolved Date Abdominal pain, left lower quadrant 03/11/2008 09/02/2009 Diarrhea 03/11/2008 09/02/2009 Abdominal pain, generalized 12/19/2007 030 08/2009 Unspecified constipation 010 documented as of this encounter (statuses as of 10/18/2021) [facility] illness Narrative* Problem Noted Date Resolved Date Abdominal pain, left lower quadrant 03/11/2008 09/02/2009 Diarrhea 03/11/2008 09/02/2009 Abdominal pain, generalized 12/19/20070 08/2009 Unspecified constipation 010 documented as of this encounter (statuses as of 11/03/2021) [facility] Narrative* Problem Noted Date Resolved Date Abdominal pain, left lower quadrant 03/11/2008 09/02/2009 Diarrhea 03/11/2008 09/02/2009 Abdominal pain, generalized 12/19/2007 030 08/2009 Unspecified constipation 010 documented as of this encounter (statuses as of 11/05/2021) [facility] Narrative* Problem Noted Date Resolved Date Abdominal pain, left lower quadrant 03/11/2008 09/02/2009 Diarrhea 03/11/2008 09/02/2009 Abdominal pain, generalized 12/19/20070 08/2009 Unspecified constipation 010 documented as of this encounter (statuses as of 11/09/2021) [facility] Narrative* Problem Noted Date Resolved Date Abdominal pain, left lower quadrant 03/11/2008 09/02/2009 Diarrhea 03/11/2008 09/02/2009 Abdominal pain, generalized 12/19/20070 08/2009 Unspecified constipation 010 documented as of this encounter (statuses as of 11/10/2021) [facility] Narrative* Problem Noted Date Resolved Date Abdominal pain, left lower quadrant 03/11/2008 09/02/2009 Diarrhea 03/11/2008 09/02/2009 Abdominal pain, generalized 12/19/20070 08/2009 Unspecified constipation 010 documented as of this encounter (statuses as of 11/11/2021) [facility] Narrative* Problem Noted Date Resolved Date Abdominal pain, left lower quadrant 03/11/2008 09/02/2009 Diarrhea 03/11/2008 09/02/2009 Abdominal pain, generalized 12/19/2007 030 08/2009 Unspecified constipation 03/03/2 010 documented as of this encounter (statuses as of 12/21/2021) [facility] Narrative* Problem Noted Date Resolved Date Abdominal pain, left lower quadrant 03/11/2008 09/02/2009 Diarrhea 03/11/2008 09/02/2009 Abdominal pain, generalized 12/19/2007 030 08/2009 Unspecified constipation 010 documented as of this encounter (statuses as of 01/12/2022) [facility] Narrative* Problem Noted Date Resolved Date Abdominal pain, left lower quadrant 03/11/2008 09/02/2009 Diarrhea 03/11/2008 09/02/2009 Abdominal pain, generalized 12/19/20070 08/2009 Unspecified constipation 010 documented as of this encounter (statuses as of 02/21/2022) [facility] Narrative* Problem Noted Date Resolved Date Abdominal pain, left lower quadrant 03/11/2008 09/02/2009 Diarrhea 03/11/2008 09/02/2009 Abdominal pain, generalized 12/19/20070 08/2009 Unspecified constipation 010 documented as of this encounter (statuses as of 03/09/2022) [facility] Narrative* Problem Noted Date Resolved Date Abdominal pain, left lower quadrant 03/11/2008 09/02/2009 Diarrhea 03/11/2008 09/02/2009 Abdominal pain, generalized 12/19/20070 08/2009 Unspecified constipation 010 documented as of this encounter (statuses as of 03/25/2022) [facility] Narrative* Problem Noted Date Resolved Date Abdominal pain, left lower quadrant 03/11/2008 09/02/2009 Diarrhea 03/11/2008 09/02/2009 Abdominal pain, generalized 12/19/20070 08/2009 Unspecified constipation 010 documented as of this encounter (statuses as of 06/21/2022) [facility] Narrative* Problem Noted Date Resolved Date Abdominal pain, left lower quadrant 03/11/2008 09/02/2009 Diarrhea 03/11/2008 09/02/2009 Abdominal pain, generalized 12/19/2007/0 08/2009 Unspecified constipation 010 documented as of this encounter (statuses as of 06/22/2022) [facility] Narrative* Problem Noted Date Resolved Date Abdominal pain, left lower quadrant 03/11/2008 09/02/2009 Diarrhea 03/11/2008 09/02/2009 Abdominal pain, generalized 12/19/2007 030 08/2009 Unspecified constipation 010 documented as of this encounter (statuses as of 07/11/2022) [facility] Narrative* Problem Noted Date Resolved Date Abdominal pain, left lower quadrant 03/11/2008 09/02/2009 Diarrhea 03/11/2008 09/02/2009 Abdominal pain, generalized 12/19/20070 08/2009 Unspecified constipation 010 documented as of this encounter (statuses as of 07/12/2022) [facility] Narrative* Problem Noted Date Resolved Date Abdominal pain, left lower quadrant 03/11/2008 09/02/2009 Diarrhea 03/11/2008 09/02/2009 Abdominal pain, generalized 12/19/20070 08/2009 Unspecified constipation 010 documented as of this encounter (statuses as of 07/19/2022) [facility]arrative* Problem Noted Date Resolved Date Abdominal pain, left lower quadrant 03/11/2008 09/02/2009 Diarrhea 03/11/2008 09/02/2009 Abdominal pain, generalized 12/19/20070 08/2009 Unspecified constipation 010 documented as of this encounter (statuses as of 08/29/2022) [facility]arrative* Problem Noted Date Resolved Date Abdominal pain, left lower quadrant 03/11/2008 09/02/2009 Diarrhea 03/11/2008 09/02/2009 Abdominal pain, generalized 12/19/2007 030 08/2009 Unspecified constipation 010 documented as of this encounter (statuses as of 09/05/2022) [facility]* Problem Noted Date Resolved Date Abdominal pain, left lower quadrant 03/11/2008 09/02/2009 Diarrhea 03/11/2008 09/02/2009 Abdominal pain, generalized 12/19/2007 03/0 08/2009 Unspecified constipation 010 documented as of this encounter (statuses as of 09/06/2022) [facility]* Problem Noted Date Resolved Date Abdominal pain, left lower quadrant 03/11/2008 09/02/2009 Diarrhea 03/11/2008 09/02/2009 Abdominal pain, generalized 12/19/2007 030 08/2009 Unspecified constipation 010 documented as of this encounter (statuses as of 10/11/2022) [facility]* Problem Noted Date Resolved Date Abdominal pain, left lower quadrant 03/11/2008 09/02/2009 Diarrhea 03/11/2008 09/02/2009 Abdominal pain, generalized 12/19/20070 08/2009 Unspecified constipation 010 documented as of this encounter (statuses as of 10/15/2022) [facility]* Problem Noted Date Resolved Date Abdominal pain, left lower quadrant 03/11/2008 09/02/2009 Diarrhea 03/11/2008 09/02/2009 Abdominal pain, generalized 12/19/20070 08/2009 Unspecified constipation 010 documented as of this encounter (statuses as of 10/20/2022) [facility]* Problem Noted Date Resolved Date Abdominal pain, left lower quadrant 03/11/2008 09/02/2009 Diarrhea 03/11/2008 09/02/2009 Abdominal pain, generalized 12/19/20070 08/2009 Unspecified constipation 010 documented as of this encounter (statuses as of 10/27/2022) [facility]* Problem Noted Date Resolved Date Abdominal pain, left lower quadrant 03/11/2008 09/02/2009 Diarrhea 03/11/2008 09/02/2009 Abdominal pain, generalized 12/19/20070 08/2009 Unspecified constipation 010 documented as of this encounter (statuses as of 10/31/2022) [facility]* Problem Noted Date Resolved Date Abdominal pain, left lower quadrant 03/11/2008 09/02/2009 Diarrhea 03/11/2008 09/02/2009 Abdominal pain, generalized 12/19/2007 030 08/2009 Unspecified constipation 010 documented as of this encounter (statuses as of 10/31/2022) [facility]* Problem Noted Date Resolved Date Abdominal pain, left lower quadrant 03/11/2008 09/02/2009 Diarrhea 03/11/2008 09/02/2009 Abdominal pain, generalized 12/19/2007 030 08/2009 Unspecified constipation 010 documented as of this encounter (statuses as of 11/01/2022) [facility]* Problem Noted Date Resolved Date Abdominal pain, left lower quadrant 03/11/2008 09/02/2009 Diarrhea 03/11/2008 09/02/2009 Abdominal pain, generalized 12/19/20070 08/2009 Unspecified constipation 010 documented as of this encounter (statuses as of 11/07/2022) [facility]* Problem Noted Date Resolved Date Abdominal pain, left lower quadrant 03/11/2008 09/02/2009 Diarrhea 03/11/2008 09/02/2009 Abdominal pain, generalized 12/19/20070 08/2009 Unspecified constipation 010 documented as of this encounter (statuses as of 11/16/2022) [facility]* Problem Noted Date Resolved Date Abdominal pain, left lower quadrant 03/11/2008 09/02/2009 Diarrhea 03/11/2008 09/02/2009 Abdominal pain, generalized 12/19/20070 08/2009 Unspecified constipation 010 documented as of this encounter (statuses as of 12/03/2022) [facility]* Problem Noted Date Diagnosed Date Resolved Date Abdominal pain, left lower quadrant 03/11/2008 09/02/2009 Diarrhea 03/11/2008 09/02/2009 Abdominal pain, generalized 12/19/2007 09/02/2009 Unspecified constipation 08/2009 documented as of this encounter (statuses as of 02/28/2023) [facility]* Problem Noted Date Diagnosed Date Resolved Date Abdominal pain, left lower quadrant 03/11/2008 09/02/2009 Diarrhea 03/11/2008 09/02/2009 Abdominal pain, generalized 12/19/2007 09/02/2009 Unspecified constipation 08/2009 documented as of this encounter (statuses as of 03/21/2023) [facility]* Problem Noted Date Diagnosed Date Resolved Date Abdominal pain, left lower quadrant 03/11/2008 09/02/2009 Diarrhea 03/11/2008 09/02/2009 Abdominal pain, generalized 12/19/2007 09/02/2009 Unspecified constipation 08/2009 documented as of this encounter (statuses as of 03/22/2023) [facility]* Problem Noted Date Diagnosed Date Resolved Date Abdominal pain, left lower quadrant 03/11/2008 09/02/2009 Diarrhea 03/11/2008 09/02/2009 Abdominal pain, generalized 12/19/2007 09/02/2009 Unspecified constipation 08/2009 documented as of this encounter (statuses as of 03/23/2023) [facility]* Problem Noted Date Diagnosed Date Resolved Date Abdominal pain, left lower quadrant 03/11/2008 09/02/2009 Diarrhea 03/11/2008 09/02/2009 Abdominal pain, generalized 12/19/2007 09/02/2009 Unspecified constipation 08/2009 documented as of this encounter (statuses as of 04/01/2023) [facility]* Problem Noted Date Diagnosed Date Resolved Date Abdominal pain, left lower quadrant 03/11/2008 09/02/2009 Diarrhea 03/11/2008 09/02/2009 Abdominal pain, generalized 12/19/2007 09/02/2009 Unspecified constipation 08/2009 documented as of this encounter (statuses as of 04/11/2023) [facility]* Problem Noted Date Diagnosed Date Resolved Date Abdominal pain, left lower quadrant 03/11/2008 09/02/2009 Diarrhea 03/11/2008 09/02/2009 Abdominal pain, generalized 12/19/2007 09/02/2009 Unspecified constipation 08/2009 documented as of this encounter (statuses as of 04/11/2023) [facility]* Problem Noted Date Diagnosed Date Resolved Date Abdominal pain, left lower quadrant 03/11/2008 09/02/2009 Diarrhea 03/11/2008 09/02/2009 Abdominal pain, generalized 12/19/2007 09/02/2009 Unspecified constipation 08/2009 documented as of this encounter (statuses as of 04/12/2023) [facility]* Problem Noted Date Diagnosed Date Resolved Date Abdominal pain, left lower quadrant 03/11/2008 09/02/2009 Diarrhea 03/11/2008 09/02/2009 Abdominal pain, generalized 12/19/2007 09/02/2009 Unspecified constipation 08/2009 documented as of this encounter (statuses as of 05/07/2023) [facility]* Problem Noted Date Diagnosed Date Resolved Date Abdominal pain, left lower quadrant 03/11/2008 09/02/2009 Diarrhea 03/11/2008 09/02/2009 Abdominal pain, generalized 12/19/2007 09/02/2009 Unspecified constipation 08/2009 documented as of this encounter (statuses as of 05/07/2023) [facility]* Problem Noted Date Diagnosed Date Resolved Date Abdominal pain, left lower quadrant 03/11/2008 09/02/2009 Diarrhea 03/11/2008 09/02/2009 Abdominal pain, generalized 12/19/2007 09/02/2009 Unspecified constipation 08/2009 documented as of this encounter (statuses as of 05/24/2023) [facility]* Problem Noted Date Diagnosed Date Resolved Date Abdominal pain, left lower quadrant 03/11/2008 09/02/2009 Diarrhea 03/11/2008 09/02/2009 Abdominal pain, generalized 12/19/2007 09/02/2009 Unspecified constipation 08/2009 documented as of this encounter (statuses as of 08/18/2023) [facility]* Problem Noted Date Diagnosed Date Resolved Date Abdominal pain, left lower quadrant 03/11/2008 09/02/2009 Diarrhea 03/11/2008 09/02/2009 Abdominal pain, generalized 12/19/2007 09/02/2009 Unspecified constipation 08/2009 documented as of this encounter (statuses as of 08/21/2023) [facility]* Problem Noted Date Diagnosed Date Resolved Date Abdominal pain, left lower quadrant 03/11/2008 09/02/2009 Diarrhea 03/11/2008 09/02/2009 Abdominal pain, generalized 12/19/2007 09/02/2009 Unspecified constipation 08/2009 documented as of this encounter (statuses as of 08/30/2023) [facility]* Problem Noted Date Diagnosed Date Resolved Date Abdominal pain, left lower quadrant 03/11/2008 09/02/2009 Diarrhea 03/11/2008 09/02/2009 Abdominal pain, generalized 12/19/2007 09/02/2009 Unspecified constipation 08/2009 documented as of this encounter (statuses as of 09/04/2023) [facility]* Problem Noted Date Diagnosed Date Resolved Date Abdominal pain, left lower quadrant 03/11/2008 09/02/2009 Diarrhea 03/11/2008 09/02/2009 Abdominal pain, generalized 12/19/2007 09/02/2009 Unspecified constipation 08/2009 documented as of this encounter (statuses as of 09/19/2023) [facility] Author Leti Petersen [facility] Note Date/Time September 17, 2024 3:[address] [place] [address] Medical Records Department [address] [place] [id number] Anesthesia Postop Eval I 09/17/24 1524 MR#: [id number] Acct: [id number] Name: ROMAN KUHN Rep #:[id number] : 1950 73 From: Leti Petersen CRNA PCP: Dr. Pepe Reyes MD Status:RE G SDC Y Race: C Location: [place] [address] Anesthesia: Postop Eval I Current Vital Signs Temperature: 98.3 F Pulse Rate: 94 Blood Pressure: 109/69 Respiratory Rate: 20 Pulse Ox: 98 Oxygen Delivery Method: Room Air Assessment Airway patent: Yes Spontaneous unlabored respirations: Yes Mental status: Awake nausea: No Vomiting: No Anesthesia Complication: No Fluid Hydration Crystalloid volume administer (ml): 10 Total IV fluid infused: 10 Progress Note Anesthesia document: Postop Eval 1 completed: Yes 09/17/24 1531 <Electronically signed by Leti headley TIRE SHOP MANAGER> Date _ Leti Petersen [employer]RE SHOP MANAGER Cosigner Signature: Date CC: ~ Signed [facility] Work Phone: Consult note Author Santo Hankins [facility] Note Date/Time September 17, 2024 4:2 9pm [facility] Medical Records Department [address] [place] [address] Anesthesia Postop Eval II 09/17/24 1624 MR#: [id number] Acct: [id number] Name: ROMAN KUHN Rep #:[id number] : 1950 73 From: Santo Hankins MD PCP: Dr. Pepe Reyes MD Status: G [facility] Y Race: C Location: [place] [address] Anesthesia Postop Eval I Sum Postop Eval Completion status Anesthesia document: Postop Eval 1 completed: Yes Anesthesia Postop Eval I Summary Anesthesia Postop Eval I Summary: Anesthesia Postop Eval I: Assessment Summary Airway patent Yes 09/17/24 15:31 TIRE SHOP [email or web address] Spontaneous unlabored Yes 09/17/24 15:31 TIRE SHOP [email or web address] respirations Mental status Awake 09/17/24 15:31 TIRE SHOP [email or web address] nausea No 09/17/24 15:31 TIRE SHOP [email or web address] Vomiting No 09/17/24 15:31 TIRE SHOP [email or web address] Anesthesia Postop Eval I: Fluid Summary Crystalloid volume administer 10 09/17/24 15:31 TIRE SHOP [email or web address] (ml) Colloids volume administered ( ml) Blood Product volume administered (ml) Total IV fluid infused 10 09/17/24 15:31 TIRE SHOP [email or web address] Anesthesia Postop Eval I: Summary Notes Anesthesia Complication No 09/17/24 15:31 TIRE SHOP MANAGER.[email or web address] Anesthesia Complication Comment: Post-operative progress note Anesthesia: Postop Eval II Evaluation Mental status: Awake Pain Level: 0 nausea: No Vomiting: No Complications Anesthesia Complication: No 09/17/24 1624 <Electronically signed by Santo Hankins MD> Date _ Santo Hankins MD Cosigner Signature: Date CC: ~ Signed [facility] Work Phone: Evaluation note* Diagnosis Sinobronchitis- Primary Unspecified sinusitis (chronic) Viral URI Acute upper respiratory infections of unspecified site [facility] for screening mamm[facility] cancer [facility] Abnormal mammogram- Primary Abnormal mammogram, unspecified [facility] Diagnosis Encounter for screening mammogram for breast cancer [facility] Diagnosis Abnormal mammogram- Primary Abnormal mammogram, unspecified [facility] Diagnosis Abnormal mammogram Abnormal mammogram, unspecified [facility] Diagnosis Hypothyroidism, unspecified type- Primary Hyperlipidemia, unspecified hyperlipidemia type Elevated glucose Other abnormal glucose Irritable bowel syndrome, unspecified type Gastroesophageal reflux disease, unspecified whether esophagitis present Nail fungus Dermatophytosis of nail [facility] Diagnosis Bacterial sinusitis- Primary Unspecified sinusitis (chronic) Sinus congestion Other diseases of nasal cavity and sinuses [facility] Diagnosis Chronic superficial gastritis without bleeding Atrophic gastritis without mention of hemorrhage Gastroesophageal reflux disease without esophagitis Esophageal reflux Gastroesophageal reflux disease with esophagitis without hemorrhage Regurgitant esophagitis Esophagitis, unspecified documented in this encounter [facility] note* Diagnosis Gastroesophageal reflux disease, unspecified whether esophagitis present- Primary Nail fungus Dermatophytosis of nail documented in this encounter [facility] note* Diagnosis Hypothyroidism, unspecified type- Primary Hyperlipidemia, unspecified hyperlipidemia type Gastroesophageal reflux disease, unspecified whether esophagitis present Irritable bowel syndrome, unspecified type Elevated glucose Other abnormal glucose Smoker Tobacco use disorder documented in this encounter [facility] note* Diagnosis Bacterial sinusitis- Primary Unspecified sinusitis (chronic) Fatigue, unspecified type Sinus congestion Other diseases of nasal cavity and sinuses documented in this encounter [facility] note* Diagnosis Primary osteoarthritis of both knees- Primary Primary localized osteoarthrosis, lower leg Chondrocalcinosis of knee, unspecified laterality documented in this encounter [facility] note* Diagnosis Acute bronchitis, unspecified organism- Primary Chronic pain of right knee documented in this encounter [facility] note* Diagnosis Chronic bilateral low back pain with bilateral sciatica- Primary documented in this encounter [facility] note* Diagnosis Cough present for greater than 3 weeks- Primary Acute bronchitis, unspecified organism Gastroesophageal reflux disease, unspecified whether esophagitis present Encounter for screening for lung cancer documented in this encounter [facility] note* Diagnosis Encounter for screening for lung cancer- Primary Tobacco use current documented in this encounter [facility] note* Diagnosis Encounter for screening for lung cancer- Primary Tobacco use current documented in this encounter [facility] note* Diagnosis Acute cough- Primary Foreign body in skin of finger, initial encounter documented in this encounter [facility] note* Diagnosis Hypothyroidism, unspecified type- Primary Encounter for screening mammogram for malignant neoplasm of breast Other screening mammogram Hyperlipidemia, unspecified hyperlipidemia type Gastroesophageal reflux disease, unspecified whether esophagitis present Irritable bowel syndrome, unspecified type Nail fungus Dermatophytosis of nail Seborrheic keratosis Other seborrheic keratosis documented in this encounter [facility] note* Diagnosis Rhinosinusitis- Primary Unspecified sinusitis (chronic) URI, acute Acute upper respiratory infections of unspecified site documented in this encounter [facility] note* Diagnosis Vaginal discomfort- Primary Unspecified symptom associated with female genital organs documented in this encounter [facility] note* Diagnosis Encounter for screening mammogram for breast cancer documented in this encounter [facility] note* Diagnosis Encounter for screening for lung cancer Tobacco use current documented in this encounter [facility] note* Diagnosis Hyperlipidemia, unspecified hyperlipidemia type documented in this encounter [facility] note* Diagnosis Acute otitis externa of right ear, unspecified type- Primary Impacted cerumen of right ear Impacted cerumen Sinus congestion Other diseases of nasal cavity and sinuses Palpitations documented in this encounter [facility] note* Diagnosis Gastroesophageal reflux disease, unspecified whether esophagitis present documented in this encounter [facility] note* Diagnosis Eustachian tube dysfunction, bilateral- Primary documented in this encounter [facility] note* Diagnosis Lung nodule- Primary Solitary pulmonary nodule Encounter for screening for lung cancer Tobacco use current documented in this encounter [facility] note* Diagnosis Encounter for screening for lung cancer Tobacco use current documented in this encounter [facility] note* Diagnosis Gastroesophageal reflux disease, unspecified whether esophagitis present Irritable bowel syndrome, unspecified type documented in this encounter [facility] note* Diagnosis Gastroesophageal reflux disease, unspecified whether esophagitis present- Primary Irritable bowel syndrome, unspecified type Hyperlipidemia, unspecified hyperlipidemia type Elevated glucose Other abnormal glucose Hypothyroidism, unspecified type Smoker Tobacco use disorder Screening for depression Encounter for screening examination for other mental health and behavioral disorders Rosacea documented in this encounter [facility] note* Diagnosis Sinobronchitis- Primary Unspecified sinusitis (chronic) Body aches Generalized pain Fever and chills Fever, unspecified documented in this encounter [facility] note* Diagnosis Acute [facility] Diagnosis Cough present for greater than 3 weeks Acute bronchitis, unspecified organism documented in this encounter [facility] note* Diagnosis Primary osteoarthritis of both knees Primary localized osteoarthrosis, lower leg Chronic bilateral low back pain with bilateral sciatica documented in this encounter [facility] note* Diagnosis Sinobronchitis Unspecified sinusitis (chronic) Viral URI Acute upper respiratory infections of unspecified site documented in this encounter [facility] note* Diagnosis Left knee pain, unspecified chronicity- Primary documented in this encounter [facility] note* Diagnosis Accidental insect sting- Primary [facility] Diagnosis Primary osteoarthritis of both knees- Primary Primary localized osteoarthrosis, lower leg documented in this encounter [facility] note* Diagnosis Left knee pain, unspecified chronicity documented in this encounter [facility] note* Diagnosis Bacterial sinusitis- Primary Unspecified sinusitis (chronic) documented in this encounter [facility] note* Diagnosis Irritable bowel syndrome, unspecified type- Primary Generalized abdominal pain Abdominal pain, generalized Gastroenteritis Other and unspecified noninfectious gastroenteritis and colitis [facility] Diagnosis Gastroesophageal reflux disease, unspecified whether esophagitis present documented in this encounter [facility] note* Diagnosis Irritable bowel syndrome, unspecified type- Primary Hyperlipidemia, unspecified hyperlipidemia type Hypothyroidism, unspecified type Elevated glucose Other abnormal glucose Gastroesophageal reflux disease, unspecified whether esophagitis present Chronic bilateral low back pain with bilateral sciatica Smoker Tobacco use disorder documented in this encounter [facility] note* Diagnosis Primary osteoarthritis of both knees- Primary Primary localized osteoarthrosis, lower leg Chondrocalcinosis of knee, unspecified laterality documented in this encounter [facility] note* Diagnosis Primary osteoarthritis of both knees- Primary Primary localized osteoarthrosis, lower leg [facility]* Diagnosis Gastritis, bile acid reflux- Primary Other specified gastritis without mention of hemorrhage Gastroesophageal reflux disease, unspecified whether esophagitis present Irritable bowel syndrome, unspecified type [facility]* Diagnosis Insect bite of nose, initial encounter- Primary Cellulitis of skin Cellulitis and abscess of unspecified site documented in this encounter [facility] note* Diagnosis Cigarette smoker- Primary Tobacco use disorder [facility]* Diagnosis Hyperlipidemia, unspecified hyperlipidemia type documented in this encounter [facility] note* Diagnosis Shoulder impingement Other affections of shoulder region, not elsewhere classified documented in this encounter [facility] note* Diagnosis Calcific tendinitis of right shoulder- Primary Calcifying tendinitis of shoulder Primary osteoarthritis of left knee Primary localized osteoarthrosis, lower leg [facility]* Diagnosis Acute non-recurrent sinusitis, unspecified location- Primary Acute bronchitis, unspecified organism [facility] Diagnosis Hypothyroidism, unspecified type- Primary Screening for depression Encounter for screening examination for other mental health and behavioral disorders Need for influenza vaccination Need for prophylactic vaccination and inoculation against influenza Hyperlipidemia, unspecified hyperlipidemia type Gastroesophageal reflux disease, unspecified whether esophagitis present Irritable bowel syndrome, unspecified type Elevated glucose Other abnormal glucose Smoker Tobacco use disorder [facility] Author Chucky Woodall [facility] Note Date/Time September 17, 2024 2:5 6pm [facility] Medical Records Department [address] [place] [address] History & Physical Exam 09/17/24 1454 MR#: [id number] Acct: [id number] Name: ROMAN KUHN Rep #:[id number] : 1950 73 From: Chucky Woodall DO PCP: Dr. Pepe Reyes MD Status[facility] Location: [place] [address] HPI - General General Date of Admission: 09/17/24 Date of Service: 09/17/24 Chief Complaint: Abdominal pain HPI Narrative ROMAN KUHN, is a 73 F who presentsLUBA KUHN, is a 73 F who presents to the office today for initial consult. *BGI established 12.26.24 Pt reports long history of IBS and GERD. Pt reports being on antibiotics and steroids in the past few weeks and feels this has exacerbated her symptoms. Pt reported daily use of miralax and benefiber, usually has a daily bm. Pt reports increased nausea with constipation. Pt statesthat she was told she has an extra 10 inches of intestines and wonders if this is affecting her digestion. ROS Const Constitutional: Positive for fatigue; No fever(s) or weight change ENT ENT: No difficulty swallowing Cardio Cardiology: Positive for leg pain with exertion Gastro GI: Positive for bloating, constipation, excessive flatus and nausea/dyspepsia; No abdominal pain, belching, change in bowel habits, change in stool character, coffee ground emesis, cramping, diarrhea, heartburn, difficulty swallowing, feeling full early, incontinent of stools, Vomiting blood/hematemesis, Blood in stool, loose stools, Black,tarry stools, pain with swallowing, vomiting or other Musc Musculoskeletal: Positive for joint pain, back pain, stiffness, Arthritis and leg pain with exertion Skin Skin: Positive for dry skin; No yellowing of the eye or itchy eyes Psych Psychiatric: No anxiety and No depression Endo Endocrine: Positive for fatigue; No weight change Aller/Imm Allergy/Immunologic: No itchy eyes Rolo/Lymp Hematologic/Lymphatic: Positive for easy bruising; No easy bleeding Exam Const General: cooperative, healthy appearing, comfortable, no acute distress, well developed and well groomed Nutritional Appearance: average body habitus and well nourished Orientation: alert, awake and oriented x3 Limitations: altered mental status Eyes General: appearance normal, both eyes and all related structures Neck Neck: normal visual inspection, no lymphadenopathy, trachea midline and supple Resp Effort & Inspection: normal respiratory effort, able to speak in complete sentences and symmetric chest movement Auscultation: Bilateral: Clear to Auscultation Cardio Palpation: normal PMI Rate: regular rate Rhythm: regular rhythm Heart Sounds: S1 normal and S2 normal GI Inspection: normal to inspection Auscultation: normal bowel sounds Percussion: normal to percussion Palpation: soft Rectal Exam: visual inspection normal Assessment and Plan Assessment and Plan (1) Gastroesophageal reflux disease: (2) Diarrhea: Status: Inactive (3) IBS (irritable bowel syndrome): Status: Acute Plan: Patient is a 73-year-old female presenting with diffuse abdominal pain. Patientstates that she is on her last day of doxycycline and finished a course of prednisone yesterday. She was on it for sinusitis. Though symptoms have improved however she is been having worsening GI symptoms for the past few days. She notes that she felt nauseous on Monday, 5 days ago and started to have discomfort from her throat down all the way to her rectum. She states her abdomen just feels bloated and her entire GI tract feels hot. She has previously seen GI through [facility] and started taking her colestipol 3 times a day as well as daily MiraLAX and Benefiber. 2 days ago she took Colace because she still felt like nothing was moving in her stomach and then took a Grimes'. She states she usually tries to avoid taking any stimulant laxatives. She notes yesterday evening she started having copious soft serve style bowel movements. She notes it is a little darker than normal but denies any black or blood in her stool. She is been feeling fatigued. She took an Imodium this morning in anticipation of coming to the emergency room. She denies any fevers. Does have a prior history of cholecystectomy and partial hysterectomy. States she is a diagnosis of IBS and GERD and in the s did havesome rectal bleeding inflammatory condition that she had to take medicine for and use suppositories. She is not sure if she has an actual history of Crohn disease, ulcerative colitis or other inflammatory bowel disorder. No other complaints or concerns reported at this time. She has not had any imaging. She did do very well with antibiotic therapy and transition to probiotic. We will test her stool for exocrine pancreatic insufficiency and an occult infection. She will also get biochemical profile for autoimmune disease such as inflammatory bowel disease, celiac disease that may affect her GI tract. We will have her continue on probiotic for now. Orders: Orders Calprotectin, Stool Today R19.7 - Diarrhea, unspecified CRP Today R19.7 - Diarrhea, unspecified Celiac Disease Profile Today R19.7 - Diarrhea, unspecified JOSE + Protein Elect, Serum Today R19.7 - Diarrhea, unspecified ANCA Today R19.7 - Diarrhea, unspecified Erythrocyte Sed Rate Today R19.7 - Diarrhea, unspecified Immunoglobulins G/A/M/E Today R19.7 - Diarrhea, unspecified IBD Expanded Profile Today R19.7 - Diarrhea, unspecified Vitamin B12 Today R19.7 - Diarrhea, unspecified Folates, (Folic Acid) Today R19.7 - Diarrhea, unspecified Allergen, Food Profile 14 Today R19.7 - Diarrhea, unspecified Lipase Today R19.7 - Diarrhea, unspecified Amylase Today R19.7 - Diarrhea, unspecified Anti-Parietal Cell AB, QN Today R19.7 - Diarrhea, unspecified Gastrin, Serum Today R19.7 - Diarrhea, unspecified DARIO Comprehensive Panel Today R19.7 - Diarrhea, unspecified Intrinsic Factor Ab Today K58.9 - Irritable bowel syndrome, unspecified PFSH Medical History Hypothyroid Thyroid disease Arthritis High cholesterol History of IBS Smoker History of stress test IBS (irritable bowel syndrome) GERD (gastroesophageal reflux disease) Home Medications ?Medication ?Instructions ?Recorded ?Last Taken ?Type colestipol 1 gram tablet 1 g PO QDAY 06/27/24 Unknown History famotidine 20 mg tablet 20 mg PO QDAY 06/27/24 Unkno wn History levothyroxine 112 mcg capsule 112 mcg PO QDAY 06/27/24 Unknown History pantoprazole 40 mg tablet,delayed 40 mg PO QDAY Unknown History release pravastatin 40 mg tablet 40 mg PO QDAY 06/27/24 Unkno wn History Allergy/AdvReac Type Severity Reaction Status Date / Time citalopram (From Celexa) Allergy Unknown PT UNSURE Verified 09/17/24 12:48 OF REACTION clarithromycin (From Biaxin) Allergy Unknown PT UNABLE Verified 09/17/24 12:48 TO RESPOND-NEEDS F/U sulfamethoxazole (From Allergy Unknown PT UNSURE Verified 09/17/24 12:48 Bactrim) OF REACTION trimethoprim (From Bactrim) Allergy Unknown PT UNSURE Verified 09/17/24 12:48 OF REACTION atorvastatin (From Lipitor) Allergy PT UNSURE Verified 09/17/24 12:48 OF REACTION cefixime (From Suprax) Allergy PT UNABLE Verified 09/17/24 12:48 TO RESPOND-NEEDS F/U chlorzoxazone (From Parafon Allergy PT UNSURE Verified 09/17/24 12:48 Forte) OF REACTION ciprofloxacin (From Cipro) Allergy PT UNABLE Verified 09/17/24 12:48 TO RESPOND-NEEDS F/U diclofenac (From Voltaren) Allergy PT UNABLE Verified 09/17/24 12:48 TO RESPOND-NEEDS F/U flavoxate (From Urispas) Allergy PT UNABLE Verified 09/17/24 12:48 TO RESPOND-NEEDS F/U guaifenesin (From Entex LA) Allergy PT UNABLE Verified 09/17/24 12:48 TO RESPOND-NEEDS F/U hyoscyamine (From Levsinex) Allergy PT UNSURE Verified 09/17/24 12:48 OF REACTION moxifloxacin (From Avelox) Allergy PT UNSURE Verified 09/17/24 12:48 OF REACTION paroxetine (From Paxil) Allergy PT UNSURE Verified 09/17/24 12:48 OF REACTION phenylephrine (From Entex LA) Allergy PT UNABLE Verified 09/17/24 12:48 TO RESPOND-NEEDS F/U phenylpropanolamine (From Allergy PT UNABLE Verified 09/17/24 12:48 Entex LA) TO RESPOND-NEEDS F/U Sulfa (Sulfonamide Allergy PT UNABLE Verified 09/17/24 12:48 Antibiotics) TO RESPOND-NEEDS F/U Surgical History History of colonoscopy History of esophagogastroduodenoscopy (EGD) Status post panniculectomy (~1980) History of cholecystectomy History of partial hysterectomy Social History Smoking Status: Current every day smoker tobacco type: cigarettes ROS Constitutional Constitutional: Denies fatigue, fever(s), poor appetite, weight gain or weight loss Gastrointestinal Gastrointestinal: Denies belching, bloating, change in bowel habits, change in stool character, chewing difficulty, coffee ground emesis, constipation, cramping, diarrhea, dyspepsia, dysphagia, early satiety, excessive flatus, fecalincontinence, heartburn, hematemesis, hematochezia, hemorrhoids, loose stools, melena, nausea, odynophagia, rectal bleeding, tenesmus, vomiting or weight changes Vital Signs Vital Signs Vital Signs: 09/17/24 12:49 09/17/24 12:49 09/17/24 13:11 Temperature 98 F 98 F Temperature Source Temporal Pulse Rate 100 100 Respiratory Rate 16 16 Respiratory Pattern Normal Blood Pressure 121/71 H 121/71 H Blood Pressure Mean 87 Blood Pressure Source Monitor Blood Pressure Position Semi-Fowlers Blood Pressure Location Right Arm Pulse Ox 99 99 Oxygen Delivery Method Room Air Room Air Weight Weight: 124 lb 12.506 oz Body Mass Index (BMI) 22.1 Physical Exam Const alert, oriented x3, no apparent distress and healthy appearing General Appearance: cooperative GI normal to inspection, nondistended, normoactive bowel sounds, soft to palpation,non-tender and non-distended Percussion: normal to percussion Rectal Exam: deferred Assessment & Plan Assessment/Plan (1) IBS (irritable bowel syndrome): PLAN: Assessment and Plan Assessment and Plan (1) Gastroesophageal reflux disease: (2) Diarrhea: Status: Inactive (3) IBS (irritable bowel syndrome): Status: Acute Plan: Patient is a 73-year-old female presenting with diffuse abdominal pain. Patientstates that she is on her last day of doxycycline and finished a course of prednisone yesterday. She was on it for sinusitis. Though symptoms have improved however she is been having worsening GI symptoms for the past few days. She notes that she felt nauseous on Monday, 5 days ago and started to have discomfort from her throat down all the way to her rectum. She states her abdomen just feels bloated and her entire GI tract feels hot. She has previously seen GI through [facility] and started taking her colestipol 3 times a day as well as daily MiraLAX and Benefiber. 2 days ago she took Colace because she still felt like nothing was moving in her stomach and then took a Grimes'. She states she usually tries to avoid taking any stimulant laxatives. She notes yesterday evening she started having copious soft serve style bowel movements. She notes it is a little darker than normal but denies any black or blood in her stool. She is been feeling fatigued. She took an Imodiumthis morning in anticipation of coming to the emergency room. She denies any fevers. Does have a prior history of cholecystectomy and partial hysterectomy. States she is a diagnosis of IBS and GERD and in the s did have some rectal bleeding inflammatory condition that she had to take medicine for and use suppositories. She is not sure if she has an actual history of Crohn disease, ulcerative colitis or other inflammatory bowel disorder. No other complaints orconcerns reported at this time. She has not had any imaging. She did do very well with antibiotic therapy and transition to probiotic. We will test her stool for exocrine pancreatic insufficiency and an occult infection. She will also get biochemical profile for autoimmune disease such as inflammatory bowel disease, celiac disease that may affect her GI tract. We will have her continue on probiotic for now. Orders: Orders Calprotectin, Stool Today R19.7 - Diarrhea, unspecified CRP Today R19.7 - Diarrhea, unspecified Celiac Disease Profile Today R19.7 - Diarrhea, unspecified JOSE + Protein Elect, Serum Today R19.7 - Diarrhea, unspecified ANCA Today R19.7 - Diarrhea, unspecified Erythrocyte Sed Rate Today R19.7 - Diarrhea, unspecified Immunoglobulins G/A/M/E Today R19.7 - Diarrhea, unspecified IBD Expanded Profile Today R19.7 - Diarrhea, unspecified Vitamin B12 Today R19.7 - Diarrhea, unspecified Folates, (Folic Acid) Today R19.7 - Diarrhea, unspecified Allergen, Food Profile 14 Today R19.7 - Diarrhea, unspecified Lipase Today R19.7 - Diarrhea, unspecified Amylase Today R19.7 - Diarrhea, unspecified Anti-Parietal Cell AB, QN Today R19.7 - Diarrhea, unspecified Gastrin, Serum Today R19.7 - Diarrhea, unspecified DARIO Comprehensive Panel Today R19.7 - Diarrhea, unspecified Intrinsic Factor Ab Today K58.9 - Irritable bowel syndrome, unspecified 09/17/24 1456 <Electronically signed by Chucky Woodall DO> Cosigner Signature (if applicable): CC: Dr. Pepe Reyes MD; Chucky Woodall DO~ Signed [facility] Work Phone: Reason for referral (narrative)* Outpatient Procedure (Routine) - Authorized Specialty Diagnoses / Procedures Referred By Maulik fraire Referred To Contact [facility] Diagnoses Cough Procedures SPIROMETRY - BASELINE AND POST DILATOR BRNCDILAT RSPSE SPMTRY PRE&POST-BRNCDILAT Rob Mcdaniel APRN.CNP [address] [place] [address] [facility] [address] [place] [address] Referral ID Status Reason Start Date Expiration Date Visits Requested Visits Authorized [id number] Authorized Auto-Generat ed Referral 10/25/2021 11/10/[address] [facility] for referral (narrative)* Diagnostic Procedure Only (Routine) - Pending Review Specialty Diagnoses / Procedures Referred By Maulik fraire Referred To Contact [facility] Diagnoses Encounter for screening mammogram for breast cancer Procedures MOISE SCREENING SCREENING MAMMOGRAPHY BI 2-VIEW BREAST INC CAD Pepe Reyes MD [address] [place] [address] [facility] [address] [place] [address] Referral ID Status Reason Start Date Expiration Date Visits Requested Visits Authorized [id number] Pending Review Auto-Generat ed Referral 10/13/2021 11/12/[address] [facility] for referral (narrative)* Diagnostic Procedure Only (Routine) - Pending Review Specialty Diagnoses / Procedures Referred By Maulik fraire Referred To Contact [facility] Diagnoses Abnormal mammogram Procedures US BREAST LTD LT US BREAST UNI REAL TIME WITH IMAGE LIMITED Pepe Reyes MD [address] [place] [address] [facility] [address] [place] [address] Referral ID Status Reason Start Date Expiration Date Visits Requested Visits Authorized [id number] Pending Review Auto-Generat ed Referral 11/10/2021 12/10/2022 1 1 * Diagnostic Procedure Only (Routine) - Pending Review Specialty Diagnoses / Procedures Referred By Maulik fraire Referred To Contact [facility] Diagnoses Abnormal mammogram Procedures MOISE DIAGNOSTIC LT DIAGNOSTIC MAMMOGRAPHY COMPUTER-AIDED DETCJ UNI Pepe Reyes MD [address] [place] [address] [facility] [address] [place] [address] Referral ID Status Reason Start Date Expiration Date Visits Requested Visits Authorized [id number] Pending Review Auto-Generat ed Referral 11/10/2021 12/10/[address] [facility] for referral (narrative)* Diagnostic Procedure Only (Routine) - Authorized Specialty Diagnoses / Procedures Referred By Maulik fraire Referred To Contact [facility] Diagnoses Encounter for screening mammogram for breast cancer Procedures MOISE SCREENING SCREENING MAMMOGRAPHY BI 2-VIEW BREAST INC CAD Pepe Reyes MD [address] [place] [address] [facility] [address] [place] [address] Referral ID Status Reason Start Date Expiration Date Visits Requested Visits Authorized [id number] Authorized Auto-Generat ed Referral 10/13/2021 11/12/[address] [facility] for referral (narrative)* Diagnostic Procedure Only (Routine) - Pending Review Specialty Diagnoses / Procedures Referred By Maulik fraire Referred To Contact [facility] Diagnoses Abnormal mammogram Procedures MOISE DIAGNOSTIC BILAT DIAGNOSTIC MAMMOGRAPHY COMPUTER-AIDED DETCJ Pepe Lemons MD [address] [place] [address] [facility] [address] [place] [address] Referral ID Status Reason Start Date Expiration Date Visits Requested Visits Authorized [id number] Pending Review Auto-Generat ed Referral 12/21/2021 01/20/[address] [facility] for referral (narrative)* Diagnostic Procedure Only (Routine) - Authorized Specialty Diagnoses / Procedures Referred By Maulik fraire Referred To Contact [facility] Diagnoses Encounter for screening mammogram for malignant neoplasm of breast Procedures MOISE SCREENING SCREENING MAMMOGRAPHY BI 2-VIEW BREAST INC Pepe Valentin MD [address] [place] [address] [facility] [address] [place] [address] Referral ID Status Reason Start Date Expiration Date Visits Requested Visits Authorized [id number] Authorized Auto-Generat ed Referral 02/27/2023 03/28/[address] [facility] for referral (narrative)* Diagnostic Procedure Only (Routine) - Closed Specialty Diagnoses / Procedures Referred By Maulik fraire Referred To Contact [facility] Diagnoses Encounter for screening mammogram for breast cancer Procedures MOISE SCREENING W EDGAR SCREENING DIGITAL BREAST TOMOSYNTHESIS BI SCREENING MAMMOGRAPHY BI 2-VIEW BREAST INC Pepe Valentin MD [address] [place] [address] [facility] [address] [place] [address] Referral ID Status Reason Start Date Expiration Date V isits Requested Visits Authorized [id number] Closed Auto-Generate d Referral 02/15/2023 03/16/[address] [facility] for referral (narrative)* Outpatient Procedure (Routine) - Pending Review Specialty Diagnoses / Procedures Referred By Contac t Referred To Contact [facility] Diagnoses Palpitations Procedures ECG COMPLETE ECG ROUTINE ECG W/LEAST 12 LDS W/I&R Elise Crocker APRN.CANCER REGISTRAR [address] [place] [address] [facility] [address] [place] [address] Referral ID Status Reason Start Date Expiration Date Visits Requested Visits Authorized [id number] Pending Review Auto-Generat ed Referral 08/18/2023 08/17/[address] [facility] for referral (narrative)* Diagnostic Procedure Only (Routine) - Closed Specialty Diagnoses / Procedures Referred By Contac t Referred To Contact XR IMAGING Diagnoses Chronic bilateral low back pain with bilateral sciatica Procedures XR LUMBAR GENERAL 3V AP/LAT/L5-S1 RADEX SPINE LUMBOSACRAL 2/3 VIEWS Rob Cardenas APRN.CANCER REGISTRAR [address] [place] [address] [place] [address] Referral ID Status Reason Start Date Expiration Date V isits Requested Visits Authorized [id number] Closed Auto-Generate d Referral 07/18/2022 08/17/2023 1 1 * Diagnostic Procedure Only (Routine) - Closed Specialty Diagnoses / Procedures Referred By Contac t Referred To Contact XR IMAGING Diagnoses Primary osteoarthritis of both knees Procedures XR KNEE GENERAL 4V AP BOTH/PA BOTH/LAT/MERC BILATERAL RADIOLOGIC EXAM KNEE COMPLETE 4/MORE VIEWS Rob Cardenas APRN.CANCER REGISTRAR [address] [place] [address] [place] [address] Referral ID Status Reason Start Date Expiration Date V isits Requested Visits Authorized [id number] Closed Auto-Generate d Referral 07/18/2022 08/17/[address] [facility] for referral (narrative)* Diagnostic Procedure Only (Routine) - New Request Specialty Diagnoses / Procedures Referred By Maulik t Referred To Contact XR IMAGING Diagnoses Left knee pain, unspecified chronicity Procedures XR KNEE GENERAL 4V AP BOTH/PA BOTH/LAT/MERC LEFT RADIOLOGIC EXAM KNEE COMPLETE 4/MORE VIEWS Belinda Jason PA-C [address] [place] [address] [place] [address] Referral ID Status Reason Start Date Expiration Date Visits Requested Visits Authorized [id number] New Request Auto-Generat ed Referral 05/23/[address] [facility] for referral (narrative)No reason for referral information availableWSt. [facility] Work Phone[facility] Narrative* Diagnostic Procedure Only (Routine) - Closed Specialty Diagnoses / Procedures Referred By Maulik fraire Referred To Contact [facility] Diagnoses Abnormal mammogram Procedures MOISE DIAGNOSTIC BILAT DIAGNOSTIC MAMMOGRAPHY COMPUTER-AIDED DETCJ BI Pepe Reyes MD [address] [place] [address] [facility] [address] [place] [address] Referral ID Status Reason Start Date Expiration Date V isits Requested Visits Authorized [id number] Closed Auto-Generate d Referral 12/21/2021 01/20/[address] [facility] for visit Narrative* Diagnostic Procedure Only (Routine) - Closed Specialty Diagnoses / Procedures Referred By Maulik fraire Referred To Contact [facility] Diagnoses Encounter for screening mammogram for breast cancer Procedures MOISE SCREENING W EDGAR SCREENING DIGITAL BREAST TOMOSYNTHESIS BI SCREENING MAMMOGRAPHY BI 2-VIEW BREAST INC CAD Pepe Reyes MD [address] [place] [address] [facility] [address] [facility] [place] [address] Referral ID Status Reason Start Date Expiration Date V isits Requested Visits Authorized [id number] Closed Auto-Generate d Referral 02/15/2023 03/16/[address] [facility] for visit Narrative* Diagnostic Procedure Only (Routine) - Closed Specialty Diagnoses / Procedures Referred By Contac t Referred To Contact XR IMAGING Diagnoses Chronic bilateral low back pain with bilateral sciatica Procedures XR LUMBAR GENERAL 3V AP/LAT/L5-S1 RADEX SPINE LUMBOSACRAL 2/3 VIEWS Rob Cardenas, [place].CANCER REGISTRAR [address] [place] [address] [place] [address] Referral ID Status Reason Start Date Expiration Date V isits Requested Visits Authorized [id number] Closed Auto-Generate d Referral 07/18/2022 08/17/[address] [facility] for visit Narrative* Diagnostic Procedure Only (Routine) - Closed Specialty Diagnoses / Procedures Referred By Contac t Referred To Contact XR IMAGING Diagnoses Left knee pain, unspecified chronicity Procedures XR KNEE GENERAL 4V AP BOTH/PA BOTH/LAT/MERC LEFT RADIOLOGIC EXAM KNEE COMPLETE 4/MORE VIEWS Vetovitz, Belinda, PA-C [address] [place] [address] [place] [address] Referral ID Status Reason Start Date Expiration Date V isits Requested Visits Authorized [id number] Closed Auto-Generate d Referral 04/23/2024 05/23/[address] [facility] for visit Narrative* Diagnostic Procedure Only (Routine) - Closed Specialty Diagnoses / Procedures Referred By Contac t Referred To Contact XR IMAGING Diagnoses Shoulder impingement Procedures XR SHOULDER [id number] AP/TRUE AP RIGHT RADEX SHOULDER COMPLETE MINIMUM 2 VIEWS Vetovitz, Belinda, PA-C [address] [place] [address] Phone: tel: fax: [place] [address] Referral ID Status Reason Start Date Expiration Date V isits Requested Visits Authorized [id number] Closed Auto-Generate d Referral 02/10/2025 03/12/2026 1 1 [facility] Advance Directives No Advanced Directives Records FoundDocuments on File Type Date Recorded 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 Advance Directive(s) 09/01/2020 9:12 AM Advance Directive(s) 08/25/2020 1:07 PM Advance Directive(s) 11/13/2018 8:17 AM Advance Directive(s) 10/30/2018 1:22 PM Documents on File Type Date Recorded 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 Advance Directive(s) 09/01/2020 9:12 AM Advance Directive(s) 08/25/2020 1:07 PM Advance Directive(s) 11/13/2018 8:17 AM Advance Directive(s) 10/30/2018 1:22 PM Advance Directive Response Recorded Date/ Time Living Will No May 26 9:09am Power of Head Of English No May 26, 2024 9:09am Living Will Yes September 16, 2024 12:51pm Power of Head Of English Yes September 16 12:51pm Name of Medical Power of Head Of English ARACELI GUDINO September 16, 2024 12:51pm Advance Directive Response Recorded Date/ Time Living Will Yes September 16, 2024 12:51pm Do you have a Healthcare Pow er of Head Of English? Yes September 16, 2024 12:51pm Name of Medical Power of Head Of English ARACELI GUDINO September 16, 2024 12:51pm Reason for Referral Specialty Diagnoses / Procedures Referred By Contac t Referred To Contact Pain Management Diagnoses Chronic bilateral low back pain with bilateral sciatica Procedures CONSULT TO PAIN MGT OFFICE/OUTPATIENT NEW HIGH MDM 60-74 MINUTES Pepe Reyes MD [address] [place] [address] Referral ID Status Reason Start Date Expiration Date Visits Requested Visits Authorized [id number] Pending Review PCP Requested Referral 10/27/2022 10/27/2023 1 1 Specialty Diagnoses / Procedures Referred By Contac t Referred To Contact CT IMAGING Diagnoses Encounter for screening for lung cancer Tobacco use current Procedures CT LUNG SCREEN WO IVCON COMPUTED TOMOGRAPHY THORAX LW DOSE LNG CA SCR C- Peterson Norton, CARDIOPULMONARY SPECIALIST.CANCER REGISTRAR [address] [place] [address] Ct Imaging Referral ID Status Reason Start Date Expiration Date Visits Requested Visits Authorized [id number] Authorized Auto-Generat ed Referral 11/01/2022 12/01/2023 1 1 Referral ID Status Reason Start Date Expiration Date Visits Requested Visits Authorized [id number] Pending Review Auto-Generat ed Referral 11/16/2023 12/15/2023 1 1 Specialty Diagnoses / Procedures Referred By Contac t Referred To Contact CT IMAGING Diagnoses Encounter for screening for lung cancer Tobacco use current Procedures CT LUNG SCREEN WO IVCON COMPUTED TOMOGRAPHY THORAX LW DOSE LNG CA [facility], CARDIOPULMONARY SPECIALIST.CANCER REGISTRAR [address] [place] [address] [place] [address] Referral ID Status Reason Start Date Expiration Date V isits Requested Visits Authorized [id number] Closed Auto-Generate d Referral 11/01/2022 12/01/2023 1 1 Specialty Diagnoses / Procedures Referred By Contac t Referred To Contact CT IMAGING Diagnoses Tobacco use current Procedures CT LUNG SCREEN WO IVCON COMPUTED TOMOGRAPHY THORAX LW DOSE LNG CA [facility], CARDIOPULMONARY SPECIALIST.CANCER REGISTRAR [address] [place] [address] [place] [address] Referral ID Status Reason Start Date Expiration Date Visits Requested Visits Authorized [id number] Authorized Auto-Generat ed Referral 11/20/2023 12/19/2024 1 1 Referral ID Status Reason Start Date Expiration Date V isits Requested Visits Authorized [id number] Closed Auto-Generate d Referral 11/16/2023 12/15/2023 1 1 Health Concerns Infection Onset Date Last Indicated Resolved Time COVID-19 Rule-Out 03/22/2023 03/22/2023 Chief Complaint and Reason for Visit Chief Complaint Admit Date abd pain May 26, 2024 7:37am Gastroesophageal reflux disease (GERD) D ecember 2023 1:36pm E-ORDER June 27, 2024 3:00pm INT [facility] June 28, 2024 8:16am COLITIS/DIARRHEA August 15, 2024 9:46am Reason for Visit Admit Date IBS (irritable bowel syndrome) June 27, 2024 1:36pm Diarrhea June 27, 2024 1:36pm Gastroesophageal reflux disease June 27, 2024 1:36pm IBS (irritable bowel syndrome) August 12:25pm Chief Complaint Admit Date COLITIS/DIARRHEA August 15, 2024 9:46am Abdominal pain September 17, 2024 8:0 0am follow up October 24, 2024 1:0 8pm Follow up everything is on fire November 142024 8:35am Reason for Visit Admit Date IBS (irritable bowel syndrome) August 12:25pm IBS (irritable bowel syndrome) October 1:08pm Diarrhea October 24, 2024 1:0 8pm Gastroesophageal reflux disease October 242024 1:08pm Chief Complaint Admit Date Abdominal pain September 17, 2024 8:0 0am follow up October 24, 2024 1:0 8pm Follow up everything is on fire November 142024 8:35am 5 wk FU December 19, 2024 8:37 am Reason for Visit Admit Date IBS (irritable bowel syndrome) August 12:25pm IBS (irritable bowel syndrome) October 1:08pm Diarrhea October 24, 2024 1:0 8pm Gastroesophageal reflux disease October 242024 1:08pm Gastritis, bile acid reflux November 14 8:35am IBS (irritable bowel syndrome) November 14, 2024 8:35am Summary Purpose Family History No Family History Records FoundNo Family History Records Found Additional Source Comments Source Comments (unrecognize d section and content) In the event this informatio n is protected by the Federal Confidentiality of Alcohol and Drug Abuse Patient Records regulations: The Federal rules restrict any use of the information to criminally investigate or prosecute any alcohol or drug abuse patient.[facility] the event this information is protected by the Federal Confidentiality of Alcohol and Drug Abuse Patient Records regulations: The Federal rules restrict any use of the information to criminally investigate or prosecute any alcohol or drug abuse patient.[facility] the event this information is protected by the Federal Confidentiality of Alcohol and Drug Abuse Patient Records regulations: The Federal rules restrict any use of the information to criminally investigate or prosecute any alcohol or drug abuse patient.[facility] the event this information is protected by the Federal Confidentiality of Alcohol and Drug Abuse Patient Records regulations: The Federal rules restrict any use of the information to criminally investigate or prosecute any alcohol or drug abuse patient.[facility] the event this information is protected by the Federal Confidentiality of Alcohol and Drug Abuse Patient Records regulations: The Federal rules restrict any use of the information to criminally investigate or prosecute any alcohol or drug abuse patient.[facility] the event this information is protected by the Federal Confidentiality of Alcohol and Drug Abuse Patient Records regulations: The Federal rules restrict any use of the information to criminally investigate or prosecute any alcohol or drug abuse patient.[facility] the event this information is protected by the Federal Confidentiality of Alcohol and Drug Abuse Patient Records regulations: The Federal rules restrict any use of the information to criminally investigate or prosecute any alcohol or drug abuse patient.[facility] the event this information is protected by the Federal Confidentiality of Alcohol and Drug Abuse Patient Records regulations: The Federal rules restrict any use of the information to criminally investigate or prosecute any alcohol or drug abuse patient.[facility] the event this information is protected by the Federal Confidentiality of Alcohol and Drug Abuse Patient Records regulations: The Federal rules restrict any use of the information to criminally investigate or prosecute any alcohol or drug abuse patient.[facility] the event this information is protected by the Federal Confidentiality of Alcohol and Drug Abuse Patient Records regulations: The Federal rules restrict any use of the information to criminally investigate or prosecute any alcohol or drug abuse patient.[facility] the event this information is protected by the Federal Confidentiality of Alcohol and Drug Abuse Patient Records regulations: The Federal rules restrict any use of the information to criminally investigate or prosecute any alcohol or drug abuse patient.[facility] the event this information is protected by the Federal Confidentiality of Alcohol and Drug Abuse Patient Records regulations: The Federal rules restrict any use of the information to criminally investigate or prosecute any alcohol or drug abuse patient.[facility] the event this information is protected by the Federal Confidentiality of Alcohol and Drug Abuse Patient Records regulations: The Federal rules restrict any use of the information to criminally investigate or prosecute any alcohol or drug abuse patient.[facility] the event this information is protected by the Federal Confidentiality of Alcohol and Drug Abuse Patient Records regulations: The Federal rules restrict any use of the information to criminally investigate or prosecute any alcohol or drug abuse patient.[facility] the event this information is protected by the Federal Confidentiality of Alcohol and Drug Abuse Patient Records regulations: The Federal rules restrict any use of the information to criminally investigate or prosecute any alcohol or drug abuse patient.[facility] the event this information is protected by the Federal Confidentiality of Alcohol and Drug Abuse Patient Records regulations: The Federal rules restrict any use of the information to criminally investigate or prosecute any alcohol or drug abuse patient.[facility] the event this information is protected by the Federal Confidentiality of Alcohol and Drug Abuse Patient Records regulations: The Federal rules restrict any use of the information to criminally investigate or prosecute any alcohol or drug abuse patient.[facility] the event this information is protected by the Federal Confidentiality of Alcohol and Drug Abuse Patient Records regulations: The Federal rules restrict any use of the information to criminally investigate or prosecute any alcohol or drug abuse patient.[facility] the event this information is protected by the Federal Confidentiality of Alcohol and Drug Abuse Patient Records regulations: The Federal rules restrict any use of the information to criminally investigate or prosecute any alcohol or drug abuse patient.[facility]In the event this information is protected by the Federal Confidentiality of Alcohol and Drug Abuse Patient Records regulations: The Federal rules restrict any use of the information to criminally investigate or prosecute any alcohol or drug abuse patient.[facility] the event this information is protected by the Federal Confidentiality of Alcohol and Drug Abuse Patient Records regulations: The Federal rules restrict any use of the information to criminally investigate or prosecute any alcohol or drug abuse patient.[facility] the event this information is protected by the Federal Confidentiality of Alcohol and Drug Abuse Patient Records regulations: The Federal rules restrict any use of the information to criminally investigate or prosecute any alcohol or drug abuse patient.[facility] the event this information is protected by the Federal Confidentiality of Alcohol and Drug Abuse Patient Records regulations: The Federal rules restrict any use of the information to criminally investigate or prosecute any alcohol or drug abuse patient.[facility] the event this information is protected by the Federal Confidentiality of Alcohol and Drug Abuse Patient Records regulations: The Federal rules restrict any use of the information to criminally investigate or prosecute any alcohol or drug abuse patient.[facility] the event this information is protected by the Federal Confidentiality of Alcohol and Drug Abuse Patient Records regulations: The Federal rules restrict any use of the information to criminally investigate or prosecute any alcohol or drug abuse patient.[facility] the event this information is protected by the Federal Confidentiality of Alcohol and Drug Abuse Patient Records regulations: The Federal rules restrict any use of the information to criminally investigate or prosecute any alcohol or drug abuse patient.[facility]In the event this information is protected by the Federal Confidentiality of Alcohol and Drug Abuse Patient Records regulations: The Federal rules restrict any use of the information to criminally investigate or prosecute any alcohol or drug abuse patient.[facility]In the event this information is protected by the Federal Confidentiality of Alcohol and Drug Abuse Patient Records regulations: The Federal rules restrict any use of the information to criminally investigate or prosecute any alcohol or drug abuse patient.[facility]In the event this information is protected by the Federal Confidentiality of Alcohol and Drug Abuse Patient Records regulations: The Federal rules restrict any use of the information to criminally investigate or prosecute any alcohol or drug abuse patient.[facility]In the event this information is protected by the Federal Confidentiality of Alcohol and Drug Abuse Patient Records regulations: The Federal rules restrict any use of the information to criminally investigate or prosecute any alcohol or drug abuse patient.[facility]In the event this information is protected by the Federal Confidentiality of Alcohol and Drug Abuse Patient Records regulations: The Federal rules restrict any use of the information to criminally investigate or prosecute any alcohol or drug abuse patient.[facility] HospitalIn the event this information is protected by the Federal Confidentiality of Alcohol and Drug Abuse Patient Records regulations: The Federal rules restrict any use of the information to criminally investigate or prosecute any alcohol or drug abuse patient.[facility] HospitalIn the event this information is protected by the Federal Confidentiality of Alcohol and Drug Abuse Patient Records regulations: The Federal rules restrict any use of the information to criminally investigate or prosecute any alcohol or drug abuse patient.[facility] HospitalIn the event this information is protected by the Federal Confidentiality of Alcohol and Drug Abuse Patient Records regulations: The Federal rules restrict any use of the information to criminally investigate or prosecute any alcohol or drug abuse patient.[facility] HospitalIn the event this information is protected by the Federal Confidentiality of Alcohol and Drug Abuse Patient Records regulations: The Federal rules restrict any use of the information to criminally investigate or prosecute any alcohol or drug abuse patient.[facility] HospitalIn the event this information is protected by the Federal Confidentiality of Alcohol and Drug Abuse Patient Records regulations: The Federal rules restrict any use of the information to criminally investigate or prosecute any alcohol or drug abuse patient.[facility] HospitalIn the event this information is protected by the Federal Confidentiality of Alcohol and Drug Abuse Patient Records regulations: The Federal rules restrict any use of the information to criminally investigate or prosecute any alcohol or drug abuse patient.[facility] HospitalIn the event this information is protected by the Federal Confidentiality of Alcohol and Drug Abuse Patient Records regulations: The Federal rules restrict any use of the information to criminally investigate or prosecute any alcohol or drug abuse patient.[facility] HospitalIn the event this information is protected by the Federal Confidentiality of Alcohol and Drug Abuse Patient Records regulations: The Federal rules restrict any use of the information to criminally investigate or prosecute any alcohol or drug abuse patient.[facility] HospitalIn the event this information is protected by the Federal Confidentiality of Alcohol and Drug Abuse Patient Records regulations: The Federal rules restrict any use of the information to criminally investigate or prosecute any alcohol or drug abuse patient.[facility] HospitalIn the event this information is protected by the Federal Confidentiality of Alcohol and Drug Abuse Patient Records regulations: The Federal rules restrict any use of the information to criminally investigate or prosecute any alcohol or drug abuse patient.[facility] HospitalIn the event this information is protected by the Federal Confidentiality of Alcohol and Drug Abuse Patient Records regulations: The Federal rules restrict any use of the information to criminally investigate or prosecute any alcohol or drug abuse patient.[facility] HospitalIn the event this information is protected by the Federal Confidentiality of Alcohol and Drug Abuse Patient Records regulations: The Federal rules restrict any use of the information to criminally investigate or prosecute any alcohol or drug abuse patient.[facility] HospitalIn the event this information is protected by the Federal Confidentiality of Alcohol and Drug Abuse Patient Records regulations: The Federal rules restrict any use of the information to criminally investigate or prosecute any alcohol or drug abuse patient.[facility] HospitalIn the event this information is protected by the Federal Confidentiality of Alcohol and Drug Abuse Patient Records regulations: The Federal rules restrict any use of the information to criminally investigate or prosecute any alcohol or drug abuse patient.[facility] HospitalIn the event this information is protected by the Federal Confidentiality of Alcohol and Drug Abuse Patient Records regulations: The Federal rules restrict any use of the information to criminally investigate or prosecute any alcohol or drug abuse patient.[facility] HospitalIn the event this information is protected by the Federal Confidentiality of Alcohol and Drug Abuse Patient Records regulations: The Federal rules restrict any use of the information to criminally investigate or prosecute any alcohol or drug abuse patient.[facility] HospitalIn the event this information is protected by the Federal Confidentiality of Alcohol and Drug Abuse Patient Records regulations: The Federal rules restrict any use of the information to criminally investigate or prosecute any alcohol or drug abuse patient.[facility] HospitalIn the event this information is protected by the Federal Confidentiality of Alcohol and Drug Abuse Patient Records regulations: The Federal rules restrict any use of the information to criminally investigate or prosecute any alcohol or drug abuse patient.[facility] HospitalIn the event this information is protected by the Federal Confidentiality of Alcohol and Drug Abuse Patient Records regulations: The Federal rules restrict any use of the information to criminally investigate or prosecute any alcohol or drug abuse patient.[facility] HospitalIn the event this information is protected by the Federal Confidentiality of Alcohol and Drug Abuse Patient Records regulations: The Federal rules restrict any use of the information to criminally investigate or prosecute any alcohol or drug abuse patient.[facility] HospitalIn the event this information is protected by the Federal Confidentiality of Alcohol and Drug Abuse Patient Records regulations: The Federal rules restrict any use of the information to criminally investigate or prosecute any alcohol or drug abuse patient.[facility] HospitalIn the event this information is protected by the Federal Confidentiality of Alcohol and Drug Abuse Patient Records regulations: The Federal rules restrict any use of the information to criminally investigate or prosecute any alcohol or drug abuse patient.[facility] HospitalIn the event this information is protected by the Federal Confidentiality of Alcohol and Drug Abuse Patient Records regulations: The Federal rules restrict any use of the information to criminally investigate or prosecute any alcohol or drug abuse patient.[facility] HospitalIn the event this information is protected by the Federal Confidentiality of Alcohol and Drug Abuse Patient Records regulations: The Federal rules restrict any use of the information to criminally investigate or prosecute any alcohol or drug abuse patient.[facility] HospitalIn the event this information is protected by the Federal Confidentiality of Alcohol and Drug Abuse Patient Records regulations: The Federal rules restrict any use of the information to criminally investigate or prosecute any alcohol or drug abuse patient.[facility] HospitalIn the event this information is protected by the Federal Confidentiality of Alcohol and Drug Abuse Patient Records regulations: The Federal rules restrict any use of the information to criminally investigate or prosecute any alcohol or drug abuse patient.[facility] HospitalIn the event this information is protected by the Federal Confidentiality of Alcohol and Drug Abuse Patient Records regulations: The Federal rules restrict any use of the information to criminally investigate or prosecute any alcohol or drug abuse patient.[facility] HospitalIn the event this information is protected by the Federal Confidentiality of Alcohol and Drug Abuse Patient Records regulations: The Federal rules restrict any use of the information to criminally investigate or prosecute any alcohol or drug abuse patient.[facility] HospitalIn the event this information is protected by the Federal Confidentiality of Alcohol and Drug Abuse Patient Records regulations: The Federal rules restrict any use of the information to criminally investigate or prosecute any alcohol or drug abuse patient.[facility] HospitalIn the event this information is protected by the Federal Confidentiality of Alcohol and Drug Abuse Patient Records regulations: The Federal rules restrict any use of the information to criminally investigate or prosecute any alcohol or drug abuse patient.[facility] HospitalIn the event this information is protected by the Federal Confidentiality of Alcohol and Drug Abuse Patient Records regulations: The Federal rules restrict any use of the information to criminally investigate or prosecute any alcohol or drug abuse patient.[facility] HospitalIn the event this information is protected by the Federal Confidentiality of Alcohol and Drug Abuse Patient Records regulations: The Federal rules restrict any use of the information to criminally investigate or prosecute any alcohol or drug abuse patient.[facility] HospitalIn the event this information is protected by the Federal Confidentiality of Alcohol and Drug Abuse Patient Records regulations: The Federal rules restrict any use of the information to criminally investigate or prosecute any alcohol or drug abuse patient.[facility] HospitalIn the event this information is protected by the Federal Confidentiality of Alcohol and Drug Abuse Patient Records regulations: The Federal rules restrict any use of the information to criminally investigate or prosecute any alcohol or drug abuse patient.[facility] HospitalIn the event this information is protected by the Federal Confidentiality of Alcohol and Drug Abuse Patient Records regulations: The Federal rules restrict any use of the information to criminally investigate or prosecute any alcohol or drug abuse patient.[facility] HospitalIn the event this information is protected by the Federal Confidentiality of Alcohol and Drug Abuse Patient Records regulations: The Federal rules restrict any use of the information to criminally investigate or prosecute any alcohol or drug abuse patient.[facility] HospitalIn the event this information is protected by the Federal Confidentiality of Alcohol and Drug Abuse Patient Records regulations: The Federal rules restrict any use of the information to criminally investigate or prosecute any alcohol or drug abuse patient.[facility] HospitalIn the event this information is protected by the Federal Confidentiality of Alcohol and Drug Abuse Patient Records regulations: The Federal rules restrict any use of the information to criminally investigate or prosecute any alcohol or drug abuse patient.[facility] HospitalIn the event this information is protected by the Federal Confidentiality of Alcohol and Drug Abuse Patient Records regulations: The Federal rules restrict any use of the information to criminally investigate or prosecute any alcohol or drug abuse patient.[facility] HospitalIn the event this information is protected by the Federal Confidentiality of Alcohol and Drug Abuse Patient Records regulations: The Federal rules restrict any use of the information to criminally investigate or prosecute any alcohol or drug abuse patient.[facility] HospitalIn the event this information is protected by the Federal Confidentiality of Alcohol and Drug Abuse Patient Records regulations: The Federal rules restrict any use of the information to criminally investigate or prosecute any alcohol or drug abuse patient.[facility] HospitalIn the event this information is protected by the Federal Confidentiality of Alcohol and Drug Abuse Patient Records regulations: The Federal rules restrict any use of the information to criminally investigate or prosecute any alcohol or drug abuse patient.[facility] HospitalIn the event this information is protected by the Federal Confidentiality of Alcohol and Drug Abuse Patient Records regulations: The Federal rules restrict any use of the information to criminally investigate or prosecute any alcohol or drug abuse patient.[facility] HospitalIn the event this information is protected by the Federal Confidentiality of Alcohol and Drug Abuse Patient Records regulations: The Federal rules restrict any use of the information to criminally investigate or prosecute any alcohol or drug abuse patient.[facility] HospitalIn the event this information is protected by the Federal Confidentiality of Alcohol and Drug Abuse Patient Records regulations: The Federal rules restrict any use of the information to criminally investigate or prosecute any alcohol or drug abuse patient.[facility] HospitalIn the event this information is protected by the Federal Confidentiality of Alcohol and Drug Abuse Patient Records regulations: The Federal rules restrict any use of the information to criminally investigate or prosecute any alcohol or drug abuse patient.[facility] HospitalIn the event this information is protected by the Federal Confidentiality of Alcohol and Drug Abuse Patient Records regulations: The Federal rules restrict any use of the information to criminally investigate or prosecute any alcohol or drug abuse patient.[facility] HospitalIn the event this information is protected by the Federal Confidentiality of Alcohol and Drug Abuse Patient Records regulations: The Federal rules restrict any use of the information to criminally investigate or prosecute any alcohol or drug abuse patient.[facility] HospitalIn the event this information is protected by the Federal Confidentiality of Alcohol and Drug Abuse Patient Records regulations: The Federal rules restrict any use of the information to criminally investigate or prosecute any alcohol or drug abuse patient.[facility] HospitalIn the event this information is protected by the Federal Confidentiality of Alcohol and Drug Abuse Patient Records regulations: The Federal rules restrict any use of the information to criminally investigate or prosecute any alcohol or drug abuse patient.[facility] HospitalIn the event this information is protected by the Federal Confidentiality of Alcohol and Drug Abuse Patient Records regulations: The Federal rules restrict any use of the information to criminally investigate or prosecute any alcohol or drug abuse patient.[facility] HospitalIn the event this information is protected by the Federal Confidentiality of Alcohol and Drug Abuse Patient Records regulations: The Federal rules restrict any use of the information to criminally investigate or prosecute any alcohol or drug abuse patient.[facility] HospitalIn the event this information is protected by the Federal Confidentiality of Alcohol and Drug Abuse Patient Records regulations: The Federal rules restrict any use of the information to criminally investigate or prosecute any alcohol or drug abuse patient.[facility] Reason for Visit (unrecogniz ed section and content) Reason Comments Radiology CT Specialty Diagnoses / Procedures Referred By Contkatrin Referred To Contact CT IMAGING Diagnoses Encounter for screening for lung cancer Tobacco use current Procedures CT LUNG SCREEN WO IVCON COMPUTED TOMOGRAPHY THORAX LW DOSE LNG CA SCR Kayode- Peterson Norton, [place].CANCER REGISTRAR [address] [place] [address] Ct Imaging [id number] Referral ID Status Reason Start Date Expiration Date V isits Requested Visits Authorized [id number] Closed Auto-Generate d Referral 11/16/2023 12/15/2023 1 1 Reason Comments Established Patient LCS Reason Comments Cough Nasal Congestion Reason Comments Results Reason Comments Spirometry Specialty Diagnoses / Procedures Referred By Contac t Referred To Contact [facility] Diagnoses Cough Procedures SPIROMETRY - BASELINE AND POST DILATOR BRNCDILAT RSPSE SPMTRY PRE&POST-BRNCDILAT ADMN Rob Cardenas, CARDIOPULMONARY SPECIALIST.CANCER REGISTRAR [address] [place] [address] [facility] [address] [place] [address] Referral ID Status Reason Start Date Expiration Date V isits Requested Visits Authorized [id number] Closed Auto-Generate d Referral 10/25/2021 11/10/2022 1 1 Reason Onset Date Comments Population Health Navigation Outreach 11/08/2021 [employer] Reason Comments Orders Reason Comments Radiology Mammogram Specialty Diagnoses / Procedures Referred By Maulik t Referred To Contact [facility] Diagnoses Encounter for screening mammogram for breast cancer Procedures MOISE SCREENING SCREENING MAMMOGRAPHY BI 2-VIEW BREAST INC Pepe Valentin MD [address] [place] [address] [facility] [address] [place] [address] Referral ID Status Reason Start Date Expiration Date Visits Requested Visits Authorized [id number] Authorized Auto-Generat ed Referral 10/13/2021 11/12/2022 1 1 Reason Comments Orders Reason Comments F/U 6 Month Reason Onset Date Comments Refill Request 03/08/2022 Reason Comments Cough Cough, sinus, chest congestion and dizzy x 1 week Reason Onset Date Comments Refill Request 07/11/2022 Reason Comments GERD Flair up Medication Problem Stopped taking terbi nafine, gas and bowel movements bad odor Reason Comments 6 Month Exam Reason Comments Acute Visit Ear pain intermitten t with sinusitis & fatigue x 1 month Reason Comments Established Patient Pain Reason Comments Appointment Returning patient Reason Comments Acute Visit URI Reason Comments Follow Up For Bronchitis; not rese solved after medication [place] Reason Comments New Patient LCS Reason Comments Results Reason Comments Pain Pt reported swollen painful area (RT) finger x1 day. Reason Comments 6 Month Exam Reason Comments Sinus Problem Chest congestion, ana dy aches, cough x 4 days Referral ID Status Reason Start Date Expiration Date V isits Requested Visits Authorized [id number] Closed Auto-Generate d Referral 11/01/2022 12/01/2023 1 1 Reason Comments Refill Request Reason Comments Acute Visit Reason Comments Results Covid/Flu/RSV Reason Comments Results Labs Reason Comments Ear Pain SHANDRA ears; RIGHT wors e x 1 week Reason Onset Date Comments Refill Request 01/08/2024 Reason Comments Insurance Authorization Reason Comments Nasal Congestion With chest congestio n x1 moHead congestion starting Monday Reason Onset Date Comments Refill Request 04/15/2024 Reason Comments bee sting right forearm Red x 3 days Reason Onset Date Comments Refill Request 05/13/2024 Reason Comments Acute Visit right ear pain Reason Onset Date Comments ACM REJI RN 06/04/2024 ED utilizatio n review per request of payor Reason Comments ED Follow-up Abdominal pain Reason Onset Date Comments Refill Request 07/29/2024 Reason Comments Follow Up Knee Pain Follow Up 20 weeks post visit OA bilateral knees with injections given Knee Pain 20 weeks post visit OA bilateral knees with injections given Reason Comments Established Patient Injections Specialty Diagnoses / Procedures Referred By Contac t Referred To Contact ORTHOPAEDIC SURGERY Diagnoses Bilateral primary osteoarthritis of knee Procedures EUFLEXXA INJ PER DOSE HYALURONAN OR DERIVATIVE, DUROLANE, FOR INTRA-ARTICULAR INJECTION, 1 MG EUFLEXXA OR PAYOR PREFERRED Belinda Jason PA-C [address] [place] [address] Phone: tel: Orthopa[facility]ics [address] [place] [address] Phone: tel: fax: Referral ID Status Reason Start Date Expiration Date V isits Requested Visits Authorized [id number] Authorized 10/09/2024 07/02/2025 99 99 Reason Onset Date Comments Refill Request 11/07/2024 Reason Comments Follow Up Reason Onset Date Comments Population Health Navigation Outreach 12/03/2024 [employer] Errol Reason Comments Insect Bite X 4 days on left grover e of nose Reason Comments Patient Update Reason Onset Date Comments Refill Request 01/27/2025 Reason Comments Follow Up Reason Comments Cough X10 days, no relief with albuterol inhaler Reason Onset Date Comments 6 Month Exam Immunizations 03/18/2025 Flu vaccination Care Teams (unrecognized sec tion and content) Team Status: Active Member Role Status Dates Dr. Pepe Reyes MD Primary Care Provider Active Team Status: Active Member Role Status Dates Dr. Pepe Reyes MD Primary Care Provider Active Start: September 17, 2024 Dr. Prem Maldonado MD Attending Provider Active Start: September 17, 2024 Dr. Prem Maldonado MD Referring Provider Active Start: September 17, 2024 Team Status: Inactive Member Role Status Dates Dr. Pepe Reyes MD Primary Care Provider Active Start: September 17, 2024 End: September 17, 2024 Dr. Pepe Reyes MD Referring Provider Active Start: September 17, 2024 End: September 17, 2024 Dr. Chucky Woodall DO Attending Provider Active Start: September 17, 2024 End: September 17, 2024 Team Status: Active Member Role Status Dates Dr. Pepe Reyes MD Primary Care Provider Active Start: September 17, 2024 Dr. Pepe Reyes MD Referring Provider Active Start: September 17, 2024 Dr. Chucky Woodall DO Attending Provider Active Start: September 17, 2024 Dr. Chucky Woodall DO Other Provider Active St art: September 17, 2024 Team Status: Inactive Member Role Status Dates Dr. Pepe Reyes MD Primary Care Provider Active Start: October 24, 2024 End: October 24, 2024 Dr. Pepe Reyes MD Referring Provider Active Start: October 24, 2024 End: October 24, 2024 Dr. Chucky Woodall DO Attending Provider Active Start: October 24, 2024 End: October 24, 2024 Team Status: Inactive Member Role Status Dates Dr. Pepe Reyes MD Primary Care Provider Active Start: November 14, 2024 End: November 14, 2024 Dr. Pepe Reyes MD Referring Provider Active Start: November 14, 2024 End: November 14, 2024 RYAN Alaniz Attending Provider Active S tart: November 14, 2024 End: November 14, 2024 Team Status: Inactive Member Role Status Dates Dr. Pepe Reyes MD Primary Care Provider Active Start: December 19, 2024 End: December 19, 2024 Dr. Pepe Reyes MD Referring Provider Active Start: December 19, 2024 End: December 19, 2024 RYAN Alaniz Attending Provider Active S tart: December 19, 2024 End: December 19, 2024 Chief Cook Relationship Specialty Start Date End Date Pepe Reyes MD [address] [place] [address] PCP - General Family Practice 12/09/11 Chief Cook Relationship Specialty Start Date End Date Pepe Reyes MD [address] [facility] [place] [address] PCP - General Family Practice 12/09/11 Chief Cook Relationship Specialty Start Date End Date Pepe Reyes MD [address] [facility] [place] [address] PCP - General Family Practice 12/09/11 Chief Cook Relationship Specialty Start Date End Date Pepe Reyes MD [address] [facility] [place] [address] PCP - General Family Practice 12/09/11 Chief Cook Relationship Specialty Start Date End Date Pepe Reyes MD [address] [facility] [place] [address] PCP - General Family Practice 12/09/11 Chief Cook Relationship Specialty Start Date End Date Pepe Reyes MD [address] [facility] [place] [address] PCP - General Family Practice 12/09/11 Chief Cook Relationship Specialty Start Date End Date Pepe Reyes MD [address] [facility] [place] [address] PCP - General Family Practice 12/09/11 Chief Cook Relationship Specialty Start Date End Date Pepe Reyes MD [address] [facility] [place] [address] PCP - General Family Practice 12/09/11 Chief Cook Relationship Specialty Start Date End Date Pepe Reyes MD [address] [facility] [place] [address] PCP - General Family Practice 12/09/11 Chief Cook Relationship Specialty Start Date End Date Pepe Reyes MD [address] [facility] [place] [address] PCP - General Family Medicine 12/09/11 Chief Cook Relationship Specialty Start Date End Date Pepe Reyes MD [address] [facility] [place] [address] PCP - General Family Medicine 12/09/11 Chief Cook Relationship Specialty Start Date End Date Pepe Reyes MD [address] [facility] [place] [address] PCP - General Family Medicine 12/09/11 Chief Cook Relationship Specialty Start Date End Date Pepe Reyes MD [address] [facility] [place] [address] PCP - General Family Medicine 12/09/11 Chief Cook Relationship Specialty Start Date End Date Pepe Reyes MD [address] [facility] [place] [address] PCP - General Family Medicine 12/09/11 Chief Cook Relationship Specialty Start Date End Date Pepe Reyes MD [address] [facility] [place] [address] PCP - General Family Medicine 12/09/11 Chief Cook Relationship Specialty Start Date End Date Pepe Reyes MD [address] [facility] [place] [address] PCP - General Family Medicine 12/09/11 Chief Cook Relationship Specialty Start Date End Date Pepe Reyes MD [address] [facility] [place] [address] PCP - General Family Medicine 12/09/11 Chief Cook Relationship Specialty Start Date End Date Pepe Reyes MD [address] [facility] [place] [address] PCP - General Family Medicine 12/09/11 Chief Cook Relationship Specialty Start Date End Date Pepe Reyes MD [address] [facility] [place] [address] PCP - General Family Medicine 12/09/11 Chief Cook Relationship Specialty Start Date End Date Pepe Reyes MD [address] [place] [address] PCP - General Family Medicine 12/09/11 Chief Cook Relationship Specialty Start Date End Date Pepe Reyes MD [address] [place] [address] PCP - General Family Medicine 12/09/11 Chief Cook Relationship Specialty Start Date End Date Pepe Reyes MD [address] [place] [address] PCP - General Family Medicine 12/09/11 Chief Cook Relationship Specialty Start Date End Date Pepe Reyes MD [address] [place] [address] PCP - General Family Medicine 12/09/11 Chief Cook Relationship Specialty Start Date End Date Pepe Reyes MD [address] [place] [address] PCP - General Family Medicine 12/09/11 Chief Cook Relationship Specialty Start Date End Date Pepe Reyes MD [address] [place] [address] PCP - General Family Medicine 12/09/11 Chief Cook Relationship Specialty Start Date End Date Pepe Reyes MD [address] [place] [address] PCP - General Family Medicine 12/09/11 Chief Cook Relationship Specialty Start Date End Date Pepe Reyes MD [address] [place] [address] PCP - General Family Medicine 12/09/11 Chief Cook Relationship Specialty Start Date End Date Pepe Reyes MD [address] [facility] [place] [address] PCP - General Family Medicine 12/09/11 Chief Cook Relationship Specialty Start Date End Date Pepe Reyes MD [address] [facility] [place] [address] PCP - General Family Medicine 12/09/11 Chief Cook Relationship Specialty Start Date End Date Pepe Reyes MD [address] [place] [address] PCP - General Family Medicine 12/09/11 Chief Cook Relationship Specialty Start Date End Date Pepe Reyes MD [address] [place] [address] PCP - General Family Medicine 12/09/11 Chief Cook Relationship Specialty Start Date End Date Pepe Reyes MD [address] [facility] [place] [address] PCP - General Family Medicine 12/09/11 Chief Cook Relationship Specialty Start Date End Date Pepe Reyes MD [address] [facility] [place] [address] PCP - General Family Medicine 12/09/11 Chief Cook Relationship Specialty Start Date End Date Pepe Reyes MD [address] [facility] [place] [address] PCP - General Family Medicine 12/09/11 Chief Cook Relationship Specialty Start Date End Date Pepe Reyes MD [address] [facility] [place] [address] PCP - General Family Medicine 12/09/11 Chief Cook Relationship Specialty Start Date End Date Pepe Reyes MD [address] [facility] [place] [address] PCP - General Family Medicine 12/09/11 Chief Cook Relationship Specialty Start Date End Date Pepe Reyes MD [address] [facility] [place] [address] PCP - General Family Medicine 12/09/11 Chief Cook Relationship Specialty Start Date End Date Pepe Reyes MD [address] [facility] [place] [address] PCP - General Family Medicine 12/09/11 Chief Cook Relationship Specialty Start Date End Date Pepe Reyes MD [address] [facility] [place] [address] PCP - General Family Medicine 12/09/11 Chief Cook Relationship Specialty Start Date End Date Pepe Reyes MD [address] [facility] [place] [address] PCP - General Family Medicine 12/09/11 Chief Cook Relationship Specialty Start Date End Date Pepe Reyes MD [address] [facility] [place] [address] PCP - General Family Medicine 12/09/11 Chief Cook Relationship Specialty Start Date End Date Pepe Reyes MD [address] [facility] [place] [address] PCP - General Family Medicine 12/09/11 Chief Cook Relationship Specialty Start Date End Date Pepe Reyes MD [address] [place] [address] PCP - General Family Medicine 12/09/11 Chief Cook Relationship Specialty Start Date End Date Pepe Reyes MD [address] [place] [address] PCP - General Family Medicine 12/09/11 Chief Cook Relationship Specialty Start Date End Date Pepe Reyes MD [address] [place] [address] PCP - General Family Medicine 12/09/11 Chief Cook Relationship Specialty Start Date End Date Pepe Reyes MD [address] [place] [address] PCP - General Family Medicine 12/09/11 Elise Crocker, CARDIOPULMONARY SPECIALIST.CANCER REGISTRAR [address] [place] [address] [employer]oultry Feed Supervisor Family Medicine 06/09/24 Chief Cook Relationship Specialty Start Date End Date Pepe Reyes MD [address] [place] [address] PCP - General Family Medicine 12/09/11 Elise Crocker, CARDIOPULMONARY SPECIALIST.CANCER REGISTRAR [address] [place] [address] [employer] Feed Supervisor Family Medicine 06/09/24 Rob Cardenas CARDIOPULMONARY SPECIALIST.CANCER REGISTRAR [address] [place] [address] [employer]oultry Feed Supervisor Family Medicine 06/18/24 Chief Cook Relationship Specialty Start Date End Date Pepe Reyes MD [address] [place], [place] [address] PCP - General Family Medicine 12/09/11 Elise Crocker APRN.CANCER REGISTRAR [address] [place], [place] [address] [facility] 06/09/24 Rob Cardenas APRN.CANCER REGISTRAR [address] [place], [place] [id number] [facility] 06/18/24 Team Status: Inactive Member Role Status Dates Dr. Pepe Reyes MD Primary Care Provider Active Start: May 26, 2024 End: May 26, 2024 Dr. Yas Winchester DO Attending Provider Active Start: May 26, 2024 End: May 26, 2024 Dr. Yas Winchester DO Emergency Provider Active Start: May 26, 2024 End: May 26, 2024 Team Status: Inactive Member Role Status Dates Dr. Pepe Reyes MD Primary Care Provider Active Start: June 27, 2024 End: June 27, 2024 Dr. Pepe Reyes MD Referring Provider Active Start: June 27, 2024 End: June 27, 2024 Dr. Chucky Woodall DO Attending Provider Active Start: June 27, 2024 End: June 27, 2024 Team Status: Inactive Member Role Status Dates Dr. Pepe Reyes MD Primary Care Provider Active Start: June 27, 2024 End: June 27, 2024 Dr. Chucky Woodall DO Attending Provider Active Start: June 27, 2024 End: June 27, 2024 Dr. Chucky Woodall DO Referring Provider Active Start: June 27, 2024 End: June 27, 2024 Team Status: Inactive Member Role Status Dates Dr. Pepe Reyes MD Primary Care Provider Active Start: June 28, 2024 End: June 28, 2024 Dr. Chucky Woodall DO Attending Provider Active Start: June 28, 2024 End: June 28, 2024 Dr. Chucky Woodall DO Referring Provider Active Start: June 28, 2024 End: June 28, 2024 Team Status: Inactive Member Role Status Dates Dr. Pepe Reyes MD Primary Care Provider Active Start: August 15, 2024 End: August 15, 2024 Dr. Chucky Woodall DO Attending Provider Active Start: August 15, 2024 End: August 15, 2024 Dr. Chucky Woodall DO Referring Provider Active Start: August 15, 2024 End: August 15, 2024 Chief Cook Relationship Specialty Start Date End Date Pepe Reyes MD [address] [facility] [place] [address] PCP - General Family Medicine 12/09/11 Elise Crocker APRN.CANCER REGISTRAR [address] [place] [address] [employer] Feed Supervisor Family Medicine 06/09/24 Rob Cardenas APRN.CANCER REGISTRAR [address] [facility] [place] [address] [employer] Feed Supervisor Family Medicine 06/18/24 Chief Cook Relationship Specialty Start Date End Date Pepe Reyes MD [address] [facility] [place] [address] PCP - General Family Medicine 12/09/11 Elise Crocker APRN.CANCER REGISTRAR [address] [facility] [place] [address] Poultry Feed Supervisor Family Medicine 06/09/24 Rob Cardenas APRN.CANCER REGISTRAR [address] [facility] [place] [address] Poultry Feed Supervisor Family Medicine 06/18/24 Chief Cook Relationship Specialty Start Date End Date Pepe Reyes MD [address] [facility] [place] [address] PCP - General Family Medicine 12/09/11 Elise Crocker APRN.CANCER REGISTRAR [address] [place] [address] [employer]oultry Feed Supervisor Family Medicine 06/09/24 Rob Cardenas APRN.CANCER REGISTRAR [address] [place] [address] [employer] Feed Supervisor Family Medicine 06/18/24 Chief Cook Relationship Specialty Start Date End Date Pepe Reyes MD [address] [place] [address] PCP - General Family Medicine 12/09/11 Rob Cardenas APRN.CANCER REGISTRAR [address] [place] [address] [employer] Feed Supervisor Family Medicine 06/18/24 Chief Cook Relationship Specialty Start Date End Date Pepe Reyes MD [address] [place] [address] PCP - General Family Medicine 12/09/11 Rob Cardenas CARDIOPULMONARY SPECIALIST.CANCER REGISTRAR [address] [place] [address] [employer]oultry Feed Supervisor Family Medicine 06/18/24 Chief Cook Relationship Specialty Start Date End Date Pepe Reyes MD [address] [facility] [place] [address] PCP - General Family Medicine 12/09/11 Rob Cardenas APRN.CANCER REGISTRAR [address] [place] [address] Poultry Feed Supervisor Family [facility] 06/18/24 Chief Cook Relationship Specialty Start Date End Date Pepe Reyes MD [address] [place] [address] PCP - General Family Medicine 12/09/11 Rob Cardenas APRN.CANCER REGISTRAR [address] [place] [address] Poultry Feed Supervisor [facility] 06/18/24 Chief Cook Relationship Specialty Start Date End Date Pepe Reyes MD [address] [place] [address] PCP - General Family Medicine 12/09/11 Rob Cardenas APRN.CANCER REGISTRAR [address] [place] [address] Poultry Feed Supervisor [facility] 06/18/24 Chief Cook Relationship Specialty Start Date End Date Pepe Reyes MD [address] [place] [address] PCP - General Family Medicine 12/09/11 Rob Cardenas CARDIOPULMONARY SPECIALIST.CANCER REGISTRAR [address] [place] [address] Poultry Feed Supervisor [facility] 06/18/24 Chief Cook Relationship Specialty Start Date End Date Pepe Reyes MD [address] [place] [address] PCP - General Family Medicine 12/09/11 Rob Cardenas APRN.CANCER REGISTRAR [address] [place] [address] [facility] Chief Cook Relationship Specialty Start Date End Date Pepe Reyes MD [address] [place], [place] [address] PCP - General Family Medicine 12/09/11 Rob Cardenas APRN.CANCER REGISTRAR [address] [place], [place] [address] [facility] 06/18/24 Chief Cook Relationship Specialty Start Date End Date Pepe Reyes MD [address] [place], [place] [address] PCP - General Family [facility] 12/09/11 Rob Cardenas APRN.CANCER REGISTRAR [address] [place], [place] [address] [facility] 06/18/24 INFORMATION SOURCE (unrecogn ized section and content) DATE CREATED AUTHOR 05/11/2025 [facility] DATE CREATED AUTHOR AUTHOR'S LUIZ ANGELA 05/16/2025 [facility] FOR RECORDS PERTAINING TO PATIENTS WHO ARE OR HAVE BEEN ENROLLED IN A CHEMICAL DEPENDENCY/SUBSTANCEABUSE PROGRAM, SOME INFORMATION MAY BE OMITTED. This clinical summary was aggregated from multiple sources. Caution should be exercised in using it in the provision of clinical care. This summary normalizes information from multiple sources, and as a consequence, information in this document may materially change the coding, format and clinical context of patient data. In addition, data may be omitted in some cases. CLINICAL DECISIONS SHOULD BE BASED ON THE PRIMARY CLINICAL RECORDS. [employer] provides no warranty or guarantee of the accuracy or completeness of information in this document.
[2025-06-23] MEDS: Lactated Ringers 1,000 ML 15 ML IV (06:04)
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
--- NOTE | 2025-06-23 06:37 | PCM.HP.STD ---
HPI - General General Date of Admission: 06/23/25 Date of Service: 06/23/25 Chief Complaint: Abdominal pain, bloating and diarrhea HPI Narrative ROMAN KUHN, is a 74 F who presents [Chief Complaint: Abdominal pressure/bloating with constipation, followed by loose stools/shanell Details: This is a 74-year-old female presenting with gastrointestinal symptoms. Reports an episode of significant abdominal pressure and burning, with inability to pass gas and progressive bloating (?like a balloon?). Went to the emergency room and received medication that helped somewhat the first evening. Since then, used sucralfate (Carafate) liquid intermittently with mild benefit and also used Rolaids (per her grid paper guidance) up to twice. Became frustrated with lack of bowel movements and took two Dulcolax on Monday, then used two doses of sucralfate; by Monday began to have bowel movements and felt fully cleaned out, noting increased passage of gas (burping and farting). She currently describes stools as soft but limited amounts; subsequently developed loose stools/diarrhea, going three times in one morning. Considered but did not take loperamide (Imodium). States ongoing variability: at times minimal soft stool, later diarrhea; as of the visit, stools described as ?kind of loose.? Reports taking famotidine (Pepcid) at night per prior instruction. States prior use of Miralax in the morning with fiber (?Metafiber?), and on the day before Thanksgi took additional Miralax due to pressure. Notes trial of ?Zenwise? for two weeks, after which she noticed cramping and decreased bowel movements; she stopped it and restarted supplements from the chiropractor kept in the fridge (unclear specific product). She mentions chronic back pain (baseline). Denies fevers and cough during the ER episode. Reports feeling cold at night. Has a history of gastroesophageal reflux disease (GERD) that worsened since 2019; previously had testing and was told she has GERD. Expresses desire to reschedule a colonoscopy; previously unable to finish a prior prep. [facility] Medical History Hypothyroid Thyroid disease Arthritis High cholesterol History of IBS Smoker History of stress test IBS (irritable bowel syndrome) GERD (gastroesophageal reflux disease) Home Medications ?Medication ?Instructions ?Recorded ?Last Taken ?Type levothyroxine 112 mcg capsule 112 mcg PO QDAY 06/27/24 Unknown History pravastatin 40 mg tablet 40 mg PO QDAY 06/27/24 Unknown History colestipol 1 gram tablet 1 g PO BID #60 tabs 11/14/24 Unknown Rx famotidine 40 mg tablet 40 mg PO QHS #90 tabs 11/14/24 Unknown Rx pantoprazole 40 mg tablet,delayed 40 mg PO BID #180 tabs 11/14/24 Unknown Rx release probiotic 2 tsp PO TID 06/02/25 Unknown History Allergy/AdvReac Type Severity Reaction Status Date / Time citalopram (From Celexa) Allergy Unknown PT UNSURE Verified 06/23/25 05:54 OF REACTION clarithromycin (From Biaxin) Allergy Unknown PT UNABLE Verified 06/23/25 05:54 TO RESPOND-NEEDS F/U sulfamethoxazole (From Allergy Unknown PT UNSURE Verified 06/23/25 05:54 Bactrim) OF REACTION trimethoprim (From Bactrim) Allergy Unknown PT UNSURE Verified 06/23/25 05:54 OF REACTION atorvastatin (From Lipitor) Allergy PT UNSURE Verified 06/23/25 05:54 OF REACTION cefixime (From Suprax) Allergy PT UNABLE Verified 06/23/25 05:54 TO RESPOND-NEEDS F/U chlorzoxazone (From Parafon Allergy PT UNSURE Verified 06/23/25 05:54 Forte) OF REACTION ciprofloxacin (From Cipro) Allergy PT UNABLE Verified 06/23/25 05:54 TO RESPOND-NEEDS F/U diclofenac (From Voltaren) Allergy PT UNABLE Verified 06/23/25 05:54 TO RESPOND-NEEDS F/U flavoxate (From Urispas) Allergy PT UNABLE Verified 06/23/25 05:54 TO RESPOND-NEEDS F/U guaifenesin (From Entex LA) Allergy PT UNABLE Verified 06/23/25 05:54 TO RESPOND-NEEDS F/U hyoscyamine (From Levsinex) Allergy PT UNSURE Verified 06/23/25 05:54 OF REACTION moxifloxacin (From Avelox) Allergy PT UNSURE Verified 06/23/25 05:54 OF REACTION paroxetine (From Paxil) Allergy PT UNSURE Verified 06/23/25 05:54 OF REACTION phenylephrine (From Entex LA) Allergy PT UNABLE Verified 06/23/25 05:54 TO RESPOND-NEEDS F/U phenylpropanolamine (From Allergy PT UNABLE Verified 06/23/25 05:54 Entex LA) TO RESPOND-NEEDS F/U Sulfa (Sulfonamide Allergy PT UNABLE Verified 06/23/25 05:54 Antibiotics) TO RESPOND-NEEDS F/U Surgical History History of colonoscopy History of esophagogastroduodenoscopy (EGD) Status post panniculectomy (~1980) History of cholecystectomy History of partial hysterectomy Social History Smoking Status: Current every day smoker tobacco type: cigarettes ROS Constitutional Constitutional: Denies fatigue, fever(s), poor appetite, weight gain or weight loss Gastrointestinal Gastrointestinal: Denies belching, bloating, change in bowel habits, change in stool character, chewing difficulty, coffee ground emesis, constipation, cramping, diarrhea, dyspepsia, dysphagia, early satiety, excessive flatus, fecal incontinence, heartburn, hematemesis, hematochezia, hemorrhoids, loose stools, melena, nausea, odynophagia, rectal bleeding, tenesmus, vomiting or weight changes Patient's Goals Of Care . What would you like to achieve or improve as a result of your hospital stay?: none Vital Signs Vital Signs Vital Signs: 06/23/25 05:55 06/23/25 05:55 06/23/25 05:55 Temperature 98.7 F Temperature Source Temporal Pulse Rate 92 Respiratory Rate 16 Respiratory Pattern Normal Blood Pressure 113/62 Blood Pressure Mean 79 Blood Pressure Source Monitor Blood Pressure Position Semi-Fowlers Blood Pressure Location Left Arm Baseline BP 113/62 Pulse Ox 97 Oxygen Delivery Method Room Air Weight Weight: 113 lb 15.664 oz Body Mass Index (BMI) 20.2 Physical Exam Const alert, oriented x3, no apparent distress and healthy appearing General Appearance: cooperative GI normal to inspection, nondistended, normoactive bowel sounds, soft to palpation, non-tender and non-distended Percussion: normal to percussion Rectal Exam: deferred Assessment & Plan Assessment/Plan (1) Gastritis, bile acid reflux: (2) IBS (irritable bowel syndrome): QUALIFIERS: Irritable bowel syndrome type: with both diarrhea and constipation Qualified Code(s): K58.2 - Mixed irritable bowel syndrome PLAN: Assessment and Plan Assessment and Plan (1) Gastritis, bile acid reflux: Status: Acute (2) IBS (irritable bowel syndrome): Status: Chronic Qualifiers: Irritable bowel syndrome type: with both diarrhea and constipation Qualified Code(s): K58.2 - Mixed irritable bowel syndrome Plan: Abdominal bloating/pressure with variable bowel habits (constipation alternating with loose stools) : Patient with recent ER visit for abdominal pressure/burning and inability to pass gas; subsequent use of OTC and prescribed agents led to bowel movements and now variable stool consistency including diarrhea. - Start Metamucil at night for two weeks to help solidify stool and improve consistency. Gastroesophageal reflux disease (GERD) : History of GERD noted since 2019; symptoms worsened recently; currently taking nighttime famotidine. - Continue famotidine (Pepcid) at night to decrease overnight acid production. Follow-up : Plans discussed for diagnostic evaluation of bowel symptoms. - Schedule colonoscopy (patient wishes to do it today). - Check if pill-based colonoscopy prep is available. Portions of this note were generated using voice recognition software ([employer]). I have reviewed the contents and every effort has been made to ensure accuracy; however, inadvertent errors in grammar, spelling, punctuation, or word choice may occur, that were not noted before signing the document and should not alter the intended clinical meaning. ]
--- NOTE | 2025-06-23 06:40 | PRE.ANES_ITS ---
ASA Classification* ASA Classification ASA Classification: 2 Assessment & Plan Anesthesia* Anesthesia Assessment Anesthesia Assessment: Discussed sedation and/or anesthesia options, risks, benefits, and alternatives with patient/parents/legal guardian/POA. Questions invited. The patient/parents/legal guardian/POA seems to understand and agrees to proceed with anesthesia plan. Reviewed the physical assessment, medical history, allergy history and patient home medications list prior to surgery/procedure/anesthetic and documented any changes. Performed airway and anesthesia risk assessments. Anesthesia Type Anesthesia Type: MAC Anesthesia Focused Assessment* Temperature: 98.7 F Pulse Rate: 92 Blood Pressure: 113/62 Respiratory Rate: 16 Pulse Ox: 97 Airway Assessment Mouth opens: >3 cm Mallampati Score: II Labs Anesthesia Preop lab: CBC WBC, (4.4-11.0) 10.3 K/mm3 05/09/25, 14:55 RBC, (4.2-5.4) 4.07 M/mm3 L 05/09/25, 14:55 Hgb, (12.0-15.0) 13.3 g/dL 05/09/25, 14:55 Hct, (37-47) 39.0 % 05/09/25, 14:55 Plt Count, (150-450) 329 K/mm3 05/09/25, 14:55 CHEMISTRY Potassium, (3.3-5.1) 3.6 mmol/L 05/09/25, 14:55 Sodium, (133-145) 141 mmol/L 05/09/25, 14:55 BUN, (4-19) 7 mg/dL 05/09/25, 14:55 Creatinine, (0.70-1.20) 0.67 mg/dL L 05/09/25, 14:55 Glucose, (70-99) 108 mg/dL H 05/09/25, 14:55 COAG Pre-Assessment Diagnosis/Proposed Procedure Planned Operative Procedure(s): Colonoscopy Anesthesia History Anesthesia History - deputy register of deeds: Anesthesia History - deputy register of deeds Hx Hospitalization No 06/19/25 14:14 Any Problems With Anesthesia No 06/19/25 14:14 Cholinesterase deficiency No 06/19/25 14:14 You/Your Family Experience No 06/19/25 14:14 fever (hyperthermia) with Relationship Recent Exposure to Contagious No 09/17/24 12:49 Disease Does patient have nerve No 06/19/25 14:14 stimulator Patient instructed to have device shut off --Does patient have Pacemaker No 06/23/25 05:55 or ICD? When Was Last Pacemaker Check QUESTION #4 FULL TEXT: You/Your Family Experience fever (hyperthermia) with Anesthesia Last Oral Intake Last Oral intake: Last Oral Intake NPO since 02:30 06/23/25 05:55 Meds taken in AM with sips of No 06/23/25 05:55 water? 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 - deputy register of deeds: PONV - deputy register of deeds Female Yes 06/19/25 14:14 HX of Motion Sickness No 06/19/25 14:14 HX of N/V After Surgery Yes 06/19/25 14:14 Non-Smoker No 06/19/25 14:14 Duration of Surgery greater No 06/19/25 14:14 than 60 minutes Number of Risk Factors 2 06/19/25 14:14 PONV Score Moderate Risk 06/19/25 14:14 Height & Weight Height & Weight: Anesthesia: Height & Weight Height 5 ft 3 in 06/23/25 05:55 Weight: 51.7 kg 06/23/25 05:55 Body Mass Index (BMI) 20.2 06/23/25 05:55 Respiratory Assessment Respiratory Assessment - deputy register of deeds: Respiratory Tract Infection Hx - deputy register of deeds Hx Respiratory Tract Infection No 06/19/25 14:14 STOP Sleep Apnea STOP Sleep Apnea - deputy register of deeds: STOP Sleep Apnea - deputy register of deeds Hx Hypertension Yes 06/19/25 14:14 Hx Sleep Apnea No 06/19/25 14:14 CPAP BIPAP Do you snore loudly (louder No 06/19/25 14:14 than talking or can be heard Do you often feel tired/ No 06/19/25 14:14 fatigued/ sleepy during daytime? Has anyone observed you stop No 06/19/25 14:14 breathing during sleep? STOP Results Negative 06/19/25 14:14 QUESTION #5 FULL TEXT : Do you snore loudly (louder than talking or can be heard through closed doors)? 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 Specify any problems Hx of Preganancy in last 3 No 06/19/25 14:14 Months Nurse Filling Out Transfusion JZOLLINGE 06/19/25 14:14 & Questions: Date: 06/19/25 06/19/25 14:14 Time: 14:16 06/19/25 14:14 Patient unable to answer at this time (ie. confused, unrespo /Reproduction History /Reproductive History - deputy register of deeds: /Reproductive Hx- deputy register of deeds Hx Now Gestational Age (in weeks): EDC: Hx Hx Para Hx Section SAB No 09/16/24 12:51 Does the father of the baby or his family experience fever w Father of the baby Malignant Hypertension history comment Active Medications Active Medications: Current Medications Generic Name Dose Route Start Last Admin Trade Name Freq PRN Reason Stop Dose Admin Lactated Ringer's 1,000 mls @ 15 mls/hr 06/23/25 05:45 06/23/25 06:04 IV 15 mls/hr .Q48H EDGARDO Administration PFSH Medical History Hypothyroid Thyroid disease Arthritis High cholesterol History of IBS Smoker History of stress test IBS (irritable bowel syndrome) GERD (gastroesophageal reflux disease) Home Medications ?Medication ?Instructions ?Recorded ?Last Taken ?Type levothyroxine 112 mcg capsule 112 mcg PO QDAY 06/27/24 Unknown History pravastatin 40 mg tablet 40 mg PO QDAY 06/27/24 Unkno wn History colestipol 1 gram tablet 1 g PO BID #60 tabs 11/14/24 Unknown Rx famotidine 40 mg tablet 40 mg PO QHS #90 tabs Unknown Rx pantoprazole 40 mg tablet,delayed 40 mg PO BID #180 ta bs 11/14/24 Unknown Rx release probiotic 2 tsp PO TID 06/02/25 Unknow n History Allergy/AdvReac Type Severity Reaction Status Date / Time citalopram (From Celexa) Allergy Unknown PT UNSURE Verified 06/23/25 05:54 OF REACTION clarithromycin (From Biaxin) Allergy Unknown PT UNABLE Verified 06/23/25 05:54 TO RESPOND-NEEDS F/U sulfamethoxazole (From Allergy Unknown PT UNSURE Verified 06/23/25 05:54 Bactrim) OF REACTION trimethoprim (From Bactrim) Allergy Unknown PT UNSURE Verified 06/23/25 05:54 OF REACTION atorvastatin (From Lipitor) Allergy PT UNSURE Verified 06/23/25 05:54 OF REACTION cefixime (From Suprax) Allergy PT UNABLE Verified 06/23/25 05:54 TO RESPOND-NEEDS F/U chlorzoxazone (From Parafon Allergy PT UNSURE Verified 06/23/25 05:54 Forte) OF REACTION ciprofloxacin (From Cipro) Allergy PT UNABLE Verified 06/23/25 05:54 TO RESPOND-NEEDS F/U diclofenac (From Voltaren) Allergy PT UNABLE Verified 06/23/25 05:54 TO RESPOND-NEEDS F/U flavoxate (From Urispas) Allergy PT UNABLE Verified 06/23/25 05:54 TO RESPOND-NEEDS F/U guaifenesin (From Entex [place]) Allergy PT UNABLE Verified 06/23/25 05:54 TO RESPOND-NEEDS F/U hyoscyamine (From Levsinex) Allergy PT UNSURE Verified 06/23/25 05:54 OF REACTION moxifloxacin (From Avelox) Allergy PT UNSURE Verified 06/23/25 05:54 OF REACTION paroxetine (From Paxil) Allergy PT UNSURE Verified 06/23/25 05:54 OF REACTION phenylephrine (From Entex LA) Allergy PT UNABLE Verified 06/23/25 05:54 TO RESPOND-NEEDS F/U phenylpropanolamine (From Allergy PT UNABLE Verified 06/23/25 05:54 Entex LA) TO RESPOND-NEEDS F/U Sulfa (Sulfonamide Allergy PT UNABLE Verified 06/23/25 05:54 Antibiotics) TO RESPOND-NEEDS F/U Surgical History History of colonoscopy History of esophagogastroduodenoscopy (EGD) Status post panniculectomy (~1980) History of cholecystectomy History of partial hysterectomy Social History Smoking Status: Current every day smoker tobacco type: cigarettes Review of Systems (Anesthesia) ROS Narrative System reviewed and no additional complaints, except as documented.
--- NOTE | 2025-06-23 07:19 | OP.COLON_ITS ---
Patient Name: Carol Alcocer Procedure Date: 06/23/2025 6:42 AM Date of : 1950 Age: 74 Procedure: Colonoscopy Indications: Clinically significant diarrhea of unexplained origin Providers: Chucky Woodall DO Referring MD: Krishna Campos Medicines: Monitored Anesthesia Care Patient Profile: This is a 74 year old female. Refer to note in patient chart for documentation of history and physical. Last Colonoscopy: several years ago. Complications: No immediate complications. Procedure: Pre-Anesthesia Assessment: - Prior to the procedure, a History and Physical was performed, and patient medications and allergies were reviewed. The patient is competent. The risks and benefits of the procedure and the sedation options and risks were discussed with the patient. All questions were answered and informed consent was obtained. Patient identification and proposed procedure were verified by the physician in the pre-procedure area. Mental Status Examination: alert and oriented. Airway Examination: normal oropharyngeal airway and neck mobility. Respiratory Examination: clear to auscultation. CV Examination: normal. Prophylactic Antibiotics: The patient does not require prophylactic antibiotics. Prior Anticoagulants: The patient has taken no anticoagulant or antiplatelet agents except for NSAID medication. ASA Grade Assessment: II - A patient with mild systemic disease. After reviewing the risks and benefits, the patient was deemed in satisfactory condition to undergo the procedure. The anesthesia plan was to use monitored anesthesia care (MAC). Immediately prior to administration of medications, the patient was re-assessed for adequacy to receive sedatives. The heart rate, respiratory rate, oxygen saturations, blood pressure, adequacy of pulmonary ventilation, and response to care were monitored throughout the procedure. The physical status of the patient was re-assessed after the procedure. After I obtained informed consent, the scope was passed under direct vision. Throughout the procedure, the patient's blood pressure, pulse, and oxygen saturations were monitored continuously. The Colonoscope was introduced through the anus and advanced to the terminal ileum. The colonoscopy was performed without difficulty. The patient tolerated the procedure well. The quality of the bowel preparation was adequate. The terminal ileum, ileocecal valve, appendiceal orifice, and rectum were photographed. Scope In: 6:51:36 AM Scope Withdrawal Time 0 hours 13 minutes 7 seconds Scope Out: 7:10:57 AM Total Procedure Duration Time 0 hours 19 minutes 21 seconds Findings: The perianal and digital rectal examinations were normal. An area of mildly congested mucosa was found in the sigmoid colon, in the descending colon, in the transverse colon and in the cecum. Biopsies were taken with a cold forceps for histology. Verification of patient identification for the specimen was done. Estimated blood loss was minimal. Multiple small and large-mouthed diverticula were found in the recto-sigmoid colon and sigmoid colon. The terminal ileum appeared normal. Biopsies were taken with a cold forceps for histology. Verification of patient identification for the specimen was done. Estimated blood loss was minimal. Impression: - Congested mucosa in the sigmoid colon, in the descending colon, in the transverse colon and in the cecum. Biopsied. - Diverticulosis in the recto-sigmoid colon and in the sigmoid colon. - The examined portion of the ileum was normal. Biopsied. Recommendation: - Discharge patient to home. - Resume previous diet. - Repeat colonoscopy is recommended for surveillance. The colonoscopy date will be determined after pathology results from today's exam become available for review. - Continue present medications. Procedure Code(s): --- Professional --- 32268, Colonoscopy, flexible; with biopsy, single or multiple CPT copyright 2021 [employer]. All rights reserved. The codes documented in this report are preliminary and upon manager spring review may be revised to meet current compliance requirements. Cuhcky Woodall DO 06/23/2025 7:18:26 AM This report has been signed electronically. Number of Addenda: 0 Note Initiated On: 06/23/2025 6:42 AM
--- NOTE | 2025-06-23 07:20 | OP.PROVAT_ITS ---
06/23/2025 Krishna Campos Re : Colonoscopy procedure for Carol Alcocer Mellr Andres This procedure was performed on Monday, June 23, 2025. My impressions and recommendations are as follows: Impressions : - Congested mucosa in the sigmoid colon, in the descending colon, in the transverse colon and in the cecum. Biopsied. - Diverticulosis in the recto-sigmoid colon and in the sigmoid colon. - The examined portion of the ileum was normal. Biopsied. Recommendations : - Discharge patient to home. - Resume previous diet. - Repeat colonoscopy is recommended for surveillance. The colonoscopy date will be determined after pathology results from today's exam become available for review. - Continue present medications. My findings are described in the full procedure note, which is enclosed. If I can be of further assistance, please feel free to contact me at . Sincerely, Chucky Woodall, 06/23/2025 7:18:26 AM This report has been signed electronically.
--- NOTE | 2025-06-23 07:22 | PCM.POST.ANE ---
Anesthesia: Postop Eval I Current Vital Signs Temperature: 97.1 F Pulse Rate: 99 Blood Pressure: 125/83 Respiratory Rate: 16 Pulse Ox: 98 Oxygen Delivery Method: Room Air Assessment Airway patent: Yes Spontaneous unlabored respirations: Yes Mental status: Awake nausea: No Vomiting: No Anesthesia Complication: No Fluid Hydration Crystalloid volume administer (ml): 700 Total IV fluid infused: 700 Progress Note Anesthesia document: Postop Eval 1 completed: Yes
== END 2025-06-23 07:56 | disposition home or self-care (01) ==
LOC: EN 05:14 → AC 05:15
PROVIDERS: PCP Family Medicine; Referring Provider Family Medicine; Visit Provider Internal Medicine Gastroenterology
PROC: 0DJD8ZZ Inspection of Lower Intestinal Tract, Via Natural or Artificial Opening Endoscopic (ICD-10-PCS; CPT 45378; principal; 2025-06-23 06:25)
DX: K21.9 Gastro-esophageal reflux disease without esophagitis (principal); K57.30 Diverticulosis of large intestine without perforation or abscess without bleeding; K58.2 Mixed irritable bowel syndrome; E78.00 Pure hypercholesterolemia, unspecified; F17.210 Nicotine dependence, cigarettes, uncomplicated
CPT/HCPCS: 45380; 88305; J2405

== ENCOUNTER 2025-06-24 15:34 | Emergency (ER) | payer MEDICARE, SELFPAY ==
[2025-06-24] VITALS (17 sets, daily range): BP systolic 82–131; BP diastolic 60–76; PULSE 99–133; RESP 14–32; TEMP 35.9–36.6; O2SAT 96–100; BMI 21.4
--- NOTE | 2025-06-24 15:50 | RAD_ITS ---
PROCEDURE: CHEST 1 VIEW (PORTABLE) 06/24/2025 REASON FOR EXAM: DYSPNEA, PALPITATIONS TECHNIQUE: Frontal view of the chest. COMPARISON: None available. FINDINGS: Hardware: None. Heart: The heart size is normal. Lungs: The lungs are clear. No pneumothorax or pleural effusion. Bones: The bones are unremarkable. RAD/Chest 1 View (Portable) IMPRESSION: No Acute Findings. Reading Location: [facility]
--- NOTE | 2025-06-24 15:50 | EKG12_ITS ---
Test Reason : palp Blood Pressure : */* mmHG Vent. Rate : 114 BPM Atrial Rate : 114 BPM P-R Int : 138 ms QRS Dur : 78 ms QT Int : 328 ms P-R-T Axes : -6 -8 43 degrees QTcB Int : 452 ms Sinus tachycardia with occasional Premature ventricular complexes Otherwise normal ECG Confirmed by Justin Mcpherson ([id number]), assignment editor AUSTIN WHEATLEY ([id number]) on 06/27/2025 8:15:22 AM Referred By: Confirmed By: Justin Mcpherson
--- NOTE | 2025-06-24 15:51 | EX.ED.DYSGE1 ---
HPI History of Present Illness Chief Complaint: Palpitations Detail of Chief Complaint: Palpitations Informant: patient Onset/Context/Timing Onset: Today Narrative Narrative: Patient presents to the emergency department with complaint of palpitations that she noticed this morning. She got up at 4 AM to use the restroom and felt lightheaded. She has had some mild chest tightness. Her head felt full and thought she was coming down with a sinus infection so she went saw her primary care physician today. She was started on doxycycline and apparently had some blood work and an EKG and then was called to come to the emergency department to be evaluated. Patient states that she has had palpitations off and on for years. No history of a flutter or A-fib. She denies recent travel or surgery. She denies any heart history. She denies any fever. She is a smoker. [facility] Medical History Hypothyroid Thyroid disease Arthritis High cholesterol History of IBS Smoker History of stress test IBS (irritable bowel syndrome) GERD (gastroesophageal reflux disease) Home Medications ?Medication ?Instructions ?Recorded ?Last Taken ?Type levothyroxine 112 mcg capsule 112 mcg PO QDAY 06/27/24 Unknown History pravastatin 40 mg tablet 40 mg PO QDAY 06/27/24 Unknown History colestipol 1 gram tablet 1 g PO BID #60 tabs 11/14/24 Unknown Rx famotidine 40 mg tablet 40 mg PO QHS #90 tabs 11/14/24 Unknown Rx pantoprazole 40 mg tablet,delayed 40 mg PO BID #180 tabs 11/14/24 Unknown Rx release probiotic 2 tsp PO TID 06/02/25 Unknown History Allergy/AdvReac Type Severity Reaction Status Date / Time citalopram (From Celexa) Allergy Unknown PT UNSURE Verified 06/24/25 15:38 OF REACTION clarithromycin (From Biaxin) Allergy Unknown PT UNABLE Verified 06/24/25 15:38 TO RESPOND-NEEDS F/U sulfamethoxazole (From Allergy Unknown PT UNSURE Verified 06/24/25 15:38 Bactrim) OF REACTION trimethoprim (From Bactrim) Allergy Unknown PT UNSURE Verified 06/24/25 15:38 OF REACTION atorvastatin (From Lipitor) Allergy PT UNSURE Verified 06/24/25 15:38 OF REACTION cefixime (From Suprax) Allergy PT UNABLE Verified 06/24/25 15:38 TO RESPOND-NEEDS F/U chlorzoxazone (From Parafon Allergy PT UNSURE Verified 06/24/25 15:38 Forte) OF REACTION ciprofloxacin (From Cipro) Allergy PT UNABLE Verified 06/24/25 15:38 TO RESPOND-NEEDS F/U diclofenac (From Voltaren) Allergy PT UNABLE Verified 06/24/25 15:38 TO RESPOND-NEEDS F/U flavoxate (From Urispas) Allergy PT UNABLE Verified 06/24/25 15:38 TO RESPOND-NEEDS F/U guaifenesin (From Entex LA) Allergy PT UNABLE Verified 06/24/25 15:38 TO RESPOND-NEEDS F/U hyoscyamine (From Levsinex) Allergy PT UNSURE Verified 06/24/25 15:38 OF REACTION moxifloxacin (From Avelox) Allergy PT UNSURE Verified 06/24/25 15:38 OF REACTION paroxetine (From Paxil) Allergy PT UNSURE Verified 06/24/25 15:38 OF REACTION phenylephrine (From Entex LA) Allergy PT UNABLE Verified 06/24/25 15:38 TO RESPOND-NEEDS F/U phenylpropanolamine (From Allergy PT UNABLE Verified 06/24/25 15:38 Entex LA) TO RESPOND-NEEDS F/U Sulfa (Sulfonamide Allergy PT UNABLE Verified 06/24/25 15:38 Antibiotics) TO RESPOND-NEEDS F/U Surgical History History of colonoscopy History of esophagogastroduodenoscopy (EGD) Status post panniculectomy (~1980) History of cholecystectomy History of partial hysterectomy Social History Smoking Status: Current every day smoker tobacco type: cigarettes ROS ROS ED Review of Systems ROS Unobtainable: other Constitutional Constitutional ED: Reports lethargy; Denies chills, fever(s), sweats or weight loss Eyes Eyes: Denies blurry vision, change in vision or diplopia ENT ENT ED: Denies rhinorrhea or sore throat Cardiovascular Cardiovascular: Reports chest pain, palpitations and racing heartbeat; Denies orthopnea Respiratory/Chest Respiratory/Chest: Reports dyspnea; Denies cough, dyspnea on exertion, orthopnea or sputum Gastrointestinal Gastrointestinal: Denies abdominal pain, diarrhea, nausea or vomiting Genitourinary Genitourinary ED: Denies dysuria, hematuria or urinary frequency Musculoskeletal Musculoskeletal: Denies arthralgias, back pain, myalgias or neck pain Integumentary Denies abscess, Abrasions or rash Neurologic Neurologic: Reports headache(s); Denies weakness Psychiatric Psychiatric: Denies anxiety, depression or suicidal thoughts Endocrine Endocrinology: Denies polydipsia, polyphagia or polyuria Hematologic/Lymphatic Hematologic/Lymphatic: Denies easy bleeding, easy bruising or lymphadenopathy Allergic/Immunologic Allergic/Immunologic ED: Denies mouth swelling, tongue swelling or urticaria EXAM Physical Exam Const Vital Signs: 06/24/25 15:36 06/24/25 16:18 06/24/25 16:27 Temperature 96.7 F L Temperature Source Temporal Pulse Rate 133 H 117 H Respiratory Rate 18 14 Blood Pressure 82/60 L 100/62 Blood Pressure Mean 67 72 Pulse Ox 100 97 Oxygen Delivery Method Room Air 06/24/25 16:30 06/24/25 16:35 06/24/25 16:45 Temperature Temperature Source Pulse Rate 113 H 108 H 110 H Respiratory Rate 23 H 17 Blood Pressure 100/62 Blood Pressure Mean 74 Pulse Ox 97 96 98 Oxygen Delivery Method Room Air 06/24/25 17:00 06/24/25 17:15 06/24/25 17:30 Temperature Temperature Source Pulse Rate 120 H 110 H 108 H Respiratory Rate 30 H 19 H 19 H Blood Pressure Blood Pressure Mean Pulse Ox 97 99 100 Oxygen Delivery Method 06/24/25 17:39 06/24/25 17:45 06/24/25 18:00 Temperature Temperature Source Pulse Rate 115 H 105 H 99 Respiratory Rate 26 H 19 H 20 H Blood Pressure 110/76 119/68 Blood Pressure Mean 88 83 Pulse Ox 100 100 98 Oxygen Delivery Method 06/24/25 18:15 06/24/25 18:30 06/24/25 18:45 Temperature Temperature Source Pulse Rate 109 H 101 H 100 Respiratory Rate 17 32 H 29 H Blood Pressure 131/70 H Blood Pressure Mean 87 Pulse Ox 97 100 98 Oxygen Delivery Method 06/24/25 19:00 Temperature Temperature Source Pulse Rate 101 H Respiratory Rate 26 H Blood Pressure Blood Pressure Mean Pulse Ox 98 Oxygen Delivery Method Positive well nourished and well developed General Appearance ED: well developed and NAD HEENT Reports TM's clear and moist mucous membranes normocephalic and atraumatic; Negative for trauma or tenderness Tympanic Membrane ED: Yes TM's clear Eyes PERRL and EOMs intact bilaterally General Eye ED: Negative for pale conjunctiva or scleral icterus Neck no lymphadenopathy, supple and no JVD General: Negative for tenderness Chest Wall inspection of chest normal and palpation of chest normal Chest: Negative for tenderness Resp normal respiratory effort and clear to auscultation bilaterally Effort and Inspection: Negative for respiratory distress or pain with movement Auscultation: Negative for rhonchi, wheezes or diminished lung sounds Cardio regular rhythm, S1 normal heart sound, S2 normal heart sound and no murmurs; Negative for regular rate Rate: tachycardic Peripheral Pulses: pulses 2+ throughout GI normal to inspection, nondistended, normoactive bowel sounds, soft to palpation, non-tender, non-distended and no masses Back/Spine no CVA tenderness and no thoracic nor lumbar tenderness Extremity normal to inspection General Extremety ED: Negative for edema General Extremity: Negative for edema Neuro oriented x3, CN's II-XII intact bilaterally, no sensory deficits noted and gait normal Sensorium / Orientation: awake, alert, oriented to person, oriented to place and oriented to time Motor Exam: strength 5/5 throughout and strength abnormal Psych mental status grossly normal Skin no rashes or lesions noted and no wounds MDM MDM MDM Narrative Medical decision making narrative: Patient presents to the emergency department complaint of palpitations and tachycardia. Seen earlier in the day by nurse practitioner who obtained some labs and apparently ordered a D-dimer that was elevated. Patient had a colonoscopy yesterday. She was referred to the ER for evaluation. Patient also was started on doxycycline for sinus infection. Patient clinically looks well on exam. Really not complaining of exertional symptoms. Describes just some minimal faint chest heaviness. IV line established. EKG obtained arrival shows sinus rhythm with rate of of 114 bpm with occasional PVCs and no acute ST segment changes. CBC with differential showed white count 6.5 with hemoglobin 13.4 and platelet count of 192. Chemistries unremarkable. Troponin was minimally elevated 15 and her D-dimer was elevated at 1.37. CTA of the chest was obtained and was unremarkable. 2-hour delta troponin obtained was 16 which is not significantly elevated. Delta is considered normal. Low suspicion for acute coronary syndrome. Heart score is a 4 given the minimal bump in her troponin which may be her baseline. Patient was given a liter Mustain fluid bolus. Urinalysis also obtained was negative. At this point she will be discharged to home. Advised to follow-up with primary care physician within next 3 to 5 days Lab Data Attestation: I reviewed the patient's lab results. Labs: Laboratory Results - last 24 hr 06/24/25 06/24/25 06/24/25 16:19 17:03 18:11 WBC 6.5 RBC 4.10 L Hgb 13.4 Hct 38.5 MCV 93.9 MCH 32.7 H MCHC 34.8 RDW Std Deviation 44.0 H RDW Coeff of Zana 12.8 Plt Count 192 MPV 8.9 Immature Gran % (Auto) 0.200 Neut % (Auto) 74.0 H Lymph % (Auto) 17.0 L Kimball % (Auto) 7.7 Eos % (Auto) 0.5 Baso % (Auto) 0.6 Absolute Neuts (auto) 4.8 Absolute Lymphs (auto) 1.11 Nucleated RBC % 0 D-Dimer Quant (PE/DVT) 1.37 H* Sodium 137 Potassium 3.5 Chloride 103 Carbon Dioxide 23.8 Anion Gap 10 BUN 6 Creatinine 0.69 L Estim Creat Clear Calc 47.32 L Est GFR (MDRD) Non-Af 90 BUN/Creatinine Ratio 8.0 L Glucose 98 Calcium 9.7 Troponin T High Sens 15 H D Troponin T Hi Sens 2 Hr 16 H Urine Color Straw Urine Clarity Clear Urine pH 7.0 Ur Specific Loa 1.005 Urine Protein Negative Urine Glucose (UA) Normal Urine Ketones 5 H Urine Occult Blood 10 H Urine Nitrite Negative Urine Bilirubin Negative Urine Urobilinogen Normal Ur Leukocyte Esterase Negative Urine RBC 0-5 SEEN Urine WBC 0-5 SEEN Ur Squamous Epith Cells 0-5 SEEN Urine Bacteria RARE Urine Mucus 0 SEEN Radiography Diagnostic Testing: Clinical Impression(s) from Imaging Studies Chest X-Ray 06/24/25 15:50 IMPRESSION: No Acute Findings. Reading [facility] Chest CTA 06/24/25 16:41 IMPRESSION: No evidence of pulmonary embolism. Reading Location: [facility] 1 view chest x-ray obtained interpreted by myself as no evidence of infiltrate or pneumothorax or acute disease process. Radiology in agreement. EKG Initial EKG: Attestation: I personally reviewed and interpreted this EKG as follows: Comments: Sinus rhythm with ventricular rate of 114 bpm with occasional PVC Discharge Plan Triage Chief Complaint: Palpitations ED Provider: Darien Fontanez Dx/Rx/DC Orders Clinical Impression: Palpitation, Frequent unifocal PVCs Instructions: PVCs, ED Tachycardia: PAT Prescriptions: No Action levothyroxine 112 mcg capsule 112 mcg PO QDAY pravastatin 40 mg tablet 40 mg PO QDAY colestipol 1 gram tablet 1 g PO BID Qty: 60 2RF famotidine 40 mg tablet 40 mg PO QHS Qty: 90 2RF pantoprazole 40 mg tablet,delayed release (DR/EC) 40 mg PO BID Qty: 180 2RF Rx Instructions: take 30 minutes before breakfast and supper probiotic 2 tsp PO TID Primary Care Provider: Krishna Campos Referrals: Krishna Campos MD [Primary Care Provider, Family Practice] - 3-5 Days Print Language: [place] Disposition Disposition: Home, Self Care
[2025-06-24] MEDS: 0.9% Normal Saline (1000mL) 1,000 ML 1000 ML IV (16:25)
[2025-06-24 16:26] LABS: Hematocrit 38.5 % (37-47); Hemoglobin 13.4 g/dL (12.0-15.0); Immature Granulocytes Count 0.010 X10^3/uL (0.0-0.0); Mean Corp Hgb Conc 34.8 g/dL (32-36); Mean Corpuscular Volume 93.9 fL (81-99); Mean Platelet Vol. 8.9 fl (6.2-12.0); NRBC Flagged by Analyzer 0 % (0-5); Platelet Count 192 K/mm3 (150-450); RBC Distribution Width CV 12.8 % (11.6-14.6); RBC Distribution Width SD 44.0 fl (35.1-43.9); Red Blood Count 4.10 M/mm3 (4.2-5.4); White Blood Count 6.5 K/mm3 (4.4-11.0)
[2025-06-24 16:40] LABS: D-Dimer Quantitative (DVT/PE) 1.37 FEU/ug/m (0.27-0.49)
--- NOTE | 2025-06-24 16:41 | CT_ITS ---
PROCEDURE: CTA CHEST W/WO CONTRAST 06/24/2025 REASON FOR EXAM: TACHYCARDIA, ELEVATED D-DIMER TECHNIQUE: Procedure Code: [id number] Modality: CT Procedure: CTA CHEST W/WO CONTRAST Multiplanar Sagittal and Coronal images were obtained. CONTRAST: Isovue 370 VOLUME: 75 mL One or more dose reduction techniques were used (e.g., Automated exposure control, adjustment of the mA and/or kV according to patient size, use of iterative reconstruction technique). RADIATION DOSE SUMMARY: CTDlvol: 3.55 mGy DLP: 170.46 mGycm COMPARISON: None. # of known CTs in the past 12 months: 0 # of known Cardiac Nuclear Medicine Studies in the past 12 months: 0 FINDINGS: Thoracic Aorta: No aneurysm. Heart: No cardiomegaly. Atherosclerotic calcifications of the coronary arteries. Pulmonary Vessels: No evidence of pulmonary embolism. Hardware: None. Lymph nodes: No lymphadenopathy. Lungs and Airways: Clear. Pleura: No pleural effusion or pneumothorax. Upper Abdomen: No acute abnormalities Bones: No acute bony abnormalities. CT/CTA Chest W/WO Contrast IMPRESSION: No evidence of pulmonary embolism. Reading Location: [facility]
[2025-06-24 16:54] LABS: Anion Gap 10 (7-18); BUN 6 mg/dL (4-19); BUN/Creat Ratio 8.0 RATIO (10-20); Calcium,Total 9.7 mg/dL (7.6-11.0); Carbon Dioxide 23.8 mmol/L (20.0-29.0); Chloride 103 mmol/L (96-106); Estimated Creatinine Clearance 47.32 ml/min (50-250); Glucose 98 mg/dL (70-99); Potassium 3.5 mmol/L (3.5-5.1); Troponin T High Sensitivity 15 ng/L (<=14)
[2025-06-24 17:09] LABS: Mucous, Urine 0 SEEN /hpf (<or=2+)
[2025-06-24 17:14] LABS: Color, Urine Straw (Yellow); Glucose, Dipstick Normal (Normal); Ketone-Dipstick 5 mg/dl (Negative); Leukocyte Esterase-Dipstick Negative /ul (Negative); Nitrite-Dipstick Negative (Negative); Occult Blood-Urine 10 /ul (Negative); Protein-Dipstick Negative (Negative); Specific Gravity, Urine 1.005 (1.002-1.030); Urine Bilirubin Dipstick Negative (Negative)
[2025-06-24 18:05] LABS: Red Blood Cells-Urine 0-5 SEEN /hpf (0-5); Squamous Epithelial Cells - UA 0-5 SEEN /hpf (5-10)
[2025-06-24 18:50] LABS: Troponin T High Sens 2 HR 16 ng/L (<=14)
== END 2025-06-24 19:13 | disposition home or self-care (01) ==
PROVIDERS: Emergency Provider Emergency Medicine; PCP Family Medicine; Visit Provider Emergency Medicine
DX: I49.3 Ventricular premature depolarization (principal); R00.2 Palpitations; J32.9 Chronic sinusitis, unspecified; E78.00 Pure hypercholesterolemia, unspecified; K21.9 Gastro-esophageal reflux disease without esophagitis; F17.210 Nicotine dependence, cigarettes, uncomplicated; R07.89 Other chest pain; R06.00 Dyspnea, unspecified; R51.9 Headache, unspecified
CPT/HCPCS: 71045; 71275; 80048; 81001; 84484; 85025; 85379; 87631; 93005; 96360; 96361; 99284; Q9967; A4216